=== PATIENT | male | born 1965 | race Caucasian/White ===

== ENCOUNTER 2019-09-17 09:48 | Emergency (ER) | payer MEDICAID ==
--- OUTSIDE RECORDS SUMMARY | 2019-09-17 09:51 | XMS REPORT ---
:1965 [facility] Address [address] [place] [address] Dr. Sargent. [address] [place] [id number] Care Team Providers Name Role Phone STEVE DOLAN Unavailable Unavailable Problems This patient has no known problems. Allergies, Adverse Reactions, Alerts This patient has no known allergies or adverse reactions. Medications This patient has no known medications. Encounters Start End Encounter Admission Attending Care Care Encounter Date/Time Date/Time Type Type Clinicians Facility Department ID 2019-06-26 2019-06-26 Inpatient [facility] [id number] 13:42:00 11:23:00 2019-01-26 2019-01-26 Inpatient [facility] [id number] 04:35:00 04:35:00 Results Test Description Test Time Test Comments Text Results Atomic Results Result Comments [place]ST [place] [address] Patient Name: LADARIUS MARTIN MR #: [id number] : (NOT 1965 Age/Sex: 51/M Req #: [id number] Adm Physician: PORTABLE) Ordered by: STEVE DOLAN MD Report #: [id number] Location: ER Room/Bed: Procedure: [id number] DX/CHEST SINGLE (NOT PORTABLE) Exam Date: 09/30/17 Exam Time: 2104 REPORT STATUS: Signed CHEST SINGLE (NOT PORTABLE), 09/30/2017 8:51 PM Technique : CHEST SINGLE (NOT PORTABLE) Comparison: None available. Clinical history: Shortness of breath, cough Findings: Limited by portable technique and soft tissue attenuation. Given this, grossly unremarkable appearance of the heart, mediastinum, lungs and pleural spaces.. Impression: 1. Lines/Tubes : None 2. No definite acute abnormality. Signed by: Dr Dane Broussard MD on 09/30/2017 9:36 PM Dictated By: DANE BROUSSARD MD 35 Transcribed By: TONY on 09/30 COPY TO: STEVE DOLAN MD
[2019-09-17] MEDS ORDERED: MORPHINE 4 MG/ML SYR ONE (10:42)
[2019-09-17] MEDS ORDERED: ONDANSETRON 4 MG/2 ML VIAL ONE (10:42)
[2019-09-17 11:12] LABS: Absolute Lymphocytes (CBC) 1.2 K/uL (0.7-4.9); Basophils % 0.8 % (0-1.3); Hematocrit 43.1 % (39.6-49.0); Lymphocytes % 16.1 % (15.3-44.8); MPV 8.9 fL (7.6-11.3); RBC Red Blood Cell Count 4.99 M/uL (4.33-5.43)
[2019-09-17 11:29] LABS: Albumin 3.8 g/dL (3.4-5.0); Bilirubin Direct 0.1 mg/dL (0-0.2); Bilirubin Total 0.5 mg/dL (0.2-1.0); Potassium 3.9 mmol/L (3.5-5.1); Protein, Total 6.9 g/dL (6.4-8.2)
--- NOTE | 2019-09-17 12:02 | RAD REPORT ---
EXAM DESCRIPTION: CTAbdomen Pelvis W Contrast - 09/17/2019 11:52 am CLINICAL HISTORY: Abdominal pain. ABD PAIN COMPARISON: <Comparisons> TECHNIQUE: Biphasic CT imaging of the abdomen and pelvis was performed with 100 ml non-ionic IV cont rast. All CT scans are performed using dose optimization technique as appropriate and may include automated exposure control or mA/KV adjustment according to patient size. FINDINGS: The lung bases are clear. The liver, spleen, pancreas, adrenal glands and right kidney are within normal limits. Punctate calcu yolande left kidney without hydronephrosis. No bowel obstruction, free air, free fluid or abscess. Sigmoid diverticulosis coli without diverticul itis. The appendix is normal. No evidence of significant lymphadenopathy. No suspicious bony findings. IMPRESSION: Sigmoid diverticulosis coli without diverticulitis. Punctate left renal calculus without hydronephrosis.
[2019-09-17] MEDS ORDERED: DICYCLOMINE HCL 10 MG CAP ONE (12:43)
--- NOTE | 2019-09-17 12:45 | EDPHYS ---
Physician Documentation [facility] Name: Lexa Bower Age: 53 yrs Sex: Male : 1965 Arrival Date: 09/17/2019 Time: 09:49 Bed 13 Private MD: ED Physician Pedro Rajan HPI: 09/17 10:35 This 53 yrs old Male presents to ER via EMS with complaints of kdr Nausea/Vomiting/Diarrhea, Abd Pain > 50 y/o. 10:35 The patient presents to the emergency department with nausea, that is mild, vomiting, kdr that is intermittent, diarrhea, that is intermittent, abdominal pain, of the left upper quadrant and left lower quadrant, described as achy, crampy, steady, vague,\E\. Onset: The symptoms/episode began/occurred this morning. Possible causes: unknown. The symptoms are aggravated by movement, pressure, The symptoms are alleviated by nothing. Associated signs and symptoms: Pertinent positives: abdominal pain, diarrhea, nausea, vomiting. Severity of symptoms: At their worst the symptoms were mild in the emergency department the symptoms are unchanged. The patient has experienced similar episodes in the past, a few times. The patient has not recently seen a physician. Historical: - Allergies: 09:56 NKDA; tw2 - Home Meds: 09:56 symbicort [Active]; Insulin: Regular Sub-Q [Active]; pain pump [Active]; Alprazolam tw2 Oral [Active]; Stadol NS Nasal [Active]; Albuterol Inhl [Active]; oxycodone 30 mg Oral tab 1 tab every 6 hours [Active]; blood pressure medicine unknown [Active]; - PMHx: 09:56 COPD; Depression; Diabetes - IDDM; GERD; High Cholesterol; Hypertension; Migraines; tw2 Seizures; - Immunization history:: Adult Immunizations. - Social history:: Smoking status: . - Ebola Screening: : Patient denies travel to an Ebola-affected area in the 21 days before illness onset. ROS: 10:35 Constitutional: Negative for fever, chills, and weight loss, Eyes: Negative for injury, kdr pain, redness, and discharge, ENT: Negative for injury, pain, and discharge, Neck: Negative for injury, pain, and swelling, Cardiovascular: Negative for chest pain, palpitations, and edema, Respiratory: Negative for shortness of breath, cough, wheezing, and pleuritic chest pain, Back: Negative for injury and pain, : Negative for injury, bleeding, discharge, and swelling, MS/Extremity: Negative for injury and deformity, Skin: Negative for injury, rash, and discoloration, Neuro: Negative for headache, weakness, numbness, tingling, and seizure activity. Psych: Negative for depression, anxiety, suicide ideation, homicidal ideation, and hallucinations, Allergy/Immunology: Negative for hives, rash, and allergies, Endocrine: Negative for neck swelling, polydipsia, polyuria, polyphagia, and marked weight changes, Hematologic/Lymphatic: Negative for swollen nodes, abnormal bleeding, and unusual bruising. 10:35 Abdomen/GI: Positive for abdominal pain, nausea and vomiting, diarrhea, Negative for constipation, abdominal distension, black/tarry stool, rectal pain. Exam: 10:35 Constitutional: This is a well developed, well nourished patient who is awake, alert, kdr and in mild distress. Head/Face: Normocephalic, atraumatic. Eyes: Pupils equal round and reactive to light, extra-ocular motions intact. Lids and lashes normal. Conjunctiva and sclera are non-icteric and not injected. Cornea within normal limits. Periorbital areas with no swelling, redness, or edema. Neck: Trachea midline, no thyromegaly or masses palpated, and no cervical lymphadenopathy. Supple, full range of motion without nuchal rigidity, or vertebral point tenderness. No Meningismus. Chest/axilla: Normal chest wall appearance and motion. Nontender with no deformity. No lesions are appreciated. Cardiovascular: Regular rate and rhythm with a normal S1 and S2. No gallops, murmurs, or rubs. Normal PMI, no JVD. No pulse deficits. Respiratory: Lungs have equal breath sounds bilaterally, clear to auscultation and percussion. No rales, rhonchi or wheezes noted. No increased work of breathing, no retractions or nasal flaring. Back: No spinal tenderness. No costovertebral tenderness. Full range of motion. Skin: Warm, dry with normal turgor. Normal color with no rashes, no lesions, and no evidence of cellulitis. MS/ Extremity: Pulses equal, no cyanosis. Neurovascular intact. Full, normal range of motion. Neuro: Awake and alert, GCS 15, oriented to person, place, time, and situation. Cranial nerves II-XII grossly intact. Motor strength 5/5 in all extremities. Sensory grossly intact. Cerebellar exam normal. Normal gait. Psych: Awake, alert, with orientation to person, place and time. Behavior, mood, and affect are within normal limits. 10:35 Abdomen/GI: Inspection: abdomen appears normal, Bowel sounds: diminished, in all quadrants, Palpation: soft, mild abdominal tenderness, in the left upper quadrant and left lower quadrant, mass, is not appreciated, rebound tenderness, is not appreciated, voluntary guarding, is not appreciated, involuntary guarding, is not appreciated. Vital Signs: 09:57 BP 172 / 126; Pulse 86; Resp 17; Temp 97.9(TE); Pulse Ox 96% on R/A; Weight 117.93 kg tw2 (R); Pain 10/10; 10:07 BP 142 / 97; Pulse 64; Resp 17; Pulse Ox 98% on R/A; tw2 10:50 BP 161 / 117; Pulse 95; Resp 17; Pulse Ox 98% on R/A; tw2 12:02 BP 174 / 115; Pulse 99; Resp 17; Pulse Ox 98% on R/A; tw2 13:15 BP 155 / 97; Pulse 90; Resp 17; Pulse Ox 99% on R/A; tw2 MDM: 12:44 Patient medically screened. kdr 12:51 Data reviewed: vital signs, nurses notes, lab test result(s), radiologic studies. kdr Counseling: I had a detailed discussion with the patient and/or guardian regarding: the historical points, exam findings, and any diagnostic results supporting the discharge/admit diagnosis, lab results, radiology results, the need for outpatient follow up. 09/17 10:26 Order name: Basic Metabolic Panel; Complete Time: 11:30 kdr 09/17 10:26 Order name: CBC with Diff; Complete Time: 11:28 kdr 09/17 10:26 Order name: Creatinine for Radiology; Complete Time: 11:28 kdr 09/17 10:26 Order name: Hepatic Function; Complete Time: 11:30 kdr 09/17 10:26 Order name: Lipase; Complete Time: 11:30 kdr 09/17 10:34 Order name: CT Abd/Pelvis - IV Contrast Only; Complete Time: 12:41 kdr 12/02 10:26 Order name: IV Saline Lock; Complete Time: 10:49 kdr 09/17 10:26 Order name: Labs collected and sent; Complete Time: 10:49 kdr 09/17 12:07 Order name: PO challenge; Complete Time: 12:16 kdr Administered Medications: 10:43 Drug: Zofran 4 mg Route: IVP; Site: right antecubital; tw2 12:17 Follow up: Response: No adverse reaction; Nausea is decreased tw2 10:45 Drug: morphine 4 mg Route: IVP; Site: right antecubital; tw2 12:16 Follow up: Response: No adverse reaction; Pain is unchanged, physician notified; RASS: tw2 Alert and Calm (0) 12:42 Drug: Bentyl 20 mg Route: PO; tw2 13:15 Follow up: Response: No adverse reaction tw2 Disposition: 09/17/19 12:44 Discharged to Home. Impression: Abdominal and pelvic pain, Nausea, Nausea and vomiting, Diarrhea, unspecified. - Condition is Stable. - Discharge Instructions: Abdominal Pain, Adult, [id number]. - Prescriptions for Zofran ODT 4 mg Oral tablet,disintegrating - place 2 tablet by TRANSLINGUAL route every 8 hours As needed; 16 tablet. Bentyl 20 mg Oral Tablet - take 1 tablet by ORAL route every 6 hours As needed; 20 tablet. Pepcid 20 mg Oral Tablet - take 1 tablet by ORAL route every 12 hours for 5 days; 10 tablet. Tramadol 50 mg Oral Tablet - take 1 tablet by ORAL route every 8 hours as needed; 12 tablet. - Medication Reconciliation Form, Thank You Letter, Prescription Opioid Use form. - Follow up: Private Physician; When: 2 - 3 days; Reason: If symptoms return, Further diagnostic work-up, Recheck today's complaints, Continuance of care, Re-evaluation by your physician. - Problem is an acute exacerbation. - Symptoms have improved. Signatures: Dispatcher [employer] EDMS Pedro Rajan MD MD kdr Lupe Anderson RN RN tw2 Corrections: (The following items were deleted from the chart) 12:44 12:44 09/17/2019 12:44 Discharged to Home. Impression: Abdominal and pelvic pain. kdr Condition is Stable. Forms are Medication Reconciliation Form, Thank You Letter, Antibiotic Education, Prescription Opioid Use. Follow up: Private Physician; When: 2 - 3 days; Reason: If symptoms return, Further diagnostic work-up, Recheck today's complaints, Continuance of care, Re-evaluation by your physician. Problem is an acute exacerbation. Symptoms have improved. kdr 13:18 12:44 09/17/2019 12:44 Discharged to Home. Impression: Abdominal and pelvic pain; tw2 Nausea; Nausea and vomiting; Diarrhea, unspecified. Condition is Stable. Forms are Medication Reconciliation Form, Thank You Letter, Antibiotic Education, Prescription Opioid Use. Follow up: Private Physician; When: 2 - 3 days; Reason: If symptoms return, Further diagnostic work-up, Recheck today's complaints, Continuance of care, Re-evaluation by your physician. Problem is an acute exacerbation. Symptoms have improved. kdr
--- NOTE | 2019-09-17 12:45 | ER ---
Nurse's Notes [facility] Name: Lexa Bower Age: 53 yrs Sex: Male : 1965 Arrival Date: 09/17/2019 Time: 09:49 Bed 13 Private MD: Diagnosis: Abdominal and pelvic pain;Nausea;Nausea and vomiting;Diarrhea, unspecified Presentation: 09/17 09:52 Presenting complaint: EMS states: pt c/o NVD since last night, was living in an tw2 assisted living facility and was going to be transferred to another one and they have his medicine but he hasnt had any since last night, vs stable, BGL 334, 4mg IV Zofran given. Transition of care: patient was not received from another setting of care. Onset of symptoms was September 17, 2019. Risk Assessment: Do you want to hurt yourself or someone else? Patient reports no desire to harm self or others. Initial Sepsis Screen: Does the patient meet any 2 criteria? No. Patient's initial sepsis screen is negative. Does the patient have a suspected source of infection? No. Patient's initial sepsis screen is negative. Care prior to arrival: Medication(s) given: zofran 4 mg, IV initiated. 20 GA, in the right antecubital area. 09:52 Method Of Arrival: EMS: [facility] tw2 09:52 Acuity: JENNY 3 tw2 Triage Assessment: 09:54 General: Appears uncomfortable, obese, unkempt, Behavior is cooperative. Pain: tw2 Complains of pain in abdomen. GI: Reports lower abdominal pain, upper abdominal pain, diarrhea, nausea, vomiting. Historical: - Allergies: 09:56 NKDA; tw2 - Home Meds: 09:56 symbicort [Active]; Insulin: Regular Sub-Q [Active]; pain pump [Active]; Alprazolam tw2 Oral [Active]; Stadol NS Nasal [Active]; Albuterol Inhl [Active]; oxycodone 30 mg Oral tab 1 tab every 6 hours [Active]; blood pressure medicine unknown [Active]; - PMHx: 09:56 COPD; Depression; Diabetes - IDDM; GERD; High Cholesterol; Hypertension; Migraines; tw2 Seizures; - Immunization history:: Adult Immunizations. - Social history:: Smoking status: . - Ebola Screening: : Patient denies travel to an Ebola-affected area in the 21 days before illness onset. Screenin:58 Abuse screen: Denies threats or abuse. Nutritional screening: No deficits noted. tw2 Tuberculosis screening: No symptoms or risk factors identified. Fall Risk None identified. Assessment: 10:08 General: Appears uncomfortable, obese, unkempt, Behavior is cooperative, appropriate tw2 for age, fussy, pt moaning continuously.. Pain: Complains of pain in abdomen. Neuro: Level of Consciousness is awake, alert, obeys commands, Oriented to person, place, time, situation. Cardiovascular: Heart tones S1 S2 Patient's skin is warm and dry. Respiratory: Airway is patent Respiratory effort is even, unlabored, Respiratory pattern is regular, symmetrical, Breath sounds are clear bilaterally. GI: Abdomen is round obese, Bowel sounds present X 4 quads. GI: Reports lower abdominal pain, upper abdominal pain, cramping, diarrhea, nausea, vomiting. : No signs and/or symptoms were reported regarding the genitourinary system. EENT: No signs and/or symptoms were reported regarding the EENT system. Derm: No signs and/or symptoms reported regarding the dermatologic system. Musculoskeletal: Circulation, motion, and sensation intact. 10:09 Reassessment: pt request bedside commode at this time, states "I am about to poop tw2 myself", bedside commode and wipes provided. 10:49 Reassessment: No changes from previously documented assessment. Patient and/or family tw2 updated on plan of care and expected duration. Pain level reassessed. Patient is alert, oriented x 3, equal unlabored respirations, skin warm/dry/pink. 12:02 Reassessment: Patient appears in no apparent distress at this time. Patient and/or tw2 family updated on plan of care and expected duration. Pain level reassessed. Patient is alert, oriented x 3, equal unlabored respirations, skin warm/dry/pink. 12:17 Reassessment: Patient and/or family updated on plan of care and expected duration. Pain tw2 level reassessed. Patient is alert, oriented x 3, equal unlabored respirations, skin warm/dry/pink. pt states "pain never went away" Patient states symptoms have not improved. 12:51 Reassessment: pt asked me to call mother at [phone] for ride, no answer, left msg. tw2 spoke with Brother Jesús at [phone] and he said mother is on the way up here at this time. 13:12 Reassessment: mother is speaking with Dr. Rajan at this time. tw2 Vital Signs: 09:57 BP 172 / 126; Pulse 86; Resp 17; Temp 97.9(TE); Pulse Ox 96% on R/A; Weight 117.93 kg tw2 (R); Pain 10/10; 10:07 BP 142 / 97; Pulse 64; Resp 17; Pulse Ox 98% on R/A; tw2 10:50 BP 161 / 117; Pulse 95; Resp 17; Pulse Ox 98% on R/A; tw2 12:02 BP 174 / 115; Pulse 99; Resp 17; Pulse Ox 98% on R/A; tw2 13:15 BP 155 / 97; Pulse 90; Resp 17; Pulse Ox 99% on R/A; tw2 ED Course: 09:49 Patient arrived in ED. iw 09:49 Bed in low position. Call light in reach. Side rails up X2. tire inspector on. Pulse tw2 ox on. NIBP on. Warm blanket given. 09:52 Lupe Anderson, KATHY is Primary Nurse. tw2 09:54 Triage completed. tw2 09:54 Arm band placed on. tw2 10:04 Pedro Rajan MD is Attending Physician. kdr 11:53 CT Abd/Pelvis - IV Contrast Only In Process Unspecified. EDMS 12:57 Awaiting transportation, Awaiting: prior to discharge at this time, mother is on her tw2 way here to our facility per brother Jesús. 12:57 No provider procedures requiring assistance completed. Maintain EMS IV. Dressing tw2 intact. Good blood return noted. Site clean \\T\\ dry. Gauge \\T\\ site: 20g RIGHT AC. 13:18 IV discontinued, intact, bleeding controlled, No redness/swelling at site. Pressure tw2 dressing applied. Administered Medications: 10:43 Drug: Zofran 4 mg Route: IVP; Site: right antecubital; tw2 12:17 Follow up: Response: No adverse reaction; Nausea is decreased tw2 10:45 Drug: morphine 4 mg Route: IVP; Site: right antecubital; tw2 12:16 Follow up: Response: No adverse reaction; Pain is unchanged, physician notified; RASS: tw2 Alert and Calm (0) 12:42 Drug: Bentyl 20 mg Route: PO; tw2 13:15 Follow up: Response: No adverse reaction tw2 Outcome: 12:44 Discharge ordered by . kdr 13:17 Discharged to home via wheelchair, with family. tw2 13:17 Condition: stable 13:17 Discharge instructions given to patient, family, Instructed on discharge instructions, follow up and referral plans. no drinking with medication, no driving heavy equipment, medication usage, Demonstrated understanding of instructions, follow-up care, medications, Prescriptions given X 4. 13:18 Patient left the ED. tw2 Signatures: Dispatcher [employer] EDMS Pedro Rajan MD MD kdr Williams, Irene, RN RN iw Lupe Anderson RN RN tw2 Corrections: (The following items were deleted from the chart) 10:14 10:08 General: Appears uncomfortable, obese, unkempt, Behavior is cooperative, tw2 appropriate for age, tw2
[2019-09-17 13:50] VITALS: TEMP 97.9
[2019-09-17 13:56] VITALS: BP 155/97; O2SAT 99
== END 2019-09-17 13:18 | disposition home or self-care (01) ==
LOC: ER 09:48
DX: R11.2 Nausea with vomiting, unspecified (principal); R19.7 Diarrhea, unspecified; I10 Essential (primary) hypertension; E11.9 Type 2 diabetes mellitus without complications; E78.00 Pure hypercholesterolemia, unspecified; F32.9 Major depressive disorder, single episode, unspecified; J44.9 Chronic obstructive pulmonary disease, unspecified; G40.909 Epilepsy, unspecified, not intractable, without status epilepticus; Z79.4 Long term (current) use of insulin
CPT/HCPCS: 85025; 80048; 36415; 80076; 83690; 74177; 96375; 96374; 99284; Q9967; J2405

== ENCOUNTER 2021-03-09 21:22 | Emergency (ER) | payer MEDICAID ==
--- OUTSIDE RECORDS SUMMARY | 2021-03-09 21:32 | XMS REPORT | Continuity of Care Document ---
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 40 mg Product Wasted: _0__ mg NS (Bolus) No 1,000 mL, Me moria IV 06-26 1,000 l 16:33: ml/hr, Infuse Over: 1 hr, Route: IV, ONCE, Priority: STAT, Dosing Weight 127.273 kg, Start date: 06/26/19 11:33:00 CDT, Stop date: 06/26/19 11:33:00 CDT Saline No Notes: Memoria Flush 0.9% 06-26 (Same as: l 16:26: BD [place] 00 Posiflush) Magnesium No 2 gm, Memoria Sulfate 06-26 Route: l 16:26: IVPB, [place] ONCE, Dosing Weight 117.926, kg, Priority: STAT, Start date: 06/26/19 11:26:00 CDT, Stop date: 06/26/19 11:26:00 CDT methylPREDN 2019-0 No 80 mg, Vance valerie ISolone 06-26 Route: l SODium 16:26: IVP, ONCE, Lindsay nn SUCCinate 00 Dosing Weight 117.926, kg, Priority: STAT, Start date: 06/26/19 11:26:00 CDT, Stop date: 06/26/19 11:26:00 CDT Albuterol No 9 mL, Memoria 0.833 MG/ML 06-26 Route: l / 16:26: NEB, Drug Nayan Ipratropium Form: [place] SOLN, 0.167 MG/ML Dosing Inhalant Weight Solution 117.926, kg, ONCE, STAT, Start date: 06/26/19 11:26:00 CDT, Stop date: 06/26/19 11:26:00 CDT levofloxaci Yes 750 mg = 1 Memoria n 750 mg 4-15 tab, PO, l oral tablet 20:43: Daily, X 7 [place] 00 day, # 7 tab, 0 Refill(s) insulin Yes 45 unit, Memori a isophane 4-15 SUB-Q, l (NPH) 100 20:43: Q12H, # 10 He rmann units/mL 00 mL, 0 human Refill(s) recombinant subcutaneou s suspension insulin, No Notes: Memoria isophane 4-14 Roll in l 16:51: palms of hands gently; Do not shake vigorously . (Same as: NovoLIN N, Humulin N) Do not hold insulin without contacting prescriber "single patient use only" WASTE: F/P - Black; E - Municipal Trash Bin Stable for 14 days at room temperatur e Expires in days from ____Date Docusate No Notes: Memoria Sodium 100 4-13 (Same as: l MG Oral 22:00: Colace) Nayan Capsule (Do Not [Colace] Crush) Diphenhydra No Notes: Vance valerie mine 4-13 (Same as: l 17:20: Benadryl) Milk of No Notes: Memoria Magnesia 4-13 (Same as: l 17:20: Milk of Magnesia, MOM) Simethicone No Notes: Vance valerie 4-13 (Same as: l 17:20: Mylicon) Ondansetron No Notes: Vance valerie 4-13 (Same as: l 17:20: Zofran) MEDICATION WASTE Product Size: 4 mg Product Wasted: ___ mg Tessalon No Notes: Memoria Perles 4-13 (Same As: l 17:20: Tessalon Perles) "Do Not Crush" metoprolol No Notes: Memor ia extended 4-13 (Same as: l release 14:36: Toprol XL) Do Not Crush insulin, No Notes: Memoria isophane 4-13 Roll in l 14:36: palms of [place] 00 hands gently; Do not shake vigorously . (Same as: Humulin N) Do not hold insulin without contacting prescriber WASTE: F/P - Black; E - Municipal Trash Bin Stable for 28 days at room temperatur e Expires in days from ____Date Azithromyci No Notes: Vance valerie n 4-13 Take 1 l 14:00: hour Nayan 00 before or 2 hours after meals. (Same As: Zithromax) duloxetine No Notes: Memor ia 4-13 (Same as: l 14:00: Cymbalta) (Do Not Crush) Diltiazem No Notes: Memori a 4-13 (Same l 14:00: as:Cardize Nayan m CD) Before meals. DO NOT CRUSH. Prednisone No Notes: Memor ia 4-13 Take with l 14:00: food. [place] 00 Mirtazapine No Notes: Vance valerie 4-13 (Same l 02:00: as:Remeron ) insulin, No Notes: Memoria isophane 4-13 Roll in l 02:00: palms of Nayan 00 hands gently; Do not shake vigorously . (Same as: Humulin N) Do not hold insulin without contacting prescriber WASTE: F/P - Black; E - Municipal Trash Bin Stable for 28 days at room temperatur e Expires in days from ____Date Clonazepam No Notes: Memor ia 4-13 (Same As: l 02:00: KlonoPIN) atorvastati No Notes: Vance valerie n -13 (Same As: l 02:00: Lipitor) Divalproex No 1,000 mg, Me moria Sodium 500 - 4 tab, l MG Enteric 02:00: Route: PO, H ermann Coated Drug form: Tablet ECTAB, BID, Dosing Weight 117.926, kg, Start date: 01/26/19 21:00:00 CDT, Duration: 30 day, Stop date: 02/25/19 9:00:00 CDT, Delayed Release tablet Baclofen No Notes: Memoria 12 (Same As: l 22:00: Lioresal) Divalproex No 500 mg, Vance valerie Sodium 500 01-26 Route: PO, l MG Enteric 21:00: Drug form: H ermann Coated ECTAB, Tablet Q8H, Dosing Weight 117.926, kg, Start date: 01/26/19 16:00:00 CDT, Duration: 30 day, Stop date: 02/25/19 8:00:00 CDT, Delayed Release tablet 24 HR No Notes: Memoria Metoprolol -12 (Same as: l Tartrate 50 19:30: Toprol XL) MG Extended May split Release tab, but Tablet do not [Toprol] crush. baclofen 5 Yes 5 mg = 1 Mem oria mg oral 4-12 tab, PO, l tablet 19:02: BID, 0 Refill(s) Haldol No Notes: Memoria 4-12 (Same as: l 18:43: Haldol) zolpidem No Notes: Memoria 4-12 (Same As: l 18:41: Ambien) Acetaminoph 2019-0 No Notes: Vance valerie en 325 MG / 4-12 Same as l Hydrocodone 18:40: Panacea Lindsay nn Bitartrate 00 325-7.5mg 7.5 MG Oral Do not Tablet exceed [Panacea 4gm/day of 7.5/325] acetaminop Divalproex No 500 mg, 2 Me moria Sodium 500 4-12 tab, l MG Enteric 17:00: Route: PO, H ermann Coated 00 Drug form: Tablet ECTAB, Lunch, Dosing Weight 117.926, kg, Start date: 01/26/19 12:00:00 CDT, Duration: 30 day, Stop date: 02/24/19 12:00:00 CDT, Delayed Release tablet Ceftriaxone No Notes: Vance valerie -12 (Same As: l 17:00: Rocephin). Nayan 00 Use with 100 mL NS and infuse over 30 min MEDICATION WASTE Product Size: 1000 mg Product Wasted: ___ mg Regular Yes See Memoria Insulin, -12 Instructio l Human 100 16:41: ns, SUB-Q, He rmann UNT/ML 00 0 Injectable Refill(s) Solution [Humulin R] Baclofen No .5, PO, Memori a 4-12 BID, 0 l 16:32: Refill(s) Nayan 00 atorvastati Yes 20 mg = 1 M emoria n 20 mg 4-12 tab, PO, l oral tablet 16:14: Bedtime, # Nayan 00 90 tab, 1 Refill(s) Mirtazapine Yes 15 mg = 1 M emoria 15 MG Oral 4-12 tab, PO, l Tablet 16:14: Bedtime, # Lindsay nn 00 30 tab, 0 Refill(s) DULoxetine Yes 60 mg = 2 Me moria 30 mg oral 4-12 cap, PO, l delayed 16:14: Daily, # Tony n release 00 90 cap, 0 capsule Refill(s) Lorazepam No Notes: Memori a 4-12 (Same as: l 16:14: Ativan) Nayan 00 zolpidem 10 Yes 10 mg = 1 M emoria mg 4-12 tab, SL, l sublingual 16:14: Bedtime, Her adkins tablet 00 PRN for sleep, 0 Refill(s) clonazePAM Yes 1 mg = 1 Mem oria 1 mg oral 4-12 tab, PO, l tablet 16:14: BID, # 60 Tony n 00 tab, 0 Refill(s) diltiazem Yes 180 mg = 1 Me moria 180 mg/24 4-12 cap, PO, l hours oral 16:14: Daily, # Her adkins capsule, 00 30 cap, 0 extended Refill(s) release Glipizide Yes 10 mg = 1 Mem oria 10 MG Oral 4-12 tab, PO, l Tablet 16:14: BID-Before Lindsay nn 00 Meals, # 180 tab, 1 Refill(s) metoprolol Yes 50, PO, Vance valerie 50 mg oral 4-12 Daily, # l tablet, 16:14: 30 tab, 0 Lindsay nn extended 00 Refill(s) release Metformin Yes 1,000 mg = Me moria hydrochlori 4-12 1 tab, PO, l de 1000 MG 16:14: BID-Meals, H ermann Oral Tablet 00 # 30 tab, 0 Refill(s) Magnesium No Notes: Memori a Sulfate 01-26 WASTE: F/P l 16:10: - Sink; E - Municipal Trash Bin Amlodipine No Notes: Memor ia -12 (Same as: l 16:06: Norvasc) Insulin No Notes: Memoria Lispro -12 (Same as: l 16:04: Humalog ) Roll in palms of hands gently; Do not shake `vigorousl y. "Single Patient Use Only " WASTE: F/P - Black; E - Municipal Trash Bin Stable for 28 days at room temperatur e. Expires in days from ____Date Dextrose No 25 gm, 50 Vance valerie 50% Syringe 4-12 mL, Route: l 16:04: IVP, Drug Form: INJ, Dosing Weight 117.926, kg, PRN, PRN Blood Glucose Results, Start date: 01/26/19 11:04:00 CDT, Duration: 30 day, Stop date: 02/25/19 11:03:00 CDT Glucagon 2019-0 No 1 mg, Memoria 4-12 Route: IM, l 16:04: Drug form: Nayan PDR/INJ, PRN, Dosing Weight 117.926, kg, PRN Blood Glucose Results, Start date: 01/26/19 11:04:00 CDT, Duration: 30 day, Stop date: 02/25/19 11:03:00 CDT Albuterol 2018-0 No Notes: Memori a 0.833 MG/ML - (Same as: l / 13:00: Duoneb) Ipratropium 00 Badger 0.167 MG/ML Inhalant Solution methylPREDN 2018-0 No Notes: Vance valerie ISolone -12 (Same l SODium 13:00: as:Solu-ME Lindsay nn SUCCinate 00 DROL, A-Methapre d) Insulin 2018- No Notes: Memoria Lispro -12 (Same as: l 10:51: Humalog ) Roll in palms of hands gently; Do not shake `vigorousl y. "Single Patient Use Only " WASTE: F/P - Black; E - Municipal Trash Bin Stable for 28 days at room temperatur e. Expires in days from ____Date Glucagon 2019-0 No 1 mg, Memoria 4-12 Route: IM, l 10:51: Drug form: [place] PDR/INJ, PRN, Dosing Weight 127.273, kg, PRN Blood Glucose Results, Priority: STAT, Start date: 01/26/19 5:51:00 CDT, Duration: 30 day, Stop date: 02/25/19 5:50:00 CDT Dextrose 2019-0 No 25 gm, 50 Vance valerie 50% Syringe 4-12 mL, Route: l 10:51: IVP, Drug Form: INJ, Dosing Weight 127.273, kg, PRN, PRN Blood Glucose Results, Start date: 01/26/19 5:51:00 CDT, Duration: 30 day, Stop date: 02/25/19 5:50:00 CDT Saline 2019-0 No Notes: Memoria Flush 0.9% -12 (Same as: l 10:51: BD Nayan 00 Posiflush) Azithromyci No Notes: Vance valerie n 4-12 Take 1 l 10:51: hour [place] 00 before or 2 hours after meals. (Same As: Zithromax) Sodium No 1,000 mL, Memori a Chloride -12 1000 l 0.9% 06:53: ml/hr, [place] (Bolus) IV 00 Infuse Over: 1 hr, Route: IV, 1,000, Drug form: INJ, ONCE, Priority: STAT, Dosing Weight 127.273 kg, Start date: 01/26/19 1:53:00 CDT, Stop date: 01/26/19 1:53:00 CDT Aspirin No Notes: Memoria 4-12 Take with l 05:26: food. Morphine 2016-10 No 4 mg, Memoria 1-12 Route: l 21:24: IVP, ONCE, Dosing Weight 136.364, kg, Priority: STAT, Start date: 08/28/17 15:24:00 BRASS PICKLER, Stop date: 08/28/17 15:24:00 BRASS PICKLER Ondansetron 2016-10 No 4 mg, Memor ia 10-28 Route: l 21:24: IVP, Drug form: INJ, ONCE, Dosing Weight 136.364, kg, Priority: STAT, Start date: 08/28/17 15:24:00 BRASS PICKLER, Stop date: 08/28/17 15:24:00 BRASS PICKLER Lasix No 20 mg, Memoria 3-13 Route: l 09:21: IVP, Drug form: INJ, ONCE, Dosing Weight 122.727, kg, Priority: STAT, Start date: 12/27/16 4:21:00 CDT, Stop date: 12/27/16 4:21:00 CDT Ativan No Notes: Memoria 3-13 (Same as: l 09:08: Ativan) Ketorolac No 30 mg, Memori a 3-13 Route: IM, l 06:57: ONCE, Dosing Weight 122.727, kg, Start date: 12/27/16 1:57:00 CDT, Stop date: 12/27/16 1:57:00 CDT Benadryl No 25 mg, 1 Memor ia 3-13 tab, l 06:56: Route: PO, [place] 00 Drug form: TAB, ONCE, Dosing Weight 122.727, kg, Priority: STAT, Start date: 12/27/16 1:56:00 CDT, Stop date: 12/27/16 1:56:00 CDT Reglan No Notes: Memoria - (Same as: l 06:56: Reglan) Prednisone No Notes: Memor ia 3-13 Take with l 06:56: food. Albuterol No 2.49 mg, Vance valerie 0.83 MG/ML 12-27 Route: l Inhalant 06:55: NEB, Drug Herm saqib Solution form: SOLN, ONCE, Dosing Weight 122.727, kg, Priority: STAT, Start date: 12/27/16 1:55:00 CDT, Stop date: 12/27/16 1:55:00 CDT Motrin No 600 mg, Memoria 2-06 Route: PO, l 04:22: Drug form: [place] TAB, ONCE, Dosing Weight 113.636, kg, Priority: STAT, Start date: 11/21/16 22:22:00 BRASS PICKLER, Stop date: 11/21/16 22:22:00 BRASS PICKLER Mineral Oil No 120 ml, Mem oria 1000 MG/ML 11-13 LA, Daily, l Enema 10:07: X 1 day, # Tony n [Fleet 00 135 ml, 0 Mineral Refill(s) Oil] GoLYTELY Yes 240 mL, Memori a oral powder 11-13 PO, l for 10:06: Q10Min, # Nayan reconstitut 00 1 ea, 0 ion Refill(s) Citrate of No 300 ml, Vance valerie Magnesia 11-13 Route: PO, l 09:44: Dosing [place] 00 Weight 113.636, kg, ONCE, Start date: 11/13/16 3:44:00 BRASS PICKLER, Stop date: 11/13/16 3:44:00 BRASS PICKLER dextroamphe 2017-0 Yes 30mg QD Take 30 mg Silva tamine-amph -23 by mouth Meth saqib etamine 10:47: daily. st (ADDERALL) 20 30 mg tablet albuterol 2017-0 Yes 1{puff} Q4H Inhale 1 [place] (PROAIR 1-23 puff every Method i HFA,PROVENT 10:47: 4 (four) [address] [place] 20 hours as HFA,VENTOLI needed for N HFA) 90 wheezing. mcg/actuati on inhaler amLODIPine 2016-0 Yes 10mg QD Take 10 mg [place] (NORVASC) 1-23 by mouth Method i 10 mg 10:47: daily. st tablet 20 pantoprazol 2016-0 Yes 40mg QD Take 40 mg Silva e - by mouth Methodi (PROTONIX) 10:47: daily. st 40 MG EC 20 tablet ondansetron 0 Yes 4mg Q.5D Take 4 mg [place] ODT 1-23 by mouth 2 [facility] (ZOFRAN-ODT 10:47: (two) st ) 4 MG 20 times a disintegrat day. ing tablet tiZANidine 2016-0 Yes 4mg Q6H Take 4 mg [place] (ZANAFLEX) - by mouth Metho di 4 MG tablet 10:47: every 6 st 20 (six) hours as needed for muscle spasms. oxyCODone 2017-0 Yes 15mg [id number] Take 15 mg Silva (ROXICODONE - [id number] by mouth 3 [facility] ) 15 MG 10:47: 3D (three) st immediate 20 times a release day. tablet fluticasone 2017-0 Yes 1{puff} Q.5D Inhale 1 Silva -salmeterol 1-23 puff 2 Method i (ADVAIR) 10:47: (two) st 100-50 20 times a mcg/dose day. DISKUS promethazin 2017-0 Yes 25mg QD Take 25 mg Silva e 1-23 by mouth [facility] (PHENERGAN) 10:47: daily. st 25 MG 20 tablet divalproex 2017-0 Yes 1000mg Q.5D Take 1,000 Silva (DEPAKOTE) 1-23 mg by [facility] 500 MG EC 10:47: mouth 2 st tablet 20 (two) times a day. ALPRAZolam 2017 Yes 1mg [id number] Take 1 mg Silva (XANAX) 1 11-08 [id number] by mouth 3 [facility] MG tablet 10:47: 3D (three) st 20 times a day. zolpidem Yes 10mg QD Take 10 mg Ryan ston (AMBIEN) 10 11-08 by mouth Meth saqib mg tablet 10:47: nightly. st 20 Dilaudid No 0.5 mg, Memori a 18 Route: l 20:01: IVP, ONCE, Nayan 00 Dosing Weight 110, kg, Priority: STAT, Start date: 11/03/16 14:01:00 BRASS PICKLER, Stop date: 11/03/16 14:01:00 BRASS PICKLER Sodium Yes 1 ea, LA, Memori a Phosphate, -18 ONCE, # l Dibasic 19:03: 118 mL, 0 Lindsay nn 59.3 MG/ML 00 Refill(s) / Sodium Phosphate, Monobasic 161 MG/ML Enema [Fleet Enema] Lactulose Yes 20 gm = 30 Me moria 667 MG/ML 1-18 mL, PO, l Oral 19:03: BID, PRN Nayan Solution 00 constipati on, X 8 day, # 240 mL, 0 Refill(s) Hydromorpho No 1 mg, Memor ia ne 18 Route: l 16:37: IVP, ONCE, Nayan 00 Dosing Weight 110, kg, Priority: STAT, Start date: 11/03/16 10:37:00 BRASS PICKLER, Stop date: 11/03/16 10:37:00 BRASS PICKLER Saline No Notes: Memoria Flush 0.9% 18 (Same as: l 16:37: BD Nayan Posiflush) Sodium No 1,000 mL, Memori a Chloride -18 Infuse l 0.154 16:37: Over: 1 Nayan MEQ/ML 00 hr, Route: Injectable IV, ONCE, Solution Priority: STAT, Dosing Weight 110 kg, Start date: 11/03/16 10:37:00 BRASS PICKLER, Duration: 1 doses or times, Stop date: 11/03/16 10:37:00 BRASS PICKLER CONSTULOSE 2017-0 Yes Silva 10 gram/15 1-17 [facility] mL solution 00:00: st 00 lisinopril 2017-0 Yes Bernice (PRINIVIL,Z 1-11 [facility] ESTRIL) 20 00:00: st mg tablet 00 hydrOXYzine 2015-10 Yes Hugo oneil (VISTARIL) 2-28 [facility] 50 MG 00:00: st capsule 00 DULoxetine 2015-10 Yes Bernice (CYMBALTA) 2-20 [facility] 30 MG 00:00: st capsule 00 LANTUS 2015-10 Yes Bernice SOLOSTAR 2-14 [facility] 100 unit/mL 00:00: st injection 00 (pen) ADDERALL XR 2015-10 Yes Hugo n 15 mg 24 hr 2-09 [facility] capsule 00:00: st 00 BD INSULIN 2015-10 Yes Bernice PEN NEEDLE 2-08 [facility] UF ORIG 29 00:00: st gauge x 00 1/2" needle CHANTIX 1 2015-10 Yes Bernice mg tablet 2-08 [facility] 00:00: st 00 HUMULIN 2015-10 Yes Bernice 70/30 2-08 [facility] KWIKPEN 100 00:00: st unit/mL 00 (70-30) insulin pen ketoconazol 2015-10 Yes Hugo oneil e (NIZORAL) 1-29 [facility] 2 % shampoo 00:00: st 00 ondansetron 2015-10 Yes Hugo oneil (ZOFRAN) 4 1-22 [facility] MG tablet 00:00: st 00 traZODone 2015-10 Yes Bernice (DESYREL) 1-18 [facility] 50 MG 00:00: st tablet 00 dicyclomine 2015-10 Yes Hugo oneil (BENTYL) 20 0-31 [facility] mg tablet 00:00: st 00 Protonix 2015-10 No Notes: For Mem oria 0-29 IV push l 21:30: reconstitu Nayan 00 te with 10 ml 0.9% sodium chloride and push over 2 minutes. (Same as: Protonix) amLODIPine 2015-10 Yes 10 mg = 1 Me moria 10 mg oral 0-29 tab, PO, l tablet 20:53: Daily, # [place] 00 30 tab, 0 Refill(s) dicyclomine 2015-10 Yes 20 mg = 1 M emoria 20 mg oral 0-29 tab, PO, l tablet 20:37: QID, # 12 Tony n 00 tab, 0 Refill(s) amLODIPine 2015-10 No 10 mg = 1 Me moria 10 mg oral 0-29 tab, PO, l tablet 20:30: Daily, 0 [place] 00 Refill(s) pantoprazol 2015-10 Yes 40 mg = 1 M emoria e 40 MG 0-29 tab, PO, l Enteric 20:30: Daily, # Tony n Coated 00 30 tab, 0 Tablet Refill(s) [Protonix] Ondansetron 2015-10 Yes 4 mg = 1 Me moria 4 MG 0-29 tab, PO, l Disintegrat 20:30: BID, PRN He rmann ing Tablet 00 Nausea and [Zofran] Vomiting, Dissolve tab under tongue, X 5 day, # 10 tab, 0 Refill(s) dicyclomine 2015-10 No 20 mg = 1 M emoria 20 mg oral 0-29 tab, PO, l tablet 20:30: QID, # 20 Tony n 00 tab, 0 Refill(s) Divalproex 2015-10 No Notes: Memor ia Sodium 500 0-29 (Same as: l MG Enteric 17:00: Depakote Her adkins Coated 00 Delayed Tablet Release) Do not confuse with the extended-r elease tablet. Delayed absorption enteric coated tablet. Do not crush Norvasc 2015-10 No Notes: Memoria 0-29 (Same as: l 14:00: Norvasc) Nayan 00 24 HR 2015-10 No Notes: Memoria Divalproex 0-29 (Same as: l Sodium 500 14:00: Depakote Her adkins MG Extended 00 ER) Once Release daily Tablet dosing; indicated for migraines. Divalproe x sodium extended-r elease tab. Do not chew or crush. "Do Not Crush" Aspirin 2015-10 No Notes: Do Memor ia 0-29 not crush l 14:00: or chew. Nayan 00 (Same As: Ecotrin) Nitroglycer 2015-10 No Notes: Vance valerie in 0.4 MG 0-29 (Same l Sublingual 13:50: as:Nitroqu H ermann Tablet 00 ick, Nitrostat) "Do Not Crush" Sublingual tablet Humulin 2015-10 No 45 unit, Memori a 70/30 0-29 Route: l 12:30: SUB-Q, Nayan 00 BID-Before Meals, Dosing Weight 113.636, kg, Start date: 08/14/16 7:30:00 CDT, Duration: 30 day, Stop date: 09/12/16 16:30:00 BRASS PICKLER NovoLOG Mix 2015-10 No Notes: Vance valerie 70/30 0-29 Roll in l FlexPen 12:30: palms of Tony n 00 hands gently; Do not shake vigorously . (Same as: NovoLOG Mix) "single patient use only" WASTE: F/P - Black; E - Municipal Trash Bin Stable for 14 days at room temperatur e Expires in days from ____Date Dextrose 2015-10 No 12.5 gm, Memor ia 50% Syringe 0-29 25 mL, l 02:36: Route: Nayan 00 IVP, Drug Form: INJ, Dosing Weight 109.091, kg, PRN, PRN Blood Glucose Results, Start date: 08/13/16 21:36:00 CDT, Duration: 30 day, Stop date: 09/12/16 20:35:00 BRASS PICKLER Glucagon 2015-10 No 1 mg, Memoria 0-29 Route: IM, l 02:36: Drug form: [place] 00 PDR/INJ, PRN, Dosing Weight 109.091, kg, PRN Blood Glucose Results, Start date: 08/13/16 21:36:00 CDT, Duration: 30 day, Stop date: 09/12/16 20:35:00 BRASS PICKLER Insulin, 2015-10 No Notes: Memoria Aspart, 0-29 Roll in l Human 02:36: palms of [place] 00 hands gently; Do not shake vigorously . (Same as: NovoLOG) "single patient use only" WASTE: F/P - Black; E - Municipal Trash Bin Stable for 28 days at room temperatur e. Expires in days from ____Date Dicyclomine 2015-10 No Notes: Vance valerie 0-29 (Same as: l 02:00: Bentyl) Nayan 00 Labetalol 2015-10 No Notes: Memori a 0-29 (Same as: l 00:30: Normodyne, [place] 00 Trandate) Push over 2 minutes Give bolus over 2-3 minutes. Sodium 2015-10 No 250 mL, Memoria Chloride 0-29 Route: l 0.9% IV 00:21: IVPB, [place] 00 Start date: 08/13/16 19:21:00 CDT, Duration: 30 day, Stop date: 09/12/16 18:20:00 BRASS PICKLER, PRN Line Flush BD Normal 2015-10 No Notes: Memori a Saline 0-29 (Same as: l Flush 00:21: BD [place] 00 Posiflush) 24 HR 2015-10 Yes 1,000 mg = Memori a Divalproex 0-28 2 tab, PO, l Sodium 500 23:44: BID, # 60 He rmann MG Extended 00 tab, 1 Release Refill(s) Tablet insulin 2015-10 Yes 45 units, Memor ia isophane-in 0-28 SUB-Q, l sulin 23:44: BID, 0 [place] regular 00 Refill(s) human recombinant 70 units-30 units/mL subcutaneou s injection Divalproex 2015-10 Yes 500 mg = 1 M emoria Sodium 500 0-28 tab, PO, l MG Enteric 23:44: Lunch, # Her adkins Coated 00 90 tab, 0 Tablet Refill(s) Oxycodone 2015-10 No Notes: Memori a Hydrochlori 0-28 (Same as: l de 5 MG 23:37: Roxicodone Herm saqib Oral Tablet 00 ) Reglan 2015-10 No Notes: Memoria 0-28 (Same as: l 23:31: Reglan) Nayan 00 Zofran 2015-10 No Notes: Memoria 0-28 (Same as: l 23:26: Zofran) Nayan 00 MEDICATION WASTE Product Size: 4 mg Product Wasted: ___ mg sodium 2015-10 No 1,000 mL, Memori a chloride 0-28 Rate: 100 l 0.9% 1000 23:26: ml/hr, Tony n ml INJ 00 Infuse 1,000 mL over: 10 hr, Route: IV, Dosing Weight 113.636 kg, Total Volume: 1,000, Start date: 08/13/16 18:26:00 CDT, Duration: 30 day, Stop date: 09/12/16 18:25:00 BRASS PICKLER Reglan 2015-10 No 10 mg, Memoria 0-28 Route: l 22:32: IVP, Drug Nayan 00 form: INJ, ONCE, Dosing Weight 113.636, kg, Priority: STAT, Start date: 08/13/16 17:32:00 CDT, Stop date: 08/13/16 17:32:00 CDT Zofran 2015-10 No Notes: Memoria 0-28 (Same as: l 22:10: Zofran Nayan 00 ODT) Reglan 2015-10 No Notes: Memoria 0-28 (Same as: l 22:06: Reglan) [place] Ketorolac 2015-10 No 4 days Memor ia 0-28 l 21:12: MEDICATION [place] 00 WASTE Product Size: 30 mg Product Wasted: ___ mg Reglan 2015-10 No Notes: Memoria 0-28 (Same as: l 21:11: Reglan) [place] Ondansetron 2015-10 No Notes: Vance valerie 0-28 (Same as: l 19:08: Zofran) [place] 00 MEDICATION WASTE Product Size: 4 mg Product Wasted: ___ mg Saline 2015-10 No Notes: Memoria Flush 0.9% 0-28 (Same as: l 19:08: BD Nayan Posiflush) Sodium 2015-10 No 1,000 mL, Memori a Chloride 0-28 2,000 l 0.154 19:08: ml/hr, Nayan MEQ/ML 00 Infuse Injectable Over: 30 Solution minutes, Route: IV, 1,000, Drug form: INJ, ONCE, Priority: STAT, Dosing Weight 113.636 kg, Start date: 08/13/16 14:08:00 CDT, Duration: 1 doses or times, Stop date: 08/13/16 14:08:00 CDT SURE 2015-10 Yes Silva COMFORT 0-20 [facility] INSULIN 00:00: st SYRINGE 1 00 mL 29 gauge x 1/2" syringe Diazepam 2 Yes 2 mg = 1 [facility] MG Oral 4-13 tab, PO, l Tablet 02:34: BID, PRN N[facility] [Valium] 00 Anxiety, X 5 day, # 10 tab, 0 Refill(s) Ativan 2016-0 No Notes: [facility] 4-13 (Same as: l 00:31: Ativan) [place] 00 Vital Signs Vital Name Observation Time Observation Value Comments Source Height 2020-07-03 19:29:00 170.18 cm [facility] [place] Weight 2020-07-03 19:29:00 [facility] [place] BMI Calculated 2020-07-03 19:29:00 [facility] [place] Height 2020-05-28 16:26:00 170.18 cm [facility] Weight 2020-05-28 16:26:00 [facility] [place] BMI Calculated 2020-05-28 16:26:00 [facility] [place] Temperature Oral (F) 2020-04-10 19:40:00 98.1 F [facility] [place] Heart Rate 2020-04-10 19:40:00 [facility] [place] Respitory Rate 2020-04-10 19:40:00 [facility] [place] Systolic (mm Hg) 2020-04-10 19:40:00 [facility] [place] Diastolic (mm Hg) 2020-04-10 19:40:00 [facility] Height 2020-04-10 15:21:00 175.26 cm [facility] BMI Calculated 2020-04-10 15:21:00 [facility] Weight 2020-04-10 15:21:00 [facility] [place] Systolic (mm Hg) 2020-04-10 15:21:00 [facility] [place] Diastolic (mm Hg) 2020-04-10 15:21:00 [facility] [place] Heart Rate 2020-04-10 15:21:00 [facility] Respitory Rate 2020-04-10 15:21:00 [facility] [place] Temperature Oral (F) 2020-04-10 15:21:00 97.8 F [facility] Height 2020-04-03 20:44:00 170.18 cm [facility] [place] Weight 2020-04-03 20:44:00 [facility] [place] BMI Calculated 2020-04-03 20:44:00 [facility] [place] Systolic (mm Hg) 2020-04-03 15:52:00 [facility] [place] Diastolic (mm Hg) 2020-04-03 15:52:00 [facility] Heart Rate 2020-04-03 15:52:00 [facility] [place] Height 2020-04-03 15:52:00 175.26 cm [facility] [place] Weight 2020-04-03 15:52:00 [facility] [place] BMI Calculated 2020-04-03 15:52:00 [facility] Respitory Rate 2019-06-28 18:00:00 [facility] [place] Respitory Rate 2019-06-28 17:00:00 [facility] Systolic (mm Hg) 2019-06-28 17:00:00 [facility] Diastolic (mm Hg) 2019-06-28 17:00:00 [facility] [place] Temperature Oral (F) 2019-06-28 17:00:00 98.4 F [facility] Respitory Rate 2019-06-28 16:00:00 [facility] [place] Systolic (mm Hg) 2019-06-28 16:00:00 [facility] [place] Diastolic (mm Hg) 2019-06-28 16:00:00 [facility] [place] Systolic (mm Hg) 2019-06-28 15:00:00 [facility] Diastolic (mm Hg) 2019-06-28 15:00:00 [facility] Height 2019-06-28 10:00:00 170.18 cm [facility] [place] Temperature Oral (F) 2019-06-28 09:00:00 98.4 F [facility] Temperature Oral (F) 2019-06-28 05:00:00 98 F [facility] Height 2019-06-27 14:32:00 170.18 cm [facility] Height 2019-06-27 13:02:00 170.18 cm [facility] Heart Rate 2019-06-26 16:24:00 [facility] [place] BMI Calculated 2019-06-26 16:24:00 [facility] [place] Weight 2019-06-26 16:24:00 [facility] Systolic (mm Hg) 2019-01-29 20:19:00 [facility] Diastolic (mm Hg) 2019-01-29 20:19:00 [facility] [place] Heart Rate 2019-01-29 20:19:00 [facility] Temperature Oral (F) 2019-01-29 20:19:00 98.4 F [facility] [place] Respitory Rate 2019-01-29 20:19:00 [facility] Respitory Rate 2019-01-29 16:40:00 [facility] Temperature Oral (F) 2019-01-29 16:40:00 98.2 F [facility] Heart Rate 2019-01-29 16:40:00 [facility] Systolic (mm Hg) 2019-01-29 16:40:00 [facility] [place] Diastolic (mm Hg) 2019-01-29 16:40:00 [facility] [place] Respitory Rate 2019-01-29 12:40:00 [facility] [place] Systolic (mm Hg) 2019-01-29 12:27:00 [facility] [place] Diastolic (mm Hg) 2019-01-29 12:27:00 [facility] Temperature Oral (F) 2019-01-29 12:27:00 97.9 F [facility] Heart Rate 2019-01-29 12:27:00 [facility] [place] BMI Calculated 2019-01-26 11:13:00 [facility] Weight 2019-01-26 11:13:00 [facility] Height 2019-01-26 11:13:00 170.18 cm [facility] Weight 2019-01-26 05:04:00 [facility] [place] BMI Calculated 2019-01-26 05:04:00 [facility] Height 2019-01-26 05:04:00 177.8 cm [facility] Respitory Rate 2017-08-29 01:30:00 [facility] Respitory Rate 2017-08-29 01:00:00 [facility] Respitory Rate 2017-08-29 00:30:00 [facility] Systolic (mm Hg) 2017-08-28 23:57:00 [facility] [place] Diastolic (mm Hg) 2017-08-28 23:57:00 [facility] Temperature Oral (F) 2017-08-28 23:57:00 97.8 F [facility] [place] Systolic (mm Hg) 2017-08-28 23:30:00 [facility] [place] Diastolic (mm Hg) 2017-08-28 23:30:00 [facility] [place] Systolic (mm Hg) 2017-08-28 22:00:00 [facility] Diastolic (mm Hg) 2017-08-28 22:00:00 [facility] BMI Calculated 2017-08-28 21:02:00 [facility] Weight 2017-08-28 21:02:00 [facility] [place] Height 2017-08-28 21:02:00 175.26 cm [facility] Heart Rate 2017-08-28 21:02:00 [facility] Temperature Oral (F) 2017-08-28 21:02:00 98.3 F [facility] Respitory Rate 2016-12-27 10:52:00 [facility] Systolic (mm Hg) 2016-12-27 10:52:00 [facility] [place] Diastolic (mm Hg) 2016-12-27 10:52:00 [facility] Systolic (mm Hg) 2016-12-27 10:08:00 [facility] Diastolic (mm Hg) 2016-12-27 10:08:00 [facility] [place] Respitory Rate 2016-12-27 10:08:00 [facility] Temperature Oral (F) 2016-12-27 10:08:00 98.8 F [facility] Respitory Rate 2016-12-27 09:03:00 [facility] [place] Systolic (mm Hg) 2016-12-27 09:03:00 [facility] Diastolic (mm Hg) 2016-12-27 09:03:00 [facility] [place] Temperature Oral (F) 2016-12-27 08:15:00 98.4 F [facility] [place] Heart Rate 2016-12-27 06:55:00 [facility] [place] Height 2016-12-27 05:48:00 170.18 cm [facility] [place] Temperature Oral (F) 2016-12-27 05:48:00 98.2 F [facility] [place] Heart Rate 2016-12-27 05:48:00 [facility] Weight 2016-12-27 05:48:00 [facility] BMI Calculated 2016-12-27 05:48:00 [facility] Systolic (mm Hg) 2016-12-26 23:27:00 [facility] [place] Diastolic (mm Hg) 2016-12-26 23:27:00 [facility] [place] Temperature Oral (F) 2016-12-26 23:27:00 98 F [facility] Heart Rate 2016-12-26 23:27:00 [facility] Respitory Rate 2016-12-26 23:27:00 [facility] Height 2016-12-26 22:48:00 165.1 cm [facility] [place] BMI Calculated 2016-12-26 22:48:00 [facility] [place] Weight 2016-12-26 22:48:00 [facility] [place] Heart Rate 2016-12-26 22:48:00 [facility] [place] Respitory Rate 2016-12-26 22:48:00 [facility] [place] Temperature Oral (F) 2016-12-26 22:48:00 98.2 F [facility] [place] Systolic (mm Hg) 2016-12-26 22:48:00 [facility] Diastolic (mm Hg) 2016-12-26 22:48:00 [facility] Systolic (mm Hg) 2016-11-22 05:10:00 [facility] Diastolic (mm Hg) 2016-11-22 05:10:00 [facility] [place] Respitory Rate 2016-11-22 05:10:00 [facility] [place] Heart Rate 2016-11-22 05:10:00 [facility] [place] Temperature Oral (F) 2016-11-22 05:10:00 97.9 F [facility] Heart Rate 2016-11-22 04:30:00 [facility] [place] Respitory Rate 2016-11-22 04:30:00 [facility] Systolic (mm Hg) 2016-11-22 04:30:00 [facility] Diastolic (mm Hg) 2016-11-22 04:30:00 [facility] Heart Rate 2016-11-22 03:30:00 [facility] Respitory Rate 2016-11-22 03:30:00 [facility] Systolic (mm Hg) 2016-11-22 03:30:00 [facility] [place] Diastolic (mm Hg) 2016-11-22 03:30:00 [facility] Temperature Oral (F) 2016-11-22 02:26:00 98 F [facility] [place] Weight 2016-11-22 02:00:00 [facility] Temperature Oral (F) 2016-11-22 02:00:00 98.2 F [facility] Systolic (mm Hg) 2016-11-13 10:48:00 [facility] Diastolic (mm Hg) 2016-11-13 10:48:00 [facility] [place] Respitory Rate 2016-11-13 10:48:00 [facility] [place] Heart Rate 2016-11-13 10:48:00 [facility] Temperature Oral (F) 2016-11-13 10:48:00 97.5 F [facility] [place] Height 2016-11-13 05:39:00 170.18 cm [facility] BMI Calculated 2016-11-13 05:39:00 [facility] [place] Weight 2016-11-13 05:39:00 [facility] Temperature Oral (F) 2016-11-13 05:39:00 98.2 F [facility] Respitory Rate 2016-11-13 05:39:00 [facility] [place] Heart Rate 2016-11-13 05:39:00 [facility] [place] Systolic (mm Hg) 2016-11-13 05:39:00 [facility] [place] Diastolic (mm Hg) 2016-11-13 05:39:00 [facility] Respitory Rate 2016-11-03 20:44:00 [facility] [place] Temperature Oral (F) 2016-11-03 20:44:00 97.8 F [facility] [place] Heart Rate 2016-11-03 20:44:00 [facility] Systolic (mm Hg) 2016-11-03 20:44:00 [facility] Diastolic (mm Hg) 2016-11-03 20:44:00 [facility] [place] Systolic (mm Hg) 2016-11-03 18:00:00 [facility] Diastolic (mm Hg) 2016-11-03 18:00:00 [facility] [place] Respitory Rate 2016-11-03 15:50:00 [facility] Heart Rate 2016-11-03 15:50:00 [facility] Systolic (mm Hg) 2016-11-03 15:50:00 [facility] Diastolic (mm Hg) 2016-11-03 15:50:00 [facility] [place] BMI Calculated 2016-11-03 15:40:00 [facility] Weight 2016-11-03 15:40:00 [facility] [place] Height 2016-11-03 15:40:00 170.18 cm [facility] [place] Respitory Rate 2016-11-03 15:40:00 [facility] Temperature Oral (F) 2016-11-03 15:40:00 97.7 F [facility] Heart Rate 2016-11-03 15:40:00 [facility] [place] Systolic (mm Hg) 2016-08-14 15:15:00 [facility] Diastolic (mm Hg) 2016-08-14 15:15:00 [facility] [place] Respitory Rate 2016-08-14 15:15:00 [facility] Heart Rate 2016-08-14 15:15:00 [facility] [place] Temperature Oral (F) 2016-08-14 15:15:00 98.9 F [facility] Respitory Rate 2016-08-14 12:28:00 [facility] Systolic (mm Hg) 2016-08-14 12:28:00 [facility] [place] Diastolic (mm Hg) 2016-08-14 12:28:00 [facility] Heart Rate 2016-08-14 12:28:00 [facility] [place] Temperature Oral (F) 2016-08-14 12:28:00 98.8 F [facility] [place] Systolic (mm Hg) 2016-08-14 08:22:00 [facility] Diastolic (mm Hg) 2016-08-14 08:22:00 [facility] [place] Heart Rate 2016-08-14 08:22:00 [facility] Temperature Oral (F) 2016-08-14 08:22:00 99 F [facility] [place] Respitory Rate 2016-08-14 08:22:00 [facility] [place] BMI Calculated 2016-08-13 23:38:00 [facility] Weight 2016-08-13 23:38:00 [facility] [place] Height 2016-08-13 23:38:00 172.72 cm [facility] Heart Rate 2016-01-28 03:00:00 [facility] [place] Systolic (mm Hg) 2016-01-28 03:00:00 [facility] [place] Diastolic (mm Hg) 2016-01-28 03:00:00 [facility] [place] Temperature Oral (F) 2016-01-28 03:00:00 97.5 F [facility] [place] Respitory Rate 2016-01-28 03:00:00 [facility] [place] Systolic (mm Hg) 2016-01-28 00:45:00 [facility] Diastolic (mm Hg) 2016-01-28 00:45:00 [facility] [place] Respitory Rate 2016-01-28 00:45:00 [facility] [place] Temperature Oral (F) 2016-01-28 00:45:00 98.1 F [facility] [place] Heart Rate 2016-01-28 00:45:00 [facility] BMI Calculated 2016-01-27 22:43:00 [facility] Weight 2016-01-27 22:43:00 [facility] Height 2016-01-27 22:43:00 170.18 cm [facility] [place] Heart Rate 2016-01-27 22:43:00 [facility] [place] Temperature Oral (F) 2016-01-27 22:43:00 98.7 F [facility] [place] Respitory Rate 2016-01-27 22:43:00 [facility] Systolic (mm Hg) 2016-01-27 22:43:00 [facility] Diastolic (mm Hg) 2016-01-27 22:43:00 [facility] Procedures Procedure Date / Time Performing Clinician Source Performed 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:00:00 [facility] pancreas<sup>1</sup> Exploratory 2006-10-17 06:00:00 [facility] laparotomy<sup>2</sup> Leg repair<sup>3</sup> 2006-10-17 06:00:00 [facility] Preprosthodontic oral 2006-10-17 06:00:00 [facility] surgery<sup>4</sup> Procedure on upper arm 2002-10-17 06:00:00 [facility] Colonoscopy [facility] Plan of Care Planned Activity Planned Date Details Comments Source Future Scheduled 2021-05-17 INFLUENZA VACCINE [place] [facility] 00:00:00 [code = INFLUENZA VACCINE] Future Scheduled 2016 COLONOSCOPY SCREENING [place] [facility] 00:00:00 [code = COLONOSCOPY SCREENING] Future Scheduled 2016 SHINGLES VACCINES [place] [facility] 00:00:00 (#1) [code = SHINGLES VACCINES (#1)] Future Scheduled 1978 COVID-19 VACCINE (1) [place] [facility] [facility] 00:00:00 [code = COVID-19 VACCINE (1)] Encounters Start End Encounter Admission Attending Care Care Encounter Source Date/Time Date/Time Type Type Clinicians Facility Department ID 2020-05-30 [id number] 11:25:06 2020-05-14 [id number] 09:07:04 2020-11-18 2020-11-18 Outpatient E BA, [facility] [id number] [facility] 21:44:00 23:00:00 [facility] 2020-11-10 2020-11-10 Outpatient E MARCIO, [facility] [id number] [facility] 10:40:00 13:15:00 JELANI Medic al Center 2020-10-30 2020-10-31 Outpatient E CHANO, [facility] [id number] [facility] 16:50:00 19:54:00 AMADOU [facility] 2020-09-10 2020-09-10 Outpatient E FAUSTINO PROCTOR [facility] [id number] [facility] 14:11:00 16:50:00 Medica l Center 2020-07-31 2020-07-31 Outpatient Imelda, [facility] [id number] 10:00:00 10:00:00 Nadim Christopher 07 2020-07-09 2020-07-09 Outpatient [facility] [id number] 09:30:00 13:25:00 15 2020-07-09 2020-07-09 Outpatient [facility] [id number] 09:30:00 13:25:00 15 2020-07-09 2020-07-09 Outpatient [facility] [id number] [facility] 09:30:00 09:30:00 2020-07-01 2020-07-01 Outpatient Mucher, [facility] [id number] 10:15:00 10:15:00 Brown Mcgrath 2020-06-02 2020-06-03 Outpatient [facility] [id number] 09:59:09 23:59:59 03 2020-06-03 2020-06-03 Outpatient [facility] [id number] 12:00:00 12:00:00 14 2020-06-03 2020-06-03 Outpatient [facility] [id number] 12:00:00 12:00:00 14 2020-05-27 2020-05-28 Outpatient [facility] [id number] 08:58:32 23:59:59 02 2020-05-06 2020-05-07 Outpatient [facility] [id number] 15:38:41 23:59:59 00 2020-04-28 2020-04-28 Outpatient Imelda, [facility] [id number] 14:00:00 23:59:59 Nadim Christopher 03 2020-04-28 2020-04-28 Outpatient Imelda, [facility] [id number] 13:00:00 13:00:00 Nadim Christopher 02 2020-04-10 2020-04-10 Outpatient Mariah [facility] [id number] 10:14:34 15:00:00 Jenn Reeveso 2020-04-10 2020-04-10 Emergency E [facility]FB [facility]FB [id number] [facility]FB 10:14:00 10:14:00 2020-04-07 2020-04-07 Outpatient [facility] [id number] 07:50:00 12:53:00 11 2020-04-07 2020-04-07 Outpatient [facility] [id number] 07:50:00 12:53:00 11 2020-04-07 2020-04-07 Outpatient [facility] [id number] 07:50:00 07:50:00 11 2020-04-07 2020-04-07 Outpatient [facility]FB [facility]FB [id number] MHFB 07:50:00 07:50:00 2020-04-03 2020-04-03 Outpatient Imelda, [facility] [id number] 11:00:00 23:59:59 Nadim Christopher 2020-03-14 2020-03-14 Outpatient E RADHA JOYNER [facility] [id number] [facility] 20:54:00 22:10:00 Medica l Center 2019-12-18 2019-12-18 Outpatient E YOUSIF, [facility] [id number] [facility] 20:20:00 22:00:00 RIGOBERTO [facility] [place] 2019-10-07 2019-10-07 Outpatient E CARREROJOSEPHINE [facility] [id number] [facility] 21:04:00 21:50:00 [facility] [place] 2019-10-06 2019-10-07 Outpatient E CAPOCYAN, [facility] [id number] [facility] 15:54:00 13:13:00 DEION [facility] [place] 2019-06-26 2019-06-28 Outpatient Nwoha, [facility]SE MHSE [id number] 11:23:17 13:35:00 Katherin Mayfield 2019-06-26 2019-06-26 Inpatient E [facility]SE MED [id number] 13:42:00 11:23:[address] 2019-02-13 2019-02-13 Outpatient Rachana, [facility] [place] [id number] 15:00:00 15:00:00 Stephanie Shelley 00 Salvacion 2019-01-26 2019-01-29 Out[place], [place] [id number] 00:02:00 17:38:00 Katherin 09 Tran 2019-01-26 2019-01-26 Inpatient E [facility]SE MED [id number] 04:35:00 04:35:[address] [facility] 2017-08-28 2017-08-28 [place] [id number] 15:00:00 21:45:00 Ha Andrea 2016-12-27 2016-12-27 [place] [id number] 00:45:00 06:10:00 Agustin Ling 07 2016-12-26 2016-12-26 [place] [id number] 17:48:00 18:33:00 Agustin Ling 06 2016-11-21 2016-11-21 Outpatient Keene, SE [facility] [id number] 19:58:00 23:52:00 Tra Man Lopez 2016-11-12 2016-11-13 [place] [id number] 23:35:00 04:50:00 Agustin Ling 04 2016-11-03 2016-11-03 [id number] 09:36:00 15:04:00 Derick 03 Urban 2016-08-13 2016-08-14 Outpatient Gaudencio [facility] [id number] 12:44:00 17:13:00 Berna Soria 2016-01-27 2016-01-27 Outpatient Gurjit, [facility] [id number] 17:41:00 22:42:00 aLng 01 Marley Results Test Description Test Time Test Comments Results Result Comments Source SARS-CoV (RAPID ANTIGEN) WH 2020-11-10 11:39:00 Test Item Value Reference Range Interpretation Comme nts SARS-CoV (ANTIGEN) (test code = NEGATIVE NEGATIVE COVAG) COVID AG (test code = COVAGC) This test has been marketed under the FDA Emergency Use Authorization (EUA) to meet challenges of the COVID-19 pandemic. The validation standards normally enforced by the FDA and the [employer] ([employer]) are more stringent than those required for this test. Therefore, the result should be interpreted with caution and close attention to other clinical and epidemiological data TROPONIN I OW2020-11-10 11:17:00 Test Item Value Reference Range Interpretation Comments TROPONIN I (test code = A84) <0.050 ng/mL 0.000-0.050 D-DIMER TRIAGE OW2020-11-10 11:16:00 Test Item Value Reference Range Interpretation Comments D-DIMER (test code = <100 ng/mL D-DU <=599 GDDI) D-DIMER COMMENT (test *Level to rule out code = DDCOM) DVT or PE: <235 ng/mL D-DU* BRAIN NATRIURETIC PEPTIDE OW2020-11-10 11:16:00 Test Item Value Reference Range Interpretation Comments BNP (test code = OBNP) 36 pg/mL <=100 GENERAL CHEMISTRY 13 *OW* [id number] 11:14:00 Test Item Value Reference Range Interpretation Comments GLUCOSE (test code = GGUL) 320 mg/dL 73-118 H BUN (test code = GBUN) 9 mg/dL 7-22 CREATININE (test code = GCRE) 0.4 mg/dL 0.6-1.2 L URIC ACID (test code = GUA) 2.8 mg/dL 3.6-8.0 L CALCIUM (test code = GCL+) 9.4 mg/dL 8.0-10.3 ALBUMIN (test code = GALB) 3.5 g/dL 3.5-5.5 PROTEIN (test code = GTP) 7.0 g/dL 6.4-8.1 ALT (test code = GALT) 18 U/L 10-47 AST (test code = NANO) 23 U/L 11-38 ALK PHOS (test code = GALP) 91 U/L 53-128 BILI TOTAL (test code = GTBIL) 0.6 mg/dL 0.2-1.6 GGT (test code = GGGT) 41 U/L 5-65 AMYLASE (test code = GAMY) 54 U/L 14-97 CBC (INCLUDES AUTOMATED DIFFERENTIAL) *2020-11-10 10:58:00 Test Item Value Reference Range Interpretation Comments WBC (test code = WBC) 9.8 10\\S\\3/uL 4.5-11.0 RBC (test code = RBC) 4.83 10\\S\\6/uL 4.20-5.60 HGB (test code = HBG) 13.2 g/dL 14.0-18.0 L HCT (test code = HCT) 41.9 % 35.0-46.0 MCV (test code = MCV) 86.7 fL 80.0-94.0 MCH (test code = MCH) 27.3 pg 27.0-31.0 MCHC (test code = MCHC) 31.5 g/dL 32.0-36.0 L RDW (test code = RDW) 14.0 % 11.5-14.5 PLT (test code = PLT) 300 10\\S\\3/uL 130-400 MPV (test code = OMPV) 7.3 fL 6.2-10.2 NEUTROP # (test code = NE#) 6.3 10\\S\\3/uL 2.0-8.0 LYMPH # (test code = LY#) 2.5 10\\S\\3/uL 1.2-4.0 MID # (test code = GMID#) 0.9 10\\S\\3/uL 0.0-1.1 GRAN % (test code = GRA%) 64.7 % 35.0-73.0 LYMPH % (test code = GLY%) 25.7 % 20.0-55.0 MID % (test code = GMID%) 9.6 % 0.0-10.0 GLUCOMETER GLUCOSE- LAB USE [id number] 10:12:00 Test Item Value Reference Range Interpretation Comments GLUCOMETER (test code = GMG) 240 mg/dL 70-100 H [employer] 8 Panel *OW* [id number] 10:51:00 Test Item Value Reference Range Interpretation Comments GLUCOSE (test code = GGUL) 305 mg/dL 73-118 H BUN (test code = GBUN) 16 mg/dL 7-22 CREATININE (test code = GCRE) 0.6 mg/dL 0.6-1.2 CK TOTAL (test code = GCK) 48 U/L 39-380 SODIUM (test code = GNA+) 131 mmol/L 128-145 POTASSIUM (test code = GK+) 3.4 mmol/L 3.6-5.1 L CHLORIDE (test code = GCL-) 95 mmol/L 98-108 L TCO2 (test code = GTC02) 22 mmol/L 18-33 [employer] 8 Panel *OW* [id number] 05:46:00 Test Item Value Reference Range Interpretation Comments GLUCOSE (test code = GGUL) 255 mg/dL 73-118 H BUN (test code = GBUN) 15 mg/dL 7-22 CREATININE (test code = GCRE) 0.6 mg/dL 0.6-1.2 CK TOTAL (test code = GCK) 37 U/L 39-380 L SODIUM (test code = GNA+) 129 mmol/L 128-145 POTASSIUM (test code = GK+) 2.8 mmol/L 3.6-5.1 LL CHLORIDE (test code = GCL-) 96 mmol/L 98-108 L TCO2 (test code = GTC02) 20 mmol/L 18-33 GLUCOMETER GLUCOSE- LAB USE [id number] 05:11:00 Test Item Value Reference Range Interpretation Comments GLUCOMETER (test code 239 mg/dL 70-100 H CLEANE D METERMeter ID: = GMG) [id number] tor: 9186 TATUM PE NA GLUCOMETER GLUCOSE- LAB USE [id number] 05:11:00 Test Item Value Reference Range Interpretation Comments GLUCOMETER (test code 137 mg/dL 70-100 H CLEANE D METERMeter ID: = GMG) [id number] tor: 9186 TATUM PE NA GLUCOMETER GLUCOSE- LAB USE [id number] 05:07:00 Test Item Value Reference Range Interpretation Comments GLUCOMETER (test code 178 mg/dL 70-100 H CLEANE D METERMeter ID: = GMG) [id number] tor: 9186 TATUM PE NA CBC (INCLUDES AUTOMATED DIFFERENTIAL) *2020-10-31 05:03:00 Test Item Value Reference Range Interpretation Comments WBC (test code = WBC) 8.7 10\\S\\3/uL 4.5-11.0 RBC (test code = RBC) 5.61 10\\S\\6/uL 4.20-5.60 H HGB (test code = HBG) 15.7 g/dL 14.0-18.0 HCT (test code = HCT) 47.4 % 35.0-46.0 H MCV (test code = MCV) 84.5 fL 80.0-94.0 MCH (test code = MCH) 28.0 pg 27.0-31.0 MCHC (test code = MCHC) 33.1 g/dL 32.0-36.0 RDW (test code = RDW) 13.3 % 11.5-14.5 PLT (test code = PLT) 213 10\\S\\3/uL 130-400 MPV (test code = OMPV) 7.8 fL 6.2-10.2 NEUTROP # (test code = NE#) 5.9 10\\S\\3/uL 2.0-8.0 LYMPH # (test code = LY#) 2.2 10\\S\\3/uL 1.2-4.0 MID # (test code = GMID#) 0.7 10\\S\\3/uL 0.0-1.1 GRAN % (test code = GRA%) 67.5 % 35.0-73.0 LYMPH % (test code = GLY%) 25.0 % 20.0-55.0 MID % (test code = GMID%) 7.5 % 0.0-10.0 GLUCOMETER GLUCOSE- LAB USE [id number] 01:38:00 Test Item Value Reference Range Interpretation Comments GLUCOMETER (test code 227 mg/dL 70-100 H CLEANE D METERMeter ID: = GMG) [id number] tor: 9186 TATUM PE NA [employer] 8 Panel *OW* [id number] 23:53:00 Test Item Value Reference Range Interpretation Comments GLUCOSE (test code = GGUL) 136 mg/dL 73-118 H BUN (test code = GBUN) 16 mg/dL 7-22 CREATININE (test code = GCRE) 0.4 mg/dL 0.6-1.2 L CK TOTAL (test code = GCK) 40 U/L 39-380 SODIUM (test code = GNA+) 130 mmol/L 128-145 POTASSIUM (test code = GK+) 2.5 mmol/L 3.6-5.1 LL CHLORIDE (test code = GCL-) 96 mmol/L 98-108 L TCO2 (test code = GTC02) 28 mmol/L 18-33 CBC (INCLUDES AUTOMATED DIFFERENTIAL) *2020-10-30 23:44:00 Test Item Value Reference Range Interpretation Comments WBC (test code = WBC) 10.0 10\\S\\3/uL 4.5-11.0 RBC (test code = RBC) 6.15 10\\S\\6/uL 4.20-5.60 H HGB (test code = HBG) 17.3 g/dL 14.0-18.0 HCT (test code = HCT) 51.7 % 35.0-46.0 H MCV (test code = MCV) 84.1 fL 80.0-94.0 MCH (test code = MCH) 28.1 pg 27.0-31.0 MCHC (test code = MCHC) 33.5 g/dL 32.0-36.0 RDW (test code = RDW) 12.6 % 11.5-14.5 PLT (test code = PLT) 232 10\\S\\3/uL 130-400 MPV (test code = OMPV) 8.0 fL 6.2-10.2 NEUTROP # (test code = NE#) 7.0 10\\S\\3/uL 2.0-8.0 LYMPH # (test code = LY#) 2.3 10\\S\\3/uL 1.2-4.0 MID # (test code = GMID#) 0.8 10\\S\\3/uL 0.0-1.1 GRAN % (test code = GRA%) 69.9 % 35.0-73.0 LYMPH % (test code = GLY%) 22.5 % 20.0-55.0 MID % (test code = GMID%) 7.6 % 0.0-10.0 GLUCOMETER GLUCOSE- LAB USE [id number] 22:48:00 Test Item Value Reference Range Interpretation Comments GLUCOMETER (test code 166 mg/dL 70-100 H CLEANE D METERMeter ID: = GMG) [id number] tor: 9186 TATUM PE NA GLUCOMETER GLUCOSE- LAB USE [id number] 21:24:00 Test Item Value Reference Range Interpretation Comments GLUCOMETER (test code 273 mg/dL 70-100 H CLEANE D METERMeter ID: = GMG) [id number] tor: 9186 TATUM PE NA GLUCOMETER GLUCOSE- LAB USE [id number] 20:33:00 Test Item Value Reference Range Interpretation Comments GLUCOMETER (test code 257 mg/dL 70-100 H CLEANE D METERMeter ID: = GMG) [id number] tor: 9186 TATUM PE NA GLUCOMETER GLUCOSE- LAB USE [id number] 19:08:00 Test Item Value Reference Range Interpretation Comments GLUCOMETER (test code = 337 mg/dL 70-100 H Mete r ID: GMG) [id number] tor: 9186 TATUM PE NA URINALYSIS W/O [id number] 18:30:00 Test Item Value Reference Range Interpretation Comments COLOR (test code = Yellow YELLOW COLU) CLARITY (test code = Clear CLEAR CLA) GLUCOSE UR (test 2+ NEGATIVE A code = UA GLUCOSE) BILI UR (test code = 1+ NEGATIVE A BILE) KETONES UR (test 4+ NEGATIVE A code = OLIVE) SP GRAVITY (test 1.020 1.005-1.030 code = SPGR) PH UR (test code = 6.5 4.5-8.0 PH) PROTEIN UR (test 1+ NEGATIVE A code = PU) NITRITE UR (test Negative NEGATIVE code = NITRITE) UROBIL UR (test code 0.2 E.U./dL = GUROQ) UROBIL UR (test code UROBILINOGEN = GUROQC) REFERENCE RANGE 0.2 - 1.0 EU/dL BLOOD UR (test code Negative NEGATIVE = UA BLOOD) LEUK ES UR (test Negative NEGATIVE code = LEUK) TROPONIN I [id number] 18:29:00 Test Item Value Reference Range Interpretation Comments TROPONIN I (test code = A84) <0.050 ng/mL 0.000-0.050 SARS-CoV (RAPID ANTIGEN) [id number] 17:45:00 Test Item Value Reference Range Interpretation Comments SARS-CoV (ANTIGEN) NEGATIVE NEGATIVE (test code = COVAG) COVID AG (test This test has been code = COVAGC) marketed under the FDA Emergency Use Authorization (EUA) to meet challenges of the COVID-19 pandemic. The validation standards normally enforced by the FDA and the [employer] ([employer]) are more stringent than those required for this test. Therefore, the result should be interpreted with caution and close attention to other clinical and epidemiological data INFLUENZA A AND B OW2020-10-30 17:45:00 Test Item Value Reference Range Interpretation Comments INFLUENZ A (test code = INFA) NEGATIVE NEGATIVE INFLUENZ B (test code = INFB) NEGATIVE NEGATIVE BRAIN NATRIURETIC PEPTIDE OW2020-10-30 17:43:00 Test Item Value Reference Range Interpretation Comments BNP (test code = OBNP) <5 pg/mL <=100 GENERAL CHEMISTRY 13 *OW* [id number] 17:40:00 Test Item Value Reference Range Interpretation Comments GLUCOSE (test code = GGUL) 393 mg/dL 73-118 H BUN (test code = GBUN) 21 mg/dL 7-22 CREATININE (test code = GCRE) 0.7 mg/dL 0.6-1.2 URIC ACID (test code = GUA) 12.9 mg/dL 3.6-8.0 H CALCIUM (test code = GCL+) 10.1 mg/dL 8.0-10.3 ALBUMIN (test code = GALB) 4.7 g/dL 3.5-5.5 PROTEIN (test code = GTP) 7.8 g/dL 6.4-8.1 ALT (test code = GALT) 13 U/L 10-47 AST (test code = NANO) 15 U/L 11-38 ALK PHOS (test code = GALP) 85 U/L 53-128 BILI TOTAL (test code = GTBIL) 1.2 mg/dL 0.2-1.6 GGT (test code = GGGT) 74 U/L 5-65 H AMYLASE (test code = GAMY) 37 U/L 14-97 D-DIMER TRIAGE OW2020-10-30 17:39:00 Test Item Value Reference Range Interpretation Comments D-DIMER (test code = <100 ng/mL D-DU <=599 GDDI) D-DIMER COMMENT (test *Level to rule out code = DDCOM) DVT or PE: <235 ng/mL D-DU* MetyLyte 8 Panel *OW* [id number] 17:31:00 Test Item Value Reference Range Interpretation Comments GLUCOSE (test code = GGUL) 390 mg/dL 73-118 H BUN (test code = GBUN) 20 mg/dL 7-22 CREATININE (test code = GCRE) 0.4 mg/dL 0.6-1.2 L CK TOTAL (test code = GCK) 44 U/L 39-380 SODIUM (test code = GNA+) 128 mmol/L 128-145 POTASSIUM (test code = GK+) 3.1 mmol/L 3.6-5.1 L CHLORIDE (test code = GCL-) 93 mmol/L 98-108 L TCO2 (test code = GTC02) 15 mmol/L 18-33 L PROTHROMBIN TIME i-STAT OW2020-10-30 17:16:00 Test Item Value Reference Range Interpretation Comments PT (test code = 11.6 s 10.0-13.0 PT1) INR (test code = 1.0 INR) INRH (test code = SUGGESTED INRH) THERAPEUTIC RANGE FOR INR: 2.5 - 3.5 For Patients with Prosthetic Valves or Patients with recurrent Thromboembolic Events 2.0 - 3.0 For Most Other Applications CBC (INCLUDES AUTOMATED DIFFERENTIAL) *2020-10-30 17:15:00 Test Item Value Reference Range Interpretation Comments WBC (test code = WBC) 11.4 10\\S\\3/uL 4.5-11.0 H RBC (test code = RBC) 7.03 10\\S\\6/uL 4.20-5.60 H HGB (test code = HBG) 19.8 g/dL 14.0-18.0 H HCT (test code = HCT) 59.3 % 35.0-46.0 H MCV (test code = MCV) 84.4 fL 80.0-94.0 MCH (test code = MCH) 28.2 pg 27.0-31.0 MCHC (test code = MCHC) 33.4 g/dL 32.0-36.0 RDW (test code = RDW) 12.8 % 11.5-14.5 PLT (test code = PLT) 259 10\\S\\3/uL 130-400 MPV (test code = OMPV) 8.3 fL 6.2-10.2 NEUTROP # (test code = NE#) 9.3 10\\S\\3/uL 2.0-8.0 H LYMPH # (test code = LY#) 1.5 10\\S\\3/uL 1.2-4.0 MID # (test code = GMID#) 0.6 10\\S\\3/uL 0.0-1.1 GRAN % (test code = GRA%) 81.8 % 35.0-73.0 H LYMPH % (test code = GLY%) 13.2 % 20.0-55.0 L MID % (test code = GMID%) 5.0 % 0.0-10.0 TROPONIN I OW2020-09-10 16:30:00 Test Item Value Reference Range Interpretation Comments TROPONIN I (test code = A84) <0.050 ng/mL 0.000-0.050 SARS-CoV (RAPID ANTIGEN) WH2020-09-10 15:06:00 Test Item Value Reference Range Interpretation Comments SARS-CoV (ANTIGEN) NEGATIVE NEGATIVE (test code = COVAG) COVID AG (test This test has been code = COVAGC) marketed under the FDA Emergency Use Authorization (EUA) to meet challenges of the COVID-19 pandemic. The validation standards normally enforced by the FDA and the [employer] ([employer]) are more stringent than those required for this test. Therefore, the result should be interpreted with caution and close attention to other clinical and epidemiological data D-DIMER TRIAGE OW2020-09-10 15:01:00 Test Item Value Reference Range Interpretation Comments D-DIMER (test code = <100 ng/mL D-DU <=599 GDDI) D-DIMER COMMENT (test *Level to rule out code = DDCOM) DVT or PE: <235 ng/mL D-DU* MetyLyte 8 Panel *OW* [id number] 14:56:00 Test Item Value Reference Range Interpretation Comments GLUCOSE (test code = GGUL) 264 mg/dL 73-118 H BUN (test code = GBUN) 10 mg/dL 7-22 CREATININE (test code = GCRE) 0.6 mg/dL 0.6-1.2 CK TOTAL (test code = GCK) 40 U/L 39-380 SODIUM (test code = GNA+) 134 mmol/L 128-145 POTASSIUM (test code = GK+) 4.3 mmol/L 3.6-5.1 CHLORIDE (test code = GCL-) 102 mmol/L 98-108 TCO2 (test code = GTC02) 27 mmol/L 18-33 TROPONIN I OW2020-09-10 14:55:00 Test Item Value Reference Range Interpretation Comments TROPONIN I (test code = A84) <0.050 ng/mL 0.000-0.050 BRAIN NATRIURETIC PEPTIDE OW2020-09-10 14:55:00 Test Item Value Reference Range Interpretation Comments BNP (test code = OBNP) 20 pg/mL <=100 GENERAL CHEMISTRY 13 *OW* [id number] 14:43:00 Test Item Value Reference Range Interpretation Comments GLUCOSE (test code = GGUL) 263 mg/dL 73-118 H BUN (test code = GBUN) 10 mg/dL 7-22 CREATININE (test code = GCRE) 0.8 mg/dL 0.6-1.2 URIC ACID (test code = GUA) 4.9 mg/dL 3.6-8.0 CALCIUM (test code = GCL+) 10.1 mg/dL 8.0-10.3 ALBUMIN (test code = GALB) 4.2 g/dL 3.5-5.5 PROTEIN (test code = GTP) 8.1 g/dL 6.4-8.1 ALT (test code = GALT) 32 U/L 10-47 AST (test code = NANO) 24 U/L 11-38 ALK PHOS (test code = GALP) 103 U/L 53-128 BILI TOTAL (test code = GTBIL) 0.8 mg/dL 0.2-1.6 GGT (test code = GGGT) 24 U/L 5-65 AMYLASE (test code = GAMY) 39 U/L 14-97 PROTHROMBIN TIME i-STAT OW2020-09-10 14:31:00 Test Item Value Reference Range Interpretation Comments PT (test code = 14.8 s 10.0-13.0 H PT1) INR (test code = 1.2 INR) INRH (test code = SUGGESTED INRH) THERAPEUTIC RANGE FOR INR: 2.5 - 3.5 For Patients with Prosthetic Valves or Patients with recurrent Thromboembolic Events 2.0 - 3.0 For Most Other Applications CBC (INCLUDES AUTOMATED DIFFERENTIAL) *2020-09-10 14:31:00 Test Item Value Reference Range Interpretation Comments WBC (test code = WBC) 6.1 10\\S\\3/uL 4.5-11.0 RBC (test code = RBC) 6.59 10\\S\\6/uL 4.20-5.60 H HGB (test code = HBG) 19.4 g/dL 14.0-18.0 H HCT (test code = HCT) 56.8 % 35.0-46.0 H MCV (test code = MCV) 86.2 fL 80.0-94.0 MCH (test code = MCH) 29.4 pg 27.0-31.0 MCHC (test code = MCHC) 34.2 g/dL 32.0-36.0 RDW (test code = RDW) 13.3 % 11.5-14.5 PLT (test code = PLT) 239 10\\S\\3/uL 130-400 MPV (test code = OMPV) 8.1 fL 6.2-10.2 NEUTROP # (test code = NE#) 3.5 10\\S\\3/uL 2.0-8.0 LYMPH # (test code = LY#) 2.0 10\\S\\3/uL 1.2-4.0 MID # (test code = GMID#) 0.6 10\\S\\3/uL 0.0-1.1 GRAN % (test code = GRA%) 57.0 % 35.0-73.0 LYMPH % (test code = GLY%) 33.4 % 20.0-55.0 MID % (test code = GMID%) 9.6 % 0.0-10.0 CHEM [id number] 15:32:45575Pbrwanzx [facility] UJSUG6283-23-94 15:32:0013 [facility] HBMJG4932-99-64 15:32:000.81[facility] PANEL 2020-07-09 15:32:73176Nsvmtsai [facility] IVYBT4925-95-06 15:32:004.0[facility] MWMTN9256-87-89 15:32:58535Nfswkqmi [facility] MIDSK9342-22-89 15:32:0027[facility] SSNSR4749-90-64 15:32:009.5[facility] CDYLQ5227-99-48 15:32:007.3[facility] PVRAA8259-61-35 15:32:003.6 [facility] YYEWY5566-70-46 15:32:0033[facility] PANEL 2020-07-09 15:32:0018[facility] ECKVT7605-39-89 15:32:80386Pusbcpax [facility] KDXHI3249-66-23 15:32:000.2[facility] PFKAP5595-00-25 15:32:009.0[facility] [id number] 15:32:00 Test Item Value Reference Range Interpretation Comments B/C Ratio (test code = B/C Ratio) 16 1 6-25 [facility]annCHEM AGRMD1649-26-68 15:32:003.7[facility] PANEL 2020-07-09 15:32:00 Test Item Value Reference Range Interpretation Comments A/G Ratio (test code = A/G Ratio) 1.0 1 0.7-1.6 [facility]annCHE[facility] [id number] 15:32:57218Augobomg HermannIMMUNOLOGY 2020-07-07 16:27:00Not Detected *NA*(07/07/20 11:27 AM)[facility]ann[facility]MUNOLOGY 2020-05-30 13:34:00Detected 1*ABN*(05/30/20 8:34 AM)[facility] PAN[facility] 2020-04-10 17:51:71408Fdutukzp [facility]CHE[facility] JBUKT0265-93-66 17:51:0019[facility] FTHXJ6968-67-99 17:51:001.04[facility] WWXXW6938-98-98 17:51:41572Oltysgmn [facility] SFMLG4917-11-50 17:51:004.0[facility] XDXNP4597-46-22 17:51:0096[facility] QUFMP3008-89-69 17:51:0030 [facility] WDVIU1114-70-89 17:51:009.5[facility]annCHE[facility] PANEL 2020-04-10 17:51:008.2[facility] WCQAW8124-20-73 17:51:004.0[facility] BTNPV0431-21-59 17:51:0051[facility] HDWZU1708-80-96 17:51:0028[facility] YDUTL2221-94-57 17:51:47014Wslotbyw [facility] JXHYZ3051-09-09 17:51:000.4[facility] KDHDS2063-07-70 17:51:0013.0 [facility] KLKDI3177-09-67 17:51:00 Test Item Value Reference Range Interpretation Comments B/C Ratio (test code = B/C Ratio) 18 1 6-25 [facility] [id number] 17:51:004.2[facility]annCHE[facility] PANEL 2020-04-10 17:51:00 Test Item Value Reference Range Interpretation Comments A/G Ratio (test code = A/G Ratio) 1.0 1 0.7-1.6 [facility] LWWQE8559-05-23 17:51:0082[facility]annCHE[facility] PANEL 2020-04-10 17:51:0073[facility] ZrqolqqPZLWWARJBO1149-12-66 17:51:005.9[facility] XxbwqklSERURSXAJB4104-67-35 17:51:006.23[facility] HrlegvfJZUZMISOQX9051-45-48 17:51:0017.1[facility] PqepzftWYUSLWCFLM7886-34-39 17:51:0051.8[facility] OGXZAMGHCP7586-60-02 17:51:0083.1[facility] XaqeexlDFTLNPOWUJ1447-15-62 17:51:00 Test Item Value Reference Range Interpretation Comments MCH (test code = MCH) 27.4 pg 27.0-31.0 [facility] TgtvygcJEYJHYOZHX8782-27-70 17:51:0033.0[facility]annHEMATOLOGY 2020-04-10 17:51:0014.2[facility] PhssfaqPHMJXUJPSZ2535-51-23 17:51:64093Yfbttcim HuqfvtoLECCXTSRST3662-24-30 17:51:008.5[facility] BqsjaorLHNOGAWVLQ5515-86-46 17:51:0048.9[facility] YzeonipTZGWGOPVPS4188-16-81 17:51:0038.7[facility] FJQSOICKGL5619-76-38 17:51:008.2[facility] ZiycdxpPVLGVQBFJD7823-08-58 17:51:002.7 [facility] RxialgpGQSBWXBKUN8560-53-22 17:51:001.5[facility]annHEMATOLOGY 2020-04-10 17:51:002.9[facility] EutdnteZTPVXWNXZZ5595-12-16 17:51:002.3[facility] ZekstfaTAKAQZKXWF6052-66-02 17:51:000.5[facility] FevnfnnSIZAYJWPFA9990-71-32 17:51:000.2[facility] EgasacyLGZJIGOMXK2422-67-25 17:51:000.1[facility] AND YPPGB3078-17-12 17:51:00Light Yellow *NA*(04/10/20 12:51 PM)[facility] URINE AND LHIBY3269-01-36 17:51:00Clear (04/10/20 12:51 PM)[facility] [id number] 17:51:00 Test Item Value Reference Range Interpretation Comments UA Spec Grav (test code = UA Spec 1.024 1 Grav) [facility] SHGPW6320-06-54 17:51:00 Test Item Value Reference Range Interpretation Comments UA pH (test code = UA pH) 6.0 1 5.0-8.0 [facility] [id number] 17:51:00Negative (6/25/20 12:51 PM) [facility] OUZSI7049-94-00 17:51:00Negative *NA*(04/10/20 12:51 PM)[facility] TTJPH2348-92-22 17:51:00Negative (04/10/20 12:51 PM) [facility] YTAXH2184-89-32 17:51:00Negative (04/10/20 12:51 PM) [facility] VTTVL5772-04-88 17:51:00Negative (04/10/20 12:51 PM) [facility] BUAET5905-70-63 17:51:00None Seen (04/10/20 12:51 PM) [facility] CXAMY2838-94-05 17:51:001[facility] ICETI2223-18-58 17:51:001[facility] IrvzxqiLSTWAFCGKHSX2056-14-86 13:53:79259 [facility] VbfqlwaLBRYBPLTAMZV9460-13-76 13:53:004.2[facility] HermannELECTROLYTES 2020-04-07 13:53:0094[facility] TmfotsyAHNBVOWVWOWG2178-33-05 13:53:0027[facility] BipnusgHIIHWHECULLY9488-01-99 13:53:0017[facility] SdpzlzcYVRIDZTAYOVT7486-19-22 13:53:000.6[facility] UhaahztLMQGANEWIUWT6557-71-63 13:53:53732Jgtixlta [place] YHBZGBUYQQEO6028-12-13 13:53:001.31[facility] UyuywesPSXLRKRMTFKF7673-97-37 13:53:0017.0[facility] TvpcvieYUTENMEEJQUI6664-42-15 13:53:0050.0[facility] FGMPPNJPYWNQ8705-83-63 13:53:0018.0[facility] LtotrajBZSNEDKJLXLI0324-70-65 13:53:42725Zzgbfvrk OhdvllvCMSMQJKFDQMB5133-91-42 13:53:00See Note *NA*(04/07/20 8:53 AM)[facility] GrlpevyMRKHFNGAXX0844-12-64 16:43:00Not Detected (04/04/20 11:43 AM)[facility]annURINAL[facility] W/O MICROSCOPICOW2020-03-14 21:03:00 Test Item Value Reference Range Interpretation Comments COLOR (test code = YELLOW YELLOW COLU) CLARITY (test code = CLEAR CLEAR CLA) GLUCOSE UR (test 2+ NEGATIVE A code = UA GLUCOSE) BILI UR (test code = NEGATIVE NEGATIVE BILE) KETONES UR (test TRACE NEGATIVE A code = OLIVE) SP GRAVITY (test 1.015 1.005-1.030 code = SPGR) PH UR (test code = 5.5 4.5-8.0 PH) PROTEIN UR (test NEGATIVE NEGATIVE code = PU) NITRITE UR (test NEGATIVE NEGATIVE code = NITRITE) UROBIL UR (test code 0.2 E.U./dL = GUROQ) UROBIL UR (test code UROBILINOGEN = GUROQC) REFERENCE RANGE 0.2 - 1.0 EU/dL BLOOD UR (test code NEGATIVE NEGATIVE = UA BLOOD) LEUK ES UR (test NEGATIVE NEGATIVE code = LEUK) BRAIN NATRIURETIC PROTEIN OW2019-10-07 21:39:00 Test Item Value Reference Range Interpretation Comments BNP (test code = OBNP) 20 pg/mL <=100 XR CHEST 1 VIEW PORTABLE *OW*2019-10-07 21:37:16LOCATION: H43 EXAM: XR CHEST 1 VIEW PORTABLE *OW*HISTORY: [id number]: Chest pain TECHNIQUE: Frontal view of the chest.COMPARISON: 10/06/2019FINDINGS:The lungs are well inflated. There is interstitial coarsening throughout bothlungs which is new compared to prior, likely representing interstitial edema.No evidence of pneumothorax or pleural effusion. The heart is normal in size. The mediastinal contours are unremarkable. Osseous structures are intact. IMPRESSION:Interstitial coarsening throughout both lungs which is new compared to prior,likely representing interstitial edemaTROPONIN I OW2019-10-07 21:35:00 Test Item Value Reference Range Interpretation Comments TROPONIN I (test code = A84) 0.010 ng/mL 0.000-0.045 CARDIAC [id number] 06:36:00 Test Item Value Reference Range Interpretation Comments TROPONIN I (test code = A84) <0.015 ng/mL 0.000-0.045 BASIC METABOLIC [id number] 06:32:00 Test Item Value Reference Range Interpretation Comments GLUCOSE (test code = 06D) 151 mg/dL 75-100 H SODIUM (test code = 01A) 140 mmol/L 136-145 POTASSIUM (test code = 01B) 3.8 mmol/L 3.6-5.1 CHLORIDE (test code = 04A) 104 mmol/L 98-107 CO2 (test code = 02A) 31 mmol/L 22-32 ANION GAP (test code = ANG) 8.8 mmol/L BUN (test code = 05D) 10 mg/dL 7-18 CREATININE (test code = 03E) 0.7 mg/dL 0.7-1.3 BUN/CREA (test code = BCR) 13 12-20 CALCIUM (test code = 09D) 8.3 mg/dL 8.3-9.5 CBC (INCLUDES AUTOMATED DIFFERENTIAL)2019-10-07 06:17:00 Test Item Value Reference Range Interpretation Comments WBC (test code = WBC) 7.1 10\\S\\3/uL 4.5-11.0 RBC (test code = RBC) 5.00 10\\S\\6/uL 4.20-5.60 HGB (test code = HBG) 14.3 g/dL 14.0-18.0 HCT (test code = HCT) 42.0 % 35.0-46.0 MCV (test code = MCV) 84.0 fL 80.0-94.0 MCH (test code = MCH) 28.6 pg 27.0-31.0 MCHC (test code = MCHC) 34.0 g/dL 32.0-36.0 RDW (test code = RDW) 13.1 % 11.5-14.5 PLT (test code = PLT) 224 10\\S\\3/uL 130-400 MPV (test code = MPV) 9.7 fL 9.4-12.4 NEUTROP # (test code = NE#) 2.6 10\\S\\3/uL 2.0-8.0 LYMPH # (test code = LY#) 3.6 10\\S\\3/uL 1.2-4.0 MONOCYTE # (test code = MO#) 0.6 10\\S\\3/uL 0.0-1.1 EOSINOPH # (test code = EO#) 0.2 10\\S\\3/uL 0.0-0.7 BASOPHIL # (test code = BA#) 0.1 10\\S\\3/uL 0.0-0.3 IG # (test code = IG#) 0.03 10\\S\\3/uL 0.00-0.06 NRBC # (test code = NRBC#) 0.00 10\\S\\3/uL 0.00-0.01 NEUTROPH % (test code = NE%) 37.2 % 35.0-73.0 LYMPH % (test code = LY%) 50.1 % 20.0-55.0 MONO % (test code = MO%) 8.5 % 2.5-10.0 EOSINOPH % (test code = EO%) 2.8 % 0.0-5.0 BASOPHIL % (test code = BA%) 1.0 % 0.0-2.0 IG % (test code = IG%) 0.4 % 0.0-0.8 NRBC% (test code = NRBC%) 0.0 % 0.0-0.2 MANDIFF (test code = MDIFF) NO NO RBC MORPH (test code = RBCMOR) NORMAL D-DIMER TRIAGE OW2019-10-06 15:44:00 Test Item Value Reference Range Interpretation Comments D-DIMER (test code = <100 ng/mL D-DU <=599 GDDI) D-DIMER COMMENT (test *Level to rule out code = DDCOM) DVT or PE: <235 ng/mL D-DU* MetyLyte 8 Panel *OW* [id number] 15:18:00 Test Item Value Reference Range Interpretation Comments GLUCOSE (test code = GGUL) 142 mg/dL 73-118 H BUN (test code = GBUN) 8 mg/dL 7-22 CREATININE (test code = GCRE) 0.8 mg/dL 0.6-1.2 CK TOTAL (test code = GCK) 194 U/L 39-380 SODIUM (test code = GNA+) 145 mmol/L 128-145 POTASSIUM (test code = GK+) 3.7 mmol/L 3.6-5.1 CHLORIDE (test code = GCL-) 108 mmol/L 98-108 TCO2 (test code = GTC02) 27 mmol/L 18-33 TROPONIN I OW2019-10-06 15:14:00 Test Item Value Reference Range Interpretation Comments TROPONIN I (test code = A84) <0.050 ng/mL 0.000-0.050 BRAIN NATRIURETIC PROTEIN OW2019-10-06 15:14:00 Test Item Value Reference Range Interpretation Comments BNP (test code = OBNP) 20 pg/mL <=100 XR CHEST 1 VIEW PORTABLE *OW*2019-10-06 15:13:56Chest one view AP 10/06/2019 3:13 PMCLINICAL HISTORY: Chest painCOMPARISON: None availableFINDINGS:The lungs are clear. Cardiomediastinal contours are within normal limits. Thecentral pulmonary vasculature is not engorged. IMPRESSION:Unremarkable frontal chest radiograph.CBC (INCLUDES AUTOMATED DIFFERENTIAL) *2019-10-06 15:05:00 Test Item Value Reference Range Interpretation Comments WBC (test code = WBC) 6.0 10\\S\\3/uL 4.5-11.0 RBC (test code = RBC) 5.07 10\\S\\6/uL 4.20-5.60 HGB (test code = HBG) 14.6 g/dL 14.0-18.0 HCT (test code = HCT) 45.5 % 35.0-46.0 MCV (test code = MCV) 89.8 fL 80.0-94.0 MCH (test code = MCH) 28.8 pg 27.0-31.0 MCHC (test code = MCHC) 32.1 g/dL 32.0-36.0 RDW (test code = RDW) 14.4 % 11.5-14.5 PLT (test code = PLT) 231 10\\S\\3/uL 130-400 MPV (test code = OMPV) 8.3 fL 6.2-10.2 NEUTROP # (test code = NE#) 3.2 10\\S\\3/uL 2.0-8.0 LYMPH # (test code = LY#) 2.3 10\\S\\3/uL 1.2-4.0 MID # (test code = GMID#) 0.5 10\\S\\3/uL 0.0-1.1 GRA % (test code = GRA%) 54.1 % 35.0-73.0 LYMPH % (test code = GLY%) 38.0 % 20.0-55.0 MID % (test code = GMID%) 7.9 % 0.0-10.0 CHEM [id number] 16:36:96737Pmsktzcl [facility]CHE[facility] JYUPZ0571-24-75 16:36:0023 [facility]annCHE[facility] MLGPB3020-93-76 16:36:000.82[facility]annCHEM PANEL 2019-06-28 16:36:84754Mnkicken [facility]CHE[facility] FUAKR7863-23-74 16:36:004.3[facility]annCHEM KSSJU6842-30-95 16:36:60965Hlbyqsgh [facility]annCHE[facility] HHTHA7566-71-25 16:36:0029[facility]annCHE[facility] DGPBX1107-96-43 16:36:009.1[facility]annCHEM MHIHV9188-48-24 16:36:07915Ehffuqms [facility] XJQUT5352-11-50 16:36:0010.3 [facility]annCHE[facility] EACWA1005-71-65 16:36:00<0.05[facility]annHEMATOLOGY 2019-06-28 16:36:0014.8[facility] DlkyhrgOBBYLQYKAS7076-32-28 16:36:005.07[facility] MqhlyekGHPFNSGZWW5109-64-56 16:36:0014.7[facility] FcsgkruWJCBFPHIJS1048-90-39 16:36:0044.2[facility] OqjltvxSDOSUAYKKM4515-77-61 16:36:0087.1[facility] ZQCKSEEOKU7095-40-07 16:36:00 Test Item Value Reference Range Interpretation Comments MCH (test code = MCH) 29.0 pg 27.0-31.0 [facility] YukswczZPRODYCHDA1402-24-51 16:36:0033.4[facility]annHEMATOLOGY 2019-06-28 16:36:0014.9[facility] QsveiihNLFKVZSJRA8760-71-83 16:36:57628Zuhqrqfa GowyoyjFGWFNAVFMH1312-04-52 16:36:008.8[facility] BbzzksbVCYUBMAGUB5224-61-54 10:38:0013.5[facility] ZxxhywyVAFHRZQUGB8350-70-36 10:38:005.00[facility] EYGBETSPZF7439-87-61 10:38:0014.6[facility] XqngszsXNJHEQQLDG0695-69-74 10:38:00 43.8[facility] RgjsykbLDYTJKQTWD4201-60-72 10:38:0087.5[facility]annHEMATOLOGY 2019-06-28 10:38:00 Test Item Value Reference Range Interpretation Comments MCH (test code = MCH) 29.2 pg 27.0-31.0 [facility] LimmfgzCCBNDCZBGD3817-09-82 10:38:0033.4[facility]annHEMATOLOGY 2019-06-28 10:38:0014.8[facility] JgdgspbXAEQAACCBS4112-17-58 10:38:62623Eltrmysk HyctqmlCSCUONAOZV7121-84-53 10:38:008.9[facility]annCHEM DSNMS9830-75-85 08:45:71002Vhejxvtd [facility]annCHEM KPBQX1965-21-11 08:45:0019[facility]annCHEM EUTDJ5701-90-94 08:45:000.77[facility]annCHE[facility] LXHUU4739-81-13 08:45:11237 [facility]annCHE[facility] PDADY8475-22-12 08:45:004.3[facility]annCHEM PANEL 2019-06-27 08:45:02952Ojsaylqd HermannCHEM SPKQX5245-56-74 08:45:0028[facility]annCHEM ILQKK1197-71-96 08:45:0011.3[facility]annCHEM NJALK4264-75-82 08:45:008.6[facility]annCHEM JHUTK2569-42-72 08:45:77401Bnfytaqt HermannCHEM KARUC2115-15-97 08:45:002.4[facility] VvtrpnpMBFWDBJQGH8942-20-15 08:45:0011.3 [facility] WyvxclhKJRDWDYIMY6396-80-67 08:45:005.05[facility]annHEMATOLOGY 2019-06-27 08:45:0014.9[facility] RnrhynlQDAPVLMAVY8000-16-74 08:45:0044.1[facility] VpgkczmPTNCBNGIWW2430-03-65 08:45:0087.4[facility] MxyxsxaUFQPMUNXXT9126-27-50 08:45:00 Test Item Value Reference Range Interpretation Comments MCH (test code = MCH) 29.4 pg 27.0-31.0 [facility] PpfmpjyGCLEQUAVGO1103-86-69 08:45:0033.7[facility]annHEMATOLOGY 2019-06-27 08:45:0014.9[facility] VnwfkffEIQEDFDIZC4865-51-33 08:45:83464Pcuuogqb WslbghsSZMIZFJFCA7760-27-36 08:45:009.2[facility]annCHEM JIRHZ7393-87-53 05:10:005.4[facility] HermannCARDIAC POSECLP9635-81-10 02:22:00<0.02[facility]annCHEM KNQSL1009-37-20 02:22:004.5[facility]annCARDIAC QTRKQNN3675-52-24 22:30:00<0.02[facility]annCHEM WHNUC7562-17-71 22:30:00<0.05[facility]annURINE AND DZGRF5114-15-93 17:07:00Yellow *NA*(06/26/19 12:07 PM)[facility] QHVFV4079-02-51 17:07:00Marked *ABN*(06/26/19 12:07 PM)[facility] ZPDUV8717-92-03 17:07:00 Test Item Value Reference Range Interpretation Comments UA Spec Grav (test code = UA Spec 1.024 1 Grav) [facility] UUQTF6286-24-25 17:07:00 Test Item Value Reference Range Interpretation Comments UA pH (test code = UA pH) 5.0 1 5.0-8.0 [facility] NZAQO3028-74-30 17:07:00Negative *NA*(06/26/19 12:07 PM)[facility] EGTAI4583-47-97 17:07:00Negative (06/26/19 12:07 PM) [facility] PFEVQ6074-45-15 17:07:00Negative (06/26/19 12:07 PM) [facility] HOTBR0639-74-96 17:07:00Negative (06/26/19 12:07 PM) [facility] JZYFC7100-42-91 17:07:004[facility] NUQGW1119-21-02 17:07:006[facility] IITHZ3868-93-99 17:07:004 [facility]annCARDIAC CHAOQZJ6619-61-63 16:36:00<0.02[facility] CARDIAC ITINYWL4363-95-21 16:36:34957Amwordzr HermannCHEM OLIMG5337-25-88 16:36:87685Jgslgucv HermannCHEM HNKKJ7615-47-96 16:36:007[facility]annCHEM ZPZUY5774-94-99 16:36:000.86[facility]annCHEM HEZKN5757-21-45 16:36:50824 [facility]CHE[facility] MOCXC3261-72-67 16:36:004.5[facility]annCHEM PANEL 2019-06-26 16:36:07800Emlpldsl HermannCHEM LTVZL5570-30-81 16:36:0028[facility]annCHEM XDIQZ5640-52-85 16:36:009.1[facility]annCHEM NPMVR6427-71-99 16:36:007.4[facility]annCHEM ZIHBX6595-94-18 16:36:003.5[facility]annCHEM VGUSJ3652-54-04 16:36:0067[facility]annCHEM HPDJU2611-84-16 16:36:0038 [facility]annCHE[facility] RKCJQ6618-31-38 16:36:0089[facility]annCHEM PANEL 2019-06-26 16:36:000.2[facility]annCHEM IRDBM9338-94-36 16:36:20133Tnwznukn HermannCHEM VOXGQ3936-31-90 16:36:0011.5[facility]annCHEM VOCAQ1006-37-26 16:36:00 Test Item Value Reference Range Interpretation Comments B/C Ratio (test code = B/C Ratio) 8 1 6-25 [facility]annCHE[facility] DGMWD7797-13-68 16:36:003.9[facility]annCHEM PANEL 2019-06-26 16:36:00 Test Item Value Reference Range Interpretation Comments A/G Ratio (test code = A/G Ratio) 0.9 1 0.7-1.6 [facility] KffarctISHJBCLZVR9743-55-20 16:36:00 Test Item Value Reference Range Interpretation Comments PT (test code = PT) 11.5 s 12.0-14.7 [facility] VagczdnHCWUHERTEY6148-90-04 16:36:00 Test Item Value Reference Range Interpretation Comments INR (test code = INR) 0.85 1 0.85-1.17 [facility] RqgfoyoEOLIEORXYI3738-57-36 16:36:00 Test Item Value Reference Range Interpretation Comments PTT (test code = PTT) 27.4 s 22.9-35.8 [facility] RhwytguKXSBPHOLEM8780-98-51 16:36:0064.8[facility] HermannHEMATOLOGY 2019-06-26 16:36:0026.1[facility] PlkcsamMZXHMIKLLD2120-60-80 16:36:007.2[facility] VoesazvQFYXTGWIIL1926-33-32 16:36:001.1[facility] RcoutliXGSQJZXQRW6720-70-37 16:36:000.8[facility] AnmwtssOREHXYNARK0487-43-36 16:36:006.6[facility] Nayan FVPQWJTBER0505-60-90 16:36:002.7[facility] YiszidvHSZKTLKNZJ5640-86-43 16:36:000.7 [facility] KlqjhamREKCGCXSZZ0608-48-06 16:36:000.1[facility]annHEMATOLOGY 2019-06-26 16:36:000.1[facility]annCHEM OPQML5106-29-96 11:13:0098[facility]annCHEM HIAPE6051-75-51 11:13:0014[facility]annCHEM DFXUI5885-99-85 11:13:0037[facility]annCHEM JVTJR5769-07-32 11:13:000.4[facility]annCHEM NAUAM2363-22-47 11:13:0088[facility]annCHEM UYDBF4699-96-23 11:13:003.3 [facility] TXAJX8406-82-90 11:13:15430Xbogretx HermannCHEM PANEL 2019-01-27 11:13:000.89[facility]annCHEM ZBTIA7699-80-81 11:13:0015[facility]annCHEM QWZOS3832-24-89 11:13:006.6[facility]annCHEM PEKZE5232-39-70 11:13:0026[facility]annCHEM GCZVL4601-86-46 11:13:009.1[facility] HermannCHEM VCKUL4504-09-33 11:13:89366Evinzbex HermannCHEM BCPPL2925-57-66 11:13:004.1 [facility]CHE[facility] YRZCQ7853-00-20 11:13:05382Ckdonxkj HermannCHEM PANEL 2019-01-27 11:13:00 Test Item Value Reference Range Interpretation Comments B/C Ratio (test code = B/C Ratio) 17 1 6-25 [facility]2019-04-13 11:13:0013.1[facility] 2019-01-27 11:13:00 Test Item Value Reference Range Interpretation Comments A/G Ratio (test code = A/G Ratio) 1.0 1 0.7-1.6 [facility]2019-04-13 11:13:003.3[facility] 2019-01-27 11:13:00 Test Item Value Reference Range Interpretation Comments PTT (test code = PTT) 26.8 s 22.9-35.8 [facility]GqfeimmZEBGTGGFHP3761-05-81 11:13:00 Test Item Value Reference Range Interpretation Comments PT (test code = PT) 12.7 s 12.0-14.7 [facility]JpmzvtoKNMJMDZDSN5067-73-86 11:13:00 Test Item Value Reference Range Interpretation Comments INR (test code = INR) 0.97 1 0.85-1.17 [facility] RegionYdsizubYAQLUINAOE5786-41-09 11:13:008.1[facility] CentralHE[facility]OLOG[facility] 2019-01-27 11:13:002.9[facility] TpdvkabHSRSVTMIIS0577-21-69 11:13:000.7[facility] GtdsrzwKUIBWGPBCV6058-69-91 11:13:000.1[facility] NrrbxniHNUHEKNHQO5766-61-86 11:13:006.1[facility] TygjgijVCVFYVYCTL9204-64-06 11:13:000.1[facility] DZKILUMRZW7557-02-68 11:13:000.4[facility] ClhztofVERJQXXLAJ4092-80-75 11:13:00 68.7[facility] KpfzxpfWLAOHXLXGO8960-81-90 11:13:0024.7[facility] HermannHEMATOLOGY 2019-01-27 11:13:0011.8[facility] XtjdwxnJGZVRZYQAB2486-31-55 11:13:005.21[facility] NjxgnphOMJHCZMKYH4451-39-33 11:13:0015.0[facility] PaflcmkZQWDUBWFCR0143-54-77 11:13:0045.0[facility] NuhhsyfISADZCQPXD3867-12-92 11:13:0086.5[facility] QFYGAJSBJL0973-25-77 11:13:00 Test Item Value Reference Range Interpretation Comments MCH (test code = MCH) 28.7 pg 27.0-31.0 [facility] DqfylofZOGANTIAZE6473-04-04 11:13:0033.2[facility] HermannHEMATOLOGY 2019-01-27 11:13:0014.1[facility] KnghgxaSBOHWTGTUI6473-50-52 11:13:94185Shldezvx ApzffuuWDSDSIPSVM2883-98-11 11:13:008.6[facility]annURINE AND EWPCX5801-59-58 20:56:00Negative *NA*(01/26/19 3:56 PM)[facility] AYHME4161-29-07 20:56:00Negative (01/26/19 3:56 PM)[facility] BTJYJ5390-49-52 20:56:00Negative (01/26/19 3:56 PM)[facility] GKIWX5814-41-14 20:56:00Negative (01/26/19 3:56 PM)[facility] HJNKP5076-44-54 20:56:00Negative (01/26/19 3:56 PM)[facility] BBLNI7713-04-97 20:56:00 Test Item Value Reference Range Interpretation Comments UA pH (test code = UA pH) 7.0 1 5.0-8.0 [facility] UNQJG3587-09-14 20:56:00 Test Item Value Reference Range Interpretation Comments UA Spec Grav (test code = UA Spec 1.026 1 Grav) [facility] AND VDRTP6961-35-26 20:56:00Clear (01/26/19 3:56 PM) [facility] HermannCARDIAC BKPOHXC6665-22-98 19:28:00<0.02[facility] STCDHWQIXE3440-18-87 14:30:0013[facility] HermannCHEM ZFPTP6495-64-05 14:22:002.8 [facility]annCARDIAC TVRKAXF9435-02-15 11:46:00<0.02[facility] CARDIAC GXCDENO9480-64-72 11:46:0031[facility] HermannCHEM QLBGI3726-08-21 11:46:002.3[facility] HermannCHEM ZNHYO8506-14-16 11:46:001.5[facility] HermannCHEM MYOCN6156-88-90 11:46:003.5[facility] HermannDRUG XEEYMM5751-46-17 10:08:00See Note (01/26/19 5:08 AM)[facility]annDRUG HPIBTX8657-56-82 10:08:00Negative *NA*(01/26/19 5:08 AM)[facility] HermannDRUG LOZSDA6283-57-84 10:08:00Positive *ABN*(01/26/19 5:08 AM)[facility]annDR[facility] EKTMVR7781-09-59 10:08:00Positive *ABN*(01/26/19 5:08 AM)[facility]annDR[facility] AIDDPA2031-72-12 10:08:00Negative *NA*(01/26/19 5:08 AM)[facility]annDR[facility] LPKONM7235-59-38 10:08:00Negative *NA*(01/26/19 5:08 AM)[facility]annDRUG ZIKCHK4979-41-53 10:08:00Negative *NA*(01/26/19 5:08 AM)[facility]annDR[facility] YRLPDP0061-50-84 10:08:00Negative *NA*(01/26/19 5:08 AM)[facility] HermannCHEM FYICF0175-02-13 08:53:002.5[facility] HermannCARDIAC RORLBON7204-33-55 06:13:0035[facility] HermannCARDIAC ENZYMES 2019-01-26 06:13:00<0.02[facility] HermannCHEM EUNMC8278-96-75 06:13:008.8 [facility] HermannCHEM LUDYE6538-93-71 06:13:75034Svbozrlh HermannCHEM PANEL 2019-01-26 06:13:003.8[facility] HermannCHEM EFJYI6794-20-84 06:13:0026[facility] HermannCHEM HTMNP9911-40-70 06:13:51446Yvspalkg HermannCHEM STRSM3879-93-69 06:13:09838Tleimvgq HermannCHEM CBWMK4536-42-44 06:13:000.84[facility] HermannCHEM VFXVT2326-44-54 06:13:007[facility] HermannCHEM YMNAE2351-89-91 06:13:40528 [facility] HermannCHEM OVTQR1384-13-09 06:13:0011.8[facility] HermannHEMATOLOGY 2019-01-26 06:13:0048.6[facility] FrpzssnIEJTXGKFGO7970-68-96 06:13:000.9[facility] TahoxipBPNDXDLQJQ8637-72-52 06:13:0040.0[facility] GebvszbKBOLGVXESL0240-37-99 06:13:002.1[facility] TmtmchuPPJIYZDVXG9092-05-21 06:13:008.4[facility] LLPGGYQJHV7552-49-74 06:13:000.2[facility] NotaeenWHHTSVUGAT5075-27-00 06:13:000.7 [facility] XkesbarYOZXPFBCJX4181-86-86 06:13:000.1[facility] HermannHEMATOLOGY 2019-01-26 06:13:003.5[facility] EsrgeqsFBVDZIVGSQ6210-77-29 06:13:004.2[facility] TyjgjqxMASHMQVMXX2959-05-15 06:13:008.4[facility] UrhjsjxINCTLWKPXH2233-29-73 06:13:0086.8[facility] CezydnkJAACLHRUOG3091-10-15 06:13:0047.3[facility] DZQVTLFPQA2852-43-52 06:13:00 Test Item Value Reference Range Interpretation Comments MCH (test code = MCH) 29.0 pg 27.0-31.0 [facility] MsitxkjYBWRWWJBEU3003-31-77 06:13:005.44[facility] HermannHEMATOLOGY 2019-01-26 06:13:0015.8[facility] LzeyxlkPEYFPXQFHX4493-07-40 06:13:0014.3[facility] DeerzpaBUWTNREHQL9007-28-45 06:13:0033.4[facility] TxdjaimHPIUIGPPQC3858-99-59 06:13:03921Xeselelf KlilmygLZXVRUUYUJ0739-15-64 06:13:008.7[facility] HermannVIRAL - ZFKZMZMR8706-80-27 06:13:00Negative (01/26/19 1:13 AM)[facility] HermannVIRAL - KKFKALEQ2945-89-45 06:13:00Negative (01/26/19 1:13 AM)[facility] HermannCARDIAC WYXDVCN6190-73-37 21:36:00<0.02[facility] HermannCARDIAC BTXQEYA6809-21-97 21:36:007[facility] HermannCHEM BUTYU5694-64-61 21:36:90549Oprvoklk HermannCHEM WKCSB4730-48-70 21:36:0013[facility] HermannCHEM DLFTS6244-46-97 21:36:0010.9 [facility] HermannCHEM AGTMS7703-35-05 21:36:001.0[facility] HermannCHEM PANEL 2017-08-28 21:36:003.7[facility] HermannCHEM PCIRR6869-55-83 21:36:65419Itczintn HermannCHEM FJPPQ9502-70-77 21:36:000.3[facility] HermannCHEM UCQDJ7005-00-19 21:36:42335Kfiyxqbv HermannCHEM AXVDL6409-44-49 21:36:0033[facility] HermannCHEM MXJAV4041-95-97 21:36:0014[facility] HermannCHEM QUCGX3707-37-39 21:36:003.6 [facility] HermannCHEM JHINZ0630-65-22 21:36:007.3[facility] HermannCHEM PANEL 2017-08-28 21:36:009.1[facility] HermannCHEM CBBGN1469-11-91 21:36:57296Coyercxr HermannCHEM WUGNA5752-49-56 21:36:0011[facility] HermannCHEM CUATG2667-78-15 21:36:000.82[facility] HermannCHEM EBJUU9930-22-36 21:36:0032[facility] HermannCHEM DPXAZ7835-10-78 21:36:0098[facility] HermannCHEM NQLBO6852-13-35 21:36:003.9 [facility] HermannCHEM PYJOK0107-12-71 21:36:87233Dsxfwncn HermannHEMATOLOGY 2017-08-28 21:36:0083.7[facility] ZbexcnqYCAXYSFIPR2686-76-36 21:36:0045.5[facility] PkhkwsoNDCFMRICKD6537-15-83 21:36:0014.4[facility] GhawingCIWDMXDZVL8004-42-81 21:36:0033.2[facility] EbvhyrvWLEMTKOIEY6851-79-68 21:36:00 Test Item Value Reference Range Interpretation Comments MCH (test code = MCH) 27.8 pg 27.0-31.0 [facility] UalqxoaAPUAHJFXCJ3870-38-24 21:36:00101Qiiezdtl HermannHEMATOLOGY 2017-08-28 21:36:008.2[facility] UrjedpdNORUWUDENO1209-91-66 21:36:006.8[facility] DcamqwdCSIHHTSWBV4864-74-94 21:36:005.44[facility] YubxtvbGTOZZRAIWC5245-75-21 21:36:0015.1[facility] UufsbrnPHMGFYGYKG2335-08-37 21:36:000.4[facility] XRZBYPETAP3796-10-03 21:36:000.8[facility] KimxlvbDGKUVXNKOL8862-58-31 21:36:003.2 [facility] KggvtptVEKKDGDTXR8751-59-13 21:36:000.1[facility] HermannHEMATOLOGY 2017-08-28 21:36:0036.0[facility] XgovruyMEIIIRHLZB1268-03-88 21:36:002.5[facility] NbwmeeuBCOYMXRDUG4158-33-64 21:36:001.2[facility] HmedwzhUPSHGMDVZM7620-83-63 21:36:005.3[facility] JraiovzPMMRLZVTOB3937-60-05 21:36:0011.1[facility] WFKWUDDPOY4049-05-05 21:36:0046.4[facility] HermannCARDIAC XWPDIIU9761-56-79 09:51:005[facility] PlbmhggLXNTFABZOKQA7366-83-27 09:51:0013.8[facility] NYMKFMTCUSAO7968-84-26 09:51:0091[facility] UouwhgbYKLDHEVVGWVC9880-52-58 09:51:00 3.8[facility] KbisqbnVEGQLNEWDPCD6503-27-13 09:51:97752Syajucte Nayan XPKJWFMVDISO0281-72-68 09:51:0028[facility] PxidbmxPMXGNWIATOFS6524-15-72 09:51:00 8.8[facility] YbrabskXUUDFZBZBLTP4776-76-12 09:51:0097[facility] HermannELECTROLYTES 2016-12-27 09:51:000.97[facility] EloangoWNIHBKGEMPAW3098-95-57 09:51:0011[facility] ChroppcHROLNUAJEJMW1423-35-94 09:51:60938Faivfifd LclgdcpZQCOUCZPDA9914-58-92 09:51:000.1[facility] XtvgowfYCZUFJNLEC9899-24-52 09:51:000.1[facility] YAPRLOTIGK0160-66-34 09:51:000.9[facility] XqjzommKAXKRPKTDB1751-48-66 09:51:004.7 [facility] PhxpznxXDBHGFJWUR7507-89-03 09:51:001.1[facility] HermannHEMATOLOGY 2016-12-27 09:51:001.0[facility] TygrmtpBNRCGLFRWF6952-09-55 09:51:000.8[facility] QidzvzvFINXHSEJXK5134-30-47 09:51:0071.5[facility] NdikmpxIKUNBUYPPG1774-64-17 09:51:0014.8[facility] SzbabhhOMMASMWKIA7571-26-77 09:51:0011.7[facility] FZMRYJCLML5141-61-14 09:51:008.0[facility] KxdagqaXHHRLYIMMY0105-16-85 09:51:48860 [facility] KxvdbmsCGWGMCOEUQ7730-72-79 09:51:00 Test Item Value Reference Range Interpretation Comments MCH (test code = MCH) 26.9 pg 27.0-31.0 [facility] UidlnkbXARSDUWZEM3203-27-63 09:51:0014.5[facility] HermannHEMATOLOGY 2016-12-27 09:51:0033.4[facility] WclqmgaUSFBFKRVML2268-87-15 09:51:0015.4[facility] UpntbavMPTDWKHEXZ1243-40-12 09:51:0046.1[facility] ZcwunycNUZWIYAVGO3606-30-95 09:51:0080.5[facility] LhqfitcJSXGKXNVNP5616-38-72 09:51:006.5[facility] GPMKJAUZKW3099-12-43 09:51:005.73[facility] HermannCARDIAC AVPUAKW3367-41-02 07:57:00<0.02[facility] HermannCHEM DXETK3748-40-28 02:57:0088[facility] CHEM PKPXC3670-52-80 02:57:004.1[facility] HermannCHEM AREFL8714-03-47 02:57:04333 [facility] HermannCHEM JJTIM6261-36-38 02:57:001.00[facility] HermannCHEM PANEL 2016-11-22 02:57:0027[facility] HermannCHEM DJHBF2938-08-39 02:57:0097[facility] HermannCHEM EGDPZ3795-28-88 02:57:0017.1[facility] HermannCHEM SFRJU1723-35-80 02:57:008.7[facility] HermannCHEM ESFQW7546-04-36 02:57:0011[facility] HermannCHEM TYBUV8033-43-27 02:57:65276Jyydgsua HermannCHEM VTEJA8031-20-73 08:43:62317 [facility] HermannCHEM GTOIV0428-63-42 08:43:003.8[facility] HermannCHEM PANEL 2016-11-13 08:43:0099[facility] HermannCHEM AUMTN4401-28-97 08:43:0030[facility] HermannCHEM JUNOP5249-09-09 08:43:0089[facility] HermannCHEM UBXCM7339-16-35 08:43:0020[facility] HermannCHEM GLFTG4970-71-13 08:43:000.3[facility] HermannCHEM OLYST7989-01-33 08:43:0037[facility] HermannCHEM PKFBO8329-30-90 08:43:003.5 [facility] HermannCHEM XJIYO2929-01-88 08:43:007.0[facility] HermannCHEM PANEL 2016-11-13 08:43:008.6[facility] HermannCHEM JKBGI6111-23-21 08:43:0011[facility] HermannCHEM KMCGS4626-11-87 08:43:96108Sbkpxrts HermannCHEM EQZMB6546-20-48 08:43:000.90[facility] HermannCHEM ZZIOV4946-51-50 08:43:85388Scjtxwpi HermannCHEM AIQXV5327-42-14 08:43:001.0[facility] HermannCHEM IBJMJ9013-37-04 08:43:0011.8 [facility] HermannCHEM YKDQP6227-64-30 08:43:003.5[facility] HermannCHEM PANEL 2016-11-13 08:43:0012[facility] CqfzxzbPIRMETUYVX4667-48-27 08:43:007.8[facility] KzgbpuxPHMKSWBBRQ1605-22-54 08:43:005.38[facility] DiwbpvhQZONHPZCXV2153-67-83 08:43:0014.8[facility] IgdounaWETGPJYZIM9040-21-18 08:43:0043.7[facility] RLVEGDDVJS7396-66-57 08:43:006.7[facility] LvywrtuQUMHJEAOJE9501-97-96 08:43:00 14.0[facility] HjycldgEGUTQTYVVV8651-74-07 08:43:0033.9[facility] HermannHEMATOLOGY 2016-11-13 08:43:57864Wnbxpcik OmnzjxnASYDDTQRUU2778-61-56 08:43:00 Test Item Value Reference Range Interpretation Comments MCH (test code = MCH) 27.5 pg 27.0-31.0 [facility] QaxqikjLEIUUHLOWE8359-71-51 08:43:0081.2[facility] HermannHEMATOLOGY 2016-11-13 08:43:004.5[facility] JyepkwxSGNTIADPJA9178-16-83 08:43:0029.5[facility] MlmfjxxECTDGRYGXD4944-14-16 08:43:0053.7[facility] NuqdpgeTLSDIXWCGX7830-51-04 08:43:0010.9[facility] JoalqdpBHEHEGKBSK0295-68-36 08:43:000.3[facility] ADTUKLXSXL6201-54-14 08:43:000.1[facility] FvmqlhaPAVQJGHGLE3880-02-77 08:43:002.0 [facility] UaxejirJOZZVSHHUR8608-18-54 08:43:003.6[facility] HermannHEMATOLOGY 2016-11-13 08:43:000.7[facility] ZnimykyNUCZHSCALJ8773-98-95 08:43:001.4[facility] HermannCHEM KZUJM7443-98-48 16:58:23670Qzfjzcwj HermannCHEM IOUML2798-40-84 16:58:000.2[facility] HermannCHEM YPHJC4590-95-34 16:58:0027[facility] HermannCHEM KGJAP3028-86-93 16:58:004.1[facility] HermannCHEM CQYTD7380-40-85 16:58:0011 [facility] HermannCHEM NLETV7112-09-84 16:58:0098[facility] HermannCHEM PANEL 2016-11-03 16:58:25432Tbluwawz HermannCHEM XBIER9470-87-76 16:58:000.90[facility] HermannCHEM BJJKC5801-17-92 16:58:0080[facility] HermannCHEM JOTRD8655-85-45 16:58:0029[facility] HermannCHEM ISUVZ7046-20-97 16:58:003.6[facility] HermannCHEM EQHQY2037-57-87 16:58:008.8[facility] HermannCHEM VDPKA6706-92-45 16:58:0040 [facility] HermannCHEM RERYO0284-57-05 16:58:007.2[facility] HermannCHEM PANEL 2016-11-03 16:58:29221Mvvrdlvd HermannCHEM AENRA2409-44-89 16:58:003.6[facility] HermannCHEM ZWBSN1327-29-98 16:58:0015.1[facility] HermannCHEM DPGRI6572-21-00 16:58:001.0[facility] HermannCHEM YTBTH5991-87-43 16:58:0012[facility] HermannCHEM BGUCM6666-71-43 16:58:53687Caairlig CoorryoTYQWSEHBHQ2341-21-18 16:58:0033.7 [facility] FqaagfeTTSAHFGRIQ8613-92-04 16:58:0014.6[facility] HermannHEMATOLOGY 2016-11-03 16:58:96080Wtkbakus LpuygptNDIXCKPJEX0955-06-60 16:58:0082.6[facility] AdkblabTMBZSAHNRU2236-96-98 16:58:008.3[facility] SdvuadyNZCOGHBIJC9680-68-13 16:58:00 Test Item Value Reference Range Interpretation Comments MCH (test code = MCH) 27.9 pg 27.0-31.0 [facility] LckmjeeMMEJRVEYZZ5137-10-97 16:58:0043.8[facility] HermannHEMATOLOGY 2016-11-03 16:58:0014.8[facility] YsvvbreWICQQKIEEX2368-44-24 16:58:005.31[facility] HisatqtAFBTRVSVJK2417-68-03 16:58:005.7[facility] GkufjfvRPSFXOGHSS8323-33-96 16:58:000.4[facility] IkvurklYSIGABJEKE0685-75-31 16:58:000.1[facility] MUMJVMXOKA7209-80-11 16:58:0035.9[facility] FwjvwlzVTXRHWQCCF7984-36-99 16:58:00 45.3[facility] XrpgzkpRMYZWMWFVQ2980-36-13 16:58:009.5[facility] HermannHEMATOLOGY 2016-11-03 16:58:007.9[facility] MqcbuycYSETJWTJIC7647-14-16 16:58:001.4[facility] QicjgcrLDJSEEUWIO6629-41-73 16:58:002.0[facility] XjoyqrdWTJUMCFFIK5779-45-33 16:58:000.5[facility] JyuldxhUZLODKMIQS9975-70-75 16:58:002.6[facility]annURINE AND VNFXV5953-45-00 16:58:00Negative *NA*(11/03/16 10:58 AM)[facility] AND VDHMC1206-08-10 16:58:00Negative (11/03/16 10:58 AM)[facility] AND PCPVF1448-47-50 16:58:00Negative (11/03/16 10:58 AM)[facility] SGIHE8521-89-26 16:58:00Negative (11/03/16 10:58 AM)[facility] AND VFVFP4703-75-01 16:58:005.0[facility]UR[facility] AND JDVGJ5379-78-31 16:58:00 Clear (11/03/16 10:58 AM)[facility] AND RGWMT6694-61-31 16:58:001.027 [facility]annCARDIAC XDVMKHB2818-73-26 15:29:001.3[facility] HermannCARDIAC YKZFMSU0115-21-88 15:29:001.1[facility] HermannCARDIAC TGQEADE2177-12-22 15:29:00 <0.02[facility]annCARDIAC RCDFLML1307-85-35 15:29:0086[facility] CARDIAC BFHUJFQ1632-46-68 11:09:000.8[facility] HermannCARDIAC QZTGPCE0162-80-68 11:09:000.8[facility]annCARDIAC DTTJYTP8954-73-03 11:09:00<0.02[facility]annCARDIAC DEYYGSI2742-65-19 11:09:0095[facility] HermannELECTROLYTES 2016-08-14 11:09:0012.9[facility] SbjhhkqOFUKQOWFHLEJ8971-86-52 11:09:65155 [facility] UuirdzwNUMVQLLQXATA1905-28-08 11:09:008.8[facility] HermannELECTROLYTES 2016-08-14 11:09:0026[facility] CjbbbhiJZHDGWQQXOHY9433-96-24 11:09:003.9[facility] DkzegynUIFFNTJZYHVT7016-44-38 11:09:23982Qopummss KdgbdxfVSNDATLZWMLT9700-66-55 11:09:09495Ixtqbfab ZuafslfINCAMAYRYEPA4659-27-01 11:09:000.90[facility] KRRFCGIXPNOA6049-58-08 11:09:0025[facility] ObkxuxdFVWBSLULZONL0360-63-82 11:09:00 228[facility] HermannSPECIAL YFFLVUOQT5386-80-26 11:09:009.2[facility] CARDIAC VQOFXAA0423-38-88 20:21:00<0.02[facility] HermannCHEM FAXLP9660-53-71 20:21:0088[facility] HermannCHEM DIHGQ2489-04-35 20:21:001.00[facility] HermannCHEM YPRZH3416-27-74 20:21:00028Oyilgepy HermannCHEM EDKEW1859-18-22 20:21:0099 [facility] HermannCHEM FROYR3389-06-31 20:21:003.8[facility] HermannCHEM PANEL 2016-08-13 20:21:0026[facility] HermannCHEM GWWWZ4857-78-59 20:21:008.1[facility] HermannCHEM LYJYN5611-50-37 20:21:003.7[facility] HermannCHEM SMZFZ3402-56-14 20:21:009.6[facility] HermannCHEM UQRUJ5840-92-04 20:21:31056Gaowhcwu HermannCHEM NBQJU7100-03-51 20:21:0015[facility] HermannCHEM ZENMW9496-10-81 20:21:0012 [facility] HermannCHEM ZHFUM9391-50-22 20:21:0044[facility] HermannCHEM PANEL 2016-08-13 20:21:0074[facility] HermannCHEM SIQSZ4406-17-12 20:21:000.3[facility] HermannCHEM YNRCT7012-87-48 20:21:000.8[facility] HermannCHEM KHGHQ6931-67-92 20:21:0015[facility] HermannCHEM TTHAC2857-40-00 20:21:004.4[facility] HermannCHEM BEUVF2755-62-61 20:21:0014.8[facility] HermannCHEM EEQOO4238-69-44 20:21:0062 [facility] JchcswaMEMFIYSIZE2775-22-03 20:21:0014.7[facility] HermannHEMATOLOGY 2016-08-13 20:21:0084.2[facility] FuixfoyDFZLHEROCW9218-44-41 20:21:005.31[facility] FhtzgtyDBWFFBRIJU7887-91-09 20:21:006.6[facility] FxgekkyGZLLUOTWDU4700-70-24 20:21:0044.7[facility] GemznefAHYCQFTPBH4754-43-45 20:21:0013.8[facility] QGUQIZPFBK9814-13-33 20:21:0033.0[facility] EbwspibINWBPMHJRP8005-10-23 20:21:00 Test Item Value Reference Range Interpretation Comments MCH (test code = MCH) 27.7 pg 27.0-31.0 [facility] ZyahubuBQUEZZTUPJ8042-59-33 20:21:49645Ngyqmvmu HermannHEMATOLOGY 2016-08-13 20:21:007.7[facility] DgarlthMZTQVYDKNN4013-58-46 20:21:00Moderate *ABN*(08/13/16 3:21 PM)[facility] OmcdehnHRIMKJHEBN0168-14-48 20:21:000.0[facility] SfpuskpWVQGYRPGOA1161-35-25 20:21:000.0[facility] DgddqjfFFZEFMSSGG1387-26-68 20:21:000.5[facility] RcjysygPRYDCFLIXP4399-09-26 20:21:001.0[facility] GIPRTLAWSB3082-33-41 20:21:005.0[facility] LxyvpwyQSTFHDBOBM3631-14-58 20:21:000.0 [facility] TcsqxkaKGURSOSMKU6398-99-98 20:21:007.8[facility]annHEMATOLOGY 2016-08-13 20:21:000.1[facility] OlonuedHZFMLPBZQF7989-96-82 20:21:00Normal (08/13/16 3:21 PM)[facility] IqttsstISSNEPEEDK9178-18-44 20:21:0076.7[facility] UrjqdzhNVXWTYBNGB7209-96-37 20:21:0015.4[facility] STOOL 2016-08-13 20:21:00Negative (08/13/16 3:21 PM)[facility] STOOL 2016-08-13 20:21:00Negative (08/13/16 3:21 PM)[facility] STOOL 2016-08-13 20:21:00Negative *NA*(08/13/16 3:21 PM)[facility] PCXLY2212-78-98 20:21:00Negative (08/13/16 3:21 PM)[facility] CPDYI5817-39-29 20:21:000.2[facility] JXWDJ3394-05-99 20:21:00 Trace *ABN*(08/13/16 3:21 PM)[facility] DOQZK5051-19-62 20:21:00 Clear (08/13/16 3:21 PM)[facility] HDEGM9114-73-65 20:21:00Yellow *NA*(08/13/16 3:21 PM)[facility] QZQOW6896-78-27 20:21:00 Test Item Value Reference Range Interpretation Comments UA pH (test code = UA pH) 7.0 1 5.0-8.0 [facility] NAPNY7505-79-89 20:21:00 Test Item Value Reference Range Interpretation Comments UA Spec Grav (test code = UA Spec 1.015 1 Grav) [facility] AjjgoujWNABGMIZERFA5882-01-38 23:31:14786Vzadfjqy HermannELECTROLYTES 2016-01-27 23:31:008.8[facility] GqzkrqcVLUGWQIKWYXQ4473-71-90 23:31:70949Lynbowhg KzzokviNXBSEWDCXBDM7255-40-17 23:31:003.8[facility] HfocyzvNUPQYLFZSSBS1065-01-27 23:31:0021[facility] RtgkezpPOIUTHXYEQHJ9410-19-24 23:31:003.9[facility] KUUAOUJLDNSB2118-86-72 23:31:007.5[facility] UwnqkklXUTIELCABVTL5191-05-58 23:31:0067[facility] YkvqnaeGUCKYSLAEBWM1474-36-94 23:31:70813Zwjyzvym [facility] XCCNVIIMRGEF0926-17-79 23:31:000.3[facility] GbugufvZMCZPQXDYWCW8431-23-95 23:31:40979Wykzprpf XewnifhKLWPSZRKWHGS5161-55-30 23:31:000.72[facility] XDVYDXKOGBUV2136-44-48 23:31:0015[facility] EomqwgmAAOUHWSMDCUN8657-51-32 23:31:00 29[facility] SrohktiCAIKEBNUIEXC8967-43-66 23:31:05363Mddbaerh HermannELECTROLYTES 2016-01-27 23:31:003.6[facility] JhqkqfrILTXJYKVECTQ6090-25-95 23:31:009.8[facility] ShuptezANIVGJNCMLCP3380-46-42 23:31:001.1[facility] UybombzKYDDWSXKSPCA6384-96-68 23:31:0021[facility] ClgtyulSDJDZCIVGQ6217-29-82 23:31:008.5[facility] FEUNYYBIGG6191-92-75 23:31:0013.9[facility] QawpnzxSJJERJKVZN9277-84-26 23:31:00 214[facility] XkblumfWDWOTHPIOW7652-47-56 23:31:0041.6[facility]annHEMATOLOGY 2016-01-27 23:31:0013.6[facility] CiohsnbOFKABZQSWV2758-35-59 23:31:00 Test Item Value Reference Range Interpretation Comments MCH (test code = MCH) 27.8 pg 27.0-31.0 [facility] MbifnclUOYJBLBAFV6131-16-62 23:31:0085.2[facility]annHEMATOLOGY 2016-01-27 23:31:0032.6[facility] KjuzyjnXAYUOBSHBK4689-18-77 23:31:006.9[facility] SdolubaMXGZGZDIRS7970-51-53 23:31:004.89[facility] LsvsmszUWCWHJDNBA6734-95-32 23:31:006.7[facility] DbvwatlUJWIZLJFBT8494-13-21 23:31:000.4[facility] VANWIXHRNG4280-23-78 23:31:004.8[facility] OgbtwnfUZFVUBHRIH7730-17-31 23:31:003.3 [facility] VsdhmtyUWVPBWCCJH7259-40-16 23:31:0048.2[facility]annHEMATOLOGY 2016-01-27 23:31:0039.9[facility] HvmpbzzSHUTVWMNWS1802-27-64 23:31:002.7[facility] EfrgldkQHUUVTMAMF1799-46-78 23:31:000.5[facility] YagjlvuITEITCAIHR7043-98-33 23:31:000.0[facility] ZkfldiePTWMSKEZFF1144-32-12 23:31:000.3[facility] AND KVLIB4360-40-50 23:31:00Negative (01/27/16 6:31 PM)[facility] IBSOR0770-46-23 23:31:000.2[facility] ZTXXU5126-58-92 23:31:00 Negative (01/27/16 6:31 PM)[facility] JBKJR3424-76-01 23:31:00 Negative (01/27/16 6:31 PM)[facility] ARJTV7489-94-86 23:31:00 Test Item Value Reference Range Interpretation Comments UA pH (test code = UA pH) 5.5 1 5.0-8.0 [facility] CGYZU3646-75-74 23:31:00Negative *NA*(01/27/16 6:31 PM) [facility] CVECN3654-25-23 23:31:00 Test Item Value Reference Range Interpretation Comments UA Spec Grav (test code = UA Spec 1.025 1 Grav) [facility] ZCPBC3563-55-39 23:31:00Yellow *NA*(01/27/16 6:31 PM) [facility] GTYHP6243-26-41 23:31:00Clear (01/27/16 6:31 PM) [facility] SINGLE (NOT PORTABLE) [facility] [address] [place] [address] Patient Name: LADARIUS MARTIN MR #: [id number] : 1965 Age/Sex: 51/M #: [id number] Adm Physician: Ordered by: STEVE DOLAN MD Report #: [id number] Location: ER Room/Bed: Procedure: [id number] DX/CHEST SINGLE (NOT PORTABLE) Exam Date: 09/30/17 Exam Time: 2104 REPORT STATUS: Signed CHEST SINGLE (NOT PORTABLE), 09/30/2017 8:51 PM Technique: CHEST SINGLE (NOT PORTABLE) Comparison: None available. Clinical history: Shortness of breath, cough Findings: Limited by portable technique and soft tissue att enuation. Given this, grossly unremarkable appearance of the heart, mediastinum, lungs and pleuralspaces.. Impression: 1. Lines/Tubes: None 2. No definite acute abnormality. Signed by:Dr Dane Royal MD on 09/30/2017 9:36 PM Dictated By: DANE ROYAL MD 35 Transcribed By: TONY on 09/30/172135 COPY TO: STEVE DOLAN MD
[2021-03-09] MEDS ORDERED: TETRACAINE HCL 0.5% 4ML OPTH ONE (22:49)
[2021-03-09] MEDS ORDERED: FLUORESCEIN SODIUM 1 MG/WRAP ONE (22:49)
--- NOTE | 2021-03-09 23:50 | ER ---
Nurse's Notes [facility] Name: Lexa Bower Age: 55 yrs Sex: Male : 1965 Arrival Date: 03/09/2021 Time: 21:27 Bed 23 Private MD: Diagnosis: Injury of conjunctiva and corneal abrasion without foreign body, right eye Presentation: 03/09 21:42 Chief complaint: Patient states: L eye irritated since this morning, tearing, itchy. ca1 Denies injury to the L eye. Coronavirus screen: Client denies travel out of the [place] in the last 14 days. At this time, the client does not indicate any symptoms associated with coronavirus-19. Ebola Screen: Patient negative for fever greater than or equal to 101.5 degrees Fahrenheit, and additional compatible Ebola Virus Disease symptoms Patient denies exposure to infectious person. Patient denies travel to an Ebola-affected area in the 21 days before illness onset. No symptoms or risks identified at this time. Initial Sepsis Screen: Does the patient meet any 2 criteria? No. Patient's initial sepsis screen is negative. Does the patient have a suspected source of infection? Yes:. Risk Assessment: Do you want to hurt yourself or someone else? Patient reports no desire to harm self or others. Onset of symptoms was March 09, 2021. 21:42 Method Of Arrival: Ambulatory ca1 21:42 Acuity: JENNY 4 ca1 Historical: - Allergies: 21:46 NKDA; ca1 - Home Meds: 21:46 Insulin: Regular Sub-Q [Active]; ca1 - PMHx: 21:46 COPD; Depression; Diabetes - IDDM; GERD; High Cholesterol; Hypertension; Migraines; ca1 Seizures; - PSHx: 21:46 Abdominal surgery; Exploratory lap; ca1 - Immunization history:: Client reports receiving the 1st dose of the Covid vaccine. - Social history:: Smoking status: Patient/guardian denies using tobacco, Stopped _ months ago 2. Screenin:46 Abuse screen: Denies threats or abuse. Denies injuries from another. Nutritional iw screening: No deficits noted. Tuberculosis screening: No symptoms or risk factors identified. Fall Risk No IV (0 pts). Assessment: 22:45 General: Appears in no apparent distress. Behavior is calm, cooperative, appropriate iw for age. Pain: Complains of pain in right eye. Neuro: Level of Consciousness is awake, alert, obeys commands, Oriented to person, place, time, situation, Moves all extremities. Full function. EENT: Eyes Sclera/Cornea are reddened in outer aspect of conjuctiva of right eye, iris of right eye and inner aspect of conjuctiva of right eye. Derm: Skin is intact, is healthy with good turgor. Musculoskeletal: Range of motion: intact in all extremities. 23:42 Reassessment: Patient appears in no apparent distress at this time. Patient and/or zb family updated on plan of care and expected duration. Pain level reassessed. Patient is alert, oriented x 3, equal unlabored respirations, skin warm/dry/pink. visual acuity completed. 23:43 Reassessment: ECP at bedside assessing patient eye. zb Vital Signs: 21:42 BP 132 / 98; Pulse 113; Resp 16 S; Temp 97.5(TE); Pulse Ox 98% on R/A; Weight 117.93 kg ca1 (R); Height 5 ft. 7 in. (170.18 cm) (R); Pain 8/10; 21:42 Body Mass Index 40.72 (117.93 kg, 170.18 cm) ca1 Visual Acuity: 23:42 Left Eye Visual acuity 20/07, Pupil size 3 mm, Normal, React To Light, Reactive To zb Accomodation; Right Eye Visual acuity 20/200, Pupil size 3 mm, Normal, React To Light, Reactive To Accomodation; Both Eyes Visual acuity 20/70; Without Lenses; ED Course: 21:27 Patient arrived in ED. es 21:44 Triage completed. ca1 21:46 Arm band placed on right wrist. ca1 22:20 Corry Saucedo, RN is Primary Nurse. iw 22:26 Russell Andrade PA is PHCP. cp 22:26 Desmond Jj MD is Attending Physician. cp 23:41 Patient has correct armband on for positive identification. Pulse ox on. NIBP on. zb 23:41 No provider procedures requiring assistance completed. Patient did not have IV access zb during this emergency room visit. 23:46 Michell Olguin MD is Referral Physician. cp Administered Medications: 23:28 Drug: Tetracaine Drops 0.5 % 1 drops Route: Ophthalmic; Site: right eye; iw 23:46 Not Given (Physician Discretion): Gentamicin Drops 0.3 % 1 drops Ophthalmic once cp 23:47 Not Given (Duplicate Order): Tobramycin Drops (0.3 %) 1 drops Ophthalmic once zb 23:59 Drug: Gentamicin Drops 0.3 % 1 drops Route: Ophthalmic; Site: right eye; zb 23:59 Follow up: Response: No adverse reaction; Medication administered at discharge. zb Outcome: 23:43 Discharged to home ambulatory, with family. zb 23:43 Condition: stable 23:43 Discharge instructions given to patient, Instructed on discharge instructions, follow up and referral plans. medication usage, Demonstrated understanding of instructions, follow-up care, medications, Prescriptions given X 1. 23:49 Discharge ordered by . charlee 03/10 00:00 Patient left the ED. zb Signatures: Tiffany Patiño Irene, RN RN iw Russell Andrade PA PA cp Acob, Cheryl, RN RN ca1 Brown, Zipporah, RN RN zb Corrections: (The following items were deleted from the chart) 00:00 03/09 23:59 Response: No adverse reaction zb zb
--- NOTE | 2021-03-09 23:50 | EDPHYS ---
Physician Documentation [facility] Name: Lexa Bower Age: 55 yrs Sex: Male : 1965 Arrival Date: 03/09/2021 Time: 21:27 Bed 23 Private MD: ED Physician Desmond Jj HPI: 03/09 22:45 This 55 yrs old Male presents to ER via Ambulatory with complaints of Eye cp Problem. 22:45 The patient is experiencing foreign body sensation, pain, redness, itching, to the cp right eye. Onset: The symptoms/episode began/occurred this morning. Duration: the symptoms are continuous. Associated signs and symptoms: Pertinent negatives: ear ache, fever, runny nose. Patient reader glasses. Historical: - Allergies: 21:46 NKDA; ca1 - Home Meds: 21:46 Insulin: Regular Sub-Q [Active]; ca1 - PMHx: 21:46 COPD; Depression; Diabetes - IDDM; GERD; High Cholesterol; Hypertension; Migraines; ca1 Seizures; - PSHx: 21:46 Abdominal surgery; Exploratory lap; ca1 - Immunization history:: Client reports receiving the 1st dose of the Covid vaccine. - Social history:: Smoking status: Patient/guardian denies using tobacco, Stopped _ months ago 2. ROS: 22:50 Constitutional: Negative for body aches, chills, fever. cp 22:50 Eyes: Positive for pain, redness, of the right eye, clear drainage. cp 22:50 ENT: Negative for drainage from ear(s), ear pain, sore throat, difficulty swallowing, difficulty handling secretions. 22:50 Respiratory: Negative for cough, shortness of breath, wheezing. 22:50 Skin: Negative for cellulitis, rash. 22:50 Neuro: Negative for headache. 22:50 All other systems are negative. Exam: 23:00 Constitutional: The patient appears in no acute distress, alert, awake, non-toxic, well cp developed, well nourished, uncomfortable. 23:00 Head/Face: Normocephalic, atraumatic. cp 23:00 Eyes: Periorbital structures: appear normal, Pupils: equal, round, and reactive to light and accomodation, Extraocular movements: intact throughout, Conjunctiva: injected, in the right eye, Corneas: abrasion, that is small, on the right, at 5 o'clock, foreign body, is not appreciated, a fluorescein strip employed to appreciate the findings, Sclera: no appreciated abnormality, Lids and lashes: appear normal, bilaterally, Visual smith: are intact, Examination of the other eye reveals no obvious gross abnormality. 23:00 ENT: External ear(s): are unremarkable, Ear canal(s): are normal, clear, TM's: dullness, bilaterally, Nose: is normal, Mouth: Lips: moist, Oral mucosa: moist, Posterior pharynx: Airway: no evidence of obstruction, patent. 23:00 Neck: Lymph nodes: no appreciated lymphadenopathy. 23:00 Skin: no rash present. cp Vital Signs: 21:42 BP 132 / 98; Pulse 113; Resp 16 S; Temp 97.5(TE); Pulse Ox 98% on R/A; Weight 117.93 kg ca1 (R); Height 5 ft. 7 in. (170.18 cm) (R); Pain 8/10; 21:42 Body Mass Index 40.72 (117.93 kg, 170.18 cm) ca1 Visual Acuity: 23:42 Left Eye Visual acuity 20/07, Pupil size 3 mm, Normal, React To Light, Reactive To zb Accomodation; Right Eye Visual acuity 20/200, Pupil size 3 mm, Normal, React To Light, Reactive To Accomodation; Both Eyes Visual acuity 20/70; Without Lenses; MDM: 22:29 Patient medically screened. cp 22:45 Differential diagnosis: Corneal abrasion of right eye. Foreign body in right eye. Acute cp iritis of Infectious conjunctivitis in right eye. 23:48 Data reviewed: vital signs, nurses notes. cp 23:48 Counseling: I had a detailed discussion with the patient and/or guardian regarding: the cp historical points, exam findings, and any diagnostic results supporting the discharge/admit diagnosis, the need for outpatient follow up, an opthalmologist, to return to the emergency department if symptoms worsen or persist or if there are any questions or concerns that arise at home. Response to treatment: the patient's symptoms have markedly improved after treatment, and as a result, I will discharge patient. 03/09 22:39 Order name: Visual Acuity; Complete Time: 23:41 cp 03/09 22:39 Order name: Eye Tray; Complete Time: 22:45 cp 03/09 22:39 Order name: Fluoresene Opth strip; Complete Time: 22:45 cp Administered Medications: 23:28 Drug: Tetracaine Drops 0.5 % 1 drops Route: Ophthalmic; Site: right eye; iw 23:46 Not Given (Physician Discretion): Gentamicin Drops 0.3 % 1 drops Ophthalmic once cp 23:47 Not Given (Duplicate Order): Tobramycin Drops (0.3 %) 1 drops Ophthalmic once zb 23:59 Drug: Gentamicin Drops 0.3 % 1 drops Route: Ophthalmic; Site: right eye; zb 23:59 Follow up: Response: No adverse reaction; Medication administered at discharge. zb Disposition: 03/10 00:05 Chart complete. cp 05:05 Co-signature as Attending Physician, Desmond Jj MD I agree with the assessment and tw4 plan of care. Disposition: 03/09/21 23:49 Discharged to Home. Impression: Injury of conjunctiva and corneal abrasion without foreign body, right eye. - Condition is Stable. - Discharge Instructions: Corneal Abrasion. - Prescriptions for tobramycin 0.3 % Ophthalmic drops - instill 1 drop by OPHTHALMIC route every 4 hours for 7 days; 1 bottle. - Medication Reconciliation Form, Thank You Letter, Antibiotic Education, Prescription Opioid Use form. - Follow up: Michell Olguin MD; When: 1 - 2 days; Reason: Recheck today's complaints. - Problem is new. - Symptoms have improved. Signatures: Corry Saucedo RN RN iw Russell Andrade PA PA cp Wadley, Terrence, MD MD tw4 Gloria Saldivar RN RN [facility] Kimberly Gibbs RN RN zb Corrections: (The following items were deleted from the chart) 00:00 03/09 23:49 03/09/2021 23:49 Discharged to Home. Impression: Injury of conjunctiva and zb corneal abrasion without foreign body, right eye. Condition is Stable. Forms are Medication Reconciliation Form, Thank You Letter, Antibiotic Education, Prescription Opioid Use. Follow up: Michell Olguin; When: 1 - 2 days; Reason: Recheck today's complaints. Problem is new. Symptoms have improved. cp 03/10 23:23 03/09 22:45 The patient is experiencing redness, itching, cp cp
[2021-03-10] MEDS ORDERED: GENTAMICIN 0.3% OPTH DROP 5ML ONE ×2 (00:06→00:18)
[2021-03-10 01:17] VITALS: BP 132/98; TEMP 97.5; O2SAT 98
== END 2021-03-10 | disposition home or self-care (01) ==
LOC: ER 21:22
DX: S05.01XA Injury of conjunctiva and corneal abrasion without foreign body, right eye, initial encounter (principal); I10 Essential (primary) hypertension; E11.9 Type 2 diabetes mellitus without complications; Z79.4 Long term (current) use of insulin; Z87.891 Personal history of nicotine dependence
CPT/HCPCS: 99283

== ENCOUNTER 2022-12-17 16:18 | Inpatient (IN) | payer OTHER ==
[2022-12-17 16:44] LABS: Absolute Lymphocytes (CBC) 1.5 K/uL (0.7-4.9); Hematocrit 48.6 % (39.6-49.0); MCV 81.1 fL (80-100); MPV 8.1 fL (7.6-11.3); RBC Red Blood Cell Count 5.99 M/uL (4.33-5.43)
--- OUTSIDE RECORDS SUMMARY | 2022-12-17 16:51 | XMS REPORT | Continuity of Care Document ---
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 nivers 90 3-02 Puffs ity of mcg/actuati 17:34: every 6 [place] on inhaler 31 (six) Medical hours as Branch needed for Wheezing or Shortness of Breath. potassium 2022-0 2022- No 10meq Take 1 Univ ers chloride 10 3-02 03-02 tablet by it y of mEq CR 17:25: 00:00 mouth in [place] tablet 16 :00 the Medical morning. Branch albuterol Yes 2{puff} 2 Puff, Un perfecto (VENTOLIN) 3-02 Inhalation ity of inhaler 2 04:48: , Q4HPRN, [place] as Puff 40 Starting Medical on Tue12/15/22 at 2248, Until Discontinu ed, Routine, Wheezing, Shortness of Breath metoprolol 2022- Yes [id number] 25mg Take 1 [facility] succinate 3-02 tablet by ity o f XL 25 mg 24 00:00: mouth in [place] hr tablet 00 the Medical morning Branch and 1 tablet in the evening. Magnesium 2022- Yes [id number] 400mg Take 400 [facility] Oxide 420 3-02 9103 mg by ity of mg Tab 00:00: mouth in [place] 00 the Medical morning. Branch metoprolol 2022- Yes [id number] 25mg Take 1 [facility] succinate 3-02 tablet by ity o f XL 25 mg 24 00:00: mouth in [place] hr tablet 00 the Medical morning Branch and 1 tablet in the evening. Magnesium 2022- Yes [id number] 400mg Take 400 [facility] Oxide 420 3-02 9103 mg by ity of mg Tab 00:00: mouth in [place] 00 the morning. Branch furosemide 2022- Yes [id number] 40mg Take 1 [facility] (LASIX) 40 3- 04-02 tablet by ity of mg tablet 00:00: 04:59 mouth in [place] 00 :00 the Medical morning Branch and 1 tablet at noon and 1 tablet in the evening. Do all this for 30 days. 2 tablets QAM, 1 tablet midday, 1 tablet QPM atorvastati 2022- Yes [id number] 40mg Take 2 Univers n 20 mg -11 20-02 tablets by ity o f tablet 00:00: 04:59 mouth at [place] 00 :00 bedtime Medical for 30 Branch days. furosemide 2022- Yes [id number] 40mg Take 1 [facility] (LASIX) 40 3-02 04-02 tablet by ity of mg tablet 00:00: 04:59 mouth in [place] 00 :00 the Medical morning Branch and 1 tablet at noon and 1 tablet in the evening. Do all this for 30 days. 2 tablets QAM, 1 tablet midday, 1 tablet QPM atorvastati 2022- Yes [id number] 40mg Take 2 Univers n 20 mg 3-02 04-02 tablets by ity o f tablet 00:00: 04:59 mouth at [place] 00 :00 bedtime Medical for 30 Branch days. metoprolol 2022- No [id number] 25mg Take 1 [facility] succinate 12-16 tablet by ity of XL 25 mg 24 00:00: 00:00 mouth in [place] hr tablet 00 :00 the Medical morning Branch and 1 tablet in the evening. metoprolol 2022- No [id number] 25mg Take 1 [facility] succinate 12-16 tablet by ity of XL 25 mg 24 00:00: 00:00 mouth in [place] hr tablet 00 :00 the Medical morning Branch and 1 tablet in the evening. metoprolol 2022- No [id number] 25mg Take 1 [facility] succinate 12-16 tablet by ity of XL 25 mg 24 00:00: 00:00 mouth in [place] hr tablet 00 :00 the Medical morning Branch and 1 tablet in the evening. metoprolol 2022- No [id number] 25mg Take 1 [facility] succinate 12-16 tablet by ity of XL 25 mg 24 00:00: 00:00 mouth in [place] hr tablet 00 :00 the Medical morning Branch and 1 tablet in the evening. Sliding Yes Subcutaneo Univ ers Scale 12-15 us, AC+HS, ity of Insulin-Reg 17:30: First dose [place] ular + Fsbg 00 on Tue Medica l Testing 12/15/22 at Branch 1130, Until Discontinu ed, Routine glucagon Yes 1mg 1 mg, Univers (GLUCAGEN 12-15 Intramuscu ity of DIAGNOSTIC 16:00: lar, PRN, [place] KIT) 25 Starting Medical injection 1 on Tue Branch mg 12/15/22 at 1000, Until Discontinu ed, MOE, Blood Glucose < or = 70 mg/dL and patient is NPO, unable to swallow or has mental changes. dextrose 50 2022- Yes 25mL 25 mL, Univ ers % in water 12-15 Slow IV ity of (D50W) 16:00: Push, PRN, [place] injection 25 Starting Medica l 25 mL on Tue Branch 12/15/22 at 1000, Until Discontinu ed, MOE, Blood Glucose < or = 70 mg/dL and patient is NPO, unable to swallow or has mental status changes. lisinopriL 2022-0 Yes 2.5mg 2.5 mg, Uni vers (PRINIVIL,Z 12-15 Oral, ity of ESTRIL) 15:00: DAILY, [place] tablet 2.5 00 First dose Med ical mg on Tue12/15/22 at 0900, Until Discontinu ed, Routine ARIPiprazol 2022-0 Yes 10mg 10 mg, Univ ers e (ABILIFY) 12-15 Oral, ity of tablet 10 15:00: DAILY, [place] mg 00 First dose Medical on Tue12/15/22 at 0900, Until Discontinu ed, Routine metOLazone 2022-0 202- No 5mg 5 mg, Unive rs (ZAROXOLYN) 12-15 Oral, ity of tablet 5 mg 15:00: 14:03 ONCE, 1 [place] 00 :00 dose, On Tue12/15/22 Branch at 0900, Routine furosemide 2022-0 Yes 40mg 40 mg, IV Un perfecto (LASIX) 12-15 Push, Q8H, ity of injection 05:15: First dose [place] 40 mg 00 (after Medical last Branch modificati on) on Tue12/14/22 at 2315, Until Discontinu ed, Routine spironolact 2022-0 Yes 25mg 25 mg, Univ ers one 12-15 Oral, ity of (ALDACTONE) 05:15: DAILY, [place] tablet 25 00 First dose Medi compa mg on Tue [place] 12/14/22 at 2315, Until Discontinu ed, Routine baclofen 2022-0 Yes 5mg 5 mg, Univers (LIORESAL) 12-15 Oral, BID, ity of tablet 5 mg 05:15: First dose [place] 00 on [facility] 12/14/22 at Branch 2315, Until Discontinu ed, Routine atorvastati 2022-0 Yes 20mg 20 mg, Univ ers n (LIPITOR) 12-15 Oral, QHS, it y of tablet 20 05:15: First dose [place] mg 00 on [facility] 12/14/22 at Branch 2315, Until Discontinu ed, Routine aspirin 2023-0 Yes 81mg 81 mg, Univers chewable 12-15 Oral, QAM ity of tablet 81 05:15: WITH [place] mg 00 BREAKFAST, Medical First dose Branch on 12/14/22 at 2315, Until Discontinu ed, Routine metoprolol 0 Yes 25mg 25 mg, Unive rs succinate 12-15 Oral, BID, ity of XL (TOPROL 05:15: First dose [place] XL) tablet 00 on [facility] 25 mg 12/14/22 at Branch 2315, Until Discontinu ed, Routine insulin Yes 30U 30 Units, [place] [facility] rs glargine 12-15 Subcutaneo ity o f (LANTUS 05:15: us, BID, [place] U-100) 00 First dose Medical injection on [facility] 30 Units 12/14/22 at 2315, Until Discontinu ed, Routine zolpidem Yes 5mg 5 mg, Univers (AMBIEN) 12-15 Oral, ity of tablet 5 mg 05:05: QHSPRN, [place] 17 Starting Medical on [facility] 12/14/22 at 2305, Until Discontinu ed, Routine, Insomnia traMADoL Yes 50mg 50 mg, Univers (ULTRAM) 12-15 Oral, ity of tablet 50 05:05: Q8HPRN, [place] mg 09 Starting Medical on [facility] 12/14/22 at 2305, Until Discontinu ed, Routine, Pain (scale 4-6) morpHINE (2 2022- No 4mg 4 mg, Slow Univers mg/mL) 12-14 IV Push, ity of injection 4 23:15: 22:27 ONCE, 1 [place] mg 00 :00 dose, On Medical [facility] 12/14/22 at 1715, STAT enoxaparin 0 Yes 40mg 40 mg, [place] [facility] rs (LOVENOX) 12-14 Subcutaneo ity of injection 23:00: us, DAILY, [place] 40 mg 00 First dose Medical on [facility] 12/14/22 at 1700, Until Discontinu ed, Routine acetaminoph Yes 650mg 650 mg, Un perfecto en 12-14 Oral, ity of (TYLENOL) 21:13: Q6HPRN, [place] tablet 650 16 Starting Medic al mg on [facility] Branch 12/14/22 at 1513, Until Discontinu ed, Routine, Pain (scale 1-3) morpHINE (4 2022-2022- No 4mg 4 mg, Slow Univers mg/mL) 12-14 IV Push, ity of injection 4 20:15: 19:18 ONCE, 1 [place] mg 00 :00 dose, On Medical [facility] Branch 12/14/22 at 1415, STAT morpHINE (2 2022- No 4mg 4 mg, Slow Univers mg/mL) 12-14 IV Push, ity of injection 4 18:30: 17:57 ONCE, 1 [place] mg 00 :00 dose, On Medical [facility] 12/14/22 at 1230, STAT ipratropium 2022- No 3mL 3 mL, Univ ers -albuteroL 12-14 Inhalation it y of (DUONEB) 17:30: 16:47 , ONCE [place] 0.5 mg-3 00 :00 NOW, 1 Medical mg(2.5 mg dose, On Branch base)/3 mL Tue nebulizer 12/14/22 at solution 3 1130, MOE mL furosemide 2022- No 60mg 60 mg, IV U nivers (LASIX) 12-14 Push, ity of injection 16:45: 16:43 ONCE, 1 [place] 60 mg 00 :00 dose, On Medical [facility] 12/14/22 at 1045, MOE iopamidol 2022- No [id number] 100mL 100 mL, Univers (ISOVUE 11-30 Intravenou ity o f 370-500 mL) 19:45: 18:58 s, ONCE, 1 [place] injection 00 :00 dose, On Medica l 100 mL [facility] Branch 11/30/22 at 1345, Routine albuterol 2022- No 2.5mg 2.5 mg, Uni vers (PROVENTIL) 11-30 Inhalation i ty of 2.5 mg /3 19:00: 18:18 , ONCE, 1 [place] mL (0.083 00 :00 dose, On Medica l %) Tue Branch nebulizer 11/30/22 at solution 1300, 2.5 mg Routine ipratropium 2022- No .5mg 0.5 mg, Un perfecto (ATROVENT) 11-30 Inhalation it y of 0.02 % 19:00: 18:18 , ONCE, 1 [place] nebulizer 00 :00 dose, On Medica l solution Tue Branch 0.5 mg 11/30/22 at 1300, Routine aspirin 2022- No 325mg 325 mg, Unive rs tablet 325 11-30 Oral, ity of mg 19:00: 18:13 ONCE, 1 [place] 00 :00 dose, On Medical Tue Branch 11/30/22 at 1300, STAT furosemide 2022- No 40mg 40 mg, IV U nivers (LASIX) 11-30 Push, ity of injection 18:00: 18:13 ONCE, 1 [place] 40 mg 00 :00 dose, On Medical Tue Branch 11/30/22 at 1200, MOE albuterol Yes 2{puff} Inhale 2 U nivers 90 2-14 Puffs ity of mcg/actuati 14:35: every 6 [place] on inhaler 58 (six) Medical hours as Branch needed for Wheezing or Shortness of Breath. furosemide Yes [id number] 2 tablets Univers (LASIX) 40 2-14 QAM, 1 ity of mg tablet 00:00: tablet [place] 00 midday, 1 Medical tablet QPM Branch albuterol Yes [id number] 2{puff} Inhale 2 Univers 90 2-14 Puffs ity of mcg/actuati 00:00: every 4 [place] on inhaler 00 (four) Medical hours as Branch needed for Wheezing or Shortness of Breath. furosemide 2022- No [id number] 2 tablets Univers (LASIX) 40 2-14 03-02 QAM, 1 ity of mg tablet 00:00: 00:00 tablet [place] 00 :00 midday, 1 Medical tablet QPM Branch albuterol 2022- No [id number] 2{puff} Inhale 2 Univers 90 2-14 02-28 Puffs ity of mcg/actuati 00:00: 00:00 every 4 [place] on inhaler 00 :00 (four) Medical hours as Branch needed for Wheezing or Shortness of Breath. magnesium 0 2022- Yes 400mg 400 mg, Uni vers oxide 11-23 Oral, BID, ity of (MAG-OX 02:00: 13:59 3 doses, [place] 400) tablet 00 :00 First dose Me dical 400 mg on Mon Branch 11/22/22 at 1999, Last dose on e 11/23/22 at 1999, Routine predniSONE 2022-0 2022- Yes [id number] 40mg Take 2 Univers 20 mg 11-23 9103 tablets by ity of tablet 00:00: 05:59 mouth in [place] 00 :00 the Medical morning Branch for 3 days. predniSONE 2022-0 2022- Yes [id number] 40mg Take 2 Univers 20 mg 11-23 9103 tablets by ity of tablet 00:00: 05:59 mouth in [place] 00 :00 the Medical morning Branch for 3 days. baclofen 10 Yes 10mg Take 10 mg Univers mg tablet 2-06 by mouth 3 ity of 17:10: (three) [place] [address] times Medical daily. Branch potassium Yes 10meq Take 10 Univ ers chloride 10 2-06 mEq by ity of mEq CR 17:10: mouth [place] tablet 33 daily. Medical Branch atorvastati Yes 10mg Take 10 mg Univers n 10 mg 2-06 by mouth ity of tablet 17:10: at [place] [address] bedtime. Medical Branch ARIPiprazol Yes 10mg Take 10 mg Univers e 10 mg 2-06 by mouth ity of tablet 17:10: daily. [place] [address] Medical Branch traMADoL 50 0 Yes 50mg Take 50 mg Univers mg tablet 2-06 by mouth ity of 17:10: every 6 [place] [address] (six) Medical hours as Branch needed for Pain (scale 4-6). zolpidem 0 Yes 12.5mg Take 12.5 Un perfecto 12.5 mg CR 2-06 mg by ity of tablet 17:10: mouth at [place] [address] bedtime as Medical needed for Branch Sleep. insulin 0 Yes 30U inject 30 Unive rs aspart 2-06 Units ity of U-100 100 17:10: under the [place] unit/mL ( skin 3 Medical mL) (three) Branch injection times daily before meals. albuterol Yes 2{puff} Inhale 2 U nivers 90 2-06 Puffs ity of mcg/actuati 17:10: every 6 [place] on inhaler 33 (six) Medical hours as Branch needed for Wheezing or Shortness of Breath. baclofen 10 Yes 10mg Take 10 mg Univers mg tablet 2-06 by mouth 3 ity of 17:10: (three) [place] [address] times Medical daily. Branch potassium 0 Yes 10meq Take 10 Univ ers chloride 10 2-06 mEq by ity of mEq CR 17:10: mouth [place] tablet 33 daily. Medical Branch atorvastati 0 Yes 10mg Take 10 mg Univers n 10 mg 2-06 by mouth ity of tablet 17:10: at [place] [address] bedtime. Medical Branch ARIPiprazol Yes 10mg Take 10 mg Univers e 10 mg 2-06 by mouth ity of tablet 17:10: daily. [place] [address] Medical Branch traMADoL 50 0 Yes 50mg Take 50 mg Univers mg tablet 2-06 by mouth ity of 17:10: every 6 [place] [address] (six) Medical hours as Branch needed for Pain (scale 4-6). zolpidem 0 Yes 12.5mg Take 12.5 Un perfecto 12.5 mg CR 2-06 mg by ity of tablet 17:10: mouth at [place] [address] bedtime as Medical needed for Branch Sleep. insulin 0 Yes 30U inject 30 Unive rs aspart 2-06 Units ity of U-100 100 17:10: under the [place] unit/mL ( skin 3 Medical mL) (three) Branch injection times daily before meals. albuterol 0 Yes 2{puff} Inhale 2 U nivers 90 2-06 Puffs ity of mcg/actuati 17:10: every 6 [place] on inhaler 33 (six) Medical hours as Branch needed for Wheezing or Shortness of Breath. baclofen 10 0 Yes 10mg Take 10 mg Univers mg tablet 2-06 by mouth 3 ity of 17:10: (three) [place] [address] times Medical daily. Branch potassium 0 Yes 10meq Take 10 Univ ers chloride 10 2-06 mEq by ity of mEq CR 17:10: mouth [place] tablet 33 daily. Medical Branch atorvastati Yes 10mg Take 10 mg Univers n 10 mg 2-06 by mouth ity of tablet 17:10: at [place] [address] bedtime. Medical Branch ARIPiprazol Yes 10mg Take 10 mg Univers e 10 mg 2-06 by mouth ity of tablet 17:10: daily. [place] [address] Medical Branch traMADoL 50 Yes 50mg Take 50 mg Univers mg tablet 2-06 by mouth ity of 17:10: every 6 [place] [address] (six) Medical hours as Branch needed for Pain (scale 4-6). zolpidem Yes 12.5mg Take 12.5 Un perfecto 12.5 mg CR 2-06 mg by ity of tablet 17:10: mouth at [place] [address] bedtime as Medical needed for Branch Sleep. insulin Yes 30U inject 30 Unive rs aspart 2-06 Units ity of U-100 100 17:10: under the [place] unit/mL (3 33 skin 3 Medical mL) (three) Branch injection times daily before meals. albuterol Yes 2{puff} Inhale 2 U nivers 90 2-06 Puffs ity of mcg/actuati 17:10: every 6 [place] on inhaler 33 (six) Medical hours as Branch needed for Wheezing or Shortness of Breath. baclofen 10 Yes 10mg Take 10 mg Univers mg tablet 2-06 by mouth 3 ity of 17:10: (three) [place] [address] times Medical daily. Branch potassium Yes 10meq Take 10 Univ ers chloride 10 2-06 mEq by ity of mEq CR 17:10: mouth [place] tablet 33 daily. Medical Branch atorvastati Yes 10mg Take 10 mg Univers n 10 mg 2-06 by mouth ity of tablet 17:10: at [place] [address] bedtime. Medical Branch ARIPiprazol Yes 10mg Take 10 mg Univers e 10 mg 2-06 by mouth ity of tablet 17:10: daily. [place] [address] Medical Branch traMADoL 50 Yes 50mg Take 50 mg Univers mg tablet 2-06 by mouth ity of 17:10: every 6 [place] [address] (six) Medical hours as Branch needed for Pain (scale 4-6). zolpidem 0 Yes 12.5mg Take 12.5 Un perfecto 12.5 mg CR 2-06 mg by ity of tablet 17:10: mouth at [place] [address] bedtime as Medical needed for Branch Sleep. insulin 2022-0 Yes 30U inject 30 Unive rs aspart 2-06 Units ity of U-100 100 17:10: under the [place] unit/mL (3 33 skin 3 Medical mL) (three) Branch injection times daily before meals. albuterol 0 Yes 2{puff} Inhale 2 U nivers 90 2-06 Puffs ity of mcg/actuati 17:10: every 6 [place] on inhaler 33 (six) Medical hours as Branch needed for Wheezing or Shortness of Breath. baclofen 10 0 Yes 10mg Take 10 mg Univers mg tablet 2-06 by mouth 3 ity of 17:10: (three) [place] [address] times Medical daily. Branch potassium 0 Yes 10meq Take 10 Univ ers chloride 10 2-06 mEq by ity of mEq CR 17:10: mouth [place] tablet 33 daily. Medical Branch atorvastati 0 Yes 10mg Take 10 mg Univers n 10 mg 2-06 by mouth ity of tablet 17:10: at [place] [address] bedtime. Medical Branch ARIPiprazol 0 Yes 10mg Take 10 mg Univers e 10 mg 2-06 by mouth ity of tablet 17:10: daily. [place] [address] Medical Branch traMADoL 50 2022-0 Yes 50mg Take 50 mg Univers mg tablet 2-06 by mouth ity of 17:10: every 6 [place] [address] (six) Medical hours as Branch needed for Pain (scale 4-6). zolpidem 2022-0 Yes 12.5mg Take 12.5 Un perfecto 12.5 mg CR 2-06 mg by ity of tablet 17:10: mouth at [place] [address] bedtime as Medical needed for Branch Sleep. insulin 2022-0 Yes 30U inject 30 Unive rs aspart 2-06 Units ity of U-100 100 17:10: under the [place] unit/mL (3 33 skin 3 Medical mL) (three) Branch injection times daily before meals. albuterol 2022-0 Yes 2{puff} Inhale 2 U nivers 90 2-06 Puffs ity of mcg/actuati 17:10: every 6 [place] on inhaler 33 (six) Medical hours as Branch needed for Wheezing or Shortness of Breath. baclofen 10 Yes 10mg Take 10 mg Univers mg tablet 2-06 by mouth 3 ity of 17:10: (three) [place] 33 times Medical daily. Branch potassium Yes 10meq Take 10 Univ ers chloride 10 2-06 mEq by ity of mEq CR 17:10: mouth [place] tablet 33 daily. Medical Branch atorvastati Yes 10mg Take 10 mg Univers n 10 mg 2-06 by mouth ity of tablet 17:10: at [place] [address] bedtime. Medical Branch ARIPiprazol Yes 10mg Take 10 mg Univers e 10 mg 2-06 by mouth ity of tablet 17:10: daily. [place] [address] Medical Branch traMADoL 50 Yes 50mg Take 50 mg Univers mg tablet 2-06 by mouth ity of 17:10: every 6 [place] [address] (six) Medical hours as Branch needed for Pain (scale 4-6). zolpidem Yes 12.5mg Take 12.5 Un perfecto 12.5 mg CR 2-06 mg by ity of tablet 17:10: mouth at [place] [address] bedtime as Medical needed for Branch Sleep. insulin 0 Yes 30U inject 30 Unive rs aspart 2-06 Units ity of U-100 100 17:10: under the [place] unit/mL (3 33 skin 3 Medical mL) (three) Branch injection times daily before meals. albuterol 0 Yes 2{puff} Inhale 2 U nivers 90 2-06 Puffs ity of mcg/actuati 17:10: every 6 [place] on inhaler 33 (six) Medical hours as Branch needed for Wheezing or Shortness of Breath. baclofen 10 Yes 10mg Take 10 mg Univers mg tablet 2-06 by mouth 3 ity of 17:10: (three) [place] 33 times Medical daily. Branch potassium 0 Yes 10meq Take 10 Univ ers chloride 10 2-06 mEq by ity of mEq CR 17:10: mouth [place] tablet 33 daily. Medical Branch atorvastati 2023-0 Yes 10mg Take 10 mg Univers n 10 mg 2-06 by mouth ity of tablet 17:10: at [place] [address] bedtime. Medical Branch ARIPiprazol Yes 10mg Take 10 mg Univers e 10 mg 2-06 by mouth ity of tablet 17:10: daily. [place] [address] Medical Branch traMADoL 50 Yes 50mg Take 50 mg Univers mg tablet 2-06 by mouth ity of 17:10: every 6 [place] [address] (six) Medical hours as Branch needed for Pain (scale 4-6). zolpidem Yes 12.5mg Take 12.5 Un perfecto 12.5 mg CR 2-06 mg by ity of tablet 17:10: mouth at [place] [address] bedtime as Medical needed for Branch Sleep. insulin Yes 30U inject 30 Unive rs aspart 2-06 Units ity of U-100 100 17:10: under the [place] unit/mL (3 33 skin 3 Medical mL) (three) Branch injection times daily before meals. ALPRAZolam 2022- No 2mg Take 2 mg U nivers (XANAX) 2 - 02-06 by mouth 3 ity of mg tablet 16:17: 00:00 (three) [place] 23 :00 times Medical daily as Branch needed for Sleep. INSULIN NPH 2022- No 45U inject 45 Univers HUM/REG 2- 02-06 Units ity of INSULIN HM 16:17: 00:00 under the [place] (INSULIN 23 :00 skin every Medic al 70/30 SC) morning. Branch INSULIN NPH 2022- No 35U inject 35 Univers HUM/REG - 02-06 Units ity of INSULIN HM 16:17: 00:00 under the [place] (INSULIN 23 :00 skin every Medic al 70/30 SC) evening. Branch nitroglycer 2022- No .4mg Place 0.4 Univers in 0.4 mg 11-22-06 mg under ity o f sublingual 16:17: 00:00 the tongue [place] tablet 23 :00 every 5 Medical (five) Branch minutes as needed for Chest pain. fluticasone 2022- No Use in Uni vers propionate 11-22-06 each ity of 50 16:17: 00:00 nostril [place] mcg/actuati 23 :00 daily. Medica l on nasal Branch spray DULoxetine 2022- No 60mg Take 60 mg Univers 60 mg CDRS 11-22 by mouth 2 it y of 16:17: 00:00 (two) [place] 23 :00 times Medical daily. Branch magnesium 2022- No 2g 2 g, IV Univ ers sulfate in 11-22 Piggyback, it y of water 2 15:30: 16:19 Administer [place] gram/50 mL 00 :00 over 60 Medica l (4 %) Minutes, Branch infusion 2 ONCE, 1 g dose, On 11/22/22 at 0930, Routine atorvastati Yes 10mg 10 mg, Univ ers n (LIPITOR) 11-22 Oral, QHS, it y of tablet 10 03:00: First dose [place] mg 00 on [facility] 11/21/22 at [place] 2100, Until Discontinu ed, Routine metoprolol 0 Yes 12.5mg 12.5 mg, U nivers succinate 11-22 Oral, BID, ity of XL (TOPROL 02:00: First dose [place] XL) tablet 00 on [facility] 12.5 mg 11/21/22 at Branch 2000, Until Discontinu ed, Routine guaiFENesin 2022-0 Yes [id number] 200mg Take 10 mL Univers 100 mg/5 mL 11-2203 by mouth ity of solution 00:00: every 4 [place] 00 (four) Medical hours as Branch needed for Cough. guaiFENesin 3-0 Yes [id number] 200mg Take 10 mL Univers 100 mg/5 mL 11-22 9103 by mouth ity of solution 00:00: every 4 [place] 00 (four) Medical hours as Branch needed for Cough. guaiFENesin 2023-0 Yes [id number] 200mg Take 10 mL Univers 100 mg/5 mL 11-22 9103 by mouth ity of solution 00:00: every 4 [place] 00 (four) Medical hours as Branch needed for Cough. guaiFENesin 2023-0 Yes [id number] 200mg Take 10 mL Univers 100 mg/5 mL 11-22 9103 by mouth ity of solution 00:00: every 4 [place] 00 (four) Medical hours as Branch needed for Cough. guaiFENesin 2022-0 Yes [id number] 200mg Take 10 mL Univers 100 mg/5 mL 2- 9103 by mouth ity of solution 00:00: every 4 [place] 00 (four) Medical hours as Branch needed for Cough. guaiFENesin 2022-0 Yes [id number] 200mg Take 10 mL Univers 100 mg/5 mL 2- 9103 by mouth ity of solution 00:00: every 4 [place] 00 (four) Medical hours as Branch needed for Cough. guaiFENesin 2022-0 Yes [id number] 200mg Take 10 mL Univers 100 mg/5 mL 2 9103 by mouth ity of solution 00:00: every 4 [place] 00 (four) Medical hours as Branch needed for Cough. guaiFENesin 2022-0 Yes [id number] 200mg Take 10 mL Univers 100 mg/5 mL 2 9103 by mouth ity of solution 00:00: every 4 [place] 00 (four) Medical hours as Branch needed for Cough. guaiFENesin 2022-0 Yes [id number] 200mg Take 10 mL Univers 100 mg/5 mL 11-22 9103 by mouth ity of solution 00:00: every 4 [place] 00 (four) Medical hours as Branch needed for Cough. insulin 2022- Yes [id number] 20U inject 20 [facility] detemir 11-22 9103 Units ity of U-100 100 00:00: 05:59 under the [place] unit/mL 00 :00 skin in Medical injection the Branch morning and 20 Units in the evening. Do all this for 30 days. magnesium 2022- Yes [id number] 400mg Take 400 Univers oxide 420 11-22 9103 mg by ity of mg Tab 00:00: 05:59 mouth [place] 00 :00 daily for Medical 30 days. Branch metoprolol 2022- Yes [id number] 12.5mg Take 0.5 [facility] succinate 11-22 9103 tablets by ity of XL 25 mg 24 00:00: 05:59 mouth in [place] hr tablet 00 :00 the Medical morning Branch and 0.5 tablets in the evening. Do all this for 30 days. furosemide 2022- Yes [id number] 40mg Take 1 [facility] 40 mg 11-22 9103 tablet by ity of tablet 00:00: 05:59 mouth in [place] 00 :00 the [facility] Branch for 30 days. insulin 2022- Yes [id number] 20U inject 20 Univers detemir 11-22 9103 Units ity of U-100 100 00:00: 05:59 under [place] unit/mL 00 :00 skin in Medical injection the [place] morning and 20 Units in the evening. Do all this for 30 days. magnesium 2022- Yes [id number] 400mg Take 400 [facility] oxide 420 11-22 9103 mg by ity of mg Tab 00:00: 05:59 mouth [place] 00 :00 daily for Medical 30 days. Branch metoprolol 2022- Yes [id number] 12.5mg Take 0.5 [facility] succinate 11-22 9103 tablets by ity of XL 25 mg 24 00:00: 05:59 mouth in [place] hr tablet 00 :00 the [facility] and 0.5 tablets in the evening. Do all this for 30 days. furosemide 2022- Yes [id number] 40mg Take 1 [facility] 40 mg 11-22 9103 tablet by ity of tablet 00:00: 05:59 mouth in [place] 00 :00 the [facility] for 30 days. insulin 2022- Yes [id number] 20U inject 20 [facility] detemir 11-22 9103 Units ity of U-100 100 00:00: 05:59 under the [place] unit/mL 00 :00 skin in Medical injection the [place] morning and 20 Units in the evening. Do all this for 30 days. magnesium 2022- Yes [id number] 400mg Take 400 [facility] oxide 420 11-22 9103 mg by ity of mg Tab 00:00: 05:59 mouth [place] 00 :00 daily for Medical 30 days. Branch metoprolol 2022- Yes [id number] 12.5mg Take 0.5 [facility] succinate 11-22 9103 tablets by ity of XL 25 mg 24 00:00: 05:59 mouth in [place] hr tablet 00 :00 the Medical morning Branch and 0.5 tablets in the evening. Do all this for 30 days. furosemide 2022- Yes [id number] 40mg Take 1 [facility] 40 mg 11-22 9103 tablet by ity of tablet 00:00: 05:59 mouth in [place] 00 :00 the [facility] for 30 days. insulin 2022- Yes [id number] 20U inject 20 [facility] detemir 11-22 9103 Units ity of U-100 100 00:00: 05:59 under [place] unit/mL 00 :00 skin in Medical injection the [place] morning and 20 Units in the evening. Do all this for 30 days. magnesium 2022- Yes [id number] 400mg Take 400 [facility] oxide 420 11-22 9103 mg by ity of mg Tab 00:00: 05:59 mouth [place] 00 :00 daily for Medical 30 days. Branch metoprolol 2022- Yes [id number] 12.5mg Take 0.5 [facility] succinate 11-22 9103 tablets by ity of XL 25 mg 24 00:00: 05:59 mouth in [place] hr tablet 00 :00 the [facility] and 0.5 tablets in the evening. Do all this for 30 days. furosemide 2022- Yes [id number] 40mg Take 1 [facility] 40 mg 11-22 9103 tablet by ity of tablet 00:00: 05:59 mouth in [place] 00 :00 the [facility] for 30 days. insulin 2022- Yes [id number] 20U inject 20 [facility] detemir 11-22 9103 Units ity of U-100 100 00:00: 05:59 under [place] unit/mL 00 :00 skin in Medical injection the [place] morning and 20 Units in the evening. Do all this for 30 days. magnesium 2022- Yes [id number] 400mg Take 400 [facility] oxide 420 11-22 9103 mg by ity of mg Tab 00:00: 05:59 mouth [place] 00 :00 daily for Medical 30 days. Branch metoprolol 2022- Yes [id number] 12.5mg Take 0.5 [facility] succinate 11-22 9103 tablets by ity of XL 25 mg 24 00:00: 05:59 mouth in [place] hr tablet 00 :00 the [facility] Branch and 0.5 tablets in the evening. Do all this for 30 days. furosemide 2022- Yes [id number] 40mg Take 1 [facility] 40 mg 11-22 9103 tablet by ity of tablet 00:00: 05:59 mouth in [place] 00 :00 the [facility] for 30 days. insulin 2022- Yes [id number] 20U inject 20 [facility] detemir 11-22 9103 Units ity of U-100 100 00:00: 05:59 under [place] unit/mL 00 :00 skin in Medical injection the [place] morning and 20 Units in the evening. Do all this for 30 days. magnesium 2022- Yes [id number] 400mg Take 400 [facility] oxide 420 11-22 9103 mg by ity of mg Tab 00:00: 05:59 mouth [place] 00 :00 daily for Medical 30 days. Branch metoprolol 2022- Yes [id number] 12.5mg Take 0.5 [facility] succinate 11-22 9103 tablets by ity of XL 25 mg 24 00:00: 05:59 mouth in [place] hr tablet 00 :00 the [facility] and 0.5 tablets in the evening. Do all this for 30 days. furosemide 2022- Yes [id number] 40mg Take 1 [facility] 40 mg 11-22 9103 tablet by ity of tablet 00:00: 05:59 mouth in [place] 00 :00 [facility] for 30 days. insulin 2022- Yes [id number] 20U inject 20 [facility] detemir 11-22 9103 Units ity of U-100 100 00:00: 05:59 under the [place] unit/mL 00 :00 skin in Medical injection the [place] morning and 20 Units in the evening. Do all this for 30 days. magnesium 2022- Yes [id number] 400mg Take 400 [facility] oxide 420 11-22 9103 mg by ity of mg Tab 00:00: 05:59 mouth [place] 00 :00 daily for Medical 30 days. Branch metoprolol 2022- Yes [id number] 12.5mg Take 0.5 [facility] succinate 11-22 9103 tablets by ity of XL 25 mg 24 00:00: 05:59 mouth in [place] hr tablet 00 :00 the [facility] and 0.5 tablets in the evening. Do all this for 30 days. furosemide 2022- Yes [id number] 40mg Take 1 [facility] 40 mg 11-22 9103 tablet by ity of tablet 00:00: 05:59 mouth in [place] 00 :00 the [facility] for 30 days. insulin 2022- Yes [id number] 20U inject 20 [facility] detemir 11-22 9103 Units ity of U-100 100 00:00: 05:59 under [place] unit/mL 00 :00 skin in Medical injection the [place] morning and 20 Units in the evening. Do all this for 30 days. insulin 2022- Yes [id number] 20U inject 20 [facility] detemir 11-22 9103 Units ity of U-100 100 00:00: 05:59 under the [place] unit/mL 00 :00 skin in Medical injection the [place] morning and 20 Units in the evening. Do all this for 30 days. magnesium 2022- No [id number] 400mg Take 400 [facility] oxide 420 11-22 9103 mg by ity of mg Tab 00:00: 00:00 mouth [place] 00 :00 daily for Medical 30 days. [place] metoprolol 2022- No [id number] 12.5mg Take 0.5 [facility] succinate 11-22 9103 tablets by ity of XL 25 mg 24 00:00: 00:00 mouth in [place] hr tablet 00 :00 the [facility] and 0.5 tablets in the evening. Do all this for 30 days. furosemide 2022- No [id number] 40mg Take 1 [facility] 40 mg 11-22 9103 tablet by ity of tablet 00:00: 00:00 mouth in [place] 00 :00 the [facility] for 30 days. ipratropium Yes .5mg 0.5 mg, Uni vers (ATROVENT) 2- Inhalation ity of 0.02 % 22:00: , QID, [place] nebulizer 00 First dose Medi compa solution on [facility] 0.5 mg 11/21/22 at 1600, Until Discontinu ed, Routine albuterol 0 Yes 2.5mg 2.5 mg, Univ ers (PROVENTIL) 2-05 Inhalation it y of 2.5 mg /3 22:00: , QID, [place] mL (0.083 00 First dose Medi compa %) on [facility] nebulizer 11/21/22 at solution 1600, 2.5 mg Until Discontinu ed, Routine Sliding 2022-0 Yes Subcutaneo Univ ers Scale 2-05 us, TID ity of Insulin - 18:00: MEALS+HS, [place] as Lispro 00 First dose Medical (HumaLOG) + on [facility] Fsbg 11/21/22 at Testing 1200, Until Discontinu ed, Routine glucagon Yes 1mg 1 mg, Univers (GLUCAGEN 2- Intramuscu ity of DIAGNOSTIC 17:51: lar, PRN, [place] KIT) 18 Starting Medical injection 1 on [facility] mg 11/21/22 at 1151, Until Discontinu ed, MOE, Blood Glucose < or = 70 mg/dL and patient is NPO, unable to swallow or has mental changes. dextrose 50 Yes 25mL 25 mL, Univ ers % in water 2-05 Slow IV ity of (D50W) 17:51: Push, PRN, [place] injection 18 Starting Medica l 25 mL on [facility] 11/21/22 at 1151, Until Discontinu ed, MOE, Blood Glucose < or = 70 mg/dL and patient is NPO, unable to swallow or has mental status changes. perflutren 0 202- No [id number] 3mL 3 mL, IV Univers protein-A 2-05 02-05 Push, ity of microsphr 17:30: 16:25 ONCE, 1 [place] (OPTISON) 00 :00 dose, On Medica l injection 3 [place] 11/21/22 Br anch mL at 1130, Routine predniSONE 2022-0 Yes 40mg 40 mg, Unive rs (DELTASONE) 2-05 Oral, ity of tablet 40 15:00: DAILY, [place] mg 00 First dose Medical on [facility] 11/21/22 at 0900, Until Discontinu ed, Routine ARIPiprazol Yes 10mg 10 mg, Univ ers e (ABILIFY) 2- Oral, ity of tablet 10 15:00: DAILY, [place] mg 00 First dose Medical on [facility] 11/21/22 at 0900, Until Discontinu ed, Routine KCL 2022- No 10meq 10 mEq, Univers (KLOR-CON 11-21 Oral, ity of M10) tablet 15:00: 14:46 DAILY, [place] as 10 mEq 00 :15 First dose Medical on [facility] 11/21/22 at 0900, Until Discontinu ed insulin Yes 20U 20 Units, Unive rs detemir 11-21 Subcutaneo ity of U-100 14:00: us, BID, [place] (LEVEMIR 00 First dose Medic al U-100 on [facility] INSULIN) 11/21/22 at injection 0800, 20 Units Until Discontinu ed, Routine
Restricte d - To be dispensed only to: Continuati on from home baclofen Yes 10mg 10 mg, Univers (LIORESAL) - Oral, TID, ity of tablet 10 14:00: First dose [place] mg 00 on [facility] 11/21/22 at Branch 0800, Until Discontinu ed, Routine ipratropium 2022- No 3mL 3 mL, Univ ers -albuteroL 11-21- Inhalation it y of (DUONEB) 14:00: 20:23 , QID, [place] 0.5 mg-3 00 :23 First dose Medic al mg(2.5 mg on [facility] base)/3 mL 11/21/22 at nebulizer 0800, solution 3 Until mL Discontinu ed, Routine insulin 2022- No 30U 30 Units, Univ ers lispro - 02- Subcutaneo ity of (human) 14:00: 17:51 us, TID [place] (HumaLOG 00 :03 MEALS, Medical U-100) First dose Branch injection on Sun 30 Units 11/21/22 at 0800, Until Discontinu ed zolpidem Yes 10mg 10 mg, Univers (AMBIEN) 2-05 Oral, ity of tablet 10 04:26: QHSPRN, [place] mg 14 Starting Medical on [facility] 11/20/22 at 2226, Until Discontinu ed, Insomnia traMADoL Yes 50mg 50 mg, Univers (ULTRAM) 205 Oral, ity of tablet 50 04:26: Q6HPRN, [place] mg 00 Starting Medical on [facility] 11/20/22 at 2226, Until Discontinu ed, Routine, Pain (scale 4-6) furosemide 0 Yes 40mg 40 mg, Unive rs (LASIX) 205 Slow IV ity of injection 02:00: Push, [place] 40 mg 00 Q12H, Medical First dose Branch on [facility] 11/20/22 at 2000, Until Discontinu ed, Routine guaiFENesin Yes 200mg 200 mg, Un perfecto 100 mg/5 mL 11-21 Oral, ity of solution 01:47: Q4HPRN, [place] 200 mg 45 Starting Medical on [facility] 11/20/22 at 1947, Until Discontinu ed, Routine, Cough enoxaparin Yes 40mg 40 mg, Unive rs (LOVENOX) 11-20 Subcutaneo ity of injection 23:00: us, DAILY, [place] 40 mg 00 First dose Medical on [facility] 11/20/22 at 1700, Until Discontinu ed, Routine proMETHazin 2022- No 25mg 25 mg, IV Univers e 11-20 Piggyback, ity of (PHENERGAN) 20:30: 20:18 ONCE, 1 [place] 25 mg in 00 :00 dose, On Medical NaCl 0.9% [facility] 11/20/22 Bran ch (NS) 50 mL at 1430, IV MOE piggyback ondansetron Yes 4mg 4 mg, Slow Univers (ZOFRAN 04 IV Push, ity of (PF)) 20:27: Q6HPRN, [place] injection 4 24 Starting Medi compa mg on [facility] 11/20/22 at 1427, Until Discontinu ed, Routine, Nausea and Vomiting (N/V) acetaminoph 0 2022- No 1{tbl} 1 tablet, Univers en-codeine 2-04 02-06 Oral, ity of (TYLENOL 20:27: 20:26 Q6HPRN, [place] #3) 300-30 20 :20 Starting Medic al mg tablet 1 on Sat Branch tablet 11/20/22 at 1427, Until 11/22/22 at 1426, Routine, Pain (scale 4-6) acetaminoph Yes 650mg 650 mg, Un perfecto en 11-20 Oral, ity of (TYLENOL) 20:27: Q6HPRN, [place] tablet 650 16 Starting Medic al mg on Sat Branch 11/20/22 at 1427, Until Discontinu ed, Routine, Pain (scale 1-3) ondansetron 2022- No 4mg 4 mg, Slow Univers (ZOFRAN 11-20 IV Push, ity of (PF)) 19:45: 19:40 ONCE, 1 [place] injection 4 00 :00 dose, On Medi compa mg 11/20/22 Branch at 1345, MOE furosemide 2022- No 40mg 40 mg, IV U nivers (LASIX) 11-20 Push, ity of injection 19:30: 19:35 ONCE, 1 [place] 40 mg 00 :00 dose, On Medical 11/20/22 Branch at 1330, MOE ondansetron 2022- No 4mg 4 mg, Slow Univers (ZOFRAN 11-20 IV Push, ity of (PF)) 19:15: 19:35 ONCE, 1 [place] injection 4 00 :00 dose, On Medi compa mg 11/20/22 Branch at 1315, MOE iopamidol 0 202- No [id number] 93mL 93 mL, Univers (ISOVUE 11-20 Intravenou ity o f 370-500 mL) 19:08: 19:15 s, ONCE, 1 [place] injection 00 :00 dose, On Medica l 93 mL 11/20/22 Branch at 1315, Routine aspirin 81 Yes 81mg QD Take [address] [facility] EC 1-05 by mouth [facility] tablet 23:19: daily. [address] ipratropium Yes 3mL Take [address] [facility] -albuteroL 1-05 by [facility] (DUO-NEB) 23:19: nebulizati Me dical 0.5 mg-3 02 on every 6 Cente r mg(2.5 mg (six) base)/3 mL hours as nebulizer needed for solution Wheezing. insulin Yes 45U QD Inject 45 [facility] glargine 1-05 Units [facility] (LANTUS, 23:19: subcutaneo Med ical SEMGLEE) 02 usly every Cente r 100 unit/mL morning injection Use as directed . magnesium Yes 400mg QD Take [address] [facility] [facility] oxide 1-05 mg by [facility] (MAG-OX) 23:19: mouth Medical 400 mg 02 daily. Center (241.3 mg magnesium) tablet polyethylen Yes 17g QD Take [address] e glycol 1-05 by mouth [facility] (GLYCOLAX) 23:19: daily. Medic al 17 gram 02 Center packet nicotine Yes 1{patch Q24H Place [address] [facility] (NICODERM 1-05 } patch onto [facility] CQ) 14 23:19: the skin Medical mg/24 hr 02 daily. Center patch GlucaGen Yes QD Inject [facility] HypoKit 1 1-02 subcutaneo [facility] mg SolR 00:00: usly Medical 00 daily. Center ondansetron Yes Take by [facility] (ZOFRAN-ODT 1-02 mouth. [facility] ) 4 MG 00:00: Medical disintegrat 00 Center ing tablet ARIPiprazol Yes 10mg QD Take [address] [facility] e (ABILIFY) 1-01 by mouth [facility] 10 MG 00:00: daily. Medical tablet 00 Center carvediloL Yes 3.125mg Q.5D Take 3.[address] [facility] (COREG) 1-01 mg by [facility] 3.125 MG 00:00: mouth 2 Medica l tablet 00 (two) Center times daily. glipiZIDE 2021-10 Yes 10mg Q.5D Take [address] (GLUCOTROL) 2-30 by mouth 2 [place] kes 10 MG 00:00: (two) Medical tablet 00 times Center daily. baclofen 2021-10 Yes 10mg Q.5D Take [address] [facility] (LIORESAL) 2-29 by mouth 2 [place] 10 MG 00:00: (two) Medical tablet 00 times Center daily. Lantus 2021-10 Yes 25U QD Inject [address] [facility] Solostar 2-29 Units [facility] U-100 00:00: subcutaneo Medica l Insulin 100 00 usly Center unit/mL (3 nightly . mL) In potassium 2021-10 Yes 20meq QD Take [address] [facility] chloride SA 2-29 mEq by [facility] (K-DUR,KLOR 00:00: mouth Medic al -CON-M) 20 00 daily. Center MEQ tablet ProAir 2021-10 Yes SMARTSIG:V [facility] RespiClick 2-25 ia Inhaler S[place] es 90 00:00: Medical mcg/actuati 00 Center on AePB atorvastati 2021-10 Yes 20mg QD Take [address] n (LIPITOR) 2-23 by mouth Luke [facility] 20 MG 00:00: daily. Medical tablet 00 Center famotidine 2021-10 Yes 20mg Q.5D Take [address] (PEPCID) 20 2-22 by mouth 2 [place] kes MG tablet 00:00: (two) Medical 00 times Center daily. traMADoL 2021-10 Yes 50mg Take [address] [facility] (ULTRAM) 50 2-22 by mouth 4 [place] kes mg tablet 00:00: (four) Medica l 00 times Center daily as needed. escitalopra 2021-10 Yes 20mg QD Take [address] [facility] m oxalate 2-15 by mouth [facility] (LEXAPRO) 00:00: daily. Medica l 20 MG 00 Center tablet furosemide 2021-10 Yes 40mg Q.5D Take [address] (LASIX) 40 2-15 by mouth 2 [place] MG tablet 00:00: (two) Medical 00 times Center daily. mirtazapine 2021-10 Yes Take by [facility] (REMERON) 2-15 mouth. [facility] 15 MG 00:00: Medical tablet 00 Center insulin 2021-[address] [facility] aspart 2-13 subcutaneo [facility] U-100 00:00: usly. Medical (NovoLOG) 00 Center 100 unit/mL (3 mL) In atorvastati 2021-10 Yes 10mg QD Take [address] n (LIPITOR) 2-08 by mouth Luke s 10 MG 00:00: daily. Medical tablet 00 Center clopidogreL 2021-10 Yes 75mg QD Take [address] [facility] (PLAVIX) 75 2-08 by mouth Luke [facility] mg tablet 00:00: daily. Medica l 00 Center gabapentin 2021-10 Yes 300mg [id number] Take [address] (NEURONTIN) 2-08 [id number] mg by L ukes 300 MG 00:00: 3D mouth 3 Medical capsule 00 (three) Center times daily. DULoxetine 2021-10 Yes 60mg Q.5D Take [address] (CYMBALTA) 2-07 by mouth 2 [place] 60 MG 00:00: (two) Medical capsule 00 times Center daily. metoprolol 2021-10 Yes 25mg QD Take [address] succinate 0-07 by mouth [facility] (TOPROL-XL) 00:00: daily. Medi compa 25 MG 24 hr 00 Center tablet aspirin 81 2020- No [id number] 81mg Take 1 Univers mg chewable 5-21 06-21 tablet by it y of tablet 00:00: 04:59 mouth [place] 00 :00 daily with Medical breakfast Branch for 30 days. ALPRAZolam Yes 2mg Take 2 mg Un perfecto (XANAX) 2 5-20 by mouth 3 ity of mg tablet 16:58: (three) [place] 47 times Medical daily as Branch needed for Sleep. INSULIN NPH Yes 45U inject 45 U nivers HUM/REG 5-20 Units ity of INSULIN HM 16:58: under the [place] (INSULIN 47 skin every Medic al 70/30 SC) morning. Branch INSULIN NPH Yes 35U inject 35 U nivers HUM/REG 5-20 Units ity of INSULIN HM 16:58: under the [place] (INSULIN 47 skin every Medic al 70/30 SC) evening. Branch nitroglycer Yes .4mg Place 0.4 U nivers in 0.4 mg 5-20 mg under ity of sublingual 16:58: the tongue [place] tablet 47 every 5 Medical (five) Branch minutes as needed for Chest pain. baclofen 10 Yes 10mg Take 10 mg Univers mg tablet 5-20 by mouth 3 ity of 16:58: (three) [place] [id number] times Medical daily. Branch potassium Yes 10meq Take 10 Univ ers chloride 10 5-20 mEq by ity of mEq CR 16:58: mouth [place] tablet 47 daily. Medical Branch atorvastati Yes 10mg Take 10 mg Univers n (LIPITOR) 5-20 by mouth ity of 10 mg 16:58: at [place] [id number] bedtime. Medical Branch fluticasone Yes Use in Univ ers propionate 5-20 each ity of (FLONASE 16:58: nostril [place] ALLERGY daily. Medical RELIEF) 50 Branch mcg/actuati on nasal spray DULoxetine Yes 60mg Take 60 mg U nivers 60 mg CDRS 5-20 by mouth 2 ity of 16:58: (two) [place] [address] times Medical daily. Branch ARIPiprazol Yes 10mg Take 10 mg Univers e 10 mg 5-20 by mouth ity of tablet 16:58: daily. [place] [address] Medical Branch traMADoL 50 Yes 50mg Take 50 mg Univers mg tablet 5-20 by mouth ity of 16:58: every 6 [place] [address] (six) Medical hours as Branch needed for Pain (scale 4-6). zolpidem Yes 12.5mg Take 12.5 Un perfecto 12.5 mg CR 5-20 mg by ity of tablet 16:58: mouth at [place] [address] bedtime as Medical needed for Branch Sleep. insulin Yes 30U inject 30 Unive rs aspart 5-20 Units ity of U-100 16:58: under the [place] (NOVOLOG 47 skin 3 Medical FLEXPEN (three) Branch U-100 times INSULIN) daily 100 unit/mL before (3 mL) meals. injection albuterol Yes 2{puff} Inhale 2 U nivers (PROAIR 5-20 Puffs ity of HFA) 90 16:58: every 6 [place] mcg/actuati (six) Medical on inhaler hours as Branc h needed for Wheezing or Shortness of Breath. sulfur 1- No [id number] 5mL 5 mL, Unive rs hexafluorid 5-20 05-20 Intravenou i ty of e microsphr 16:30: 16:45 s, ONCE, 1 [place] (LUMASON) 00 :00 dose, [place] Medic al injection 5 03/05/21 at Br anch mL 1145, Routine
[employer] member approving Restricted medication : FRIDA SMITH DULoxetine Yes 60mg 60 mg, Unive rs (CYMBALTA) 5-20 Oral, ity of capsule 60 14:00: DAILY, [place] mg 00 First dose Medical on [place] Branch 03/05/21 at 0900, Until Discontinu ed ARIPiprazol Yes 10mg 10 mg, Univ ers e (ABILIFY) 5-20 Oral, ity of tablet 10 14:00: DAILY, [place] mg 00 First dose Medical on [place] [facility] 03/05/21 at 0900, Until Discontinu ed, Routine insulin 2020- No 10U 10 Units, Univ ers lispro 5-20 05-20 Subcutaneo ity of (human) 10:45: 09:37 us, ONCE, [place] (HumaLOG 00 :00 1 dose, Medical U-100) [place] Branch injection 03/05/21 at 10 Units 0545, Routine insulin 2020- No 10U 10 Units, Univ ers glargine 5-20 05-20 Subcutaneo ity of (LANTUS 10:45: 09:37 us, ONCE, [place] U-100) 00 :00 1 dose, Medical injection [place] Branch 10 Units 03/05/21 at 0545, Routine metoprolol Yes 25mg 25 mg, Unive rs succinate 5-20 Oral, BID, ity of XL (TOPROL 07:15: First dose [place] XL) tablet 00 on [place] Medical 25 mg 03/05/21 at Branch 0215, Until Discontinu ed, MOE aspirin 0 Yes 81mg 81 mg, Univers chewable 5-20 Oral, QAM ity of tablet 81 07:00: WITH [place] mg 00 BREAKFAST, Medical First dose Branch on [place] 03/05/21 at 0200, Until Discontinu ed, Routine furosemide Yes 20mg 20 mg, IV Un perfecto (LASIX) 5-20 Push, ity of injection 07:00: DAILY, [place] 20 mg 00 First dose Medical on [place] Branch 03/05/21 at 0200, Until Discontinu ed, MOE SITagliptin 2020-0 Yes 100mg 100 mg, Un perfecto (JANUVIA) 5-20 Oral, ity of tablet 100 07:00: DAILY, [place] mg 00 First dose Medical on [place] [facility] 03/05/21 at 0200, Until Discontinu ed, Routine glipiZIDE 0 Yes 10mg 10 mg, Univer s (GLUCOTROL) 5-20 Oral, ity of tablet 10 07:00: BIDAC, [place] mg 00 First dose Medical on [place] [facility] 03/05/21 at 0200, Until Discontinu ed, Routine Sliding 2020-0 Yes Subcutaneo Univ ers Scale 5-20 us, Q4H, ity of Insulin - 07:00: First dose [place] Lispro 00 on [place] [facility] (HumaLOG) + 03/05/21 at [facility] Fsbg 0200, Testing Until Discontinu ed, Routine atorvastati Yes 10mg 10 mg, Univ ers n (LIPITOR) 5-20 Oral, QHS, it y of tablet 10 02:00: First dose [place] mg 00 on [facility] Medical 03/04/21 at Branch 2100, Until Discontinu ed, Routine insulin 2020- Yes 30U 30 Units, Unive rs glargine 5-20 Subcutaneo ity o f (LANTUS 02:00: us, QHS, [place] U-100) 00 First dose Medical injection on Tue Branch 30 Units 03/04/21 at 2100, Until Discontinu ed, Routine Sliding 0 2020- No Subcutaneo Uni vers Scale 5-20 05-20 us, Q4H, ity of Insulin - 01:00: 06:48 First dose [place] Lispro 00 :49 (after Medical (HumaLOG) + last Branch Fsbg modificati Testing on) on Tue03/04/21 at 2000, Until Discontinu ed, Routine albuterol 0 Yes 2{puff} 2 Puff, Un perfecto (VENTOLIN) 5-20 Inhalation ity of inhaler 2 00:12: , Q6HPRN, [place] as Puff 21 Starting Medical [facility] Branch 03/04/21 at 1912, Until Discontinu ed, Routine, Wheezing, Shortness of Breath
Is this order for a patient with suspected or confirmed COVID-19 infection? No
Does this order have Pulmonary/ Critical Care approval? No metoprolol 2020- No [id number] 25mg Take 1 [facility] succinate 520 06-20 tablet by ity of XL 25 mg 24 00:00: 04:59 mouth 2 [place] hr tablet 00 :00 (two) Medical times Branch daily for 30 days. zolpidem Yes 10mg 10 mg, Univers (AMBIEN) 03-04 Oral, ity of tablet 10 23:24: QHSPRN, [place] mg 29 Starting Medical Tue Branch 03/04/21 at 1824, Until Discontinu ed, Routine, Insomnia divalproex 2020- No 500mg Take 500 U nivers ER 03-04 mg by ity of (DEPAKOTE 22:04: 00:00 mouth 2 [place] ER) 500 mg 41 :00 (two) Medical 24 hr times Branch tablet daily. Indication s: 1500mg in a.m., 1000mg in p.m. enoxaparin Yes 30mg 30 mg, Unive rs (LOVENOX) 03-04 Subcutaneo ity of injection 22:00: us, DAILY, [place] 30 mg 00 First dose Medical on Tue Branch 03/04/21 at 1700, Until Discontinu ed, Routine insulin Yes [id number] 12U 12 Units, Univers regular 03-04 Subcutaneo ity of human 22:00: us, BID [place] (HUMULIN R) 00 MEALS, Medica l injection First dose Bran ch 12 Units on Tue03/04/21 at 1700, Until Discontinu ed, Routine levalbutero Yes .63mg 0.63 mg, U nivers l (XOPENEX) 03-04 Inhalation it y of nebulizer 17:00: , QID, [place] solution 00 First dose Medic al 0.63 mg on Tue Branch 03/04/21 at 1200, Until Discontinu ed, Routine
Approved by: [employer] PROVIDER Sliding 2020- No Subcutaneo Uni vers Scale 03-04 0519 us, Q4H, ity of Insulin - 17:00: 21:57 First dose [place] Lispro 00 :44 on Tue Medical (HumaLOG) + 03/04/21 at Br anch Fsbg 1200, Testing Until Discontinu ed, Routine methylpredn 2020- No 125mg 125 mg, U nivers isolone sod 03-04 Intravenou i ty of succ 17:00: 15:46 s, Q6H, [place] (SOLU-MEDRO 00 :32 First dose Me dical L) on Wed Branch injection 03/04/21 at 125 mg 1200, Until Discontinu ed, Routine glucagon Yes 1mg 1 mg, Univers (GLUCAGEN 03-04 Intramuscu ity of DIAGNOSTIC 15:51: [place], PRN, [place] KIT) 49 Starting Medical injection 1 Wed Branch mg 03/04/21 at 1051, Until Discontinu ed, MOE, Blood Glucose < or = 70 mg/dL and patient is unable to swallow or has mental changes. dextrose 50 Yes 25mL 25 mL, Univ ers % in water 03-04 Slow IV ity of (D50W) 15:51: Push, PRN, [place] injection 49 Starting Medica l 25 mL Wed Branch 03/04/21 at 1051, Until Discontinu ed, MOE, Blood Glucose < or = 70 mg/dL and patient is unable to swallow or has mental status changes. acetaminoph Yes 650mg 650 mg, Un perfecto en 03-04 Oral, ity of (TYLENOL) 15:51: Q6HPRN, [place] tablet 650 12 Starting Medic al mg Wed Branch 03/04/21 at 1051, Until Discontinu ed, Routine, Pain (scale 1-3) bumetanide 2020- No [id number] 1.25mg 1.25 mg, Univers (BUMEX) 03-04 Slow IV ity of injection 15:30: 14:25 Push, [place] 1.25 mg 00 :00 ONCE, 1 Medical dose, [place] 03/04/21 at 1030, STAT midazolam No Route: IV, Ne moria (ANES) 07-09 Drug form: l 17:51: SOLN Dwight 00 ONCE, Stop date: 07/09/20 12:51:00 CDT fentaNYL 2020-0 No Route: IV, Mem oria (ANES) 9- Drug form: l 17:51: INJ, ONCE, Nayan 00 Stop date: 07/09/20 12:51:00 CDT lidocaine 2020-0 No Route: IV, Me moria (ANES) 9- Drug form: l 17:51: INJ, ONCE, Dwight 00 Stop date: 07/09/20 12:51:00 CDT midazolam 2020-0 No Route: IV, Me moria (ANES) 9- Drug form: l 17:51: SOLN, Dwight ONCE, Stop date: 07/09/20 12:51:00 CDT fentaNYL 2020-0 No Route: IV, Mem oria (ANES) 9- Drug form: l 17:51: INJ, ONCE, Dwight 00 Stop date: 07/09/20 12:51:00 CDT lidocaine 2020-0 No Route: IV, Me moria (ANES) 9- Drug form: l 17:51: INJ, ONCE, Dwight 00 Stop date: 07/09/20 12:51:00 CDT midazolam 2020-0 No Route: IV, Me moria (ANES) 9- Drug form: l 17:51: SOLN, Dwight ONCE, Stop date: 07/09/20 12:51:00 CDT fentaNYL 2020-0 No Route: IV, Mem oria (ANES) 9- Drug form: l 17:51: INJ, ONCE, Nayan 00 Stop date: 07/09/20 12:51:00 CDT lidocaine 2020-0 No Route: IV, Me moria (ANES) 9- Drug form: l 17:51: INJ, ONCE, Dwight 00 Stop date: 07/09/20 12:51:00 CDT midazolam 2020-0 No Route: IV, Me moria (ANES) 9- Drug form: l 17:51: SOLN, Nayan ONCE, Stop date: 07/09/20 12:51:00 CDT fentaNYL 2020-0 No Route: IV, Mem oria (ANES) 9- Drug form: l 17:51: INJ, ONCE, Nayan 00 Stop date: 07/09/20 12:51:00 CDT lidocaine 2020-0 No Route: IV, Me moria (ANES) 07-09 Drug form: l 17:51: INJ, ONCE, Stop date: 07/09/20 12:51:00 CDT propofol 2020-0 No Route: IV, Mem oria (ANES) 10 07-09 Drug form: l mg 17:31: INJ, Start date: 07/09/20 12:31:00 CDT, Stop date: 07/09/20 13:31:00 CDT propofol 2020-0 No Route: IV, Mem oria (ANES) 10 07-09 Drug form: l mg 17:31: INJ, Start date: 07/09/20 12:31:00 CDT, Stop date: 07/09/20 13:31:00 CDT propofol 2020-0 No Route: IV, Mem oria (ANES) 10 07-09 Drug form: l mg 17:31: INJ, Start date: 07/09/20 12:31:00 CDT, Stop date: 07/09/20 13:31:00 CDT propofol 2020-0 No Route: IV, Mem oria (ANES) 10 07-09 Drug form: l mg 17:31: INJ, Start date: 07/09/20 12:31:00 CDT, Stop date: 07/09/20 13:31:00 CDT Lactated 2020-0 No Route: IV, Mem oria Ringers 9-23 Total l Injection 17:16: Volume: Lindsay nn IV (ANES) 00 1,000, 1000 mL Start date: 07/09/20 12:16:00 CDT, Stop date: 07/09/20 13:16:00 CDT Lactated 2020-0 No Route: IV, Mem oria Ringers 9-23 Total l Injection 17:16: Volume: Lindsay nn IV (ANES) 00 1,000, 1000 mL Start date: 07/09/20 12:16:00 CDT, Stop date: 07/09/20 13:16:00 CDT Lactated 2020-0 No Route: IV, Mem oria Ringers 9-23 Total l Injection 17:16: Volume: Lindsay nn IV (ANES) 00 1,000, 1000 mL Start date: 07/09/20 12:16:00 CDT, Stop date: 07/09/20 13:16:00 CDT Lactated No Route: IV, Mem oria Ringers 07-09 Total l Injection 17:16: Volume: Lindsay nn IV (ANES) 00 1,000, 1000 mL Start date: 07/09/20 12:16:00 CDT, Stop date: 07/09/20 13:16:00 CDT Calcium 2019- No 1,000 mL, Memor ia Chloride 07-09 Rate: 75 l 0.0014 16:56: ml/hr, Nayan MEQ/ML / 00 Infuse Potassium over: 13.3 Chloride hr, Route: 0.004 IV, Dosing MEQ/ML / Weight Sodium 116.364 Chloride kg, Total 0.103 Volume: MEQ/ML / 1,000, Sodium Start Lactate date: 0.028 07/09/20 MEQ/ML 11:56:00 Injectable CDT, Solution Duration: 30 day, Stop date: 08/08/20 11:55:00 CDT, 2.38, m2, 0 Albuterol No Notes: SEE Me moria 0.83 MG/ML 07-09 RT l Inhalant 16:56: DOCUMENTAT Her adkins Solution 00 ION (Same as: Proventil) Insulin No Notes: Memoria Lispro 07-09 (Same as: l 16:56: Humalog) Nayan 00 Roll in palms of hands gently; Do not shake vigorously . WASTE: F/P - Black; E - Municipal Trash Bin Stable for 28 days at room temperatur e. Expires in days from ____Date Calcium 2019-0 No 1,000 mL, Memor ia Chloride 07-09 Rate: 75 l 0.0014 16:56: ml/hr, Dwight MEQ/ML / 00 Infuse Potassium over: 13.3 Chloride hr, Route: 0.004 IV, Dosing MEQ/ML / Weight Sodium 116.364 Chloride kg, Total 0.103 Volume: MEQ/ML / 1,000, Sodium Start Lactate date: 0.028 07/09/20 MEQ/ML 11:56:00 Injectable CDT, Solution Duration: 30 day, Stop date: 08/08/20 11:55:00 CDT, 2.38, m2, 0 Albuterol 2019-0 No Notes: SEE Me moria 0.83 MG/ML 9-23 RT l Inhalant 16:56: DOCUMENTAT Her adkins Solution 00 ION (Same as: Proventil) Insulin No Notes: Memoria Lispro 9-23 (Same as: l 16:56: Humalog) Dwight 00 Roll in palms of hands gently; Do not shake vigorously . WASTE: F/P - Black; E - Municipal Trash Bin Stable for 28 days at room temperatur e. Expires in days from ____Date Calcium 2019-0 No 1,000 mL, Memor ia Chloride - Rate: 75 l 0.0014 16:56: ml/hr, Nayan MEQ/ML / 00 Infuse Potassium over: 13.3 Chloride hr, Route: 0.004 IV, Dosing MEQ/ML / Weight Sodium 116.364 Chloride kg, Total 0.103 Volume: MEQ/ML / 1,000, Sodium Start Lactate date: 0.028 07/09/20 MEQ/ML 11:56:00 Injectable CDT, Solution Duration: 30 day, Stop date: 08/08/20 11:55:00 CDT, 2.38, m2, 0 Albuterol No Notes: SEE Me moria 0.83 MG/ML -23 RT l Inhalant 16:56: DOCUMENTAT Her adkins Solution 00 ION (Same as: Proventil) Insulin No Notes: Memoria Lispro 9-23 (Same as: l 16:56: Humalog) Dwight 00 Roll in palms of hands gently; Do not shake vigorously . WASTE: F/P - Black; E - Municipal Trash Bin Stable for 28 days at room temperatur e. Expires in days from ____Date Calcium 2019-0 No 1,000 mL, Memor ia Chloride 9-23 Rate: 75 l 0.0014 16:56: ml/hr, Nayan MEQ/ML / 00 Infuse Potassium over: 13.3 Chloride hr, Route: 0.004 IV, Dosing MEQ/ML / Weight Sodium 116.364 Chloride kg, Total 0.103 Volume: MEQ/ML / 1,000, Sodium Start Lactate date: 0.028 07/09/20 MEQ/ML 11:56:00 Injectable CDT, Solution Duration: 30 day, Stop date: 08/08/20 11:55:00 CDT, 2.38, m2, 0 Albuterol No Notes: SEE Me moria 0.83 MG/ML - RT l Inhalant 16:56: DOCUMENTAT Her adkins Solution 00 ION (Same as: Proventil) Insulin No Notes: Memoria Lispro 23 (Same as: l 16:56: Humalog) Nayan 00 Roll in palms of hands gently; Do not shake vigorously . WASTE: F/P - Black; E - Municipal Trash Bin Stable for 28 days at room temperatur e. Expires in days from ____Date Lactulose Yes 133.3333 Vance valerie 667 MG/ML 8-11 gm = 200 l Oral 14:16: mL, PO, Dwight Solution 00 ONCE, drink at 4pm, two days before procedure, # 200 mL, 0 Refill(s), Pharmacy: [facility] [place], 170.18, cm, 05/13/20 16:19:00 CDT, Height, 116.364, kg, 05/13/20 16:19:00 CDT, Weight GoLYTELY 0 No 240 mL, Memori a oral powder 8-11 PO, l for 14:16: Q10Min, Dwight reconstitut 00 start at ion 6pm, day before procedure, drink over 2 hours., X 1 day, # 1 ea, 0 Refill(s), Pharmacy: [facility], 170.18, cm, 05/13/20 16:19:00 CDT, Height, 116.364, kg, 05/13/20 16:19:00 CDT, Weight Lactulose Yes 133.3333 Vance valerie 667 MG/ML 8-11 gm = 200 l Oral 14:16: mL, PO, Nayan Solution 00 ONCE, drink at 4pm, two days before procedure, # 200 mL, 0 Refill(s), Pharmacy: [facility], 170.18, cm, 05/13/20 16:19:00 CDT, Height, 116.364, kg, 05/13/20 16:19:00 CDT, Weight GoLYTELY 2020-0 No 240 mL, Memori a oral powder 8-11 PO, l for 14:16: Q10Min, Dwight reconstitut 00 start at ion 6pm, day before procedure, drink over 2 hours., X 1 day, # 1 ea, 0 Refill(s), Pharmacy: [facility], 170.18, cm, 05/13/20 16:19:00 CDT, Height, 116.364, kg, 05/13/20 16:19:00 CDT, Weight Lactulose 2020-0 Yes 133.3333 Vance valerie 667 MG/ML 8-11 gm = 200 l Oral 14:16: mL, PO, Nayan Solution 00 ONCE, drink at 4pm, two days before procedure, # 200 mL, 0 Refill(s), Pharmacy: [facility], 170.18, cm, 05/13/20 16:19:00 CDT, Height, 116.364, kg, 05/13/20 16:19:00 CDT, Weight GoLYTELY 2020-0 No 240 mL, Memori a oral powder 8-11 PO, l for 14:16: Q10Min, Nayan reconstitut 00 start at ion 6pm, day before procedure, drink over 2 hours., X 1 day, # 1 ea, 0 Refill(s), Pharmacy: [facility], 170.18, cm, 05/13/20 16:19:00 CDT, Height, 116.364, kg, 05/13/20 16:19:00 CDT, Weight Lactulose 2020-0 Yes 133.3333 Vance valerie 667 MG/ML 8-11 gm = 200 l Oral 14:16: mL, PO, Nayan Solution 00 ONCE, drink at 4pm, two days before procedure, # 200 mL, 0 Refill(s), Pharmacy: [facility], 170.18, cm, 05/13/20 16:19:00 CDT, Height, 116.364, kg, 05/13/20 16:19:00 CDT, Weight GoLYTELY 2020-0 No 240 mL, Memori a oral powder 8-11 PO, l for 14:16: Q10Min, Dwight reconstitut 00 start at ion 6pm, day before procedure, drink over 2 hours., X 1 day, # 1 ea, 0 Refill(s), Pharmacy: [facility], 170.18, cm, 05/13/20 16:19:00 CDT, Height, 116.364, kg, 05/13/20 16:19:00 CDT, Weight Lactulose 2020-0 Yes 133.3333 Vance valerie 667 MG/ML 7-24 gm = 200 l Oral 19:31: mL, PO, Nayan Solution 00 ONCE, drink at 4pm, two days before procedure, # 200 mL, 0 Refill(s), Pharmacy: [facility], 175.26, cm, 04/10/20 10:21:00 CDT, Height, 123.1, kg, 04/10/20 10:21:00 CDT, Weight GoLYTELY 2020-0 Yes 240 mL, Memori a oral powder 7-24 PO, l for 19:31: Q10Min, Dwight reconstitut 00 start at ion 6pm, day before procedure, drink over 2 hours., X 1 day, # 1 ea, 0 Refill(s), Pharmacy: [facility], 175.26, cm, 04/10/20 10:21:00 CDT, Height, 123.1, kg, 04/10/20 10:21:00 CDT, Weight Lactulose 2019-0 Yes 133.3333 Vance valerie 667 MG/ML 7-24 gm = 200 l Oral 19:31: mL, PO, Nayan Solution 00 ONCE, drink at 4pm, two days before procedure, # 200 mL, 0 Refill(s), Pharmacy: [facility], 175.26, cm, 04/10/20 10:21:00 CDT, Height, 123.1, kg, 04/10/20 10:21:00 CDT, Weight GoLYTELY 2020-0 Yes 240 mL, Memori a oral powder 7-24 PO, l for 19:31: Q10Min, Dwight reconstitut 00 start at ion 6pm, day before procedure, drink over 2 hours., X 1 day, # 1 ea, 0 Refill(s), Pharmacy: [facility], 175.26, cm, 04/10/20 10:21:00 CDT, Height, 123.1, kg, 04/10/20 10:21:00 CDT, Weight Lactulose 2020-0 Yes 133.3333 Vance valerie 667 MG/ML 7-24 gm = 200 l Oral 19:31: mL, PO, Dwight Solution 00 ONCE, drink at 4pm, two days before procedure, # 200 mL, 0 Refill(s), Pharmacy: [facility], 175.26, cm, 04/10/20 10:21:00 CDT, Height, 123.1, kg, 04/10/20 10:21:00 CDT, Weight GoLYTELY 2020-0 Yes 240 mL, Memori a oral powder 7-24 PO, l for 19:31: Q10Min, Dwight reconstitut 00 start at ion 6pm, day before procedure, drink over 2 hours., X 1 day, # 1 ea, 0 Refill(s), Pharmacy: [facility], 175.26, cm, 04/10/20 10:21:00 CDT, Height, 123.1, kg, 04/10/20 10:21:00 CDT, Weight Lactulose 2020-0 Yes 133.3333 Vance valerie 667 MG/ML 7-24 gm = 200 l Oral 19:31: mL, PO, Nayan Solution 00 ONCE, drink at 4pm, two days before procedure, # 200 mL, 0 Refill(s), Pharmacy: [facility], 175.26, cm, 04/10/20 10:21:00 CDT, Height, 123.1, kg, 04/10/20 10:21:00 CDT, Weight GoLYTELY 2020-0 Yes 240 mL, Memori a oral powder 7-24 PO, l for 19:31: Q10Min, Nayan reconstitut 00 start at ion 6pm, day before procedure, drink over 2 hours., X 1 day, # 1 ea, 0 Refill(s), Pharmacy: [facility], 175.26, cm, 04/10/20 10:21:00 CDT, Height, 123.1, kg, 04/10/20 10:21:00 CDT, Weight Ondansetron 2020-0 Yes 4 mg = 1 Me moria 4 MG Oral 6-25 tab, PO, l Tablet 19:19: Q6H, PRN Nayan [Zofran] 00 Nausea/Vom iting, # 30 tab, 0 Refill(s) Famotidine 2020-0 Yes 40 mg = 1 Me moria 40 MG Oral 6-25 tab, PO, l Tablet 19:19: Daily, # Dwight [Pepcid] 00 30 tab, 0 Refill(s) Ondansetron 2020-0 Yes 4 mg = 1 Me moria 4 MG Oral 6-25 tab, PO, l Tablet 19:19: Q6H, PRN Dwight [Zofran] 00 Nausea/Vom iting, # 30 tab, 0 Refill(s) Famotidine 2020-0 Yes 40 mg = 1 Me moria 40 MG Oral 6-25 tab, PO, l Tablet 19:19: Daily, # Dwight [Pepcid] 00 30 tab, 0 Refill(s) Ondansetron 2020-0 Yes 4 mg = 1 Me moria 4 MG Oral 6-25 tab, PO, l Tablet 19:19: Q6H, PRN Dwight [Zofran] 00 Nausea/Vom iting, # 30 tab, 0 Refill(s) Famotidine 2020-0 Yes 40 mg = 1 Me moria 40 MG Oral 6-25 tab, PO, l Tablet 19:19: Daily, # Nayan [Pepcid] 00 30 tab, 0 Refill(s) Ondansetron 2020-0 Yes 4 mg = 1 Me moria 4 MG Oral 6-25 tab, PO, l Tablet 19:19: Q6H, PRN Dwight [Zofran] 00 Nausea/Vom iting, # 30 tab, 0 Refill(s) Famotidine 2020-0 Yes 40 mg = 1 Me moria 40 MG Oral 6-25 tab, PO, l Tablet 19:19: Daily, # Dwight [Pepcid] 00 30 tab, 0 Refill(s) Hyoscyamine 2020-0 Yes 0.125 mg = Memoria Sulfate 6-25 1 tab, PO, l 0.125 MG 19:18: QID, PRN Lindsay nn Oral Tablet 00 Spasm, # [Levsin] 40 tab, 0 Refill(s) Hyoscyamine 2020-0 Yes 0.125 mg = Memoria Sulfate 6-25 1 tab, PO, l 0.125 MG 19:18: QID, PRN Lindsay nn Oral Tablet 00 Spasm, # [Levsin] 40 tab, 0 Refill(s) Hyoscyamine 2020-0 Yes 0.125 mg = Memoria Sulfate 6-25 1 tab, PO, l 0.125 MG 19:18: QID, PRN Lindsay nn Oral Tablet 00 Spasm, # [Levsin] 40 tab, 0 Refill(s) Hyoscyamine 2020-0 Yes 0.125 mg = Memoria Sulfate 6-25 1 tab, PO, l 0.125 MG 19:18: QID, PRN Lindsay nn Oral Tablet 00 Spasm, # [Levsin] 40 tab, 0 Refill(s) Lasix 2020-0 Yes Notes: Memoria 6-25 (Same as: l 19:11: Lasix) May Nayan 00 cause GI upset. Give with food or milk. Lasix 2020-0 Yes Notes: Memoria 6-25 (Same as: l 19:11: Lasix) May Dwight 00 cause GI upset. Give with food or milk. Lasix 2020-0 Yes Notes: Memoria 6-25 (Same as: l 19:11: Lasix) May Nayan 00 cause GI upset. Give with food or milk. Lasix 2020-0 Yes Notes: Memoria 6-25 (Same as: l 19:11: Lasix) May Nayan 00 cause GI upset. Give with food or milk. Omnipaque 2020-0 No 45 Memoria 300 6-25 mL/min, l injectable 17:49: STAT, [place] n solution 00 Start date: 04/10/20 12:49:00 CDT, Duration: 1 doses or times Omnipaque 2020-0 No 45 Memoria 300 6-25 mL/min, l injectable 17:49: STAT, Tony n solution 00 Start date: 04/10/20 12:49:00 CDT, Duration: 1 doses or times Omnipaque 2020-0 No 45 Memoria 300 6-25 mL/min, l injectable 17:49: STAT, Tony n solution 00 Start date: 04/10/20 12:49:00 CDT, Duration: 1 doses or times Omnipaque 2020-0 No 45 Memoria 300 6-25 mL/min, l injectable 17:49: STAT, Tony n solution 00 Start date: 04/10/20 12:49:00 CDT, Duration: 1 doses or times Saline 2019- No Notes: Memoria Flush 0.9% 6-25 (Same as: l 16:26: BD Dwight 00 Posiflush) Sodium 2020-0 No 1,000 mL, Memori a Chloride 6-25 1000 l 0.9% 16:26: ml/hr, Nayan (Bolus) IV 00 Infuse Over: 1 hr, Route: IV, 1,000, Drug form: INJ, ONCE, Priority: STAT, Dosing Weight 123.1 kg, Start date: 04/10/20 11:26:00 CDT, Stop date: 04/10/20 11:26:00 CDT, 0 Morphine 2019-0 No Notes: Memoria 6-25 (Same l 16:26: as:MORPhin Dwight 00 e Sulfate) Ondansetron 0 No Notes: Vance valerie 6-25 (Same as: l 16:26: Zofran) Dwight 00 MEDICATION WASTE Product Size: 4 mg Product Wasted: ___ mg pantoprazol No Notes: For Memoria e 6-25 IV push l 16:26: reconstitu Dwight 00 te with 10 ml 0.9% sodium chloride and push over 2 minutes. (Same as: Protonix) Saline 0 No Notes: Memoria Flush 0.9% 6-25 (Same as: l 16:26: BD Nayan 00 Posiflush) Sodium 2020-0 No 1,000 mL, Memori a Chloride 6-25 1000 l 0.9% 16:26: ml/hr, Dwight (Bolus) IV 00 Infuse Over: 1 hr, Route: IV, 1,000, Drug form: INJ, ONCE, Priority: STAT, Dosing Weight 123.1 kg, Start date: 04/10/20 11:26:00 CDT, Stop date: 04/10/20 11:26:00 CDT, 0 Morphine 2019-0 No Notes: Memoria 6-25 (Same l 16:26: as:MORPhin Dwight 00 e Sulfate) Ondansetron 2020-0 No Notes: Vance valerie 6-25 (Same as: l 16:26: Zofran) Nayan 00 MEDICATION WASTE Product Size: 4 mg Product Wasted: ___ mg pantoprazol 2020-0 No Notes: For Memoria e 6-25 IV push l 16:26: reconstitu Dwight 00 te with 10 ml 0.9% sodium chloride and push over 2 minutes. (Same as: Protonix) Saline 2020-0 No Notes: Memoria Flush 0.9% 6-25 (Same as: l 16:26: BD Dwight 00 Posiflush) Sodium 2020-0 No 1,000 mL, Memori a Chloride 6-25 1000 l 0.9% 16:26: ml/hr, Dwight (Bolus) IV 00 Infuse Over: 1 hr, Route: IV, 1,000, Drug form: INJ, ONCE, Priority: STAT, Dosing Weight 123.1 kg, Start date: 04/10/20 11:26:00 CDT, Stop date: 04/10/20 11:26:00 CDT, 0 Morphine 2020-0 No Notes: Memoria 6-25 (Same l 16:26: as:MORPhin Nayan 00 e Sulfate) Ondansetron 2020-0 No Notes: Vance valerie 6-25 (Same as: l 16:26: Zofran) Nayan 00 MEDICATION WASTE Product Size: 4 mg Product Wasted: ___ mg pantoprazol 2020-0 No Notes: For Memoria e 6-25 IV push l 16:26: reconstitu Dwight 00 te with 10 ml 0.9% sodium chloride and push over 2 minutes. (Same as: Protonix) Saline 2020-0 No Notes: Memoria Flush 0.9% 6-25 (Same as: l 16:26: BD Dwight 00 Posiflush) Sodium 2020-0 No 1,000 mL, Memori a Chloride 6-25 1000 l 0.9% 16:26: ml/hr, Nayan (Bolus) IV 00 Infuse Over: 1 hr, Route: IV, 1,000, Drug form: INJ, ONCE, Priority: STAT, Dosing Weight 123.1 kg, Start date: 04/10/20 11:26:00 CDT, Stop date: 04/10/20 11:26:00 CDT, 0 Morphine No Notes: Memoria 6-25 (Same l 16:26: as:MORPhin e Sulfate) Ondansetron No Notes: Vance valerie 6-25 (Same as: l 16:26: Zofran) MEDICATION WASTE Product Size: 4 mg Product Wasted: ___ mg pantoprazol No Notes: For Memoria e 6-25 IV push l 16:26: reconstitu te with 10 ml 0.9% sodium chloride and push over 2 minutes. (Same as: Protonix) lidocaine No Route: IV, Me moria (ANES) 04-07 Drug form: l 16:55: INJ, ONCE, Stop date: 04/07/20 11:55:00 CDT lidocaine No Route: IV, Me moria (ANES) 04-07 Drug form: l 16:55: INJ, ONCE, Stop date: 04/07/20 11:55:00 CDT lidocaine No Route: IV, Me moria (ANES) 04-07 Drug form: l 16:55: INJ, ONCE, Stop date: 04/07/20 11:55:00 CDT lidocaine No Route: IV, Me moria (ANES) 04-07 Drug form: l 16:55: INJ, ONCE, Stop date: 04/07/20 11:55:00 CDT propofol No Route: IV, Mem oria (ANES) 10 04-07 Drug form: l mg 16:37: INJ, Start date: 04/07/20 11:37:00 CDT, Stop date: 04/07/20 12:37:00 CDT Lactated No Route: IV, Mem oria Ringers 04-07 Total l Injection 16:37: Volume: Lindsay nn IV (ANES) 00 1,000, 1000 mL Start date: 04/07/20 11:37:00 CDT, Stop date: 04/07/20 12:37:00 CDT propofol 2020-0 No Route: IV, Mem oria (ANES) 10 04-07 Drug form: l mg 16:37: INJ, Start date: 04/07/20 11:37:00 CDT, Stop date: 04/07/20 12:37:00 CDT Lactated 2020-0 No Route: IV, Mem oria Ringers 6-22 Total l Injection 16:37: Volume: Lindsay nn IV (ANES) 00 1,000, 1000 mL Start date: 04/07/20 11:37:00 CDT, Stop date: 04/07/20 12:37:00 CDT propofol 2020-0 No Route: IV, Mem oria (ANES) 10 04-07 Drug form: l mg 16:37: INJ, Start date: 04/07/20 11:37:00 CDT, Stop date: 04/07/20 12:37:00 CDT Lactated 2020-0 No Route: IV, Mem oria Ringers 6-22 Total l Injection 16:37: Volume: Lindsay nn IV (ANES) 00 1,000, 1000 mL Start date: 04/07/20 11:37:00 CDT, Stop date: 04/07/20 12:37:00 CDT propofol 2020-0 No Route: IV, Mem oria (ANES) 10 04-07 Drug form: l mg 16:37: INJ, Start date: 04/07/20 11:37:00 CDT, Stop date: 04/07/20 12:37:00 CDT Lactated 2020-0 No Route: IV, Mem oria Ringers 6-22 Total l Injection 16:37: Volume: Lindsay nn IV (ANES) 00 1,000, 1000 mL Start date: 04/07/20 11:37:00 CDT, Stop date: 04/07/20 12:37:00 CDT Insulin 2020-0 No 4 unit, Memoria regular 04-07 Route: l 15:50: SUB-Q, Nayan ONCE, Dosing Weight 124.091, kg, Start date: 04/07/20 10:50:00 CDT, Stop date: 04/07/20 10:50:00 CDT Insulin 2020-0 No 4 unit, Memoria regular - Route: l 15:50: SUB-Q, Nayan 00 ONCE, Dosing Weight 124.091, kg, Start date: 04/07/20 10:50:00 CDT, Stop date: 04/07/20 10:50:00 CDT Insulin 2020-0 No 4 unit, Memoria regular 04-07 Route: l 15:50: SUB-Q, Nayan 00 ONCE, Dosing Weight 124.091, kg, Start date: 04/07/20 10:50:00 CDT, Stop date: 04/07/20 10:50:00 CDT Insulin 2020-0 No 4 unit, Memoria regular 04-07 Route: l 15:50: SUB-Q, Dwight 00 ONCE, Dosing Weight 124.091, kg, Start date: 04/07/20 10:50:00 CDT, Stop date: 04/07/20 10:50:00 CDT Insulin 2020-0 Yes Notes: Memoria regular - (Same as: l 14:52: Humulin R) Nayan 00 Roll in palms of hands gently; Do not shake vigorously . WASTE: F/P - Black; E - Municipal Trash Bin Stable for 31 days at room temperatur e Expires in days from ____Date Insulin 2020-0 Yes Notes: Memoria regular - (Same as: l 14:52: Humulin R) Nayan 00 Roll in palms of hands gently; Do not shake vigorously . WASTE: F/P - Black; E - Municipal Trash Bin Stable for 31 days at room temperatur e Expires in days from ____Date Insulin 2020-0 Yes Notes: Memoria regular 6- (Same as: l 14:52: Humulin R) Dwight 00 Roll in palms of hands gently; Do not shake vigorously . WASTE: F/P - Black; E - Municipal Trash Bin Stable for 31 days at room temperatur e Expires in days from ____Date Insulin 2020-0 Yes Notes: Memoria regular 6-22 (Same as: l 14:52: Humulin R) Dwight 00 Roll in palms of hands gently; Do not shake vigorously . WASTE: F/P - Black; E - Municipal Trash Bin Stable for 31 days at room temperatur e Expires in days from ____Date Lasix 2020-0 Yes BID, 0 Memoria 6-18 Refill(s) l 21:58: Dwight 00 Lasix 2020-0 Yes BID, 0 Memoria 6-18 Refill(s) l 21:58: Dwight 00 Lasix 2020-0 Yes BID, 0 Memoria 6-18 Refill(s) l 21:58: Nayan 00 Lasix 2020-0 Yes BID, 0 Memoria 6-18 Refill(s) l 21:58: Dwight 00 Insulin 2020-0 Yes SUB-Q, Memoria Glargine 6-18 Daily, 0 l 100 UNT/ML 20:54: Refill(s) He rmann Injectable 00 Solution [Lantus] Insulin 2020-0 Yes SUB-Q, Memoria Glargine 6-18 Daily, 0 l 100 UNT/ML 20:54: Refill(s) He rmann Injectable 00 Solution [Lantus] Insulin 2020-0 Yes SUB-Q, Memoria Glargine 6-18 Daily, 0 l 100 UNT/ML 20:54: Refill(s) He rmann Injectable 00 Solution [Lantus] Insulin 2020-0 Yes SUB-Q, Memoria Glargine 6-18 Daily, 0 l 100 UNT/ML 20:54: Refill(s) He rmann Injectable 00 Solution [Lantus] Lactulose 2020-0 Yes 133.3333 Vance valerie 667 MG/ML 6-18 gm = 200 l Oral 16:19: mL, PO, Dwight Solution 00 ONCE, drink at 4pm, day before procedure, # 200 mL, 0 Refill(s), Pharmacy: [facility] [place], 175.26, cm, 04/03/20 10:52:00 CDT, Height, 123.693, kg, 04/03/20 10:52:00 CDT, Weight Lactulose 2020-0 Yes 133.3333 Vance valerie 667 MG/ML 6-18 gm = 200 l Oral 16:19: mL, PO, Dwight Solution 00 ONCE, drink at 4pm, day before procedure, # 200 mL, 0 Refill(s), Pharmacy: [facility], 175.26, cm, 04/03/20 10:52:00 CDT, Height, 123.693, kg, 04/03/20 10:52:00 CDT, Weight Lactulose 2019-0 Yes 133.3333 Vance valerie 667 MG/ML 6-18 gm = 200 l Oral 16:19: mL, PO, Nayan Solution 00 ONCE, drink at 4pm, day before procedure, # 200 mL, 0 Refill(s), Pharmacy: [facility], 175.26, cm, 04/03/20 10:52:00 CDT, Height, 123.693, kg, 04/03/20 10:52:00 CDT, Weight Lactulose 2019-0 Yes 133.3333 Vance valerie 667 MG/ML 6-18 gm = 200 l Oral 16:19: mL, PO, Dwight Solution 00 ONCE, drink at 4pm, day before procedure, # 200 mL, 0 Refill(s), Pharmacy: [facility], 175.26, cm, 04/03/20 10:52:00 CDT, Height, 123.693, kg, 04/03/20 10:52:00 CDT, Weight Azithromyci No Notes: Vance valerie n 9-12 Take 1 l 21:00: hour Nayan 00 before or 2 hours after meals. (Same As: Zithromax) Azithromyci No Notes: Vance valerie n 9-12 Take 1 l 21:00: hour Dwight 00 before or 2 hours after meals. (Same As: Zithromax) Azithromyci No Notes: Vance valerie n 9-12 Take 1 l 21:00: hour Nayan 00 before or 2 hours after meals. (Same As: Zithromax) Azithromyci No Notes: Vance valerie n 9-12 Take 1 l 21:00: hour Dwight 00 before or 2 hours after meals. (Same As: Zithromax) Hydralazine No Notes: Vance valerie Hydrochlori 9-12 (Same as: l de 25 MG 18:00: Apresoline Her adkins Oral Tablet 00 ) May interfere w/enteral feedings Take With Food. Hydralazine No Notes: Vance valerie Hydrochlori 9-12 (Same as: l de 25 MG 18:00: Apresoline Her adkins Oral Tablet 00 ) May interfere w/enteral feedings Take With Food. Hydralazine No Notes: Vance valerie Hydrochlori 9-12 (Same as: l de 25 MG 18:00: Apresoline Her adkins Oral Tablet 00 ) May interfere w/enteral feedings Take With Food. Hydralazine No Notes: Vance valerie Hydrochlori 9-12 (Same as: l de 25 MG 18:00: Apresoline Her adkins Oral Tablet 00 ) May interfere w/enteral feedings Take With Food. Humalog No Notes: Memoria 9-12 (Same as: l 17:30: Humalog) Dwight 00 Roll in palms of hands gently; [...] Memoria 9-12 (Same as: l 17:30: Humalog) Dwight 00 Roll in palms of hands gently; Do not shake vigorously . WASTE: F/P - Black; E - Municipal Trash Bin Stable for 28 days at room temperatur e. Expires in days from ____Date Humalog No Notes: Memoria 9-12 (Same as: l 16:30: Humalog) Dwight 00 Roll in palms of hands gently; Do not shake vigorously . WASTE: F/P - Black; E - Municipal Trash Bin Stable for 28 days at room temperatur e. Expires in days from ____Date Humalog No Notes: Memoria 9-12 (Same as: l 16:30: Humalog) Nayan 00 Roll in palms of hands gently; Do not shake vigorously . WASTE: F/P - Black; E - Municipal Trash Bin Stable for 28 days at room temperatur e. Expires in days from ____Date Humalog No Notes: Memoria 9-12 (Same as: l 16:30: Humalog) Nayan 00 Roll in palms of hands gently; Do not shake vigorously . WASTE: F/P - Black; E - Municipal Trash Bin Stable for 28 days at room temperatur e. Expires in days from ____Date Humalog No Notes: Memoria 9-12 (Same as: l 16:30: Humalog) Nayan 00 Roll in palms of hands gently; Do not shake vigorously . WASTE: F/P - Black; E - Municipal Trash Bin Stable for 28 days at room temperatur e. Expires in days from ____Date cefdinir 0 Yes 300 mg = 1 Mem oria 300 MG Oral 12 cap, PO, l Capsule 15:19: BID, X 7 Tony n 00 day, # 14 cap, 0 Refill(s), Pharmacy: [facility] Yes 20 mg = 2 Me moria 10 mg oral 9-12 tab, PO, l tablet 15:19: Daily, X 7 Lindsay nn 00 day, # 14 tab, 0 Refill(s), Pharmacy: [facility] cefdinir Yes 300 mg = 1 Mem oria 300 MG Oral 9-12 cap, PO, l Capsule 15:19: BID, X 7 Tony n 00 day, # 14 cap, 0 Refill(s), Pharmacy: [facility] predniSONE Yes 20 mg = 2 Me moria 10 mg oral 9-12 tab, PO, l tablet 15:19: Daily, X 7 Lindsay nn 00 day, # 14 tab, 0 Refill(s), Pharmacy: [facility] cefdinir Yes 300 mg = 1 Mem oria 300 MG Oral 9-12 cap, PO, l Capsule 15:19: BID, X 7 Tony n 00 day, # 14 cap, 0 Refill(s), Pharmacy: [facility] predniSONE Yes 20 mg = 2 Me moria 10 mg oral 9-12 tab, PO, l tablet 15:19: Daily, X 7 Lindsay nn 00 day, # 14 tab, 0 Refill(s), Pharmacy: [facility] cefdinir Yes 300 mg = 1 Mem oria 300 MG Oral 9-12 cap, PO, l Capsule 15:19: BID, X 7 Tony n 00 day, # 14 cap, 0 Refill(s), Pharmacy: [facility] predniSONE Yes 20 mg = 2 Me moria 10 mg oral 9-12 tab, PO, l tablet 15:19: Daily, X 7 Lindsay nn 00 day, # 14 tab, 0 Refill(s), Pharmacy: [facility] cefdinir No Notes: Memoria 300 MG Oral 9-12 (Same As: l Capsule 15:00: Omnicef) Tony n cefdinir No Notes: Memoria 300 MG Oral 9-12 (Same As: l Capsule 15:00: Omnicef) Tony n cefdinir No Notes: Memoria 300 MG Oral 9-12 (Same As: l Capsule 15:00: Omnicef) Tony n cefdinir No Notes: Memoria 300 MG Oral 06-28 (Same As: l Capsule 15:00: Omnicef) Tony n 00 insulin, No Notes: Memoria isophane 9-12 (Same as: l 14:27: Humulin N) Nayan 00 Roll in palms of hands gently; Do not shake vigorously . WASTE: F/P - Black; E - Municipal Trash Bin Stable for 31 days at room temperatur e Expires in days from ____Date insulin, No Notes: Memoria isophane -12 (Same as: l 14:27: Humulin N) Nayan 00 Roll in palms of hands gently; Do not shake vigorously . WASTE: F/P - Black; E - Municipal Trash Bin Stable for 31 days at room temperatur e Expires in days from ____Date insulin, No Notes: Memoria isophane - (Same as: l 14:27: Humulin N) Dwight 00 Roll in palms of hands gently; Do not shake vigorously . WASTE: F/P - Black; E - Municipal Trash Bin Stable for 31 days at room temperatur e Expires in days from ____Date insulin, No Notes: Memoria isophane -12 (Same as: l 14:27: Humulin N) Nayan 00 Roll in palms of hands gently; Do not shake vigorously . WASTE: F/P - Black; E - Municipal Trash Bin Stable for 31 days at room temperatur e Expires in days from ____Date ARIPiprazol No Notes: Vance valerie e 06-28 (Same as: l 14:00: Abilify) Nayan 00 Divalproex No Notes: Memor ia Sodium 500 06-28 (Same as: l MG Enteric 14:00: Depakote Her adkins Coated 00 Delayed Tablet Release) Do not confuse with the extended-r elease tablet. Delayed absorption , enteric coated tablet. Do not crush Vitamin D2 No Notes: Memor ia 9-12 (Same as: l 14:00: Vitamin D) "Do Not Crush" Prednisone No Notes: Memor ia 9-12 Take with l 14:00: food. ARIPiprazol No Notes: Vance valerie e 9-12 (Same as: l 14:00: Abilify) Divalproex No Notes: Memor ia Sodium 500 9-12 (Same as: l MG Enteric 14:00: Depakote Her adkins Coated 00 Delayed Tablet Release) Do not confuse with the extended-r elease tablet. Delayed absorption , enteric coated tablet. Do not crush Vitamin D2 No Notes: Memor ia 9-12 (Same as: l 14:00: Vitamin D) "Do Not Crush" Prednisone No Notes: Memor ia 9-12 Take with l 14:00: food. ARIPiprazol No Notes: Vance valerie e 9-12 (Same as: l 14:00: Abilify) Divalproex No Notes: Memor ia Sodium 500 9-12 (Same as: l MG Enteric 14:00: Depakote Her adkins Coated 00 Delayed Tablet Release) Do not confuse with the extended-r elease tablet. Delayed absorption , enteric coated tablet. Do not crush Vitamin D2 No Notes: Memor ia 9-12 (Same as: l 14:00: Vitamin D) "Do Not Crush" Prednisone No Notes: Memor ia 9-12 Take with l 14:00: food. ARIPiprazol No Notes: Vance valerie e 9-12 (Same as: l 14:00: Abilify) Divalproex No Notes: Memor ia Sodium 500 9-12 (Same as: l MG Enteric 14:00: Depakote Her adkins Coated 00 Delayed Tablet Release) Do not confuse with the extended-r elease tablet. Delayed absorption , enteric coated tablet. Do not crush Vitamin D2 No Notes: Memor ia 9-12 (Same as: l 14:00: Vitamin D) "Do Not Crush" Prednisone No Notes: Memor ia 9-12 Take with l 14:00: food. atorvastati No Notes: Vance valerie n 9-12 (Same As: l 02:00: Lipitor) Mirtazapine No Notes: Vance valerie 9-12 (Same l 02:00: as:Remeron Dwight 00 ) atorvastati No Notes: Vance valerie n 9-12 (Same As: l 02:00: Lipitor) Mirtazapine No Notes: Vance valerie 9-12 (Same l 02:00: as:Remeron Dwight 00 ) atorvastati No Notes: Vance valerie n 9-12 (Same As: l 02:00: Lipitor) Mirtazapine No Notes: Vance valerie 9-12 (Same l 02:00: as:Remeron Dwight 00 ) atorvastati No Notes: Vance valerie n 9-12 (Same As: l 02:00: Lipitor) Mirtazapine No Notes: Vance valerie 9-12 (Same l 02:00: as:Remeron Dwight 00 ) Clonazepam No Notes: Memor ia 9-11 (Same As: l 22:00: KlonoPIN) Clonazepam No Notes: Memor ia 9-11 (Same As: l 22:00: KlonoPIN) Clonazepam No Notes: Memor ia 9-11 (Same As: l 22:00: KlonoPIN) Clonazepam No Notes: Memor ia 9-11 (Same As: l 22:00: KlonoPIN) Acetaminoph No Notes: Vance valerie en 325 MG / 06-27 (Same as: l Hydrocodone 19:14: [place] Lindsay nn Bitartrate 00 325/5) Do 5 MG Oral not exceed Tablet 4gm/day of [[place] acetaminop 5/325] hen. Acetaminoph No Notes: Vance valerie en 325 MG / 06-27 (Same as: l Hydrocodone 19:14: [place] Lindsay nn Bitartrate 00 325/5) Do 5 MG Oral not exceed Tablet 4gm/day of [[place] acetaminop 5/325] hen. Acetaminoph No Notes: Vance valerie en 325 MG / 06-27 (Same as: l Hydrocodone 19:14: [place] Lindsay nn Bitartrate 00 325/5) Do 5 MG Oral not exceed Tablet 4gm/day of [[place] acetaminop 5/325] hen. Acetaminoph No Notes: Vance valerie en 325 MG / 06-27 (Same as: l Hydrocodone 19:14: [place] Lindsay nn Bitartrate 00 325/5) Do 5 MG Oral not exceed Tablet 4gm/day of [[place] acetaminop 5/325] hen. metoprolol No Notes: Memor ia tartrate 9-11 (Same as: l 15:00: Lopressor) duloxetine No Notes: Memor ia 9-11 (Same as: l 15:00: Cymbalta) (Do Not Crush) metoprolol No Notes: Memor ia tartrate 9-11 (Same as: l 15:00: Lopressor) duloxetine No Notes: Memor ia 9-11 (Same as: l 15:00: Cymbalta) (Do Not Crush) metoprolol No Notes: Memor ia tartrate 9-11 (Same as: l 15:00: Lopressor) Dwight 00 duloxetine No Notes: Memor ia 9-11 (Same as: l 15:00: Cymbalta) (Do Not Crush) metoprolol No Notes: Memor ia tartrate 9-11 (Same as: l 15:00: Lopressor) duloxetine No Notes: Memor ia 9-11 (Same as: l 15:00: Cymbalta) (Do Not Crush) Baclofen No 5 mg, 1 Memori a 9-11 tab, l 14:30: Route: PO, Dwight 00 Drug form: TAB, BID, Dosing Weight 127.273, kg, Start date: 06/27/19 9:30:00 CDT, Duration: 30 day, Stop date: 07/27/19 9:00:00 CDT, 0 Baclofen 2019-0 No 5 mg, 1 Memori a 9-11 tab, l 14:30: Route: PO, Dwight 00 Drug form: TAB, BID, Dosing Weight 127.273, kg, Start date: 06/27/19 9:30:00 CDT, Duration: 30 day, Stop date: 07/27/19 9:00:00 CDT, 0 Baclofen 2019-0 No 5 mg, 1 Memori a 9-11 tab, l 14:30: Route: PO, Drug form: TAB, BID, Dosing Weight 127.273, kg, Start date: 06/27/19 9:30:00 CDT, Duration: 30 day, Stop date: 07/27/19 9:00:00 CDT, 0 Baclofen 2019-0 No 5 mg, 1 Memori a 9-11 tab, l 14:30: Route: PO, Drug form: TAB, BID, Dosing Weight 127.273, kg, Start date: 06/27/19 9:30:00 CDT, Duration: 30 day, Stop date: 07/27/19 9:00:00 CDT, 0 insulin, 2018-0 No Notes: Memoria isophane 9-11 (Same as: l 14:26: Humulin N) Roll in palms of hands gently; Do not shake vigorously . WASTE: F/P - Black; E - Municipal Trash Bin Stable for 31 days at room temperatur e Expires in days from ____Date insulin, 2019-0 No Notes: Memoria isophane 9-11 (Same as: l 14:26: Humulin N) Dwight 00 Roll in palms of hands gently; Do not shake vigorously . WASTE: F/P - Black; E - Municipal Trash Bin Stable for 31 days at room temperatur e Expires in days from ____Date insulin, 2019-0 No Notes: Memoria isophane 9-11 (Same as: l 14:26: Humulin N) Dwight 00 Roll in palms of hands gently; Do not shake vigorously . WASTE: F/P - Black; E - Municipal Trash Bin Stable for 31 days at room temperatur e Expires in days from ____Date insulin, 2018-0 No Notes: Memoria isophane 9-11 (Same as: l 14:26: Humulin N) Dwight 00 Roll in palms of hands gently; Do not shake vigorously . WASTE: F/P - Black; E - Municipal Trash Bin Stable for 31 days at room temperatur e Expires in days from ____Date Dextrose 2018-0 No 12.5 gm, Memor ia 50% Syringe 9- 25 mL, l 14:22: Route: Dwight 00 IVP, Drug Form: INJ, Dosing Weight 127.273, kg, PRN, PRN Blood Glucose Results, Start date: 06/27/19 9:22:00 CDT, Duration: 30 day, Stop date: 07/27/19 9:21:00 CDT, 0 Glucagon 2019 No 1 mg, Memoria 06-27 Route: IM, l 14:22: Drug form: Dwight 00 PDR/INJ, PRN, Dosing Weight 127.273, kg, PRN Blood Glucose Results, Start date: 06/27/19 9:22:00 CDT, Duration: 30 day, Stop date: 07/27/19 9:21:00 CDT, 0 Insulin 2018-0 No Notes: Memoria Lispro -11 (Same as: l 14:22: Humalog) Dwight 00 Roll in palms of hands gently; Do not shake vigorously . WASTE: F/P - Black; E - Municipal Trash Bin Stable for 28 days at room temperatur e. Expires in days from ____Date Dextrose 2018-0 No 12.5 gm, Memor ia 50% Syringe 9-11 25 mL, l 14:22: Route: Nayan 00 IVP, Drug Form: INJ, Dosing Weight 127.273, kg, PRN, PRN Blood Glucose Results, Start date: 06/27/19 9:22:00 CDT, Duration: 30 day, Stop date: 07/27/19 9:21:00 CDT, 0 Glucagon 2019-0 No 1 mg, Memoria 06-27 Route: IM, l 14:22: Drug form: Nayan 00 PDR/INJ, PRN, Dosing Weight 127.273, kg, PRN Blood Glucose Results, Start date: 06/27/19 9:22:00 CDT, Duration: 30 day, Stop date: 07/27/19 9:21:00 CDT, 0 Insulin 2019-0 No Notes: Memoria Lispro -11 (Same as: l 14:22: Humalog) Roll in palms of hands gently; Do not shake vigorously . WASTE: F/P - Black; E - Municipal Trash Bin Stable for 28 days at room temperatur e. Expires in days from ____Date Dextrose 2019-0 No 12.5 gm, Memor ia 50% Syringe 06-27 25 mL, l 14:22: Route: IVP, Drug Form: INJ, Dosing Weight 127.273, kg, PRN, PRN Blood Glucose Results, Start date: 06/27/19 9:22:00 CDT, Duration: 30 day, Stop date: 07/27/19 9:21:00 CDT, 0 Glucagon 2019-0 No 1 mg, Memoria 06-27 Route: IM, l 14:22: Drug form: PDR/INJ, PRN, Dosing Weight 127.273, kg, PRN Blood Glucose Results, Start date: 06/27/19 9:22:00 CDT, Duration: 30 day, Stop date: 07/27/19 9:21:00 CDT, 0 Insulin 2019-0 No Notes: Memoria Lispro -11 (Same as: l 14:22: Humalog) Roll in palms of hands gently; Do not shake vigorously . WASTE: F/P - Black; E - Municipal Trash Bin Stable for 28 days at room temperatur e. Expires in days from ____Date Dextrose 2018- No 12.5 gm, Memor ia 50% Syringe - 25 mL, l 14:22: Route: Dwight 00 IVP, Drug Form: INJ, Dosing Weight 127.273, kg, PRN, PRN Blood Glucose Results, Start date: 06/27/19 9:22:00 CDT, Duration: 30 day, Stop date: 07/27/19 9:21:00 CDT, 0 Glucagon No 1 mg, Memoria 9-11 Route: IM, l 14:22: Drug form: PDR/INJ, PRN, Dosing Weight 127.273, kg, PRN Blood Glucose Results, Start date: 06/27/19 9:22:00 CDT, Duration: 30 day, Stop date: 07/27/19 9:21:00 CDT, 0 Insulin No Notes: Memoria Lispro -11 (Same as: l 14:22: Humalog) Roll in palms of hands gently; Do not shake vigorously . WASTE: F/P - Black; E - Municipal Trash Bin Stable for 28 days at room temperatur e. Expires in days from ____Date sennosides, No Notes: Vance valerie HALF-WAY 9-11 (Same as: l 02:00: Senokot) Dwight 00 Saline No Notes: Memoria Flush 0.9% 9-11 (Same as: l 02:00: BD Nayan 00 Posiflush) sennosides, No Notes: Vance valerie HALF-WAY 9-11 (Same as: l 02:00: Senokot) Dwight 00 Saline No Notes: Memoria Flush 0.9% 9-11 (Same as: l 02:00: BD Dwight 00 Posiflush) sennosides, No Notes: Vance valerie HALF-WAY 9-11 (Same as: l 02:00: Senokot) Nayan 00 Saline No Notes: Memoria Flush 0.9% 9-11 (Same as: l 02:00: BD Dwight 00 Posiflush) sennosides, No Notes: Vance valerie HALF-WAY 9-11 (Same as: l 02:00: Senokot) Dwight 00 Saline No Notes: Memoria Flush 0.9% 9-11 (Same as: l 02:00: BD Dwight 00 Posiflush) Hydralazine No Notes: Vance valerie Hydrochlori 9-10 (Same as: l de 25 MG 23:00: Apresoline Her adkins Oral Tablet 00 ) May interfere w/enteral feedings Take With Food. Hydralazine No Notes: Vance valerie Hydrochlori 9-10 (Same as: l de 25 MG 23:00: Apresoline Her adkins Oral Tablet 00 ) May interfere w/enteral feedings Take With Food. Hydralazine No Notes: Vance valerie Hydrochlori 9-10 (Same as: l de 25 MG 23:00: Apresoline Her adkins Oral Tablet 00 ) May interfere w/enteral feedings Take With Food. Hydralazine No Notes: Vance valerie Hydrochlori 9-10 (Same as: l de 25 MG 23:00: Apresoline Her adkins Oral Tablet 00 ) May interfere w/enteral feedings Take With Food. Docusate No Notes: Memoria 9-10 (Same as: l 22:00: Colace) Nayan (Do Not Crush) Docusate No Notes: Memoria 9-10 (Same as: l 22:00: Colace) Dwight 00 (Do Not Crush) Docusate No Notes: Memoria 9-10 (Same as: l 22:00: Colace) Dwight 00 (Do Not Crush) Docusate No Notes: Memoria 9-10 (Same as: l 22:00: Colace) Dwight (Do Not Crush) Ceftriaxone No Notes: Vance valerie 9-10 (Same As: l 21:00: Rocephin). Dwight Use with 100 mL NS and infuse over 30 min MEDICATION WASTE Product Size: 1000 mg Product Wasted: ___ mg Azithromyci No Notes: Vance valerie n 9-10 (Same As: l 21:00: Zithromax Dwight IV) methylPREDN 2018- No Notes: Vance valerie ISolone 9-10 (Same l SODium 21:00: as:Solu-ME Lindsay nn SUCCinate 00 DROL, A-Methapre d) Ceftriaxone No Notes: Vance valerie 9-10 (Same As: l 21:00: Rocephin). Dwight 00 Use with 100 mL NS and infuse over 30 min MEDICATION WASTE Product Size: 1000 mg Product Wasted: ___ mg Azithromyci 2018- No Notes: Vance valerie n 9-10 (Same As: l 21:00: Zithromax Nayan 00 IV) methylPREDN No Notes: Vance valerie ISolone 9-10 (Same l SODium 21:00: as:Solu-ME Lindsay nn SUCCinate 00 DROL, A-Methapre d) Ceftriaxone No Notes: Vance valerie 9-10 (Same As: l 21:00: Rocephin). Use with 100 mL NS and infuse over 30 min MEDICATION WASTE Product Size: 1000 mg Product Wasted: ___ mg Azithromyci 2018- No Notes: Vance valerie n 9-10 (Same As: l 21:00: Zithromax Dwight 00 IV) methylPREDN No Notes: Vance valerie ISolone 9-10 (Same l SODium 21:00: as:Solu-ME Lindsay nn SUCCinate 00 DROL, A-Methapre d) Ceftriaxone No Notes: Vance valerie 9-10 (Same As: l 21:00: Rocephin). Use with 100 mL NS and infuse over 30 min MEDICATION WASTE Product Size: 1000 mg Product Wasted: ___ mg Azithromyci 2018- No Notes: Vance valerie n 9-10 (Same As: l 21:00: Zithromax Nayan 00 IV) methylPREDN No Notes: Vance valerie ISolone 9-10 (Same l SODium 21:00: as:Solu-ME Lindsay nn SUCCinate 00 DROL, A-Methapre d) Nystatin No Notes: Memoria 100 UNT/MG 9-10 (Same l Topical 20:39: as:Mycosta Herm saqib Powder 00 tin, Nilstat) For external use only. Saline No Notes: Memoria Flush 0.9% 9-10 (Same as: l 20:39: BD Dwight 00 Posiflush) Nystatin No Notes: Memoria 100 UNT/MG 9-10 (Same l Topical 20:39: as:Mycosta Herm saqib Powder 00 tin, Nilstat) For external use only. Saline No Notes: Memoria Flush 0.9% 9-10 (Same as: l 20:39: BD Dwight 00 Posiflush) Nystatin No Notes: Memoria 100 UNT/MG 9-10 (Same l Topical 20:39: as:Mycosta Herm saqib Powder 00 tin, Nilstat) For external use only. Saline No Notes: Memoria Flush 0.9% 9-10 (Same as: l 20:39: BD Dwight 00 Posiflush) Nystatin No Notes: Memoria 100 UNT/MG 9-10 (Same l Topical 20:39: as:Mycosta Herm saqib Powder 00 tin, Nilstat) For external use only. Saline No Notes: Memoria Flush 0.9% 9-10 (Same as: l 20:39: BD Nayan 00 Posiflush) Albuterol No Notes: Memori a 0.833 MG/ML 9-10 (Same as: l / 20:18: Duoneb) Nayan Ipratropium 00 Seney 0.167 MG/ML Inhalant Solution [DuoNeb] Albuterol No Notes: Memori a 0.833 MG/ML 9-10 (Same as: l / 20:18: Duoneb) Dwight Ipratropium 00 Seney 0.167 MG/ML Inhalant Solution [DuoNeb] Albuterol No Notes: Memori a 0.833 MG/ML 9-10 (Same as: l / 20:18: Duoneb) Nayan Ipratropium 00 Seney 0.167 MG/ML Inhalant Solution [DuoNeb] Albuterol No Notes: Memori a 0.833 MG/ML 9-10 (Same as: l / 20:18: Duoneb) Nayan Ipratropium 00 Seney 0.167 MG/ML Inhalant Solution [DuoNeb] Dextrose 2019-0 No 12.5 gm, Memor ia 50% Syringe 9-10 25 mL, l 20:16: Route: IVP, Drug Form: INJ, Dosing Weight 127.273, kg, PRN, PRN Blood Glucose Results, Start date: 06/26/19 15:16:00 CDT, Duration: 30 day, Stop date: 07/26/19 15:15:00 CDT, 0 Glucagon 2019-0 No 1 mg, Memoria 9 Route: IM, l 20:16: Drug form: PDR/INJ, PRN, Dosing Weight 127.273, kg, PRN Blood Glucose Results, Start date: 06/26/19 15:16:00 CDT, Duration: 30 day, Stop date: 07/26/19 15:15:00 CDT, 0 Ondansetron 2019-0 No Notes: Vance valerie -10 (Same as: l 20:16: Zofran) Nayan MEDICATION WASTE Product Size: 4 mg Product Wasted: ___ mg Dextrose 2018-0 No 12.5 gm, Memor ia 50% Syringe 9-10 25 mL, l 20:16: Route: IVP, Drug Form: INJ, Dosing Weight 127.273, kg, PRN, PRN Blood Glucose Results, Start date: 06/26/19 15:16:00 CDT, Duration: 30 day, Stop date: 07/26/19 15:15:00 CDT, 0 Glucagon 2019-0 No 1 mg, Memoria 9- Route: IM, l 20:16: Drug form: PDR/INJ, PRN, Dosing Weight 127.273, kg, PRN Blood Glucose Results, Start date: 06/26/19 15:16:00 CDT, Duration: 30 day, Stop date: 07/26/19 15:15:00 CDT, 0 Ondansetron 2019-0 No Notes: Vance valerie 9-10 (Same as: l 20:16: Zofran) Nayan MEDICATION WASTE Product Size: 4 mg Product Wasted: ___ mg Dextrose 2019-0 No 12.5 gm, Memor ia 50% Syringe 9-10 25 mL, l 20:16: Route: IVP, Drug Form: INJ, Dosing Weight 127.273, kg, PRN, PRN Blood Glucose Results, Start date: 06/26/19 15:16:00 CDT, Duration: 30 day, Stop date: 07/26/19 15:15:00 CDT, 0 Glucagon 2019-0 No 1 mg, Memoria 9-10 Route: IM, l 20:16: Drug form: PDR/INJ, PRN, Dosing Weight 127.273, kg, PRN Blood Glucose Results, Start date: 06/26/19 15:16:00 CDT, Duration: 30 day, Stop date: 07/26/19 15:15:00 CDT, 0 Ondansetron 2019-0 No Notes: Vance valerie 9-10 (Same as: l 20:16: Zofran) Nayan MEDICATION WASTE Product Size: 4 mg Product Wasted: ___ mg Dextrose 2018-0 No 12.5 gm, Memor ia 50% Syringe 9-10 25 mL, l 20:16: Route: IVP, Drug Form: INJ, Dosing Weight 127.273, kg, PRN, PRN Blood Glucose Results, Start date: 06/26/19 15:16:00 CDT, Duration: 30 day, Stop date: 07/26/19 15:15:00 CDT, 0 Glucagon 2019-0 No 1 mg, Memoria 9-10 Route: IM, l 20:16: Drug form: PDR/INJ, PRN, Dosing Weight 127.273, kg, PRN Blood Glucose Results, Start date: 06/26/19 15:16:00 CDT, Duration: 30 day, Stop date: 07/26/19 15:15:00 CDT, 0 Ondansetron 2019-0 No Notes: Vance valerie 9-10 (Same as: l 20:16: Zofran) Nayan MEDICATION WASTE Product Size: 4 mg Product Wasted: ___ mg insulin 2019-0 Yes 50 unit, Memori a isophane 9-10 SUB-Q, l (NPH) 100 19:52: BID, 0 Tony n units/mL 00 Refill(s) human recombinant subcutaneou s suspension insulin 2019-0 Yes 50 unit, Memori a isophane 9-10 SUB-Q, l (NPH) 100 19:52: BID, 0 Tony n units/mL 00 Refill(s) human recombinant subcutaneou s suspension insulin 2019-0 Yes 50 unit, Memori a isophane 9-10 SUB-Q, l (NPH) 100 19:52: BID, 0 Tony n units/mL 00 Refill(s) human recombinant subcutaneou s suspension insulin 2019-0 Yes 50 unit, Memori a isophane 9-10 SUB-Q, l (NPH) 100 19:52: BID, 0 Tony n units/mL 00 Refill(s) human recombinant subcutaneou s suspension zolpidem 10 2018-0 Yes 10 mg = 1 M emoria mg oral 9-10 tab, PO, l tablet 19:50: Bedtime, 0 Lindsay nn 00 Refill(s) zolpidem 10 0 Yes 10 mg = 1 M emoria mg oral 9-10 tab, PO, l tablet 19:50: Bedtime, 0 Lindsay nn 00 Refill(s) zolpidem 10 2018-0 Yes 10 mg = 1 M emoria mg oral 9-10 tab, PO, l tablet 19:50: Bedtime, 0 Lindsay nn 00 Refill(s) zolpidem 10 2018-0 Yes 10 mg = 1 M emoria mg oral 9-10 tab, PO, l tablet 19:50: Bedtime, 0 Lindsay nn 00 Refill(s) baclofen 0 Yes 5 mg = 0.5 Memoria mg oral 9-10 tab, PO, l tablet 19:48: BID, 0 Nayan 00 Refill(s) baclofen 0 Yes 5 mg = 0.5 Memoria mg oral 9-10 tab, PO, l tablet 19:48: BID, 0 Dwight 00 Refill(s) baclofen 0 Yes 5 mg = 0.5 Memoria mg oral 9-10 tab, PO, l tablet 19:48: BID, 0 Nayan 00 Refill(s) baclofen 0 Yes 5 mg = 0.5 Memoria mg oral 9-10 tab, PO, l tablet 19:48: BID, 0 Dwight 00 Refill(s) metoprolol 0 Yes 50 mg = 1 Me moria tartrate 50 9-10 tab, PO, l mg oral 19:47: Daily, 0 Tony n tablet 00 Refill(s) Vitamin D2 0 Yes 50,000 Memor ia 50,000 intl 9-10 IntlUnit = l units oral 19:47: 1 cap, PO, H ermann capsule 00 Q-M and Th, 0 Refill(s) metoprolol 0 Yes 50 mg = 1 Me moria tartrate 50 9-10 tab, PO, l mg oral 19:47: Daily, 0 Tony n tablet 00 Refill(s) Vitamin D2 0 Yes 50,000 Memor ia 50,000 intl 9-10 IntlUnit = l units oral 19:47: 1 cap, PO, H ermann capsule 00 Q-M and Th, 0 Refill(s) metoprolol 0 Yes 50 mg = 1 Me moria tartrate 50 9-10 tab, PO, l mg oral 19:47: Daily, 0 Tony n tablet 00 Refill(s) Vitamin D2 0 Yes 50,000 Memor ia 50,000 intl 9-10 IntlUnit = l units oral 19:47: 1 cap, PO, H ermann capsule 00 Q-M and Th, 0 Refill(s) metoprolol 0 Yes 50 mg = 1 Me moria tartrate 50 9-10 tab, PO, l mg oral 19:47: Daily, 0 Tony n tablet 00 Refill(s) Vitamin D2 0 Yes 50,000 Memor ia 50,000 intl 9-10 IntlUnit = l units oral 19:47: 1 cap, PO, H ermann capsule 00 Q-M and Th, 0 Refill(s) ARIPiprazol 0 Yes 5 mg = 1 Me moria e 5 mg oral 9-10 tab, PO, l tablet 19:46: Daily, 0 Nayan 00 Refill(s) ARIPiprazol 0 Yes 5 mg = 1 Me moria e 5 mg oral 9-10 tab, PO, l tablet 19:46: Daily, 0 Nayan 00 Refill(s) ARIPiprazol Yes 5 mg = 1 Me moria e 5 mg oral 9-10 tab, PO, l tablet 19:46: Daily, 0 Refill(s) ARIPiprazol 2018- Yes 5 mg = 1 Me moria e 5 mg oral 9-10 tab, PO, l tablet 19:46: Daily, 0 Refill(s) DULoxetine Yes 120 mg = 2 M emoria 60 mg oral 9-10 cap, PO, l delayed 19:45: Daily, 0 Tony n release 00 Refill(s) capsule DULoxetine Yes 120 mg = 2 M emoria 60 mg oral 9-10 cap, PO, l delayed 19:45: Daily, 0 Tony n release 00 Refill(s) capsule DULoxetine Yes 120 mg = 2 M emoria 60 mg oral 9-10 cap, PO, l delayed 19:45: Daily, 0 Tony n release 00 Refill(s) capsule DULoxetine Yes 120 mg = 2 M emoria 60 mg oral 9-10 cap, PO, l delayed 19:45: Daily, 0 Tony n release 00 Refill(s) capsule Nitroglycer No Notes: Vance valerie in 06-26 (Same l 19:29: as:Tridil) Final conc = 0.4 mg/ml. Premix bottle. Nitroglycer No Notes: Vance valerie in 06-26 (Same l 19:29: as:Tridil) Final conc = 0.4 mg/ml. Premix bottle. Nitroglycer No Notes: Vance valerie in 06-26 (Same l 19:29: as:Tridil) Final conc = 0.4 mg/ml. Premix bottle. Nitroglycer No Notes: Vance valerie in 06-26 (Same l 19:29: as:Tridil) Final conc = 0.4 mg/ml. Premix bottle. Ativan No 1 mg, Memoria 06-26 Route: l 19:10: IVP, Drug form: INJ, ONCE, Dosing Weight 127.273, kg, Priority: STAT, Start date: 06/26/19 14:10:00 CDT, Stop date: 06/26/19 14:10:00 CDT Ativan 2019-0 No 1 mg, Memoria 9-10 Route: l 19:10: IVP, Drug Dwight 00 form: INJ, ONCE, Dosing Weight 127.273, kg, Priority: STAT, Start date: 06/26/19 14:10:00 CDT, Stop date: 06/26/19 14:10:00 CDT Ativan 2019-0 No 1 mg, Memoria 9-10 Route: l 19:10: IVP, Drug Dwight 00 form: INJ, ONCE, Dosing Weight 127.273, kg, Priority: STAT, Start date: 06/26/19 14:10:00 CDT, Stop date: 06/26/19 14:10:00 CDT Ativan 2019-0 No 1 mg, Memoria 9-10 Route: l 19:10: IVP, Drug Nayan 00 form: INJ, ONCE, Dosing Weight 127.273, kg, Priority: STAT, Start date: 06/26/19 14:10:00 CDT, Stop date: 06/26/19 14:10:00 CDT Nicotine 2019-0 No Notes: Memoria 9-10 (Same as: l 18:25: Habitrol) "Remove old patch before applicatio n of new patch" WASTE: F/P - P Waste Black; E - P Waste Black Nicotine 2019-0 No Notes: Memoria 9-10 (Same as: l 18:25: Habitrol) "Remove old patch before applicatio n of new patch" WASTE: F/P - P Waste Black; E - P Waste Black Nicotine 2019-0 No Notes: Memoria 9-10 (Same as: l 18:25: Habitrol) "Remove old patch before applicatio n of new patch" WASTE: F/P - P Waste Black; E - P Waste Black Nicotine 2019-0 No Notes: Memoria 9-10 (Same as: l 18:25: Habitrol) "Remove old patch before applicatio n of new patch" WASTE: F/P - P Waste Black; E - P Waste Black Lasix 2018-0 No Notes: Memoria 9-10 (Same as: l 17:59: Lasix) Nayan 00 MEDICATION WASTE Product Size: 40 mg Product Wasted: _0__ mg Lasix No Notes: Memoria 9-10 (Same as: l 17:59: Lasix) Nayan 00 MEDICATION WASTE Product Size: 40 mg Product Wasted: _0__ mg Lasix No Notes: Memoria 9-10 (Same as: l 17:59: Lasix) Dwight 00 MEDICATION WASTE Product Size: 40 mg Product Wasted: _0__ mg Lasix No Notes: Memoria 9-10 (Same as: l 17:59: Lasix) Nayan 00 MEDICATION WASTE Product Size: 40 mg Product Wasted: _0__ mg NS (Bolus) 0 No 1,000 mL, Me moria IV 9-10 1,000 l 16:33: ml/hr, Dwight 00 Infuse Over: 1 hr, Route: IV, ONCE, Priority: STAT, Dosing Weight 127.273 kg, Start date: 06/26/19 11:33:00 CDT, Stop date: 06/26/19 11:33:00 CDT NS (Bolus) 2018-0 No 1,000 mL, Me moria IV 9-10 1,000 l 16:33: ml/hr, Dwight 00 Infuse Over: 1 hr, Route: IV, ONCE, Priority: STAT, Dosing Weight 127.273 kg, Start date: 06/26/19 11:33:00 CDT, Stop date: 06/26/19 11:33:00 CDT NS (Bolus) 2018-0 No 1,000 mL, Me moria IV 9-10 1,000 l 16:33: ml/hr, Dwight 00 Infuse Over: 1 hr, Route: IV, ONCE, Priority: STAT, Dosing Weight 127.273 kg, Start date: 06/26/19 11:33:00 CDT, Stop date: 06/26/19 11:33:00 CDT NS (Bolus) 2019-0 No 1,000 mL, Me moria IV 9-10 1,000 l 16:33: ml/hr, Nayan 00 Infuse Over: 1 hr, Route: IV, ONCE, Priority: STAT, Dosing Weight 127.273 kg, Start date: 06/26/19 11:33:00 CDT, Stop date: 06/26/19 11:33:00 CDT Saline 2019-0 No Notes: Memoria Flush 0.9% 9-10 (Same as: l 16:26: BD Nayan Posiflush) Magnesium 2019-0 No 2 gm, Memoria Sulfate 06-26 Route: l 16:26: IVPB, Dwight 00 ONCE, Dosing Weight 117.926, kg, Priority: STAT, Start date: 06/26/19 11:26:00 CDT, Stop date: 06/26/19 11:26:00 CDT methylPREDN 2019-0 No 80 mg, Vance valerie ISolone 06-26 Route: l SODium 16:26: IVP, ONCE, Lindsay nn SUCCinate 00 Dosing Weight 117.926, kg, Priority: STAT, Start date: 06/26/19 11:26:00 CDT, Stop date: 06/26/19 11:26:00 CDT Albuterol 2019-0 No 9 mL, Memoria 0.833 MG/ML 06-26 Route: l / 16:26: NEB, Drug Ipratropium 00 Form: Seney SOLN, 0.167 MG/ML Dosing Inhalant Weight Solution 117.926, kg, ONCE, STAT, Start date: 06/26/19 11:26:00 CDT, Stop date: 06/26/19 11:26:00 CDT Saline 2018-0 No Notes: Memoria Flush 0.9% 9-10 (Same as: l 16:26: BD Nayan Posiflush) Magnesium 2019-0 No 2 gm, Memoria Sulfate 06-26 Route: l 16:26: IVPB, Nayan 00 ONCE, Dosing Weight 117.926, kg, Priority: STAT, Start date: 06/26/19 11:26:00 CDT, Stop date: 06/26/19 11:26:00 CDT methylPREDN 2019-0 No 80 mg, Vance valerie ISolone 06-26 Route: l SODium 16:26: IVP, ONCE, Lindsay nn SUCCinate 00 Dosing Weight 117.926, kg, Priority: STAT, Start date: 06/26/19 11:26:00 CDT, Stop date: 06/26/19 11:26:00 CDT Albuterol 2019-0 No 9 mL, Memoria 0.833 MG/ML 06-26 Route: l / 16:26: NEB, Drug Dwight Ipratropium 00 Form: Seney SOLN, 0.167 MG/ML Dosing Inhalant Weight Solution 117.926, kg, ONCE, STAT, Start date: 06/26/19 11:26:00 CDT, Stop date: 06/26/19 11:26:00 CDT Saline 2019-0 No Notes: Memoria Flush 0.9% 9-10 (Same as: l 16:26: BD Nayan 00 Posiflush) Magnesium 2019-0 No 2 gm, Memoria Sulfate 06-26 Route: l 16:26: IVPB, Nayan 00 ONCE, Dosing Weight 117.926, kg, Priority: STAT, Start date: 06/26/19 11:26:00 CDT, Stop date: 06/26/19 11:26:00 CDT methylPREDN 2018-0 No 80 mg, Vance valerie ISolone 06-26 Route: l SODium 16:26: IVP, ONCE, Lindsay nn SUCCinate 00 Dosing Weight 117.926, kg, Priority: STAT, Start date: 06/26/19 11:26:00 CDT, Stop date: 06/26/19 11:26:00 CDT Albuterol 2019-0 No 9 mL, Memoria 0.833 MG/ML 06-26 Route: l / 16:26: NEB, Drug Nayan Ipratropium 00 Form: Seney SOLN, 0.167 MG/ML Dosing Inhalant Weight Solution 117.926, kg, ONCE, STAT, Start date: 06/26/19 11:26:00 CDT, Stop date: 06/26/19 11:26:00 CDT Saline 2019-0 No Notes: Memoria Flush 0.9% 9-10 (Same as: l 16:26: BD Dwight 00 Posiflush) Magnesium 2019-0 No 2 gm, Memoria Sulfate 06-26 Route: l 16:26: IVPB, Nayan 00 ONCE, Dosing Weight 117.926, kg, Priority: STAT, Start date: 06/26/19 11:26:00 CDT, Stop date: 06/26/19 11:26:00 CDT methylPREDN 2018-0 No 80 mg, Vance valerie ISolone 06-26 Route: l SODium 16:26: IVP, ONCE, Lindsay nn SUCCinate 00 Dosing Weight 117.926, kg, Priority: STAT, Start date: 06/26/19 11:26:00 CDT, Stop date: 06/26/19 11:26:00 CDT Albuterol 2018-0 No 9 mL, Memoria 0.833 MG/ML 06-26 Route: l / 16:26: NEB, Drug Dwight Ipratropium Form: Seney SOLN, 0.167 MG/ML Dosing Inhalant Weight Solution 117.926, kg, ONCE, STAT, Start date: 06/26/19 11:26:00 CDT, Stop date: 06/26/19 11:26:00 CDT levofloxaci 2018-0 Yes 750 mg = 1 Memoria n 750 mg 4-15 tab, PO, l oral tablet 20:43: Daily, X 7 Dwight 00 day, # 7 tab, 0 Refill(s) insulin 2019-0 Yes 45 unit, Memori a isophane 4-15 SUB-Q, l (NPH) 100 20:43: Q12H, # 10 He rmann units/mL 00 mL, 0 human Refill(s) recombinant subcutaneou s suspension levofloxaci 2018- Yes 750 mg = 1 Memoria n 750 mg 4-15 tab, PO, l oral tablet 20:43: Daily, X 7 Dwight 00 day, # 7 tab, 0 Refill(s) insulin 2019-0 Yes 45 unit, Memori a isophane 4-15 SUB-Q, l (NPH) 100 20:43: Q12H, # 10 He rmann units/mL 00 mL, 0 human Refill(s) recombinant subcutaneou s suspension levofloxaci 2018-0 Yes 750 mg = 1 Memoria n 750 mg 4-15 tab, PO, l oral tablet 20:43: Daily, X 7 Nayan 00 day, # 7 tab, 0 Refill(s) insulin 2019-0 Yes 45 unit, Memori a isophane 4-15 SUB-Q, l (NPH) 100 20:43: Q12H, # 10 He rmann units/mL 00 mL, 0 human Refill(s) recombinant subcutaneou s suspension levofloxaci Yes 750 mg = 1 Memoria n 750 mg 4-15 tab, PO, l oral tablet 20:43: Daily, X 7 Nayan 00 day, # 7 tab, 0 Refill(s) insulin Yes 45 unit, Castilloori a isophane 4-15 SUB-Q, l (NPH) 100 20:43: Q12H, # 10 He rmann units/mL 00 mL, 0 human Refill(s) recombinant subcutaneou s suspension insulin, No Notes: Memoria isophane 4-14 Roll in l 16:51: palms of Nayan 00 hands gently; Do not shake vigorously . (Same as: NovoLIN N, Humulin N) Do not hold insulin without contacting prescriber "single patient use only" WASTE: F/P - Black; E - Municipal Trash Bin Stable for 14 days at room temperatur e Expires in days from ____Date insulin, No Notes: Memoria isophane 4-14 Roll in l 16:51: palms of Nayan 00 hands gently; Do not shake vigorously . (Same as: NovoLIN N, Humulin N) Do not hold insulin without contacting prescriber "single patient use only" WASTE: F/P - Black; E - Municipal Trash Bin Stable for 14 days at room temperatur e Expires in days from ____Date insulin, No Notes: Memoria isophane 4-14 Roll in l 16:51: palms of Dwight 00 hands gently; Do not shake vigorously . (Same as: NovoLIN N, Humulin N) Do not hold insulin without contacting prescriber "single patient use only" WASTE: F/P - Black; E - Municipal Trash Bin Stable for 14 days at room temperatur e Expires in days from ____Date insulin, No Notes: Memoria isophane 4-14 Roll in l 16:51: palms of Dwight 00 hands gently; Do not shake vigorously . (Same as: NovoLIN N, Humulin N) Do not hold insulin without contacting prescriber "single patient use only" WASTE: F/P - Black; E - Municipal Trash Bin Stable for 14 days at room temperatur e Expires in days from ____Date Docusate No Notes: Memoria Sodium 100 4-13 (Same as: l MG Oral 22:00: Colace) Nayan Capsule 00 (Do Not [Colace] Crush) Docusate No Notes: Memoria Sodium 100 4-13 (Same as: l MG Oral 22:00: Colace) Nayan Capsule 00 (Do Not [Colace] Crush) Docusate No Notes: Memoria Sodium 100 4-13 (Same as: l MG Oral 22:00: Colace) Dwight Capsule 00 (Do Not [Colace] Crush) Docusate No Notes: Memoria Sodium 100 4-13 (Same as: l MG Oral 22:00: Colace) Nayan Capsule 00 (Do Not [Colace] Crush) Diphenhydra No Notes: Vance valerie mine 4-13 (Same as: l 17:20: Benadryl) Nayan Milk of No Notes: Memoria Magnesia 4-13 (Same as: l 17:20: Milk of Nayan 00 Magnandres, MOM) Simethicone No Notes: Vance valerie 4-13 (Same as: l 17:20: Mylicon) Nayan 00 Ondansetron No Notes: Vance valerie 4-13 (Same as: l 17:20: Zofran) Nayan 00 MEDICATION WASTE Product Size: 4 mg Product Wasted: ___ mg Tessalon No Notes: Memoria Perles 4-13 (Same As: l 17:20: Tessalon Nayan 00 Perles) "Do Not Crush" Diphenhydra No Notes: Vance valerie mine 4-13 (Same as: l 17:20: Benadryl) Nayan 00 Milk of No Notes: Memoria Magnesia 4-13 (Same as: l 17:20: Milk of Nayan 00 Magnesia, MOM) Simethicone No Notes: Vance valerie 4-13 (Same as: l 17:20: Mylicon) Dwight 00 Ondansetron No Notes: Vance valerie 4-13 (Same as: l 17:20: Zofran) Nayan 00 MEDICATION WASTE Product Size: 4 mg Product Wasted: ___ mg Tessalon No Notes: Memoria Perles 4-13 (Same As: l 17:20: Tessalon Nayan 00 Perles) "Do Not Crush" Diphenhydra No Notes: Vance valerie mine 4-13 (Same as: l 17:20: Benadryl) Nayan 00 Milk of No Notes: Memoria Magnesia 4-13 (Same as: l 17:20: Milk of Dwight 00 Magnesia, MOM) Simethicone No Notes: Vance valerie 4-13 (Same as: l 17:20: Mylicon) Nayan 00 Ondansetron No Notes: Vance valerie 4-13 (Same as: l 17:20: Zofran) Dwight 00 MEDICATION WASTE Product Size: 4 mg Product Wasted: ___ mg Tessalon No Notes: Memoria Perles 4-13 (Same As: l 17:20: Tessalon Dwight 00 Perles) "Do Not Crush" Diphenhydra No Notes: Vance valerie mine 4-13 (Same as: l 17:20: Benadryl) Dwight 00 Milk of No Notes: Memoria Magnesia 4-13 (Same as: l 17:20: Milk of Dwight 00 Magnesia, MOM) Simethicone No Notes: Vance valerie 4-13 (Same as: l 17:20: Mylicon) Nayan 00 Ondansetron No Notes: Vance valerie 4-13 (Same as: l 17:20: Zofran) Nayan 00 MEDICATION WASTE Product Size: 4 mg Product Wasted: ___ mg Tessalon No Notes: Memoria Perles 4-13 (Same As: l 17:20: Tessalon Dwight 00 Perles) "Do Not Crush" metoprolol No Notes: Memor ia extended 4-13 (Same as: l release 14:36: Toprol XL) Herm saqib 00 Do Not Crush insulin, No Notes: Memoria isophane 4-13 Roll in l 14:36: palms of Dwight 00 hands gently; Do not shake vigorously . (Same as: Humulin N) Do not hold insulin without contacting prescriber WASTE: F/P - Black; E - Municipal Trash Bin Stable for 28 days at room temperatur e Expires in days from ____Date metoprolol No Notes: Memor ia extended 4-13 (Same as: l release 14:36: Toprol XL) Herm saqib 00 Do Not Crush insulin, No Notes: Memoria isophane 4-13 Roll in l 14:36: palms of Nayan 00 hands gently; Do not shake vigorously . (Same as: Humulin N) Do not hold insulin without contacting prescriber WASTE: F/P - Black; E - Municipal Trash Bin Stable for 28 days at room temperatur e Expires in days from ____Date metoprolol No Notes: Memor ia extended 4-13 (Same as: l release 14:36: Toprol XL) Herm saqib 00 Do Not Crush insulin, No Notes: Memoria isophane 4-13 Roll in l 14:36: palms of Dwight 00 hands gently; Do not shake vigorously . (Same as: Humulin N) Do not hold insulin without contacting prescriber WASTE: F/P - Black; E - Municipal Trash Bin Stable for 28 days at room temperatur e Expires in days from ____Date metoprolol No Notes: Memor ia extended 4-13 (Same as: l release 14:36: Toprol XL) Herm saqib 00 Do Not Crush insulin, No Notes: Memoria isophane 4-13 Roll in l 14:36: palms of Nayan 00 hands gently; Do [...] ia 4-13 (Same as: l 14:00: Cymbalta) Nayan 00 (Do Not Crush) Diltiazem No Notes: Memori a 4-13 (Same l 14:00: as:Cardize Nayan 00 m CD) Before meals. DO NOT CRUSH. Prednisone No Notes: Memor ia 4-13 Take with l 14:00: food. Nayan 00 Azithromyci No Notes: Vance valerie n 4-13 Take 1 l 14:00: hour Dwight 00 before or 2 hours after meals. (Same As: Zithromax) duloxetine No Notes: Memor ia 4-13 (Same as: l 14:00: Cymbalta) Dwight 00 (Do Not Crush) Diltiazem No Notes: Memori a 4-13 (Same l 14:00: as:Cardize Nayan 00 m CD) Before meals. DO NOT CRUSH. Prednisone No Notes: Memor ia 4-13 Take with l 14:00: food. Dwight 00 Azithromyci No Notes: Vance valerie n 4-13 Take 1 l 14:00: hour Dwight 00 before or 2 hours after meals. (Same As: Zithromax) duloxetine No Notes: Memor ia 4-13 (Same as: l 14:00: Cymbalta) Dwight 00 (Do Not Crush) Diltiazem No Notes: Memori a 4-13 (Same l 14:00: as:Cardize Dwight 00 m CD) Before meals. DO NOT CRUSH. Prednisone No Notes: Memor ia 4-13 Take with l 14:00: food. Azithromyci No Notes: Vance valerie n 4-13 Take 1 l 14:00: hour Nayan 00 before or 2 hours after meals. (Same As: Zithromax) duloxetine No Notes: Memor ia 4-13 (Same as: l 14:00: Cymbalta) (Do Not Crush) Diltiazem No Notes: Memori a 4-13 (Same l 14:00: as:Cardize Nayan 00 m CD) Before meals. DO NOT CRUSH. Prednisone No Notes: Memor ia 4-13 Take with l 14:00: food. Mirtazapine No Notes: Vance valerie 4-13 (Same l 02:00: as:Remeron ) insulin, No Notes: Memoria isophane 4-13 Roll in l 02:00: palms of hands gently; Do not shake vigorously . (Same as: Humulin N) Do not hold insulin without contacting prescriber WASTE: F/P - Black; E - Municipal Trash Bin Stable for 28 days at room temperatur e Expires in days from ____Date Clonazepam No Notes: Memor ia 4-13 (Same As: l 02:00: KlonoPIN) atorvastati No Notes: Vance valerie n 4-13 (Same As: l 02:00: Lipitor) Divalproex No 1,000 mg, Me moria Sodium 500 4-13 4 tab, l MG Enteric 02:00: Route: PO, H erm Drug form: Tablet ECTAB, BID, Dosing Weight 117.926, kg, Start date: 01/26/19 21:00:00 CDT, Duration: 30 day, Stop date: 02/25/19 9:00:00 CDT, Delayed Release tablet Mirtazapine No Notes: Vance valerie 4-13 (Same [...] KlonoPIN) atorvastati No Notes: Vance valerie n 4-13 (Same As: l 02:00: Lipitor) Divalproex No 1,000 mg, Me moria Sodium 500 4-13 4 tab, l MG Enteric 02:00: Route: PO, H erm Drug form: Tablet ECTAB, BID, Dosing Weight 117.926, kg, Start date: 01/26/19 21:00:00 CDT, Duration: 30 day, Stop date: 02/25/19 9:00:00 CDT, Delayed Release tablet Mirtazapine No Notes: Vance valerie 4-13 (Same l 02:00: as:Sandyeroclarice ) insulin, No Notes: Memoria isophane 4-13 Roll in l 02:00: palms of Dwight 00 hands gently; Do not shake vigorously . (Same as: Humulin N) Do not hold insulin without contacting prescriber WASTE: F/P - Black; E - Municipal Trash Bin Stable for 28 days at room temperatur e Expires in days from ____Date Clonazepam No Notes: Memor ia 4-13 (Same As: l 02:00: KlonoPIN) atorvastati No Notes: Vance valerie n 4-13 (Same As: l 02:00: Lipitor) Divalproex No 1,000 mg, Me moria Sodium 500 4-13 4 tab, l MG Enteric 02:00: Route: PO, H ermann Coated 00 Drug form: Tablet ECTAB, BID, Dosing Weight 117.926, kg, Start date: 01/26/19 21:00:00 CDT, Duration: 30 day, Stop date: 02/25/19 9:00:00 CDT, Delayed Release tablet Mirtazapine No Notes: Vance valerie 4-13 (Same l 02:00: as:Remeron ) insulin, No Notes: Memoria isophane 4-13 Roll in l 02:00: palms of hands gently; Do not shake vigorously . (Same as: Humulin N) Do not hold insulin without contacting prescriber WASTE: F/P - Black; E - Municipal Trash Bin Stable for 28 days at room temperatur e Expires in days from ____Date Clonazepam No Notes: Memor ia 4-13 (Same As: l 02:00: KlonoPIN) atorvastati No Notes: Vance valerie n 4-13 (Same As: l 02:00: Lipitor) Divalproex No 1,000 mg, Me moria Sodium 500 4-13 4 tab, l MG Enteric 02:00: Route: PO, H ermann Coated Drug form: Tablet ECTAB, BID, Dosing Weight 117.926, kg, Start date: 01/26/19 21:00:00 CDT, Duration: 30 day, Stop date: 02/25/19 9:00:00 CDT, Delayed Release tablet Baclofen No Notes: Memoria 4-12 (Same As: l 22:00: Lioresal) Baclofen No Notes: Memoria 4-12 (Same As: l 22:00: Lioresal) Baclofen No Notes: Memoria 4-12 (Same As: l 22:00: Lioresal) Baclofen No Notes: Memoria 4-12 (Same As: l 22:00: Lioresal) Divalproex No 500 mg, Vance valerie Sodium 500 4-12 Route: PO, l MG Enteric 21:00: Drug form: H ermann Coated ECTAB, Tablet Q8H, Dosing Weight 117.926, kg, Start date: 01/26/19 16:00:00 CDT, Duration: 30 day, Stop date: 02/25/19 8:00:00 CDT, Delayed Release tablet Divalproex 2019-0 No 500 mg, Vance valerie Sodium 500 4-12 Route: PO, l MG Enteric 21:00: Drug form: H ermann Coated 00 ECTAB, Tablet Q8H, Dosing Weight 117.926, kg, Start date: 01/26/19 16:00:00 CDT, Duration: 30 day, Stop date: 02/25/19 8:00:00 CDT, Delayed Release tablet Divalproex 2019-0 No 500 mg, Vance valerie Sodium 500 4-12 Route: PO, l MG Enteric 21:00: Drug form: H ermann Coated ECTAB, Tablet Q8H, Dosing Weight 117.926, kg, Start date: 01/26/19 16:00:00 CDT, Duration: 30 day, Stop date: 02/25/19 8:00:00 CDT, Delayed Release tablet Divalproex 2019-0 No 500 mg, Vance valerie Sodium 500 4-12 Route: PO, l MG Enteric 21:00: Drug form: H ermann Coated 00 ECTAB, Tablet Q8H, Dosing Weight 117.926, kg, Start date: 01/26/19 16:00:00 CDT, Duration: 30 day, Stop date: 02/25/19 8:00:00 CDT, Delayed Release tablet 24 HR No Notes: Memoria Metoprolol 4-12 (Same as: l Tartrate 50 19:30: Toprol XL) Nayan MG Extended 00 May split Release tab, but Tablet do not [Toprol] crush. 24 HR No Notes: Memoria Metoprolol 4-12 (Same as: l Tartrate 50 19:30: Toprol XL) Dwight MG Extended 00 May split Release tab, but Tablet do not [Toprol] crush. 24 HR No Notes: Memoria Metoprolol 4-12 (Same as: l Tartrate 50 19:30: Toprol XL) Nayan MG Extended 00 May split Release tab, but Tablet do not [Toprol] crush. 24 HR No Notes: Memoria Metoprolol 4-12 (Same as: l Tartrate 50 19:30: Toprol XL) Nayan MG Extended February split Release tab, but Tablet do not [Toprol] crush. baclofen 5 Yes 5 mg = 1 Mem oria mg oral 4-12 tab, PO, l tablet 19:02: BID, 0 Nayan 00 Refill(s) baclofen 5 Yes 5 mg = 1 Mem oria mg oral 4-12 tab, PO, l tablet 19:02: BID, 0 Dwight 00 Refill(s) baclofen 5 Yes 5 mg = 1 Mem oria mg oral 4-12 tab, PO, l tablet 19:02: BID, 0 Dwight 00 Refill(s) baclofen 5 Yes 5 mg = 1 Mem oria mg oral 4-12 tab, PO, l tablet 19:02: BID, 0 Nayan 00 Refill(s) Haldol No Notes: Memoria 4-12 (Same as: l 18:43: Haldol) Haldol No Notes: Memoria 4-12 (Same as: l 18:43: Haldol) Haldol No Notes: Memoria 4-12 (Same as: l 18:43: Haldol) Nayan Haldol No Notes: Memoria 4-12 (Same as: l 18:43: Haldol) zolpidem No Notes: Memoria 4-12 (Same As: l 18:41: Ambien) zolpidem No Notes: Memoria 4-12 (Same As: l 18:41: Ambien) zolpidem No Notes: Memoria 4-12 (Same As: l 18:41: Ambien) zolpidem No Notes: Memoria 4-12 (Same As: l 18:41: Ambien) Acetaminoph No Notes: Vance valerie en 325 MG / 4-12 Same as l Hydrocodone 18:40: [place] Lindsay nn Bitartrate 00 325-7.5mg 7.5 MG Oral Do not Tablet exceed [[place] 4gm/day of 7.5/325] acetaminop hen. Acetaminoph No Notes: Vance valerie en 325 MG / 4-12 Same as l Hydrocodone 18:40: [place] Lindsay nn Bitartrate 00 325-7.5mg 7.5 MG Oral Do not Tablet exceed [[place] 4gm/day of 7.5/325] acetaminop hen. Acetaminoph No Notes: Vance valerie en 325 MG / 4-12 Same as l Hydrocodone 18:40: [place] Lindsay nn Bitartrate 00 325-7.5mg 7.5 MG Oral Do not Tablet exceed [[place] 4gm/day of 7.5/325] acetaminop hen. Acetaminoph No Notes: Vance valerie en 325 MG / 4-12 Same as l Hydrocodone 18:40: [place] Lindsay nn Bitartrate 00 325-7.5mg 7.5 MG Oral Do not Tablet exceed [[place] 4gm/day of 7.5/325] acetaminop hen. Divalproex No 500 mg, 2 Me moria Sodium 500 4-12 tab, l MG Enteric 17:00: Route: PO, H ermann Coated 00 Drug form: Tablet ECTAB, Lunch, Dosing Weight 117.926, kg, Start date: 01/26/19 12:00:00 CDT, Duration: 30 day, Stop date: 02/24/19 12:00:00 CDT, Delayed Release tablet Ceftriaxone No Notes: Vance valerie 4-12 (Same As: l 17:00: Rocephin). Nayan 00 Use with 100 mL NS and infuse over 30 min MEDICATION WASTE Product Size: 1000 mg Product Wasted: ___ mg Divalproex No 500 mg, 2 Me moria Sodium 500 4-12 tab, l MG Enteric 17:00: Route: PO, H ermann Coated 00 Drug form: Tablet ECTAB, Lunch, Dosing Weight 117.926, kg, Start date: 01/26/19 12:00:00 CDT, Duration: 30 day, Stop date: 02/24/19 12:00:00 CDT, Delayed Release tablet Ceftriaxone 2018-0 No Notes: Vance valerie 4-12 (Same As: l 17:00: Rocephin). Use with 100 mL NS and infuse over 30 min MEDICATION WASTE Product Size: 1000 mg Product Wasted: ___ mg Divalproex No 500 mg, 2 Me moria Sodium 500 4-12 tab, l MG Enteric 17:00: Route: PO, H ermann Coated 00 Drug form: Tablet ECTAB, Lunch, Dosing Weight 117.926, kg, Start date: 01/26/19 12:00:00 CDT, Duration: 30 day, Stop date: 02/24/19 12:00:00 CDT, Delayed Release tablet Ceftriaxone 2018-0 No Notes: Vance valerie 4-12 (Same As: l 17:00: Rocephin). Use with 100 mL NS and infuse over 30 min MEDICATION WASTE Product Size: 1000 mg Product Wasted: ___ mg Divalproex No 500 mg, 2 Me moria Sodium 500 4-12 tab, l MG Enteric 17:00: Route: PO, H ermann Coated 00 Drug form: Tablet ECTAB, Lunch, Dosing Weight 117.926, kg, Start date: 01/26/19 12:00:00 CDT, Duration: 30 day, Stop date: 02/24/19 12:00:00 CDT, Delayed Release tablet Ceftriaxone 2018-0 No Notes: Vance valerie 4-12 (Same As: l 17:00: Rocephin). Use with 100 mL NS and infuse over 30 min MEDICATION WASTE Product Size: 1000 mg Product Wasted: ___ mg Regular 2018- Yes See Memoria Insulin, 4-12 Instructio l Human 100 16:41: ns, SUB-Q, He rmann UNT/ML 00 0 Injectable Refill(s) Solution [Humulin R] Regular Yes See Memoria Insulin, 4-12 Instructio l Human 100 16:41: ns, SUB-Q, He rmann UNT/ML 00 0 Injectable Refill(s) Solution [Humulin R] Regular Yes See Memoria Insulin, 4-12 Instructio l Human 100 16:41: ns, SUB-Q, He rmann UNT/ML 00 0 Injectable Refill(s) Solution [[facility] R] [facility] Instructio l Human 100 16:41: ns, SUB-Q, He rmann UNT/ML 00 0 Injectable Refill(s) Solution [Humulin R] Baclofen No .5, PO, Memori a 4-12 BID, 0 l 16:32: Refill(s) Baclofen No .5, PO, Memori a 4-12 BID, 0 l 16:32: Refill(s) Baclofen No .5, PO, Memori a 4-12 BID, 0 l 16:32: Refill(s) Baclofen No .5, PO, Memori a 4-12 BID, 0 l 16:32: Refill(s) atorvastati Yes 20 mg = 1 M emoria n 20 mg 4-12 tab, PO, l oral tablet 16:14: Bedtime, # Dwight 00 90 tab, 1 Refill(s) Mirtazapine Yes [...] a 4-12 (Same as: l 16:14: Ativan) zolpidem 10 Yes 10 mg = 1 [...] Tablet 00 # 30 tab, 0 Refill(s) atorvastati Yes 20 mg = 1 M [...] (Same as: l 16:14: Ativan) Nayan 00 atorvastati Yes 20 mg = 1 M emoria n 20 mg 4-12 tab, PO, l oral tablet 16:14: Bedtime, # Dwight 00 90 tab, 1 Refill(s) Mirtazapine Yes [...] as: l 16:14: Ativan) Nayan 00 zolpidem Yes 10 mg = 1 M emoria mg 4-12 tab, SL, l sublingual 16:14: Bedtime, Her adkins tablet 00 PRN for sleep, 0 Refill(s) zolpidem 10 Yes 10 mg = 1 [...] Tablet 00 # 30 tab, 0 Refill(s) clonazePAM Yes 1 mg = [...] Tablet 00 # 30 tab, 0 Refill(s) atorvastati Yes 20 mg = 1 M [...] a 4-12 (Same as: l 16:14: Ativan) Dwight 00 zolpidem 10 Yes 10 mg = [...] Refill(s) Magnesium No Notes: Memori a Sulfate 4-12 WASTE: F/P l 16:10: - Sink; E N[facility] - [facility] Magnesium No Notes: Memori a Sulfate 4-12 WASTE: F/P l 16:10: - Sink; E Dwight - [facility] Magnesium No Notes: Memori a Sulfate 4-12 WASTE: F/P l 16:10: - Sink; E [facility] Magnesium No Notes: Memori a Sulfate 4-12 WASTE: F/P l 16:10: - Sink; E [facility] Amlodipine No Notes: Memor ia 4-12 (Same as: l 16:06: Norvasc) Amlodipine No Notes: Memor ia 4-12 (Same as: l 16:06: Norvasc) Amlodipine No Notes: Memor ia 4-12 (Same as: l 16:06: Norvasc) Amlodipine No Notes: Memor ia 4-12 (Same as: l 16:06: Norvasc) Insulin No Notes: Memoria Lispro 4-12 (Same as: l 16:04: Humalog ) Roll [...] 4-12 Route: IM, l 16:04: Drug form: Dwight 00 PDR/INJ, PRN, Dosing Weight 117.926, kg, PRN Blood Glucose Results, Start date: 01/26/19 11:04:00 CDT, Duration: 30 day, Stop date: 02/25/19 11:03:00 CDT Insulin 2019-0 No Notes: Memoria Lispro 4-12 (Same as: l 16:04: Humalog ) Dwight 00 Roll in palms of hands gently; Do not shake `vigorousl y. "Single Patient Use Only " WASTE: F/P - Black; E - Municipal Trash Bin Stable for 28 days at room temperatur e. Expires in days from ____Date Dextrose 2019-0 No 25 gm, 50 Vance avlerie 50% Syringe 4-12 mL, Route: l 16:04: IVP, Drug Form: INJ, Dosing Weight 117.926, kg, PRN, PRN Blood Glucose Results, Start date: 01/26/19 11:04:00 CDT, Duration: 30 day, Stop date: 02/25/19 11:03:00 CDT Glucagon 2019-0 No 1 mg, Memoria 4-12 Route: IM, l 16:04: Drug form: Dwight 00 PDR/INJ, PRN, Dosing Weight 117.926, kg, PRN Blood Glucose Results, Start date: 01/26/19 11:04:00 CDT, Duration: 30 day, Stop date: 02/25/19 11:03:00 CDT Insulin 2019-0 No Notes: Memoria Lispro 4-12 (Same as: l 16:04: Humalog ) Roll in palms of hands gently; Do not shake `vigorousl y. "Single Patient Use Only " WASTE: F/P - Black; E - Municipal Trash Bin Stable for 28 days at room temperatur e. Expires in days from ____Date Dextrose 2019-0 No 25 gm, 50 Vance valerie 50% Syringe 4-12 mL, Route: l 16:04: IVP, Drug Form: INJ, Dosing Weight 117.926, kg, PRN, PRN Blood Glucose Results, Start date: 01/26/19 11:04:00 CDT, Duration: 30 day, Stop date: 02/25/19 11:03:00 CDT Glucagon 2019-0 No 1 mg, Memoria 12 Route: IM, l 16:04: Drug form: Dwight 00 PDR/INJ, PRN, Dosing Weight 117.926, kg, PRN Blood Glucose Results, Start date: 01/26/19 11:04:00 CDT, Duration: 30 day, Stop date: 02/25/19 11:03:00 CDT Insulin 2019-0 No Notes: Memoria Lispro 01-26 (Same as: l 16:04: Humalog ) Roll in palms of hands gently; Do not shake `vigorousl y. "Single Patient Use Only " WASTE: F/P - Black; E - Municipal Trash Bin Stable for 28 days at room temperatur e. Expires in days from ____Date Dextrose 2019-0 No 25 gm, 50 Vance valerie 50% Syringe 4-12 mL, Route: l 16:04: IVP, Drug Form: INJ, Dosing Weight 117.926, kg, PRN, PRN Blood Glucose Results, Start date: 01/26/19 11:04:00 CDT, Duration: 30 day, Stop date: 02/25/19 11:03:00 CDT Glucagon 2019-0 No 1 mg, Memoria 4-12 Route: IM, l 16:04: Drug form: Dwight PDR/INJ, PRN, Dosing Weight 117.926, kg, PRN Blood Glucose Results, Start date: 01/26/19 11:04:00 CDT, Duration: 30 day, Stop date: 02/25/19 11:03:00 CDT Albuterol 2019-0 No Notes: Memori a 0.833 MG/ML 4-12 (Same as: l / 13:00: Duoneb) Nayan Ipratropium 00 Seney 0.167 MG/ML Inhalant Solution methylPREDN No Notes: Vance valerie ISolone 4-12 (Same l SODium 13:00: as:Solu-ME Lindsay nn SUCCinate 00 DROL, A-Methapre d) Albuterol No Notes: Memori a 0.833 MG/ML 4-12 (Same as: l / 13:00: Duoneb) Nayan Ipratropium 00 Seney 0.167 MG/ML Inhalant Solution methylPREDN No Notes: Vance valerie ISolone 4-12 (Same l SODium 13:00: as:Solu-ME Lindsay nn SUCCinate 00 DROL, A-Methapre d) Albuterol No Notes: Memori a 0.833 MG/ML 4-12 (Same as: l / 13:00: Duoneb) Dwight Ipratropium 00 Seney 0.167 MG/ML Inhalant Solution methylPREDN No Notes: Vance valerie ISolone 4-12 (Same l SODium 13:00: as:Solu-ME Lindsay nn SUCCinate 00 DROL, A-Methapre d) Albuterol No Notes: Memori a 0.833 MG/ML 4-12 (Same as: l / 13:00: Duoneb) Dwight Ipratropium 00 Seney 0.167 MG/ML Inhalant Solution methylPREDN No Notes: Vance valerie ISolone 4-12 (Same l SODium 13:00: as:Solu-ME Lindsay nn SUCCinate 00 DROL, A-Methapre d) Insulin No Notes: Memoria Lispro 4-12 (Same as: l 10:51: Humalog ) Dwight 00 Roll in palms of hands gently; Do not shake `vigorousl y. "Single Patient Use Only " WASTE: F/P - Black; E - Municipal Trash Bin Stable for 28 days at room temperatur e. Expires in days from ____Date Glucagon No 1 mg, Memoria 4-12 Route: IM, l 10:51: Drug form: Dwight 00 PDR/INJ, PRN, Dosing Weight 127.273, kg, PRN [...] day, Stop date: 02/25/19 5:50:00 CDT Saline 2018-0 No Notes: Memoria Flush 0.9% 4-12 (Same as: l 10:51: BD Posiflush) Azithromyci No Notes: Vance valerie n 4-12 Take 1 l 10:51: hour before or 2 hours after meals. (Same As: Zithromax) Insulin No Notes: Memoria Lispro 4-12 (Same as: l 10:51: Humalog ) Roll in palms of hands gently; Do not shake `vigorousl y. "Single Patient Use Only " WASTE: F/P - Black; E - Municipal Trash Bin Stable for 28 days at room temperatur e. Expires in days from ____Date Glucagon 2019-0 No 1 mg, Memoria 4-12 Route: IM, l 10:51: Drug form: PDR/INJ, PRN, Dosing Weight 127.273, [...] day, Stop date: 02/25/19 5:50:00 CDT Saline No Notes: Memoria Flush 0.9% 4-12 (Same as: l 10:51: BD Nayan 00 Posiflush) Azithromyci No Notes: Vance valerie n 4-12 Take 1 l 10:51: hour Nayan 00 before or 2 hours after meals. (Same As: Zithromax) Insulin No Notes: Memoria Lispro 4-12 (Same as: l 10:51: Humalog ) Nayan 00 Roll in palms of hands gently; Do not shake `vigorousl y. "Single Patient Use Only " WASTE: F/P - Black; E - Municipal Trash Bin Stable for 28 days at room temperatur e. Expires in days from ____Date Glucagon No 1 mg, Memoria 4-12 Route: IM, l 10:51: Drug form: Dwight 00 PDR/INJ, PRN, Dosing Weight 127.273, kg, PRN Blood Glucose Results, Priority: STAT, Start date: 01/26/19 5:51:00 CDT, Duration: 30 day, Stop date: 02/25/19 5:50:00 CDT Dextrose No 25 gm, 50 Vance valerie 50% Syringe 4-12 mL, Route: l 10:51: IVP, Drug Nayan 00 Form: INJ, Dosing Weight 127.273, kg, PRN, PRN Blood Glucose Results, Start date: 01/26/19 5:51:00 CDT, Duration: 30 day, Stop date: 02/25/19 5:50:00 CDT Saline No Notes: Memoria Flush 0.9% 4-12 (Same as: l 10:51: BD Nayan 00 Posiflush) Azithromyci No Notes: Vance valerie n 4-12 Take 1 l 10:51: hour Dwight 00 before or 2 hours after meals. (Same As: Zithromax) Insulin No Notes: [facility]oria Lispro 4-12 (Same as: l 10:51: Humalog ) Nayan 00 Roll in palms of hands gently; Do not shake `vigorousl y. "Single Patient Use Only " WASTE: F/P - Black; E - Municipal Trash Bin Stable for 28 days at room temperatur e. Expires in days from ____Date Glucagon 2019-0 No 1 mg, Memoria 4-12 Route: IM, l 10:51: Drug form: Dwight 00 PDR/INJ, PRN, Dosing Weight 127.273, kg, PRN [...] day, Stop date: 02/25/19 5:50:00 CDT Saline 2018-0 No Notes: Memoria Flush 0.9% 4-12 (Same as: l 10:51: BD Dwight 00 Posiflush) Azithromyci 2019-0 No Notes: Vance valerie n 4-12 Take 1 l 10:51: hour Nayan 00 before or 2 hours after meals. (Same As: Zithromax) Sodium 2019-0 No 1,000 mL, Memori a Chloride 4-12 1000 l 0.9% 06:53: ml/hr, Dwight (Bolus) IV 00 Infuse Over: 1 hr, Route: IV, 1,000, Drug form: INJ, ONCE, Priority: STAT, Dosing Weight 127.273 kg, Start date: 01/26/19 1:53:00 CDT, Stop date: 01/26/19 1:53:00 CDT Sodium 2019-0 No 1,000 mL, Memori a Chloride 4-12 1000 l 0.9% 06:53: ml/hr, Dwight (Bolus) IV 00 Infuse Over: 1 hr, Route: IV, 1,000, Drug form: INJ, ONCE, Priority: STAT, Dosing Weight 127.273 kg, Start date: 01/26/19 1:53:00 CDT, Stop date: 01/26/19 1:53:00 CDT Sodium 2019-0 No 1,000 mL, Memori a Chloride 4-12 1000 l 0.9% 06:53: ml/hr, Dwight (Bolus) IV 00 Infuse Over: 1 hr, Route: IV, 1,000, Drug form: INJ, ONCE, Priority: STAT, Dosing Weight 127.273 kg, Start date: 01/26/19 1:53:00 CDT, Stop date: 01/26/19 1:53:00 CDT Sodium 2019-0 No 1,000 mL, Memori a Chloride 4-12 1000 l 0.9% 06:53: ml/hr, Nayan (Bolus) IV 00 Infuse Over: 1 hr, Route: IV, 1,000, Drug form: INJ, ONCE, Priority: STAT, Dosing Weight 127.273 kg, Start date: 01/26/19 1:53:00 CDT, Stop date: 01/26/19 1:53:00 CDT Aspirin 2018- No Notes: Memoria 4-12 Take with l 05:26: food. Aspirin No Notes: Memoria 4-12 Take with l 05:26: food. Nayan Aspirin No Notes: Memoria 4-12 Take with l 05:26: food. Dwight 00 Aspirin No Notes: Memoria 4-12 Take with l 05:26: food. Morphine 2016-10 No 4 mg, Memoria 1-12 Route: l 21:24: IVP, ONCE, Dosing Weight 136.364, kg, Priority: STAT, Start date: 08/28/17 15:24:00 DIRECTOR OF TAX SERVICES, Stop date: 08/28/17 15:24:00 DIRECTOR OF TAX SERVICES Ondansetron 2016-10 No 4 mg, Memor ia 1- Route: l 21:24: IVP, Drug form: INJ, ONCE, Dosing Weight 136.364, kg, Priority: STAT, Start date: 08/28/17 15:24:00 DIRECTOR OF TAX SERVICES, Stop date: 08/28/17 15:24:00 DIRECTOR OF TAX SERVICES Morphine 2016-10 No 4 mg, Memoria -12 Route: l 21:24: IVP, ONCE, Dwight 00 Dosing Weight 136.364, kg, Priority: STAT, Start date: 08/28/17 15:24:00 DIRECTOR OF TAX SERVICES, Stop date: 08/28/17 15:24:00 DIRECTOR OF TAX SERVICES Ondansetron 2017-1 No 4 mg, Memor ia 1-12 Route: l 21:24: IVP, Drug Dwight 00 form: INJ, ONCE, Dosing Weight 136.364, kg, Priority: STAT, Start date: 08/28/17 15:24:00 DIRECTOR OF TAX SERVICES, Stop date: 08/28/17 15:24:00 DIRECTOR OF TAX SERVICES Morphine 2017-1 No 4 mg, Memoria 1-12 Route: l 21:24: IVP, ONCE, Dwight 00 Dosing Weight 136.364, kg, Priority: STAT, Start date: 08/28/17 15:24:00 DIRECTOR OF TAX SERVICES, Stop date: 08/28/17 15:24:00 DIRECTOR OF TAX SERVICES Ondansetron 2017-1 No 4 mg, Memor ia 1-12 Route: l 21:24: IVP, Drug Nayan 00 form: INJ, ONCE, Dosing Weight 136.364, kg, Priority: STAT, Start date: 08/28/17 15:24:00 DIRECTOR OF TAX SERVICES, Stop date: 08/28/17 15:24:00 DIRECTOR OF TAX SERVICES Morphine 2017-1 No 4 mg, Memoria 1-12 Route: l 21:24: IVP, ONCE, Nayan 00 Dosing Weight 136.364, kg, Priority: STAT, Start date: 08/28/17 15:24:00 DIRECTOR OF TAX SERVICES, Stop date: 08/28/17 15:24:00 DIRECTOR OF TAX SERVICES Ondansetron 2017-1 No 4 mg, Memor ia 1-12 Route: l 21:24: IVP, Drug Dwight 00 form: INJ, ONCE, Dosing Weight 136.364, kg, Priority: STAT, Start date: 08/28/17 15:24:00 DIRECTOR OF TAX SERVICES, Stop date: 08/28/17 15:24:00 DIRECTOR OF TAX SERVICES Lasix 2017-0 No 20 mg, Memoria 3-13 Route: l 09:21: IVP, Drug Dwight 00 form: INJ, ONCE, Dosing Weight 122.727, kg, Priority: STAT, Start date: 12/27/16 4:21:00 CDT, Stop date: 12/27/16 4:21:00 CDT Lasix 2017-0 No 20 mg, Memoria 3-13 Route: l 09:21: IVP, Drug Dwight 00 form: INJ, ONCE, Dosing Weight 122.727, kg, Priority: STAT, Start date: 12/27/16 4:21:00 CDT, Stop date: 12/27/16 4:21:00 CDT Lasix 2017-0 No 20 mg, Memoria 3-13 Route: l 09:21: IVP, Drug form: INJ, ONCE, Dosing Weight 122.727, kg, Priority: STAT, Start date: 12/27/16 4:21:00 CDT, Stop date: 12/27/16 4:21:00 CDT Lasix 2017-0 No 20 mg, Memoria 3-13 Route: l 09:21: IVP, Drug form: INJ, ONCE, Dosing Weight 122.727, kg, Priority: STAT, Start date: 12/27/16 4:21:00 CDT, Stop date: 12/27/16 4:21:00 CDT Ativan 0 No Notes: Memoria 3-13 (Same as: l 09:08: Ativan) Nayan 00 Ativan No Notes: Memoria 3-13 (Same as: l 09:08: Ativan) Dwight 00 Ativan 0 No Notes: Memoria 3-13 (Same as: l 09:08: Ativan) Nayan 00 Ativan 0 No Notes: Memoria 3-13 (Same as: l 09:08: Ativan) Ketorolac 2016-0 No 30 mg, Memori a 3-13 Route: IM, l 06:57: ONCE, Dosing Weight 122.727, kg, Start date: 12/27/16 1:57:00 CDT, Stop date: 12/27/16 1:57:00 CDT Ketorolac 2016-0 No 30 mg, Memori a 3-13 Route: IM, l 06:57: ONCE, Dosing Weight 122.727, kg, Start date: 12/27/16 1:57:00 CDT, Stop date: 12/27/16 1:57:00 CDT Ketorolac 2016-0 No 30 mg, Memori a 3-13 Route: IM, l 06:57: ONCE, Dosing Weight 122.727, kg, Start date: 12/27/16 1:57:00 CDT, Stop date: 12/27/16 1:57:00 CDT Ketorolac 2017-0 No 30 mg, Memori a 3-13 Route: IM, l 06:57: ONCE, Dosing Weight 122.727, kg, Start date: 12/27/16 1:57:00 CDT, Stop date: 12/27/16 1:57:00 CDT Benadryl 2017-0 No 25 mg, 1 Memor ia 3-13 tab, l 06:56: Route: PO, Drug form: TAB, ONCE, Dosing Weight 122.727, kg, Priority: STAT, Start date: 12/27/16 1:56:00 CDT, Stop date: 12/27/16 1:56:00 CDT Reglan 2017-0 No Notes: Memoria 3-13 (Same as: l 06:56: Reglan) Prednisone 2017-0 No Notes: Memor ia 3-13 Take with l 06:56: food. Benadryl 2017-0 No 25 mg, 1 Memor ia 3-13 tab, l 06:56: Route: PO, Drug form: TAB, ONCE, Dosing Weight 122.727, kg, Priority: STAT, Start date: 12/27/16 1:56:00 CDT, Stop date: 12/27/16 1:56:00 CDT Reglan 2017-0 No Notes: Memoria 3-13 (Same as: l 06:56: Reglan) Prednisone 2017-0 No Notes: Memor ia 3-13 Take with l 06:56: food. Benadryl 2017-0 No 25 mg, 1 Memor ia 3-13 tab, l 06:56: Route: PO, Drug form: TAB, ONCE, Dosing Weight 122.727, kg, Priority: STAT, Start date: 12/27/16 1:56:00 CDT, Stop date: 12/27/16 1:56:00 CDT Reglan 2017-0 No Notes: Memoria 3-13 (Same as: l 06:56: Reglan) Prednisone 2017-0 No Notes: Memor ia 3-13 Take with l 06:56: food. Benadryl 2017-0 No 25 mg, 1 Memor ia 3-13 tab, l 06:56: Route: PO, Drug form: TAB, ONCE, Dosing Weight 122.727, kg, Priority: STAT, Start date: 12/27/16 1:56:00 CDT, Stop date: 12/27/16 1:56:00 CDT Reglan 2017-0 No Notes: Memoria 3-13 (Same as: l 06:56: Reglan) Prednisone 2017-0 No Notes: Memor ia 3-13 Take with l 06:56: food. Albuterol 2016-0 No 2.49 mg, Vance valerie 0.83 MG/ML 12-27 Route: l Inhalant 06:55: NEB, Drug Herm saqib Solution 00 form: SOLN, ONCE, Dosing Weight 122.727, kg, Priority: STAT, Start date: 12/27/16 1:55:00 CDT, Stop date: 12/27/16 1:55:00 CDT Albuterol 2017-0 No 2.49 mg, Vance valerie 0.83 MG/ML 12-27 Route: l Inhalant 06:55: NEB, Drug Herm saqib Solution 00 form: SOLN, ONCE, Dosing Weight 122.727, kg, Priority: STAT, Start date: 12/27/16 1:55:00 CDT, Stop date: 12/27/16 1:55:00 CDT Albuterol 2017-0 No 2.49 mg, Vance valerie 0.83 MG/ML 12-27 Route: l Inhalant 06:55: NEB, Drug Herm saqib Solution 00 form: SOLN, ONCE, Dosing Weight 122.727, kg, Priority: STAT, Start date: 12/27/16 1:55:00 CDT, Stop date: 12/27/16 1:55:00 CDT Albuterol 2017-0 No 2.49 mg, Vance valerie 0.83 MG/ML 12-27 Route: l Inhalant 06:55: NEB, Drug Herm saqib Solution 00 form: SOLN, ONCE, Dosing Weight 122.727, kg, Priority: STAT, Start date: 12/27/16 1:55:00 CDT, Stop date: 12/27/16 1:55:00 CDT Motrin 2017-0 No 600 mg, Memoria 2-06 Route: PO, l 04:22: Drug form: Nayan 00 TAB, ONCE, Dosing Weight 113.636, kg, Priority: STAT, Start date: 11/21/16 22:22:00 DIRECTOR OF TAX SERVICES, Stop date: 11/21/16 22:22:00 DIRECTOR OF TAX SERVICES Motrin 2017-0 No 600 mg, Memoria 2-06 Route: PO, l 04:22: Drug form: Dwight 00 TAB, ONCE, Dosing Weight 113.636, kg, Priority: STAT, Start date: 11/21/16 22:22:00 DIRECTOR OF TAX SERVICES, Stop date: 11/21/16 22:22:00 DIRECTOR OF TAX SERVICES Motrin 2017-0 No 600 mg, Memoria 2-06 Route: PO, l 04:22: Drug form: Nayan 00 TAB, ONCE, Dosing Weight 113.636, kg, Priority: STAT, Start date: 11/21/16 22:22:00 DIRECTOR OF TAX SERVICES, Stop date: 11/21/16 22:22:00 DIRECTOR OF TAX SERVICES Motrin 2017-0 No 600 mg, Memoria 2-06 Route: PO, l 04:22: Drug form: Dwight 00 TAB, ONCE, Dosing Weight 113.636, kg, Priority: STAT, Start date: 11/21/16 22:22:00 DIRECTOR OF TAX SERVICES, Stop date: 11/21/16 22:22:00 DIRECTOR OF TAX SERVICES Mineral Oil 2016-0 No 120 ml, Mem oria 1000 MG/ML -28 [place], Daily, l Enema 10:07: X 1 day, # Tony n [Fleet 00 135 ml, 0 Mineral Refill(s) Oil] Mineral Oil 0 No 120 ml, Mem oria 1000 MG/ML -28 [place], Daily, l Enema 10:07: X 1 day, # Tony n [Fleet 00 135 ml, 0 Mineral Refill(s) Oil] Mineral Oil 0 No 120 ml, Mem oria 1000 MG/ML -28 [place], Daily, l Enema 10:07: X 1 day, # Tony n [Fleet 00 135 ml, 0 Mineral Refill(s) Oil] Mineral Oil 0 No 120 ml, Mem oria 1000 MG/ML 1-28 [place], Daily, l Enema 10:07: X 1 day, # Tony n [Fleet 00 135 ml, 0 Mineral Refill(s) Oil] GoLYTELY Yes 240 mL, Memori a oral powder 11-13 PO, l for 10:06: Q10Min, # Dwight reconstitut 00 1 ea, 0 ion Refill(s) GoLYTELY Yes 240 mL, Memori a oral powder 11-13 PO, l for 10:06: Q10Min, # Nayan reconstitut 00 1 ea, 0 ion Refill(s) GoLYTELY 2016-0 Yes 240 mL, Memori a oral powder 11-13 PO, l for 10:06: Q10Min, # Nayan reconstitut 00 1 ea, 0 ion Refill(s) GoLYTELY Yes 240 mL, Memori a oral powder 11-13 PO, l for 10:06: Q10Min, # Dwight reconstitut 00 1 ea, 0 ion Refill(s) Citrate of No 300 ml, Vance valerie Magnesia 11-13 Route: PO, l 09:44: Dosing Dwight Weight 113.636, kg, ONCE, Start date: 11/13/16 3:44:00 DIRECTOR OF TAX SERVICES, Stop date: 11/13/16 3:44:00 DIRECTOR OF TAX SERVICES Citrate of 0 No 300 ml, Vance valerie Magnesia 11-13 Route: PO, l 09:44: Dosing Dwight Weight 113.636, kg, ONCE, Start date: 11/13/16 3:44:00 DIRECTOR OF TAX SERVICES, Stop date: 11/13/16 3:44:00 DIRECTOR OF TAX SERVICES Citrate of 0 No 300 ml, Vance valerie Magnesia 11-13 Route: PO, l 09:44: Dosing Nayan Weight 113.636, kg, ONCE, Start date: 11/13/16 3:44:00 DIRECTOR OF TAX SERVICES, Stop date: 11/13/16 3:44:00 DIRECTOR OF TAX SERVICES Citrate of 0 No 300 ml, Vance valerie Magnesia 11-13 Route: PO, l 09:44: Dosing Dwight 00 Weight 113.636, kg, ONCE, Start date: 11/13/16 3:44:00 DIRECTOR OF TAX SERVICES, Stop date: 11/13/16 3:44:00 DIRECTOR OF TAX SERVICES ALPRAZolam 2017-0 Yes 1mg [id number] Take 1 mg [facility] (XANAX) 1 11-[id number] MG tablet 10:47: 3D (three) Hospi ta 20 times a l day. zolpidem 2017-0 Yes 10mg QD Take 10 mg [facility] (AMBIEN) [address] mg tablet 10:47: nightly. [facility]osp [facility] 20 l dextroamphe 2017-0 Yes 30mg QD Take 30 mg [facility] tamine-amph [address] etamine 10:47: daily. Hospita (ADDERALL) 20 l 30 mg tablet albuterol 2017-0 Yes 1{puff} Q4H Inhale 1 [facility] (PROAIR [address] HFA,PROVENT 10:47: 4 (four) Ho [facility]ita [place] 20 hours as l HFA,VENTOLI needed for N HFA) 90 wheezing. mcg/actuati on inhaler amLODIPine Yes 10mg QD Take 10 mg [facility] (NORVASC) 11-[address] 10 mg 10:47: daily. Hospita tablet 20 l pantoprazol 0 Yes 40mg QD Take 40 mg [facility] e 11-[address] (PROTONIX) 10:47: daily. Hospi ta 40 MG EC 20 l tablet ondansetron 0 Yes 4mg Q.5D Take 4 mg [facility] ODT [address] (ZOFRAN-ODT 10:47: (two) Hospi ta ) 4 MG 20 times a l disintegrat day. ing tablet tiZANidine 20170 Yes 4mg Q6H Take 4 mg Me [facility] (ZANAFLEX) [address] 4 MG tablet 10:47: every 6 Hos doug 20 (six) l hours as needed for muscle spasms. oxyCODone 2017-0 Yes 15mg [id number] Take 15 mg [facility] (ROXICODONE 11-08 [id number] [address] mouth [address] ) 15 MG 10:47: 3D (three) Hospita immediate 20 times a l release day. tablet fluticasone 2017-0 Yes 1{puff} Q.5D Inhale 1 [facility] -salmeterol -[address] (ADVAIR) 10:47: (two) Hospita 100-50 20 times a l mcg/dose day. DISKUS promethazin 2017- Yes 25mg QD Take 25 mg [facility] 1-[address] (PHENERGAN) 10:47: daily. [facility]osp [facility] 25 MG 20 l tablet divalproex 2017-0 Yes 1000mg Q.5D Take 1,000 [facility] (DEPAKOTE) 1-[address] 500 MG EC 10:47: mouth 2 Hospi ta tablet 20 (two) l times a day. Dilaudid 2016-0 No 0.5 mg, Memori a 18 Route: l 20:01: IVP, ONCE, Dosing Weight 110, kg, Priority: STAT, Start date: 11/03/16 14:01:00 DIRECTOR OF TAX SERVICES, Stop date: 11/03/16 14:01:00 DIRECTOR OF TAX SERVICES Dilaudid 2016-0 No 0.5 mg, Memori a 18 Route: l 20:01: IVP, ONCE, Dosing Weight 110, kg, Priority: STAT, Start date: 11/03/16 14:01:00 DIRECTOR OF TAX SERVICES, Stop date: 11/03/16 14:01:00 DIRECTOR OF TAX SERVICES Dilaudid 2016-0 No 0.5 mg, Memori a 18 Route: l 20:01: IVP, ONCE, Dosing Weight 110, kg, Priority: STAT, Start date: 11/03/16 14:01:00 DIRECTOR OF TAX SERVICES, Stop date: 11/03/16 14:01:00 DIRECTOR OF TAX SERVICES Dilaudid 2016-0 No 0.5 mg, Memori a 18 Route: l 20:01: IVP, ONCE, Dosing Weight 110, kg, Priority: STAT, Start date: 11/03/16 14:01:00 DIRECTOR OF TAX SERVICES, Stop date: 11/03/16 14:01:00 DIRECTOR OF TAX SERVICES Sodium 2017-0 Yes 1 ea, [place], Memori a Phosphate, 18 ONCE, # l Dibasic 19:03: 118 mL, 0 Lindsay nn 59.3 MG/ML 00 Refill(s) / Sodium Phosphate, Monobasic 161 MG/ML Enema [Fleet Enema] Lactulose Yes 20 gm = 30 Me moria 667 MG/ML 1-18 mL, PO, l Oral 19:03: BID, PRN Nayan Solution 00 constipati on, X 8 day, # 240 mL, 0 Refill(s) Sodium Yes 1 ea, [place], Memori a Phosphate, 1-18 ONCE, # l Dibasic 19:03: 118 mL, 0 Lindsay nn 59.3 MG/ML 00 Refill(s) / Sodium Phosphate, Monobasic 161 MG/ML Enema [Fleet Enema] Lactulose Yes 20 gm = 30 Me moria 667 MG/ML 1-18 mL, PO, l Oral 19:03: BID, PRN Dwight Solution 00 constipati on, X 8 day, # 240 mL, 0 Refill(s) Sodium Yes 1 ea, [place], Memori a Phosphate, 1-18 ONCE, # l Dibasic 19:03: 118 mL, 0 Lindsay nn 59.3 MG/ML 00 Refill(s) / Sodium Phosphate, Monobasic 161 MG/ML Enema [Fleet Enema] Lactulose Yes 20 gm = 30 Me moria 667 MG/ML 1-18 mL, PO, l Oral 19:03: BID, PRN Nayan Solution 00 constipati on, X 8 day, # 240 mL, 0 Refill(s) Sodium Yes 1 ea, [place], Memori a Phosphate, 1-18 ONCE, # l Dibasic 19:03: 118 mL, [...] kg, Priority: STAT, Start date: 11/03/16 10:37:00 DIRECTOR OF TAX SERVICES, Stop date: 11/03/16 10:37:00 DIRECTOR OF TAX SERVICES Saline No Notes: Memoria Flush 0.9% 1-18 (Same as: l 16:37: BD Nayan 00 Posiflush) Sodium 2017-0 No 1,000 mL, Memori a Chloride 1-18 Infuse l 0.154 16:37: Over: 1 Nayan MEQ/ML 00 hr, Route: Injectable IV, ONCE, Solution Priority: STAT, Dosing Weight 110 kg, Start date: 11/03/16 10:37:00 DIRECTOR OF TAX SERVICES, Duration: 1 doses or times, Stop date: 11/03/16 10:37:00 DIRECTOR OF TAX SERVICES Hydromorpho 2017-0 No 1 mg, Memor ia ne 118 Route: l 16:37: IVP, ONCE, Nayan 00 Dosing Weight 110, kg, Priority: STAT, Start date: 11/03/16 10:37:00 DIRECTOR OF TAX SERVICES, Stop date: 11/03/16 10:37:00 DIRECTOR OF TAX SERVICES Saline 2017-0 No Notes: Memoria Flush 0.9% 1-18 (Same as: l 16:37: BD Dwight 00 Posiflush) Sodium 2017-0 No 1,000 mL, Memori a Chloride 1-18 Infuse l 0.154 16:37: Over: 1 Nayan MEQ/ML 00 hr, Route: Injectable IV, ONCE, Solution Priority: STAT, Dosing Weight 110 kg, Start date: 11/03/16 10:37:00 DIRECTOR OF TAX SERVICES, Duration: 1 doses or times, Stop date: 11/03/16 10:37:00 DIRECTOR OF TAX SERVICES Hydromorpho 2017-0 No 1 mg, Memor ia ne 18 Route: l 16:37: IVP, ONCE, Dosing Weight 110, kg, Priority: STAT, Start date: 11/03/16 10:37:00 DIRECTOR OF TAX SERVICES, Stop date: 11/03/16 10:37:00 DIRECTOR OF TAX SERVICES Saline 2017-0 No Notes: Memoria Flush 0.9% 1-18 (Same as: l 16:37: BD Nayan 00 Posiflush) Sodium 2017-0 No 1,000 mL, Memori a Chloride 1-18 Infuse l 0.154 16:37: Over: 1 Dwight MEQ/ML 00 hr, Route: Injectable IV, ONCE, Solution Priority: STAT, Dosing Weight 110 kg, Start date: 11/03/16 10:37:00 DIRECTOR OF TAX SERVICES, Duration: 1 doses or times, Stop date: 11/03/16 10:37:00 DIRECTOR OF TAX SERVICES Hydromorpho No 1 mg, Memor ia ne 18 Route: l 16:37: IVP, ONCE, Dwight 00 Dosing Weight 110, kg, Priority: STAT, Start date: 11/03/16 10:37:00 DIRECTOR OF TAX SERVICES, Stop date: 11/03/16 10:37:00 DIRECTOR OF TAX SERVICES Saline No Notes: [facility] Flush 0.9% 18 (Same as: l 16:37: BD Nayan 00 Posiflush) Sodium No 1,000 mL, Memori a Chloride 18 Infuse l 0.154 16:37: Over: 1 Dwight MEQ/ML 00 hr, Route: Injectable IV, ONCE, Solution Priority: STAT, Dosing Weight 110 kg, Start date: 11/03/16 10:37:00 DIRECTOR OF TAX SERVICES, Duration: 1 doses or times, Stop date: 11/03/16 10:37:00 DIRECTOR OF TAX SERVICES CONSTULOSE Yes [facility] 10 gram/15 1-17 st mL solution 00:00: [facility] 00 l lisinopril Yes [facility] (PRINIVIL,Z [address] [facility] ESTRIL) 20 00:00: [facility] mg tablet 00 l hydrOXYzine 2015-10 Yes [facility] (VISTARIL) 2-28 st 50 MG 00:00: [facility] capsule 00 l DULoxetine 2015-10 Yes [facility] (CYMBALTA) 2-20 st 30 MG 00:00: [facility]osp[facility] capsule 00 l LANTUS 2015-10 Yes [facility] SOLOSTAR 2-14 st 100 unit/mL 00:00: Hospit a injection 00 l (pen) ADDERALL XR 2015-10 Yes [facility] 15 mg 24 hr 2-09 st capsule 00:00: [facility]osp[facility] 00 l BD INSULIN 2015-10 Yes [facility] PEN NEEDLE 2- st UF ORIG 29 00:00: [facility]ospita gauge x 00 l 1/2" needle CHANTIX 1 2015-10 Yes [facility] mg tablet 11-24 st 00:00: [facility]osp[facility] 00 l HUMULIN 2015-10 Yes [facility] 70/30 2-08 st KWIKPEN 100 00:00: Hospit a unit/mL 00 l (70-30) insulin pen ketoconazol 2015-10 Yes [facility] e (NIZORAL) 11-14 st 2 % shampoo 00:00: Hospit a 00 l ondansetron 2015-10 Yes [facility] (ZOFRAN) 4 1-22 st MG tablet 00:00: [facility]ospita 00 l traZODone 2015-10 Yes [facility] (DESYREL) 1-18 st 50 MG 00:00: [facility]osp[facility] tablet 00 l dicyclomine 2015-10 Yes [facility] (BENTYL) 20 0-31 st mg tablet 00:00: Hospita 00 l Protonix 2015-10 No Notes: For Mem oria 0-29 IV push l 21:30: reconstitu Dwight 00 te with 10 ml 0.9% sodium chloride and push over 2 minutes. (Same as: Protonix) Protonix 2015-10 No Notes: For Mem [facility] 0-29 IV push l 21:30: reconstitu Dwight 00 te with 10 ml 0.9% sodium chloride and push over 2 minutes. (Same as: Protonix) Protonix 2015-10 No Notes: For [facility] 0-29 IV push l 21:30: reconstitu Nayan 00 te with 10 ml 0.9% sodium chloride and push over 2 minutes. (Same as: Protonix) Protonix 2015-10 No Notes: For [facility] 0-29 IV push l 21:30: reconstitu Nayan 00 te with 10 ml 0.9% sodium chloride and push over 2 minutes. (Same as: Protonix) amLODIPine 2015-10 Yes 10 mg = 1 Me moria 10 mg oral 0-29 tab, PO, l tablet 20:53: Daily, # Dwight 00 30 tab, 0 Refill(s) amLODIPine 2015-10 Yes 10 mg = 1 Me moria 10 mg oral 0-29 tab, PO, l tablet 20:53: Daily, # Dwight 00 30 tab, 0 Refill(s) amLODIPine 2015-10 Yes 10 mg = 1 Me moria 10 mg oral 0-29 tab, PO, l tablet 20:53: Daily, # Nayan 00 30 tab, 0 Refill(s) amLODIPine 2015-10 Yes 10 mg = 1 Me moria 10 mg oral 0-29 tab, PO, l tablet 20:53: Daily, # Dwight 00 30 tab, 0 Refill(s) dicyclomine 2015-10 Yes 20 mg = 1 M emoria 20 mg oral 0-29 tab, PO, l tablet 20:37: QID, # 12 Tony n 00 tab, 0 Refill(s) dicyclomine 2015-10 Yes 20 mg = 1 M emoria 20 mg oral 0-29 tab, PO, l tablet 20:37: QID, # 12 Tony n 00 tab, 0 Refill(s) dicyclomine 2015-10 Yes 20 mg = 1 M emoria 20 mg oral 0-29 tab, PO, l tablet 20:37: QID, # 12 Tony n 00 tab, 0 Refill(s) dicyclomine 2015-10 Yes 20 mg = 1 M emoria 20 mg oral 0-29 tab, PO, l tablet 20:37: QID, # 12 Tony n 00 tab, 0 Refill(s) pantoprazol 2015-10 Yes 40 mg = [...] 20 Tony n 00 tab, 0 Refill(s) amLODIPine 2015-10 No 10 mg = 1 Me moria 10 mg oral 0-29 tab, PO, l tablet 20:30: Daily, 0 Nayan 00 Refill(s) pantoprazol 2015-10 Yes 40 mg [...] 20 Tony n 00 tab, 0 Refill(s) amLODIPine 2015-10 No 10 mg = 1 Me moria 10 mg oral 0-29 tab, PO, l tablet 20:30: Daily, 0 Nayan 00 Refill(s) pantoprazol 2015-10 Yes 40 mg [...] 20 Tony n 00 tab, 0 Refill(s) amLODIPine 2015-10 No 10 mg = 1 Me moria 10 mg oral 0-29 tab, PO, l tablet 20:30: Daily, 0 Nayan 00 Refill(s) pantoprazol 2015-10 Yes 40 mg [...] 20 Tony n 00 tab, 0 Refill(s) amLODIPine 2015-10 No 10 mg = 1 Me moria 10 mg oral 0-29 tab, PO, l tablet 20:30: Daily, 0 Dwight 00 Refill(s) Divalproex 2015-10 No Notes: Memor ia Sodium 500 0-29 (Same as: l MG Enteric 17:00: Depakote Her adkins Coated 00 Delayed Tablet Release) Do not confuse with the extended-r elease tablet. Delayed absorption enteric coated tablet. Do not crush Divalproex 2015-10 No Notes: Memor ia Sodium 500 0-29 (Same as: l MG Enteric 17:00: Depakote Her adkins Coated 00 Delayed Tablet Release) Do not confuse with the extended-r elease tablet. Delayed absorption enteric coated tablet. Do not crush Divalproex 2015-10 No Notes: Memor ia Sodium 500 0-29 (Same as: l MG Enteric 17:00: Depakote Her adkins Coated 00 Delayed Tablet Release) Do not confuse with the extended-r elease tablet. Delayed absorption enteric coated tablet. Do not crush Divalproex 2015-10 No Notes: Memor ia Sodium 500 0-29 (Same as: l MG Enteric 17:00: Depakote Her adkins Coated 00 Delayed Tablet Release) Do not confuse with the extended-r elease tablet. Delayed absorption enteric coated tablet. Do not crush Norvasc 2015-10 No Notes: Memoria 0-29 (Same as: l 14:00: Norvasc) 24 HR 2015-10 No Notes: Memoria Divalproex 0-29 (Same as: l Sodium 500 14:00: Depakote Her adkins MG Extended 00 ER) Once Release daily Tablet dosing; indicated for migraines. Divalproex sodium extended-r elease tab. Do not chew or crush. "Do Not Crush" Aspirin 2015-10 No Notes: Do Memor ia 0-29 not crush l 14:00: or chew. (Same As: Ecotrin) Norvasc 2015-10 No Notes: Memoria 0-29 (Same as: l 14:00: Norvasc) 24 HR 2015-10 No Notes: Memoria Divalproex 0-29 (Same as: l Sodium 500 14:00: Depakote Her adkins MG Extended 00 ER) Once Release daily Tablet dosing; indicated for migraines. Divalproex sodium extended-r elease tab. Do not chew or crush. "Do Not Crush" Aspirin 2015-10 No Notes: Do Memor ia 0-29 not crush l 14:00: or chew. (Same As: Ecotrin) Norvasc 2015-10 No Notes: Memoria 0-29 (Same as: l 14:00: Norvasc) 24 HR 2015-10 No Notes: Memoria Divalproex 0-29 (Same as: l Sodium 500 14:00: Depakote Her adkins MG Extended 00 ER) Once Release daily Tablet dosing; indicated for migraines. Divalproex sodium extended-r elease tab. Do not chew or crush. "Do Not Crush" Aspirin 2015-10 No Notes: Do Memor ia 0-29 not crush l 14:00: or chew. (Same As: Ecotrin) [facility] Notes: Memoria 0-29 (Same as: l 14:00: Norvasc) 24 HR 2015-10 No Notes: Memoria Divalproex 0-29 (Same as: l Sodium 500 14:00: Depakote Her adkins MG Extended 00 ER) Once Release daily Tablet dosing; indicated for migraines. Divalproex sodium extended-r elease tab. Do not chew or crush. "Do Not Crush" Aspirin 2015-10 No Notes: Do Memor ia 0-29 not crush l 14:00: or chew. (Same As: Ecotrin) Nitroglycer 2015-10 No Notes: Vance valerie in 0.4 MG 0-29 (Same l Sublingual 13:50: as:Nitroqu H ermann Tablet 00 ick, Nitrostat) "Do Not Crush" Sublingual tablet Nitroglycer 2015-10 No Notes: Vance valerie in 0.4 MG 0-29 (Same l Sublingual 13:50: as:Nitroqu H ermann Tablet 00 ick, Nitrostat) "Do Not Crush" Sublingual tablet Nitroglycer 2015-10 No Notes: Vance valerie in 0.4 MG 0-29 (Same l Sublingual 13:50: as:Nitroqu H ermann Tablet 00 ick, Nitrostat) "Do Not Crush" Sublingual tablet Nitroglycer 2015-10 No Notes: Vance valerie in 0.4 MG 0-29 (Same l Sublingual 13:50: as:Nitroqu H ermann Tablet 00 ick, Nitrostat) "Do Not Crush" Sublingual tablet Humulin 2015-10 No 45 unit, Memori a 70/30 0-29 Route: l 12:30: SUB-Q, Dwight 00 BID-Before Meals, Dosing Weight 113.636, kg, Start date: 08/14/16 7:30:00 CDT, Duration: 30 day, Stop date: 09/12/16 16:30:00 DIRECTOR OF [employer]AX SERVICES NovoLOG Mix 2015-10 No Notes: Vance valerie 70/30 0-29 Roll in l FlexPen 12:30: palms of Tony n 00 hands gently; Do not shake vigorously . (Same as: NovoLOG Mix) "single patient use only" WASTE: F/P - Black; E - Municipal Trash Bin Stable for 14 days at room temperatur e Expires in days from ____Date Humulin 2015-10 No 45 unit, Memori a 70/30 0 Route: l 12:30: SUB-Q, Nayan 00 BID-Before Meals, Dosing Weight 113.636, kg, Start date: 08/14/16 7:30:00 CDT, Duration: 30 day, Stop date: 09/12/16 16:30:00 DIRECT[employer] OF TAX SERVICES NovoLOG Mix 2015-10 No Notes: Vance valerie 70/30 0-29 Roll in l FlexPen 12:30: palms of Tony n 00 hands gently; Do not shake vigorously . (Same as: NovoLOG Mix) "single patient use only" WASTE: F/P - Black; E - Municipal Trash Bin Stable for 14 days at room temperatur e Expires in days from ____Date Humulin 2015-10 No 45 unit, Memori a 70/30 0-29 Route: l 12:30: SUB-Q, Dwight 00 BID-Before Meals, Dosing Weight 113.636, kg, Start date: 08/14/16 7:30:00 CDT, Duration: 30 day, Stop date: 09/12/16 16:30:00 DIRECT[employer] OF [employer]AX SERVICES NovoLOG Mix 2015-10 No Notes: Vance valerie 70/30 0-29 Roll in l FlexPen 12:30: palms of Tony n 00 hands gently; Do not shake vigorously . (Same as: NovoLOG Mix) "single patient use only" WASTE: F/P - Black; E - Municipal Trash Bin Stable for 14 days at room temperatur e Expires in days from ____Date Humulin 2015-10 No 45 unit, Memori a 70/30 0-29 Route: l 12:30: SUB-Q, Nayan 00 BID-Before Meals, Dosing Weight 113.636, kg, Start date: 08/14/16 7:30:00 CDT, Duration: 30 day, Stop date: 09/12/16 16:30:00 DIRECTOR OF TAX SERVICES NovoLOG Mix 2015-10 No Notes: Vance valerie [...] Syringe 0-29 25 mL, l 02:36: Route: Dwight 00 IVP, Drug Form: INJ, Dosing Weight 109.091, kg, PRN, PRN Blood Glucose Results, Start date: 08/13/16 21:36:00 CDT, Duration: 30 day, Stop date: 09/12/16 20:35:00 DIRECT[employer] OF TAX SERVICES Glucagon 2015-10 No 1 mg, Memoria 0-29 Route: IM, l 02:36: Drug form: Nayan 00 PDR/INJ, PRN, Dosing Weight 109.091, kg, PRN Blood Glucose Results, Start date: 08/13/16 21:36:00 CDT, Duration: 30 day, Stop date: 09/12/16 20:35:00 DIRECT[employer] OF [employer]AX SERVICES Insulin, 2015-10 No Notes: Memoria Aspart, 0-29 Roll in l Human 02:36: palms of Dwight 00 hands gently; Do not shake vigorously . (Same as: NovoLOG) "single patient use only" WASTE: F/P - Black; E - Municipal Trash Bin Stable for 28 days at room temperatur e. Expires in days from ____Date Dextrose 2015-10 No 12.5 gm, Memor ia 50% Syringe 0-29 25 mL, l 02:36: Route: Nayan 00 IVP, Drug Form: INJ, Dosing Weight 109.091, kg, PRN, PRN Blood Glucose Results, Start date: 08/13/16 21:36:00 CDT, Duration: 30 day, Stop date: 09/12/16 20:35:00 [employer] OF [employer]AX SERVICES Glucagon 2015-10 No 1 mg, Memoria 0-29 Route: IM, l 02:36: Drug form: Dwight 00 PDR/INJ, PRN, Dosing Weight 109.091, kg, PRN Blood Glucose Results, Start date: 08/13/16 21:36:00 CDT, Duration: 30 day, Stop date: 09/12/16 20:35:00 DIRECT[employer] OF TAX SERVICES Insulin, 2015-10 No Notes: Memoria Aspart, 0-29 Roll in l Human 02:36: palms of Nayan 00 hands gently; Do not shake vigorously . (Same as: NovoLOG) "single patient use only" WASTE: F/P - Black; E - Municipal Trash Bin Stable for 28 days at room temperatur e. Expires in days from ____Date Dextrose 2015-10 No 12.5 gm, Memor ia 50% Syringe 0-29 25 mL, l 02:36: Route: Nayan 00 IVP, Drug Form: INJ, Dosing Weight 109.091, kg, PRN, PRN Blood Glucose Results, Start date: 08/13/16 21:36:00 CDT, Duration: 30 day, Stop date: 09/12/16 20:35:00 DIRECT[employer] OF [employer]AX SERVICES Glucagon 2015-10 No 1 mg, Memoria 0-29 Route: IM, l 02:36: Drug form: Nayan 00 PDR/INJ, PRN, Dosing Weight 109.091, kg, PRN Blood Glucose Results, Start date: 08/13/16 21:36:00 CDT, Duration: 30 day, Stop date: 09/12/16 20:35:00 DIRECT[employer] OF [employer]AX SERVICES Insulin, 2015-10 No Notes: Memoria Aspart, 0-29 Roll in l Human 02:36: palms of Dwight 00 hands gently; Do not shake vigorously . (Same as: NovoLOG) "single patient use only" WASTE: F/P - Black; E - Municipal Trash Bin Stable for 28 days at room temperatur e. Expires in days from ____Date Dextrose 2015-10 No 12.5 gm, Memor ia 50% Syringe 0-29 25 mL, l 02:36: Route: Dwight 00 IVP, Drug Form: INJ, Dosing Weight 109.091, kg, PRN, PRN Blood Glucose Results, Start date: 08/13/16 21:36:00 CDT, Duration: 30 day, Stop date: 09/12/16 20:35:00 [employer]AX SERVICES Glucagon 2015-10 No 1 mg, Memoria 0-29 Route: IM, l 02:36: Drug form: Nayan 00 PDR/INJ, PRN, Dosing Weight 109.091, kg, PRN Blood Glucose Results, Start date: 08/13/16 21:36:00 CDT, Duration: 30 day, Stop date: 09/12/16 20:35:00 [employer]AX SERVICES Insulin, 2015-10 No Notes: Memoria Aspart, 0-29 Roll in l Human 02:36: palms of Nayan 00 hands gently; Do not shake vigorously . (Same as: NovoLOG) "single patient use only" WASTE: F/P - Black; E - Municipal Trash Bin Stable for 28 days at room temperatur e. Expires in days from ____Date Dicyclomine 2015-10 No Notes: Vance valerie 0-29 (Same as: l 02:00: Bentyl) Dicyclomine 2015-10 No Notes: Vance valerie 0-29 (Same as: l 02:00: Bentyl) Dicyclomine 2015-10 No Notes: Vance valerie 0-29 (Same as: l 02:00: Bentyl) Nayan 00 Dicyclomine 2015-10 No Notes: Vance valerie 0-29 (Same as: l 02:00: Bentyl) Nayan 00 Labetalol 2015-10 No Notes: Memori a 0-29 (Same as: l 00:30: Normodyne, Nayan 00 Trandate) Push over 2 minutes Give bolus over 2-3 minutes. Labetalol 2015-10 No Notes: Memori a 0-29 (Same as: l 00:30: Normodyne, Nayan 00 Trandate) Push over 2 minutes Give bolus over 2-3 minutes. Labetalol 2015-10 No Notes: Memori a 0-29 (Same as: l 00:30: Normodyne, Dwight 00 Trandate) Push over 2 minutes Give bolus over 2-3 minutes. Labetalol 2015-10 No Notes: Memori a 0-29 (Same as: l 00:30: Normodyne, Nayan 00 Trandate) Push over 2 minutes Give bolus over 2-3 minutes. Sodium 2015-10 No 250 mL, Memoria Chloride 0-29 Route: l 0.9% IV 00:21: IVPB, Nayan Start date: 08/13/16 19:21:00 CDT, Duration: 30 day, Stop date: 09/12/16 18:20:00 DIRECT[employer] OF [employer]AX SERVICES, PRN Line Flush BD Normal 2015-10 No Notes: Memori a Saline 0-29 (Same as: l Flush 00:21: BD Nayan Posiflush) Sodium 2015-10 No 250 mL, Memoria Chloride 0-29 Route: l 0.9% IV 00:21: IVPB, Dwight Start date: 08/13/16 19:21:00 CDT, Duration: 30 day, Stop date: 09/12/16 18:20:00 [employer]AX SERVICES, PRN Line Flush BD Normal 2015-10 No Notes: Memori a Saline 0-29 (Same as: l Flush 00:21: BD Nayan 00 Posiflush) Sodium 2015-10 No 250 mL, Memoria Chloride 0-29 Route: l 0.9% IV 00:21: IVPB, Nayan 00 Start date: 08/13/16 19:21:00 CDT, Duration: 30 day, Stop date: 09/12/16 18:20:00 DIRECT[employer] OF [employer]AX SERVICES, PRN Line Flush BD Normal 2015-10 No Notes: Memori a Saline 0-29 (Same as: l Flush 00:21: BD Nayan 00 Posiflush) Sodium 2015-10 No 250 mL, Memoria Chloride 0-29 Route: l 0.9% IV 00:21: IVPB, Nayan 00 Start date: 08/13/16 19:21:00 CDT, Duration: 30 day, Stop date: 09/12/16 18:20:00 [employer]AX SERVICES, PRN Line Flush BD Normal 2015-10 No Notes: Memori a Saline 0-29 (Same as: l Flush 00:21: BD Dwight Posiflush) 24 HR 2015-10 Yes 1,000 mg = Memori a Divalproex 0-28 2 tab, PO, l Sodium 500 23:44: BID, # 60 He rmann MG Extended 00 tab, 1 Release Refill(s) Tablet insulin 2015-10 Yes 45 units, Memor ia isophane-in 0-28 SUB-Q, l sulin 23:44: BID, 0 Nayan regular 00 Refill(s) human recombinant 70 units-30 units/mL subcutaneou s injection Divalproex 2015-10 Yes 500 mg = 1 M emoria Sodium 500 0-28 tab, PO, l MG Enteric 23:44: Lunch, # Her adkins Coated 00 90 tab, 0 Tablet Refill(s) 24 HR 2015-10 Yes 1,000 mg = Memori a Divalproex 0-28 2 tab, PO, l Sodium 500 23:44: BID, # 60 He rmann MG Extended 00 tab, 1 Release Refill(s) Tablet insulin 2015-10 Yes 45 units, Memor ia isophane-in 0-28 SUB-Q, l sulin 23:44: BID, 0 Dwight regular 00 Refill(s) human recombinant 70 units-30 units/mL subcutaneou s injection Divalproex 2015-10 Yes 500 mg = 1 M emoria Sodium 500 0-28 tab, PO, l MG Enteric 23:44: Lunch, # Her adkins Coated 00 90 tab, 0 Tablet Refill(s) 24 HR 2015-10 Yes 1,000 mg = Memori a Divalproex 0-28 2 tab, PO, l Sodium 500 23:44: BID, # 60 He rmann MG Extended 00 tab, 1 Release Refill(s) Tablet insulin 2015-10 Yes 45 units, Memor ia isophane-in 0-28 SUB-Q, l sulin 23:44: BID, 0 Nayan regular 00 Refill(s) human recombinant 70 units-30 units/mL subcutaneou s injection Divalproex 2015-10 Yes 500 mg = 1 M emoria Sodium 500 0-28 tab, PO, l MG Enteric 23:44: Lunch, # Her adkins Coated 00 90 tab, 0 Tablet Refill(s) 24 HR 2015-10 Yes 1,000 mg = Memori a Divalproex 0-28 2 tab, PO, l Sodium 500 23:44: BID, # 60 He rmann MG Extended 00 tab, 1 Release Refill(s) Tablet insulin 2015-10 Yes 45 units, Memor ia isophane-in 0-28 SUB-Q, l sulin 23:44: BID, 0 Nayan regular 00 Refill(s) human recombinant 70 units-30 units/mL subcutaneou s injection Divalproex 2015-10 Yes 500 mg = 1 M emoria Sodium 500 0-28 tab, PO, l MG Enteric 23:44: Lunch, # Her adkins Coated 00 90 tab, 0 Tablet Refill(s) Oxycodone 2015-10 No Notes: Memori a Hydrochlori 0-28 (Same as: l de 5 MG 23:37: Roxicodone Herm saqib Oral Tablet 00 ) Oxycodone 2015-10 No Notes: Memori a Hydrochlori 0-28 (Same as: l de 5 MG 23:37: Roxicodone Herm saqib Oral Tablet 00 ) Oxycodone 2015-10 No Notes: Memori a Hydrochlori 0-28 (Same as: l de 5 MG 23:37: Roxicodone Herm saqib Oral Tablet 00 ) Oxycodone 2015-10 No Notes: Memori a Hydrochlori 0-28 (Same as: l de 5 MG 23:37: Roxicodone Herm saqib Oral Tablet 00 ) Reglan 2015-10 No Notes: Memoria 0-28 (Same as: l 23:31: Reglan) Nayan Reglan 2015-10 No Notes: Memoria 0-28 (Same as: l 23:31: Reglan) Dwight Reglan 2015-10 No Notes: Memoria 0-28 (Same as: l 23:31: Reglan) Dwight 00 Reglan 2015-10 No Notes: Memoria 0-28 (Same as: l 23:31: Reglan) Dwight 00 Zofran 2015-10 No Notes: Memoria 0-28 [...] Duration: 30 day, Stop date: 09/12/16 18:25:00 [employer] OF TAX SERVICES Zofran 2015-10 No Notes: Memoria 0-28 (Same [...] Duration: 30 day, Stop date: 09/12/16 18:25:00 DIRECTOR OF TAX SERVICES Zofran 2015-10 No Notes: Memoria 0-28 (Same [...] Duration: 30 day, Stop date: 09/12/16 18:25:00 DIRECT[employer] OF TAX SERVICES Zofran 2015-10 No Notes: Memoria 0-28 (Same as: l 23:26: Zofran) Dwight 00 MEDICATION WASTE Product Size: 4 mg Product Wasted: ___ mg sodium 2015-10 No 1,000 mL, Memori a chloride 0-28 Rate: 100 l 0.9% 1000 23:26: ml/hr, Tony n ml INJ 00 Infuse 1,000 mL over: 10 hr, Route: IV, Dosing Weight 113.636 kg, Total Volume: 1,000, Start date: 08/13/16 18:26:00 CDT, Duration: 30 day, Stop date: 09/12/16 18:25:00 DIRECT[employer] OF [employer]AX SERVICES Reglan 2015-10 No 10 mg, Memoria 0-28 Route: l 22:32: IVP, Drug Nayan 00 form: INJ, ONCE, Dosing Weight 113.636, kg, Priority: STAT, Start date: 08/13/16 17:32:00 CDT, Stop date: 08/13/16 17:32:00 CDT Reglan 2015-10 No 10 mg, Memoria 0-28 Route: l 22:32: IVP, Drug Dwight 00 form: INJ, ONCE, Dosing Weight 113.636, kg, Priority: STAT, Start date: 08/13/16 17:32:00 CDT, Stop date: 08/13/16 17:32:00 CDT Reglan 2015-10 No 10 mg, Memoria 0-28 Route: l 22:32: IVP, Drug Dwight 00 form: INJ, ONCE, Dosing Weight 113.636, kg, Priority: STAT, Start date: 08/13/16 17:32:00 CDT, Stop date: 08/13/16 17:32:00 CDT Reglan 2015-10 No 10 mg, Memoria 0-28 Route: l 22:32: IVP, Drug Dwight 00 form: INJ, ONCE, Dosing Weight 113.636, kg, Priority: STAT, Start date: 08/13/16 17:32:00 CDT, Stop date: 08/13/16 17:32:00 CDT Zofran 2015-10 No Notes: Memoria 0-28 (Same as: l 22:10: Zofran Dwight 00 ODT) Zofran 2015-10 No Notes: Memoria 0-28 (Same as: l 22:10: Zofran Dwight 00 ODT) Zofran 2015-10 No Notes: Memoria 0-28 (Same as: l 22:10: Zofran Nayan 00 ODT) Zofran 2015-10 No Notes: Memoria 0-28 (Same as: l 22:10: Zofran Nayan 00 ODT) Reglan 2015-10 No Notes: Memoria 0-28 (Same as: l 22:06: Reglan) Nayan Reglan 2015-10 No Notes: Memoria 0-28 (Same as: l 22:06: Reglan) Nayan Reglan 2015-10 No Notes: Memoria 0-28 (Same as: l 22:06: Reglan) Dwight Reglan 2015-10 No Notes: Memoria 0-28 (Same as: l 22:06: Reglan) Dwight 00 Ketorolac 2015-10 No 4 days Memor ia 0-28 l 21:12: MEDICATION Nayan 00 WASTE Product Size: 30 mg Product Wasted: ___ mg Ketorolac 2015-10 No 4 days Memor ia 0-28 l 21:12: MEDICATION Dwight 00 WASTE Product Size: 30 mg Product Wasted: ___ mg Ketorolac 2015-10 No 4 days Memor ia 0-28 l 21:12: MEDICATION Nayan 00 WASTE Product Size: 30 mg Product Wasted: ___ mg Ketorolac 2015-10 No 4 days Memor ia 0-28 l 21:12: MEDICATION Nayan 00 WASTE Product Size: 30 mg Product Wasted: ___ mg Reglan 2015-10 No Notes: Memoria 0-28 (Same as: l 21:11: Reglan) Nayan Reglan 2015-10 No Notes: Memoria 0-28 (Same as: l 21:11: Reglan) Nayan Reglan 2015-10 No Notes: Memoria 0-28 (Same as: l 21:11: Reglan) Nayan Reglan 2015-10 No Notes: Memoria 0-28 (Same as: l 21:11: Reglan) Dwight 00 Ondansetron 2015-10 No Notes: Vance valerie 0-28 (Same as: l 19:08: Hebertan) Dwight 00 MEDICATION WASTE Product Size: 4 mg Product Wasted: ___ mg Saline 2015-10 No Notes: Memoria Flush 0.9% 0-28 (Same as: l 19:08: BD Dwight 00 Posiflush) Sodium 2015-10 No 1,000 mL, Memori a Chloride 0-28 2,000 l 0.154 19:08: ml/hr, Dwight MEQ/ML 00 Infuse Injectable Over: 30 Solution minutes, Route: IV, 1,000, Drug form: INJ, ONCE, Priority: STAT, Dosing Weight 113.636 kg, Start date: 08/13/16 14:08:00 CDT, Duration: 1 doses or times, Stop date: 08/13/16 14:08:00 CDT Ondansetron 2015-10 No Notes: Vance valerie 0-28 (Same as: l 19:08: Hebertan) Dwight 00 MEDICATION WASTE Product Size: 4 mg Product Wasted: ___ mg Saline 2015-10 No Notes: Memoria Flush 0.9% 0-28 (Same as: l 19:08: BD Dwight 00 Posiflush) Sodium 2015-10 No 1,000 mL, Memori a Chloride 0-28 2,000 l 0.154 19:08: ml/hr, Nayan MEQ/ML 00 Infuse Injectable Over: 30 Solution minutes, Route: IV, 1,000, Drug form: INJ, ONCE, Priority: STAT, Dosing Weight 113.636 kg, Start date: 08/13/16 14:08:00 CDT, Duration: 1 doses or times, Stop date: 08/13/16 14:08:00 CDT Ondansetron 2015-10 No Notes: Vance valerie 0-28 (Same as: l 19:08: Zoan) Nayan 00 MEDICATION WASTE Product Size: 4 mg Product Wasted: ___ mg Saline 2015-10 No Notes: Memoria Flush 0.9% 0-28 (Same as: l 19:08: BD Dwight 00 Posiflush) Sodium 2015-10 No 1,000 mL, Memori a Chloride 0-28 2,000 l 0.154 19:08: ml/hr, Dwight MEQ/ML 00 Infuse Injectable Over: 30 Solution minutes, Route: IV, 1,000, Drug form: INJ, ONCE, Priority: STAT, Dosing Weight 113.636 kg, Start date: 08/13/16 14:08:00 CDT, Duration: 1 doses or times, Stop date: 08/13/16 14:08:00 CDT Ondansetron 2015-10 No Notes: Vance valerei 0-28 (Same as: l 19:08: Zofran) Dwight 00 MEDICATION WASTE Product Size: 4 mg Product Wasted: ___ mg Saline 2015-10 No Notes: Memoria Flush 0.9% 0-28 (Same as: l 19:08: BD Nayan 00 Posiflush) Sodium 2015-10 No 1,000 mL, Memori a Chloride 0-28 2,000 l 0.154 19:08: ml/hr, Nayan MEQ/ML 00 Infuse Injectable Over: 30 Solution minutes, Route: IV, 1,000, Drug form: INJ, ONCE, Priority: STAT, Dosing Weight 113.636 kg, Start date: 08/13/16 14:08:00 CDT, Duration: 1 doses or times, Stop date: 08/13/16 14:08:00 CDT SURE 2015-10 Yes [facility] COMFORT 0-20 st INSULIN 00:00: [facility] 1 00 l mL 29 gauge x 1/2" syringe Diazepam 2 Yes 2 mg = 1 Mem oria MG Oral 4-13 tab, PO, l Tablet 02:34: BID, PRN Dwight [Valium] 00 Anxiety, X 5 day, # 10 tab, 0 Refill(s) Diazepam 2 Yes 2 mg = 1 Mem oria MG Oral 4-13 tab, PO, l Tablet 02:34: BID, PRN Dwight [Valium] 00 Anxiety, X 5 day, # 10 tab, 0 Refill(s) Diazepam 2 Yes 2 mg = 1 Mem oria MG Oral 4-13 tab, PO, l Tablet 02:34: BID, PRN Nayan [Valium] 00 Anxiety, X 5 day, # 10 tab, 0 Refill(s) Diazepam 2 Yes 2 mg = 1 Mem oria MG Oral 4-13 tab, PO, l Tablet 02:34: BID, PRN Nayan [Valium] 00 Anxiety, X 5 day, # 10 tab, 0 Refill(s) Ativan No Notes: Memoria 4-13 (Same as: l 00:31: Ativan) Nayan 00 Ativan No Notes: Memoria 4-13 (Same as: l 00:31: Ativan) Nayan 00 Ativan No Notes: Memoria 4-13 (Same as: l 00:31: Ativan) Ativan No Notes: Memoria 4-13 (Same as: l 00:31: Ativan) naproxen Yes 500mg Take 1 Tab Un perfecto (NAPROSYN) 06-22 by mouth 2 ity of 500 mg 00:00: (two) [place] tablet 00 times Medical daily with Branch meals. naproxen No 500mg Take 1 Tab U nivers (NAPROSYN) 06-22 by mouth 2 it y of 500 mg 00:00: 00:00 (two) [place] tablet 00 :00 times Medical daily with Branch meals. aripiprazol aripiprazol No aripiprazo [place] e 10 mg e 10 mg le 10 mg Medic al tablet TAKE tablet TAKE tablet Group ONE (1) ONE (1) TAKE ONE TABLET(S) TABLET(S) (1) BY MOUTH BY MOUTH TABLET(S) ONCE A DAY. ONCE A DAY. BY MOUTH ONCE A DAY. atorvastati atorvastati No atorvastat Dave n 10 mg n 10 mg in 10 mg Medic al tablet TAKE tablet TAKE tablet Group ONE (1) ONE (1) TAKE ONE TABLET(S) TABLET(S) (1) BY MOUTH BY MOUTH TABLET(S) ONCE A DAY. ONCE A DAY. BY MOUTH ONCE A DAY. atorvastati atorvastati No atorvastat [place] n 20 mg n 20 mg in 20 mg Medic al tablet tablet tablet Group baclofen 10 baclofen 10 No baclofen Dave mg tablet mg tablet 10 mg Medi compa tablet Group benzonatate benzonatate No benzonatat [place] 100 mg 100 mg e 100 mg Medical capsule capsule capsule Group carvedilol carvedilol No carvedilol Dave 3.125 mg 3.125 mg 3.125 mg Med ical tablet tablet tablet Group cephalexin cephalexin No cephalexin [place] 500 mg 500 mg 500 mg Medical capsule capsule capsule Group clopidogrel clopidogrel No clopidogre Dave 75 mg 75 mg l 75 mg Medical tablet TAKE tablet TAKE tablet Group ONE (1) ONE (1) TAKE ONE TABLET(S) TABLET(S) (1) BY MOUTH BY MOUTH TABLET(S) ONCE A DAY ONCE A DAY BY MOUTH FOR CAD. FOR CAD. ONCE A DAY FOR CAD. duloxetine duloxetine No duloxetine Dave 60 mg 60 mg 60 mg Medical capsule,del capsule,del capsule,de Group ayed ayed layed release release release TAKE ONE TAKE ONE TAKE ONE (1) (1) (1) CAPSULE(S) CAPSULE(S) CAPSULE(S) BY MOUTH BY MOUTH BY MOUTH TWICE A TWICE A TWICE A DAY. DAY. DAY. enoxaparin enoxaparin No enoxaparin [place] 40 mg/0.4 40 mg/0.4 40 mg/0.4 Medical mL mL mL Group subcutaneou subcutaneou subcutaneo s syringe s syringe us syringe Entresto 24 Entresto 24 No Entresto [place] mg-26 mg mg-26 mg 24 mg-26 Med ical tablet TAKE tablet TAKE mg tablet Group ONE (1) ONE (1) TAKE ONE TABLET(S) TABLET(S) (1) BY MOUTH BY MOUTH TABLET(S) TWICE A DAY TWICE A DAY BY MOUTH FOR CHF. FOR CHF. TWICE A DAY FOR CHF. escitalopra escitalopra No escitalopr [place] m 20 mg m 20 mg am 20 mg Medic al tablet tablet tablet Group famotidine famotidine No famotidine [place] 20 mg 20 mg 20 mg Medical tablet tablet tablet Group furosemide furosemide No furosemide Dave 20 mg 20 mg 20 mg Medical tablet tablet tablet Group furosemide furosemide No furosemide [place] 40 mg 40 mg 40 mg Medical tablet tablet tablet Group gabapentin gabapentin No gabapentin [place] 100 mg 100 mg 100 mg Medical capsule capsule capsule Group gabapentin gabapentin No gabapentin [place] 300 mg 300 mg 300 mg Medical capsule capsule capsule Group TAKE ONE TAKE ONE TAKE ONE (1) (1) (1) CAPSULE(S) CAPSULE(S) CAPSULE(S) BY MOUTH BY MOUTH BY MOUTH THREE TIMES THREE TIMES THREE A DAY. A DAY. TIMES A DAY. glipizide glipizide No glipizide [facility] 10 mg 10 mg 10 mg Medical tablet tablet tablet Group GlucaGen GlucaGen No GlucaGen [place] [place] HypoKit 1 HypoKit 1 HypoKit 1 Medical mg mg mg Group Injection Injection Injection Humalog Humalog No Humalog Stewar d KwikPen KwikPen KwikPen Medica l (U-100) (U-100) (U-100) Group Insulin 100 Insulin 100 Insulin unit/mL unit/mL 100 subcutaneou subcutaneou unit/mL s INJECT s INJECT subcutaneo FIVE (5) FIVE (5) us INJECT UNITS UNITS FIVE (5) SUBCUTANEOU SUBCUTANEOU UNITS LY WITH LY WITH SUBCUTANEO MEALS PLUS MEALS PLUS JOHAN WITH PER SSI PER SSI MEALS PLUS 150-200 3U, 150-200 3U, PER SSI 201-250 6U, 201-250 6U, 150-200 251-300 9U, 251-300 9U, 3U, 301-350 301-350 201-250 12U, 12U, 6U, 351-400 15U 351-400 15U 251-300 AND >400 AND >400 9U, 18U. 18U. 301-350 12U, 351-400 15U AND >400 18U. inControl inControl No inControl Dave Super Thin Super Thin Super Thin Medical Lancets 30 Lancets 30 Lancets 30 Group gauge gauge gauge insulin insulin No insulin Stewar d aspart aspart aspart Medical (U-100) 100 (U-100) 100 (U-100) Group unit/mL (3 unit/mL (3 100 mL) mL) unit/mL (3 subcutaneou subcutaneou mL) s pen s pen subcutaneo us pen Lantus Lantus No Lantus [place] Solostar Solostar Solostar Med ical U-100 U-100 U-100 Group Insulin 100 Insulin 100 Insulin unit/mL (3 unit/mL (3 100 mL) mL) unit/mL (3 subcutaneou subcutaneou mL) s pen s pen subcutaneo us pen Lantus Lantus No Lantus [place] U-100 U-100 U-100 Medical Insulin 100 Insulin 100 Insulin Group unit/mL unit/mL 100 subcutaneou subcutaneou unit/mL s solution s solution subcutaneo us solution Levemir Levemir No Levemir Stewar d FlexTouch FlexTouch FlexTouch Medical U-100 U-100 U-100 Group Insulin 100 Insulin 100 Insulin unit/mL (3 unit/mL (3 100 mL) mL) unit/mL (3 subcutaneou subcutaneou mL) s pen s pen subcutaneo us pen levofloxaci levofloxaci No levofloxac Dave n 500 mg n 500 mg in 500 mg Me dical tablet tablet tablet Group metoprolol metoprolol No metoprolol Dave succinate succinate succinate Medical ER 25 mg ER 25 mg ER 25 mg Aicha up tablet,exte tablet,exte tablet,ext nded nded ended release 24 release 24 release 24 hr hr hr mirtazapine mirtazapine No mirtazapin [place] 15 mg 15 mg e 15 mg Medical tablet tablet tablet Group nitroglycer nitroglycer No nitroglyce [place] in 0.4 mg in 0.4 mg rin 0.4 mg Medical sublingual sublingual sublingual Group tablet tablet tablet ondansetron ondansetron No ondansetro Dave 4 mg 4 mg n 4 mg Medical disintegrat disintegrat disintegra Group ing tablet ing tablet ting tablet potassium potassium No potassium [place] chloride ER chloride ER chloride Medical 20 mEq 20 mEq ER 20 mEq Group tablet,exte tablet,exte tablet,ext nded nded ended release(par release(par release(pa t/cryst) t/cryst) rt/cryst) ProAir HFA ProAir HFA No ProAir HFA Dave 90 90 90 Medical mcg/actuati mcg/actuati mcg/actuat Group on aerosol on aerosol ion inhaler inhaler aerosol inhaler ProAir ProAir No ProAir [place] RespiClick RespiClick RespiClick Medical 90 90 90 Group mcg/actuati mcg/actuati mcg/actuat on breath on breath ion breath activated activated activated TechLITE TechLITE No TechLITE Arie tomlin Pen Needle Pen Needle Pen Needle Medical 32 gauge x 32 gauge x 32 gauge x Group " " " tramadol 50 tramadol 50 No tramadol [place] mg tablet mg tablet 50 mg Medi compa tablet Group True Metrix True Metrix No True S teward Glucose Glucose Metrix Medical Test Strip Test Strip Glucose Group Test Strip zolpidem ER zolpidem ER No zolpidem Dave 12.5 mg 12.5 mg ER 12.5 mg Med ical tablet,exte tablet,exte tablet,ext Group nded nded ended release,mul release,mul release,mu tiphase tiphase ltiphase Advair Advair No Advair [place] Diskus 500 Diskus 500 Diskus 500 Medical mcg-50 mcg-50 mcg-50 Group mcg/dose mcg/dose mcg/dose powder for powder for powder for inhalation inhalation inhalation albuterol albuterol No albuterol Dave sulfate 2.5 sulfate 2.5 sulfate Medical mg/3 mL mg/3 mL 2.5 mg/3 Group (0.083 %) (0.083 %) mL (0.083 solution solution %) for for solution nebulizatio nebulizatio for n n nebulizati on Immunizations Ordered Immunization Filled Immunization Date Status Commen ts Source Name Name pneumococcal 2019-01-29 Completed [facility] 23-valent vaccine 22:37:00 [facility] pneumococcal 2019-01-29 Completed [facility] 23-valent vaccine 22:37:00 [facility] pneumococcal 2019-01-29 Completed [facility] 23-valent vaccine 22:37:00 [facility] pneumococcal 2019-01-29 Completed [facility] 23-valent vaccine 22:37:00 [facility] Vital Signs Vital Name Observation Time Observation Value Comments Source Systolic blood 2022-12-16 17:44:00 107 mm[Hg] [facility] Diastolic blood 2022-12-16 17:44:00 68 mm[Hg] [facility] Heart rate 2022-12-16 17:44:00 85 /min [facility] Body temperature 2022-12-16 17:44:00 35.83 Ashley [facility] Respiratory rate 2022-12-16 17:44:00 14 /min [facility] Oxygen saturation in 2022-12-16 17:44:00 93 /min [facility] blood by [facility] Pulse oximetry Branch Body weight 2022-12-15 09:07:00 108.863 kg [facility] BMI 2022-12-15 09:07:00 37.59 kg/m2 [facility] Body height 2022-12-15 02:01:00 170.2 cm [facility] Systolic blood 2022-11-30 20:00:00 142 mm[Hg] [facility] Diastolic blood 2022-11-30 20:00:00 96 mm[Hg] [facility] Heart rate 2022-11-30 20:00:00 86 /min [facility] Respiratory rate 2022-11-30 20:00:00 22 /min [facility] Oxygen saturation in 2022-11-30 20:00:00 95 /min [facility] Arterial blood by [facility] Pulse oximetry Branch Body temperature 2022-11-30 16:56:34 36.56 Ashley [facility] Body height 2022-11-30 16:15:00 170.2 cm [facility] Body weight 2022-11-30 16:15:00 115.667 kg [facility] BMI 2022-11-30 16:15:00 39.94 kg/m2 [facility] Systolic blood 2022-11-30 15:22:00 129 mm[Hg] [facility] Diastolic blood 2022-11-30 15:22:00 91 mm[Hg] [facility] Heart rate 2022-11-30 15:19:00 102 /min [facility] Respiratory rate 2022-11-30 15:19:00 30 /min [facility] Body height 2022-11-30 15:19:00 170.2 cm [facility] Body weight 2022-11-30 15:19:00 115.939 kg [facility] BMI 2022-11-30 15:19:00 40.03 kg/m2 [facility] Oxygen saturation in 2022-11-30 15:19:00 98 /min [facility] Arterial blood by [facility] Pulse oximetry Branch Heart rate 2022-11-22 21:26:00 96 /min [facility] Respiratory rate 2022-11-22 21:26:00 18 /min [facility] Oxygen saturation in 2022-11-22 21:26:00 99 /min [facility] Arterial blood by [facility] Pulse oximetry [place] Systolic blood 2022-11-22 18:18:00 121 mm[Hg] Univer sity of pressure [facility] Diastolic blood 2022-11-22 18:18:00 85 mm[Hg] [facility] Body temperature 2022-11-22 18:18:00 35.72 Ashley [facility] Body weight 2022-11-22 09:58:00 109.952 kg [facility] BMI 2022-11-22 09:58:00 37.97 kg/m2 [facility] Body height 2022-11-20 22:13:00 170.2 cm [facility] HEIGHT 2022-10-20 21:07:00 170.2 cm WEIGHT 2022-10-20 21:07:00 108.682 kg HEIGHT 2022-10-20 11:32:00 170.2 cm WEIGHT 2022-10-20 11:32:00 108.863 kg HEIGHT 2022-10-20 21:07:00 170.2 cm WEIGHT 2022-10-20 21:07:00 108.682 kg HEIGHT 2022-10-20 11:32:00 170.2 cm WEIGHT 2022-10-20 11:32:00 108.863 kg HEIGHT 2022-10-20 21:07:00 170.2 cm WEIGHT 2022-10-20 21:07:00 108.682 kg HEIGHT 2022-10-20 11:32:00 170.2 cm WEIGHT 2022-10-20 11:32:00 108.863 kg Height 2022-09-10 23:23:00 170.18 CM Weight 2022-09-10 23:23:00 108.86 KG Height 2022-08-30 13:30:00 170.18 CM Weight 2022-08-30 13:30:00 113.39 KG Height 2021-07-29 08:35:00 170.18 CM Weight 2021-07-29 08:35:00 99.79 KG Heart rate 2021-03-05 12:45:00 106 /min [facility] Respiratory rate 2021-03-05 12:45:00 18 /min [facility] Oxygen saturation in 2021-03-05 12:45:00 99 /min [facility] Arterial blood by [facility] Pulse oximetry Branch Systolic blood 2021-03-05 12:34:00 133 mm[Hg] Univer sity of pressure [facility] Diastolic blood 2021-03-05 12:34:00 86 mm[facility]Hg[facility] 2021-03-05 12:34:00 35.67 [facility] Body height 2021-03-04 17:00:00 172.7 cm [facility] Body weight 2021-03-04 17:00:00 117.935 kg [facility] BMI 2021-03-04 17:00:00 39.53 kg/m2 [facility] Height 2020-11-18 22:00:00 170.18 CM Weight 2020-11-18 22:00:00 6.2 KG Height 2020-11-10 10:45:00 170.18 CM Weight 2020-11-10 10:45:00 99.79 KG Height 2020-10-30 17:06:00 177.8 CM Weight 2020-10-30 17:06:00 113.39 KG Height 2020-09-10 15:08:00 170.18 CM Weight 2020-09-10 15:08:00 108.86 KG Weight 2020-03-14 21:02:00 125.64 KG Height 2019-12-18 20:25:00 170.18 CM Weight 2019-12-18 20:25:00 113.39 KG Heart rate 2022-10-21 17:10:00 105 /min [facility] Respiratory rate 2022-10-21 17:10:00 18 /min [facility] Oxygen saturation in 2022-10-21 17:10:00 95 /min [facility] Arterial blood by Medical Ce nter Pulse oximetry Systolic blood 2022-10-21 16:53:00 115 mm[Hg] [facility] Diastolic blood 2022-10-21 16:53:00 67 mm[Hg] [facility] Body temperature 2022-10-21 16:53:00 36.67 Ashley [facility] Body height 2022-10-20 21:07:00 170.2 cm [facility] Body weight 2022-10-20 21:07:00 108.682 kg [facility] BMI 2022-10-20 21:07:00 37.53 kg/m2 [facility] Height 2020-07-03 19:29:00 170.18 cm [facility] Weight 2020-07-03 19:29:00 [facility] BMI Calculated 2020-07-03 19:29:00 [facility] Height 2020-05-28 16:26:00 170.18 cm [facility] Weight 2020-05-28 16:26:00 [facility] BMI Calculated 2020-05-28 16:26:00 [facility] Temperature Oral (F) 2020-04-10 19:40:00 98.1 F [facility] Heart Rate 2020-04-10 19:40:00 [facility] Respitory Rate 2020-04-10 19:40:00 [facility] Systolic (mm Hg) 2020-04-10 19:40:00 Vance [facility] Diastolic (mm Hg) 2020-04-10 19:40:00 [facility] Height 2020-04-10 15:21:00 175.26 cm [facility] BMI Calculated 2020-04-10 15:21:00 [facility] Weight 2020-04-10 15:21:00 [facility] Systolic (mm Hg) 2020-04-10 15:21:00 Vance [facility] Diastolic (mm Hg) 2020-04-10 15:21:00 [facility] Heart Rate 2020-04-10 15:21:00 [facility] Respitory Rate 2020-04-10 15:21:00 [facility] Temperature Oral (F) 2020-04-10 15:21:00 97.8 F [facility] Height 2020-04-03 20:44:00 170.18 cm [facility] Weight 2020-04-03 20:44:00 [facility] BMI Calculated 2020-04-03 20:44:00 [facility] Systolic (mm Hg) 2020-04-03 15:52:00 [facility]ance [facility] Diastolic (mm Hg) 2020-04-03 15:52:00 [facility] Heart Rate 2020-04-03 15:52:00 [facility] Height 2020-04-03 15:52:00 175.26 cm [facility] Weight 2020-04-03 15:52:00 [facility] BMI Calculated 2020-04-03 15:52:00 [facility] Respitory Rate 2019-06-28 18:00:00 [facility] Respitory Rate 2019-06-28 17:00:00 [facility] Systolic (mm Hg) 2019-06-28 17:00:00 Vance rial [facility] Diastolic (mm Hg) 2019-06-28 17:00:00 [facility] Temperature Oral (F) 2019-06-28 17:00:00 98.4 F [facility] Respitory Rate 2019-06-28 16:00:00 [facility] Systolic (mm Hg) 2019-06-28 16:00:00 [facility]ance [facility] Diastolic (mm Hg) 2019-06-28 16:00:00 [facility] Systolic (mm Hg) 2019-06-28 15:00:00 [facility] Diastolic (mm Hg) 2019-06-28 15:00:00 [facility] Height 2019-06-28 10:00:00 170.18 cm [facility] Temperature Oral (F) 2019-06-28 09:00:00 98.4 F [facility] Temperature Oral (F) 2019-06-28 05:00:00 98 F [facility] Height 2019-06-27 14:32:00 170.18 cm [facility] Height 2019-06-27 13:02:00 170.18 cm [facility] Heart Rate 2019-06-26 16:24:00 [facility] BMI Calculated 2019-06-26 16:24:00 [facility] Weight 2019-06-26 16:24:00 [facility] Systolic (mm Hg) 2019-01-29 20:19:00 [facility]ance [facility] Diastolic (mm Hg) 2019-01-29 20:19:00 [facility] Heart Rate 2019-01-29 20:19:00 [facility] Temperature Oral (F) 2019-01-29 20:19:00 98.4 F [facility] Respitory Rate 2019-01-29 20:19:00 [facility] Respitory Rate 2019-01-29 16:40:00 [facility] Temperature Oral (F) 2019-01-29 16:40:00 98.2 F [facility] Heart Rate 2019-01-29 16:40:00 [facility] Systolic (mm Hg) 2019-01-29 16:40:00 Vance rial [facility] Diastolic (mm Hg) 2019-01-29 16:40:00 Mem [facility] Respitory Rate 2019-01-29 12:40:00 [facility] Systolic (mm Hg) 2019-01-29 12:27:00 [facility]ance [facility] Diastolic (mm Hg) 2019-01-29 12:27:00 [facility] Temperature Oral (F) 2019-01-29 12:27:00 97.9 F [facility] Heart Rate 2019-01-29 12:27:00 [facility] BMI Calculated 2019-01-26 11:13:00 [facility] Weight 2019-01-26 11:13:00 [facility] Height 2019-01-26 11:13:00 170.18 cm [facility] Weight 2019-01-26 05:04:00 [facility] BMI Calculated 2019-01-26 05:04:00 [facility] Height 2019-01-26 05:04:00 177.8 cm [facility] Respitory Rate 2017-08-29 01:30:00 [facility] Respitory Rate 2017-08-29 01:00:00 [facility] Respitory Rate 2017-08-29 00:30:00 [facility] Systolic (mm Hg) 2017-08-28 23:57:00 [facility]ance [facility] Diastolic (mm Hg) 2017-08-28 23:57:00 [facility] Temperature Oral (F) 2017-08-28 23:57:00 97.8 F [facility] Systolic (mm Hg) 2017-08-28 23:30:00 Vance [facility] Diastolic (mm Hg) 2017-08-28 23:30:00 [facility] Systolic (mm Hg) 2017-08-28 22:00:00 Vance [facility] Diastolic (mm Hg) 2017-08-28 22:00:00 [facility] BMI Calculated 2017-08-28 21:02:00 [facility] Weight 2017-08-28 21:02:00 [facility] Height 2017-08-28 21:02:00 175.26 cm [facility] Heart Rate 2017-08-28 21:02:00 [facility] Temperature Oral (F) 2017-08-28 21:02:00 98.3 F [facility] Respitory Rate 2016-12-27 10:52:00 [facility] Systolic (mm Hg) 2016-12-27 10:52:00 [facility]ance [facility] Diastolic (mm Hg) 2016-12-27 10:52:00 [facility] Systolic (mm Hg) 2016-12-27 10:08:00 Avnce rial [facility] Diastolic (mm Hg) 2016-12-27 10:08:00 [facility] Respitory Rate 2016-12-27 10:08:00 [facility] Temperature Oral (F) 2016-12-27 10:08:00 98.8 F [facility] Respitory Rate 2016-12-27 09:03:00 [facility] Systolic (mm Hg) 2016-12-27 09:03:00 [facility]ance [facility] Diastolic (mm Hg) 2016-12-27 09:03:00 [facility] Temperature Oral (F) 2016-12-27 08:15:00 98.4 F [facility] Heart Rate 2016-12-27 06:55:00 [facility] Weight 2016-12-27 05:48:00 [facility] BMI Calculated 2016-12-27 05:48:00 [facility] Height 2016-12-27 05:48:00 170.18 cm [facility] Temperature Oral (F) 2016-12-27 05:48:00 98.2 F [facility] Heart Rate 2016-12-27 05:48:00 [facility] Systolic (mm Hg) 2016-12-26 23:27:00 [facility]ance [facility] Diastolic (mm Hg) 2016-12-26 23:27:00 [facility] Temperature Oral (F) 2016-12-26 23:27:00 98 F [facility] Heart Rate 2016-12-26 23:27:00 [facility] Respitory Rate 2016-12-26 23:27:00 [facility] Weight 2016-12-26 22:48:00 [facility] Heart Rate 2016-12-26 22:48:00 [facility] Respitory Rate 2016-12-26 22:48:00 [facility] Temperature Oral (F) 2016-12-26 22:48:00 98.2 F [facility] Systolic (mm Hg) 2016-12-26 22:48:00 [facility]ance [facility] Diastolic (mm Hg) 2016-12-26 22:48:00 [facility] Height 2016-12-26 22:48:00 165.1 cm [facility] BMI Calculated 2016-12-26 22:48:00 [facility] Systolic (mm Hg) 2016-11-22 05:10:00 Vance [facility] Diastolic (mm Hg) 2016-11-22 05:10:00 [facility] Respitory Rate 2016-11-22 05:10:00 [facility] Heart Rate 2016-11-22 05:10:00 [facility] Temperature Oral (F) 2016-11-22 05:10:00 97.9 F [facility] Heart Rate 2016-11-22 04:30:00 [facility] Respitory Rate 2016-11-22 04:30:00 [facility] Systolic (mm Hg) 2016-11-22 04:30:00 [facility]ance [facility] Diastolic (mm Hg) 2016-11-22 04:30:00 [facility] Heart Rate 2016-11-22 03:30:00 [facility] Respitory Rate 2016-11-22 03:30:00 [facility] Systolic (mm Hg) 2016-11-22 03:30:00 [facility] Diastolic (mm Hg) 2016-11-22 03:30:00 [facility] Temperature Oral (F) 2016-11-22 02:26:00 98 F [facility] Weight 2016-11-22 02:00:00 [facility] Temperature Oral (F) 2016-11-22 02:00:00 98.2 F [facility] Systolic (mm Hg) 2016-11-13 10:48:00 [facility]ance [facility] Diastolic (mm Hg) 2016-11-13 10:48:00 [facility] Respitory Rate 2016-11-13 10:48:00 [facility] Heart Rate 2016-11-13 10:48:00 [facility] Temperature Oral (F) 2016-11-13 10:48:00 97.5 F [facility] Height 2016-11-13 05:39:00 170.18 cm [facility] BMI Calculated 2016-11-13 05:39:00 [facility] Weight 2016-11-13 05:39:00 [facility] Temperature Oral (F) 2016-11-13 05:39:00 98.2 F [facility] Respitory Rate 2016-11-13 05:39:00 [facility] Heart Rate 2016-11-13 05:39:00 [facility] Systolic (mm Hg) 2016-11-13 05:39:00 [facility]ance [facility] Diastolic (mm Hg) 2016-11-13 05:39:00 [facility] Respitory Rate 2016-11-03 20:44:00 [facility] Temperature Oral (F) 2016-11-03 20:44:00 97.8 F [facility] Heart Rate 2016-11-03 20:44:00 [facility] Systolic (mm Hg) 2016-11-03 20:44:00 [facility] Diastolic (mm Hg) 2016-11-03 20:44:00 [facility] Systolic (mm Hg) 2016-11-03 18:00:00 [facility] Diastolic (mm Hg) 2016-11-03 18:00:00 [facility] Respitory Rate 2016-11-03 15:50:00 [facility] Heart Rate 2016-11-03 15:50:00 [facility] Systolic (mm Hg) 2016-11-03 15:50:00 [facility] Diastolic (mm Hg) 2016-11-03 15:50:00 [facility] BMI Calculated 2016-11-03 15:40:00 [facility] Weight 2016-11-03 15:40:00 [facility] Height 2016-11-03 15:40:00 170.18 cm [facility] Respitory Rate 2016-11-03 15:40:00 [facility] Temperature Oral (F) 2016-11-03 15:40:00 97.7 F [facility] Heart Rate 2016-11-03 15:40:00 [facility] Systolic (mm Hg) 2016-08-14 15:15:00 [facility] Diastolic (mm Hg) 2016-08-14 15:15:00 [facility] Respitory Rate 2016-08-14 15:15:00 [facility] Heart Rate 2016-08-14 15:15:00 [facility] Temperature Oral (F) 2016-08-14 15:15:00 98.9 F [facility] Respitory Rate 2016-08-14 12:28:00 [facility] Systolic (mm Hg) 2016-08-14 12:28:00 [facility] Diastolic (mm Hg) 2016-08-14 12:28:00 [facility] Heart Rate 2016-08-14 12:28:00 [facility] Temperature Oral (F) 2016-08-14 12:28:00 98.8 F [facility] Systolic (mm Hg) 2016-08-14 08:22:00 [facility] Diastolic (mm Hg) 2016-08-14 08:22:00 [facility] Heart Rate 2016-08-14 08:22:00 [facility] Temperature Oral (F) 2016-08-14 08:22:00 99 F [facility] Respitory Rate 2016-08-14 08:22:00 [facility] BMI Calculated 2016-08-13 23:38:00 Castill[place]i [facility] Weight 2016-08-13 23:38:00 [facility] Height 2016-08-13 23:38:00 172.72 cm [facility] Heart Rate 2016-01-28 03:00:00 [facility] Systolic (mm Hg) 2016-01-28 03:00:00 [facility]ance [facility] Diastolic (mm Hg) 2016-01-28 03:00:00 [facility] Temperature Oral (F) 2016-01-28 03:00:00 97.5 F [facility] Respitory Rate 2016-01-28 03:00:00 [facility] Systolic (mm Hg) 2016-01-28 00:45:00 [facility] Diastolic (mm Hg) 2016-01-28 00:45:00 [facility] Respitory Rate 2016-01-28 00:45:00 [facility] Temperature Oral (F) 2016-01-28 00:45:00 98.1 F [facility] Heart Rate 2016-01-28 00:45:00 [facility] BMI Calculated 2016-01-27 22:43:00 [facility] Weight 2016-01-27 22:43:00 [facility] Height 2016-01-27 22:43:00 170.18 cm [facility] Heart Rate 2016-01-27 22:43:00 [facility] Temperature Oral (F) 2016-01-27 22:43:00 98.7 F [facility] Respitory Rate 2016-01-27 22:43:00 [facility] Systolic (mm Hg) 2016-01-27 22:43:00 [facility] Diastolic (mm Hg) 2016-01-27 22:43:00 [facility] Procedures Procedure Date / Time Performing Clinician Source Performed POCT GLUCOSE (AUTOMATED) 2022-12-16 22:31:00 Ruben Bello [facility] POCT GLUCOSE (AUTOMATED) 2022-12-16 18:20:00 Ruben Bello [facility] POCT GLUCOSE (AUTOMATED) 2022-12-16 13:57:00 Ruben Bello [facility] BASIC METABOLIC PANEL (NA, 2022-12-16 11:48:00 Alverto Short K. HDemetrio [facility] K, CL, CO2, GLUCOSE, BUN, Medica l Branch CREATININE, CA) LIPID PANEL ([id number])(TOTAL 2022-12-16 11:48:00 James Bermudez [facility] CHOLESTEROL, [facility] TRIGLYCERIDES, HDL) N-TERMINAL PRO-BNP 2022-12-16 11:48:00 Alverto Short.HDemetrio [facility] POCT GLUCOSE (AUTOMATED) 2022-12-16 09:46:00 Ruben Bello [facility] POCT GLUCOSE (AUTOMATED) 2022-12-16 02:07:00 Ruben Bello [facility] POCT GLUCOSE (AUTOMATED) 2022-12-15 22:39:00 Ruben Bello [facility] POCT GLUCOSE (AUTOMATED) 2022-12-15 17:11:00 Ruben Bello [facility] POCT GLUCOSE (AUTOMATED) 2022-12-15 13:23:00 Ruben Bello [facility] CREATINE KINASE 2022-12-15 11:56:00 Vinay [facility] URIC ACID 2022-12-15 11:56:00 Vinay conor [facility] MAGNESIUM 2022-12-15 11:56:00 Vinay [facility] TROPONIN I 2022-12-15 11:56:00 Vinay [facility] COMP. METABOLIC PANEL 2022-12-15 11:56:00 Mariano Mclean [facility] ([id number]) [facility] SEDIMENTATION RATE 2022-12-15 11:56:00 Mariano Mclean [facility] CBC WITH DIFF 2022-12-15 11:56:00 Vinay [facility] N-TERMINAL PRO-BNP 2022-12-15 11:56:00 Vinay conor [facility] PHOSPHORUS 2022-12-15 05:32:00 Vinay conor [facility] MAGNESIUM 2022-12-15 05:32:00 Vinay [facility] TROPONIN I 2022-12-15 05:32:00 Vinay conor [facility] LIPID PANEL ([id number])(TOTAL 2022-12-15 05:32:00 Mariano Mclean [facility] TRIGLYCERIDES, HDL) PROTHROMBIN TIME / INR 2022-12-15 05:32:00 Mariano Mclean [facility] PROCALCITONIN 2022-12-15 05:32:00 Vinay conor [facility] AC PANEL 21 + LACTIC ACID 2022-12-15 05:32:00 [facility]OMATED) 2022-12-15 05:30:00 Ace, Ruben [facility] URINE DRUG (IMMUNOASSAY) - 2022-12-15 05:26:00 Mariano Mclean [facility] COMPREHENSIVE DRUG SCREEN Medica l Branch UREA NITROGEN, URINE 2022-12-15 05:26:00 Mariano Mclean [facility] RANDOM [facility] SODIUM, URINE RANDOM 2022-12-15 05:26:00 Mariano Mclean [facility] PROTEIN CREAT RATIO URINE 2022-12-15 05:26:00 Mariano Mclean [facility] POCT GLUCOSE (AUTOMATED) 2022-12-15 04:13:00 Ruben Bello [facility] URINALYSIS 2022-12-14 17:53:00 Shawn Bob [facility] HB ECG ROUTINE & RHYTHM 2022-12-14 17:47:58 Shawn Bob [facility] STRIP [facility] XR CHEST 1 VW 2022-12-14 16:52:15 Shawn Bob [facility] CK (CREATINE KINASE) + MB 2022-12-14 16:33:00 Shawn Bob [facility] TROPONIN I 2022-12-14 16:33:00 Shawn Bob [facility] COMP. METABOLIC PANEL 2022-12-14 16:33:00 Shawn Bob [facility] ([id number]) [facility] CBC WITH DIFF 2022-12-14 16:33:00 Shawn Bob [facility] GLYCOSYLATED HEMOGLOBIN 2022-12-14 16:33:00 Mariano Mclean [facility] (A1C) [facility] N-TERMINAL PRO-BNP 2022-12-14 16:33:00 Shawn Bob [facility] CONSENT/REFUSAL FOR 2022-12-14 16:13:05 Doctor Unassigned, [facility] DIAGNOSIS AND TREATMENT [facility] EKG-12 LEAD 2022-11-30 20:47:41 Vinod Franco [facility] [place] CT CHEST PULMONARY 2022-11-30 18:59:38 Vinod Franco [facility] ANGIOGRAM Medical Branch XR CHEST 2 VW 2022-11-30 17:15:03 Vinod Franco [facility] TROPONIN I 2022-11-30 16:48:00 Vinod Franco [facility] COMP. METABOLIC PANEL 2022-11-30 16:48:00 Vinod Franco [facility] ([id number]) Medical Branch CBC WITH DIFF 2022-11-30 16:48:00 Joan [facility] N-TERMINAL PRO-BNP 2022-11-30 16:48:00 Joan Salisbury [facility] ASSIGNMENT OF BENEFITS 2022-11-30 15:08:47 Doctor Unassigned, [facility] POCT GLUCOSE (AUTOMATED) 2022-11-22 18:19:00 Ruben Bello [facility] POCT GLUCOSE (AUTOMATED) 2022-11-22 14:19:00 Ruben Bello [facility] POTASSIUM SERUM 2022-11-22 07:42:00 [facility] MAGNESIUM 2022-11-22 07:42:00 [facility] BASIC METABOLIC PANEL (NA, 2022-11-22 07:42:00 Bernarda Fox [facility] K, CL, CO2, GLUCOSE, BUN, Medica l Branch CREATININE, CA) CBC WITH DIFF 2022-11-22 06:29:00 Bernarda Fox [facility] POCT GLUCOSE (AUTOMATED) 2022-11-22 06:00:00 Ruben Bello [facility] POCT GLUCOSE (AUTOMATED) 2022-11-22 02:32:00 Ruben Bello [facility] TROPONIN I 2022-11-21 23:02:00 Alverto Short [facility] N-TERMINAL PRO-BNP 2022-11-21 23:02:00 [facility] GLYCOSYLATED HEMOGLOBIN 2022-11-21 23:01:00 Bernarda Fox [facility] (A1C) [facility] POCT GLUCOSE (AUTOMATED) 2022-11-21 22:24:00 Ruben Bello [facility] POCT GLUCOSE (AUTOMATED) 2022-11-21 17:27:00 Ruben Bello [facility] TRANSTHORACIC ECHO (TTE) 2022-11-21 16:37:00 Ruben Bello [facility] COMPLETE W/ CONTRAST Medical [facility] POCT GLUCOSE (AUTOMATED) 2022-11-21 13:25:00 Ruben Bello [facility] GLYCOSYLATED HEMOGLOBIN 2022-11-21 10:52:00 Ha Kincaid [facility] (A1C) [facility] POCT GLUCOSE (AUTOMATED) 2022-11-21 02:22:00 Ruben Bello [facility] RAPID INFLUENZA A/B 2022-11-20 20:24:00 Kendall Weaver [facility] COVID-19 (ID NOW RAPID 2022-11-20 20:24:00 Kendall Weaver [facility] TESTING) Medical Branch LAB ONLY COVID 2022-11-20 20:24:00 Singer Kendall [facility] INTERPRETATION [facility] POCT GLUCOSE (AUTOMATED) 2022-11-20 20:23:00 Kendall Weaver [facility] CT CHEST PULMONARY 2022-11-20 19:11:59 Singer Kendall [facility] ANGIOGRAM Medical Branch HB ECG ROUTINE & RHYTHM 2022-11-20 18:48:57 Singer [facility] STRIP Medical Branch TROPONIN I 2022-11-20 18:48:00 Singer [facility] COMP. METABOLIC PANEL 2022-11-20 18:48:00 Kendall Weaver [facility] ([id number]) [facility] CBC WITH DIFF 2022-11-20 18:48:00 Singer [facility] N-TERMINAL PRO-BNP 2022-11-20 18:48:00 Singer Kendall [facility] NOTICE OF PRIVACY 2022-11-20 18:21:06 Doctor Unassigned, [facility] PRACTICES [facility] [place] CONSENT/REFUSAL FOR 2022-11-20 18:20:15 Doctor Unassoneyda, [facility] DIAGNOSIS AND TREATMENT [facility] POCT-GLUCOSE METER 2022-10-21 20:09:00 Allan [facility] POCT-GLUCOSE METER 2022-10-21 17:10:00 Allan [facility] POCT-GLUCOSE METER 2022-10-21 12:00:00 Allan [facility] POCT-GLUCOSE METER 2022-10-21 08:31:00 Allan [facility] COMPREHENSIVE METABOLIC 2022-10-21 03:48:00 Tressa Lemus [facility] I [facility] PANEL Center CBC W/PLT COUNT & AUTO 2022-10-21 03:48:[address] [facility] DIFFERENTIAL Center MAGNESIUM 2022-10-21 03:48:00 Allan [facility] CBC W/PLT COUNT & AUTO 2022-10-21 03:48:00 Allan, [facility] POCT-GLUCOSE METER 2022-10-20 20:55:00 Allan [facility] CTA AAA AND RUNOFF 2022-10-20 18:32:00 Verónica Saleh [facility] SARS-COV2/RT-PCR ([facility] & 2022-10-20 12:20:00 [facility] REF LABS) [facility] METABOLIC 2022-10-20 12:20:00 [facility] PANEL Shakira Center CBC W/PLT COUNT & AUTO 2022-10-20 12:20:00 [facility] DIFFERENTIAL [facility] PROTHROMBIN TIME/INR 2022-10-20 12:20:00 [facility] CBC W/PLT COUNT & AUTO 2022-10-20 12:20:00 [facility] DIFFERENTIAL [facility] REPOS LT UPPER FEMUR 2022-08-31 00:00:00 [facility] IF PERQ Center POCT GLUCOSE (AUTOMATED) 2021-03-05 12:36:00 [facility] PHOSPHORUS 2021-03-05 09:18:00 Vinay [facility] CREATINE KINASE 2021-03-05 09:18:00 Vinay [facility] MAGNESIUM 2021-03-05 09:18:00 Vinay [facility] TROPONIN I 2021-03-05 09:18:00 Alverto Short [facility] THYROID STIMULATING 2021-03-05 09:18:00 Vinay conor [facility] HORMONE [facility] COMP. METABOLIC PANEL 2021-03-05 09:18:00 Vinay [facility] ([id number]) [facility] LIPID PANEL ([id number])(TOTAL 2021-03-05 09:18:00 Alverto Short.H Demetrio [facility] TRIGLYCERIDES, HDL) CBC WITH DIFF 2021-03-05 09:18:00 Vinay [facility] N-TERMINAL PRO-BNP 2021-03-05 09:18:00 Vinay [facility] TROPONIN I 2021-03-05 07:21:00 Vinay [facility] POCT GLUCOSE (AUTOMATED) 2021-03-05 04:40:00 Gloria Corona [facility] POCT GLUCOSE (AUTOMATED) 2021-03-05 01:41:00 Gloria Corona [facility] POCT GLUCOSE (AUTOMATED) 2021-03-04 22:24:00 Gloria Corona [facility] POCT GLUCOSE (AUTOMATED) 2021-03-04 21:26:00 Gloria Corona [facility] POCT GLUCOSE (AUTOMATED) 2021-03-04 17:04:00 Gloria Corona [facility] POCT GLUCOSE (AUTOMATED) 2021-03-04 16:15:00 Kendall Weaver [facility] XR CHEST 1 VW 2021-03-04 15:07:08 Weaver, [facility] URINALYSIS 2021-03-04 14:36:00 Singer [facility] TROPONIN I 2021-03-04 14:22:00 Singer [facility] COMP. METABOLIC PANEL 2021-03-04 14:22:00 Kendall Weaver [facility] ([id number]) Medical Branch CBC WITH DIFF 2021-03-04 14:22:00 Singer [facility] GLYCOSYLATED HEMOGLOBIN 2021-03-04 14:22:00 Gloria Corona [facility] (A1C) Medical Branch N-TERMINAL PRO-BNP 2021-03-04 14:22:00 Kendall Weaver [facility] Branch COVID-19 (ID NOW RAPID 2021-03-04 13:59:00 Singer [facility] TESTING) Medical Branch HB ECG ROUTINE & RHYTHM 2021-03-04 13:55:12 Singer [facility] STRIP Medical Branch NOTICE OF PRIVACY 2021-03-04 13:44:26 Doctor Unassigned, [facility] PRACTICES [facility] CONSENT/REFUSAL FOR 2021-03-04 13:43:48 [facility], [facility] DIAGNOSIS AND TREATMENT [facility] [place] 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:00: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 adkins pancreas<sup>1</sup> Exploratory 2006-10-17 06:00: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 adkins laparotomy<sup>2</sup> Preprosthodontic oral 2006-10-17 06:00:00 Andria Barrios surgery<sup>4</sup> Leg repair<sup>3</sup> 2006-10-17 06:00:00 Matthias Spicer Procedure on upper arm 2002-10-17 06:00:00 Matthias [facility] Planned Activity Planned Date Details Comments Source Future Scheduled 2024-03-[address] [facility]:00 (procedure) [code = Medical Center 44967295] Future Scheduled 2023-10-[address] [facility] Test 00:00:00 Counseling and Medical Cente r Screening (12+) [code = Tobacco Cessation Counseling and Screening (12+)] Future Scheduled 2022-10-[address] [facility] Test 00:00:00 (12+) [code = Medical Center DEPRESSION SCREENING (12+)] Future Scheduled 2022-09-29 COVID-19 VACCINE (#1) [facility] Test 10:11:49 [code = COVID-19 VACCINE (#1)] Future Scheduled 2022-09-29 COLONOSCOPY SCREENING [facility] Test 10:11:49 [code = COLONOSCOPY SCREENING] Future Scheduled 2022-09-29 SHINGLES VACCINES (1 Met [facility] Test 10:11:49 of 2) [code = SHINGLES VACCINES (1 of 2)] Future Scheduled 2022-09-29 INFLUENZA VACCINE [facility] Test 10:11:49 [code = INFLUENZA VACCINE] Future Scheduled 2022-07-17 IMM [facility]enza [facility]al [facility] 00:00:00 (>/= 19 yrs) [code = IMM Influenza Seasonal (>/= 19 yrs)] Future Scheduled 2022-06-17 INFLUENZA VACCINE (#1[facility]00 [code = INFLUENZA Medical Ce nter VACCINE (#1)] Future Scheduled 2016 [facility]00 malignant neoplasm of colon (procedure) [code = 198067602] Future Scheduled 2016 SHINGLES VACCINES ([address] [facility] Test 00:00:00 of 2) [code = SHINGLES Medic al Center VACCINES (1 of 2)] Future Scheduled 1985 DTAP/TDAP/TD VACCINES [facility] 00:00:00 (1 - Tdap) [code = Medical C enter DTAP/TDAP/TD VACCINES (1 - Tdap)] Future Scheduled 1984 HEPATITIS C SCREENING [facility] 00:00:00 [code = HEPATITIS C Medical Center SCREENING] Future Scheduled [address] [facility] Test 00:00:00 0-64 YRS (1 - PCV) Medical C enter [code = PNEUMOCOCCAL VACCINE 0-64 YRS (1 - PCV)] Future Scheduled 1967-06-11 COVID-19 Vaccine (#1) [facility] 00:00:00 [code = COVID-19 Vaccine (#1)] Future Scheduled 1967-06-11 COVID-19 VACCINE (#1) [facility] 00:00:00 [code = COVID-[address] VACCINE (#1)] Future Scheduled [address] 00:00:00 (combo) [code = CT Medical C enter Colonography (combo)] Future Scheduled [address] [facility] 00:[facility]:00 malignant neoplasm of Medica l Center colon (procedure) [code = 501821909] Future Scheduled [address] [facility] 00:00:00 malignant neoplasm of Medica l Center colon (procedure) [code = 710035897] Future Scheduled [address] [facility] 00:00:00 malignant neoplasm of Medica l Center colon (procedure) [code = 593778268] Future Scheduled [address] [facility] 00:00:00 malignant neoplasm of Medica l Center colon (procedure) [code = 975101195] Future Scheduled 1966 Sigmoidoscopy [code [facility] Sigmoidoscopy] Medical Cente r Encounters Start End Encounter Admission Attending Care Care Encounter Source Date/Time Date/Time Type Type Clinicians Facility Department ID 2022-10-15 [facility] [id number] [facility] 06:23:29 [id number] [place] 2020-05-30 [id number] 11:[facility]06 [facility] 2020-05-14 Outpatient DION SEGURA FB [id number] FB 09:07:04 [facility] 2022-12-17 2022-12-17 Transition ANASTACIO Sarkar [id number] Univers 00:00:00 00:00:00 of Cathie BUCKNER [id number] [place]ariq [id number] [place] [id number] [address] 2022-12-14 2022-12-16 Inpatient Waqas BELLO [facility] [id number] Univers 10:18:00 17:28:00 RUBEN miller [facility] 2022-12-142022-12-16 [facility] Shawn Bob [facility] [id number] Univers 10:18:00 17:28:00 Encounter Ruben Bello [id number] ity [facility] [id number] [facility] [id number] [place] [id number] Branch 2022-12-10 2022-12-10 Outpatient MARCONI_MAR [facility] [id number] [place] 00:00:00 00:00:00 K 39857 [facility] 2022-12-10 2022-12-10 Outpatient MARCONI[facility]MAR [facility] 122 [id number] [place] 00:00:00 00:00:00 K 26554 [facility] 2022-12-08 2022-12-08 Outpatient MARCONI[facility]MAR [facility] 122 [id number] [place] 00:00:00 00:00:00 K 64368 [facility] 2022-11-30 2022-11-30 Emergency X [facility] [id number] Univers 10:14:00 14:51:00 VINOD paul [facility] 2022-11-30 2022-11-30 Emergency [facility] [id number] Univers 10:14:00 14:51:00 Vinod CRONIN [id number] ity of [facility] [id number] [facility] [id number] [address] 2022-11-30 2022-11-30 Outpatient Yahir CRUZ [facility] [id number] Univers 09:00:00 09:36:22 FELISA itpelon [facility] 2022-11-30 2022-11-30 Urgent Felisa Cruz [facility] 1.2.840.114 [id number] Univers 09:00:00 09:36:22 Care Unknown, Attending HEALTH [id number] ity joaquin CRONIN [id number] Kalyan as MONICA?BLEA [id number] [address] MEDICAL OFFICE BUILDING 2022-11-30 2022-11-30 Orders Doctor PAUL [id number] Univers 00:00:00 00:00:00 Only Unassigned, ERICK [id number] ity of [place] [facility] [id number] Kalyan as [id number] [facility] 009 Branch 2022-11-23 2022-11-23 Transition ANASTACIO Ho 1.2.840.114 [id number] Univers 00:00:00 00:00:00 of Care Seda BUCKNER [id number] ity of [id number] [id number] [facility] 403 Branch 2022-11-20 2022-11-22 Inpatient X ACE [facility] NEELIMA [id number] Univers 12:36:00 17:00:00 RUBEN itpelon of [facility] 2022-11-20 2022-11-22 [facility] WeaverKendall [facility] 1.2.840.1 [id number] Univers 12:36:00 17:00:00 Encounter Ruben Bello [id number] ity of [facility] [id number] [facility] [id number] [facility] 081 Branch 2022-11-11 2022-11-11 Outpatient LORETTA_MARCOS JERNIGAN 122 [id number] [place] 00:00:00 00:00:00 K 36368 da [facility]ly [facility] 2022-11-03 2022-11-03 Outpatient SANDRA [facility] 590 [id number] [place] 00:00:00 00:00:00 _GARRET [id number] Medic al Group 2022-11-03 2022-11-03 Garret [facility] [place] [facility] [id number] [place] 00:00:00 00:00:00 Marcin Martinez MD: SLIM/CARLOS/JOSE J Holcomb up [address] [facility]_Orthop [place], [address], [place] [address] , Ph. 2022-10-20 2022-10-21 Emergency Stefanie Lo [facility] [id number] 11:24:[facility] 22:05:[address] [facility] 2022-10-20 2022-10-21 Outpatient ER TRESSA LEMUS [facility] Emergency 2 [id number] [facility] 11:24:00 22:05:00 2022-10-20 2022-10-20 Travel [facility] [id number] [facility] 00[facility]00 [facility] 2022-09-10 2022-09-11 [facility] [id number] [place] 22:44:00 01:24:00 BILAL [facility] [place] 2022-08-30 2022-09-07 [facility] [id number] [place] 22:58:00 17:37:00 JERILYN [facility]ica [facility] [place] 2022-09-02 2022-09-02 Outpatient GARCIA_PENA [facility] [id number] Dave 00:00:00 00:00:00 _ENRIQUE 28086 Medic al Group 2022-04-16 2022-04-16 Outpatient Elective Ruby, [facility] [id number] [facility] 07:43:00 07:44:00 Morgan 65 2022-04-16 2022-04-16 Outpatient [facility] [id number] [facility] 07:43:00 07:43:00 65 2022-03-23 2022-03-23 Outpatient IHDE_G MMG MMG [id number] [place] 03:29:00 03:29:00 0607 da Medical Group 2021-07-29 2021-07-29 Out[facility] [id number] [place] 08:35:00 10:59:00 WASIM [facility] [place] 2021-03-04 2021-03-05 Outpatient X ANNIE INTOMASA NEELIMA [id number] Univers 08:53:00 11:57:00 GLORIA miller [facility] 2021-03-04 2021-03-05 Emergency Gus Weaverip [facility] 1.2.840. [id number] Univers 08:53:00 11:57:00 Gloria Corona [place] [id number] [facility] [id number] [facility] [id number] [facility] 081 Branch 2020-11-18 2020-11-18 Outpatient E FAUSTINO PROCTOR [facility] ECC [id number] [place] 21:44:00 23:00:00 Medica l Center 2020-11-10 2020-11-10 Outpatient E MARCIO, [facility] [id number] [place] 10:40:00 13:15:00 JELANI Medic al Center 2020-10-30 2020-10-31 Outpatient E CHANO [facility] WHCECC [id number] [place] 16:50:00 19:54:00 AMADOU [facility] [place] 2020-09-10 2020-09-10 Outpatient E FAUSTINO PROCTOR [facility] ECC [id number] [place] 14:11:00 16:50:00 Medica l [place] 2020-07-31 2020-07-31 Ambulatory nullFlavo [facility] [id number] Memoria 15:00:00 15:00:00 Pre-Reg r Gastroenter 07 l ology [facility] 2020-07-31 2020-07-31 Ambulatory nullFlavo [facility] [id number] Memoria 15:00:00 15:00:00 Pre-Reg r Gastroenter 07 l ology [facility] 2020-07-31 2020-07-31 Outpatient MHIE [facility] [id number] [place] 10:00:00 10:00:00 07 l Dwight 2020-07-31 2020-07-31 Outpatient Imelda, [facility] [id number] 10:00:00 10:00:00 Nadim Christopher 07 2020-07-09 2020-07-09 Bedded nullFlavo [facility] [id number] [place] 14:30:00 18:25:00 Outpatient r Dwight 15 l [place] 2020-07-09 2020-07-09 Bedded [facility]Flavo [facility] [id number] [place]oria 14:30:00 18:25:00 Outpatient r Dwight 15 l [place] 2020-07-09 2020-07-09 Outpatient MHSL [facility] [id number] 09:30:00 13:25:00 2020-07-09 2020-07-09 Outpatient MHSL [facility] [id number] 09:30:00 13:25:00 15 2020-07-09 2020-07-09 Outpatient IMELDA, MHFB FB [id number] MHFB 09:30:00 13:25:00 NAD 2020-07-01 2020-07-01 Ambulatory nullFlavo [facility] [id number] Memoria 15:15:00 15:15:00 Pre-Reg r Urology 05 l [place] [facility] 2020-07-01 2020-07-01 Ambulatory nullFlavo [facility] [id number] Memoria 15:15:00 15:15:00 Pre-Reg r Urology 05 l [place] [facility] 2020-07-01 2020-07-01 [facility] [id number] Memoria 10:15:00 10:15:00 05 l Dwight 2020-07-01 2020-07-01 Outpatient Mino, [facility] [id number] 10:15:00 10:15:00 Brown 05 Vinod 2020-06-02 2020-06-04 Phone nullFlavo [facility] [id number] Memoria 14:59:09 04:59:59 Message r Gastroenter 03 l ology [facility] 2020-06-02 2020-06-04 Phone nullFlavo [facility] [id number] Memoria 14:59:09 04:59:59 Message r Gastroenter 03 l ology [facility] 2020-06-02 2020-06-03 Outpatient [facility] [id number] 09:59:09 23:59:59 03 2020-06-03 2020-06-03 PreReg nullFlavo [facility] [id number] Memoria 17:00:00 17:00:00 r Dwight 14 l [place] 2020-06-03 2020-06-03 PreReg nullFlavo [facility] [id number] Memoria 17:00:00 17:00:00 r Dwight 14 l [place] 2020-06-03 2020-06-03 Outpatient MHSL MHSL [id number] 12:00:00 12:00:00 14 2020-06-03 2020-06-03 Outpatient MHSL MHSL [id number] 12:00:00 12:00:00 14 2020-05-27 2020-05-29 Phone nullFlavo [facility] [id number] Memoria 13:58:32 04:59:59 Message r Gastroenter 02 l ology [facility] 2020-05-27 2020-05-29 Phone nullFlavo [facility] [id number] Memoria 13:58:32 04:59:59 Message r Gastroenter 02 l ology [facility] 2020-05-27 2020-05-28 Outpatient [facility] [id number] 08:58:32 23:59:59 02 2020-05-15 2020-05-15 Outpatient IE IE [id number] Memoria 13:00:00 13:00:00 06 l Dwight 2020-05-15 2020-05-15 Outpatient MHIE IE [id number] Memoria 13:00:00 13:00:00 06 l Nayan 2020-05-13 2020-05-13 Outpatient IE IE [id number] Memoria 09:00:00 09:00:00 04 l Nayan 2020-05-13 2020-05-13 Outpatient IE IE [id number] Memoria 09:00:00 09:00:00 04 l Dwight 2020-05-06 2020-05-08 Phone nullFlavo [facility] [id number] Memoria 20:38:41 04:59:59 Message r Gastroenter 00 l ology [facility] 2020-05-06 2020-05-08 Phone nullFlavo [facility] [id number] Memoria 20:38:41 04:59:59 Message r Gastroenter 00 l ology [facility] 2020-05-06 2020-05-07 Outpatient [facility] [id number] 15:38:41 23:59:59 2020-04-28 2020-04-29 Outpatient nullFlavo [facility] [id number] Memoria 19:00:00 04:59:59 r Gastroenter 03 l ology [facility] 2020-04-28 2020-04-29 Outpatient nullFlavo [facility] [id number] Memoria 19:00:00 04:59:59 r Gastroenter 03 l ology [facility] 2020-04-28 2020-04-28 Outpatient Imelda [facility] [id number] 14:00:00 23:59:59 Nadim Christopher 03 2020-04-28 2020-04-28 Ambulatory nullFlavo [facility] [id number] Memoria 18:00:00 18:00:00 Pre-Reg r Gastroenter 02 l ology [place] [facility] 2020-04-28 2020-04-28 Ambulatory nullFlavo [facility] [id number] Memoria 18:00:00 18:00:00 Pre-Reg r Gastroenter 02 l ology [facility] 2020-04-28 2020-04-28 Outpatient IE [facility] [id number] Memoria 14:00:00 14:00:00 03 l Nayan 2020-04-28 2020-04-28 Outpatient MHIE IE [id number] Memoria 13:00:00 13:00:00 02 l Nayan 2020-04-28 2020-04-28 Outpatient Imelda, [facility] [id number] 13:00:00 13:00:00 Nadim Christopher 02 2020-04-10 2020-04-10 Emergency nullFlavo [facility] [id number] Memoria 15:14:34 20:00:00 r Dwight 12 l [place] 2020-04-10 2020-04-10 [facility] [id number] Mem[facility] 15:14:34 20:00:00 r Nayan 12 l [place] 2020-04-10 2020-04-10 Outpatient [facility] [place] S [id number] 10:14:34 15:00:00 Antonio 12 Kory 2020-04-10 2020-04-10 Emergency E [facility], FB FB [id number] FB 10:14:00 15:00:00 ANTONIO 2020-04-07 2020-04-07 Bedded null[facility]avo [facility] [id number] [facility] 12:50:00 17:53:00 Outpatient r Nayan 11 l [place] 2020-04-07 2020-04-07 Bedded [facility]Flavo [facility] [id number] [facility] 12:50:00 17:53:00 Outpatient r Dwight 11 l [place] 2020-04-07 2020-04-07 Outpatient SL [facility] [id number] 07:50:00 12:53:00 11 2020-04-07 2020-04-07 Outpatient MHSL MHSL [id number] 07:50:00 12:53:00 11 2020-04-07 2020-04-07 Outpatient IMELDA, MHFB MHFB [id number] MHFB 07:50:00 12:53:00 NADIM 2020-04-07 2020-04-07 Outpatient MHSL MHSL [id number] 07:50:00 07:50:00 11 2020-04-03 2020-04-04 [place] [id number] Mem[facility] 16:00:00 04:59:59 r Gastroenter 01 l ology [facility] 2020-04-03 2020-04-04 Outpatient nullFlavo MHMG [id number] Memoria 16:00:00 04:59:59 r Gastroenter 01 l ology [facility] 2020-04-03 2020-04-03 Outpatient Imelda, MHMG MG [id number] 11:00:00 23:59:59 Nadim Christopher 01 2020-04-03 2020-04-03 Outpatient MHIE MHIE [id number] Memoria 11:00:00 11:00:00 01 l Nayan 2020-03-14 2020-03-14 Outpatient E RADHA JOYNER [facility] [id number] [facility] 20:54:00 22:10:00 [facility] [place] 2019-12-18 2019-12-18 Outpatient E YOUSIF, [facility] [id number] [facility] 20:20:00 22:00:00 RIGOBERTO [facility] [place] 2019-10-07 2019-10-07 Outpatient E CARREROJOSEPHINE Alarcon [facility] [id number] [facility] 21:04:00 21:50:00 [facility] [place] 2019-10-06 2019-10-07 Outpatient E CAPOCYAN, [facility] TELE [id number] [facility] 15:54:00 13:13:00 DEION [facility] [place] 2019-06-26 2019-06-28 Inpatient nullFlavo [facility] [id number] Mem[facility] 16:23:17 18:35:00 yahir pantoja [facility] 2019-06-26 2019-06-28 Inpatient nullFlavo [facility] [id number] [facility] 16:23:17 18:35:00 r Nayan 10 [facility] 2019-06-26 2019-06-28 Outpatient Nwoha, MHSE MHSE [id number] 11:23:17 13:35:00 Katherin 10 [place] 2019-06-26 2019-06-26 Inpatient E MHSE MED [id number] 13:42:00 11:23:00 [facility] 2019-02-13 2019-02-13 Ambulatory nullFlavo MHMG [id number] Memoria 20:00:00 20:00:00 Pre-Reg r Primary 00 l [facility] 2019-02-13 2019-02-13 Ambulatory nullFlavo MHMG [id number] [facility] 20:00:00 20:00:00 Pre-Reg r Primary 00 l [facility] 2019-02-13 2019-02-13 Outpatient MHIE MHIE [id number] [facility] 15:00:00 15:00:00 00 [facility] 2019-02-13 2019-02-13 Outpatient Reich, MHMG MG [id number] 15:00:00 15:00:00 Stephanie Asha 00 [facility] 2019-01-26 2019-01-29 Inpatient nullFlavo [facility] [id number] [facility] 05:02:00 22:38:00 r Nayan 09 [facility] 2019-01-26 2019-01-29 Inpatient nullFlavo [facility] [id number] [facility] 05:02:00 22:38:00 r Nayan 09 [facility] 2019-01-26 2019-01-29 Outpatient Nwoha, MHSE SE [id number] 00:02:00 17:38:00 Katherin Joao Tran 2019-01-26 2019-01-26 Inpatient E MHSE MED [id number] 04:35:00 04:35:[address] [facility] [address] [facility] 2017-08-28 2017-08-29 Emergency nullFlavo [facility] [id number] [facility] 21:00:00 03:45:00 r Nayan [address] [place] [address] 2017-08-28 2017-08-29 Emergency [facility]Flavo [facility] [id number] [facility] 21:00:00 03:45:00 r Dwight [address] [place] [address] 2017-08-28 2017-08-28 Outpatient Chukwuma, MHSE MHSE [id number] 15:00:00 21:45:00 Ha Mendez 08 2016-12-27 2016-12-27 Emergency [facility]Flavo [facility] [id number] Mem[facility] 05:45:00 11:10:00 r Nayan 07 [facility] 2016-12-27 2016-12-27 Emergency nullFlavo [facility] [id number] Mem[facility] 05:45:00 11:10:00 r Nayan 07 [facility] 2016-12-27 2016-12-27 Outpatient Bartsoff, SE MHSE [id number] 00:45:00 06:10:00 Agustin Ling 2016-12-26 2016-12-26 Emergency [facility]Flavo [facility] [id number] [facility] 22:48:00 23:33:00 r Nayan 06 [facility] 2016-12-26 2016-12-26 Emergency nullFlavo [facility] [id number] Memoria 22:48:00 23:33:00 r Nayan 06 [facility] 2016-12-26 2016-12-26 Outpatient Varghesesofrancisco, SE MHSE [id number] 17:48:00 18:33:00 Agustin Ling 2016-11-22 2016-11-22 Emergency [facility]Flavo [facility] [id number] Memoria 01:58:00 05:52:00 r Nayan 05 [facility] 2016-11-22 2016-11-22 Emergency nullFlavo [facility] [id number] Mem[facility] 01:58:00 05:52:00 r Nayan 05 [facility] 2016-11-21 2016-11-21 Outpatient Keene, MHSE MHSE [id number] 19:58:00 23:52:00 Tra Conway John 2016-11-13 2016-11-13 Emergency [facility]Flavo [facility] [id number] Mem[facility] 05:35:00 10:50:00 r Nayan 04 [facility] 2016-11-13 2016-11-13 Emergency nullFlavo [facility] [id number] Mem[facility] 05:35:00 10:50:00 r Nayan 04 [facility] 2016-11-12 2016-11-13 Outpatient Bartsoff, SE MHSE [id number] 23:35:00 04:50:00 Agustin Ling 04 2016-11-03 2016-11-03 Emergency nullFlavo [facility] [id number] Memoria 15:36:00 21:04:00 r Dwight 03 [facility] 2016-11-03 2016-11-03 Emergency nullFlavo [facility] [id number] Memoria 15:36:00 21:04:00 r Nayan 03 l [facility] 2016-11-03 2016-11-03 Outpatient LUIS Victoria [facility] [id number] 09:36:00 15:04:00 Derick Saundra Duggan 2016-08-13 2016-08-14 Observatio nullFlavo [facility] [id number] Memoria 17:44:00 22:13:00 n r Nayan 02 [facility] 2016-08-13 2016-08-14 Observatio nullFlavo [facility] [id number] Memoria 17:44:00 22:13:00 n r Nayan 02 [facility] 2016-08-13 2016-08-14 Outpatient Gaudencio [facility] [id number] 12:44:00 17:13:00 Berna Soria 2016-01-27 2016-01-28 EC nullFlavo [facility] [id number] Memoria 22:41:00 03:42:00 Emergency r Nayan 01 l [facility] 2016-01-27 2016-01-28 EC nullFlavo [facility] [id number] Memoria 22:41:00 03:42:00 Emergency r Dwight 01 l [facility] 2016-01-27 2016-01-27 Outpatient Marcin [facility] [id number] 17:41:00 22:42:00 Habacuc 01 Marley Results Test Description Test Time Test Comments Results Result Comments Source POCT GLUCOSE (AUTOMATED) 2022-12-16 23:14:42 Test Item Value Reference Range Interpretation Comme nts POCT GLU (test code = 9459636233) 367 mg/dL 70-110 H Lab Interpretation (test code = 40620-5) [facility]normal [facility] GLUCOSE (AUTOMATED)2022-12-16 18:33:39 Test Item Value Reference Range Interpretation Comments POCT GLU (test code = 7777544317) 233 mg/dL 70-110 H Lab Interpretation (test code = Abnormal 43298-4) [facility] 18:24:57 Test Item Value Reference Range Interpretation Comments POCT GLU (test code = 7428525637) 239 mg/dL 70-110 H Lab Interpretation (test code = Abnormal 00165-6) [facility] [id number] 14:43:29 Test Item Value Reference Range Interpretation Comments NT-proBNP (test code = 363 pg/mL <=125 H 9590777714) ANTONIO (test code = ANTONIO) Biotin has been reported to cause a negative bias, interpret results relative to patient's use of biotin. Lab Interpretation (test Abnormal code = 62475-9) [facility] (NA, K, CL, CO2, GLUCOSE, BUN, CREATININE, CA)2022-12-16 14:34:29 Test Item Value Reference Range Interpretation Comments NA (test code = 131 mmol/L 135-145 L 0845560077) K (test code = 4.0 mmol/L 3.5-5.0 1154324154) CL (test code = 94 mmol/L 98-108 L 6944300256) CO2 TOTAL (test code = 27 mmol/L 23-31 7823314073) AGAP (test code = 10 2-16 6590980109) BUN (test code = 27 mg/dL 7-23 H 8295939942) GLUCOSE (test code = 214 mg/dL 70-110 H 0724332019) CREATININE (test code = 0.67 mg/dL 0.60-1.25 3123020909) CALCIUM (test code = 9.4 mg/dL 8.6-10.6 5313121964) eGFR (test code = 122.7 mL/min/1.73m2 8902220626) ANTONIO (test code = ANTONIO) Association of Glomerular Filtration Rate (GFR) and Staging of Kidney Disease* + --+ --+ ------+| GFR (mL/min/1.73 m2) ?| With Kidney Damage ?| ?Without Kidney Damage+ --------+ --------+ +| ?>90 ?| ?Stage one ?| ? Normal ?+ ---+ ---+ -------+| ?60-89 ?| ?Stage two ?| ? Decreased GFR ? + --+ --+ ------+| ?30-59 ?| ?Stage three ?| ? Stage three ? + --+ --+ ------+| ?15-29 ?| ?Stage four ? | ? Stage four ?+ ---+ ---+ -------+| ?<15 (or dialysis) ? ?| ?Stage five ? | ? Stage five ?+ ---+ ---+ -------+ *Each stage assumes the associated GFR level has been in effect for at least three months. ?Stages 1 to 5, with or without kidney disease, indicate chronic kidney disease. Notes: Determination of stages one and two (with eGFR >59mL/min/1.73 m2) requires estimation of kidney damage for at least three months as defined by structural or functional abnormalities of the kidney, manifested by either:Pathological abnormalities or Markers of kidney damage (including abnormalities in the composition of the blood or urine or abnormalities in imaging tests). Lab Interpretation Abnormal (test code = 72498-0) [facility] (Total Cholesterol, Triglycerides, HDL) - [id number] 12:46:12 Test Item Value Reference Range Interpretation Comments CHOL (test code = 9918126305) 178 mg/dL 120-200 HDL (test code = 9723147229) 42 mg/dL >=40 HDLC RATIO (test code = 5193776328) 4.2 <=5.0 TRIG (test code = 3696995690) 134 mg/dL 30-170 LDL CHOL (test code = 35751-1) 109 mg/dL <=160 VLDL (test code = 9217796783) 27 mg/dL 5-60 Lab Interpretation (test code = Normal 79546-5) [facility] GLUCOSE (AUTOMATED)2022-12-16 09:50:32 Test Item Value Reference Range Interpretation Comments POCT GLU (test code = 3886257985) 186 mg/dL 70-110 H Lab Interpretation (test code = Abnormal 09722-7) [facility] GLUCOSE (AUTOMATED)2022-12-16 02:16:09 Test Item Value Reference Range Interpretation Comments POCT GLU (test code = 8452841288) 348 mg/dL 70-110 H Lab Interpretation (test code = Abnormal 99452-8) [facility] GLUCOSE (AUTOMATED)2022-12-15 22:53:42 Test Item Value Reference Range Interpretation Comments POCT GLU (test code = 8579281812) 318 mg/dL 70-110 H Lab Interpretation (test code = Abnormal 40039-7) [facility] [id number] 19:51:41 Test Item Value Reference Range Interpretation Comments CK (test code = 4112221542) 67 U/L 33-194 Lab Interpretation (test code = Normal 57681-6) [facility] Center[facility] (56129)(TOTAL CHOLESTEROL, TRIGLYCERIDES, HDL)2022-12-15 19:40:39 Test Item Value Reference Range Interpretation Comments CHOL (test code = 7066262644) 209 mg/dL 120-200 H HDL (test code = 1608875683) 39 mg/dL >=40 L HDLC RATIO (test code = 8490774906) 5.4 <=5.0 H TRIG (test code = 4865429760) 295 mg/dL 30-170 H LDL CHOL (test code = 37041-6) 111 mg/dL <=160 VLDL (test code = 1950142861) 59 mg/dL 5-60 Lab Interpretation (test code = Abnormal 52774-9) [facility] CenterPROCALCITONIN2023-03-01 18:19:32 Test Item Value Reference Range Interpretation Comments Procalcitonin (test 0.03 ng/mL <=0.07 code = 9759342600) ANTONIO (test code = ANTONIO) INTERPRETATION OF PROCALCITONIN RESULTS IN ADULTS >= 18 YEARS OF AGE Initiation and discontinuation of antibiotics on patients with suspected or confirmed Lower Respiratory Tract Infection in Adults >= 18 years of age. + +-------- --------+ + -----+|Procalcitonin |Interpretation ?|Antibiotic ? ? |Considerations ? |ng/mL ? | ?|recommendation | ? + +-------- --------+ + -----+| <0.1 ? | Bacterial ? ? ?| Strongly ? ? ?| ? | ?| infection very | discouraged ? | Overruling: ? | ?| unlikely ? ? ? | ? | ? Clinically unstable ? ? ? + +-------- --------+ + ? High risk for adverse ? ? | <0.25 ?| Bacterial ? ? ?| Discouraged ? | ? outcome ? | ?| infection ? ? ?| ? | ? SEE IMPORTANT NOTE ?| ?| unlikely ? ? ? | ? | ? + +-------- --------+ + -----+| >=0.25 ? ? ? | Bacterial ? ? ?| Encouraged ? ?| ? | ?| infection ? ? ?| ? | ? | ?| likely ? | ? | Consider treatment failure ?+ +------- ---------+ -+ if levels does not decrease | >0.5 ? | Bacterial ? ? ?| Strongly ? ? ?| appropriately ? | ?| infection very | encouraged ? ?| ? | ?| likely ? | ? | ? + +-------- --------+ + -----+ Discontinuation of antibiotics in high-acuity patients with suspected or confirmed sepsis in Adults >= 18 years of age. + +-------- --------+ + -----+|Procalcitonin |Interpretation ?|Antibiotic ? ? |Considerations ? |ng/mL ? | ?|recommendation | ? + +-------- --------+ + -----+| <0.25 ?| Bacterial ? ? ?| Strongly ? ? ?| ? | ?| infection very | discouraged ? | Overruling: ? | ?| unlikely ? ? ? | ? | ? Clinically unstable ? ? ? + +-------- --------+ + ? High risk for adverse ? ? | <0.5 or drop | Bacterial ? ? ?| Discouraged ? | ? outcome ? | >80% from ? ?| infection ? ? ?| ? | ? SEE IMPORTANT NOTE ?| highest PCT ?| unlikely ? ? ? | ? | ? | level ?| ?| ? | ? + +-------- --------+ + -----+| >=0.5 ?| Bacterial ? ? ?| Encouraged ? ?| ? | ?| infection ? ? ?| ? | ? | ?| likely ? | ? | Consider treatment failure ?+ +------- ---------+ -+ if levels does not decrease | >1.0 ? | Bacterial ? ? ?| Strongly ? ? ?| appropriately ? | ?| infection very | encouraged ? ?| ? | ?| likely ? | ? | ? + +-------- --------+ + -----+ Percentage of drop of Procalcitonin calculation for Discontinuation of antibiotics in high-acuity patients with suspected or confirmed sepsis in Adults >= 18 years of age. ? Procalcitonin highest{}-Procalcitonin current{}Delta Procalcitonin = x100% ? Procalcitonin current {} IMPORTANT NOTE: Procalcitonin may be elevated without bacterial infection by physiologic stress related to trauma, chavarria, chronic dialysis, metastatic cancer, surgery in the past seven days, malaria, some fungal infections, and some forms of vasculitis. The interpretation algorithm may not apply to patients with immunosuppression (equivalent of >10 mg of prednisone daily), HIV with CD4 cell count < 350 cells/mm3, active malignancy on systemic chemotherapy, solid organ transplant or hematopoietic stem cell transplantation, or hospital acquired pneumonia. Additionally, some clinical trials of procalcitonin have excluded patients with shock requiring vasopressor use, acute respiratory failure requiring mechanical ventilation, or those with known lung abscess/empyema. For further information please refer to:[email or web address] Lab Interpretation Normal (test code = 44666-0) [facility]2022-12-15 17:33:35 Test Item Value Reference Range Interpretation Comments POCT GLU (test code = 3573458320) 284 mg/dL 70-110 H Lab Interpretation (test code = Abnormal 95417-3) [facility] CenterSEDIMENTATION [id number] 15:18:55 Test Item Value Reference Range Interpretation Comments ESR (test code = 62 See_Comment H [Automated message] 46768-7) The system Revegy generated this result transmitted ref erence range: 0 - 10 m m/HR. The reference r david was not used to interpret this result as normal/abnor mal. Lab Interpretation (test Abnormal code = 93999-8) [facility] CenterTROPONIN [id number] 14:09:28 Test Item Value Reference Range Interpretation Comments TROPONIN I (test code = 0.005 ng/mL <=0.034 0621459651) ANTONIO (test code = ANTONIO) Reference (Normal) Range (defined by the 99th percentile reference limit): <= 0.034 ng/mL Note: Cardiac troponin begins to rise 3-4 hours after the onset of ischemia. Repeat in 4-6 hours if the sample was drawn within 3-4 hours of the onset of the symptom and found normal. Diagnosis of myocardial injury is made with acute changes in cTn concentrations with at least one serial sample above the 99th percentile upper reference limit (URL), taken together with the patient's clinical presentation. Biotin has been reported to cause a negative bias, interpret results relative to patient's use of biotin. Lab Interpretation Normal (test code = 10263-8) [facility] CenterN-[facility]AL [id number] 14:06:11 Test Item Value Reference Range Interpretation Comments NT-proBNP (test code = 224 pg/mL <=125 H 2572214418) ANTONIO (test code = ANTONIO) Biotin has been reported to cause a negative bias, interpret results relative to patient's use of biotin. Lab Interpretation (test Abnormal code = 76140-5) [facility]2022-12-15 14:04:20 Test Item Value Reference Range Interpretation Comments POCT GLU (test code = 5044159049) 372 mg/dL 70-110 H Lab Interpretation (test code = Abnormal 44390-4) [facility] CenterCOMP. METABOLIC PANEL (28316)2022-12-15 14:00:26 Test Item Value Reference Range Interpretation Comments NA (test code = 132 mmol/L 135-145 L 6795753352) K (test code = 3.7 mmol/L 3.5-5.0 1027813535) CL (test code = 93 mmol/L 98-108 L 9566768548) CO2 TOTAL (test code = 29 mmol/L 23-31 0273790685) AGAP (test code = 10 2-16 7804264344) BUN (test code = 28 mg/dL 7-23 H 2938950024) GLUCOSE (test code = 328 mg/dL 70-110 H 9951255428) CREATININE (test code = 0.82 mg/dL 0.60-1.25 8511515651) TOTAL BILI (test code = 0.6 mg/dL 0.1-1.3 4023842806) CALCIUM (test code = 8.7 mg/dL 8.6-10.6 9114650676) T PROTEIN (test code = 6.9 g/dL 6.3-8.2 8725445805) ALBUMIN (test code = 3.9 g/dL 3.5-5.0 0187298974) ALK PHOS (test code = 137 U/L 34-122 H 0401408889) ALTv (test code = 18 U/L 5-50 1742-6) AST(SGOT) (test code = 21 U/L 13-40 5317108756) eGFR (test code = 97.2 mL/min/1.73m2 2785126627) ANTONIO (test code = ANTONIO) Association of Glomerular Filtration Rate (GFR) and Staging of Kidney Disease* + --+ --+ ------+| GFR (mL/min/1.73 m2) ?| With Kidney Damage ?| ?Without Kidney Damage+ --------+ --------+ +| ?>90 ?| ?Stage one ?| ? Normal ?+ ---+ ---+ -------+| ?60-89 ?| ?Stage two ?| ? Decreased GFR ? + --+ --+ ------+| ?30-59 ?| ?Stage three ?| ? Stage three ? + --+ --+ ------+| ?15-29 ?| ?Stage four ? | ? Stage four ?+ ---+ ---+ -------+| ?<15 (or dialysis) ? ?| ?Stage five ? | ? Stage five ?+ ---+ ---+ -------+ *Each stage assumes the associated GFR level has been in effect for at least three months. ?Stages 1 to 5, with or without kidney disease, indicate chronic kidney disease. Notes: Determination of stages one and two (with eGFR >59mL/min/1.73 m2) requires estimation of kidney damage for at least three months as defined by structural or functional abnormalities of the kidney, manifested by either:Pathological abnormalities or Markers of kidney damage (including abnormalities in the composition of the blood or urine or abnormalities in imaging tests). Lab Interpretation Abnormal (test code = 91037-4) [facility]2023-[facility]-01 14:00:26 Test Item Value Reference Range Interpretation Comments MAGNESIUM (test code = 5713322264) 1.7 mg/dL 1.7-2.4 Lab Interpretation (test code = Normal 41843-4) [facility] CenterURIC [id number] 14:00:11 Test Item Value Reference Range Interpretation Comments URIC ACID (test code = 8996015474) 8.6 mg/dL 3.6-8.0 H Lab Interpretation (test code = Abnormal 15296-1) [facility] WITH [id number] 13:39:07 Test Item Value Reference Range Interpretation Comments WBC (test code = 5.46 See_Comment [Automated message] 6790-2) The system Revegy generated this result transmitted ref erence range: 4.20 - 1 0.70 10*3/?L. The re ference range was not u sed to interpret this result as normal/abnor mal. RBC (test code = 5.42 See_Comment [Automated message] 709-8) The system Revegy generated this result transmitted ref erence range: 4.26 - 5 .52 10*6/?L. The re ference range was not u sed to interpret this result as normal/abnor mal. HGB (test code = 15.1 g/dL 12.2-16.4 718-7) HCT (test code = 44.7 % 38.4-49.3 4544-3) MCV (test code = 82.5 fL 81.7-95.6 787-2) MCH (test code = 27.9 pg 26.1-32.7 785-6) MCHC (test code = 33.8 g/dL 31.2-35.0 786-4) RDW-SD (test code 39.5 fL 38.5-51.6 = 06678-5) RDW-CV (test code 13.2 % 12.1-15.4 = 788-0) PLT (test code = 217 See_Comment [Automated message] 777-3) The system whic h generated this result transmitted ref erence range: 150 - 32 8 10*3/?L. The re ference range was not u sed to interpret this result as normal/abnor mal. MPV (test code = 10.4 fL 9.8-13.0 09070-8) NRBC/100 WBC (test 0.0 See_Comment [Automat ed message] code = 5917572014) The syste m which generated this result transmitted ref erence range: 0.0 - 10 .0 /100 WBCs. The refer ence range was not u sed to interpret this result as normal/abnor mal. NRBC x10^3 (test See_Comment [Automated message] code = 9742049792) The syste m which generated this result transmitted ref erence range: 10*3/?L. The reference range was not used to interpr et this result as normal/abnormal . GRAN MAT (NEUT) % 40.4 % (test code = 770-8) IMM GRAN % (test 0.40 % code = 5606605265) LYMPH % (test code 38.8 % = 736-9) MONO % (test code 12.3 % = 5905-5) EOS % (test code = 7.0 % 713-8) BASO % (test code 1.1 % = 706-2) GRAN MAT 2.21 10*3/uL 1.99-6.95 x10^3(ANC) (test code = 8778510750) IMM GRAN x10^3 0.00-0.06 (test code = 8797925260) LYMPH x10^3 (test 2.12 10*3/uL 1.09-3.23 code = 731-0) MONO x10^3 (test 0.67 10*3/uL 0.36-1.02 code = 742-7) EOS x10^3 (test 0.38 10*3/uL 0.06-0.53 code = 711-2) BASO x10^3 (test 0.06 10*3/uL 0.01-0.09 code = 704-7) [facility] 11:58:59 Test Item Value Reference Range Interpretation Comments MAGNESIUM (test code = 5491389513) 1.6 mg/dL 1.7-2.4 L Lab Interpretation (test code = Abnormal 33819-6) [facility] CenterPHOSPHORUS2023-03-01 11:58:59 Test Item Value Reference Range Interpretation Comments PHOSPHORUS (test code = 0742012640) 4.9 mg/dL 2.5-5.0 Lab Interpretation (test code = Normal 97610-0) [facility] CenterGLYCOSYLATED HEMOGLOBIN (A1C)2022-12-15 10:54:01 Test Item Value Reference Range Interpretation Comments HGB A1C (test code = 8.7 % 4.0-5.7 H 4548-4) ANTONIO (test code = ANTONIO) Reference RangesNormal: <5.7%Prediabetes: 5.7 - 6.4%Diabetes: > 6.5% Lab Interpretation (test Abnormal code = 61181-6) [facility] CenterTROPONIN [id number] 06:55:05 Test Item Value Reference Range Interpretation Comments TROPONIN I (test code = 0.008 ng/mL <=0.034 7903057354) ANTONIO (test code = ANTONIO) Reference (Normal) Range (defined by the 99th percentile reference limit): <= 0.034 ng/mL Note: Cardiac troponin begins to rise 3-4 hours after the onset of ischemia. Repeat in 4-6 hours if the sample was drawn within 3-4 hours of the onset of the symptom and found normal. Diagnosis of myocardial injury is made with acute changes in cTn concentrations with at least one serial sample above the 99th percentile upper reference limit (URL), taken together with the patient's clinical presentation. Biotin has been reported to cause a negative bias, interpret results relative to patient's use of biotin. Lab Interpretation Normal (test code = 89537-5) [facility] CenterProthrombin Time / [id number] 06:22:21 Test Item Value Reference Range Interpretation Comments PROTIME PATIENT (test 12.1 See_Comment [Auto mated message] code = 5964-2) The system Ajaline generated this result transmitted ref erence range: 12.0 - 1 4.7 Seconds. The re ference range was not u sed to interpret this result as normal/abnor mal. INR (test code = 6301-6) 0.9 Nor mal INR <1.1; Warfarin Therap eutic range 2.0 to 3. 0 or 2.5 to 3.5, dep ending upon the indica tions. Lab Interpretation (test Normal code = 51811-6) [facility] GLUCOSE (AUTOMATED)2022-12-15 05:32:24 Test Item Value Reference Range Interpretation Comments POCT GLU (test code = 9401121624) 350 mg/dL 70-110 H Lab Interpretation (test code = Abnormal 22937-5) [facility] GLUCOSE (AUTOMATED)2022-12-15 04:17:06 Test Item Value Reference Range Interpretation Comments POCT GLU (test code = 9141248645) 354 mg/dL 70-110 H Lab Interpretation (test code = Abnormal 32082-7) [facility] CenterTR[facility] [id number] 17:11:57 Test Item Value Reference Range Interpretation Comments TROPONIN I (test code = 0.006 ng/mL <=0.034 [id number]) ANTONIO (test code = ANTONIO) Reference (Normal) Range (defined by the 99th percentile reference limit): <= 0.034 ng/mL Note: Cardiac troponin begins to rise 3-4 hours after the onset of ischemia. Repeat in 4-6 hours if the sample was drawn within 3-4 hours of the onset of the symptom and found normal. Diagnosis of myocardial injury is made with acute changes in cTn concentrations with at least one serial sample above the 99th percentile upper reference limit (URL), taken together with the patient's clinical presentation. Biotin has been reported to cause a negative bias, interpret results relative to patient's use of biotin. Lab Interpretation Normal (test code = 52506-5) [id number] 17:08:35 Test Item Value Reference Range Interpretation Comments NT-proBNP (test code = 455 pg/mL <=125 H [id number]) ANTONIO (test code = ANTONIO) Biotin has been reported to cause a negative bias, interpret results relative to patient's use of biotin. Lab Interpretation (test Abnormal code = 53937-6) [facility] + [id number] 17:08:14 Test Item Value Reference Range Interpretation Comments CK (test code = 67 U/L 33-194 9638735333) CK-MB (test code = 1.30 ng/mL <=3.50 6028004636) CKMB INDEX (test code = 1.9 % 0.0-2.5 3200417938) ANTONIO (test code = ANTONIO) Biotin has been reported to cause a negative bias, interpret results relative to patient's use of biotin. Lab Interpretation (test Normal code = 81631-4) [facility][id number][facility]14 16:59:56 Test Item Value Reference Range Interpretation Comments NA (test code = 136 mmol/L 135-145 9908050917) K (test code = 4.0 mmol/L 3.5-5.0 1516201311) CL (test code = 98 mmol/L 98-108 0378971108) CO2 TOTAL (test code = 29 mmol/L 23-31 3539731149) AGAP (test code = 9 2-16 6835112404) BUN (test code = 22 mg/dL 7-23 0823325519) GLUCOSE (test code = 204 mg/dL 70-110 H 8964700809) CREATININE (test code = 0.67 mg/dL 0.60-1.25 2408748425) TOTAL BILI (test code = 0.8 mg/dL 0.1-1.6 5253925329) CALCIUM (test code = 8.9 mg/dL 8.6-10.6 8329384843) T PROTEIN (test code = 7.4 g/dL 6.3-8.2 3492386597) ALBUMIN (test code = 4.5 g/dL 3.5-5.0 0340248774) ALK PHOS (test code = 99 U/L 34-122 7637878808) ALTv (test code = 21 U/L 5-50 1742-6) AST(SGOT) (test code = 24 U/L 13-40 2450010432) eGFR (test code = 122.7 mL/min/1.73m2 5554417105) ANTONIO (test code = ANTONIO) Association of Glomerular Filtration Rate (GFR) and Staging of Kidney Disease* + --+ --+ ------+| GFR (mL/min/1.73 m2) ?| With Kidney Damage ?| ?Without Kidney Damage+ --------+ --------+ +| ?>90 ?| ?Stage one ?| ? Normal ?+ ---+ ---+ -------+| ?60-89 ?| ?Stage two ?| ? Decreased GFR ? + --+ --+ ------+| ?30-59 ?| ?Stage three ?| ? Stage three ? + --+ --+ ------+| ?15-29 ?| ?Stage four ? | ? Stage four ?+ ---+ ---+ -------+| ?<15 (or dialysis) ? ?| ?Stage five ? | ? Stage five ?+ ---+ ---+ -------+ *Each stage assumes the associated GFR level has been in effect for at least three months. ?Stages 1 to 5, with or without kidney disease, indicate chronic kidney disease. Notes: Determination of stages one and two (with eGFR >59mL/min/1.73 m2) requires estimation of kidney damage for at least three months as defined by structural or functional abnormalities of the kidney, manifested by either:Pathological abnormalities or Markers of kidney damage (including abnormalities in the composition of the blood or urine or abnormalities in imaging tests). Lab Interpretation Abnormal (test code = 71583-0) [facility] WITH [id number] 16:49:54 Test Item Value Reference Range Interpretation Comments WBC (test code = 7.67 See_Comment [Automated 7377-2) message] The sy stem which generated this result transmitted reference range : 4.20 - 10.70 10*3/?L. The reference range was not used to interpret this result as normal/abnormal . RBC (test code = 5.74 See_Comment H [Automated 692-3) message] The sy stem which generated this result transmitted reference range : 4.26 - 5.52 10*6/?L. The reference range was not used to interpret this result as normal/abnormal . HGB (test code = 15.7 g/dL 12.2-16.4 718-7) HCT (test code = 47.5 % 38.4-49.3 4544-3) MCV (test code = 82.8 fL 81.7-95.6 787-2) MCH (test code = 27.4 pg 26.1-32.7 785-6) MCHC (test code = 33.1 g/dL 31.2-35.0 786-4) RDW-SD (test code = 39.8 fL 38.5-51.6 58465-1) RDW-CV (test code = 13.4 % 12.1-15.4 788-0) PLT (test code = 269 See_Comment [Automated 777-3) message] The sy stem which generated this result transmitted reference range : 150 - 328 10*3/ ?L. The reference r david was not used to interpret this result as normal/abnormal . MPV (test code = 9.8 fL 9.8-13.0 45550-6) NRBC/100 WBC (test 0.0 See_Comment [Automat ed code = 1395868481) message] The system which generated this result transmitted reference range : 0.0 - 10.0 /100 WBCs. The refer ence range was not u sed to interpret th is result as normal/abnormal . NRBC x10^3 (test code See_Comment [Auto mated = 7362854517) message] The s ystem which generated this result transmitted reference range : 10*3/?L. The reference range was not used to interpret this result as normal/abnormal . GRAN MAT (NEUT) % 59.0 % (test code = 770-8) IMM GRAN % (test code 0.40 % = 0695691236) LYMPH % (test code = 26.1 % 736-9) MONO % (test code = 10.2 % 5905-5) EOS % (test code = 3.3 % 713-8) BASO % (test code = 1.0 % 706-2) GRAN MAT x10^3(ANC) 4.53 10*3/uL 1.99-6.95 (test code = 9617038480) IMM GRAN x10^3 (test 0.03 10*3/uL 0.00-0.06 code = 2161297381) LYMPH x10^3 (test code 2.00 10*3/uL 1.09-3.23 = 731-0) MONO x10^3 (test code 0.78 10*3/uL 0.36-1.02 = 742-7) EOS x10^3 (test code = 0.25 10*3/uL 0.06-0.53 711-2) BASO x10^3 (test code 0.08 10*3/uL 0.01-0.09 = 704-7) Lab Interpretation Abnormal (test code = 80338-8) [facility] [id number] 17:34:14 Test Item Value Reference Range Interpretation Comments TROPONIN I (test code = 0.006 ng/mL <=0.034 4365472946) ANTONIO (test code = ANTONIO) Reference (Normal) Range (defined by the 99th percentile reference limit): <= 0.034 ng/mL Note: Cardiac troponin begins to rise 3-4 hours after the onset of ischemia. Repeat in 4-6 hours if the sample was drawn within 3-4 hours of the onset of the symptom and found normal. Diagnosis of myocardial injury is made with acute changes in cTn concentrations with at least one serial sample above the 99th percentile upper reference limit (URL), taken together with the patient's clinical presentation. Biotin has been reported to cause a negative bias, interpret results relative to patient's use of biotin. Lab Interpretation Normal (test code = 93292-8) [facility] [id number] 17:31:14 Test Item Value Reference Range Interpretation Comments NT-proBNP (test code = 2140 pg/mL <=125 H 1243909216) ANTONIO (test code = ANTONIO) Biotin has been reported to cause a negative bias, interpret results relative to patient's use of biotin. Lab Interpretation (test Abnormal code = 61493-2) [facility] ([id number])2022-11-30 17:22:31 Test Item Value Reference Range Interpretation Comments NA (test code = 137 mmol/L 135-145 5628084001) K (test code = 4.4 mmol/L 3.5-5.0 9857763798) CL (test code = 105 mmol/L 98-108 2008900061) CO2 TOTAL (test code 25 mmol/L 23-31 = 7012200390) AGAP (test code = 7 2-16 1449251188) BUN (test code = 19 mg/dL 7-23 0035242518) GLUCOSE (test code = 100 mg/dL 70-110 7475940704) CREATININE (test code 0.61 mg/dL 0.60-1.25 = 6857258716) TOTAL BILI (test code 0.6 mg/dL 0.1-1.1 = 4349435986) CALCIUM (test code = 8.8 mg/dL 8.6-10.6 5331231654) T PROTEIN (test code 6.3 g/dL 6.3-8.2 = 3076663242) ALBUMIN (test code = 3.7 g/dL 3.5-5.0 2314187192) ALK PHOS (test code = 97 U/L 34-122 2787173817) ALTv (test code = 45 U/L 5-50 1742-6) AST(SGOT) (test code 37 U/L 13-40 = 7658530844) eGFR (test code = 137.2 mL/min/1.73m2 3790009041) ANTONIO (test code = ANTONIO) Association of Glomerular Filtration Rate (GFR) and Staging of Kidney Disease* + + +- +| GFR (mL/min/1.73 m2) ?| With Kidney Damage ?| ?Without Kidney Damage+ ------+ ----+ ------+| ?>90 ?| ?Stage one ?| ? Normal ?+ -+ + -+| ?60-89 ?| ?Stage two ?| ? Decreased GFR ? + + +- +| ?30-59 ?| ?Stage three ?| ? Stage three ? + + +- +| ?15-29 ?| ?Stage four ? | ? Stage four ?+ -+ + -+| ?<15 (or dialysis) ? ?| ?Stage five ? | ? Stage five ?+ -+ + -+ *Each stage assumes the associated GFR level has been in effect for at least three months. ?Stages 1 to 5, with or without kidney disease, indicate chronic kidney disease. Notes: Determination of stages one and two (with eGFR >59mL/min/1.73 m2) requires estimation of kidney damage for at least three months as defined by structural or functional abnormalities of the kidney, manifested by either:Pathological abnormalities or Markers of kidney damage (including abnormalities in the composition of the blood or urine or abnormalities in imaging tests). [facility] WITH [id number] 17:09:31 Test Item Value Reference Range Interpretation Comments WBC (test code = 9.79 See_Comment [Automated 7093-2) message] The sy stem which generated this result transmitted reference range : 4.20 - 10.70 10*3/?L. The reference range was not used to interpret this result as normal/abnormal . RBC (test code = 4.91 See_Comment [Automated 911-8) message] The sy stem which generated this result transmitted reference range : 4.26 - 5.52 10*6/?L. The reference range was not used to interpret this result as normal/abnormal . HGB (test code = 13.6 g/dL 12.2-16.4 718-7) HCT (test code = 41.6 % 38.4-49.3 4544-3) MCV (test code = 84.7 fL 81.7-95.6 787-2) MCH (test code = 27.7 pg 26.1-32.7 785-6) MCHC (test code = 32.7 g/dL 31.2-35.0 786-4) RDW-SD (test code = 41.0 fL 38.5-51.6 76356-3) RDW-CV (test code = 13.3 % 12.1-15.4 788-0) PLT (test code = 285 See_Comment [Automated 737-3) message] The sy stem which generated this result transmitted reference range : 150 - 328 10*3/ ?L. The reference r david was not used to interpret this result as normal/abnormal . MPV (test code = 10.1 fL 9.8-13.0 01044-7) NRBC/100 WBC (test 0.0 See_Comment [Automat ed code = 2797593648) message] The system which generated this result transmitted reference range : 0.0 - 10.0 /100 WBCs. The refer ence range was not u sed to interpret th is result as normal/abnormal . NRBC x10^3 (test code See_Comment [Auto mated = 2220734003) message] The s ystem which generated this result transmitted reference range : 10*3/?L. The reference range was not used to interpret this result as normal/abnormal . GRAN MAT (NEUT) % 63.5 % (test code = 770-8) IMM GRAN % (test code 1.70 % = 6417186918) LYMPH % (test code = 24.5 % 736-9) MONO % (test code = 7.8 % 5905-5) EOS % (test code = 1.8 % 713-8) BASO % (test code = 0.7 % 706-2) GRAN MAT x10^3(ANC) 6.21 10*3/uL 1.99-6.95 (test code = 2182644201) IMM GRAN x10^3 (test 0.17 10*3/uL 0.00-0.06 H code = 8699204958) LYMPH x10^3 (test code 2.40 10*3/uL 1.09-3.23 = 731-0) MONO x10^3 (test code 0.76 10*3/uL 0.36-1.02 = 742-7) EOS x10^3 (test code = 0.18 10*3/uL 0.06-0.53 711-2) BASO x10^3 (test code 0.07 10*3/uL 0.01-0.09 = 704-7) Lab Interpretation Abnormal (test code = 29969-4) [facility] GLUCOSE (AUTOMATED)2022-11-22 18:24:17 Test Item Value Reference Range Interpretation Comments POCT GLU (test code = 4975394934) 291 mg/dL 70-110 H Lab Interpretation (test code = Abnormal 23024-1) [facility] GLUCOSE (AUTOMATED)2022-11-22 14:25:51 Test Item Value Reference Range Interpretation Comments POCT GLU (test code = 1493164422) 211 mg/dL 70-110 H Lab Interpretation (test code = Abnormal 50277-9) [facility] GLUCOSE (AUTOMATED)2022-11-22 06:02:31 Test Item Value Reference Range Interpretation Comments POCT GLU (test code = 7811107047) 173 mg/dL 70-110 H Lab Interpretation (test code = Abnormal 84059-7) [facility] GLUCOSE (AUTOMATED)2022-11-22 02:37:37 Test Item Value Reference Range Interpretation Comments POCT GLU (test code = 0116598640) 260 mg/dL 70-110 H Lab Interpretation (test code = Abnormal 63025-5) [facility]22-[facility]-22 00:11:35 Test Item Value Reference Range Interpretation Comments HGB A1C (test code = 8.6 % 4.0-5.7 H 4548-4) ANTONIO (test code = ANTONIO) Reference RangesNormal: <5.7%Prediabetes: 5.7 - 6.4%Diabetes: > 6.5% Lab Interpretation (test Abnormal code = 76619-9) [facility] [id number] 23:45:57 Test Item Value Reference Range Interpretation Comments TROPONIN I (test code = 0.007 ng/mL <=0.034 7969921519) ANTONIO (test code = ANTONIO) Reference (Normal) Range (defined by the 99th percentile reference limit): <= 0.034 ng/mL Note: Cardiac troponin begins to rise 3-4 hours after the onset of ischemia. Repeat in 4-6 hours if the sample was drawn within 3-4 hours of the onset of the symptom and found normal. Diagnosis of myocardial injury is made with acute changes in cTn concentrations with at least one serial sample above the 99th percentile upper reference limit (URL), taken together with the patient's clinical presentation. Biotin has been reported to cause a negative bias, interpret results relative to patient's use of biotin. Lab Interpretation Normal (test code = 41126-8) [facility] [id number] 23:42:36 Test Item Value Reference Range Interpretation Comments NT-proBNP (test code = 1450 pg/mL <=125 H 3246455829) ANTONIO (test code = ANTONIO) Biotin has been reported to cause a negative bias, interpret results relative to patient's use of biotin. Lab Interpretation (test Abnormal code = 25136-7) [facility] GLUCOSE (AUTOMATED)2022-11-21 22:32:47 Test Item Value Reference Range Interpretation Comments POCT GLU (test code = 1022402611) 284 mg/dL 70-110 H Lab Interpretation (test code = Abnormal 61033-9) [facility] GLUCOSE (AUTOMATED)2022-11-21 17:32:41 Test Item Value Reference Range Interpretation Comments POCT GLU (test code = 6882939917) 172 mg/dL 70-110 H Lab Interpretation (test code = Abnormal 69079-6) [facility] GLUCOSE (AUTOMATED)2022-11-21 13:46:56 Test Item Value Reference Range Interpretation Comments POCT GLU (test code = 6008857926) 120 mg/dL 70-110 H Lab Interpretation (test code = Abnormal 11939-8) [facility] GLUCOSE (AUTOMATED)2022-11-21 02:24:58 Test Item Value Reference Range Interpretation Comments POCT GLU (test code = 7866661558) 136 mg/dL 70-110 H Lab Interpretation (test code = Abnormal 73510-4) [facility] GLUCOSE (AUTOMATED)2022-11-20 20:25:52 Test Item Value Reference Range Interpretation Comments POCT GLU (test code = 1991146576) 170 mg/dL 70-110 H Lab Interpretation (test code = Abnormal 94797-7) [facility]-Glucose [id number] 20:20:41 Test Item Value Reference Range Interpretation Comments POC-Glucose Meter (test 219 mg/dL 70-110 H : TE STED AT [facility] code = 1538) [address] [address]: Mentally Retarded Teacher/Techni tessa ID = [id number] for Dannielle Saucedo Lab Interpretation (test Abnormal code = 05280-7) [facility]-GLUCOSE [id number] 20:20:41 Test Item Value Reference Range Interpretation Comments POC-GLUCOSE METER 219 mg/dL 70-110 H : TESTED A T [facility] [address] (BEAKER) (test code [facility] [address], = 1538) [place] [address]: Mentally Retarded Teacher/Techni tessa ID = [id number] for Gina Mathews POCT-GLUCOSE [id number] 17:21:51 Test Item Value Reference Range Interpretation Comments POC-GLUCOSE METER 134 mg/dL 70-110 H : TESTED A T [facility] [address] (BEAKER) (test code [address] [facility], = 1538) [place] [address]: Mentally Retarded Teacher/Techni tessa ID = [id number] for Scarlett Bob POCT-GLUCOSE [id number] 12:12:19 Test Item Value Reference Range Interpretation Comments POC-GLUCOSE METER 136 mg/dL 70-110 H : TESTED A T [facility] [address] (BEAKER) (test code [facility] [address] [facility], = 1538) [place] [address]: Mentally Retarded Teacher/Techni tessa ID = [id number] for Scarlett Bob POCT-GLUCOSE [id number] 08:42:26 Test Item Value Reference Range Interpretation Comments POC-GLUCOSE METER 195 mg/dL 70-110 H : Notified RN/MD: TESTED (BEAKER) [facility] [address] = 1538) [place] [id number]: Mentally Retarded Teacher/Techni tessa ID = [id number] for Scarlett Bob COMPREHENSIVE METABOLIC [id number] 05:30:55 Test Item Value Reference Range Interpretation Comments TOTAL PROTEIN 5.3 gm/dL 6.0-8.5 L (BEAKER) (test code = 770) ALBUMIN (BEAKER) 3.2 g/dL 3.5-5.0 L (test code = 1145) ALKALINE 107 U/L 30-115 PHOSPHATASE (BEAKER) (test code = 346) BILIRUBIN TOTAL 0.3 mg/dL 0.1-1.2 (BEAKER) (test code = 377) SODIUM (BEAKER) 141 meq/L 135-148 (test code = 381) POTASSIUM (BEAKER) 3.3 meq/L 3.6-5.5 L (test code = 379) CHLORIDE (BEAKER) 106 meq/L 98-106 (test code = 382) CO2 (BEAKER) (test 26 meq/L 20-29 code = 355) BLOOD UREA 13 mg/dL 10-26 NITROGEN (BEAKER) (test code = 354) CREATININE 0.82 mg/dL 0.50-1.20 (BEAKER) (test code = 358) GLUCOSE RANDOM 272 mg/dL 70-110 H (BEAKER) (test code = 652) CALCIUM (BEAKER) 7.8 mg/dL 8.5-10.5 L (test code = 697) AST (SGOT) 11 U/L 5-40 (BEAKER) (test code = 353) ALT (SGPT) 17 U/L 5-50 (BEAKER) (test code = 347) EGFR (BEAKER) 104 Interpretatio n of eGFR (test code = 1092) mL/min/1.[address] age Description sq m Result G1 Randa l or high >=90 G2 Mildly decreased 60-89 G3a Mildl y to moderately 45-5 9 G3b Moderately to s everely 30-44 G4 Severl y decreased 15-29 G5 Kidney failure <15Reported eGF R is based on the CKD-EPI 2020 equation that d oes not use a race coefficientEsti mated GFR is not as accur ate as Creatinine Anay te in predicting glom erular filtration rate . Estimated GFR is not appl icable for dialysis patien ts Mentally Retarded Teacher ID - [id number] ID - [id number] ID - [id number] ID - [id number] ID - [id number] ID - [id number] ID - [id number] ID - [id number] ID - [id number] ID - [id number] ID - [id number] ID - [id number] ID - [id number] ID - [id number] ID - [id number] ID - [id number] 05:30:32 Test Item Value Reference Range Interpretation Comments MAGNESIUM (BEAKER) (test code = 1.5 mg/dL 1.5-3.0 627) Mentally Retarded Teacher ID - [id number] ID - [id number] ID - [id number] ID - [id number] W/PLT COUNT & AUTO [id number] 05:04:01 Test Item Value Reference Range Interpretation Comments WHITE BLOOD CELL COUNT (BEAKER) 6.6 K/ L 4.0-10.0 (test code = 775) RED BLOOD CELL COUNT (BEAKER) 3.92 M/ L 4.20-5.80 L (test code = 761) HEMOGLOBIN (BEAKER) (test code = 11.0 GM/DL 13.0-16.8 L 410) HEMATOCRIT (BEAKER) (test code = 34.8 % 36.0-50.0 L 411) MEAN CORPUSCULAR VOLUME (BEAKER) 89 fL 82-99 (test code = 753) MEAN CORPUSCULAR HEMOGLOBIN 28.1 pg 27.0-33.0 (BEAKER) (test code = 751) MEAN CORPUSCULAR HEMOGLOBIN CONC 31.6 GM/DL 32.0-36.0 L (BEAKER) (test code = 752) RED CELL DISTRIBUTION WIDTH 13.8 % 12.0-15.0 (BEAKER) (test code = 412) PLATELET COUNT (BEAKER) (test 216 K/CU MM 150-430 code = 756) MEAN PLATELET VOLUME (BEAKER) 10.4 fL 6.0-11.5 (test code = 754) NUCLEATED RED BLOOD CELLS 0 /100 WBC 0-0 (BEAKER) (test code = 413) NEUTROPHILS RELATIVE PERCENT 50 % (BEAKER) (test code = 429) LYMPHOCYTES RELATIVE PERCENT 34 % (BEAKER) (test code = 430) MONOCYTES RELATIVE PERCENT 9 % (BEAKER) (test code = 431) EOSINOPHILS RELATIVE PERCENT 4 % (BEAKER) (test code = 432) BASOPHILS RELATIVE PERCENT 1 % (BEAKER) (test code = 437) NEUTROPHILS ABSOLUTE COUNT 3.32 K/ L 1.80-8.00 (BEAKER) (test code = 670) LYMPHOCYTES ABSOLUTE COUNT 2.26 K/ L 1.48-4.50 (BEAKER) (test code = 414) MONOCYTES ABSOLUTE COUNT (BEAKER) 0.58 K/ L 0.00-1.30 (test code = 415) EOSINOPHILS ABSOLUTE COUNT 0.29 K/ L 0.00-0.50 (BEAKER) (test code = 416) BASOPHILS ABSOLUTE COUNT (BEAKER) 0.09 K/ L 0.00-0.20 (test code = 417) IMMATURE GRANULOCYTES-RELATIVE 0.80 % 0.00-0.00 H PERCENT (BEAKER) (test code = 2801) POCT-GLUCOSE [id number] 21:06:30 Test Item Value Reference Range Interpretation Comments POC-GLUCOSE METER 228 mg/dL 70-110 H : TESTED A T [facility] [address] (SANDY) (test code [address], = 1538) [facility] [address]: Mentally Retarded Teacher/Techni tessa ID = [id number] for Oyeb patrick, Noelle CT, CTA AAA, W/ REGGIE.EXT.[id number] 19:56:00 [facility] CENTERName: LADARIUS MARTIN : 1965 Sex: MFINAL REPORTPATIENT ID: [id number] EXAM/TECHNIQUE: CT angiography of the abdomen and pelvis with bilateral lower extremity runoff. 3-D reconstructions of the abdominal aorta were performed. Dose modulation, iterative reconstruction, and/or weight based adjustment of the mA/kV was utilized to reduce the radiation dose to as low as reasonably achievable. INDICATION: Embolism. COMPARISON: None. FINDINGS: Lower thorax: Bilateral pleural effusions and basilar septal thickening. Liver: Unremarkable. Biliary: The gallbladder and intrahepatic and extrahepatic biliary systems are unremarkable. Spleen: Unremarkable. Pancreas: Unremarkable. Adrenals: Unremarkable. Kidneys: Symmetric bilateral nephrograms. No hydronephrosis. No focal renal mass. Bowel: Colonic diverticulosis is present without CT findings of diverticulitis. Appendix is normal in appearance. The small bowel and stomach are normal in appearance without findings of obstruction. Lymph nodes: No lymphadenopathy by size criteria. Mesentery: No ascites. No pneumoperitoneum. Pelvis: Prostatomegaly may represent benign prostatic hyperplasia. Seminal vesicles are unremarkable. The bladder is unremarkable in appearance. Osseous: No acute osseous process. No suspicious osseous lesions. Status post left femoral fixation. Circumferential edema of the left lower extremity. Vasculature: ABDOMENAorta - The aorta is normal in caliber. No significant stenosis or dissection.Celiac Trunk - Celiac artery, splenic artery, common hepatic artery, proper hepatic artery, left hepatic arteries, and left gastric artery are patent without significant stenosis, dissection, or aneurysm.Superior Mesenteric Artery - Replaced right hepatic artery, patent, originating from the superior mesenteric artery. The superior mesenteric artery is patent without significant stenosis, dissection, or aneurysm.Renal Arteries -there are two bilateral renal arteries, patent without high-grade stenosis. Inferior Mesenteric Artery - Inferior mesenteric artery is patent without aneurysm, significant stenosis, or dissectionIliac - The bilateral common iliac arteries are patent without significantstenosis, dissection, or aneurysm. The bilateral external iliac arteries are patent without significant stenosis, dissection, or aneurysm. The bilateral internal iliac arteries are patent without significant stenosis, dissection or aneurysm. RIGHT LEGCFA - Patent without significant stenosis, dissection, or aneurysm.SFA - Patent without significant stenosis, dissection, or aneurysm.Deep Femoral Artery - Patent without significant stenosis, dissection, or aneurysm.Popliteal Artery -the popliteal artery is not well visualized distally and the anterior tibial, posterior tibial, and peroneal arteries are not well opacified. LEFT LEGCFA - Patent without significant stenosis, dissection, or aneurysm.SFA- Patent without significant stenosis, dissection, or aneurysm.Deep Femoral Artery - Patent without significant stenosis, dissection, or aneurysm.Popliteal Artery - the popliteal artery is not well visualized distally and the anterior tibial, posterior tibial, and peroneal arteries are not well opacified. Impression: 1.The bilateral lower popliteal arteries and the anterior tibial, posterior tibial, and peroneal arteries bilaterally are not well opacified, likely secondary to technique, resulting inpoor evaluation of these arteries.2.Circumferential left lower extremity subcutaneous edema.3.Bilateral pleural effusions, likely secondary to pulmonary edema. Signed: [address] [place] hospital VerifiedDate/Time: 10/20/2022 19:56:51 SARS-CoV2/RT-PCR (Asymptomatic ONLY) 2022-10-20 12:56:54 Test Item Value Reference Interpretation Comments Range SARS-COV2/RT-PCR Negative Negative The SARS-Co V-2 (test code = target nucleic 13747-5) acids are not detected in thi s specimen. Negat judy results do not preclude SARS-C oV-2 infection and should not be u sed as the sole bas is for patient management decisions. Nega tive results must be combined with clinical observations, patient history , and epidemiolog ical information. A false negative result may occu r if a specimen is improperly collected, transported or handled. This S ARS CoV-2 test is a rapid, real-juju e RT-PCR test intended for e qualitative detection of nucleic acid fr om SARS-CoV-2 in a nasopharyngeal swab specimen collec anjelica from individual s suspected of COVID-19 by the ir healthcare provider. ANTONIO (test code = This test has been ANTONIO) authorized by FDA under an EUA for use by authorized laboratories. This test is only authorized for the duration of the declaration that circumstances exist justifying the authorization of emergency use of in vitro diagnostic tests for detection and/or diagnosis of COVID-19 under Section 564(b)(1) of the Federal Food, Drug and Cosmetic Act, 21 U.S.C. 360bbb-3(b)(1), unless the authorization is terminated or revoked sooner. Fact Sheet for Healthcare Providers: https://www.[employer]/Documents/Xp ert%20Xpress%20SAR S%20CoV-2/Fact%20S heets/302-3802%20S ARS-COV-2%20HEALTH CARE%20PROVIDERS%2 0FACT%20SHEET.pdf Fact Sheet for Healthcare Patients: https://www.[employer]/Documents/Xp ert%20Xpress%20SAR S%20CoV-2/Fact%20S heets/302-3801%20S ARS-COV-2%20PATIEN T%20FACT%20SHEET.p df Lab Interpretation Normal (test code = 71454-7) [facility]2022-10-20 12:56:54 Test Item Value Reference Range Interpretation Comments SARS-COV2/RT-PCR Negative Negative The SARS-Co V-2 target (test code = nucleic acids a re not 0747101) detected in thi s specimen. Negative result s do not preclude SARS-C oV-2 infection and s hould not be used as the earl e basis for patient managem ent decisions. Nega tive results must be combine d with clinical observ ations, patient history , and epidemiological information. A false negativ e result may occur if a spec imen is improperly clara ected, transported or handled. This SARS CoV-2 test is a rapid, real-time RT-PC R test intended for th e qualitative detection of nu cleic acid from SARS-CoV-2 in a nasopharyngeal swab specimen collected from individuals suspected of CO VID-19 by their healthcar e provider. This test has been authorized by FDA under an EUA for use by authorized laboratories. This test is only authorized for the duration of the declaration that circumstances exist justifying the authorization of emergency use of in vitro diagnostic tests for detection and/or diagnosis of COVID-19 under Section 564(b)(1) of the Federal Food, Drug and Cosmetic Act, 21 U.S.C. 360bbb-3(b)(1), unless the authorization is terminated or revoked sooner. Fact Sheet for Healthcare Providers: https://www.[employer] m/Documents/Xpert%20Xpress%20SARS%20CoV-2/Fact%20Sheets/302-3802%38AFGH-CKH-5%20 HEALTHCARE%20PROVIDERS%20FACT%20SHEET.pdf Fact Sheet for Healthcare Patients: https://www.[employer]/Documents/Xpert%20Xp ress%20SARS%20CoV-2/Fact%20Sheets/3023801%18UNAD-MVV-2%20PATIENT%20FACT%20SHEET .pdfCOMPREHENSIVE METABOLIC [id number] 12:46:05 Test Item Value Reference Range Interpretation Comments TOTAL PROTEIN 6.5 gm/dL 6.0-8.5 (BEAKER) (test code = 770) ALBUMIN (BEAKER) 3.8 g/dL 3.5-5.0 (test code = 1145) ALKALINE 144 U/L 30-115 H PHOSPHATASE (BEAKER) (test code = 346) BILIRUBIN TOTAL 0.4 mg/dL 0.1-1.2 (BEAKER) (test code = 377) SODIUM (BEAKER) 139 meq/L 135-148 (test code = 381) POTASSIUM (BEAKER) 4.0 meq/L 3.6-5.5 (test code = 379) CHLORIDE (BEAKER) 102 meq/L 98-106 (test code = 382) CO2 (BEAKER) (test 26 meq/L 20-29 code = 355) BLOOD UREA 13 mg/dL 10-26 NITROGEN (BEAKER) (test code = 354) CREATININE 0.83 mg/dL 0.50-1.20 (BEAKER) (test code = 358) GLUCOSE RANDOM 214 mg/dL 70-110 H (BEAKER) (test code = 652) CALCIUM (BEAKER) 9.0 mg/dL 8.5-10.5 (test code = 697) AST (SGOT) 13 U/L 5-40 (BEAKER) (test code = 353) ALT (SGPT) 22 U/L 5-50 (BEAKER) (test code = 347) EGFR (BEAKER) 104 Interpretatio n of eGFR (test code = 1092) mL/min/1.[address] age Description sq m Result G1 Randa l or high >=90 G2 Mildly decreased 60-89 G3a Mildl y to moderately 45-5 9 G3b Moderately to s everely 30-44 G4 Severl y decreased 15-29 G5 Kidney failure <15Reported eGF R is based on the CKD-EPI 2021 equation that d oes not use a race coefficientEsti mated GFR is not as accur ate as Creatinine Anay te in predicting glom erular filtration rate . Estimated GFR is not appl icable for dialysis patien ts Mentally Retarded Teacher ID - [id number] ID - [id number] ID - [id number] ID - [id number] ID - [id number] ID - [id number] ID - [id number] ID - [id number] ID - [id number] ID - [id number] ID - [id number] ID - [id number] ID - [id number] ID - [id number] ID - [id number] ID - [id number] ID - [id number] ID - [id number] ID - [id number] PROTHROMBIN TIME/[id number] 12:41:19 Test Item Value Reference Range Interpretation Comments PROTIME (BEAKER) 10.7 seconds 9.3-12.0 Final Infor mation (test code = 759) (Auto Outp ut) INR (BEAKER) (test 0.97 See_Comment Final Inf ormation code = 370) (Auto Output) [Automated mess age] The system [employer] generated this result transmitted ref erence range: <=5.90. The reference range was not used to int erpret this result as normal/abnormal . RECOMMENDED COUMADIN/WARFARIN INR THERAPY RANGESSTANDARD DOSE: 2.0 - 3.0 Includes: PROPHYLAXIS for venous thrombosis, systemic embolization; TREATMENT for venous thrombosis and/or pulmonary embolus.HIGH RISK: Target INR is 2.5-3.5 for patients with mechanical heart valves.CBC W/PLT COUNT & AUTO [id number] 12:26:42 Test Item Value Reference Range Interpretation Comments WHITE BLOOD CELL COUNT (BEAKER) 6.1 K/ L 4.0-10.0 (test code = 775) RED BLOOD CELL COUNT (BEAKER) 4.47 M/ L 4.20-5.80 (test code = 761) HEMOGLOBIN (BEAKER) (test code = 12.7 GM/DL 13.0-16.8 L 410) HEMATOCRIT (BEAKER) (test code = 38.5 % 36.0-50.0 411) MEAN CORPUSCULAR VOLUME (BEAKER) 86 fL 82-99 (test code = 753) MEAN CORPUSCULAR HEMOGLOBIN 28.4 pg 27.0-33.0 (BEAKER) (test code = 751) MEAN CORPUSCULAR HEMOGLOBIN CONC 33.0 GM/DL 32.0-36.0 (BEAKER) (test code = 752) RED CELL DISTRIBUTION WIDTH 13.6 % 12.0-15.0 (BEAKER) (test code = 412) PLATELET COUNT (BEAKER) (test 231 K/CU MM 150-430 code = 756) MEAN PLATELET VOLUME (BEAKER) 10.0 fL 6.0-11.5 (test code = 754) NUCLEATED RED BLOOD CELLS 0 /100 WBC 0-0 (BEAKER) (test code = 413) NEUTROPHILS RELATIVE PERCENT 46 % (BEAKER) (test code = 429) LYMPHOCYTES RELATIVE PERCENT 36 % (BEAKER) (test code = 430) MONOCYTES RELATIVE PERCENT 11 % (BEAKER) (test code = 431) EOSINOPHILS RELATIVE PERCENT 5 % (BEAKER) (test code = 432) BASOPHILS RELATIVE PERCENT 2 % (BEAKER) (test code = 437) NEUTROPHILS ABSOLUTE COUNT 2.81 K/ L 1.80-8.00 (BEAKER) (test code = 670) LYMPHOCYTES ABSOLUTE COUNT 2.21 K/ L 1.48-4.50 (BEAKER) (test code = 414) MONOCYTES ABSOLUTE COUNT (BEAKER) 0.64 K/ L 0.00-1.30 (test code = 415) EOSINOPHILS ABSOLUTE COUNT 0.28 K/ L 0.00-0.50 (BEAKER) (test code = 416) BASOPHILS ABSOLUTE COUNT (BEAKER) 0.09 K/ L 0.00-0.20 (test code = 417) IMMATURE GRANULOCYTES-RELATIVE 0.80 % 0.00-0.00 H PERCENT (BEAKER) (test code = 2801) GLUCOMETER GLUCOSE- LAB USE [id number] 08:02:00 Test Item Value Reference Range Interpretation Comments GLUCOMETER (test code = 262 mg/dL 70-100 H Mete r ID: GMG) [id number] tor: [id number] FRIDA SIDHU GLUCOMETER GLUCOSE- LAB USE [id number] 11:43:00 Test Item Value Reference Range Interpretation Comments GLUCOMETER (test code = 279 mg/dL 70-100 H Mete r ID: GMG) [id number] tor: [id number] DEPTI GIG A GLUCOMETER GLUCOSE- LAB USE [id number] 08:17:00 Test Item Value Reference Range Interpretation Comments GLUCOMETER (test code = 326 mg/dL 70-100 H Mete r ID: GMG) [id number] tor: [id number] FRIDA SIDHU GLUCOMETER GLUCOSE- LAB USE [id number] 08:17:00 Test Item Value Reference Range Interpretation Comments GLUCOMETER (test code = 404 mg/dL 70-100 H Mete r ID: GMG) [id number] tor: [id number] [facility] GLUCOMETER GLUCOSE- LAB USE [id number] 08:16:00 Test Item Value Reference Range Interpretation Comments GLUCOMETER (test code = 292 mg/dL 70-100 H Mete r ID: GMG) [id number] tor: [id number] FRIDA SIDHU GLUCOMETER GLUCOSE- LAB USE [id number] 08:16:00 Test Item Value Reference Range Interpretation Comments GLUCOMETER (test code = 315 mg/dL 70-100 H Mete r ID: GMG) [id number] tor: 48756 FRIDA SIDHU GLUCOMETER GLUCOSE- LAB USE [id number] 08:16:00 Test Item Value Reference Range Interpretation Comments GLUCOMETER (test code = 174 mg/dL 70-100 H Mete r ID: GMG) [id number] tor: 76524 FRIDA SIDHU GLUCOMETER GLUCOSE- LAB USE [id number] 08:15:00 Test Item Value Reference Range Interpretation Comments GLUCOMETER (test code 259 mg/dL 70-100 H CLEANE D METERMeter ID: = GMG) [id number] tor: 24823 JIM HAGEROOT GLUCOMETER GLUCOSE- LAB USE [id number] 08:15:00 Test Item Value Reference Range Interpretation Comments GLUCOMETER (test code 300 mg/dL 70-100 H CLEANE D METERMeter ID: = GMG) [id number] tor: [id number] REGLA ZABALATANILLA GLUCOMETER GLUCOSE- LAB USE [id number] 08:15:00 Test Item Value Reference Range Interpretation Comments GLUCOMETER (test code = 222 mg/dL 70-100 H Mete r ID: GMG) [id number] tor: [id number] FARRUKH NABIL MON GLUCOMETER GLUCOSE- LAB USE [id number] 08:14:00 Test Item Value Reference Range Interpretation Comments GLUCOMETER (test code = 219 mg/dL 70-100 H Mete r ID: GMG) [id number] tor: [id number] FARRUKH NABIL MON GLUCOMETER GLUCOSE- LAB USE [id number] 17:00:00 Test Item Value Reference Range Interpretation Comments GLUCOMETER (test code = 224 mg/dL 70-100 H Mete r ID: GMG) [id number] tor: [id number] ARNOLD YATES GLUCOMETER GLUCOSE- LAB USE [id number] 17:00:00 Test Item Value Reference Range Interpretation Comments GLUCOMETER (test code = 350 mg/dL 70-100 H Mete r ID: GMG) [id number] tor: [id number] ARNOLD Wu [facility] METABOLIC OLMSTEAD *WW*2022-09-05 10:09:00 Test Item Value Reference Range Interpretation Comments GLUCOSE (test code 300 mg/dL 75-100 H = 06D) SODIUM (test code 134 mmol/L 136-145 L = 01A) POTASSIUM (test 3.5 mmol/L 3.6-5.1 L code = 01B) CHLORIDE (test 92 mmol/L 98-107 L code = 04A) CO2 (test code = 32 mmol/L 20-31 H 02A) ANION GAP (test 13.6 mmol/L code = ANG) BUN (test code = 22 mg/dL 9-23 05D) CREATININE (test 0.9 mg/dL 0.7-1.3 code = 03E) GFR (test code = 95 See_Comment [Automated GFR) mL/min/1.73m\\S\\2 message] Th e system which generated this result transmit anjelica reference range : >=90. The reference range was not used to interpret this result as normal/abnormal . GFR 111 See_Comment [Automated MONTSERRATIAN (test mL/min/1.73m\\S\\2 message] The code = GFRAA) system which generated this result transmit anjelica reference range : >=90. The reference range was not used to interpret this result as normal/abnormal . EGFR (test code = eGFR BY EGFR) CKD-EPI CALCULATION IS NOT RECOMMENDED FOR PATIENTS UNDER 18 YEARS OF AGE. BUN/CREA (test 24 12-20 H code = BCR) CALCIUM (test code 8.8 mg/dL 8.3-10.6 = 09D) BILI TOTAL (test 0.8 mg/dL 0.2-1.0 code = 11A) PROTEIN (test code 6.0 g/dL 5.7-8.2 = 07D) ALBUMIN (test code 3.7 g/dL 3.2-4.8 = 08D) GLOBULIN (test 2.3 g/dL 1.5-3.8 code = GLB) ALB/GLOB (test 1.6 1.0-2.6 code = AGRR) ALK PHOS (test 84 IU/L 46-116 code = 35A) AST (test code = 13 IU/L See_Comment [Automated 30A) message] The system which generated this result transmit anjelica reference range : <=33. The reference range was not used to interpret this result as normal/abnormal . ALT (test code = <7 IU/L 10-49 L 31A) CBC (INCLUDES AUTOMATED DIFFERENTIAL)*[id number] 09:55:00 Test Item Value Reference Range Interpretation Comments WBC (test code = WBC) 8.7 10\\S\\3/uL 4.5-11.0 RBC (test code = RBC) 4.69 10\\S\\6/uL 4.20-5.60 HGB (test code = HBG) 13.0 g/dL 14.0-18.0 L HCT (test code = HCT) 38.6 % 35.0-46.0 MCV (test code = MCV) 82.3 fL 80.0-94.0 MCH (test code = MCH) 27.7 pg 27.0-31.0 MCHC (test code = MCHC) 33.7 g/dL 32.0-36.0 RDW (test code = RDW) 12.4 % 11.5-14.5 PLT (test code = PLT) 225 10\\S\\3/uL 130-400 MPV (test code = MPV) 9.6 fL 9.4-12.4 NEUTROP # (test code = NE#) 4.9 10\\S\\3/uL 2.0-8.0 LYMPH # (test code = LY#) 2.3 10\\S\\3/uL 1.2-4.0 MONOCYTE # (test code = MO#) 1.0 10\\S\\3/uL 0.0-1.1 EOSINOPH # (test code = EO#) 0.4 10\\S\\3/uL 0.0-0.7 BASOPHIL # (test code = BA#) 0.1 10\\S\\3/uL 0.0-0.3 IG # (test code = IG#) 0.05 10\\S\\3/uL 0.00-0.06 NRBC # (test code = NRBC#) 0.00 10\\S\\3/uL 0.00-0.01 NEUTROPH % (test code = NE%) 56.2 % 35.0-73.0 LYMPH % (test code = LY%) 26.4 % 20.0-55.0 MONO % (test code = MO%) 11.4 % 2.5-10.0 H EOSINOPH % (test code = EO%) 4.4 % 0.0-5.0 BASOPHIL % (test code = BA%) 1.0 % 0.0-2.0 IG % (test code = IG%) 0.6 % 0.0-0.8 NRBC% (test code = NRBC%) 0.0 % 0.0-0.2 MANDIFF (test code = WMDIFF) NO NO RBC MORPH (test code = NORMAL WRBCMOR) GLUCOMETER GLUCOSE- LAB USE [id number] 16:51:00 Test Item Value Reference Range Interpretation Comments GLUCOMETER (test code = 328 mg/dL 70-100 H Mete r ID: GMG) [id number] tor: [id number] FARRUKH QURESHII MON GLUCOMETER GLUCOSE- LAB USE [id number] 16:51:00 Test Item Value Reference Range Interpretation Comments GLUCOMETER (test code = 515 mg/dL 70-100 HH Mete r ID: GMG) [id number] tor: [id number] FARRUKH QURESHII MON GLUCOMETER GLUCOSE- LAB USE [id number] 16:51:00 Test Item Value Reference Range Interpretation Comments GLUCOMETER (test code = 289 mg/dL 70-100 H Mete r ID: GMG) [id number] tor: [id number] FRIDA SIDHU GLUCOMETER GLUCOSE- LAB USE [id number] 16:50:00 Test Item Value Reference Range Interpretation Comments GLUCOMETER (test code = 310 mg/dL 70-100 H Mete r ID: GMG) [id number] tor: [id number] FRIDA SIDHU GLUCOMETER GLUCOSE- LAB USE [id number] 16:50:00 Test Item Value Reference Range Interpretation Comments GLUCOMETER (test code 208 mg/dL 70-100 H CLEANE D METERMeter ID: = GMG) [id number] tor: [id number] JIM HAGEROOT GLUCOMETER GLUCOSE- LAB USE [id number] 16:50:00 Test Item Value Reference Range Interpretation Comments GLUCOMETER (test code 341 mg/dL 70-100 H CLEANE D METERMeter ID: = GMG) [id number] tor: 13954 JIM ESCOBAR GLUCOMETER GLUCOSE- LAB USE [id number] 16:50:00 Test Item Value Reference Range Interpretation Comments GLUCOMETER (test code = 233 mg/dL 70-100 H Mete r ID: GMG) [id number] tor: 02415 FRIDA SIDHU GLUCOMETER GLUCOSE- LAB USE [id number] 16:49:00 Test Item Value Reference Range Interpretation Comments GLUCOMETER (test code = 232 mg/dL 70-100 H Mete r ID: GMG) [id number] tor: [id number] FRIDA SIDHU GLUCOMETER GLUCOSE- LAB USE [id number] 16:49:00 Test Item Value Reference Range Interpretation Comments GLUCOMETER (test code = 228 mg/dL 70-100 H Mete r ID: GMG) [id number] tor: 79675 FRIDA SIDHU GLUCOMETER GLUCOSE- LAB USE [id number] 16:49:00 Test Item Value Reference Range Interpretation Comments GLUCOMETER (test code = 324 mg/dL 70-100 H Mete r ID: GMG) [id number] tor: [id number] LAVERN ESPARZA GLUCOMETER GLUCOSE- LAB USE [id number] 16:49:00 Test Item Value Reference Range Interpretation Comments GLUCOMETER (test code = 210 mg/dL 70-100 H Mete r ID: GMG) [id number] tor: 52114 FRIDA SIDHU GLUCOMETER GLUCOSE- LAB USE [id number] 16:48:00 Test Item Value Reference Range Interpretation Comments GLUCOMETER (test code = 258 mg/dL 70-100 H Mete r ID: GMG) [id number] tor: 35951 FRIDA SIDHU GLUCOMETER GLUCOSE- LAB USE [id number] 16:48:00 Test Item Value Reference Range Interpretation Comments GLUCOMETER (test code = 244 mg/dL 70-100 H Mete r ID: GMG) [id number] tor: 18403 FRIDA SIDHU GLUCOMETER GLUCOSE- LAB USE [id number] 15:51:00 Test Item Value Reference Range Interpretation Comments GLUCOMETER (test code = 322 mg/dL 70-100 H Mete r ID: GMG) [id number] tor: [id number] ARNOLD PENALEY GLUCOMETER GLUCOSE- LAB USE [id number] 12:02:00 Test Item Value Reference Range Interpretation Comments GLUCOMETER (test code = 358 mg/dL 70-100 H Mete r ID: GMG) [id number] tor: 46012 ARNOLD A SHLEY GLUCOMETER GLUCOSE- LAB USE [id number] 08:16:00 Test Item Value Reference Range Interpretation Comments GLUCOMETER (test code = 274 mg/dL 70-100 H Mete r ID: GMG) [id number] tor: [id number] ARNOLD PENAJESSE COMPREHENSIVE METABOLIC OLMSTEAD *WW*2022-09-03 05:55:00 Test Item Value Reference Range Interpretation Comments GLUCOSE (test code 221 mg/dL 75-100 H = 06D) SODIUM (test code 134 mmol/L 136-145 L = 01A) POTASSIUM (test 4.5 mmol/L 3.6-5.1 code = 01B) CHLORIDE (test 94 mmol/L 98-107 L code = 04A) CO2 (test code = 29 mmol/L 20-31 02A) ANION GAP (test 15.1 mmol/L code = ANG) BUN (test code = 14 mg/dL 9-23 05D) CREATININE (test 0.9 mg/dL 0.7-1.3 code = 03E) GFR (test code = 95 See_Comment [Automated GFR) mL/min/1.73m\\S\\2 message] e system which generated this result transmit anjelica reference range : >=90. The reference range was not used to interpret this result as normal/abnormal . GFR 111 See_Comment [Automated MONTSERRATIAN (test mL/min/1.73m\\S\\2 message] The code = GFRAA) system which generated this result transmit anjelica reference range : >=90. The reference range was not used to interpret this result as normal/abnormal . EGFR (test code = eGFR BY EGFR) CKD-EPI CALCULATION IS NOT RECOMMENDED FOR PATIENTS UNDER 18 YEARS OF AGE. BUN/CREA (test 10-05 code = BCR) CALCIUM (test code 8.9 mg/dL 8.3-10.6 = 09D) BILI TOTAL (test 0.9 mg/dL 0.2-1.0 code = 11A) PROTEIN (test code 6.5 g/dL 5.7-8.2 = 07D) ALBUMIN (test code 4.0 g/dL 3.2-4.8 = 08D) GLOBULIN (test 2.5 g/dL 1.5-3.8 code = GLB) ALB/GLOB (test 1.6 1.0-2.6 code = AGRR) ALK PHOS (test 90 IU/L 46-116 code = 35A) AST (test code = 11 IU/L See_Comment [Automated 30A) message] The system which generated this result transmit anjelica reference range : <=33. The reference range was not used to interpret this result as normal/abnormal . ALT (test code = <7 IU/L 10-49 L 31A) CBC (INCLUDES AUTOMATED DIFFERENTIAL)*[id number] 05:38:00 Test Item Value Reference Range Interpretation Comments WBC (test code = WBC) 6.8 10\\S\\3/uL 4.5-11.0 RBC (test code = RBC) 5.00 10\\S\\6/uL 4.20-5.60 HGB (test code = HBG) 13.9 g/dL 14.0-18.0 L HCT (test code = HCT) 41.5 % 35.0-46.0 MCV (test code = MCV) 83.0 fL 80.0-94.0 MCH (test code = MCH) 27.8 pg 27.0-31.0 MCHC (test code = MCHC) 33.5 g/dL 32.0-36.0 RDW (test code = RDW) 12.8 % 11.5-14.5 PLT (test code = PLT) 201 10\\S\\3/uL 130-400 MPV (test code = MPV) 10.2 fL 9.4-12.4 NEUTROP # (test code = NE#) 3.8 10\\S\\3/uL 2.0-8.0 LYMPH # (test code = LY#) 1.8 10\\S\\3/uL 1.2-4.0 MONOCYTE # (test code = MO#) 0.9 10\\S\\3/uL 0.0-1.1 EOSINOPH # (test code = EO#) 0.2 10\\S\\3/uL 0.0-0.7 BASOPHIL # (test code = BA#) 0.1 10\\S\\3/uL 0.0-0.3 IG # (test code = IG#) 0.04 10\\S\\3/uL 0.00-0.06 NRBC # (test code = NRBC#) 0.00 10\\S\\3/uL 0.00-0.01 NEUTROPH % (test code = NE%) 56.3 % 35.0-73.0 LYMPH % (test code = LY%) 26.7 % 20.0-55.0 MONO % (test code = MO%) 13.2 % 2.5-10.0 H EOSINOPH % (test code = EO%) 2.2 % 0.0-5.0 BASOPHIL % (test code = BA%) 1.0 % 0.0-2.0 IG % (test code = IG%) 0.6 % 0.0-0.8 NRBC% (test code = NRBC%) 0.0 % 0.0-0.2 MANDIFF (test code = WMDIFF) NO NO RBC MORPH (test code = NORMAL WRBCMOR) COMPREHENSIVE METABOLIC OLMSTEAD *WW*2022-09-02 05:52:00 Test Item Value Reference Range Interpretation Comments GLUCOSE (test code 218 mg/dL 75-100 H = 06D) SODIUM (test code 134 mmol/L 136-145 L = 01A) POTASSIUM (test 3.5 mmol/L 3.6-5.1 L code = 01B) CHLORIDE (test 96 mmol/L 98-107 L code = 04A) CO2 (test code = 27 mmol/L 20-31 02A) ANION GAP (test 14.6 mmol/L code = ANG) BUN (test code = 15 mg/dL 9-23 05D) CREATININE (test 0.8 mg/dL 0.7-1.3 code = 03E) GFR (test code = 100 See_Comment [Automated GFR) mL/min/1.73m\\S\\2 message] Th e system which generated this result transmit anjelica reference range : >=90. The reference range was not used to interpret this result as normal/abnormal . GFR 116 See_Comment [Automated MONTSERRATIAN (test mL/min/1.73m\\S\\2 message] The code = GFRAA) system which generated this result transmit anjelica reference range : >=90. The reference range was not used to interpret this result as normal/abnormal . EGFR (test code = eGFR BY EGFR) CKD-EPI CALCULATION IS NOT RECOMMENDED FOR PATIENTS UNDER 18 YEARS OF AGE. BUN/CREA (test 19 12-20 code = BCR) CALCIUM (test code 8.6 mg/dL 8.3-10.6 = 09D) BILI TOTAL (test 0.9 mg/dL 0.2-1.0 code = 11A) PROTEIN (test code 6.1 g/dL 5.7-8.2 = 07D) ALBUMIN (test code 3.8 g/dL 3.2-4.8 = 08D) GLOBULIN (test 2.3 g/dL 1.5-3.8 code = GLB) ALB/GLOB (test 1.7 1.0-2.6 code = AGRR) ALK PHOS (test 89 IU/L 46-116 code = 35A) AST (test code = 11 IU/L See_Comment [Automated 30A) message] The system which generated this result transmit anjelica reference range : <=33. The reference range was not used to interpret this result as normal/abnormal . ALT (test code = 10 IU/L 10-49 31A) CBC (INCLUDES AUTOMATED DIFFERENTIAL)*[id number] 05:15:00 Test Item Value Reference Range Interpretation Comments WBC (test code = WBC) 6.7 10\\S\\3/uL 4.5-11.0 RBC (test code = RBC) 4.75 10\\S\\6/uL 4.20-5.60 HGB (test code = HBG) 13.3 g/dL 14.0-18.0 L HCT (test code = HCT) 39.1 % 35.0-46.0 MCV (test code = MCV) 82.3 fL 80.0-94.0 MCH (test code = MCH) 28.0 pg 27.0-31.0 MCHC (test code = MCHC) 34.0 g/dL 32.0-36.0 RDW (test code = RDW) 13.0 % 11.5-14.5 PLT (test code = PLT) 171 10\\S\\3/uL 130-400 MPV (test code = MPV) 10.3 fL 9.4-12.4 NEUTROP # (test code = NE#) 4.0 10\\S\\3/uL 2.0-8.0 LYMPH # (test code = LY#) 1.6 10\\S\\3/uL 1.2-4.0 MONOCYTE # (test code = MO#) 0.9 10\\S\\3/uL 0.0-1.1 EOSINOPH # (test code = EO#) 0.1 10\\S\\3/uL 0.0-0.7 BASOPHIL # (test code = BA#) 0.1 10\\S\\3/uL 0.0-0.3 IG # (test code = IG#) 0.04 10\\S\\3/uL 0.00-0.06 NRBC # (test code = NRBC#) 0.00 10\\S\\3/uL 0.00-0.01 NEUTROPH % (test code = NE%) 60.1 % 35.0-73.0 LYMPH % (test code = LY%) 23.5 % 20.0-55.0 MONO % (test code = MO%) 13.3 % 2.5-10.0 H EOSINOPH % (test code = EO%) 1.5 % 0.0-5.0 BASOPHIL % (test code = BA%) 1.0 % 0.0-2.0 IG % (test code = IG%) 0.6 % 0.0-0.8 NRBC% (test code = NRBC%) 0.0 % 0.0-0.2 MANDIFF (test code = WMDIFF) NO NO RBC MORPH (test code = NORMAL WRBCMOR) XR HIP LEFT UNILATERAL 2 VIEWS*WW*2022-09-01 15:07:12 [facility] : 1965 Sex: MEXAMINATION: XR HIP 2 OR MORE VIEWSINDICATION: Surgical follow-up, left hip fractureCOMPARISON: 08/30/2022LOCATION: [id number]: Improved alignment of intertrochanteric femur fracture following internal surgical fixation.Postoperative soft tissue swelling and gas. No unexpected radiopaque foreign body.Electronically signed by: Ray Hernandez MD 09/01/2022 3:07 PM [facility] [id number] METABOLIC PANEL *WW*2022-09-01 06:01:00 Test Item Value Reference Range Interpretation Comments GLUCOSE (test code 230 mg/dL 75-100 H = 06D) SODIUM (test code 133 mmol/L 136-145 L = 01A) POTASSIUM (test 4.1 mmol/L 3.6-5.1 code = 01B) CHLORIDE (test 98 mmol/L 98-107 code = 04A) CO2 (test code = 27 mmol/L 20-31 02A) ANION GAP (test 12.3 mmol/L code = ANG) BUN (test code = 17 mg/dL 9-23 05D) CREATININE (test 0.9 mg/dL 0.7-1.3 code = 03E) GFR (test code = 95 See_Comment [Automated GFR) mL/min/1.73m\\S\\2 message] e system which generated this result transmit anjelica reference range : >=90. The reference range was not used to interpret this result as normal/abnormal . GFR 111 See_Comment [Automated [place] (test mL/min/1.73m\\S\\2 message] The code = GFRAA) system which generated this result transmit anjelica reference range : >=90. The reference range was not used to interpret this result as normal/abnormal . EGFR (test code = eGFR BY EGFR) CKD-EPI CALCULATION IS NOT RECOMMENDED FOR PATIENTS UNDER 18 YEARS OF AGE. BUN/CREA (test 10-05 code = BCR) CALCIUM (test code 9.2 mg/dL 8.3-10.6 = 09D) CBC (INCLUDES AUTOMATED DIFFERENTIAL)*[id number] 05:09:00 Test Item Value Reference Range Interpretation Comments WBC (test code = WBC) 10.2 10\\S\\3/uL 4.5-11.0 RBC (test code = RBC) 5.16 10\\S\\6/uL 4.20-5.60 HGB (test code = HBG) 14.4 g/dL 14.0-18.0 HCT (test code = HCT) 42.9 % 35.0-46.0 MCV (test code = MCV) 83.1 fL 80.0-94.0 MCH (test code = MCH) 27.9 pg 27.0-31.0 MCHC (test code = MCHC) 33.6 g/dL 32.0-36.0 RDW (test code = RDW) 12.9 % 11.5-14.5 PLT (test code = PLT) 198 10\\S\\3/uL 130-400 MPV (test code = MPV) 10.6 fL 9.4-12.4 NEUTROP # (test code = NE#) 7.2 10\\S\\3/uL 2.0-8.0 LYMPH # (test code = LY#) 1.9 10\\S\\3/uL 1.2-4.0 MONOCYTE # (test code = MO#) 1.0 10\\S\\3/uL 0.0-1.1 EOSINOPH # (test code = EO#) 0.0 10\\S\\3/uL 0.0-0.7 BASOPHIL # (test code = BA#) 0.1 10\\S\\3/uL 0.0-0.3 IG # (test code = IG#) 0.06 10\\S\\3/uL 0.00-0.06 NRBC # (test code = NRBC#) 0.00 10\\S\\3/uL 0.00-0.01 NEUTROPH % (test code = NE%) 70.5 % 35.0-73.0 LYMPH % (test code = LY%) 18.1 % 20.0-55.0 L MONO % (test code = MO%) 9.7 % 2.5-10.0 EOSINOPH % (test code = EO%) 0.2 % 0.0-5.0 BASOPHIL % (test code = BA%) 0.9 % 0.0-2.0 IG % (test code = IG%) 0.6 % 0.0-0.8 NRBC% (test code = NRBC%) 0.0 % 0.0-0.2 MANDIFF (test code = WMDIFF) NO NO RBC MORPH (test code = NORMAL WRBCMOR) GLUCOMETER GLUCOSE- LAB USE [id number] 01:52:00 Test Item Value Reference Range Interpretation Comments GLUCOMETER (test code = 257 mg/dL 70-100 H Mete r ID: GMG) [id number] tor: [id number] [facility] GLUCOMETER GLUCOSE- LAB USE [id number] 01:52:00 Test Item Value Reference Range Interpretation Comments GLUCOMETER (test 209 mg/dL 70-100 H Result Not code = GMG) ConfirmedMeter ID: [id number] tor: [id number] [facility] PRO TIME AND PTT *WW*2022-08-31 18:54:00 Test Item Value Reference Range Interpretation Comments PT (test code = 12.5 s 9.8-13.6 TT) INR (test code = 1.1 INR) INRH (test code = SUGGESTED THERAPEUTIC INRH) RANGE FOR INR: 2.5 - 3.5 For Patients with Prosthetic Valves or Patients with recurrent Thromboembolic Events 2.0 - 3.0 For Most Other Applications PTT (test code = 27.3 s 20.2-38.0 PTT) PTTH (test code = To monitor the PTTH) effectiveness of heparin, we offer the Anti-Xa (Heparin Assay). It can be used for either unfractionated or LMW Heparin. Order Code is ANTI-XA BASIC METABOLIC PANEL *WW*2022-08-31 18:51:00 Test Item Value Reference Range Interpretation Comments GLUCOSE (test code 260 mg/dL 75-100 H = 06D) SODIUM (test code 137 mmol/L 136-145 = 01A) POTASSIUM (test 3.8 mmol/L 3.6-5.1 code = 01B) CHLORIDE (test 99 mmol/L 98-107 code = 04A) CO2 (test code = 30 mmol/L 20-31 02A) ANION GAP (test 11.8 mmol/L code = ANG) BUN (test code = 24 mg/dL 9-23 H 05D) CREATININE (test 0.9 mg/dL 0.7-1.3 code = 03E) GFR (test code = 95 See_Comment [Automated GFR) mL/min/1.73m\\S\\2 message] Th e system which generated this result transmit anjelica reference range : >=90. The reference range was not used to interpret this result as normal/abnormal . GFR 111 See_Comment [Automated MONTSERRATIAN (test mL/min/1.73m\\S\\2 message] The code = GFRAA) system which generated this result transmit anjelica reference range : >=90. The reference range was not used to interpret this result as normal/abnormal . EGFR (test code = eGFR BY EGFR) CKD-EPI CALCULATION IS NOT RECOMMENDED FOR PATIENTS UNDER 18 YEARS OF AGE. BUN/CREA (test 27 12-20 H code = BCR) CALCIUM (test code 9.2 mg/dL 8.3-10.6 = 09D) GLUCOMETER GLUCOSE- LAB USE [id number] 16:20:00 Test Item Value Reference Range Interpretation Comments GLUCOMETER (test code = 293 mg/dL 70-100 H Mete r ID: GMG) [id number] tor: [id number] [place] [facility] GLUCOMETER GLUCOSE- LAB USE [id number] 16:20:00 Test Item Value Reference Range Interpretation Comments GLUCOMETER (test 312 mg/dL 70-100 H Result Not code = GMG) ConfirmedMeter ID: [id number] tor: [id number] [facility] GLUCOMETER GLUCOSE- LAB USE [id number] 16:19:00 Test Item Value Reference Range Interpretation Comments GLUCOMETER (test 404 mg/dL 70-100 H Result Not code = GMG) ConfirmedMeter ID: [id number] tor: [id number] [facility] BASIC METABOLIC PANEL *WW*2022-08-31 14:00:00 Test Item Value Reference Range Interpretation Comments GLUCOSE (test code 332 mg/dL 75-100 H = 06D) SODIUM (test code 137 mmol/L 136-145 = 01A) POTASSIUM (test 4.0 mmol/L 3.6-5.1 code = 01B) CHLORIDE (test 98 mmol/L 98-107 code = 04A) CO2 (test code = 29 mmol/L 20-31 02A) ANION GAP (test 14.0 mmol/L code = ANG) BUN (test code = 24 mg/dL 9-23 H 05D) CREATININE (test 1.0 mg/dL 0.7-1.3 code = 03E) GFR (test code = 84 See_Comment L [Automated GFR) mL/min/1.73m\\S\\2 message] Th e system which generated this result transmit anjelica reference range : >=90. The reference range was not used to interpret this result as normal/abnormal . GFR 97 See_Comment [Automated MONTSERRATIAN (test mL/min/1.73m\\S\\2 message] The code = GFRAA) system which generated this result transmit anjelica reference range : >=90. The reference range was not used to interpret this result as normal/abnormal . EGFR (test code = eGFR BY EGFR) CKD-EPI CALCULATION IS NOT RECOMMENDED FOR PATIENTS UNDER 18 YEARS OF AGE. BUN/CREA (test 24 12-20 H code = BCR) CALCIUM (test code 9.3 mg/dL 8.3-10.6 = 09D) GLUCOMETER GLUCOSE- LAB USE [id number] 12:20:00 Test Item Value Reference Range Interpretation Comments GLUCOMETER (test code = 390 mg/dL 70-100 H Mete r ID: GMG) [id number] tor: [id number] [facility] GLUCOMETER GLUCOSE- LAB USE [id number] 12:19:00 Test Item Value Reference Range Interpretation Comments GLUCOMETER (test code 443 mg/dL 70-100 H Meter ID: = GMG) [id number] tor: [id number] [facility] GLUCOMETER GLUCOSE- LAB USE [id number] 12:19:00 Test Item Value Reference Range Interpretation Comments GLUCOMETER (test code = 397 mg/dL 70-100 H Mete r ID: GMG) [id number] tor: [id number] [facility] GLUCOMETER GLUCOSE- LAB USE [id number] 07:03:00 Test Item Value Reference Range Interpretation Comments GLUCOMETER (test code = GMG) >600 mg/dL 70-100 HH COMPREHENSIVE METABOLIC OLMSTEAD *WW*2022-08-31 05:57:00 Test Item Value Reference Range Interpretation Comments GLUCOSE (test code 387 mg/dL 75-100 H = 06D) SODIUM (test code 133 mmol/L 136-145 L = 01A) POTASSIUM (test 4.1 mmol/L 3.6-5.1 code = 01B) CHLORIDE (test 94 mmol/L 98-107 L code = 04A) CO2 (test code = 29 mmol/L 20-31 02A) ANION GAP (test 14.1 mmol/L code = ANG) BUN (test code = 25 mg/dL 9-23 H 05D) CREATININE (test 1.3 mg/dL 0.7-1.3 code = 03E) GFR (test code = 61 See_Comment L [Automated GFR) mL/min/1.73m\\S\\2 message] Th e system which generated this result transmit anjelica reference range : >=90. The reference range was not used to interpret this result as normal/abnormal . GFR 71 See_Comment L [Automated MONTSERRATIAN (test mL/min/1.73m\\S\\2 message] The code = GFRAA) system which generated this result transmit anjelica reference range : >=90. The reference range was not used to interpret this result as normal/abnormal . EGFR (test code = eGFR BY EGFR) CKD-EPI CALCULATION IS NOT RECOMMENDED FOR PATIENTS UNDER 18 YEARS OF AGE. BUN/CREA (test 19 12-20 code = BCR) CALCIUM (test code 9.1 mg/dL 8.3-10.6 = 09D) BILI TOTAL (test 0.6 mg/dL 0.2-1.0 code = 11A) PROTEIN (test code 6.7 g/dL 5.7-8.2 = 07D) ALBUMIN (test code 4.2 g/dL 3.2-4.8 = 08D) GLOBULIN (test 2.5 g/dL 1.5-3.8 code = GLB) ALB/GLOB (test 1.7 1.0-2.6 code = AGRR) ALK PHOS (test 123 IU/L 46-116 H code = 35A) AST (test code = 17 IU/L See_Comment [Automated 30A) message] The system which generated this result transmit anjelica reference range : <=33. The reference range was not used to interpret this result as normal/abnormal . ALT (test code = 15 IU/L 10-49 31A) CBC (INCLUDES AUTOMATED DIFFERENTIAL)*[id number] 05:37:00 Test Item Value Reference Range Interpretation Comments WBC (test code = WBC) 12.3 10\\S\\3/uL 4.5-11.0 H RBC (test code = RBC) 5.85 10\\S\\6/uL 4.20-5.60 H HGB (test code = HBG) 16.3 g/dL 14.0-18.0 HCT (test code = HCT) 46.6 % 35.0-46.0 H MCV (test code = MCV) 79.7 fL 80.0-94.0 L MCH (test code = MCH) 27.9 pg 27.0-31.0 MCHC (test code = MCHC) 35.0 g/dL 32.0-36.0 RDW (test code = RDW) 12.8 % 11.5-14.5 PLT (test code = PLT) 234 10\\S\\3/uL 130-400 MPV (test code = MPV) 10.3 fL 9.4-12.4 NEUTROP # (test code = NE#) 9.2 10\\S\\3/uL 2.0-8.0 H LYMPH # (test code = LY#) 1.5 10\\S\\3/uL 1.2-4.0 MONOCYTE # (test code = MO#) 1.3 10\\S\\3/uL 0.0-1.1 H EOSINOPH # (test code = EO#) 0.1 10\\S\\3/uL 0.0-0.7 BASOPHIL # (test code = BA#) 0.1 10\\S\\3/uL 0.0-0.3 IG # (test code = IG#) 0.08 10\\S\\3/uL 0.00-0.06 H NRBC # (test code = NRBC#) 0.00 10\\S\\3/uL 0.00-0.01 NEUTROPH % (test code = NE%) 75.0 % 35.0-73.0 H LYMPH % (test code = LY%) 12.1 % 20.0-55.0 L MONO % (test code = MO%) 10.9 % 2.5-10.0 H EOSINOPH % (test code = EO%) 0.6 % 0.0-5.0 BASOPHIL % (test code = BA%) 0.7 % 0.0-2.0 IG % (test code = IG%) 0.7 % 0.0-0.8 NRBC% (test code = NRBC%) 0.0 % 0.0-0.2 MANDIFF (test code = WMDIFF) NO NO RBC MORPH (test code = NORMAL WRBCMOR) GLUCOMETER GLUCOSE- LAB USE [id number] 23:16:00 Test Item Value Reference Range Interpretation Comments GLUCOMETER (test code = 428 mg/dL 70-100 H Mete r ID: GMG) [id number] tor: [id number] [facility] GLUCOMETER GLUCOSE- LAB USE [id number] 23:16:00 Test Item Value Reference Range Interpretation Comments GLUCOMETER (test 591 mg/dL 70-100 HH DAILY MAINT ENANCEMeter code = GMG) ID: [id number] perator: [id number] [address] SARS-CoV (RAPID ANTIGEN) [id number] 17:24:00 Test Item Value Reference Range Interpretation Comments SARS-CoV (ANTIGEN) NEGATIVE NEGATIVE (test code = COVAG) COVID AG (test This test has been code = COVAGC) marketed under the FDA Emergency Use Authorization (EUA) to meet challenges of the COVID-19 pandemic. The validation standards normally enforced by the FDA and the [employer] (CAP) are more stringent than those required for this test. Therefore, the result should be interpreted with caution and close attention to other clinical and epidemiological data MetyLyte 8 Panel *OW* [id number] 17:23:00 Test Item Value Reference Range Interpretation Comments GLUCOSE (test code = GGUL) 647 mg/dL 73-118 HH BUN (test code = GBUN) 33 mg/dL 7-22 H CREATININE (test code = GCRE) 1.9 mg/dL 0.6-1.2 H CK TOTAL (test code = GCK) 152 U/L 39-380 SODIUM (test code = GNA+) 127 mmol/L 128-145 L POTASSIUM (test code = GK+) 3.6 mmol/L 3.6-5.1 CHLORIDE (test code = GCL-) 82 mmol/L 98-108 L TCO2 (test code = GTC02) 25 mmol/L 18-33 CBC (INCLUDES AUTOMATED DIFFERENTIAL) *2022-08-30 17:15:00 Test Item Value Reference Range Interpretation Comments WBC (test code = WBC) 15.6 10\\S\\3/uL 4.5-11.0 H RBC (test code = RBC) 6.09 10\\S\\6/uL 4.20-5.60 H HGB (test code = HBG) 17.5 g/dL 14.0-18.0 HCT (test code = HCT) 51.6 % 35.0-46.0 H MCV (test code = MCV) 84.8 fL 80.0-94.0 MCH (test code = MCH) 28.7 pg 27.0-31.0 MCHC (test code = MCHC) 33.9 g/dL 32.0-36.0 RDW (test code = RDW) 14.4 % 11.5-14.5 PLT (test code = PLT) 233 10\\S\\3/uL 130-400 MPV (test code = OMPV) 8.7 fL 6.2-10.2 NEUTROP # (test code = NE#) 13.4 10\\S\\3/uL 2.0-8.0 H LYMPH # (test code = LY#) 1.4 10\\S\\3/uL 1.2-4.0 MID # (test code = GMID#) 0.8 10\\S\\3/uL 0.0-1.1 GRAN % (test code = GRA%) 85.8 % 35.0-73.0 H LYMPH % (test code = GLY%) 8.8 % 20.0-55.0 L MID % (test code = GMID%) 5.4 % 0.0-10.0 PROTHROMBIN TIME i-STAT OW2022-08-30 17:09:00 Test Item Value Reference Range Interpretation Comments PT (test code = 28.1 s 10.0-13.0 H PT1) INR (test code = 2.4 INR) INRH (test code = SUGGESTED THERAPEUTIC INRH) RANGE FOR INR: 2.5 - 3.5 For Patients with Prosthetic Valves or Patients with recurrent Thromboembolic Events 2.0 - 3.0 For Most Other Applications XR FEMUR LEFT AP & LATERAL *OW*2022-08-30 16:09:04 [facility] : 1965 Sex: MEXAMINATION:XR FEMUR LEFT AP & LATERAL *OW*CLINICAL INDICATION:Male, 56 years old with Pain of left hip jointCOMPARISON: NoneFINDINGS:Two view(s) of the femur obtained.Oblique intertrochanteric left femoral neck fracture. There is lateral angulation of the fracture apex. Fracture fragments otherwise do not appear disp laced. The visualized femur is otherwise intact. The femoral condyles are only partially visualized.No focal soft tissue abnormality.Hip joint space is maintained.Bone marrow mineralization is homogeneous.IMPRESSION: Intratrochanteric left femoral neck fracture.Electronically signed by: Jing Back MD 08/30/2022 4:09 PM [facility] HIP LEFT UNILATERAL 2 VWS *OW*2022-08-30 16:08:53 [facility] : 1965 Sex: MX-ray left hip.INDICATION: Pain, fallFINDINGS: No priors. Comminuted intertrochanteric fracture of the left hip. Femoralhead contour is well preserved. Moderate joint space narrowing. Mild coxa valga deformity. No significant soft tissue abnormality seen. IMPRESSION:1. Comminuted left hip intertrochanteric fracture. Electronically signed by: Domingo Graham MD 08/30/2022 4:08 PM [facility] [id number] Metabolic [id number] 08:20:00 Test Item Value Reference Range Interpretation Comments SODIUM (test code = NA) 142.0 mmol/L 136.0-145.0 N Potassium,K (test code = K) 3.6 mmol/L 3.0-5.1 N Chloride (test code = CL) 104 mmol/L 98-107 N Carbon Dioxide (test code = 31 mmol/L 20-31 N CO2) Anion Gap (test code = GAP) 7 mmol/L 5-15 N Blood Urea Nitrogen (test code 13 mg/dL 9-23 N = BUN) Creatinine (test code = CREATT) 0.78 mg/dL 0.55-1.02 N Creatinine Clr Calc Pharmacy 121.54 mL/min (test code = CRCLPHA) Estimated GFR ( Noemi > 60 mL/min/1.73m2 (test code = EGFRAA) Estimated GFR (Non Afr Noemi > 60 mL/min/1.73m2 (test code = EGFRNAA) BUN/Creatinine Ratio (test code 17 ratio 10-20 N = BCRATIO) Glucose (test code = GLU) 61 mg/dL 74-106 L Osmolality,Calculated (test 291.6 code = OSMOC) Calcium (test code = CA) 9.2 mg/dL 8.3-10.6 N Lipid [id number] 08:20:00 Test Item Value Reference Range Interpretation Comments Triglycerides (test code 88 mg/dL 9-200 N = TRIG) Cholesterol (test code = 136 mg/dL 0-200 N CHOL) LDL 70 mg/dL 0-130 N LDL (mg/dL)Opti mal Cholesterol,Calculated <100N ear Optimal (test code = LDLC) 100-129Bo rderline High 130-159Hig h 160-189Very Hig h >=190 VLDL CHOLESTEROL (test 18 mg/dL code = VLDL) HDL Cholesterol (test 48 mg/dL 40-60 N code = HDL) LDL/HDL Ratio (test code 3 = LDLHDL) Chol/HDL Ratio (test code 2.8 ratio 0.0-5.0 N = CHLHDL) CT HEAD W/O CONTRAST *OW*2021-07-29 10:34:27 [facility] : 1965 Sex: MEXAMINATION:CT HEAD W/O CONTRAST *OW*CLINICAL INDICATION:Male, 55 years old with HEADACHE/WEAKNESSTECHNIQUE: Axial CT images from the skull base to the vertex without intravenous contrast. Coronal and sagittal reformattedimages were created from the data set.One or more of the following dose reduction techniques were used: Automated exposure control, adjustment of the mA and/or kV according to patient size, and/or iterative reconstruction. COMPARISON: NoneFINDINGS: No focal scalp swelling identified. Cranium and skullbase appear intact. The paranasal sinuses appear clear. Middle ear cavities and mastoids appear clear. Brain density appears normal. No intracranial hemorrhage or recent cortical ischemia. No abnormal intra or extra-axial soft tissue or fluid mass.IMPRESSION: Unremarkable. No acute skull or brain finding.Electronically signed by: Jaleel Marcelino MD 07/29/2021 10:34 AM CDT CERVICAL SPINE W/O CONTRAST *OW*2021-07-29 10:30:58 [facility] : 1965 Sex: MEXAMINATION:CT CERVICAL SPINE W/O CONTRAST *OW*CLINICAL INDICATION:Male, 55 years old with HEADACHE/WEAKNESS; NECK PAINTECHNIQUE: Axial CT images through the cervical spine were obtained without intravenous contrast. Sagittal and coronal reformatted images were created from the data set.One or more of the following dose reduction techniques were used: Automated exposure control, adjustment of the mA and/or kV according to patient size, and/or iterative reconstruction. COMPARISON: No prior.FINDINGS: There is straightening of the usual cervical lordosis with the vertebral body heights maintained.Occiput to C2: Middle ear cavities and mastoids appear clear. There is advanced osteoarthritic change at the C1-C2 joints bilaterally, more extensive on the right, including deformity. There is calcification in the joint capsule and in the apical and cruciate ligaments at the dens. The prevertebral space and odontoid show no acute changes.C2-3: 2 mm central disc protrusion.C3-4: 2 to 3 mm broad-based ridging and disc bulge flattens the anterior thecal margin. Moderate spondylotic foraminal narrowing right and minimal on theleft.C4-5: Mild interspace narrowing.C5-6: Moderate interspace narrowing with 3 to 4 mm concentric annular bulge and ridging flattening the anterior thecal margin, producing minimal central canal stenosis of 9-10 mm, and moderate left spondylotic foraminal narrowing.C6-7: Moderate interspace narrowingwith 3 to 4 mm concentric annular bulge and ridging flattening the anterior thecal margin producing minimal central canal stenosis 9-10 mm and moderate bilateral spondylotic foraminal narrowing more prominent left side.C7-T1: Mild interspace narrowing. Central canal and foramina patent.IMPRESSION:1. Straightening of the usual cervical lordosis could be from muscle spasm or ligament sprain.2. Advanceddegenerative changes at the atlantodental and atlantoaxial joints, with deformity on the right. Someof the deformity could be on a developmental or posttraumatic basis to be correlated with clinical history.3. Multilevel spondylosis with spinal canal, interspace and foraminal narrowing.4. No apparentacute finding.Electronically signed by: Jaleel Marcelino MD 07/29/2021 10:30 AM CDT CHEST 1 VIEW PORTABLE *OW*2021-07-29 09:58:32 [facility] : 1965 Sex: MEXAMINATION:XR CHES T 1 VIEW PORTABLE CLINICAL INDICATION:Male, 55 years year old with HEADACHE/WEAKNESSCOMPARISON: 11/18/2020FINDINGS:Single view(s) of the chest submitted.Support Devices: None.Heart/Mediastinum: Cardiac silhouette is normal in size. Mediastinal contours are normal.Lungs/Pleura: The lungs are clear and well inflated. There is no pneumothorax or pleural effusion.Bones: Visualized skeleton is normal.IMPRESSION:No acute radiographic abnormality.Electronically signed by: Thong Cedeno MD 07/29/2021 9:58 AMCDT [id number] NATRIURETIC PEPTIDE OW2021-07-29 09:34:00 Test Item Value Reference Range Interpretation Comments BNP (test code = 143 pg/mL See_Comment H [Automated message] The [employer]) system which ge nerated this result tra nsmitted reference range : <=100. The reference r david was not used to int erpret this result as normal/abnormal . TROPONIN I OW2021-07-29 09:32:00 Test Item Value Reference Range Interpretation Comments TROPONIN I (test code = A84) <0.05 pg/mL 0.00-0.05 MetyLyte 8 Panel *OW* [id number] 09:12:00 Test Item Value Reference Range Interpretation Comments GLUCOSE (test code = GGUL) 477 mg/dL 73-118 HH BUN (test code = GBUN) 12 mg/dL 7-22 CREATININE (test code = GCRE) 0.5 mg/dL 0.6-1.2 L CK TOTAL (test code = GCK) 187 U/L 39-380 SODIUM (test code = GNA+) 132 mmol/L 128-145 POTASSIUM (test code = GK+) 4.3 mmol/L 3.6-5.1 CHLORIDE (test code = GCL-) 103 mmol/L 98-108 TCO2 (test code = GTC02) 24 mmol/L 18-33 GENERAL CHEMISTRY 13 *OW* [id number] 09:12:00 Test Item Value Reference Range Interpretation Comments GLUCOSE (test code = GGUL) 477 mg/dL 73-118 HH BUN (test code = GBUN) 12 mg/dL 7-22 CREATININE (test code = GCRE) 0.5 mg/dL 0.6-1.2 L URIC ACID (test code = GUA) 3.0 mg/dL 3.6-8.0 L CALCIUM (test code = GCL+) 9.8 mg/dL 8.0-10.3 ALBUMIN (test code = GALB) 3.3 g/dL 3.5-5.5 L PROTEIN (test code = GTP) 6.3 g/dL 6.4-8.1 L ALT (test code = GALT) 26 U/L 10-47 AST (test code = NANO) 26 U/L 11-38 ALK PHOS (test code = GALP) 84 U/L 53-128 BILI TOTAL (test code = GTBIL) 0.6 mg/dL 0.2-1.6 GGT (test code = GGGT) 30 U/L 5-65 AMYLASE (test code = GAMY) 31 U/L 14-97 URINALYSIS W/O MICROSCOPICOW2021-07-29 09:05:00 Test Item Value Reference Range Interpretation Comments COLOR (test code = Yellow YELLOW COLU) CLARITY (test code = Clear CLEAR CLA) GLUCOSE UR (test 2+ NEGATIVE A code = UA GLUCOSE) BILI UR (test code = Negative NEGATIVE BILE) KETONES UR (test Negative NEGATIVE code = OLIVE) SP GRAVITY (test 1.015 1.005-1.030 code = SPGR) PH UR (test code = 6.5 4.5-8.0 PH) PROTEIN UR (test Negative NEGATIVE code = PU) NITRITE UR (test Negative NEGATIVE code = NITRITE) UROBIL UR (test code 0.2 E.U./dL = GUROQ) UROBIL UR (test code UROBILINOGEN = GUROQC) REFERENCE RANGE 0.2 - 1.0 EU/dL BLOOD UR (test code Negative NEGATIVE = UA BLOOD) LEUK ES UR (test Negative NEGATIVE code = LEUK) CBC (INCLUDES AUTOMATED DIFFERENTIAL) *2021-07-29 09:05:00 Test Item Value Reference Range Interpretation Comments WBC (test code = WBC) 5.9 10\\S\\3/uL 4.5-11.0 RBC (test code = RBC) 5.69 10\\S\\6/uL 4.20-5.60 H HGB (test code = HBG) 15.7 g/dL 14.0-18.0 HCT (test code = HCT) 48.7 % 35.0-46.0 H MCV (test code = MCV) 85.6 fL 80.0-94.0 MCH (test code = MCH) 27.6 pg 27.0-31.0 MCHC (test code = MCHC) 32.2 g/dL 32.0-36.0 RDW (test code = RDW) 13.2 % 11.5-14.5 PLT (test code = PLT) 228 10\\S\\3/uL 130-400 MPV (test code = OMPV) 8.7 fL 6.2-10.2 NEUTROP # (test code = NE#) 3.6 10\\S\\3/uL 2.0-8.0 LYMPH # (test code = LY#) 1.8 10\\S\\3/uL 1.2-4.0 MID # (test code = GMID#) 0.5 10\\S\\3/uL 0.0-1.1 GRAN % (test code = GRA%) 61.7 % 35.0-73.0 LYMPH % (test code = GLY%) 29.7 % 20.0-55.0 MID % (test code = GMID%) 8.6 % 0.0-10.0 TROPONIN [id number] 14:14:12 Test Item Value Reference Range Interpretation Comments TROPONIN I (test <0.012 See_Comment [Automated code = [id number]) message] The system which generated this result transmitted reference range : <=0.034 ng/mL. The reference range was not used to interpr et this result as normal/abnormal . ANTONIO (test code = Equal or Less than ANTONIO) 0.034 ng/ml---Normal ?Note: Cardiac troponin begins to rise 3-4 hours after the onset of ischemia. Repeat in 4-6 hours if the sample was drawn within 3-4 hours of the onset of the symptom and found normal. Between 0.035 and 0.120 ng/mL--- Borderline. Questionable myocardial injury or necrosis ? ?Note: Serial measurement may be necessary to confirm or exclude the diagnosis of myocardial injury or necrosis; Clinical correlation (symptoms, EKGs, imaging studies, and others) required; Repeat in 4-6 hours if clinically indicated. ? Equal or Higher than 0.121 ng/mL---Abnormal. Myocardial Injury or Necrosis Likely ? Biotin has been reported to cause a negative bias, interpret results relative to patient's use of biotin. ? Lab Interpretation Normal (test code = 03014-5) [facility] 12:43:09 Test Item Value Reference Range Interpretation Comments POCT GLU (test code = 7602691313) 346 mg/dL 70-110 H Lab Interpretation (test code = Abnormal 74695-3) [facility] [id number] 12:13:40 Test Item Value Reference Range Interpretation Comments TSH (test code = See_Comment [Automated message] [id number]) The system [employer] generated this result transmitted ref erence range: 0.45 - 4 .70 mIU/L. The refe rence range was not u sed to interpret this result as normal/abnor mal. Lab Interpretation (test Normal code = 58572-1) [facility] 11:42:00 Test Item Value Reference Range Interpretation Comments PHOSPHORUS (test code = 7018985329) 4.8 mg/dL 2.5-5.0 Lab Interpretation (test code = Normal 87564-6) [facility] [id number] 11:41:19 Test Item Value Reference Range Interpretation Comments CK (test code = 7331571416) 71 U/L 33-194 Lab Interpretation (test code = Normal 17236-8) [facility] [facility] METABOLIC PANEL (56983)2021-03-05 11:25:11 Test Item Value Reference Range Interpretation Comments NA (test code = 130 mmol/L 135-145 L 6135628097) K (test code = 3.9 mmol/L 3.5-5.0 4848704628) CL (test code = 93 mmol/L 98-108 L 7304558550) CO2 TOTAL (test code = 24 mmol/L 23-31 5426362006) AGAP (test code = 2-16 8762952862) BUN (test code = 21 mg/dL 7-23 3327010403) GLUCOSE (test code = 599 mg/dL 70-110 HH 9226793009) CREATININE (test code = 0.65 mg/dL 0.60-1.25 9274307675) TOTAL BILI (test code = 0.4 mg/dL 0.1-1.3 9184702483) CALCIUM (test code = 9.7 mg/dL 8.6-10.6 9837628468) T PROTEIN (test code = 6.5 g/dL 6.3-8.2 8979417745) ALBUMIN (test code = 4.2 g/dL 3.5-5.0 4107506731) ALK PHOS (test code = 149 U/L 34-122 H 0979875173) ALTv (test code = 23 U/L 5-50 1742-6) AST(SGOT) (test code = 35 U/L 13-40 8912592455) eGFR (test code = mL/min/1.73m2 2264158982) ANTONIO (test code = ANTONIO) Association of Glomerular Filtration Rate (GFR) and Staging of Kidney Disease* + --+ --+ ------+| GFR (mL/min/1.73 m2) ?| With Kidney Damage ?| ?Without Kidney Damage+ --------+ --------+ +| ?>90 ?| ?Stage one ?| ? Normal ?+ ---+ ---+ -------+| ?60-89 ?| ?Stage two ?| ? Decreased GFR ? + --+ --+ ------+| ?30-59 ?| ?Stage three ?| ? Stage three ? + --+ --+ ------+| ?15-29 ?| ?Stage four ? | ? Stage four ?+ ---+ ---+ -------+| ?<15 (or dialysis) ? ?| ?Stage five ? | ? Stage five ?+ ---+ ---+ -------+ *Each stage assumes the associated GFR level has been in effect for at least three months. ?Stages 1 to 5, with or without kidney disease, indicate chronic kidney disease. Notes: Determination of stages one and two (with eGFR >59mL/min/1.73 m2) requires estimation of kidney damage for at least three months as defined by structural or functional abnormalities of the kidney, manifested by either:Pathological abnormalities or Markers of kidney damage (including abnormalities in the composition of the blood or urine or abnormalities in imaging tests). Lab Interpretation Abnormal (test code = 25585-1) [id number] 11:20:57 Test Item Value Reference Range Interpretation Comments NT-proBNP (test code 331 pg/mL See_Comment H [Autom ated = 0324933983) message] The system which generated this result transmitted reference range : <=125. The reference range was not used to interpret this result as normal/abnormal . ANTONIO (test code = ANTONIO) Biotin has been reported to cause a negative bias, interpret results relative to patient's use of biotin. Lab Interpretation Abnormal (test code = 11791-8) [facility]8)(TOTAL CHOLESTEROL, TRIGLYCERIDES, HDL)2021-03-05 11:14:56 Test Item Value Reference Range Interpretation Comments CHOL (test code = 165 mg/dL 120-200 0842527115) HDL (test code = 43 mg/dL >40 9767550003) HDLC RATIO (test code = See_Comment [Au tomated message] 7549012783) The system Revegy generated this result transmit anjelica reference range : <=5.0. The refe rence range was not u sed to interpret th is result as normal/abnormal . TRIG (test code = 333 mg/dL 30-170 H 2184157990) LDL CHOL (test code = 55 mg/dL See_Comment [Auto mated message] 32645-5) The system Reve[employer] generated this result transmit anjelica reference range : <=160. The refe rence range was not u sed to interpret th is result as normal/abnormal . VLDL (test code = 67 mg/dL 5-60 H 8741204612) Lab Interpretation (test Abnormal code = 34665-8) [facility] 11:14:56 Test Item Value Reference Range Interpretation Comments MAGNESIUM (test code = 3727530547) 1.6 mg/dL 1.7-2.4 L Lab Interpretation (test code = Abnormal 25025-0) [facility] [id number] 10:39:11 Test Item Value Reference Range Interpretation Comments TROPONIN I (test <0.012 See_Comment [Automated code = 9365641267) message] The system which generated this result transmitted reference range : <=0.034 ng/mL. The reference range was not used to interpr et this result as normal/abnormal . ANTONIO (test code = Equal or Less than ANTONIO) 0.034 ng/ml---Normal ?Note: Cardiac troponin begins to rise 3-4 hours after the onset of ischemia. Repeat in 4-6 hours if the sample was drawn within 3-4 hours of the onset of the symptom and found normal. Between 0.035 and 0.120 ng/mL--- Borderline. Questionable myocardial injury or necrosis ? ?Note: Serial measurement may be necessary to confirm or exclude the diagnosis of myocardial injury or necrosis; Clinical correlation (symptoms, EKGs, imaging studies, and others) required; Repeat in 4-6 hours if clinically indicated. ? Equal or Higher than 0.121 ng/mL---Abnormal. Myocardial Injury or Necrosis Likely ? Biotin has been reported to cause a negative bias, interpret results relative to patient's use of biotin. ? Lab Interpretation Normal (test code = 57602-1) [facility] WITH [id number] 10:38:16 Test Item Value Reference Range Interpretation Comments WBC (test code = See_Comment [Automated 0890-2) message] The sy stem which generated this result transmitted reference range : 4.20 - 10.70 10*3/?L. The reference range was not used to interpret this result as normal/abnormal . RBC (test code = See_Comment [Automated 789-8) message] The sy stem which generated this result transmitted reference range : 4.26 - 5.52 10*6/?L. The reference range was not used to interpret this result as normal/abnormal . HGB (test code = 14.8 g/dL 12.2-16.4 718-7) HCT (test code = 44.7 % 38.4-49.3 4544-3) MCV (test code = 82.9 fL 81.7-95.6 787-2) MCH (test code = 27.5 pg 26.1-32.7 785-6) MCHC (test code = 33.1 g/dL 31.2-35.0 786-4) RDW-SD (test code = 37.6 fL 38.5-51.6 L 33144-2) RDW-CV (test code = 12.5 % 12.1-15.4 788-0) PLT (test code = See_Comment [Automated 777-3) message] The sy stem which generated this result transmitted reference range : 150 - 328 10*3/ ?L. The reference r david was not used to interpret this result as normal/abnormal . MPV (test code = 10.8 fL 9.8-13.0 60015-8) NRBC/100 WBC (test See_Comment [Automat ed code = 6184706968) message] The system which generated this result transmitted reference range : 0.0 - 10.0 /100 WBCs. The refer ence range was not u sed to interpret th is result as normal/abnormal . NRBC x10^3 (test code <0.01 See_Comment [Auto mated = 0448225979) message] The s ystem which generated this result transmitted reference range : 10*3/?L. The reference range was not used to interpret this result as normal/abnormal . GRAN MAT (NEUT) % 63.3 % (test code = 770-8) IMM GRAN % (test code 0.30 % = 2131426828) LYMPH % (test code = 27.7 % 736-9) MONO % (test code = 8.4 % 5905-5) EOS % (test code = 0.0 % 713-8) BASO % (test code = 0.3 % 706-2) GRAN MAT x10^3(ANC) 4.54 10*3/uL 1.99-6.95 (test code = 9893104743) IMM GRAN x10^3 (test <0.03 0.00-0.06 code = 9460052048) LYMPH x10^3 (test code 1.98 10*3/uL 1.09-3.23 = 731-0) MONO x10^3 (test code 0.60 10*3/uL 0.36-1.02 = 742-7) EOS x10^3 (test code = <0.03 0.06-0.53 L 711-2) BASO x10^3 (test code <0.03 0.01-0.09 = 704-7) Lab Interpretation Abnormal (test code = 93867-8) [facility] GLUCOSE (AUTOMATED)2021-03-05 04:47:31 Test Item Value Reference Range Interpretation Comments POCT GLU (test code = 4635997617) 485 mg/dL 70-110 HH Lab Interpretation (test code = Abnormal 86437-1) [facility] GLUCOSE (AUTOMATED)2021-03-05 01:43:03 Test Item Value Reference Range Interpretation Comments POCT GLU (test code = 3956522770) 448 mg/dL 70-110 H Lab Interpretation (test code = Abnormal 86869-0) [facility] GLUCOSE (AUTOMATED)2021-03-04 22:27:16 Test Item Value Reference Range Interpretation Comments POCT GLU (test code = 7322427403) 362 mg/dL 70-110 H Lab Interpretation (test code = Abnormal 34493-6) [facility] GLUCOSE (AUTOMATED)2021-03-04 21:57:47 Test Item Value Reference Range Interpretation Comments POCT GLU (test code = 5550975270) 363 mg/dL 70-110 H Lab Interpretation (test code = Abnormal 16238-3) [facility]GLOB[facility] (A1C)2021-03-04 18:16:06 Test Item Value Reference Range Interpretation Comments HGB A1C (test code = 12.2 % 4.0-5.7 H 4548-4) ANTONIO (test code = ANTONIO) Reference RangesNormal: <5.7%Prediabetes: 5.7 - 6.4%Diabetes: > 6.5% Lab Interpretation (test Abnormal code = 84059-1) [facility] GLUCOSE (AUTOMATED)2021-03-04 17:23:33 Test Item Value Reference Range Interpretation Comments POCT GLU (test code = 9565159450) 443 mg/dL 70-110 H Lab Interpretation (test code = Abnormal 81694-7) [facility] GLUCOSE (AUTOMATED)2021-03-04 17:06:51 Test Item Value Reference Range Interpretation Comments POCT GLU (test code = 8023252547) 478 mg/dL 70-110 HH Lab Interpretation (test code = Abnormal 35829-0) [facility] WITH [id number] 15:32:17 Test Item Value Reference Range Interpretation Comments WBC (test code = See_Comment [Automated 6690-2) message] The sy stem which generated this result transmitted reference range : 4.20 - 10.70 10*3/?L. The reference range was not used to interpret this result as normal/abnormal . RBC (test code = See_Comment H [Automated 319-8) message] The sy stem which generated this result transmitted reference range : 4.26 - 5.52 10*6/?L. The reference range was not used to interpret this result as normal/abnormal . HGB (test code = 15.3 g/dL 12.2-16.4 718-7) HCT (test code = 45.6 % 38.4-49.3 4544-3) MCV (test code = 81.9 fL 81.7-95.6 787-2) MCH (test code = 27.5 pg 26.1-32.7 785-6) MCHC (test code = 33.6 g/dL 31.2-35.0 786-4) RDW-SD (test code = 36.6 fL 38.5-51.6 L 82635-1) RDW-CV (test code = 12.1 % 12.1-15.4 788-0) PLT (test code = See_Comment [Automated 777-3) message] The sy stem which generated this result transmitted reference range : 150 - 328 10*3/ ?L. The reference r david was not used to interpret this result as normal/abnormal . MPV (test code = 10.2 fL 9.8-13.0 07807-2) NRBC/100 WBC (test See_Comment [Automat ed code = 5491395993) message] The system which generated this result transmitted reference range : 0.0 - 10.0 /100 WBCs. The refer ence range was not u sed to interpret th is result as normal/abnormal . NRBC x10^3 (test code <0.01 See_Comment [Auto mated = 4416396863) message] The s ystem which generated this result transmitted reference range : 10*3/?L. The reference range was not used to interpret this result as normal/abnormal . GRAN MAT (NEUT) % 37.1 % (test code = 770-8) IMM GRAN % (test code 0.40 % = 6772278373) LYMPH % (test code = 50.8 % 736-9) MONO % (test code = 7.7 % 5905-5) EOS % (test code = 2.8 % 713-8) BASO % (test code = 1.2 % 706-2) GRAN MAT x10^3(ANC) 1.83 10*3/uL 1.99-6.95 L (test code = 9767321701) IMM GRAN x10^3 (test <0.03 0.00-0.06 code = 9534134603) LYMPH x10^3 (test code 2.51 10*3/uL 1.09-3.23 = 731-0) MONO x10^3 (test code 0.38 10*3/uL 0.36-1.02 = 742-7) EOS x10^3 (test code = 0.14 10*3/uL 0.06-0.53 711-2) BASO x10^3 (test code 0.06 10*3/uL 0.01-0.09 = 704-7) Lab Interpretation Abnormal (test code = 01541-9) [facility] 1 [id number] 15:20:55HISTORY: Shortness of breath. TECHNIQUE: Portable AP erect view of the chest is obtained. Comparisonmadewith 01/30/2016 study. FINDINGS: No acute pneumonia. No pneumothorax or pleural effusion orpulmonary congestion detected. Cardiac size is within normal limits. CONCLUSIONS: No signs of acute cardiopulmonary disease.[facility], Radiant Results Inft User - 03/04/2021 10:22 AM CDTHISTORY: Shortness of breath.TECHNIQUE: Portable AP erect view of the chest is obtained. Comparison madewith 01/30/2016 study.FINDINGS: No acute pneumonia. No pneumothorax or pleural effusion orpulmonary congestion detected. Cardiac size is within normal limits. CONCLUSIONS: No signs of acute cardiopulmonary disease. [facility]IS[facility] 15:03:29 Test Item Value Reference Range Interpretation Comments APPEARANCE (test code = Clear Clear 1195772078) COLOR (test code = Straw Yellow A 3630903307) PH (test code = 4.8-8.0 4293219415) SP GRAVITY (test code = 1.003-1.030 3495954737) GLU U QUAL (test code = 500 mg/dL Normal A 5424367573) BLOOD (test code = Negative Negative 8065054722) KETONES (test code = 5 mg/dL Negative A 0421273647) PROTEIN (test code = Negative Negative 2887-8) UROBILIN (test code = Normal Normal 7724839099) BILIRUBIN (test code = Negative Negative 2254216698) NITRITE (test code = Negative Negative 3587802868) LEUK JERALD (test code = Negative Negative 2270830831) RBC/HPF (test code = <1 See_Comment [Autom ated message] 4319872322) The system Reve[employer] generated this result transmit anjelica reference range : 0 - 3 HPF. The refe rence range was not u sed to interpret th is result as normal/abnormal . WBC/HPF (test code = <1 See_Comment [Autom ated message] 6010023280) The system Reve[employer] generated this result transmit anjelica reference range : 0 - 5 HPF. The refe rence range was not u sed to interpret th is result as normal/abnormal . BACTERIA (test code = Few Negative A 6891736558) Lab Interpretation (test Abnormal code = 83439-4) [facility] ([facility] NOW RAPID TESTING)2021-03-04 14:58:08 Test Item Value Reference Range Interpretation Comments SARS-CoV-2 Rapid ID NOW Not Detected Not Detected (test code = 91766-8) ANTONIO (test code = ANTONIO) ID NOW COVID-19 Assay is an isothermal nucleic acid amplification test intended for the qualitative detection of nucleic acid from SARS-CoV-2 viral RNA in nasopharyngeal ([employer]) specimens. It is used under Emergency Use Authorization (EUA) by FDA. The limit of detection (LOD) of the assay is 125 Genome Equivalents/mL. A positive result is indicative of the presence of SARS-CoV-2 RNA. ?Clinical correlation with patient history and other diagnostic information is necessary to determine patient infection status. A negative (Not Detected) result does not preclude SARS-CoV-2 infection. In patients with clinical symptoms and other tests that are consistent with SARS-CoV-2 infection, negative results should be treated as presumptive negative and a new specimen should be tested with alternative PCR molecular test. Invalid: Please collect a new specimen for repeat patient testing if clinically indicated. Lab Interpretation Normal (test code = 96581-3) [facility]TR[facility] [id number] 14:56:27 Test Item Value Reference Range Interpretation Comments TROPONIN I (test <0.012 See_Comment [Automated code = 1163308180) message] The system which generated this result transmitted reference range : <=0.034 ng/mL. The reference range was not used to interpr et this result as normal/abnormal . ANTONIO (test code = Equal or Less than ANTONIO) 0.034 ng/ml---Normal ?Note: Cardiac troponin begins to rise 3-4 hours after the onset of ischemia. Repeat in 4-6 hours if the sample was drawn within 3-4 hours of the onset of the symptom and found normal. Between 0.035 and 0.120 ng/mL--- Borderline. Questionable myocardial injury or necrosis ? ?Note: Serial measurement may be necessary to confirm or exclude the diagnosis of myocardial injury or necrosis; Clinical correlation (symptoms, EKGs, imaging studies, and others) required; Repeat in 4-6 hours if clinically indicated. ? Equal or Higher than 0.121 ng/mL---Abnormal. Myocardial Injury or Necrosis Likely ? Biotin has been reported to cause a negative bias, interpret results relative to patient's use of biotin. ? Lab Interpretation Normal (test code = 58238-6) [facility]. METABOLIC PANEL (96812)2021-03-04 14:55:06 Test Item Value Reference Range Interpretation Comments NA (test code = 133 mmol/L 135-145 L 2424771682) K (test code = 3.9 mmol/L 3.5-5.0 3679966807) CL (test code = 97 mmol/L 98-108 L 0057018037) CO2 TOTAL (test code = 27 mmol/L 23-31 0698177695) AGAP (test code = 2-16 3493783361) BUN (test code = 14 mg/dL 7-23 9449398969) GLUCOSE (test code = 473 mg/dL 70-110 HH 2078065917) CREATININE (test code = 0.55 mg/dL 0.60-1.25 L 4483873040) TOTAL BILI (test code = 0.6 mg/dL 0.1-1.0 9113206981) CALCIUM (test code = 9.2 mg/dL 8.6-10.6 2216687629) T PROTEIN (test code = 6.2 g/dL 6.3-8.2 L 6694799508) ALBUMIN (test code = 3.9 g/dL 3.5-5.0 1693638014) ALK PHOS (test code = 128 U/L 34-122 H 9365651309) ALTv (test code = 21 U/L 5-50 1742-6) AST(SGOT) (test code = 24 U/L 13-40 6380438681) eGFR (test code = mL/min/1.73m2 1159462899) ANTONIO (test code = ANTONIO) Association of Glomerular Filtration Rate (GFR) and Staging of Kidney Disease* + --+ --+ ------+| GFR (mL/min/1.73 m2) ?| With Kidney Damage ?| ?Without Kidney Damage+ --------+ --------+ +| ?>90 ?| ?Stage one ?| ? Normal ?+ ---+ ---+ -------+| ?60-89 ?| ?Stage two ?| ? Decreased GFR ? + --+ --+ ------+| ?30-59 ?| ?Stage three ?| ? Stage three ? + --+ --+ ------+| ?15-29 ?| ?Stage four ? | ? Stage four ?+ ---+ ---+ -------+| ?<15 (or dialysis) ? ?| ?Stage five ? | ? Stage five ?+ ---+ ---+ -------+ *Each stage assumes the associated GFR level has been in effect for at least three months. ?Stages 1 to 5, with or without kidney disease, indicate chronic kidney disease. Notes: Determination of stages one and two (with eGFR >59mL/min/1.73 m2) requires estimation of kidney damage for at least three months as defined by structural or functional abnormalities of the kidney, manifested by either:Pathological abnormalities or Markers of kidney damage (including abnormalities in the composition of the blood or urine or abnormalities in imaging tests). Lab Interpretation Abnormal (test code = 80343-0) [facility] [id number] 14:53:09 Test Item Value Reference Range Interpretation Comments NT-proBNP (test code 102 pg/mL See_Comment [Autom ated = 1326609634) message] The system which generated this result transmitted reference range : <=125. The reference range was not used to interpret this result as normal/abnormal . ANTONIO (test code = ANTONIO) Biotin has been reported to cause a negative bias, interpret results relative to patient's use of biotin. Lab Interpretation Normal (test code = 82816-7) [facility] CenterSA[facility] ([facility]TIGEN) [id number] 11:39:00 Test Item Value Reference Range Interpretation Comments SARS-CoV (ANTIGEN) NEGATIVE NEGATIVE (test code = COVAG) COVID AG (test This test has been code = COVAGC) marketed under the FDA Emergency Use Authorization (EUA) to meet challenges of the COVID-19 pandemic. The validation standards normally enforced by the FDA and the [employer] (CAP) are more stringent than those [...] 36 pg/mL <=100 GENERAL CHEMISTRY 13 *OW* [id number] 11:14:00 Test Item Value Reference Range Interpretation [...] 9.6 % 0.0-10.0 GLUCOMETER GLUCOSE- LAB USE [id number] 10:12:00 Test Item Value Reference Range Interpretation Comments GLUCOMETER (test code = GMG) 240 mg/dL 70-100 H MetyLyte 8 Panel *OW* [id number] 10:51:00 Test Item Value Reference Range Interpretation [...] 22 mmol/L 18-33 M[employer]te 8 Panel *OW* [id number] 05:46:00 Test Item Value Reference Range Interpretation [...] 20 mmol/L 18-33 GLUCOMETER GLUCOSE- LAB USE [id number] 05:11:00 Test Item Value Reference Range Interpretation Comments GLUCOMETER (test code 239 mg/dL 70-100 H CLEANE D METERMeter ID: = GMG) [id number] tor: 9186 TATUM PE NA GLUCOMETER GLUCOSE- LAB USE [id number] 05:11:00 Test Item Value Reference Range Interpretation Comments GLUCOMETER (test code 137 mg/dL 70-100 H CLEANE D METERMeter ID: = GMG) [id number] tor: 9186 TATUM PE NA GLUCOMETER GLUCOSE- LAB USE [id number] 05:07:00 Test Item Value Reference Range Interpretation Comments GLUCOMETER (test code 178 mg/dL 70-100 H CLEANE D METERMeter ID: = GMG) [id number] tor: 9186 TATUM PE NA CBC (INCLUDES [...] 7.5 % 0.0-10.0 GLUCOMETER GLUCOSE- LAB USE [id number] 01:38:00 Test Item Value Reference Range Interpretation Comments GLUCOMETER (test code 227 mg/dL 70-100 H CLEANE D METERMeter ID: = GMG) [id number] tor: 9186 TATUM PE NA [employer] 8 Panel *OW* [id number] 23:53:00 Test Item Value Reference Range Interpretation [...] 7.6 % 0.0-10.0 GLUCOMETER GLUCOSE- LAB USE [id number] 22:48:00 Test Item Value Reference Range Interpretation Comments GLUCOMETER (test code 166 mg/dL 70-100 H CLEANE D METERMeter ID: = GMG) [id number] tor: 9186 TATUM PE NA GLUCOMETER GLUCOSE- LAB USE [id number] 21:24:00 Test Item Value Reference Range Interpretation Comments GLUCOMETER (test code 273 mg/dL 70-100 H CLEANE D METERMeter ID: = GMG) [id number] tor: 9186 TATUM PE NA GLUCOMETER GLUCOSE- LAB USE [id number] 20:33:00 Test Item Value Reference Range Interpretation Comments GLUCOMETER (test code 257 mg/dL 70-100 H CLEANE D METERMeter ID: = GMG) [id number] tor: 9186 TATUM PE NA GLUCOMETER GLUCOSE- LAB USE [id number] 19:08:00 Test Item Value Reference Range Interpretation Comments GLUCOMETER (test code = 337 mg/dL 70-100 H Mete r ID: GMG) [id number] tor: 9186 TATUM PE NA URINALYSIS W/O [...] the FDA and the [employer] (CAP) are more stringent than those [...] <5 pg/mL <=100 GENERAL CHEMISTRY 13 *OW* [id number] 17:40:00 Test Item Value Reference Range Interpretation [...] <235 ng/mL D-DU* [employer]te 8 Panel *OW* [id number] 17:31:00 Test Item Value Reference Range Interpretation [...] 1.0 INR) INRH (test code = SUGGESTED THERAPEUTIC INRH) RANGE FOR INR: 2.5 - 3.5 For [...] the FDA and the [employer] (CAP) are more stringent than those [...] <235 ng/mL D-DU* [employer] 8 Panel *OW* [id number] 14:56:00 Test Item Value Reference Range Interpretation [...] 20 pg/mL <=100 GENERAL CHEMISTRY 13 *OW* [id number] 14:43:00 Test Item Value Reference Range Interpretation [...] 1.2 INR) INRH (test code = SUGGESTED THERAPEUTIC INRH) RANGE FOR INR: 2.5 - 3.5 For [...] code = GMID%) 9.6 % 0.0-10.0 CHEM [id number] 15:32:00 Test Item Value Reference Range Interpretation Comments Glucose Lvl (test code = Glucose Lvl) 293 70-99 [facility]2020-09-23 15:32:00 Test Item Value Reference Range Interpretation Comments BUN (test code = BUN) 13 7-22 [facility]2020-09-23 15:32:00 Test Item Value Reference Range Interpretation Comments Creatinine Lvl (test code = Creatinine 0.81 0.50-1.40 Lvl) [place] [id number] 15:32:00 Test Item Value Reference Range Interpretation Comments Sodium Lvl (test code = Sodium Lvl) 138 135-145 [facility]2020-09-23 15:32:00 Test Item Value Reference Range Interpretation Comments Potassium Lvl (test code = Potassium 4.0 3.5-5.1 Lvl) [facility]2020-09-23 15:32:00 Test Item Value Reference Range Interpretation Comments Chloride Lvl (test code = Chloride Lvl) 106 95-109 [facility]2020-09-23 15:32:00 Test Item Value Reference Range Interpretation Comments CO2 (test code = CO2) 27 24-32 [facility]2020-09-23 15:32:00 Test Item Value Reference Range Interpretation Comments Calcium Lvl (test code = Calcium Lvl) 9.5 8.5-10.5 [facility]2020-09-23 15:32:00 Test Item Value Reference Range Interpretation Comments Total Protein (test code = Total 7.3 6.4-8.4 Protein) [facility]2020-09-23 15:32:00 Test Item Value Reference Range Interpretation Comments Albumin Lvl (test code = Albumin Lvl) 3.6 3.5-5.0 [facility]2020-09-23 15:32:00 Test Item Value Reference Range Interpretation Comments ALT (test code = ALT) 33 See_Comment [Auto mated message] The system which ge nerated this result transmit anjelica reference range : <=65. The reference range was not used to interpr et this result as randa l/abnormal. [facility]2020-09-23 15:32:00 Test Item Value Reference Range Interpretation Comments AST (test code = AST) 18 See_Comment [Auto mated message] The system which ge nerated this result transmit anjelica reference range : <=37. The reference range was not used to interpr et this result as randa l/abnormal. [facility] [id number] 15:32:00 Test Item Value Reference Range Interpretation Comments Alk Phos (test code = Alk Phos) 118 39-136 [facility] [id number] 15:32:00 Test Item Value Reference Range Interpretation Comments Bili Total (test code = Bili Total) 0.2 0.2-1.3 [facility] [id number] 15:32:00 Test Item Value Reference Range Interpretation Comments AGAP (test code = AGAP) 9.0 10.0-20.0 [facility] [id number] 15:32:00 Test Item Value Reference Range Interpretation Comments B/C Ratio (test code = B/C Ratio) 16 1 6-[address] [facility] [id number] 15:32:00 Test Item Value Reference Range Interpretation Comments Globulin (test code = Globulin) 3.7 2.7-4.2 [facility] [id number] 15:32:00 Test Item Value Reference Range Interpretation Comments A/G Ratio (test code = A/G Ratio) 1.0 1 0.7-1.[address] [facility] [id number] 15:32:00 Test Item Value Reference Range Interpretation Comments eGFR (test code = eGFR) 101 [facility] [id number] 15:32:00 Test Item Value Reference Range Interpretation Comments Glucose Lvl (test code = Glucose Lvl) 293 70-99 [facility] [id number] 15:32:00 Test Item Value Reference Range Interpretation Comments BUN (test code = BUN) 13 7-22 [facility] [id number] 15:32:00 Test Item Value Reference Range Interpretation Comments Creatinine Lvl (test code = Creatinine 0.81 0.50-1.40 Lvl) [facility]2020-09-23 15:32:00 Test Item Value Reference Range Interpretation Comments Sodium Lvl (test code = Sodium Lvl) 138 135-145 [facility]ann[id number] 15:32:00 Test Item Value Reference Range Interpretation Comments Potassium Lvl (test code = Potassium 4.0 3.5-5.1 Lvl) [facility] HospitalDangDang.comAPR[place] [id number] 15:32:00 Test Item Value Reference Range Interpretation Comments Chloride Lvl (test code = Chloride Lvl) 106 95-109 [facility] [id number] 15:32:00 Test Item Value Reference Range Interpretation Comments CO2 (test code = CO2) 27 24-32 [facility] [id number] 15:32:00 Test Item Value Reference Range Interpretation Comments Calcium Lvl (test code = Calcium Lvl) 9.5 8.5-10.5 [facility] [employer] [id number] 15:32:00 Test Item Value Reference Range Interpretation Comments Total Protein (test code = Total 7.3 6.4-8.4 Protein) [facility] [id number] 15:32:00 Test Item Value Reference Range Interpretation Comments Albumin Lvl (test code = Albumin Lvl) 3.6 3.5-5.0 [facility] [id number] 15:32:00 Test Item Value Reference Range Interpretation Comments ALT (test code = ALT) 33 See_Comment [Auto mated message] The system which ge nerated this result transmit anjelica reference range : <=65. The reference range was not used to interpr et this result as randa l/abnormal. [facility] [id number] 15:32:00 Test Item Value Reference Range Interpretation Comments AST (test code = AST) 18 See_Comment [Auto mated message] The system which ge nerated this result transmit anjelica reference range : <=37. The reference range was not used to interpr et this result as randa l/abnormal. [facility] [employer] [id number] 15:32:00 Test Item Value Reference Range Interpretation Comments Alk Phos (test code = Alk Phos) 118 39-136 [facility] [id number] 15:32:00 Test Item Value Reference Range Interpretation Comments Bili Total (test code = Bili Total) 0.2 0.2-1.3 [facility] [id number] 15:32:00 Test Item Value Reference Range Interpretation Comments AGAP (test code = AGAP) 9.0 10.0-20.0 [facility]2020-09-23 15:32:00 Test Item Value Reference Range Interpretation Comments B/C Ratio (test code = B/C Ratio) 16 1 6-25 [place] 566080-09-23 15:32:00 Test Item Value Reference Range Interpretation Comments Globulin (test code = Globulin) 3.7 2.7-4.2 [facility]2020-09-23 15:32:00 Test Item Value Reference Range Interpretation Comments A/G Ratio (test code = A/G Ratio) 1.0 1 0.7-1.6 [place] 566080-09-23 15:32:00 Test Item Value Reference Range Interpretation Comments eGFR (test code = eGFR) 101 [facility]2020-09-23 15:32:00 Test Item Value Reference Range Interpretation Comments Glucose Lvl (test code = Glucose Lvl) 293 70-99 [facility]2020-09-23 15:32:00 Test Item Value Reference Range Interpretation Comments BUN (test code = BUN) 13 7-22 [facility]2020-09-23 15:32:00 Test Item Value Reference Range Interpretation Comments Creatinine Lvl (test code = Creatinine 0.81 0.50-1.40 Lvl) [facility]2020-09-23 15:32:00 Test Item Value Reference Range Interpretation Comments Sodium Lvl (test code = Sodium Lvl) 138 135-145 [facility]2020-09-23 15:32:00 Test Item Value Reference Range Interpretation Comments Potassium Lvl (test code = Potassium 4.0 3.5-5.1 Lvl) [facility]2020-09-23 15:32:00 Test Item Value Reference Range Interpretation Comments Chloride Lvl (test code = Chloride Lvl) 106 95-109 [facility]2020-09-23 15:32:00 Test Item Value Reference Range Interpretation Comments CO2 (test code = CO2) 27 24-32 [place] 566080-09-23 15:32:00 Test Item Value Reference Range Interpretation Comments Calcium Lvl (test code = Calcium Lvl) 9.5 8.5-10.5 [place] 566080-09-23 15:32:00 Test Item Value Reference Range Interpretation Comments Total Protein (test code = Total 7.3 6.4-8.4 Protein) [facility] [employer] [id number] 15:32:00 Test Item Value Reference Range Interpretation Comments Albumin Lvl (test code = Albumin Lvl) 3.6 3.5-5.0 [facility] [id number] 15:32:00 Test Item Value Reference Range Interpretation Comments ALT (test code = ALT) 33 See_Comment [Auto mated message] The system which ge nerated this result transmit anjelica reference range : <=65. The reference range was not used to interpr et this result as randa l/abnormal. [facility] [employer] [id number] 15:32:00 Test Item Value Reference Range Interpretation Comments AST (test code = AST) 18 See_Comment [Auto mated message] The system which ge nerated this result transmit anjelica reference range : <=37. The reference range was not used to interpr et this result as randa l/abnormal. [facility] [employer] [id number] 15:32:00 Test Item Value Reference Range Interpretation Comments Alk Phos (test code = Alk Phos) 118 39-136 [facility] [employer] [id number] 15:32:00 Test Item Value Reference Range Interpretation Comments Bili Total (test code = Bili Total) 0.2 0.2-1.3 [facility] [id number] 15:32:00 Test Item Value Reference Range Interpretation Comments AGAP (test code = AGAP) 9.0 10.0-20.0 [facility] [employer] [id number] 15:32:00 Test Item Value Reference Range Interpretation Comments B/C Ratio (test code = B/C Ratio) 16 1 6-25 [facility] [employer] [id number] 15:32:00 Test Item Value Reference Range Interpretation Comments Globulin (test code = Globulin) 3.7 2.7-4.2 [facility] [employer] [id number] 15:32:00 Test Item Value Reference Range Interpretation Comments A/G Ratio (test code = A/G Ratio) 1.0 1 0.7-1.6 [facility] [employer] [id number] 15:32:00 Test Item Value Reference Range Interpretation Comments eGFR (test code = eGFR) 101 [place] 566080-09-23 15:32:00 Test Item Value Reference Range Interpretation Comments Glucose Lvl (test code = Glucose Lvl) 293 70-99 [place] 566080-09-23 15:32:00 Test Item Value Reference Range Interpretation Comments BUN (test code = BUN) 13 7-22 [place] 566080-09-23 15:32:00 Test Item Value Reference Range Interpretation Comments Creatinine Lvl (test code = Creatinine 0.81 0.50-1.40 Lvl) [place] 566080-09-23 15:32:00 Test Item Value Reference Range Interpretation Comments Sodium Lvl (test code = Sodium Lvl) 138 135-145 [place] 566080-09-23 15:32:00 Test Item Value Reference Range Interpretation Comments Potassium Lvl (test code = Potassium 4.0 3.5-5.1 Lvl) [place] 566080-09-23 15:32:00 Test Item Value Reference Range Interpretation Comments Chloride Lvl (test code = Chloride Lvl) 106 95-109 [place] 566080-09-23 15:32:00 Test Item Value Reference Range Interpretation Comments CO2 (test code = CO2) 27 24-32 [place] 566080-09-23 15:32:00 Test Item Value Reference Range Interpretation Comments Calcium Lvl (test code = Calcium Lvl) 9.5 8.5-10.5 [place] 566080-09-23 15:32:00 Test Item Value Reference Range Interpretation Comments Total Protein (test code = Total 7.3 6.4-8.4 Protein) [facility]2020-09-23 15:32:00 Test Item Value Reference Range Interpretation Comments Albumin Lvl (test code = Albumin Lvl) 3.6 3.5-5.0 [place] 566080-09-23 15:32:00 Test Item Value Reference Range Interpretation Comments ALT (test code = ALT) 33 See_Comment [Auto mated message] The system which ge nerated this result transmit anjelica reference range : <=65. The reference range was not used to interpr et this result as randa l/abnormal. [place] 566080-09-23 15:32:00 Test Item Value Reference Range Interpretation Comments AST (test code = AST) 18 See_Comment [Auto mated message] The system which ge nerated this result transmit anjelica reference range : <=37. The reference range was not used to interpr et this result as randa l/abnormal. [facility] [id number] 15:32:00 Test Item Value Reference Range Interpretation Comments Alk Phos (test code = Alk Phos) 118 39-[address] [facility] [id number] 15:32:00 Test Item Value Reference Range Interpretation Comments Bili Total (test code = Bili Total) 0.2 0.2-1.3 [facility]2020-09-23 15:32:00 Test Item Value Reference Range Interpretation Comments AGAP (test code = AGAP) 9.0 10.0-20.0 [facility]2020-09-23 15:32:00 Test Item Value Reference Range Interpretation Comments B/C Ratio (test code = B/C Ratio) 16 1 6-25 [facility]2020-09-23 15:32:00 Test Item Value Reference Range Interpretation Comments Globulin (test code = Globulin) 3.7 2.7-4.[address] [facility] [id number] 15:32:00 Test Item Value Reference Range Interpretation Comments A/G Ratio (test code = A/G Ratio) 1.0 1 0.7-1.6 [place] 566080-09-23 15:32:00 Test Item Value Reference Range Interpretation Comments eGFR (test code = eGFR) 101 [id number] 16:27:00 Test Item Value Reference Range Interpretation Comments Coronavirus (COVID-19) Not Detected CYRUS (test code = *NA*(07/07/20 11:27 Coronavirus (COVID-19) AM) CYRUS) [facility] [id number] 16:27:00 Test Item Value Reference Range Interpretation Comments Coronavirus (COVID-19) Not Detected CYRUS (test code = *NA*(07/07/20 11:27 Coronavirus (COVID-19) AM) CYRUS) [facility] [id number] 16:27:00 Test Item Value Reference Range Interpretation Comments Coronavirus (COVID-19) Not Detected CYRUS (test code = *NA*(07/07/20 11:27 Coronavirus (COVID-19) AM) CYRUS) [facility] [id number] 16:27:00 Test Item Value Reference Range Interpretation Comments Coronavirus (COVID-19) Not Detected CYRUS (test code = *NA*(07/07/20 11:27 Coronavirus (COVID-19) AM) CYRUS) [facility] [id number] 13:34:00 Test Item Value Reference Range Interpretation Comments Coronavirus (COVID-19) Detected CYRUS (test code = 1*ABN*(05/30/20 8:34 Coronavirus (COVID-19) AM) CYRUS) [id number] 13:34:00 Test Item Value Reference Range Interpretation Comments Coronavirus (COVID-19) Detected CYRUS (test code = 1*ABN*(05/30/20 8:34 Coronavirus (COVID-19) AM) CYRUS) [facility] [id number] 13:34:00 Test Item Value Reference Range Interpretation Comments Coronavirus (COVID-19) Detected CYRUS (test code = 1*ABN*(05/30/20 8:34 Coronavirus (COVID-19) AM) CYRUS) [facility] [id number] 13:34:00 Test Item Value Reference Range Interpretation Comments Coronavirus (COVID-19) Detected CYRUS (test code = 1*ABN*(05/30/20 8:34 Coronavirus (COVID-19) AM) CYRUS) [id number] 17:51:00 Test Item Value Reference Range Interpretation Comments Hgb (test code = Hgb) 17.1 14.0-18.0 [facility] HospitalXtqdgcdIFRUKYYWCL4465-40-24 17:51:00 Test Item Value Reference Range Interpretation Comments Hct (test code = Hct) 51.8 42.0-54.0 [facility] HospitalDkaifovONOLVUHPJV9689-30-24 17:51:00 Test Item Value Reference Range Interpretation Comments MCV (test code = MCV) 83.1 80.0-94.0 [facility] HospitalDdhduweVKIYAHAOWV0710-65-08 17:51:00 Test Item Value Reference Range Interpretation Comments MCH (test code = MCH) 27.4 pg 27.0-31.0 [place] 226420-06-25 17:51:00 Test Item Value Reference Range Interpretation Comments MCHC (test code = MCHC) 33.0 32.0-36.0 [place] 226420-06-25 17:51:00 Test Item Value Reference Range Interpretation Comments RDW (test code = RDW) 14.2 11.5-14.5 [place] 226420-06-25 17:51:00 Test Item Value Reference Range Interpretation Comments Platelet (test code = Platelet) 267 133-450 [place] 226420-06-25 17:51:00 Test Item Value Reference Range Interpretation Comments MPV (test code = MPV) 8.5 7.4-10.4 [place] 226420-06-25 17:51:00 Test Item Value Reference Range Interpretation Comments Segs (test code = Segs) 48.9 45.0-75.0 [place] 226420-06-25 17:51:00 Test Item Value Reference Range Interpretation Comments Lymphocytes (test code = Lymphocytes) 38.7 20.0-40.0 [place] 226420-06-25 17:51:00 Test Item Value Reference Range Interpretation Comments Monocytes (test code = Monocytes) 8.2 2.0-12.0 [place] 226420-06-25 17:51:00 Test Item Value Reference Range Interpretation Comments Eosinophils (test code = 2.7 See_Comment [A utomated message] The Eosinophils) system which ge nerated this result tra nsmitted reference range : <=4.0. The reference r david was not used to int erpret this result as normal/abnormal . [facility] H[id number] 17:51:00 Test Item Value Reference Range Interpretation Comments Basophils (test code = 1.5 See_Comment [Aut omated message] The Basophils) system which ge nerated this result tra nsmitted reference range : <=1.0. The reference r david was not used to int erpret this result as normal/abnormal . [place] 226420-06-25 17:51:00 Test Item Value Reference Range Interpretation Comments Neutrophils # (test code = Neutrophils 2.9 1.5-8.1 #) [place] 226420-06-25 17:51:00 Test Item Value Reference Range Interpretation Comments Lymphocytes # (test code = Lymphocytes 2.3 1.0-5.5 #) [facility] HospitalDymyyclBIMKFQKEIT8838-62-41 17:51:00 Test Item Value Reference Range Interpretation Comments Monocytes # (test code 0.5 See_Comment [Aut omated message] The = Monocytes #) system which generated this result tra nsmitted reference range : <=0.8. The reference r david was not used to int erpret this result as normal/abnormal . [facility] HospitalZqjyjdkZQEDDFALQM2031-03-51 17:51:00 Test Item Value Reference Range Interpretation Comments Eosinophils # (test code 0.2 See_Comment [A utomated message] The = Eosinophils #) system whic h generated this result tra nsmitted reference range : <=0.5. The reference r david was not used to int erpret this result as normal/abnormal . [facility] HospitalZvrhcolEYHXIRZEOU5561-42-11 17:51:00 Test Item Value Reference Range Interpretation Comments Basophils # (test code 0.1 See_Comment [Aut omated message] The = Basophils #) system which generated this result tra nsmitted reference range : <=0.2. The reference r david was not used to int erpret this result as normal/abnormal . [facility] AND [id number] 17:51:00 Test Item Value Reference Range Interpretation Comments UA Color (test code = Light Yellow UA Color) *NA*(04/10/20 12:51 PM) [facility] AND [id number] 17:51:00 Test Item Value Reference Range Interpretation Comments UA Turbidity (test code = Clear (04/10/20 12:51 UA Turbidity) PM) [facility] AND [id number] 17:51:00 Test Item Value Reference Range Interpretation Comments UA Spec Grav (test code = UA Spec 1.024 1 Grav) [facility] AND [id number] 17:51:00 Test Item Value Reference Range Interpretation Comments UA pH (test code = UA pH) 6.0 1 5.0-8.0 [facility] AND [id number] 17:51:00 Test Item Value Reference Range Interpretation Comments UA Protein (test code Negative (04/10/20 12:51 = UA Protein) PM) [facility] AND [id number] 17:51:00 Test Item Value Reference Range Interpretation Comments UA Glucose (test code = UA Glucose) 500 mg/dL [facility] AND [id number] 17:51:00 Test Item Value Reference Range Interpretation Comments UA Ketones (test code = UA Ketones) 20 mg/dL [facility] AND [id number] 17:51:00 Test Item Value Reference Range Interpretation Comments UA Bili (test code = Negative *NA*(04/10/20 UA Bili) 12:51 PM) [facility] AND [id number] 17:51:00 Test Item Value Reference Range Interpretation Comments UA Blood (test code = Negative (04/10/20 12:51 UA Blood) PM) [facility] AND [id number] 17:51:00 Test Item Value Reference Range Interpretation Comments UA Urobilinogen (test code = UA <=1.0 mg/dL 0.1-1.0 Urobilinogen) [facility] AND [id number] 17:51:00 Test Item Value Reference Range Interpretation Comments UA Nitrite (test code Negative (04/10/20 12:51 = UA Nitrite) PM) [facility] AND [id number] 17:51:00 Test Item Value Reference Range Interpretation Comments UA Leuk Est (test Negative (04/10/20 12:51 code = UA Leuk Est) PM) [facility] AND [id number] 17:51:00 Test Item Value Reference Range Interpretation Comments UA Sq Epi (test code = None Seen (04/10/20 UA Sq Epi) 12:51 PM) [facility] AND [id number] 17:51:00 Test Item Value Reference Range Interpretation Comments UA WBC (test code = 1 See_Comment [Automa anjelica message] The UA WBC) system which ge nerated this result transmit anjelica reference range : <=5. The reference range was not used to interpr et this result as randa l/abnormal. [facility] AND [id number] 17:51:00 Test Item Value Reference Range Interpretation Comments UA RBC (test code = 1 See_Comment [Automa anjelica message] The UA RBC) system which ge nerated this result transmit anjelica reference range : <=2. The reference range was not used to interpr et this result as randa l/abnormal. [facility]2020-06-25 17:51:00 Test Item Value Reference Range Interpretation Comments Glucose Lvl (test code = Glucose Lvl) 375 70-99 [place] 566080-06-25 17:51:00 Test Item Value Reference Range Interpretation Comments BUN (test code = BUN) 19 7-22 [place] 566080-06-25 17:51:00 Test Item Value Reference Range Interpretation Comments Creatinine Lvl (test code = Creatinine 1.04 0.50-1.40 Lvl) [facility]2020-06-25 17:51:00 Test Item Value Reference Range Interpretation Comments Sodium Lvl (test code = Sodium Lvl) 135 135-145 [place] 566080-06-25 17:51:00 Test Item Value Reference Range Interpretation Comments Potassium Lvl (test code = Potassium 4.0 3.5-5.1 Lvl) [place] 566080-06-25 17:51:00 Test Item Value Reference Range Interpretation Comments Chloride Lvl (test code = Chloride Lvl) 96 95-109 [place] 566080-06-25 17:51:00 Test Item Value Reference Range Interpretation Comments CO2 (test code = CO2) 30 24-32 [place] 566080-06-25 17:51:00 Test Item Value Reference Range Interpretation Comments Calcium Lvl (test code = Calcium Lvl) 9.5 8.5-10.5 [place] 566080-06-25 17:51:00 Test Item Value Reference Range Interpretation Comments Total Protein (test code = Total 8.2 6.4-8.4 Protein) [place] 566080-06-25 17:51:00 Test Item Value Reference Range Interpretation Comments Albumin Lvl (test code = Albumin Lvl) 4.0 3.5-5.0 [place] 566080-06-25 17:51:00 Test Item Value Reference Range Interpretation Comments ALT (test code = ALT) 51 See_Comment [Auto mated message] The system which ge nerated this result transmit anjelica reference range : <=65. The reference range was not used to interpr et this result as randa l/abnormal. [facility] [id number] 17:51:00 Test Item Value Reference Range Interpretation Comments AST (test code = AST) 28 See_Comment [Auto mated message] The system which ge nerated this result transmit anjelica reference range : <=37. The reference range was not used to interpr et this result as randa l/abnormal. [facility] [id number] 17:51:00 Test Item Value Reference Range Interpretation Comments Alk Phos (test code = Alk Phos) 134 39-[address] [facility] [id number] 17:51:00 Test Item Value Reference Range Interpretation Comments Bili Total (test code = Bili Total) 0.4 0.2-1.[address] [facility] [id number] 17:51:00 Test Item Value Reference Range Interpretation Comments AGAP (test code = AGAP) 13.0 10.0-20.[address] [facility] [id number] 17:51:00 Test Item Value Reference Range Interpretation Comments B/C Ratio (test code = B/C Ratio) 18 1 6-[address] [facility] [id number] 17:51:00 Test Item Value Reference Range Interpretation Comments Globulin (test code = Globulin) 4.2 2.7-4.[address] [facility] [id number] 17:51:00 Test Item Value Reference Range Interpretation Comments A/G Ratio (test code = A/G Ratio) 1.0 1 0.7-1.[address] [facility] [id number] 17:51:00 Test Item Value Reference Range Interpretation Comments eGFR (test code = eGFR) [address] [facility] [id number] 17:51:00 Test Item Value Reference Range Interpretation Comments Lipase Lvl (test code = Lipase Lvl) 73 73-393 [facility] HospitalPkxxurkRAXLIEYRVB2015-11-50 17:51:00 Test Item Value Reference Range Interpretation Comments WBC (test code = WBC) 5.9 3.7-10.4 [facility] HospitalVaczvvsIRZZKXLTSY7590-15-71 17:51:00 Test Item Value Reference Range Interpretation Comments RBC (test code = RBC) 6.23 4.70-6.[address] [facility] C[id number] 17:51:00 Test Item Value Reference Range Interpretation Comments Hgb (test code = Hgb) 17.1 14.0-18.0 [facility] Hos[id number] 17:51:00 Test Item Value Reference Range Interpretation Comments Hct (test code = Hct) 51.8 42.0-54.0 [id number] 17:51:00 Test Item Value Reference Range Interpretation Comments MCV (test code = MCV) 83.1 80.0-94.0 [facility] HospitalTnrbxlxGNRIUFUSDB0742-21-79 17:51:00 Test Item Value Reference Range Interpretation Comments MCH (test code = MCH) 27.4 pg 27.0-31.0 [facility] HospitalJssbwxmZRNFKIRYGJ5805-21-86 17:51:00 Test Item Value Reference Range Interpretation Comments MCHC (test code = MCHC) 33.0 32.0-36.0 [facility] Hospit[id number] 17:51:00 Test Item Value Reference Range Interpretation Comments RDW (test code = RDW) 14.2 11.5-14.5 [facility] HospitalJransryUJFSJKBJSZ5093-25-92 17:51:00 Test Item Value Reference Range Interpretation Comments Platelet (test code = Platelet) 267 133-450 [facility] HospitalPyommenLXBVYJIOPS4238-95-12 17:51:00 Test Item Value Reference Range Interpretation Comments MPV (test code = MPV) 8.5 7.4-10.4 [facility] HospitalZmkdwxiRGJMTKFAYW5463-10-89 17:51:00 Test Item Value Reference Range Interpretation Comments Segs (test code = Segs) 48.9 45.0-75.0 [facility] HospitalFpsrpanSREHIBVDES3053-95-28 17:51:00 Test Item Value Reference Range Interpretation Comments Lymphocytes (test code = Lymphocytes) 38.7 20.0-40.0 [place] 226420-06-25 17:51:00 Test Item Value Reference Range Interpretation Comments Monocytes (test code = Monocytes) 8.2 2.0-12.0 [place] [id number] 17:51:00 Test Item Value Reference Range Interpretation Comments Eosinophils (test code = 2.7 See_Comment [A utomated message] The Eosinophils) system which ge nerated this result tra nsmitted reference range : <=4.0. The reference r david was not used to int erpret this result as normal/abnormal . [facility] HospitalZycevttQQXZZGMEZG3290-18-29 17:51:00 Test Item Value Reference Range Interpretation Comments Basophils (test code = 1.5 See_Comment [Aut omated message] The Basophils) system which ge nerated this result tra nsmitted reference range : <=1.0. The reference r david was not used to int erpret this result as normal/abnormal . [facility] HospitalKxxbkotTRCGNXITXF8146-00-54 17:51:00 Test Item Value Reference Range Interpretation Comments Neutrophils # (test code = Neutrophils 2.9 1.5-8.1 #) [facility] HospitalDiethohBACVPVMRTC1318-09-58 17:51:00 Test Item Value Reference Range Interpretation Comments Lymphocytes # (test code = Lymphocytes 2.3 1.0-5.5 #) [facility] HospitalJnemfvoPYLMQNCJIZ1858-74-29 17:51:00 Test Item Value Reference Range Interpretation Comments Monocytes # (test code 0.5 See_Comment [Aut omated message] The = Monocytes #) system which generated this result tra nsmitted reference range : <=0.8. The reference r david was not used to int erpret this result as normal/abnormal . [facility] Hospit[id number] 17:51:00 Test Item Value Reference Range Interpretation Comments Eosinophils # (test code 0.2 See_Comment [A utomated message] The = Eosinophils #) system whic h generated this result tra nsmitted reference range : <=0.5. The reference r david was not used to int erpret this result as normal/abnormal . [facility] Hospit[id number] 17:51:00 Test Item Value Reference Range Interpretation Comments Basophils # (test code 0.1 See_Comment [Aut omated message] The = Basophils #) system which generated this result tra nsmitted reference range : <=0.2. The reference r david was not used to int erpret this result as normal/abnormal . [facility] AND [id number] 17:51:00 Test Item Value Reference Range Interpretation Comments UA Color (test code = Light Yellow UA Color) *NA*(04/10/20 12:51 PM) [facility] AND [id number] 17:51:00 Test Item Value Reference Range Interpretation Comments UA Turbidity (test code = Clear (04/10/20 12:51 [facility] T[facility]idity) PM) [facility] [id number] 17:51:00 Test Item Value Reference Range Interpretation Comments UA Spec Grav (test code = UA Spec 1.024 1 Grav) [facility] [id number] 17:51:00 Test Item Value Reference Range Interpretation Comments UA pH (test code = UA pH) 6.0 1 5.0-8.0 [facility] [id number] 17:51:00 Test Item Value Reference Range Interpretation Comments UA Protein (test code Negative (04/10/20 12:51 = UA Protein) PM) [facility] [id number] 17:51:00 Test Item Value Reference Range Interpretation Comments UA Glucose (test code = UA Glucose) 500 mg/dL [facility] [id number] 17:51:00 Test Item Value Reference Range Interpretation Comments UA Ketones (test code = UA Ketones) 20 mg/dL [facility] [id number] 17:51:00 Test Item Value Reference Range Interpretation Comments UA Bili (test code = Negative *NA*(04/10/20 UA Bili) 12:51 PM) [facility] [id number] 17:51:00 Test Item Value Reference Range Interpretation Comments UA Blood (test code = Negative (04/10/20 12:51 [facility]A Blood) PM) [facility] [id number] 17:51:00 Test Item Value Reference Range Interpretation Comments UA Urobilinogen (test code = UA <=1.0 mg/dL 0.1-1.0 Urobilinogen) [facility] [id number] 17:51:00 Test Item Value Reference Range Interpretation Comments UA Nitrite (test code Negative (04/10/20 12:51 = UA Nitrite) PM) [facility] [id number] 17:51:00 Test Item Value Reference Range Interpretation Comments UA Leuk Est (test Negative (04/10/20 12:51 code = UA Leuk Est) PM) [facility] [id number] 17:51:00 Test Item Value Reference Range Interpretation Comments UA Sq Epi (test code = None Seen (04/10/20 UA Sq Epi) 12:51 PM) [facility] [id number] 17:51:00 Test Item Value Reference Range Interpretation Comments UA WBC (test code = 1 See_Comment [Automa anjelica message] The UA WBC) system which ge nerated this result transmit anjelica reference range : <=5. The reference range was not used to interpr et this result as randa l/abnormal. [facility] AND [id number] 17:51:00 Test Item Value Reference Range Interpretation Comments UA RBC (test code = 1 See_Comment [Automa anjelica message] The UA RBC) system which ge nerated this result transmit anjelica reference range : <=2. The reference range was not used to interpr et this result as randa l/abnormal. [facility] [employer] [id number] 17:51:00 Test Item Value Reference Range Interpretation Comments Glucose Lvl (test code = Glucose Lvl) 375 70-99 [facility] [employer] [id number] 17:51:00 Test Item Value Reference Range Interpretation Comments BUN (test code = BUN) 19 7-22 [facility] [employer] [id number] 17:51:00 Test Item Value Reference Range Interpretation Comments Creatinine Lvl (test code = Creatinine 1.04 0.50-1.40 Lvl) [facility] [employer] [id number] 17:51:00 Test Item Value Reference Range Interpretation Comments Sodium Lvl (test code = Sodium Lvl) 135 135-145 [facility] [employer] [id number] 17:51:00 Test Item Value Reference Range Interpretation Comments Potassium Lvl (test code = Potassium 4.0 3.5-5.1 Lvl) [facility] [employer] [id number] 17:51:00 Test Item Value Reference Range Interpretation Comments Chloride Lvl (test code = Chloride Lvl) 96 95-109 [facility] [employer] [id number] 17:51:00 Test Item Value Reference Range Interpretation Comments CO2 (test code = CO2) 30 24-32 [facility] [employer] [id number] 17:51:00 Test Item Value Reference Range Interpretation Comments Calcium Lvl (test code = Calcium Lvl) 9.5 8.5-10.5 [facility] [employer] [id number] 17:51:00 Test Item Value Reference Range Interpretation Comments Total Protein (test code = Total 8.2 6.4-8.4 Protein) [facility] [id number] 17:51:00 Test Item Value Reference Range Interpretation Comments Albumin Lvl (test code = Albumin Lvl) 4.0 3.5-5.0 [facility] [id number] 17:51:00 Test Item Value Reference Range Interpretation Comments ALT (test code = ALT) 51 See_Comment [Auto mated message] The system which ge nerated this result transmit anjelica reference range : <=65. The reference range was not used to interpr et this result as randa l/abnormal. [facility] [id number] 17:51:00 Test Item Value Reference Range Interpretation Comments AST (test code = AST) 28 See_Comment [Auto mated message] The system which ge nerated this result transmit anjelica reference range : <=37. The reference range was not used to interpr et this result as randa l/abnormal. [facility] [id number] 17:51:00 Test Item Value Reference Range Interpretation Comments Alk Phos (test code = Alk Phos) 134 39-136 [facility] [id number] 17:51:00 Test Item Value Reference Range Interpretation Comments Bili Total (test code = Bili Total) 0.4 0.2-1.3 [facility] [id number] 17:51:00 Test Item Value Reference Range Interpretation Comments AGAP (test code = AGAP) 13.0 10.0-20.0 [facility] [id number] 17:51:00 Test Item Value Reference Range Interpretation Comments B/C Ratio (test code = B/C Ratio) 18 1 6-25 [facility] [id number] 17:51:00 Test Item Value Reference Range Interpretation Comments Globulin (test code = Globulin) 4.2 2.7-4.2 [facility] [employer] [id number] 17:51:00 Test Item Value Reference Range Interpretation Comments A/G Ratio (test code = A/G Ratio) 1.0 1 0.7-1.6 [facility] [id number] 17:51:00 Test Item Value Reference Range Interpretation Comments eGFR (test code = eGFR) 82 [facility] [id number] 17:51:00 Test Item Value Reference Range Interpretation Comments Lipase Lvl (test code = Lipase Lvl) 73 73-393 [facility] HospitalRtmclqnELUYCVICVS8072-93-48 17:51:00 Test Item Value Reference Range Interpretation Comments WBC (test code = WBC) 5.9 3.7-10.4 [facility] HospitalAyttdetYPRLWUBZDO9310-33-13 17:51:00 Test Item Value Reference Range Interpretation Comments RBC (test code = RBC) 6.23 4.70-6.10 [facility] HospitalIybqofaBZQDIHXKOQ2391-05-54 17:51:00 Test Item Value Reference Range Interpretation Comments Hgb (test code = Hgb) 17.1 14.0-18.0 [facility] HospitalJahkedzDXYQXOLJCE8339-75-60 17:51:00 Test Item Value Reference Range Interpretation Comments Hct (test code = Hct) 51.8 42.0-54.0 [facility] HospitalFukwozxGDQCOBNNYZ9528-60-22 17:51:00 Test Item Value Reference Range Interpretation Comments MCV (test code = MCV) 83.1 80.0-94.0 [facility] HospitalKjkrxtgUMTFJCHYCE8076-45-71 17:51:00 Test Item Value Reference Range Interpretation Comments MCH (test code = MCH) 27.4 pg 27.0-31.0 [facility] Hos[id number] 17:51:00 Test Item Value Reference Range Interpretation Comments MCHC (test code = MCHC) 33.0 32.0-36.0 [facility] Ho[id number] 17:51:00 Test Item Value Reference Range Interpretation Comments RDW (test code = RDW) 14.2 11.5-14.5 [facility] HospitalStmqzqaPVOFSWFJOZ8541-42-73 17:51:00 Test Item Value Reference Range Interpretation Comments Platelet (test code = Platelet) 267 133-450 [facility] H[id number] 17:51:00 Test Item Value Reference Range Interpretation Comments MPV (test code = MPV) 8.5 7.4-10.4 [facility] Hospit[id number] 17:51:00 Test Item Value Reference Range Interpretation Comments Segs (test code = Segs) 48.9 45.0-75.0 [facility] HospitalBwpxdoqNTNRPKOAXC2045-87-74 17:51:00 Test Item Value Reference Range Interpretation Comments Lymphocytes (test code = Lymphocytes) 38.7 20.0-40.0 [place] 226420-06-25 17:51:00 Test Item Value Reference Range Interpretation Comments Monocytes (test code = Monocytes) 8.2 2.0-12.0 [place] 226420-06-25 17:51:00 Test Item Value Reference Range Interpretation Comments Eosinophils (test code = 2.7 See_Comment [A utomated message] The Eosinophils) system which ge nerated this result tra nsmitted reference range : <=4.0. The reference r david was not used to int erpret this result as normal/abnormal . [facility] Hosp[id number] 17:51:00 Test Item Value Reference Range Interpretation Comments Basophils (test code = 1.5 See_Comment [Aut omated message] The Basophils) system which ge nerated this result tra nsmitted reference range : <=1.0. The reference r david was not used to int erpret this result as normal/abnormal . [facility] H[id number] 17:51:00 Test Item Value Reference Range Interpretation Comments Neutrophils # (test code = Neutrophils 2.9 1.5-8.1 #) [place] 226420-06-25 17:51:00 Test Item Value Reference Range Interpretation Comments Lymphocytes # (test code = Lymphocytes 2.3 1.0-5.5 #) [facility] H[id number] 17:51:00 Test Item Value Reference Range Interpretation Comments Monocytes # (test code 0.5 See_Comment [Aut omated message] The = Monocytes #) system which generated this result tra nsmitted reference range : <=0.8. The reference r david was not used to int erpret this result as normal/abnormal . [place] 226420-06-25 17:51:00 Test Item Value Reference Range Interpretation Comments Eosinophils # (test code 0.2 See_Comment [A utomated message] The = Eosinophils #) system whic h generated this result tra nsmitted reference range : <=0.5. The reference r david was not used to int erpret this result as normal/abnormal . [facility] Hospit[id number] 17:51:00 Test Item Value Reference Range Interpretation Comments Basophils # (test code 0.1 See_Comment [Aut omated message] The = Basophils #) system which generated this result tra nsmitted reference range : <=0.2. The reference r david was not used to int erpret this result as normal/abnormal . [facility] [id number] 17:51:00 Test Item Value Reference Range Interpretation Comments UA Color (test code = Light Yellow UA Color) *NA*(04/10/20 12:51 PM) [facility] [id number] 17:51:00 Test Item Value Reference Range Interpretation Comments UA Turbidity (test code = Clear (04/10/20 12:51 UA Turbidity) PM) [facility] AND [id number] 17:51:00 Test Item Value Reference Range Interpretation Comments UA Spec Grav (test code = UA Spec 1.024 1 Grav) [facility] AND [id number] 17:51:00 Test Item Value Reference Range Interpretation Comments UA pH (test code = UA pH) 6.0 1 5.0-8.0 [facility] AND [id number] 17:51:00 Test Item Value Reference Range Interpretation Comments UA Protein (test code Negative (04/10/20 12:51 = UA Protein) PM) [facility] AND [id number] 17:51:00 Test Item Value Reference Range Interpretation Comments UA Glucose (test code = UA Glucose) 500 mg/dL [facility] AND [id number] 17:51:00 Test Item Value Reference Range Interpretation Comments UA Ketones (test code = UA Ketones) 20 mg/dL [facility] AND [id number] 17:51:00 Test Item Value Reference Range Interpretation Comments UA Bili (test code = Negative *NA*(04/10/20 UA Bili) 12:51 PM) [facility] AND [id number] 17:51:00 Test Item Value Reference Range Interpretation Comments UA Blood (test code = Negative (04/10/20 12:51 UA Blood) PM) [facility] [id number] 17:51:00 Test Item Value Reference Range Interpretation Comments UA Urobilinogen (test code = UA <=1.0 mg/dL 0.1-1.0 Urobilinogen) [facility] AND [id number] 17:51:00 Test Item Value Reference Range Interpretation Comments UA Nitrite (test code Negative (04/10/20 12:51 = UA Nitrite) PM) [facility] AND [id number] 17:51:00 Test Item Value Reference Range Interpretation Comments UA Leuk Est (test Negative (04/10/20 12:51 code = UA Leuk Est) PM) [facility] AND [id number] 17:51:00 Test Item Value Reference Range Interpretation Comments UA Sq Epi (test code = None Seen (04/10/20 UA Sq Epi) 12:51 PM) [facility] AND [id number] 17:51:00 Test Item Value Reference Range Interpretation Comments UA WBC (test code = 1 See_Comment [Automa anjelica message] The UA WBC) system which ge nerated this result transmit anjelica reference range : <=5. The reference range was not used to interpr et this result as randa l/abnormal. [facility] AND [id number] 17:51:00 Test Item Value Reference Range Interpretation Comments UA RBC (test code = 1 See_Comment [Automa anjelica message] The UA RBC) system which ge nerated this result transmit anjelica reference range : <=2. The reference range was not used to interpr et this result as randa l/abnormal. [facility] [employer] [id number] 17:51:00 Test Item Value Reference Range Interpretation Comments Glucose Lvl (test code = Glucose Lvl) 375 70-99 [facility] [id number] 17:51:00 Test Item Value Reference Range Interpretation Comments BUN (test code = BUN) 19 7-22 [facility] [employer] [id number] 17:51:00 Test Item Value Reference Range Interpretation Comments Creatinine Lvl (test code = Creatinine 1.04 0.50-1.40 Lvl) [facility] [employer] [id number] 17:51:00 Test Item Value Reference Range Interpretation Comments Sodium Lvl (test code = Sodium Lvl) 135 135-145 [facility] [employer] [id number] 17:51:00 Test Item Value Reference Range Interpretation Comments Potassium Lvl (test code = Potassium 4.0 3.5-5.1 Lvl) [facility] [employer] [id number] 17:51:00 Test Item Value Reference Range Interpretation Comments Chloride Lvl (test code = Chloride Lvl) 96 95-109 [facility] [id number] 17:51:00 Test Item Value Reference Range Interpretation Comments CO2 (test code = CO2) 30 24-32 [facility] [id number] 17:51:00 Test Item Value Reference Range Interpretation Comments Calcium Lvl (test code = Calcium Lvl) 9.5 8.5-10.5 [facility] [id number] 17:51:00 Test Item Value Reference Range Interpretation Comments Total Protein (test code = Total 8.2 6.4-8.4 Protein) [facility] [id number] 17:51:00 Test Item Value Reference Range Interpretation Comments Albumin Lvl (test code = Albumin Lvl) 4.0 3.5-5.0 [facility] [id number] 17:51:00 Test Item Value Reference Range Interpretation Comments ALT (test code = ALT) 51 See_Comment [Auto mated message] The system which ge nerated this result transmit anjelica reference range : <=65. The reference range was not used to interpr et this result as randa l/abnormal. [facility] [employer] [id number] 17:51:00 Test Item Value Reference Range Interpretation Comments AST (test code = AST) 28 See_Comment [Auto mated message] The system which ge nerated this result transmit anjelica reference range : <=37. The reference range was not used to interpr et this result as randa l/abnormal. [facility] [employer] [id number] 17:51:00 Test Item Value Reference Range Interpretation Comments Alk Phos (test code = Alk Phos) 134 39-136 [facility] [id number] 17:51:00 Test Item Value Reference Range Interpretation Comments Bili Total (test code = Bili Total) 0.4 0.2-1.3 [facility] [id number] 17:51:00 Test Item Value Reference Range Interpretation Comments AGAP (test code = AGAP) 13.0 10.0-20.0 [facility] [id number] 17:51:00 Test Item Value Reference Range Interpretation Comments B/C Ratio (test code = B/C Ratio) 18 1 6-25 [facility] [id number] 17:51:00 Test Item Value Reference Range Interpretation Comments Globulin (test code = Globulin) 4.2 2.7-4.2 [facility] [id number] 17:51:00 Test Item Value Reference Range Interpretation Comments A/G Ratio (test code = A/G Ratio) 1.0 1 0.7-1.6 [facility] [id number] 17:51:00 Test Item Value Reference Range Interpretation Comments eGFR (test code = eGFR) 82 [facility] [id number] 17:51:00 Test Item Value Reference Range Interpretation Comments Lipase Lvl (test code = Lipase Lvl) 73 73-393 [facility] HospitalXlpdvswCMHLLUSHST5922-71-40 17:51:00 Test Item Value Reference Range Interpretation Comments WBC (test code = WBC) 5.9 3.7-10.4 [facility] HospitalVtnntglWADVSIZBOW6814-90-95 17:51:00 Test Item Value Reference Range Interpretation Comments RBC (test code = RBC) 6.23 4.70-6.10 [facility] HospitalDnrfaxqVHMJBZTAYX0134-57-35 17:51:00 Test Item Value Reference Range Interpretation Comments Hgb (test code = Hgb) 17.1 14.0-18.0 [facility] Ho[id number] 17:51:00 Test Item Value Reference Range Interpretation Comments Hct (test code = Hct) 51.8 42.0-54.0 [facility] H[id number] 17:51:00 Test Item Value Reference Range Interpretation Comments MCV (test code = MCV) 83.1 80.0-94.0 [place] 226420-06-25 17:51:00 Test Item Value Reference Range Interpretation Comments MCH (test code = MCH) 27.4 pg 27.0-31.0 [facility] Hos[id number] 17:51:00 Test Item Value Reference Range Interpretation Comments MCHC (test code = MCHC) 33.0 32.0-36.0 [place] 226420-06-25 17:51:00 Test Item Value Reference Range Interpretation Comments RDW (test code = RDW) 14.2 11.5-14.5 [facility] H[id number] 17:51:00 Test Item Value Reference Range Interpretation Comments Platelet (test code = Platelet) 267 133-450 [facility] Hos[id number] 17:51:00 Test Item Value Reference Range Interpretation Comments MPV (test code = MPV) 8.5 7.4-10.4 [facility] H[id number] 17:51:00 Test Item Value Reference Range Interpretation Comments Segs (test code = Segs) 48.9 45.0-75.0 [facility] HospitalJtadrwhGSIMIVHBAI0979-11-74 17:51:00 Test Item Value Reference Range Interpretation Comments Lymphocytes (test code = Lymphocytes) 38.7 20.0-40.0 [place] 226420-06-25 17:51:00 Test Item Value Reference Range Interpretation Comments Monocytes (test code = Monocytes) 8.2 2.0-12.0 [facility] Hospit[id number] 17:51:00 Test Item Value Reference Range Interpretation Comments Eosinophils (test code = 2.7 See_Comment [A utomated message] The Eosinophils) system which ge nerated this result tra nsmitted reference range : <=4.0. The reference r david was not used to int erpret this result as normal/abnormal . [facility] [id number] 17:51:00 Test Item Value Reference Range Interpretation Comments Basophils (test code = 1.5 See_Comment [Aut omated message] The Basophils) system which ge nerated this result tra nsmitted reference range : <=1.0. The reference r david was not used to int erpret this result as normal/abnormal . [facility]UhwftfxXQBIOLSNTS8664-97-37 17:51:00 Test Item Value Reference Range Interpretation Comments Neutrophils # (test code = Neutrophils 2.9 1.5-8.1 #) [facility] HospitalJmcpscyAUGWAYTALA1753-90-02 17:51:00 Test Item Value Reference Range Interpretation Comments Lymphocytes # (test code = Lymphocytes 2.3 1.0-5.5 #) [facility] HospitalQuyxfrzONQYMWRIJX2154-94-68 17:51:00 Test Item Value Reference Range Interpretation Comments Monocytes # (test code 0.5 See_Comment [Aut omated message] The = Monocytes #) system which generated this result tra nsmitted reference range : <=0.8. The reference r david was not used to int erpret this result as normal/abnormal . [id number] 17:51:00 Test Item Value Reference Range Interpretation Comments Eosinophils # (test code 0.2 See_Comment [A utomated message] The = Eosinophils #) system whic h generated this result tra nsmitted reference range : <=0.5. The reference r david was not used to int erpret this result as normal/abnormal . [facility]VoiswmtVXZZSBSMUP5099-34-29 17:51:00 Test Item Value Reference Range Interpretation Comments Basophils # (test code 0.1 See_Comment [Aut omated message] The = Basophils #) system which generated this result tra nsmitted reference range : <=0.2. The reference r david was not used to int erpret this result as normal/abnormal . [facility] AND [id number] 17:51:00 Test Item Value Reference Range Interpretation Comments UA Color (test code = Light Yellow UA Color) *NA*(04/10/20 12:51 PM) [facility] AND [id number] 17:51:00 Test Item Value Reference Range Interpretation Comments UA Turbidity (test code = Clear (04/10/20 12:51 UA Turbidity) PM) [facility] AND [id number] 17:51:00 Test Item Value Reference Range Interpretation Comments UA Spec Grav (test code = UA Spec 1.024 1 Grav) [facility] AND [id number] 17:51:00 Test Item Value Reference Range Interpretation Comments UA pH (test code = UA pH) 6.0 1 5.0-8.0 [facility] AND [id number] 17:51:00 Test Item Value Reference Range Interpretation Comments UA Protein (test code Negative (04/10/20 12:51 = UA Protein) PM) [facility] AND [id number] 17:51:00 Test Item Value Reference Range Interpretation Comments UA Glucose (test code = UA Glucose) 500 mg/dL [facility] AND [id number] 17:51:00 Test Item Value Reference Range Interpretation Comments UA Ketones (test code = UA Ketones) 20 mg/dL [facility] AND [id number] 17:51:00 Test Item Value Reference Range Interpretation Comments UA Bili (test code = Negative *NA*(04/10/20 UA Bili) 12:51 PM) [facility] [id number] 17:51:00 Test Item Value Reference Range Interpretation Comments UA Blood (test code = Negative (04/10/20 12:51 [facility]A Blood) PM) [facility] [id number] 17:51:00 Test Item Value Reference Range Interpretation Comments UA Urobilinogen (test code = UA <=1.0 mg/dL 0.1-1.0 Urobilinogen) [facility] [id number] 17:51:00 Test Item Value Reference Range Interpretation Comments UA Nitrite (test code Negative (04/10/20 12:51 = UA Nitrite) PM) [facility] [id number] 17:51:00 Test Item Value Reference Range Interpretation Comments UA Leuk Est (test Negative (04/10/20 12:51 code = UA Leuk Est) PM) [facility] [id number] 17:51:00 Test Item Value Reference Range Interpretation Comments UA Sq Epi (test code = None Seen (04/10/20 UA Sq Epi) 12:51 PM) [facility] [id number] 17:51:00 Test Item Value Reference Range Interpretation Comments UA WBC (test code = 1 See_Comment [Automa anjelica message] The UA WBC) system which ge nerated this result transmit anjelica reference range : <=5. The reference range was not used to interpr et this result as randa l/abnormal. [facility] [id number] 17:51:00 Test Item Value Reference Range Interpretation Comments UA RBC (test code = 1 See_Comment [Automa anjelica message] The UA RBC) system which ge nerated this result transmit anjelica reference range : <=2. The reference range was not used to interpr et this result as randa l/abnormal. [facility] sportif225annCenter for [facility] Science [id number] 17:51:00 Test Item Value Reference Range Interpretation Comments Glucose Lvl (test code = Glucose Lvl) 375 70-99 [facility] [id number] 17:51:00 Test Item Value Reference Range Interpretation Comments BUN (test code = BUN) 19 7-22 [facility] [id number] 17:51:00 Test Item Value Reference Range Interpretation Comments Creatinine Lvl (test code = Creatinine 1.04 0.50-1.40 Lvl) [facility] [id number] 17:51:00 Test Item Value Reference Range Interpretation Comments Sodium Lvl (test code = Sodium Lvl) 135 135-[address] [facility] [id number] 17:51:00 Test Item Value Reference Range Interpretation Comments Potassium Lvl (test code = Potassium 4.0 3.5-5.1 Lvl) [facility] [id number] 17:51:00 Test Item Value Reference Range Interpretation Comments Chloride Lvl (test code = Chloride Lvl) 96 95-109 [facility] [id number] 17:51:00 Test Item Value Reference Range Interpretation Comments CO2 (test code = CO2) 30 24-32 [facility] [id number] 17:51:00 Test Item Value Reference Range Interpretation Comments Calcium Lvl (test code = Calcium Lvl) 9.5 8.5-10.5 [facility] [id number] 17:51:00 Test Item Value Reference Range Interpretation Comments Total Protein (test code = Total 8.2 6.4-8.4 Protein) [facility] [id number] 17:51:00 Test Item Value Reference Range Interpretation Comments Albumin Lvl (test code = Albumin Lvl) 4.0 3.5-5.[address] [facility] [id number] 17:51:00 Test Item Value Reference Range Interpretation Comments ALT (test code = ALT) 51 See_Comment [Auto mated message] The system which ge nerated this result transmit anjelica reference range : <=65. The reference range was not used to interpr et this result as randa l/abnormal. [facility] [id number] 17:51:00 Test Item Value Reference Range Interpretation Comments AST (test code = AST) 28 See_Comment [Auto mated message] The system which ge nerated this result transmit anjeliac reference range : <=37. The reference range was not used to interpr et this result as randa l/abnormal. [facility] [id number] 17:51:00 Test Item Value Reference Range Interpretation Comments Alk Phos (test code = Alk Phos) 134 39-136 [facility]2020-06-25 17:51:00 Test Item Value Reference Range Interpretation Comments Bili Total (test code = Bili Total) 0.4 0.2-1.3 [facility]2020-06-25 17:51:00 Test Item Value Reference Range Interpretation Comments AGAP (test code = AGAP) 13.0 10.0-20.0 [facility]2020-06-25 17:51:00 Test Item Value Reference Range Interpretation Comments B/C Ratio (test code = B/C Ratio) 18 1 6-25 [facility]2020-06-25 17:51:00 Test Item Value Reference Range Interpretation Comments Globulin (test code = Globulin) 4.2 2.7-4.2 [facility]2020-06-25 17:51:00 Test Item Value Reference Range Interpretation Comments A/G Ratio (test code = A/G Ratio) 1.0 1 0.7-1.6 [place] [id number] 17:51:00 Test Item Value Reference Range Interpretation Comments eGFR (test code = eGFR) 82 [facility]2020-06-25 17:51:00 Test Item Value Reference Range Interpretation Comments Lipase Lvl (test code = Lipase Lvl) 73 73-393 [facility] HospitalNxbgqseJTUBMQTPCW6861-27-49 17:51:00 Test Item Value Reference Range Interpretation Comments WBC (test code = WBC) 5.9 3.7-10.4 [facility] HospitalIyzlnpfNZXHUFTZYX6723-36-60 17:51:00 Test Item Value Reference Range Interpretation Comments RBC (test code = RBC) 6.23 4.70-6.10 [facility]HcsklyyKHATAYWYKZCB3713-74-24 13:53:00 Test Item Value Reference Range Interpretation Comments POC Sodium (test code = POC Sodium) 134 135-145 [facility]HxoimclVHJDYBACAHGE7986-41-28 13:53:00 Test Item Value Reference Range Interpretation Comments POC Potassium (test code = POC 4.2 3.5-5.1 Potassium) [facility] HospitalDntdtmhKDVDOTRSMZLB9267-92-42 13:53:00 Test Item Value Reference Range Interpretation Comments POC Chloride (test code = POC Chloride) 94 95-109 [place] [id number] 13:53:00 Test Item Value Reference Range Interpretation Comments POC Carbon Dioxide (test code = POC 27 24-32 Carbon Dioxide) [facility] HospitalOszktvqHPLGAEVKBAGJ4676-75-14 13:53:00 Test Item Value Reference Range Interpretation Comments POC BUN (test code = POC BUN) 17 7-22 [facility] HospitalRmxwaryNQOXRTVQQEBX0527-82-77 13:53:00 Test Item Value Reference Range Interpretation Comments POC Creatinine (test code = POC 0.6 0.5-1.4 Creatinine) [facility] HospitalDouwekrYDVKCLBSSWOQ0016-44-69 13:53:00 Test Item Value Reference Range Interpretation Comments POC Glucose (test code = POC Glucose) 442 70-99 [facility] HospitalKmycfokETXKKBKYQOFQ7803-61-10 13:53:00 Test Item Value Reference Range Interpretation Comments POC Ion Ca (test code = POC Ion Ca) 1.31 1.05-1.25 [facility] HospitalPkkbblwETCEGMEUYBFU5767-93-40 13:53:00 Test Item Value Reference Range Interpretation Comments POC Hemoglobin (test code = POC 17.0 14.0-18.0 Hemoglobin) [facility] HospitalOnrchjkQPKSCOFXUHQJ5005-68-97 13:53:00 Test Item Value Reference Range Interpretation Comments POC Hematocrit (test code = POC 50.0 42.0-54.0 Hematocrit) [facility] HospitalGlqebtxFWUWADUZLCWR8004-12-94 13:53:00 Test Item Value Reference Range Interpretation Comments POC AGAP (test code = POC AGAP) 18.0 10.0-20.0 [facility] HospitalSyvkxsgYFOKJKFVHZKA8600-08-63 13:53:00 Test Item Value Reference Range Interpretation Comments eGFR (test code = eGFR) 115 [facility] HospitalDggudvxVBPFEMSYVFTO1818-78-87 13:53:00 Test Item Value Reference Range Interpretation Comments POC Disclaimer (test code See Note = POC Disclaimer) *NA*(04/07/20 8:53 AM) [facility] HospitalKfehjceUHVOQTNVCXRA3895-22-90 13:53:00 Test Item Value Reference Range Interpretation Comments POC Sodium (test code = POC Sodium) 134 135-145 [facility] HospitalXpueyqoIILVPESGSLMS1549-94-32 13:53:00 Test Item Value Reference Range Interpretation Comments POC Potassium (test code = POC 4.2 3.5-5.1 Potassium) [facility] HospitalDiqyaamBWWPBVYLZIYR6827-21-83 13:53:00 Test Item Value Reference Range Interpretation Comments POC Chloride (test code = POC Chloride) 94 95-109 [facility] HospitalAsgmxynTUNWDYVEYOMB6991-90-67 13:53:00 Test Item Value Reference Range Interpretation Comments POC Carbon Dioxide (test code = POC 27 24-32 Carbon Dioxide) [facility] HospitalZruxxouDKKFOSJUAKPM0308-58-09 13:53:00 Test Item Value Reference Range Interpretation Comments POC BUN (test code = POC BUN) 17 7-22 [facility] HospitalIicmtyqCCVYATCVLTHV5221-29-31 13:53:00 Test Item Value Reference Range Interpretation Comments POC Creatinine (test code = POC 0.6 0.5-1.4 Creatinine) [facility] HospitalPjptviqXLSLMRLXLTFC0607-06-46 13:53:00 Test Item Value Reference Range Interpretation Comments POC Glucose (test code = POC Glucose) 442 70-99 [facility] HospitalCgjbfstGREPEQIDFARJ0400-36-73 13:53:00 Test Item Value Reference Range Interpretation Comments POC Ion Ca (test code = POC Ion Ca) 1.31 1.05-1.25 [facility] HospitalIqrjyvlXZADJQKKIMNX4921-57-64 13:53:00 Test Item Value Reference Range Interpretation Comments POC Hemoglobin (test code = POC 17.0 14.0-18.0 Hemoglobin) [facility] HospitalEpakybuWLOOVGWNVMWR5941-08-48 13:53:00 Test Item Value Reference Range Interpretation Comments POC Hematocrit (test code = POC 50.0 42.0-54.0 Hematocrit) [facility] HospitalSryxkizXLSMLBTCPDJR9543-11-98 13:53:00 Test Item Value Reference Range Interpretation Comments POC AGAP (test code = POC AGAP) 18.0 10.0-20.0 [facility] HospitalEwmzmugXEEPENUSOTUP5531-44-66 13:53:00 Test Item Value Reference Range Interpretation Comments eGFR (test code = eGFR) 115 [facility] HospitalQwnpgqzMOPPABGCNHPX2503-66-68 13:53:00 Test Item Value Reference Range Interpretation Comments POC Disclaimer (test code See Note = POC Disclaimer) *NA*(04/07/20 8:53 AM) [facility] HospitalXjweujvODRGPSTMARDC9684-61-76 13:53:00 Test Item Value Reference Range Interpretation Comments POC Sodium (test code = POC Sodium) 134 135-145 [facility] HospitalPkferffBDEFLAPRVTKX2273-65-98 13:53:00 Test Item Value Reference Range Interpretation Comments POC Potassium (test code = POC 4.2 3.5-5.1 Potassium) [facility] HospitalFiiencdWMHJWNUQGYZS7511-10-56 13:53:00 Test Item Value Reference Range Interpretation Comments POC Chloride (test code = POC Chloride) 94 95-109 [facility] HospitalTkbjekvDCTRGFEXZUOZ9311-99-09 13:53:00 Test Item Value Reference Range Interpretation Comments POC Carbon Dioxide (test code = POC 27 24-32 Carbon Dioxide) [facility] HospitalCqfxevmJAVHPMJZUKTC5015-05-19 13:53:00 Test Item Value Reference Range Interpretation Comments POC BUN (test code = POC BUN) 17 7-22 [facility] HospitalWgpuwtrDLDZQIPTPBXX7669-43-53 13:53:00 Test Item Value Reference Range Interpretation Comments POC Creatinine (test code = POC 0.6 0.5-1.4 Creatinine) [facility] HospitalZeebdvgCSBBNOZVNPPK0684-30-88 13:53:00 Test Item Value Reference Range Interpretation Comments POC Glucose (test code = POC Glucose) 442 70-99 [facility] HospitalWocykmfDMRVOJCUDSEZ1755-40-83 13:53:00 Test Item Value Reference Range Interpretation Comments POC Ion Ca (test code = POC Ion Ca) 1.31 1.05-1.25 [facility] HospitalEozurggBDQIHKKDGJKP0020-60-14 13:53:00 Test Item Value Reference Range Interpretation Comments POC Hemoglobin (test code = POC 17.0 14.0-18.0 Hemoglobin) [facility] HospitalDaluocaXTEZNYVYYRCO1090-72-19 13:53:00 Test Item Value Reference Range Interpretation Comments POC Hematocrit (test code = POC 50.0 42.0-54.0 Hematocrit) [facility] HospitalXyaojvySMKCSACDLJVC1755-44-16 13:53:00 Test Item Value Reference Range Interpretation Comments POC AGAP (test code = POC AGAP) 18.0 10.0-20.0 [facility] HospitalIedxfxcKYWSRFWYWKNS3205-49-94 13:53:00 Test Item Value Reference Range Interpretation Comments eGFR (test code = eGFR) 115 [facility] HospitalJxzruteBHNFUKDWMTNK7115-57-22 13:53:00 Test Item Value Reference Range Interpretation Comments POC Disclaimer (test code See Note = POC Disclaimer) *NA*(04/07/20 8:53 AM) [facility] HospitalSnhiuwxWLCHGIGJVPAK0816-43-96 13:53:00 Test Item Value Reference Range Interpretation Comments POC Sodium (test code = POC Sodium) 134 135-145 [facility] HospitalSaswjvoVPLNGUMMOUWR4186-17-13 13:53:00 Test Item Value Reference Range Interpretation Comments POC Potassium (test code = POC 4.2 3.5-5.1 Potassium) [facility] HospitalCfanisoAOUAJLFLNABH5668-68-75 13:53:00 Test Item Value Reference Range Interpretation Comments POC Chloride (test code = POC Chloride) 94 95-109 [facility] HospitalJbwbxssKNIUGLKGDGFN9648-41-40 13:53:00 Test Item Value Reference Range Interpretation Comments POC Carbon Dioxide (test code = POC 27 24-32 Carbon Dioxide) [facility] HospitalAthpfobUWPRHPGFYEZN7831-78-56 13:53:00 Test Item Value Reference Range Interpretation Comments POC BUN (test code = POC BUN) 17 7-22 [facility] HospitalUrdyqurFTLCIBZOSPZH9756-65-69 13:53:00 Test Item Value Reference Range Interpretation Comments POC Creatinine (test code = POC 0.6 0.5-1.4 Creatinine) [facility] HospitalTvtoptiYUXVTYQERKHV4027-92-57 13:53:00 Test Item Value Reference Range Interpretation Comments POC Glucose (test code = POC Glucose) 442 70-99 [facility] HospitalVtixjqqOFLGLTEVIJCW0000-51-76 13:53:00 Test Item Value Reference Range Interpretation Comments POC Ion Ca (test code = POC Ion Ca) 1.31 1.05-1.25 [facility] HospitalVriofadNKEWCQAGVZLN0343-57-69 13:53:00 Test Item Value Reference Range Interpretation Comments POC Hemoglobin (test code = POC 17.0 14.0-18.0 Hemoglobin) [facility] HospitalPecbxesVFXVPKTQVUND4803-21-78 13:53:00 Test Item Value Reference Range Interpretation Comments POC Hematocrit (test code = POC 50.0 42.0-54.0 Hematocrit) [facility] HospitalXacsuszUYIQAENTAAYC5849-51-28 13:53:00 Test Item Value Reference Range Interpretation Comments POC AGAP (test code = POC AGAP) 18.0 10.0-20.0 [facility] HospitalYlullccODJRBWAQUOCB3118-65-53 13:53:00 Test Item Value Reference Range Interpretation Comments eGFR (test code = eGFR) 115 [facility] HospitalNwfmtxwKWDKVXPWDFXJ2397-22-26 13:53:00 Test Item Value Reference Range Interpretation Comments POC Disclaimer (test code See Note = POC Disclaimer) *NA*(04/07/20 8:53 AM) [facility]sfpkkpFVMVHYZRXA8762-70-01 16:43:00 Test Item Value Reference Range Interpretation Comments Coronavirus (COVID-19) Not Detected (04/04/20 CYRUS (test code = 11:43 AM) Coronavirus (COVID-19) CYRUS) [facility]wayZqhthvxICOJXFOMOZ0061-79-06 16:43:00 Test Item Value Reference Range Interpretation Comments Coronavirus (COVID-19) Not Detected (04/04/20 CYRUS (test code = 11:43 AM) Coronavirus (COVID-19) CYRUS) [facility]wayZpndmwqHPLYHPHJDI0884-17-55 16:43:00 Test Item Value Reference Range Interpretation Comments Coronavirus (COVID-19) Not Detected (04/04/20 CYRUS (test code = 11:43 AM) Coronavirus (COVID-19) CYRUS) [facility]wayGbkepalOIAKZJPPLK9817-49-89 16:43:00 Test Item Value Reference Range Interpretation Comments Coronavirus (COVID-19) Not Detected (04/04/20 CYRUS (test code = 11:43 AM) Coronavirus (COVID-19) CYRUS) [facility] MICROSCOPICOW2020-03-14 21:03:00 Test Item Value Reference [...] EXAM: XR CHEST 1 VIEW PORTABLE *OW*HISTORY: [id number]: Chest pain TECHNIQUE: Frontal view of the chest.COMPARISON: 10/06/2019FINDINGS:The lungs are well inflated. There is interstitial coarsening throughout bothlungs which is new compared to prior, likely representing interstitial edema.No evidence of pneumothorax or pleural effusion. The heart is normal in size. The mediastinal contoursare unremarkable. Osseous structures are intact. IMPRESSION:Interstitial coarsening throughout both lungs which is new compared to prior,likely representing interstitial edema TROPONIN I OW2019-10-07 21:35:00 Test Item Value Reference Range Interpretation Comments TROPONIN I (test code = A84) 0.010 ng/mL 0.000-0.045 CARDIAC TURQBXV2531-09-78 06:36:00 Test Item Value Reference Range Interpretation Comments TROPONIN I (test code = A84) <0.015 ng/mL 0.000-0.045 BASIC METABOLIC [id number] 06:32:00 Test Item Value Reference Range Interpretation [...] <235 ng/mL D-DU* [employer] 8 Panel *OW* cysktzg1085-79-03 15:18:00 Test Item Value Reference Range Interpretation [...] code = GMID%) 7.9 % 0.0-10.0 CHEM VQDXP9279-15-80 16:36:00 Test Item Value Reference Range Interpretation Comments Glucose Lvl (test code = Glucose Lvl) 272 70-99 [facility]2019-09-12 16:36:00 Test Item Value Reference Range Interpretation Comments BUN (test code = BUN) 23 7-22 [facility]2019-09-12 16:36:00 Test Item Value Reference Range Interpretation Comments Creatinine Lvl (test code = Creatinine 0.82 0.50-1.40 Lvl) [facility]2019-09-12 16:36:00 Test Item Value Reference Range Interpretation Comments Sodium Lvl (test code = Sodium Lvl) 137 135-145 [facility]2019-09-12 16:36:00 Test Item Value Reference Range Interpretation Comments Potassium Lvl (test code = Potassium 4.3 3.5-5.1 Lvl) [facility]2019-09-12 16:36:00 Test Item Value Reference Range Interpretation Comments Chloride Lvl (test code = Chloride Lvl) 102 95-109 [facility]2019-09-12 16:36:00 Test Item Value Reference Range Interpretation Comments CO2 (test code = CO2) 29 24-32 [facility]2019-09-12 16:36:00 Test Item Value Reference Range Interpretation Comments Calcium Lvl (test code = Calcium Lvl) 9.1 8.5-10.5 [facility]2019-09-12 16:36:00 Test Item Value Reference Range Interpretation Comments eGFR (test code = eGFR) 102 [facility]2019-09-12 16:36:00 Test Item Value Reference Range Interpretation Comments AGAP (test code = AGAP) 10.3 10.0-20.0 [facility]2019-09-12 16:36:00 Test Item Value Reference Range Interpretation Comments Procalcitonin Lvl (test no gt See_Comment [Au tomated message] code = Procalcitonin Lvl) e system which generated this result transmitted ref erence range: <=0.10. The reference range was not used to interpr et this result as normal/abnormal . [facility] HospitalKoifqkdESTYCASIDU6418-48-30 16:36:00 Test Item Value Reference Range Interpretation Comments WBC (test code = WBC) 14.8 3.7-10.4 [facility] HospitalMgqwteyIWMXHHAMGJ4615-21-35 16:36:00 Test Item Value Reference Range Interpretation Comments RBC (test code = RBC) 5.07 4.70-6.10 [facility] HospitalGyvzoxwMMMWUFQPRQ7180-46-75 16:36:00 Test Item Value Reference Range Interpretation Comments Hgb (test code = Hgb) 14.7 14.0-18.0 [facility] HospitalMwbjckwPSWTICZWKX3035-62-36 16:36:00 Test Item Value Reference Range Interpretation Comments Hct (test code = Hct) 44.2 42.0-54.0 [facility] HospitalLwgkaliALFTKQBCJA8867-41-98 16:36:00 Test Item Value Reference Range Interpretation Comments MCV (test code = MCV) 87.1 80.0-94.0 [facility] HospitalUcbsgpwQAQXJHZMLO2998-99-68 16:36:00 Test Item Value Reference Range Interpretation Comments MCH (test code = MCH) 29.0 pg 27.0-31.0 [facility] HospitalOzxmukyPTPIKTQXXX9131-68-09 16:36:00 Test Item Value Reference Range Interpretation Comments MCHC (test code = MCHC) 33.4 32.0-36.0 [facility] HospitalXcifbptRRCHADFHDZ4745-82-82 16:36:00 Test Item Value Reference Range Interpretation Comments RDW (test code = RDW) 14.9 11.5-14.5 [facility] HospitalKytdxoxHDOZYMKUVF5545-41-47 16:36:00 Test Item Value Reference Range Interpretation Comments Platelet (test code = Platelet) 315 133-450 [facility] HospitalFfdxwdzQWDFNTEWAH8564-80-58 16:36:00 Test Item Value Reference Range Interpretation Comments MPV (test code = MPV) 8.8 7.4-10.4 [facility]2019-09-12 16:36:00 Test Item Value Reference Range Interpretation Comments Glucose Lvl (test code = Glucose Lvl) 272 70-99 [facility]2019-09-12 16:36:00 Test Item Value Reference Range Interpretation Comments BUN (test code = BUN) 23 7-22 [facility]2019-09-12 16:36:00 Test Item Value Reference Range Interpretation Comments Creatinine Lvl (test code = Creatinine 0.82 0.50-1.40 Lvl) [facility]2019-09-12 16:36:00 Test Item Value Reference Range Interpretation Comments Sodium Lvl (test code = Sodium Lvl) 137 135-145 [facility]2019-09-12 16:36:00 Test Item Value Reference Range Interpretation Comments Potassium Lvl (test code = Potassium 4.3 3.5-5.1 Lvl) [facility]2019-09-12 16:36:00 Test Item Value Reference Range Interpretation Comments Chloride Lvl (test code = Chloride Lvl) 102 95-109 [facility]2019-09-12 16:36:00 Test Item Value Reference Range Interpretation Comments CO2 (test code = CO2) 29 24-32 [facility]2019-09-12 16:36:00 Test Item Value Reference Range Interpretation Comments Calcium Lvl (test code = Calcium Lvl) 9.1 8.5-10.5 [facility]2019-09-12 16:36:00 Test Item Value Reference Range Interpretation Comments eGFR (test code = eGFR) 102 [facility]2019-09-12 16:36:00 Test Item Value Reference Range Interpretation Comments AGAP (test code = AGAP) 10.3 10.0-20.0 [facility]2019-09-12 16:36:00 Test Item Value Reference Range Interpretation Comments Procalcitonin Lvl (test no gt See_Comment [Au tomated message] code = Procalcitonin Lvl) Th e system which generated this result transmitted ref erence range: <=0.10. The reference range was not used to interpr et this result as normal/abnormal . [facility]SvqjkkjBPMLYRNHPG3334-38-58 16:36:00 Test Item Value Reference Range Interpretation Comments WBC (test code = WBC) 14.8 3.7-10.4 [facility] HospitalRxuuqhsVRYLJFXLWO8425-26-90 16:36:00 Test Item Value Reference Range Interpretation Comments RBC (test code = RBC) 5.07 4.70-6.10 [facility] HospitalStofyjnDFZNCDFQCV2898-01-47 16:36:00 Test Item Value Reference Range Interpretation Comments Hgb (test code = Hgb) 14.7 14.0-18.0 [facility] HospitalPogxhxcEPUKSGQWBK0065-60-97 16:36:00 Test Item Value Reference Range Interpretation Comments Hct (test code = Hct) 44.2 42.0-54.0 [facility] HospitalAzoyvbmJCCMQBTMUQ5407-74-89 16:36:00 Test Item Value Reference Range Interpretation Comments MCV (test code = MCV) 87.1 80.0-94.0 [facility] HospitalGunuxqsXCIDTQQQFG8507-14-46 16:36:00 Test Item Value Reference Range Interpretation Comments MCH (test code = MCH) 29.0 pg 27.0-31.0 [facility] HospitalGxorwysXZPIHCDCBH9404-06-22 16:36:00 Test Item Value Reference Range Interpretation Comments MCHC (test code = MCHC) 33.4 32.0-36.0 [facility] HospitalMpfehfdVMLSHRGMCD1527-79-11 16:36:00 Test Item Value Reference Range Interpretation Comments RDW (test code = RDW) 14.9 11.5-14.5 [facility] HospitalNfqzwdpFQXICWYWON2432-29-54 16:36:00 Test Item Value Reference Range Interpretation Comments Platelet (test code = Platelet) 315 133-450 [facility] HospitalHhravcuMNZRUXOBUB7170-77-91 16:36:00 Test Item Value Reference Range Interpretation Comments MPV (test code = MPV) 8.8 7.4-10.4 [facility]2019-09-12 16:36:00 Test Item Value Reference Range Interpretation Comments Glucose Lvl (test code = Glucose Lvl) 272 70-99 [facility]2019-09-12 16:36:00 Test Item Value Reference Range Interpretation Comments BUN (test code = BUN) 23 7-22 [facility]2019-09-12 16:36:00 Test Item Value Reference Range Interpretation Comments Creatinine Lvl (test code = Creatinine 0.82 0.50-1.40 Lvl) [facility]2019-09-12 16:36:00 Test Item Value Reference Range Interpretation Comments Sodium Lvl (test code = Sodium Lvl) 137 135-145 [facility]2019-09-12 16:36:00 Test Item Value Reference Range Interpretation Comments Potassium Lvl (test code = Potassium 4.3 3.5-5.1 Lvl) [facility]2019-09-12 16:36:00 Test Item Value Reference Range Interpretation Comments Chloride Lvl (test code = Chloride Lvl) 102 95-109 [facility]2019-09-12 16:36:00 Test Item Value Reference Range Interpretation Comments CO2 (test code = CO2) 29 24-32 [facility]2019-09-12 16:36:00 Test Item Value Reference Range Interpretation Comments Calcium Lvl (test code = Calcium Lvl) 9.1 8.5-10.5 [facility]2019-09-12 16:36:00 Test Item Value Reference Range Interpretation Comments eGFR (test code = eGFR) 102 [facility]2019-09-12 16:36:00 Test Item Value Reference Range Interpretation Comments AGAP (test code = AGAP) 10.3 10.0-20.0 [facility]2019-09-12 16:36:00 Test Item Value Reference Range Interpretation Comments Procalcitonin Lvl (test no gt See_Comment [Au tomated message] code = Procalcitonin Lvl) e system which generated this result transmitted ref erence range: <=0.10. The reference range was not used to interpr et this result as normal/abnormal . [facility] HospitalVtehqboZFRWDMPIMG5985-68-43 16:36:00 Test Item Value Reference Range Interpretation Comments WBC (test code = WBC) 14.8 3.7-10.4 [facility] HospitalVyqoloqXUBBLFFLCC1613-06-43 16:36:00 Test Item Value Reference Range Interpretation Comments RBC (test code = RBC) 5.07 4.70-6.10 [facility] HospitalImjwuorBVYRNSFQJZ3754-44-75 16:36:00 Test Item Value Reference Range Interpretation Comments Hgb (test code = Hgb) 14.7 14.0-18.0 [facility] HospitalMtzwwuqXFYBUYSFYX5561-10-36 16:36:00 Test Item Value Reference Range Interpretation Comments Hct (test code = Hct) 44.2 42.0-54.0 [facility] HospitalZqwwueoZEMVBROCAG7319-96-39 16:36:00 Test Item Value Reference Range Interpretation Comments MCV (test code = MCV) 87.1 80.0-94.0 [facility] HospitalCmtyhcaLUZPDNDYDC2888-65-80 16:36:00 Test Item Value Reference Range Interpretation Comments MCH (test code = MCH) 29.0 pg 27.0-31.0 [facility] HospitalZehzrzwDSUHULJUUN0240-98-40 16:36:00 Test Item Value Reference Range Interpretation Comments MCHC (test code = MCHC) 33.4 32.0-36.0 [facility] HospitalSpqczfeAGKDFTWECT9274-42-79 16:36:00 Test Item Value Reference Range Interpretation Comments RDW (test code = RDW) 14.9 11.5-14.5 [facility] HospitalJonkystUKOPLAYKSC5488-24-03 16:36:00 Test Item Value Reference Range Interpretation Comments Platelet (test code = Platelet) 315 133-450 [facility] HospitalSdsqtffGWEQQEGEAP3096-19-71 16:36:00 Test Item Value Reference Range Interpretation Comments MPV (test code = MPV) 8.8 7.4-10.4 [facility]2019-09-12 16:36:00 Test Item Value Reference Range Interpretation Comments Glucose Lvl (test code = Glucose Lvl) 272 70-99 [facility]2019-09-12 16:36:00 Test Item Value Reference Range Interpretation Comments BUN (test code = BUN) 23 7-22 [facility]2019-09-12 16:36:00 Test Item Value Reference Range Interpretation Comments Creatinine Lvl (test code = Creatinine 0.82 0.50-1.40 Lvl) [facility]2019-09-12 16:36:00 Test Item Value Reference Range Interpretation Comments Sodium Lvl (test code = Sodium Lvl) 137 135-145 [facility]2019-09-12 16:36:00 Test Item Value Reference Range Interpretation Comments Potassium Lvl (test code = Potassium 4.3 3.5-5.1 Lvl) [facility]2019-09-12 16:36:00 Test Item Value Reference Range Interpretation Comments Chloride Lvl (test code = Chloride Lvl) 102 95-109 [facility]2019-09-12 16:36:00 Test Item Value Reference Range Interpretation Comments CO2 (test code = CO2) 29 24-32 [facility]2019-09-12 16:36:00 Test Item Value Reference Range Interpretation Comments Calcium Lvl (test code = Calcium Lvl) 9.1 8.5-10.5 [facility]2019-09-12 16:36:00 Test Item Value Reference Range Interpretation Comments eGFR (test code = eGFR) 102 [facility]2019-09-12 16:36:00 Test Item Value Reference Range Interpretation Comments AGAP (test code = AGAP) 10.3 10.0-20.0 [facility]2019-09-12 16:36:00 Test Item Value Reference Range Interpretation Comments Procalcitonin Lvl (test no gt See_Comment [Au tomated message] code = Procalcitonin Lvl) e system which generated this result transmitted ref erence range: <=0.10. The reference range was not used to interpr et this result as normal/abnormal . [facility] HospitalIigedyfZDAKYXDHOK7111-58-71 16:36:00 Test Item Value Reference Range Interpretation Comments WBC (test code = WBC) 14.8 3.7-10.4 [facility] HospitalRkvpsedWROCEZUCUX5946-46-08 16:36:00 Test Item Value Reference Range Interpretation Comments RBC (test code = RBC) 5.07 4.70-6.10 [facility] HospitalRhcttlyLFBLATJHPJ8574-82-85 16:36:00 Test Item Value Reference Range Interpretation Comments Hgb (test code = Hgb) 14.7 14.0-18.0 [facility] HospitalJdqvbtuRSYFEPSJVR5858-33-99 16:36:00 Test Item Value Reference Range Interpretation Comments Hct (test code = Hct) 44.2 42.0-54.0 [facility] HospitalByjhczlJDDFUROJJS8769-32-02 16:36:00 Test Item Value Reference Range Interpretation Comments MCV (test code = MCV) 87.1 80.0-94.0 [facility] HospitalXuvdnwnNSRGFBNCKH4364-38-74 16:36:00 Test Item Value Reference Range Interpretation Comments MCH (test code = MCH) 29.0 pg 27.0-31.0 [facility] HospitalUldbqdcHTBSHCLEVY0586-96-71 16:36:00 Test Item Value Reference Range Interpretation Comments MCHC (test code = MCHC) 33.4 32.0-36.0 [facility] HospitalZnxaoijYUCJJZDYOH6524-45-22 16:36:00 Test Item Value Reference Range Interpretation Comments RDW (test code = RDW) 14.9 11.5-14.5 [facility] HospitalCdoavrnANZLKLYRXX2482-49-64 16:36:00 Test Item Value Reference Range Interpretation Comments Platelet (test code = Platelet) 315 133-450 [facility] HospitalDhcirlqRZTLHLCCVD6669-32-09 16:36:00 Test Item Value Reference Range Interpretation Comments MPV (test code = MPV) 8.8 7.4-10.4 [facility] HospitalVicyashIGHHKXPFXE6596-00-48 10:38:00 Test Item Value Reference Range Interpretation Comments WBC (test code = WBC) 13.5 3.7-10.4 [facility] HospitalFzwnzejTVVMVIJSWT2277-80-75 10:38:00 Test Item Value Reference Range Interpretation Comments RBC (test code = RBC) 5.00 4.70-6.10 [facility] HospitalYvnktrbCSTGUNXLEG2570-13-29 10:38:00 Test Item Value Reference Range Interpretation Comments Hgb (test code = Hgb) 14.6 14.0-18.0 [facility] HospitalOnqoretJVFQHDYQMY5602-61-02 10:38:00 Test Item Value Reference Range Interpretation Comments Hct (test code = Hct) 43.8 42.0-54.0 [facility] HospitalYxdeknqJJXYVOSMMI3551-11-97 10:38:00 Test Item Value Reference Range Interpretation Comments MCV (test code = MCV) 87.5 80.0-94.0 [facility] HospitalCavslwzTPCIHCZQCJ9955-71-80 10:38:00 Test Item Value Reference Range Interpretation Comments MCH (test code = MCH) 29.2 pg 27.0-31.0 [facility] HospitalPyugnajLQHRYXNTME5787-93-66 10:38:00 Test Item Value Reference Range Interpretation Comments MCHC (test code = MCHC) 33.4 32.0-36.0 [facility] HospitalJwkfuvbTKECQFLQFK2365-02-27 10:38:00 Test Item Value Reference Range Interpretation Comments RDW (test code = RDW) 14.8 11.5-14.5 [facility] HospitalEfgzmgsORSHFAHJTB5654-57-76 10:38:00 Test Item Value Reference Range Interpretation Comments Platelet (test code = Platelet) 326 133-450 [facility] HospitalDpcjrsoXVZZGDIWTD9734-55-67 10:38:00 Test Item Value Reference Range Interpretation Comments MPV (test code = MPV) 8.9 7.4-10.4 [facility] HospitalWlaeyneBHDAPJZQSK2350-45-75 10:38:00 Test Item Value Reference Range Interpretation Comments WBC (test code = WBC) 13.5 3.7-10.4 [facility] HospitalUdehpftGZIETCHZHC8702-39-73 10:38:00 Test Item Value Reference Range Interpretation Comments RBC (test code = RBC) 5.00 4.70-6.10 [facility] HospitalZitualzFFJOLKFFGT7909-66-06 10:38:00 Test Item Value Reference Range Interpretation Comments Hgb (test code = Hgb) 14.6 14.0-18.0 [facility] HospitalGndwcaeDSCFOYMEIY8843-78-55 10:38:00 Test Item Value Reference Range Interpretation Comments Hct (test code = Hct) 43.8 42.0-54.0 [facility] HospitalHtxktbiWXHKSSXYEQ2858-85-78 10:38:00 Test Item Value Reference Range Interpretation Comments MCV (test code = MCV) 87.5 80.0-94.0 [facility] HospitalYpgstpvIOMQPLDUAW2757-13-85 10:38:00 Test Item Value Reference Range Interpretation Comments MCH (test code = MCH) 29.2 pg 27.0-31.0 [facility] HospitalBjxqlrqZRMBJTBOID8406-00-61 10:38:00 Test Item Value Reference Range Interpretation Comments MCHC (test code = MCHC) 33.4 32.0-36.0 [facility] HospitalNmfbnzkFGYZTQIPMP4152-94-61 10:38:00 Test Item Value Reference Range Interpretation Comments RDW (test code = RDW) 14.8 11.5-14.5 [facility] HospitalHgxqquwUXRNOJUWGO9215-96-75 10:38:00 Test Item Value Reference Range Interpretation Comments Platelet (test code = Platelet) 313 177-751 [facility] HospitalHdytcomUGLXZLURPH1226-44-34 10:38:00 Test Item Value Reference Range Interpretation Comments MPV (test code = MPV) 8.9 7.4-10.4 [facility] HospitalKujlljgXEYBVFPBCV5453-50-25 10:38:00 Test Item Value Reference Range Interpretation Comments WBC (test code = WBC) 13.5 3.7-10.4 [facility] HospitalKegxqweNLDUKFGEFL1856-18-36 10:38:00 Test Item Value Reference Range Interpretation Comments RBC (test code = RBC) 5.00 4.70-6.10 [facility] HospitalIwjyqyjTSIGCDETGZ1064-89-08 10:38:00 Test Item Value Reference Range Interpretation Comments Hgb (test code = Hgb) 14.6 14.0-18.0 [facility] HospitalJzzqwccSEVATMALEX8419-40-99 10:38:00 Test Item Value Reference Range Interpretation Comments Hct (test code = Hct) 43.8 42.0-54.0 [facility] HospitalEsaeyehJTOAPQFUJG2028-73-24 10:38:00 Test Item Value Reference Range Interpretation Comments MCV (test code = MCV) 87.5 80.0-94.0 [facility] HospitalEpkzdefNAINCVKDUJ6864-24-90 10:38:00 Test Item Value Reference Range Interpretation Comments MCH (test code = MCH) 29.2 pg 27.0-31.0 [facility] HospitalMxdkppbYNPYHQWBCQ6977-50-26 10:38:00 Test Item Value Reference Range Interpretation Comments MCHC (test code = MCHC) 33.4 32.0-36.0 [facility] HospitalXjjcnibIYSDSEROBV2321-08-40 10:38:00 Test Item Value Reference Range Interpretation Comments RDW (test code = RDW) 14.8 11.5-14.5 [facility] HospitalRkolefsSFOTXQCFSQ2835-87-82 10:38:00 Test Item Value Reference Range Interpretation Comments Platelet (test code = Platelet) 619 652-219 [facility] HospitalUmncyqnQAPDBDSJNJ9403-25-89 10:38:00 Test Item Value Reference Range Interpretation Comments MPV (test code = MPV) 8.9 7.4-10.4 [facility] HospitalQobhjzvBAWZQMYCAN8223-37-63 10:38:00 Test Item Value Reference Range Interpretation Comments WBC (test code = WBC) 13.5 3.7-10.4 [facility] HospitalOqpurutLTDZAPFYZN3093-21-90 10:38:00 Test Item Value Reference Range Interpretation Comments RBC (test code = RBC) 5.00 4.70-6.10 [facility] HospitalOthcqnkKAZSJBRVFH8098-32-54 10:38:00 Test Item Value Reference Range Interpretation Comments Hgb (test code = Hgb) 14.6 14.0-18.0 [facility] HospitalNuipphpNRDOOBSBPO7772-88-19 10:38:00 Test Item Value Reference Range Interpretation Comments Hct (test code = Hct) 43.8 42.0-54.0 [facility] HospitalGiffxmiWKGZVMVGFA1813-63-44 10:38:00 Test Item Value Reference Range Interpretation Comments MCV (test code = MCV) 87.5 80.0-94.0 [facility] HospitalUnacxzvEEQDMNCGYJ5264-85-68 10:38:00 Test Item Value Reference Range Interpretation Comments MCH (test code = MCH) 29.2 pg 27.0-31.0 [facility] HospitalCogszciREYALTJIQT0101-57-98 10:38:00 Test Item Value Reference Range Interpretation Comments MCHC (test code = MCHC) 33.4 32.0-36.0 [facility] HospitalLbgnnejBBPWFTVLPC4925-21-84 10:38:00 Test Item Value Reference Range Interpretation Comments RDW (test code = RDW) 14.8 11.5-14.5 [facility] HospitalYyuvvrsDOYOMQDBLS2324-25-15 10:38:00 Test Item Value Reference Range Interpretation Comments Platelet (test code = Platelet) 326 133-450 [facility] HospitalDjwsrmnFITCGFDSCM9732-51-49 10:38:00 Test Item Value Reference Range Interpretation Comments MPV (test code = MPV) 8.9 7.4-10.4 [facility]2019-09-11 08:45:00 Test Item Value Reference Range Interpretation Comments Glucose Lvl (test code = Glucose Lvl) 275 70-99 [facility]2019-09-11 08:45:00 Test Item Value Reference Range Interpretation Comments BUN (test code = BUN) 19 7-22 [facility]2019-09-11 08:45:00 Test Item Value Reference Range Interpretation Comments Creatinine Lvl (test code = Creatinine 0.77 0.50-1.40 Lvl) [facility]2019-09-11 08:45:00 Test Item Value Reference Range Interpretation Comments Sodium Lvl (test code = Sodium Lvl) 137 135-145 [facility]2019-09-11 08:45:00 Test Item Value Reference Range Interpretation Comments Potassium Lvl (test code = Potassium 4.3 3.5-5.1 Lvl) [facility]2019-09-11 08:45:00 Test Item Value Reference Range Interpretation Comments Chloride Lvl (test code = Chloride Lvl) 102 95-109 [place] 515929-09-11 08:45:00 Test Item Value Reference Range Interpretation Comments CO2 (test code = CO2) 28 24-32 [facility]2019-09-11 08:45:00 Test Item Value Reference Range Interpretation Comments AGAP (test code = AGAP) 11.3 10.0-20.0 [facility]2019-09-11 08:45:00 Test Item Value Reference Range Interpretation Comments Calcium Lvl (test code = Calcium Lvl) 8.6 8.5-10.5 [facility]2019-09-11 08:45:00 Test Item Value Reference Range Interpretation Comments eGFR (test code = eGFR) 104 [facility]2019-09-11 08:45:00 Test Item Value Reference Range Interpretation Comments Lactic Acid Lvl (test code = Lactic 2.4 0.5-2.2 Acid Lvl) [facility] HospitalJssnqrxGONXLXIPEK0600-59-42 08:45:00 Test Item Value Reference Range Interpretation Comments WBC (test code = WBC) 11.3 3.7-10.4 [facility] HospitalOfpshpuWBLCSMFSDV7923-95-01 08:45:00 Test Item Value Reference Range Interpretation Comments RBC (test code = RBC) 5.05 4.70-6.10 [facility] HospitalZwrgnwtHRUORXDVKY6954-49-43 08:45:00 Test Item Value Reference Range Interpretation Comments Hgb (test code = Hgb) 14.9 14.0-18.0 [place] 905279-09-11 08:45:00 Test Item Value Reference Range Interpretation Comments Hct (test code = Hct) 44.1 42.0-54.0 [facility] HospitalDjzurpfLXGIQHTEGF3448-85-07 08:45:00 Test Item Value Reference Range Interpretation Comments MCV (test code = MCV) 87.4 80.0-94.0 [facility] HospitalZqwlkmdCIJAVMCAIP4454-97-80 08:45:00 Test Item Value Reference Range Interpretation Comments MCH (test code = MCH) 29.4 pg 27.0-31.0 [facility] HospitalFfjawtaTJIESDRJTK2226-05-94 08:45:00 Test Item Value Reference Range Interpretation Comments MCHC (test code = MCHC) 33.7 32.0-36.0 [facility] HospitalRjixhaiHPFDAJMEFV4399-06-26 08:45:00 Test Item Value Reference Range Interpretation Comments RDW (test code = RDW) 14.9 11.5-14.5 [facility] HospitalGdfhxvcQVAQAWMKOV3928-76-19 08:45:00 Test Item Value Reference Range Interpretation Comments Platelet (test code = Platelet) 281 133-450 [facility] HospitalMkadgdeJLLTXLZFMC8217-16-09 08:45:00 Test Item Value Reference Range Interpretation Comments MPV (test code = MPV) 9.2 7.4-10.4 [facility]2019-09-11 08:45:00 Test Item Value Reference Range Interpretation Comments Glucose Lvl (test code = Glucose Lvl) 275 70-99 [facility]2019-09-11 08:45:00 Test Item Value Reference Range Interpretation Comments BUN (test code = BUN) 19 7-22 [facility]2019-09-11 08:45:00 Test Item Value Reference Range Interpretation Comments Creatinine Lvl (test code = Creatinine 0.77 0.50-1.40 Lvl) [facility]2019-09-11 08:45:00 Test Item Value Reference Range Interpretation Comments Sodium Lvl (test code = Sodium Lvl) 137 135-145 [facility]2019-09-11 08:45:00 Test Item Value Reference Range Interpretation Comments Potassium Lvl (test code = Potassium 4.3 3.5-5.1 Lvl) [facility]2019-09-11 08:45:00 Test Item Value Reference Range Interpretation Comments Chloride Lvl (test code = Chloride Lvl) 102 95-109 [facility]2019-09-11 08:45:00 Test Item Value Reference Range Interpretation Comments CO2 (test code = CO2) 28 24-32 [facility]2019-09-11 08:45:00 Test Item Value Reference Range Interpretation Comments AGAP (test code = AGAP) 11.3 10.0-20.0 [facility]2019-09-11 08:45:00 Test Item Value Reference Range Interpretation Comments Calcium Lvl (test code = Calcium Lvl) 8.6 8.5-10.5 [facility]2019-09-11 08:45:00 Test Item Value Reference Range Interpretation Comments eGFR (test code = eGFR) 104 [facility]2019-09-11 08:45:00 Test Item Value Reference Range Interpretation Comments Lactic Acid Lvl (test code = Lactic 2.4 0.5-2.2 Acid Lvl) [facility] HospitalQypjfnxBSJAVMDGHY4525-89-82 08:45:00 Test Item Value Reference Range Interpretation Comments WBC (test code = WBC) 11.3 3.7-10.4 [facility] HospitalEzdwljiTETKGWGPAU3254-25-99 08:45:00 Test Item Value Reference Range Interpretation Comments RBC (test code = RBC) 5.05 4.70-6.10 [facility] HospitalJudtmlmBALQQAXDUY1068-71-13 08:45:00 Test Item Value Reference Range Interpretation Comments Hgb (test code = Hgb) 14.9 14.0-18.0 [facility] HospitalFoxzjcrXRJNZUIQRC0546-42-54 08:45:00 Test Item Value Reference Range Interpretation Comments Hct (test code = Hct) 44.1 42.0-54.0 [facility] HospitalPwphjppZZAKWTXBEB3289-54-55 08:45:00 Test Item Value Reference Range Interpretation Comments MCV (test code = MCV) 87.4 80.0-94.0 [facility] HospitalEkzehcaJNZRGEYUPH0923-94-09 08:45:00 Test Item Value Reference Range Interpretation Comments MCH (test code = MCH) 29.4 pg 27.0-31.0 [facility] HospitalFtfzczjZGFBODIEBL0672-47-34 08:45:00 Test Item Value Reference Range Interpretation Comments MCHC (test code = MCHC) 33.7 32.0-36.0 [facility] HospitalPkppruuCQZYMQDBCB5616-97-51 08:45:00 Test Item Value Reference Range Interpretation Comments RDW (test code = RDW) 14.9 11.5-14.5 [facility] HospitalDqiqeovBHTWQYODBD7292-38-66 08:45:00 Test Item Value Reference Range Interpretation Comments Platelet (test code = Platelet) 281 133-450 [facility] HospitalZmagfvdWCHDLMMIOP0616-71-89 08:45:00 Test Item Value Reference Range Interpretation Comments MPV (test code = MPV) 9.2 7.4-10.4 [facility]2019-09-11 08:45:00 Test Item Value Reference Range Interpretation Comments Glucose Lvl (test code = Glucose Lvl) 275 70-99 [facility]2019-09-11 08:45:00 Test Item Value Reference Range Interpretation Comments BUN (test code = BUN) 19 7-22 [facility]2019-09-11 08:45:00 Test Item Value Reference Range Interpretation Comments Creatinine Lvl (test code = Creatinine 0.77 0.50-1.40 Lvl) [facility]2019-09-11 08:45:00 Test Item Value Reference Range Interpretation Comments Sodium Lvl (test code = Sodium Lvl) 137 135-145 [facility]2019-09-11 08:45:00 Test Item Value Reference Range Interpretation Comments Potassium Lvl (test code = Potassium 4.3 3.5-5.1 Lvl) [facility]2019-09-11 08:45:00 Test Item Value Reference Range Interpretation Comments Chloride Lvl (test code = Chloride Lvl) 102 95-109 [facility]2019-09-11 08:45:00 Test Item Value Reference Range Interpretation Comments CO2 (test code = CO2) 28 24-32 [facility]2019-09-11 08:45:00 Test Item Value Reference Range Interpretation Comments AGAP (test code = AGAP) 11.3 10.0-20.0 [facility]2019-09-11 08:45:00 Test Item Value Reference Range Interpretation Comments Calcium Lvl (test code = Calcium Lvl) 8.6 8.5-10.5 [facility]2019-09-11 08:45:00 Test Item Value Reference Range Interpretation Comments eGFR (test code = eGFR) 104 [facility]2019-09-11 08:45:00 Test Item Value Reference Range Interpretation Comments Lactic Acid Lvl (test code = Lactic 2.4 0.5-2.2 Acid Lvl) [facility] HospitalPcgcmdlLWXOXFVGQO8155-36-32 08:45:00 Test Item Value Reference Range Interpretation Comments WBC (test code = WBC) 11.3 3.7-10.4 [facility] HospitalMzjedokUCWNWIXPTI5798-62-16 08:45:00 Test Item Value Reference Range Interpretation Comments RBC (test code = RBC) 5.05 4.70-6.10 [facility] HospitalPhpgbflEOCWKGTVEG2431-63-00 08:45:00 Test Item Value Reference Range Interpretation Comments Hgb (test code = Hgb) 14.9 14.0-18.0 [facility] HospitalZyxvymoENVZALHEYZ1347-98-37 08:45:00 Test Item Value Reference Range Interpretation Comments Hct (test code = Hct) 44.1 42.0-54.0 [facility] HospitalOzwjwrkCISZOVXWNW1929-97-13 08:45:00 Test Item Value Reference Range Interpretation Comments MCV (test code = MCV) 87.4 80.0-94.0 [id number] 08:45:00 Test Item Value Reference Range Interpretation Comments MCH (test code = MCH) 29.4 pg 27.0-31.0 [facility] Ho[id number] 08:45:00 Test Item Value Reference Range Interpretation Comments MCHC (test code = MCHC) 33.7 32.0-36.0 [facility] Hos[id number] 08:45:00 Test Item Value Reference Range Interpretation Comments RDW (test code = RDW) 14.9 11.5-14.5 [facility] H[id number] 08:45:00 Test Item Value Reference Range Interpretation Comments Platelet (test code = Platelet) 281 133-450 [facility] HospitalMimnvsyGWYZDFKYTS7375-92-20 08:45:00 Test Item Value Reference Range Interpretation Comments MPV (test code = MPV) 9.2 7.4-10.4 [facility]2019-09-11 08:45:00 Test Item Value Reference Range Interpretation Comments Glucose Lvl (test code = Glucose Lvl) 275 70-99 [facility]2019-09-11 08:45:00 Test Item Value Reference Range Interpretation Comments BUN (test code = BUN) 19 7-22 [facility]2019-09-11 08:45:00 Test Item Value Reference Range Interpretation Comments Creatinine Lvl (test code = Creatinine 0.77 0.50-1.40 Lvl) [facility]2019-09-11 08:45:00 Test Item Value Reference Range Interpretation Comments Sodium Lvl (test code = Sodium Lvl) 137 135-145 [facility]2019-09-11 08:45:00 Test Item Value Reference Range Interpretation Comments Potassium Lvl (test code = Potassium 4.3 3.5-5.1 Lvl) [facility]2019-09-11 08:45:00 Test Item Value Reference Range Interpretation Comments Chloride Lvl (test code = Chloride Lvl) 102 95-109 [facility]2019-09-11 08:45:00 Test Item Value Reference Range Interpretation Comments CO2 (test code = CO2) 28 24-32 [facility]2019-09-11 08:45:00 Test Item Value Reference Range Interpretation Comments AGAP (test code = AGAP) 11.3 10.0-20.0 [facility]2019-09-11 08:45:00 Test Item Value Reference Range Interpretation Comments Calcium Lvl (test code = Calcium Lvl) 8.6 8.5-10.5 [facility]2019-09-11 08:45:00 Test Item Value Reference Range Interpretation Comments eGFR (test code = eGFR) 104 [facility]2019-09-11 08:45:00 Test Item Value Reference Range Interpretation Comments Lactic Acid Lvl (test code = Lactic 2.4 0.5-2.2 Acid Lvl) [facility] Hos[id number] 08:45:00 Test Item Value Reference Range Interpretation Comments WBC (test code = WBC) 11.3 3.7-10.4 [facility] [id number] 08:45:00 Test Item Value Reference Range Interpretation Comments RBC (test code = RBC) 5.05 4.70-6.10 [facility] HospitalBzdgdzpFUSESXMSXD8061-45-65 08:45:00 Test Item Value Reference Range Interpretation Comments Hgb (test code = Hgb) 14.9 14.0-18.0 [facility] HospitalOzclopcQDJUVUMTIP6109-39-61 08:45:00 Test Item Value Reference Range Interpretation Comments Hct (test code = Hct) 44.1 42.0-54.0 [facility] H[id number] 08:45:00 Test Item Value Reference Range Interpretation Comments MCV (test code = MCV) 87.4 80.0-94.0 [facility]WxrlrhjJHYOAETFZT9215-93-76 08:45:00 Test Item Value Reference Range Interpretation Comments MCH (test code = MCH) 29.4 pg 27.0-31.0 [facility]SzvvuwfEWDCAKYZZJ5703-21-64 08:45:00 Test Item Value Reference Range Interpretation Comments MCHC (test code = MCHC) 33.7 32.0-36.0 [facility] [id number] 08:45:00 Test Item Value Reference Range Interpretation Comments RDW (test code = RDW) 14.9 11.5-14.5 [facility] Hos[id number] 08:45:00 Test Item Value Reference Range Interpretation Comments Platelet (test code = Platelet) 281 133-450 [facility] CenterWipkkmoVEQXICXGKZ4962-36-11 08:45:00 Test Item Value Reference Range Interpretation Comments MPV (test code = MPV) 9.2 7.4-10.4 [facility] [id number] 05:10:00 Test Item Value Reference Range Interpretation Comments Lactic Acid Lvl (test code = Lactic 5.4 0.5-2.2 Acid Lvl) [facility] [id number] 05:10:00 Test Item Value Reference Range Interpretation Comments Lactic Acid Lvl (test code = Lactic 5.4 0.5-2.2 Acid Lvl) [facility] [id number] 05:10:00 Test Item Value Reference Range Interpretation Comments Lactic Acid Lvl (test code = Lactic 5.4 0.5-2.2 Acid Lvl) [facility] [id number] 05:10:00 Test Item Value Reference Range Interpretation Comments Lactic Acid Lvl (test code = Lactic 5.4 0.5-2.2 Acid Lvl) [facility] Center[facility] [id number] 02:22:00 Test Item Value Reference Range Interpretation Comments Troponin-I (test code no gt See_Comment [Auto mated message] The = Troponin-I) system which g enerated this result transmit anjelica reference range : <=0.40. The reference r david was not used to interpr et this result as randa l/abnormal. [facility]2019-09-11 02:22:00 Test Item Value Reference Range Interpretation Comments Lactic Acid Lvl (test code = Lactic 4.5 0.5-2.2 Acid Lvl) [facility] [id number] 02:22:00 Test Item Value Reference Range Interpretation Comments Troponin-I (test code no gt See_Comment [Auto mated message] The = Troponin-I) system which g enerated this result transmit anjelica reference range : <=0.40. The reference r david was not used to interpr et this result as randa l/abnormal. [facility]2019-09-11 02:22:00 Test Item Value Reference Range Interpretation Comments Lactic Acid Lvl (test code = Lactic 4.5 0.5-2.2 Acid Lvl) [facility] [id number] 02:22:00 Test Item Value Reference Range Interpretation Comments Troponin-I (test code no gt See_Comment [Auto mated message] The = Troponin-I) system which g enerated this result transmit anjelica reference range : <=0.40. The reference r david was not used to interpr et this result as randa l/abnormal. [facility]2019-09-11 02:22:00 Test Item Value Reference Range Interpretation Comments Lactic Acid Lvl (test code = Lactic 4.5 0.5-2.2 Acid Lvl) [facility] [id number] 02:22:00 Test Item Value Reference Range Interpretation Comments Troponin-I (test code no gt See_Comment [Auto mated message] The = Troponin-I) system which g enerated this result transmit anjelica reference range : <=0.40. The reference r david was not used to interpr et this result as randa l/abnormal. [facility]2019-09-11 02:22:00 Test Item Value Reference Range Interpretation Comments Lactic Acid Lvl (test code = Lactic 4.5 0.5-2.2 Acid Lvl) [facility] [id number] 22:30:00 Test Item Value Reference Range Interpretation Comments Troponin-I (test code no gt See_Comment [Auto mated message] The = Troponin-I) system which g enerated this result transmit anjelica reference range : <=0.40. The reference r david was not used to interpr et this result as randa l/abnormal. [facility] [employer] [id number] 22:30:00 Test Item Value Reference Range Interpretation Comments Procalcitonin Lvl (test no gt See_Comment [Au tomated message] code = Procalcitonin Lvl) Th e system which generated this result transmitted ref erence range: <=0.10. The reference range was not used to interpr et this result as normal/abnormal . [facility] CenterQuantum [id number] 22:30:00 Test Item Value Reference Range Interpretation Comments Troponin-I (test code no gt See_Comment [Auto mated message] The = Troponin-I) system which g enerated this result transmit anjelica reference range : <=0.40. The reference r david was not used to interpr et this result as randa l/abnormal. [facility] HospitalPerformance [facility]ks Racing [id number] 22:30:00 Test Item Value Reference Range Interpretation Comments Procalcitonin Lvl (test no gt See_Comment [Au tomated message] code = Procalcitonin Lvl) Th e system which generated this result transmitted ref erence range: <=0.10. The reference range was not used to interpr et this result as normal/abnormal . [facility] CenterCar reviews [id number] 22:30:00 Test Item Value Reference Range Interpretation Comments Troponin-I (test code no gt See_Comment [Auto mated message] The = Troponin-I) system which g enerated this result transmit anjelica reference range : <=0.40. The reference r david was not used to interpr et this result as randa l/abnormal. [facility]Performance [facility] [id number] 22:30:00 Test Item Value Reference Range Interpretation Comments Procalcitonin Lvl (test no gt See_Comment [Au tomated message] code = Procalcitonin Lvl) Th e system which generated this result transmitted ref erence range: <=0.10. The reference range was not used to interpr et this result as normal/abnormal . [facility] HospitalAccess [facility]2019-09-10 22:30:00 Test Item Value Reference Range Interpretation Comments Troponin-I (test code no gt See_Comment [Auto mated message] The = Troponin-I) system which g enerated this result transmit anjelica reference range : <=0.40. The reference r david was not used to interpr et this result as randa l/abnormal. [facility] CenterCHEM [id number] 22:30:00 Test Item Value Reference Range Interpretation Comments Procalcitonin Lvl (test no gt See_Comment [Au tomated message] code = Procalcitonin Lvl) Th e system which generated this result transmitted ref erence range: <=0.10. The reference range was not used to interpr et this result as normal/abnormal . [facility] AND [id number] 17:07:00 Test Item Value Reference Range Interpretation Comments UA Color (test code = Yellow *NA*(06/26/19 UA Color) 12:07 PM) [facility] AND [id number] 17:07:00 Test Item Value Reference Range Interpretation Comments UA Turbidity (test code Marked *ABN*(06/26/19 = UA Turbidity) 12:07 PM) [facility] AND [id number] 17:07:00 Test Item Value Reference Range Interpretation Comments UA Spec Grav (test code = UA Spec 1.024 1 Grav) [facility] AND [id number] 17:07:00 Test Item Value Reference Range Interpretation Comments UA pH (test code = UA pH) 5.0 1 5.0-8.0 [facility] AND [id number] 17:07:00 Test Item Value Reference Range Interpretation Comments UA Protein (test code = UA >=300 mg/dL Protein) [facility] AND [id number] 17:07:00 Test Item Value Reference Range Interpretation Comments UA Glucose (test code = UA Glucose) 50 mg/dL [facility] AND [id number] 17:07:00 Test Item Value Reference Range Interpretation Comments UA Ketones (test code = UA Negative mg/dL Ketones) [facility] AND [id number] 17:07:00 Test Item Value Reference Range Interpretation Comments UA Bili (test code = Negative *NA*(06/26/19 UA Bili) 12:07 PM) [facility] AND [id number] 17:07:00 Test Item Value Reference Range Interpretation Comments UA Blood (test code = Negative (06/26/19 12:07 UA Blood) PM) [facility] AND [id number] 17:07:00 Test Item Value Reference Range Interpretation Comments UA Nitrite (test code Negative (06/26/19 12:07 = UA Nitrite) PM) [facility] AND [id number] 17:07:00 Test Item Value Reference Range Interpretation Comments UA Leuk Est (test Negative (06/26/19 12:07 code = UA Leuk Est) PM) [facility] AND [id number] 17:07:00 Test Item Value Reference Range Interpretation Comments UA Sq Epi (test code = UA Sq Occasional /LPF Epi) [facility] AND [id number] 17:07:00 Test Item Value Reference Range Interpretation Comments UA WBC (test code = 4 See_Comment [Automa anjelica message] The UA WBC) system which ge nerated this result transmit anjelica reference range : <=5. The reference range was not used to interpr et this result as randa l/abnormal. [facility] AND [id number] 17:07:00 Test Item Value Reference Range Interpretation Comments UA RBC (test code = 6 See_Comment [Automa anjelica message] The UA RBC) system which ge nerated this result transmit anjelica reference range : <=2. The reference range was not used to interpr et this result as randa l/abnormal. [facility] AND [id number] 17:07:00 Test Item Value Reference Range Interpretation Comments UA Mucus (test code = UA Mucus) Few /LPF [facility] AND [id number] 17:07:00 Test Item Value Reference Range Interpretation Comments UA Hyal Cast (test 4 See_Comment [Automat ed message] The code = UA Hyal Cast) system which generated this result transmit anjelica reference range : <=2. The reference range was not used to interpr et this result as randa l/abnormal. [facility] AND [id number] 17:07:00 Test Item Value Reference Range Interpretation Comments UA Urobilinogen (test code = UA <=1.0 mg/dL 0.1-1.0 Urobilinogen) [facility] AND [id number] 17:07:00 Test Item Value Reference Range Interpretation Comments UA Color (test code = Yellow *NA*(06/26/19 UA Color) 12:07 PM) [facility] AND [id number] 17:07:00 Test Item Value Reference Range Interpretation Comments UA Turbidity (test code Marked *ABN*(06/26/19 = UA Turbidity) 12:07 PM) [facility] AND [id number] 17:07:00 Test Item Value Reference Range Interpretation Comments UA Spec Grav (test code = UA Spec 1.024 1 Grav) [facility] AND [id number] 17:07:00 Test Item Value Reference Range Interpretation Comments UA pH (test code = UA pH) 5.0 1 5.0-8.0 [facility] AND [id number] 17:07:00 Test Item Value Reference Range Interpretation Comments UA Protein (test code = UA >=300 mg/dL Protein) [facility] AND [id number] 17:07:00 Test Item Value Reference Range Interpretation Comments UA Glucose (test code = UA Glucose) 50 mg/dL [facility] AND [id number] 17:07:00 Test Item Value Reference Range Interpretation Comments UA Ketones (test code = UA Negative mg/dL Ketones) [facility] AND [id number] 17:07:00 Test Item Value Reference Range Interpretation Comments UA Bili (test code = Negative *NA*(06/26/19 UA Bili) 12:07 PM) [facility] AND [id number] 17:07:00 Test Item Value Reference Range Interpretation Comments UA Blood (test code = Negative (06/26/19 12:07 UA Blood) PM) [facility] AND [id number] 17:07:00 Test Item Value Reference Range Interpretation Comments UA Nitrite (test code Negative (06/26/19 12:07 = UA Nitrite) PM) [facility] AND [id number] 17:07:00 Test Item Value Reference Range Interpretation Comments UA Leuk Est (test Negative (06/26/19 12:07 code = UA Leuk Est) PM) [facility] AND [id number] 17:07:00 Test Item Value Reference Range Interpretation Comments UA Sq Epi (test code = UA Sq Occasional /LPF Epi) [facility] AND [id number] 17:07:00 Test Item Value Reference Range Interpretation Comments UA WBC (test code = 4 See_Comment [Automa anjelica message] The UA WBC) system which ge nerated this result transmit anjelica reference range : <=5. The reference range was not used to interpr et this result as randa l/abnormal. [facility] AND [id number] 17:07:00 Test Item Value Reference Range Interpretation Comments UA RBC (test code = 6 See_Comment [Automa anjelica message] The UA RBC) system which ge nerated this result transmit anjelica reference range : <=2. The reference range was not used to interpr et this result as randa l/abnormal. [facility] AND [id number] 17:07:00 Test Item Value Reference Range Interpretation Comments UA Mucus (test code = UA Mucus) Few /LPF [facility] AND [id number] 17:07:00 Test Item Value Reference Range Interpretation Comments UA Hyal Cast (test 4 See_Comment [Automat ed message] The code = UA Hyal Cast) system which generated this result transmit anjelica reference range : <=2. The reference range was not used to interpr et this result as randa l/abnormal. [facility] AND [id number] 17:07:00 Test Item Value Reference Range Interpretation Comments UA Urobilinogen (test code = UA <=1.0 mg/dL 0.1-1.0 Urobilinogen) [facility] AND [id number] 17:07:00 Test Item Value Reference Range Interpretation Comments UA Color (test code = Yellow *NA*(06/26/19 UA Color) 12:07 PM) [facility] AND [id number] 17:07:00 Test Item Value Reference Range Interpretation Comments UA Turbidity (test code Marked *ABN*(06/26/19 = UA Turbidity) 12:07 PM) [facility] AND [id number] 17:07:00 Test Item Value Reference Range Interpretation Comments UA Spec Grav (test code = UA Spec 1.024 1 Grav) [facility] AND [id number] 17:07:00 Test Item Value Reference Range Interpretation Comments UA pH (test code = UA pH) 5.0 1 5.0-8.0 [facility] AND [id number] 17:07:00 Test Item Value Reference Range Interpretation Comments UA Protein (test code = UA >=300 mg/dL Protein) [facility] AND [id number] 17:07:00 Test Item Value Reference Range Interpretation Comments UA Glucose (test code = UA Glucose) 50 mg/dL [facility] AND [id number] 17:07:00 Test Item Value Reference Range Interpretation Comments UA Ketones (test code = UA Negative mg/dL Ketones) [facility] AND [id number] 17:07:00 Test Item Value Reference Range Interpretation Comments UA Bili (test code = Negative *NA*(06/26/19 UA Bili) 12:07 PM) [facility] AND [id number] 17:07:00 Test Item Value Reference Range Interpretation Comments UA Blood (test code = Negative (06/26/19 12:07 UA Blood) PM) [facility] AND [id number] 17:07:00 Test Item Value Reference Range Interpretation Comments UA Nitrite (test code Negative (06/26/19 12:07 = UA Nitrite) PM) [facility] AND [id number] 17:07:00 Test Item Value Reference Range Interpretation Comments UA Leuk Est (test Negative (06/26/19 12:07 code = UA Leuk Est) PM) [facility] AND [id number] 17:07:00 Test Item Value Reference Range Interpretation Comments UA Sq Epi (test code = UA Sq Occasional /LPF Epi) [facility] AND [id number] 17:07:00 Test Item Value Reference Range Interpretation Comments UA WBC (test code = 4 See_Comment [Automa anjelica message] The UA WBC) system which ge nerated this result transmit anjelica reference range : <=5. The reference range was not used to interpr et this result as randa l/abnormal. [facility] AND [id number] 17:07:00 Test Item Value Reference Range Interpretation Comments UA RBC (test code = 6 See_Comment [Automa anjelica message] The UA RBC) system which ge nerated this result transmit anjelica reference range : <=2. The reference range was not used to interpr et this result as randa l/abnormal. [facility] AND [id number] 17:07:00 Test Item Value Reference Range Interpretation Comments UA Mucus (test code = UA Mucus) Few /LPF [facility] AND [id number] 17:07:00 Test Item Value Reference Range Interpretation Comments UA Hyal Cast (test 4 See_Comment [Automat ed message] The code = UA Hyal Cast) system which generated this result transmit anjelica reference range : <=2. The reference range was not used to interpr et this result as randa l/abnormal. [facility] AND [id number] 17:07:00 Test Item Value Reference Range Interpretation Comments UA Urobilinogen (test code = UA <=1.0 mg/dL 0.1-1.0 Urobilinogen) [facility] AND [id number] 17:07:00 Test Item Value Reference Range Interpretation Comments UA Color (test code = Yellow *NA*(06/26/19 UA Color) 12:07 PM) [facility] AND [id number] 17:07:00 Test Item Value Reference Range Interpretation Comments UA Turbidity (test code Marked *ABN*(06/26/19 = UA Turbidity) 12:07 PM) [facility] AND [id number] 17:07:00 Test Item Value Reference Range Interpretation Comments UA Spec Grav (test code = UA Spec 1.024 1 Grav) [facility] AND [id number] 17:07:00 Test Item Value Reference Range Interpretation Comments UA pH (test code = UA pH) 5.0 1 5.0-8.0 [facility] AND [id number] 17:07:00 Test Item Value Reference Range Interpretation Comments UA Protein (test code = UA >=300 mg/dL Protein) [facility] AND [id number] 17:07:00 Test Item Value Reference Range Interpretation Comments UA Glucose (test code = UA Glucose) 50 mg/dL [facility] AND [id number] 17:07:00 Test Item Value Reference Range Interpretation Comments UA Ketones (test code = UA Negative mg/dL Ketones) [facility] AND [id number] 17:07:00 Test Item Value Reference Range Interpretation Comments UA Bili (test code = Negative *NA*(06/26/19 UA Bili) 12:07 PM) [facility] AND [id number] 17:07:00 Test Item Value Reference Range Interpretation Comments UA Blood (test code = Negative (06/26/19 12:07 UA Blood) PM) [facility] AND [id number] 17:07:00 Test Item Value Reference Range Interpretation Comments UA Nitrite (test code Negative (06/26/19 12:07 = UA Nitrite) PM) [facility] AND [id number] 17:07:00 Test Item Value Reference Range Interpretation Comments UA Leuk Est (test Negative (06/26/19 12:07 code = UA Leuk Est) PM) [facility] AND [id number] 17:07:00 Test Item Value Reference Range Interpretation Comments UA Sq Epi (test code = UA Sq Occasional /LPF Epi) [facility] AND [id number] 17:07:00 Test Item Value Reference Range Interpretation Comments UA WBC (test code = 4 See_Comment [Automa anjelica message] The UA WBC) system which ge nerated this result transmit anjelica reference range : <=5. The reference range was not used to interpr et this result as randa l/abnormal. [facility] AND [id number] 17:07:00 Test Item Value Reference Range Interpretation Comments UA RBC (test code = 6 See_Comment [Automa anjelica message] The UA RBC) system which ge nerated this result transmit anjelica reference range : <=2. The reference range was not used to interpr et this result as randa l/abnormal. [facility] AND [id number] 17:07:00 Test Item Value Reference Range Interpretation Comments UA Mucus (test code = UA Mucus) Few /LPF [facility] AND [id number] 17:07:00 Test Item Value Reference Range Interpretation Comments UA Hyal Cast (test 4 See_Comment [Automat ed message] The code = UA Hyal Cast) system which generated this result transmit anjelica reference range : <=2. The reference range was not used to interpr et this result as randa l/abnormal. [facility] AND [id number] 17:07:00 Test Item Value Reference Range Interpretation Comments UA Urobilinogen (test code = UA <=1.0 mg/dL 0.1-1.0 Urobilinogen) [facility] CenterCARTu Otro SuperAC [id number] 16:36:00 Test Item Value Reference Range Interpretation Comments Troponin-I (test code no gt See_Comment [Auto mated message] The = Troponin-I) system which g enerated this result transmit anjelica reference range : <=0.40. The reference r david was not used to interpr et this result as randa l/abnormal. [facility] CenterCar reviews [id number] 16:36:00 Test Item Value Reference Range Interpretation Comments BNP (test code = BNP) 178 [facility] [id number] 16:36:00 Test Item Value Reference Range Interpretation Comments Glucose Lvl (test code = Glucose Lvl) 126 70-99 [facility] [id number] 16:36:00 Test Item Value Reference Range Interpretation Comments BUN (test code = BUN) 7 7-[address] [facility] [address] Center[facility] [id number] 16:36:00 Test Item Value Reference Range Interpretation Comments Creatinine Lvl (test code = Creatinine 0.86 0.50-1.40 Lvl) [facility] [id number] 16:36:00 Test Item Value Reference Range Interpretation Comments Sodium Lvl (test code = Sodium Lvl) 140 135-145 [facility] [id number] 16:36:00 Test Item Value Reference Range Interpretation Comments Potassium Lvl (test code = Potassium 4.5 3.5-5.1 Lvl) [facility] [id number] 16:36:00 Test Item Value Reference Range Interpretation Comments Chloride Lvl (test code = Chloride Lvl) 105 95-109 [facility] [id number] 16:36:00 Test Item Value Reference Range Interpretation Comments CO2 (test code = CO2) 28 24-[address] [facility] [id number] 16:36:00 Test Item Value Reference Range Interpretation Comments Calcium Lvl (test code = Calcium Lvl) 9.1 8.5-10.[address] [facility] [address] [id number] 16:36:00 Test Item Value Reference Range Interpretation Comments Total Protein (test code = Total 7.4 6.4-8.4 Protein) [facility]2019-09-10 16:36:00 Test Item Value Reference Range Interpretation Comments Albumin Lvl (test code = Albumin Lvl) 3.5 3.5-5.0 [facility]2019-09-10 16:36:00 Test Item Value Reference Range Interpretation Comments ALT (test code = ALT) 67 See_Comment [Auto mated message] The system which ge nerated this result transmit anjelica reference range : <=65. The reference range was not used to interpr et this result as randa l/abnormal. [facility]2019-09-10 16:36:00 Test Item Value Reference Range Interpretation Comments AST (test code = AST) 38 See_Comment [Auto mated message] The system which ge nerated this result transmit anjelica reference range : <=37. The reference range was not used to interpr et this result as randa l/abnormal. [facility]2019-09-10 16:36:00 Test Item Value Reference Range Interpretation Comments Alk Phos (test code = Alk Phos) 89 39-136 [facility]2019-09-10 16:36:00 Test Item Value Reference Range Interpretation Comments Bili Total (test code = Bili Total) 0.2 0.2-1.3 [facility]2019-09-10 16:36:00 Test Item Value Reference Range Interpretation Comments eGFR (test code = eGFR) 100 [facility]2019-09-10 16:36:00 Test Item Value Reference Range Interpretation Comments AGAP (test code = AGAP) 11.5 10.0-20.0 [facility]2019-09-10 16:36:00 Test Item Value Reference Range Interpretation Comments B/C Ratio (test code = B/C Ratio) 8 1 6-25 [facility]2019-09-10 16:36:00 Test Item Value Reference Range Interpretation Comments Globulin (test code = Globulin) 3.9 2.7-4.2 [facility]2019-09-10 16:36:00 Test Item Value Reference Range Interpretation Comments A/G Ratio (test code = A/G Ratio) 0.9 1 0.7-1.6 [id number] 16:36:00 Test Item Value Reference Range Interpretation Comments PT (test code = PT) 11.5 s 12.0-14.7 [facility] H[id number] 16:36:00 Test Item Value Reference Range Interpretation Comments INR (test code = INR) 0.85 1 0.85-1.17 [facility] [id number] 16:36:00 Test Item Value Reference Range Interpretation Comments PTT (test code = PTT) 27.4 s 22.9-35.8 [facility] H[id number] 16:36:00 Test Item Value Reference Range Interpretation Comments Segs (test code = Segs) 64.8 45.0-75.0 [facility] H[id number] 16:36:00 Test Item Value Reference Range Interpretation Comments Lymphocytes (test code = Lymphocytes) 26.1 20.0-40.0 [facility] H[id number] 16:36:00 Test Item Value Reference Range Interpretation Comments Monocytes (test code = Monocytes) 7.2 2.0-12.0 [facility] Hos[id number] 16:36:00 Test Item Value Reference Range Interpretation Comments Eosinophils (test code = 1.1 See_Comment [A utomated message] The Eosinophils) system which ge nerated this result tra nsmitted reference range : <=4.0. The reference r david was not used to int erpret this result as normal/abnormal . [facility] H[id number] 16:36:00 Test Item Value Reference Range Interpretation Comments Basophils (test code = 0.8 See_Comment [Aut omated message] The Basophils) system which ge nerated this result tra nsmitted reference range : <=1.0. The reference r david was not used to int erpret this result as normal/abnormal . [facility] H[id number] 16:36:00 Test Item Value Reference Range Interpretation Comments Neutrophils # (test code = Neutrophils 6.6 1.5-8.1 #) [facility] H[id number] 16:36:00 Test Item Value Reference Range Interpretation Comments Lymphocytes # (test code = Lymphocytes 2.7 1.0-5.5 #) [facility] H[id number] 16:36:00 Test Item Value Reference Range Interpretation Comments Monocytes # (test code 0.7 See_Comment [Aut omated message] The = Monocytes #) system which generated this result tra nsmitted reference range : <=0.8. The reference r david was not used to int erpret this result as normal/abnormal . [facility] [id number] 16:36:00 Test Item Value Reference Range Interpretation Comments Eosinophils # (test code 0.1 See_Comment [A utomated message] The = Eosinophils #) system whic h generated this result tra nsmitted reference range : <=0.5. The reference r david was not used to int erpret this result as normal/abnormal . [facility] HospitalZgxruzfNKKYJNREXQ1906-09-43 16:36:00 Test Item Value Reference Range Interpretation Comments Basophils # (test code 0.1 See_Comment [Aut omated message] The = Basophils #) system which generated this result tra nsmitted reference range : <=0.2. The reference r david was not used to int erpret this result as normal/abnormal . [facility] CenterEnjoi [id number] 16:36:00 Test Item Value Reference Range Interpretation Comments Troponin-I (test code no gt See_Comment [Auto mated message] The = Troponin-I) system which g enerated this result transmit anjelica reference range : <=0.40. The reference r advid was not used to interpr et this result as randa l/abnormal. [facility] CenterCar reviews [id number] 16:36:00 Test Item Value Reference Range Interpretation Comments BNP (test code = BNP) 178 [facility] [id number] 16:36:00 Test Item Value Reference Range Interpretation Comments Glucose Lvl (test code = Glucose Lvl) 126 70-99 [facility] [id number] 16:36:00 Test Item Value Reference Range Interpretation Comments BUN (test code = BUN) 7 7-22 [facility] [id number] 16:36:00 Test Item Value Reference Range Interpretation Comments Creatinine Lvl (test code = Creatinine 0.86 0.50-1.40 Lvl) [facility] [id number] 16:36:00 Test Item Value Reference Range Interpretation Comments Sodium Lvl (test code = Sodium Lvl) 140 135-145 [facility]2019-09-10 16:36:00 Test Item Value Reference Range Interpretation Comments Potassium Lvl (test code = Potassium 4.5 3.5-5.1 Lvl) [facility]2019-09-10 16:36:00 Test Item Value Reference Range Interpretation Comments Chloride Lvl (test code = Chloride Lvl) 105 95-109 [facility]2019-09-10 16:36:00 Test Item Value Reference Range Interpretation Comments CO2 (test code = CO2) 28 24-32 [facility]2019-09-10 16:36:00 Test Item Value Reference Range Interpretation Comments Calcium Lvl (test code = Calcium Lvl) 9.1 8.5-10.5 [facility]2019-09-10 16:36:00 Test Item Value Reference Range Interpretation Comments Total Protein (test code = Total 7.4 6.4-8.4 Protein) [facility]2019-09-10 16:36:00 Test Item Value Reference Range Interpretation Comments Albumin Lvl (test code = Albumin Lvl) 3.5 3.5-5.0 [facility]2019-09-10 16:36:00 Test Item Value Reference Range Interpretation Comments ALT (test code = ALT) 67 See_Comment [Auto mated message] The system which ge nerated this result transmit anjelica reference range : <=65. The reference range was not used to interpr et this result as randa l/abnormal. [facility]2019-09-10 16:36:00 Test Item Value Reference Range Interpretation Comments AST (test code = AST) 38 See_Comment [Auto mated message] The system which ge nerated this result transmit anjelica reference range : <=37. The reference range was not used to interpr et this result as randa l/abnormal. [facility]2019-09-10 16:36:00 Test Item Value Reference Range Interpretation Comments Alk Phos (test code = Alk Phos) 89 39-136 [facility]2019-09-10 16:36:00 Test Item Value Reference Range Interpretation Comments Bili Total (test code = Bili Total) 0.2 0.2-1.3 [facility]2019-09-10 16:36:00 Test Item Value Reference Range Interpretation Comments eGFR (test code = eGFR) 100 [facility]2019-09-10 16:36:00 Test Item Value Reference Range Interpretation Comments AGAP (test code = AGAP) 11.5 10.0-20.0 [facility]2019-09-10 16:36:00 Test Item Value Reference Range Interpretation Comments B/C Ratio (test code = B/C Ratio) 8 1 6-25 [facility]2019-09-10 16:36:00 Test Item Value Reference Range Interpretation Comments Globulin (test code = Globulin) 3.9 2.7-4.2 [facility]2019-09-10 16:36:00 Test Item Value Reference Range Interpretation Comments A/G Ratio (test code = A/G Ratio) 0.9 1 0.7-1.6 [facility] H[id number] 16:36:00 Test Item Value Reference Range Interpretation Comments PT (test code = PT) 11.5 s 12.0-14.7 [facility] H[id number] 16:36:00 Test Item Value Reference Range Interpretation Comments INR (test code = INR) 0.85 1 0.85-1.17 [facility] H[id number] 16:36:00 Test Item Value Reference Range Interpretation Comments PTT (test code = PTT) 27.4 s 22.9-35.8 [facility] Hos[id number] 16:36:00 Test Item Value Reference Range Interpretation Comments Segs (test code = Segs) 64.8 45.0-75.0 [facility] HospitalAyxnmttQJFCSEKEZC1966 16:36:00 Test Item Value Reference Range Interpretation Comments Lymphocytes (test code = Lymphocytes) 26.1 20.0-40.0 [facility] HospitalPhgxzwrVTMZQRRVBE7209-42-00 16:36:00 Test Item Value Reference Range Interpretation Comments Monocytes (test code = Monocytes) 7.2 2.0-12.0 [facility] Hos[id number] 16:36:00 Test Item Value Reference Range Interpretation Comments Eosinophils (test code = 1.1 See_Comment [A utomated message] The Eosinophils) system which ge nerated this result tra nsmitted reference range : <=4.0. The reference r david was not used to int erpret this result as normal/abnormal . [facility] H[id number] 16:36:00 Test Item Value Reference Range Interpretation Comments Basophils (test code = 0.8 See_Comment [Aut omated message] The Basophils) system which ge nerated this result tra nsmitted reference range : <=1.0. The reference r david was not used to int erpret this result as normal/abnormal . [facility] Hospit[id number] 16:36:00 Test Item Value Reference Range Interpretation Comments Neutrophils # (test code = Neutrophils 6.6 1.5-8.1 #) [facility] HospitalZ[id number] 16:36:00 Test Item Value Reference Range Interpretation Comments Lymphocytes # (test code = Lymphocytes 2.7 1.0-5.5 #) [facility] Hos[id number] 16:36:00 Test Item Value Reference Range Interpretation Comments Monocytes # (test code 0.7 See_Comment [Aut omated message] The = Monocytes #) system which generated this result tra nsmitted reference range : <=0.8. The reference r david was not used to int erpret this result as normal/abnormal . [facility] Hos[id number] 16:36:00 Test Item Value Reference Range Interpretation Comments Eosinophils # (test code 0.1 See_Comment [A utomated message] The = Eosinophils #) system whic h generated this result tra nsmitted reference range : <=0.5. The reference r david was not used to int erpret this result as normal/abnormal . [facility] Hospit[id number] 16:36:00 Test Item Value Reference Range Interpretation Comments Basophils # (test code 0.1 See_Comment [Aut omated message] The = Basophils #) system which generated this result tra nsmitted reference range : <=0.2. The reference r david was not used to int erpret this result as normal/abnormal . [facility] CenterCARDIAC [id number] 16:36:00 Test Item Value Reference Range Interpretation Comments Troponin-I (test code no gt See_Comment [Auto mated message] The = Troponin-I) system which g enerated this result transmit anjelica reference range : <=0.40. The reference r david was not used to interpr et this result as randa l/abnormal. [facility] CenterCARDIAC [id number] 16:36:00 Test Item Value Reference Range Interpretation Comments BNP (test code = BNP) 178 [facility]2019-09-10 16:36:00 Test Item Value Reference Range Interpretation Comments Glucose Lvl (test code = Glucose Lvl) 126 70-99 [facility]2019-09-10 16:36:00 Test Item Value Reference Range Interpretation Comments BUN (test code = BUN) 7 7-22 [facility]2019-09-10 16:36:00 Test Item Value Reference Range Interpretation Comments Creatinine Lvl (test code = Creatinine 0.86 0.50-1.40 Lvl) [facility]2019-09-10 16:36:00 Test Item Value Reference Range Interpretation Comments Sodium Lvl (test code = Sodium Lvl) 140 135-145 [facility]2019-09-10 16:36:00 Test Item Value Reference Range Interpretation Comments Potassium Lvl (test code = Potassium 4.5 3.5-5.1 Lvl) [facility]2019-09-10 16:36:00 Test Item Value Reference Range Interpretation Comments Chloride Lvl (test code = Chloride Lvl) 105 95-109 [facility]2019-09-10 16:36:00 Test Item Value Reference Range Interpretation Comments CO2 (test code = CO2) 28 24-32 [facility]2019-09-10 16:36:00 Test Item Value Reference Range Interpretation Comments Calcium Lvl (test code = Calcium Lvl) 9.1 8.5-10.5 [facility]2019-09-10 16:36:00 Test Item Value Reference Range Interpretation Comments Total Protein (test code = Total 7.4 6.4-8.4 Protein) [facility]2019-09-10 16:36:00 Test Item Value Reference Range Interpretation Comments Albumin Lvl (test code = Albumin Lvl) 3.5 3.5-5.0 [facility]2019-09-10 16:36:00 Test Item Value Reference Range Interpretation Comments ALT (test code = ALT) 67 See_Comment [Auto mated message] The system which ge nerated this result transmit anjelica reference range : <=65. The reference range was not used to interpr et this result as randa l/abnormal. [facility]2019-09-10 16:36:00 Test Item Value Reference Range Interpretation Comments AST (test code = AST) 38 See_Comment [Auto mated message] The system which ge nerated this result transmit anjelica reference range : <=37. The reference range was not used to interpr et this result as randa l/abnormal. [facility]2019-09-10 16:36:00 Test Item Value Reference Range Interpretation Comments Alk Phos (test code = Alk Phos) 89 39-136 [facility]2019-09-10 16:36:00 Test Item Value Reference Range Interpretation Comments Bili Total (test code = Bili Total) 0.2 0.2-1.3 [facility]2019-09-10 16:36:00 Test Item Value Reference Range Interpretation Comments eGFR (test code = eGFR) 100 [facility]2019-09-10 16:36:00 Test Item Value Reference Range Interpretation Comments AGAP (test code = AGAP) 11.5 10.0-20.0 [facility]2019-09-10 16:36:00 Test Item Value Reference Range Interpretation Comments B/C Ratio (test code = B/C Ratio) 8 1 6-25 [facility]2019-09-10 16:36:00 Test Item Value Reference Range Interpretation Comments Globulin (test code = Globulin) 3.9 2.7-4.2 [facility]2019-09-10 16:36:00 Test Item Value Reference Range Interpretation Comments A/G Ratio (test code = A/G Ratio) 0.9 1 0.7-1.6 [facility] Hos[id number] 16:36:00 Test Item Value Reference Range Interpretation Comments PT (test code = PT) 11.5 s 12.0-14.7 [facility] Hos[id number] 16:36:00 Test Item Value Reference Range Interpretation Comments INR (test code = INR) 0.85 1 0.85-1.17 [place] 905279-09-10 16:36:00 Test Item Value Reference Range Interpretation Comments PTT (test code = PTT) 27.4 s 22.9-35.8 [facility] Hos[id number] 16:36:00 Test Item Value Reference Range Interpretation Comments Segs (test code = Segs) 64.8 45.0-75.0 [facility] HospitalSwgxhlnUYDEXNZSXE0460-96-82 16:36:00 Test Item Value Reference Range Interpretation Comments Lymphocytes (test code = Lymphocytes) 26.1 20.0-40.0 [facility] HospitalZbkhwiiBZYQLRHWYM9127-50-49 16:36:00 Test Item Value Reference Range Interpretation Comments Monocytes (test code = Monocytes) 7.2 2.0-12.0 [facility] HospitalLynrykdUYNCCCNMLO0590-23-39 16:36:00 Test Item Value Reference Range Interpretation Comments Eosinophils (test code = 1.1 See_Comment [A utomated message] The Eosinophils) system which ge nerated this result tra nsmitted reference range : <=4.0. The reference r david was not used to int erpret this result as normal/abnormal . [facility] HospitalJxhcbgbIMXHRDEXXR0793-62-43 16:36:00 Test Item Value Reference Range Interpretation Comments Basophils (test code = 0.8 See_Comment [Aut omated message] The Basophils) system which ge nerated this result tra nsmitted reference range : <=1.0. The reference r david was not used to int erpret this result as normal/abnormal . [facility] HospitalJxxqarhGGBBMVFRAH0669-79-57 16:36:00 Test Item Value Reference Range Interpretation Comments Neutrophils # (test code = Neutrophils 6.6 1.5-8.1 #) [facility] HospitalZjjeoyjTFDUQMTRWP9604-45-89 16:36:00 Test Item Value Reference Range Interpretation Comments Lymphocytes # (test code = Lymphocytes 2.7 1.0-5.5 #) [facility] HospitalPuwvnxyULRYZYAKSK4871-20-90 16:36:00 Test Item Value Reference Range Interpretation Comments Monocytes # (test code 0.7 See_Comment [Aut omated message] The = Monocytes #) system which generated this result tra nsmitted reference range : <=0.8. The reference r david was not used to int erpret this result as normal/abnormal . [facility] HospitalNyctpskCIMCSJIBUO3699-77-06 16:36:00 Test Item Value Reference Range Interpretation Comments Eosinophils # (test code 0.1 See_Comment [A utomated message] The = Eosinophils #) system wh h generated this result tra nsmitted reference range : <=0.5. The reference r david was not used to int erpret this result as normal/abnormal . [facility] CenterOxeglfmHIVULFSWLT9941-23-31 16:36:00 Test Item Value Reference Range Interpretation Comments Basophils # (test code 0.1 See_Comment [Aut omated message] The = Basophils #) system which generated this result tra nsmitted reference range : <=0.2. The reference r david was not used to int erpret this result as normal/abnormal . [facility] [id number] 16:36:00 Test Item Value Reference Range Interpretation Comments Troponin-I (test code no gt See_Comment [Auto mated message] The = Troponin-I) system which g enerated this result transmit anjelica reference range : <=0.40. The reference r david was not used to interpr et this result as randa l/abnormal. [facility] [id number] 16:36:00 Test Item Value Reference Range Interpretation Comments BNP (test code = BNP) 178 [facility]2019-09-10 16:36:00 Test Item Value Reference Range Interpretation Comments Glucose Lvl (test code = Glucose Lvl) 126 70-99 [facility]2019-09-10 16:36:00 Test Item Value Reference Range Interpretation Comments BUN (test code = BUN) 7 7-22 [facility]2019-09-10 16:36:00 Test Item Value Reference Range Interpretation Comments Creatinine Lvl (test code = Creatinine 0.86 0.50-1.40 Lvl) [facility]2019-09-10 16:36:00 Test Item Value Reference Range Interpretation Comments Sodium Lvl (test code = Sodium Lvl) 140 135-145 [facility]2019-09-10 16:36:00 Test Item Value Reference Range Interpretation Comments Potassium Lvl (test code = Potassium 4.5 3.5-5.1 Lvl) [facility]2019-09-10 16:36:00 Test Item Value Reference Range Interpretation Comments Chloride Lvl (test code = Chloride Lvl) 105 95-109 [facility]2019-09-10 16:36:00 Test Item Value Reference Range Interpretation Comments CO2 (test code = CO2) 28 24-32 [facility]2019-09-10 16:36:00 Test Item Value Reference Range Interpretation Comments Calcium Lvl (test code = Calcium Lvl) 9.1 8.5-10.5 [facility]2019-09-10 16:36:00 Test Item Value Reference Range Interpretation Comments Total Protein (test code = Total 7.4 6.4-8.4 Protein) [facility]2019-09-10 16:36:00 Test Item Value Reference Range Interpretation Comments Albumin Lvl (test code = Albumin Lvl) 3.5 3.5-5.0 [facility]2019-09-10 16:36:00 Test Item Value Reference Range Interpretation Comments ALT (test code = ALT) 67 See_Comment [Auto mated message] The system which ge nerated this result transmit anjelica reference range : <=65. The reference range was not used to interpr et this result as randa l/abnormal. [facility]2019-09-10 16:36:00 Test Item Value Reference Range Interpretation Comments AST (test code = AST) 38 See_Comment [Auto mated message] The system which ge nerated this result transmit anjelica reference range : <=37. The reference range was not used to interpr et this result as randa l/abnormal. [facility]2019-09-10 16:36:00 Test Item Value Reference Range Interpretation Comments Alk Phos (test code = Alk Phos) 89 39-136 [facility]2019-09-10 16:36:00 Test Item Value Reference Range Interpretation Comments Bili Total (test code = Bili Total) 0.2 0.2-1.3 [facility]2019-09-10 16:36:00 Test Item Value Reference Range Interpretation Comments eGFR (test code = eGFR) 100 [facility]2019-09-10 16:36:00 Test Item Value Reference Range Interpretation Comments AGAP (test code = AGAP) 11.5 10.0-20.0 [facility]2019-09-10 16:36:00 Test Item Value Reference Range Interpretation Comments B/C Ratio (test code = B/C Ratio) 8 1 6-25 [place] [id number] 16:36:00 Test Item Value Reference Range Interpretation Comments Globulin (test code = Globulin) 3.9 2.7-4.2 [facility]2019-09-10 16:36:00 Test Item Value Reference Range Interpretation Comments A/G Ratio (test code = A/G Ratio) 0.9 1 0.7-1.6 [facility]KxiayxdJLVKWKHHVL2401-92-62 16:36:00 Test Item Value Reference Range Interpretation Comments PT (test code = PT) 11.5 s 12.0-14.7 [facility] HospitalHnpswnjAUYXAHHOAM8410-01-69 16:36:00 Test Item Value Reference Range Interpretation Comments INR (test code = INR) 0.85 1 0.85-1.17 [facility] HospitalQgdmaztWKPRSVWHKH0860-41-27 16:36:00 Test Item Value Reference Range Interpretation Comments PTT (test code = PTT) 27.4 s 22.9-35.8 [facility] HospitalKskefqtFIPMYDPAPX7431-42-12 16:36:00 Test Item Value Reference Range Interpretation Comments Segs (test code = Segs) 64.8 45.0-75.0 [facility] HospitalFvcuhgyIIOIUKIUOH4098-13-41 16:36:00 Test Item Value Reference Range Interpretation Comments Lymphocytes (test code = Lymphocytes) 26.1 20.0-40.0 [facility] HospitalOgnvohkLIERUNOKKN8230-31-22 16:36:00 Test Item Value Reference Range Interpretation Comments Monocytes (test code = Monocytes) 7.2 2.0-12.0 [facility] HospitalZcnyfdkRQJCRBOVDL4309-19-61 16:36:00 Test Item Value Reference Range Interpretation Comments Eosinophils (test code = 1.1 See_Comment [A utomated message] The Eosinophils) system which ge nerated this result tra nsmitted reference range : <=4.0. The reference r david was not used to int erpret this result as normal/abnormal . [facility] HospitalOspioijVVQCWZAKEL6255-73-18 16:36:00 Test Item Value Reference Range Interpretation Comments Basophils (test code = 0.8 See_Comment [Aut omated message] The Basophils) system which ge nerated this result tra nsmitted reference range : <=1.0. The reference r david was not used to int erpret this result as normal/abnormal . [facility] HospitalEgerhpoLXKXECKFTH9429-70-82 16:36:00 Test Item Value Reference Range Interpretation Comments Neutrophils # (test code = Neutrophils 6.6 1.5-8.1 #) [facility] HospitalVqwucpjYFMEVBAQRO3197-69-61 16:36:00 Test Item Value Reference Range Interpretation Comments Lymphocytes # (test code = Lymphocytes 2.7 1.0-5.5 #) [facility] HospitalPireqwoUMHVJHMWYL1427-95-24 16:36:00 Test Item Value Reference Range Interpretation Comments Monocytes # (test code 0.7 See_Comment [Aut omated message] The = Monocytes #) system which generated this result tra nsmitted reference range : <=0.8. The reference r david was not used to int erpret this result as normal/abnormal . [facility] HospitalTekujnpDNUPNKYLPS2077-18-44 16:36:00 Test Item Value Reference Range Interpretation Comments Eosinophils # (test code 0.1 See_Comment [A utomated message] The = Eosinophils #) system whic h generated this result tra nsmitted reference range : <=0.5. The reference r david was not used to int erpret this result as normal/abnormal . [facility] HospitalNhztllxMVUTKHPQEQ5313-84-69 16:36:00 Test Item Value Reference Range Interpretation Comments Basophils # (test code 0.1 See_Comment [Aut omated message] The = Basophils #) system which generated this result tra nsmitted reference range : <=0.2. The reference r david was not used to int erpret this result as normal/abnormal . [facility]2019-04-13 11:13:00 Test Item Value Reference Range Interpretation Comments eGFR (test code = eGFR) 98 [facility]2019-04-13 11:13:00 Test Item Value Reference Range Interpretation Comments AST (test code = AST) 14 See_Comment [Auto mated message] The system which ge nerated this result transmit anjelica reference range : <=37. The reference range was not used to interpr et this result as randa l/abnormal. [facility]2019-04-13 11:13:00 Test Item Value Reference Range Interpretation Comments ALT (test code = ALT) 37 See_Comment [Auto mated message] The system which ge nerated this result transmit anjelica reference range : <=65. The reference range was not used to interpr et this result as randa l/abnormal. [facility]2019-04-13 11:13:00 Test Item Value Reference Range Interpretation Comments Bili Total (test code = Bili Total) 0.4 0.2-1.3 [facility]2019-04-13 11:13:00 Test Item Value Reference Range Interpretation Comments Alk Phos (test code = Alk Phos) 88 39-136 [facility]2019-04-13 11:13:00 Test Item Value Reference Range Interpretation Comments Albumin Lvl (test code = Albumin Lvl) 3.3 3.5-5.0 [facility]2019-04-13 11:13:00 Test Item Value Reference Range Interpretation Comments Glucose Lvl (test code = Glucose Lvl) 348 70-99 [facility]2019-04-13 11:13:00 Test Item Value Reference Range Interpretation Comments Creatinine Lvl (test code = Creatinine 0.89 0.50-1.40 Lvl) [facility]2019-04-13 11:13:00 Test Item Value Reference Range Interpretation Comments BUN (test code = BUN) 15 7-22 [facility]2019-04-13 11:13:00 Test Item Value Reference Range Interpretation Comments Total Protein (test code = Total 6.6 6.4-8.4 Protein) [facility]2019-04-13 11:13:00 Test Item Value Reference Range Interpretation Comments CO2 (test code = CO2) 26 24-32 [facility]2019-04-13 11:13:00 Test Item Value Reference Range Interpretation Comments Calcium Lvl (test code = Calcium Lvl) 9.1 8.5-10.5 [facility]2019-04-13 11:13:00 Test Item Value Reference Range Interpretation Comments Chloride Lvl (test code = Chloride Lvl) 102 95-109 [facility]2019-04-13 11:13:00 Test Item Value Reference Range Interpretation Comments Potassium Lvl (test code = Potassium 4.1 3.5-5.1 Lvl) [facility]2019-04-13 11:13:00 Test Item Value Reference Range Interpretation Comments Sodium Lvl (test code = Sodium Lvl) 137 135-145 [facility]2019-04-13 11:13:00 Test Item Value Reference Range Interpretation Comments B/C Ratio (test code = B/C Ratio) 17 1 6-25 [place] 515929-04-13 11:13:00 Test Item Value Reference Range Interpretation Comments AGAP (test code = AGAP) 13.1 10.0-20.0 [facility]2019-04-13 11:13:00 Test Item Value Reference Range Interpretation Comments A/G Ratio (test code = A/G Ratio) 1.0 1 0.7-1.6 [facility]2019-04-13 11:13:00 Test Item Value Reference Range Interpretation Comments Globulin (test code = Globulin) 3.3 2.7-4.2 [place] [address]-04-13 11:13:00 Test Item Value Reference Range Interpretation Comments PTT (test code = PTT) 26.8 s 22.9-35.8 [place] 905279-04-13 11:13:00 Test Item Value Reference Range Interpretation Comments PT (test code = PT) 12.7 s 12.0-14.7 [place] 905279-04-13 11:13:00 Test Item Value Reference Range Interpretation Comments INR (test code = INR) 0.97 1 0.85-1.17 [place] 905279-04-13 11:13:00 Test Item Value Reference Range Interpretation Comments Neutrophils # (test code = Neutrophils 8.1 1.5-8.1 #) [facility] HospitalQpqctxrUKEIMDBWDM9301-43-67 11:13:00 Test Item Value Reference Range Interpretation Comments Lymphocytes # (test code = Lymphocytes 2.9 1.0-5.5 #) [facility] HospitalMisivpxKZZMRALHPP6068-35-64 11:13:00 Test Item Value Reference Range Interpretation Comments Monocytes # (test code 0.7 See_Comment [Aut omated message] The = Monocytes #) system which generated this result tra nsmitted reference range : <=0.8. The reference r david was not used to int erpret this result as normal/abnormal . [facility] HospitalDajeljdACLGUZWLRA7831-99-45 11:13:00 Test Item Value Reference Range Interpretation Comments Basophils # (test code 0.1 See_Comment [Aut omated message] The = Basophils #) system which generated this result tra nsmitted reference range : <=0.2. The reference r david was not used to int erpret this result as normal/abnormal . [facility] HospitalAqiingpGMYMYJJWLL0639-76-69 11:13:00 Test Item Value Reference Range Interpretation Comments Monocytes (test code = Monocytes) 6.1 2.0-12.0 [facility] HospitalQnylffbIAXOAQCPDL0978-68-16 11:13:00 Test Item Value Reference Range Interpretation Comments Eosinophils (test code = 0.1 See_Comment [A utomated message] The Eosinophils) system which ge nerated this result tra nsmitted reference range : <=4.0. The reference r david was not used to int erpret this result as normal/abnormal . [facility] HospitalXdqspmdSZJGQDXVOP2300-18-36 11:13:00 Test Item Value Reference Range Interpretation Comments Basophils (test code = 0.4 See_Comment [Aut omated message] The Basophils) system which ge nerated this result tra nsmitted reference range : <=1.0. The reference r david was not used to int erpret this result as normal/abnormal . [facility] HospitalGbtofsqNUJNRJUIQZ4874-40-89 11:13:00 Test Item Value Reference Range Interpretation Comments Segs (test code = Segs) 68.7 45.0-75.0 [facility] HospitalSskznsdXBPLVJBLZS6763-31-55 11:13:00 Test Item Value Reference Range Interpretation Comments Lymphocytes (test code = Lymphocytes) 24.7 20.0-40.0 [facility] HospitalYlxsyikPQBUCGTXOX9739-06-10 11:13:00 Test Item Value Reference Range Interpretation Comments WBC (test code = WBC) 11.8 3.7-10.4 [facility] HospitalCxjzxkyMEDDPKGGON7790-85-89 11:13:00 Test Item Value Reference Range Interpretation Comments RBC (test code = RBC) 5.21 4.70-6.10 [facility] HospitalTqnkwdqOJUTYNVURU9337-37-44 11:13:00 Test Item Value Reference Range Interpretation Comments Hgb (test code = Hgb) 15.0 14.0-18.0 [facility] HospitalSdcxypxJCPLPVJABJ5886-71-67 11:13:00 Test Item Value Reference Range Interpretation Comments Hct (test code = Hct) 45.0 42.0-54.0 [facility] HospitalXvqklqnIWPLHCBBYQ2060-02-43 11:13:00 Test Item Value Reference Range Interpretation Comments MCV (test code = MCV) 86.5 80.0-94.0 [facility] HospitalQdhgfwhMTDLRNKLLP8268-57-91 11:13:00 Test Item Value Reference Range Interpretation Comments MCH (test code = MCH) 28.7 pg 27.0-31.0 [facility] HospitalFmijyjpSVLSFKDWJR2865-61-88 11:13:00 Test Item Value Reference Range Interpretation Comments MCHC (test code = MCHC) 33.2 32.0-36.0 [facility] HospitalMxcmmbjFIWZNAFLAV5636-64-53 11:13:00 Test Item Value Reference Range Interpretation Comments RDW (test code = RDW) 14.1 11.5-14.5 [facility] HospitalDaihakdOHIQZIYWTX9385-09-54 11:13:00 Test Item Value Reference Range Interpretation Comments Platelet (test code = Platelet) 213 133-450 [facility] HospitalEjsjmuqKGWPBNDTNZ2157-79-51 11:13:00 Test Item Value Reference Range Interpretation Comments MPV (test code = MPV) 8.6 7.4-10.4 [facility]2019-04-13 11:13:00 Test Item Value Reference Range Interpretation Comments eGFR (test code = eGFR) 98 [facility]2019-04-13 11:13:00 Test Item Value Reference Range Interpretation Comments AST (test code = AST) 14 See_Comment [Auto mated message] The system which ge nerated this result transmit anjelica reference range : <=37. The reference range was not used to interpr et this result as randa l/abnormal. [facility]2019-04-13 11:13:00 Test Item Value Reference Range Interpretation Comments ALT (test code = ALT) 37 See_Comment [Auto mated message] The system which ge nerated this result transmit anjelica reference range : <=65. The reference range was not used to interpr et this result as randa l/abnormal. [facility]2019-04-13 11:13:00 Test Item Value Reference Range Interpretation Comments Bili Total (test code = Bili Total) 0.4 0.2-1.3 [facility]2019-04-13 11:13:00 Test Item Value Reference Range Interpretation Comments Alk Phos (test code = Alk Phos) 88 39-136 [facility]2019-04-13 11:13:00 Test Item Value Reference Range Interpretation Comments Albumin Lvl (test code = Albumin Lvl) 3.3 3.5-5.0 [facility]2019-04-13 11:13:00 Test Item Value Reference Range Interpretation Comments Glucose Lvl (test code = Glucose Lvl) 348 70-99 [facility]2019-04-13 11:13:00 Test Item Value Reference Range Interpretation Comments Creatinine Lvl (test code = Creatinine 0.89 0.50-1.40 Lvl) [facility]2019-04-13 11:13:00 Test Item Value Reference Range Interpretation Comments BUN (test code = BUN) 15 7-22 [facility]2019-04-13 11:13:00 Test Item Value Reference Range Interpretation Comments Total Protein (test code = Total 6.6 6.4-8.4 Protein) [facility]2019-04-13 11:13:00 Test Item Value Reference Range Interpretation Comments CO2 (test code = CO2) 26 24-32 [facility]2019-04-13 11:13:00 Test Item Value Reference Range Interpretation Comments Calcium Lvl (test code = Calcium Lvl) 9.1 8.5-10.5 [facility]2019-04-13 11:13:00 Test Item Value Reference Range Interpretation Comments Chloride Lvl (test code = Chloride Lvl) 102 95-109 [facility]2019-04-13 11:13:00 Test Item Value Reference Range Interpretation Comments Potassium Lvl (test code = Potassium 4.1 3.5-5.1 Lvl) [facility]2019-04-13 11:13:00 Test Item Value Reference Range Interpretation Comments Sodium Lvl (test code = Sodium Lvl) 137 135-145 [facility]2019-04-13 11:13:00 Test Item Value Reference Range Interpretation Comments B/C Ratio (test code = B/C Ratio) 17 1 6-25 [facility]2019-04-13 11:13:00 Test Item Value Reference Range Interpretation Comments AGAP (test code = AGAP) 13.1 10.0-20.0 [facility]2019-04-13 11:13:00 Test Item Value Reference Range Interpretation Comments A/G Ratio (test code = A/G Ratio) 1.0 1 0.7-1.6 [facility]2019-04-13 11:13:00 Test Item Value Reference Range Interpretation Comments Globulin (test code = Globulin) 3.3 2.7-4.2 [facility] HospitalIkhiassPECTLRQDAJ3818-04-83 11:13:00 Test Item Value Reference Range Interpretation Comments PTT (test code = PTT) 26.8 s 22.9-35.8 [facility] HospitalBxkotykJEWHHKANRJ7848-55-13 11:13:00 Test Item Value Reference Range Interpretation Comments PT (test code = PT) 12.7 s 12.0-14.7 [facility] HospitalPqyptjvRGSEZGCYJV1600-87-50 11:13:00 Test Item Value Reference Range Interpretation Comments INR (test code = INR) 0.97 1 0.85-1.17 [facility] HospitalKqyuyfkZJKTYLUBTP8372-54-66 11:13:00 Test Item Value Reference Range Interpretation Comments Neutrophils # (test code = Neutrophils 8.1 1.5-8.1 #) [facility] HospitalZqcpyhcYLOTAKIGFF9784-67-52 11:13:00 Test Item Value Reference Range Interpretation Comments Lymphocytes # (test code = Lymphocytes 2.9 1.0-5.5 #) [facility] HospitalAevvfsoKOOUQACRND7260-87-80 11:13:00 Test Item Value Reference Range Interpretation Comments Monocytes # (test code 0.7 See_Comment [Aut omated message] The = Monocytes #) system which generated this result tra nsmitted reference range : <=0.8. The reference r david was not used to int erpret this result as normal/abnormal . [facility] HospitalPjthcckVEXRSHBCTD7940-62-93 11:13:00 Test Item Value Reference Range Interpretation Comments Basophils # (test code 0.1 See_Comment [Aut omated message] The = Basophils #) system which generated this result tra nsmitted reference range : <=0.2. The reference r david was not used to int erpret this result as normal/abnormal . [facility] HospitalFfhxshwWPNNUKMGDW7764-71-77 11:13:00 Test Item Value Reference Range Interpretation Comments Monocytes (test code = Monocytes) 6.1 2.0-12.0 [facility] HospitalSoanztoFDQGRNETFH8570-49-54 11:13:00 Test Item Value Reference Range Interpretation Comments Eosinophils (test code = 0.1 See_Comment [A utomated message] The Eosinophils) system which ge nerated this result tra nsmitted reference range : <=4.0. The reference r david was not used to int erpret this result as normal/abnormal . [facility] HospitalRjyhlhrHTTZRCFMLB6023-64-10 11:13:00 Test Item Value Reference Range Interpretation Comments Basophils (test code = 0.4 See_Comment [Aut omated message] The Basophils) system which ge nerated this result tra nsmitted reference range : <=1.0. The reference r david was not used to int erpret this result as normal/abnormal . [facility] HospitalLxzvvjpRJZQOYRAWY2672-69-78 11:13:00 Test Item Value Reference Range Interpretation Comments Segs (test code = Segs) 68.7 45.0-75.0 [facility] HospitalWrelszbOUTBBGBSPH1303-43-22 11:13:00 Test Item Value Reference Range Interpretation Comments Lymphocytes (test code = Lymphocytes) 24.7 20.0-40.0 [facility] HospitalHakoqwtOUBCPEKQOA2041-38-17 11:13:00 Test Item Value Reference Range Interpretation Comments WBC (test code = WBC) 11.8 3.7-10.4 [facility] HospitalPiljvhuLTFUXTUHRT7493-91-64 11:13:00 Test Item Value Reference Range Interpretation Comments RBC (test code = RBC) 5.21 4.70-6.10 [facility] HospitalRhuqsbgHVRJWFYKZU5688-01-90 11:13:00 Test Item Value Reference Range Interpretation Comments Hgb (test code = Hgb) 15.0 14.0-18.0 [facility] HospitalQvqnsvhZKZTBIPFCR1896-32-47 11:13:00 Test Item Value Reference Range Interpretation Comments Hct (test code = Hct) 45.0 42.0-54.0 [facility] HospitalIhozsohXTZSTVRHFH5749-72-39 11:13:00 Test Item Value Reference Range Interpretation Comments MCV (test code = MCV) 86.5 80.0-94.0 [facility] HospitalOssirldTRISOQVQDN3019-69-46 11:13:00 Test Item Value Reference Range Interpretation Comments MCH (test code = MCH) 28.7 pg 27.0-31.0 [facility] HospitalUjbkwksATJWPBLXON0861-76-15 11:13:00 Test Item Value Reference Range Interpretation Comments MCHC (test code = MCHC) 33.2 32.0-36.0 [facility] HospitalNectdqtZMCIRJCCTO5729-32-31 11:13:00 Test Item Value Reference Range Interpretation Comments RDW (test code = RDW) 14.1 11.5-14.5 [facility] HospitalVtrjutxMXXMHXHNWM9670-37-01 11:13:00 Test Item Value Reference Range Interpretation Comments Platelet (test code = Platelet) 213 133-450 [facility] HospitalEqaeohiBNCSSFNLSX3593-35-81 11:13:00 Test Item Value Reference Range Interpretation Comments MPV (test code = MPV) 8.6 7.4-10.4 [facility]2019-04-13 11:13:00 Test Item Value Reference Range Interpretation Comments eGFR (test code = eGFR) 98 [facility]2019-04-13 11:13:00 Test Item Value Reference Range Interpretation Comments AST (test code = AST) 14 See_Comment [Auto mated message] The system which ge nerated this result transmit anjelica reference range : <=37. The reference range was not used to interpr et this result as randa l/abnormal. [facility]2019-04-13 11:13:00 Test Item Value Reference Range Interpretation Comments ALT (test code = ALT) 37 See_Comment [Auto mated message] The system which ge nerated this result transmit anjelica reference range : <=65. The reference range was not used to interpr et this result as randa l/abnormal. [facility]2019-04-13 11:13:00 Test Item Value Reference Range Interpretation Comments Bili Total (test code = Bili Total) 0.4 0.2-1.3 [facility]2019-04-13 11:13:00 Test Item Value Reference Range Interpretation Comments Alk Phos (test code = Alk Phos) 88 39-136 [facility]2019-04-13 11:13:00 Test Item Value Reference Range Interpretation Comments Albumin Lvl (test code = Albumin Lvl) 3.3 3.5-5.0 [facility]2019-04-13 11:13:00 Test Item Value Reference Range Interpretation Comments Glucose Lvl (test code = Glucose Lvl) 348 70-99 [facility]2019-04-13 11:13:00 Test Item Value Reference Range Interpretation Comments Creatinine Lvl (test code = Creatinine 0.89 0.50-1.40 Lvl) [facility]2019-04-13 11:13:00 Test Item Value Reference Range Interpretation Comments BUN (test code = BUN) 15 7-22 [place] 515929-04-13 11:13:00 Test Item Value Reference Range Interpretation Comments Total Protein (test code = Total 6.6 6.4-8.4 Protein) [facility]2019-04-13 11:13:00 Test Item Value Reference Range Interpretation Comments CO2 (test code = CO2) 26 24-32 [facility]2019-04-13 11:13:00 Test Item Value Reference Range Interpretation Comments Calcium Lvl (test code = Calcium Lvl) 9.1 8.5-10.5 [facility]2019-04-13 11:13:00 Test Item Value Reference Range Interpretation Comments Chloride Lvl (test code = Chloride Lvl) 102 95-109 [facility]2019-04-13 11:13:00 Test Item Value Reference Range Interpretation Comments Potassium Lvl (test code = Potassium 4.1 3.5-5.1 Lvl) [facility]2019-04-13 11:13:00 Test Item Value Reference Range Interpretation Comments Sodium Lvl (test code = Sodium Lvl) 137 135-145 [facility]2019-04-13 11:13:00 Test Item Value Reference Range Interpretation Comments B/C Ratio (test code = B/C Ratio) 17 1 6-25 [facility]2019-04-13 11:13:00 Test Item Value Reference Range Interpretation Comments AGAP (test code = AGAP) 13.1 10.0-20.0 [facility]2019-04-13 11:13:00 Test Item Value Reference Range Interpretation Comments A/G Ratio (test code = A/G Ratio) 1.0 1 0.7-1.6 [facility]2019-04-13 11:13:00 Test Item Value Reference Range Interpretation Comments Globulin (test code = Globulin) 3.3 2.7-4.2 [facility] HospitalGhejcjjXHFDTOWTFS0387-43-04 11:13:00 Test Item Value Reference Range Interpretation Comments PTT (test code = PTT) 26.8 s 22.9-35.8 [place] 905279-04-13 11:13:00 Test Item Value Reference Range Interpretation Comments PT (test code = PT) 12.7 s 12.0-14.7 [facility] HospitalDflukutBPYLGLPCAU4410-76-00 11:13:00 Test Item Value Reference Range Interpretation Comments INR (test code = INR) 0.97 1 0.85-1.17 [facility] HospitalPnziebvARDMZZSTBZ5041-02-37 11:13:00 Test Item Value Reference Range Interpretation Comments Neutrophils # (test code = Neutrophils 8.1 1.5-8.1 #) [facility] HospitalJbenfobSNTITWPNQR1416-82-91 11:13:00 Test Item Value Reference Range Interpretation Comments Lymphocytes # (test code = Lymphocytes 2.9 1.0-5.5 #) [facility] HospitalFblrmtuYHJUOZWYYU0360-20-99 11:13:00 Test Item Value Reference Range Interpretation Comments Monocytes # (test code 0.7 See_Comment [Aut omated message] The = Monocytes #) system which generated this result tra nsmitted reference range : <=0.8. The reference r david was not used to int erpret this result as normal/abnormal . [facility] HospitalDlwvshwWYFCPJSYWU5530-48-86 11:13:00 Test Item Value Reference Range Interpretation Comments Basophils # (test code 0.1 See_Comment [Aut omated message] The = Basophils #) system which generated this result tra nsmitted reference range : <=0.2. The reference r david was not used to int erpret this result as normal/abnormal . [facility] HospitalEyxclchVTVEQJRGCV4095-52-82 11:13:00 Test Item Value Reference Range Interpretation Comments Monocytes (test code = Monocytes) 6.1 2.0-12.0 [facility] HospitalUxkytrvDLILHUIHND6741-40-41 11:13:00 Test Item Value Reference Range Interpretation Comments Eosinophils (test code = 0.1 See_Comment [A utomated message] The Eosinophils) system which ge nerated this result tra nsmitted reference range : <=4.0. The reference r david was not used to int erpret this result as normal/abnormal . [facility] HospitalQeudznbYTPJVGATUY6086-50-60 11:13:00 Test Item Value Reference Range Interpretation Comments Basophils (test code = 0.4 See_Comment [Aut omated message] The Basophils) system which ge nerated this result tra nsmitted reference range : <=1.0. The reference r david was not used to int erpret this result as normal/abnormal . [id number] 11:13:00 Test Item Value Reference Range Interpretation Comments Segs (test code = Segs) 68.7 45.0-75.0 [facility] Hospit[id number] 11:13:00 Test Item Value Reference Range Interpretation Comments Lymphocytes (test code = Lymphocytes) 24.7 20.0-40.0 [facility] Hospit[id number] 11:13:00 Test Item Value Reference Range Interpretation Comments WBC (test code = WBC) 11.8 3.7-10.4 [facility] HospitalMegqvzzMKAAEDOSEF2042-28-38 11:13:00 Test Item Value Reference Range Interpretation Comments RBC (test code = RBC) 5.21 4.70-6.10 [facility] HospitalYwizqomVDVXFIXXTN1706-66-83 11:13:00 Test Item Value Reference Range Interpretation Comments Hgb (test code = Hgb) 15.0 14.0-18.0 [facility] HospitalHagljreHVBWNPVYCR2565-61-52 11:13:00 Test Item Value Reference Range Interpretation Comments Hct (test code = Hct) 45.0 42.0-54.0 [facility] HospitalXgmkpoiZZANNZHJZW6870-76-11 11:13:00 Test Item Value Reference Range Interpretation Comments MCV (test code = MCV) 86.5 80.0-94.0 [facility] HospitalAnagurbWVEMZYXEEX4572-29-82 11:13:00 Test Item Value Reference Range Interpretation Comments MCH (test code = MCH) 28.7 pg 27.0-31.0 [facility] HospitalNtcdthwHTSYUTEFRY7250-63-56 11:13:00 Test Item Value Reference Range Interpretation Comments MCHC (test code = MCHC) 33.2 32.0-36.0 [facility] HospitalMtribwgXLXKGGVFJQ8339-23-96 11:13:00 Test Item Value Reference Range Interpretation Comments RDW (test code = RDW) 14.1 11.5-14.5 [facility] HospitalXhdboyvFIDVDGYVIX4889-20-67 11:13:00 Test Item Value Reference Range Interpretation Comments Platelet (test code = Platelet) 213 133-450 [facility] Hos[id number] 11:13:00 Test Item Value Reference Range Interpretation Comments MPV (test code = MPV) 8.6 7.4-10.[address] [facility] [id number] 11:13:00 Test Item Value Reference Range Interpretation Comments eGFR (test code = eGFR) 98 [facility] [id number] 11:13:00 Test Item Value Reference Range Interpretation Comments AST (test code = AST) 14 See_Comment [Auto mated message] The system which ge nerated this result transmit anjelica reference range : <=37. The reference range was not used to interpr et this result as randa l/abnormal. [place] [id number] 11:13:00 Test Item Value Reference Range Interpretation Comments ALT (test code = ALT) 37 See_Comment [Auto mated message] The system which ge nerated this result transmit anjelica reference range : <=65. The reference range was not used to interpr et this result as randa l/abnormal. [facility]2019-04-13 11:13:00 Test Item Value Reference Range Interpretation Comments Bili Total (test code = Bili Total) 0.4 0.2-1.3 [place] [id number] 11:13:00 Test Item Value Reference Range Interpretation Comments Alk Phos (test code = Alk Phos) 88 39-136 [facility]2019-04-13 11:13:00 Test Item Value Reference Range Interpretation Comments Albumin Lvl (test code = Albumin Lvl) 3.3 3.5-5.0 [facility]2019-04-13 11:13:00 Test Item Value Reference Range Interpretation Comments Glucose Lvl (test code = Glucose Lvl) 348 70-99 [facility]2019-04-13 11:13:00 Test Item Value Reference Range Interpretation Comments Creatinine Lvl (test code = Creatinine 0.89 0.50-1.40 Lvl) [facility]2019-04-13 11:13:00 Test Item Value Reference Range Interpretation Comments BUN (test code = BUN) 15 7-22 [facility]2019-04-13 11:13:00 Test Item Value Reference Range Interpretation Comments Total Protein (test code = Total 6.6 6.4-8.4 Protein) [facility]2019-04-13 11:13:00 Test Item Value Reference Range Interpretation Comments CO2 (test code = CO2) 26 24-32 [place] [id number] 11:13:00 Test Item Value Reference Range Interpretation Comments Calcium Lvl (test code = Calcium Lvl) 9.1 8.5-10.5 [facility]2019-04-13 11:13:00 Test Item Value Reference Range Interpretation Comments Chloride Lvl (test code = Chloride Lvl) 102 95-109 [facility]2019-04-13 11:13:00 Test Item Value Reference Range Interpretation Comments Potassium Lvl (test code = Potassium 4.1 3.5-5.1 Lvl) [facility]2019-04-13 11:13:00 Test Item Value Reference Range Interpretation Comments Sodium Lvl (test code = Sodium Lvl) 137 135-145 [facility]2019-04-13 11:13:00 Test Item Value Reference Range Interpretation Comments B/C Ratio (test code = B/C Ratio) 17 1 6-25 [facility]2019-04-13 11:13:00 Test Item Value Reference Range Interpretation Comments AGAP (test code = AGAP) 13.1 10.0-20.0 [facility]2019-04-13 11:13:00 Test Item Value Reference Range Interpretation Comments A/G Ratio (test code = A/G Ratio) 1.0 1 0.7-1.6 [facility]2019-04-13 11:13:00 Test Item Value Reference Range Interpretation Comments Globulin (test code = Globulin) 3.3 2.7-4.2 [facility] HospitalAirmjrlUBEEADWXUX5208-69-78 11:13:00 Test Item Value Reference Range Interpretation Comments PTT (test code = PTT) 26.8 s 22.9-35.8 [facility] HospitalBqswheqXNKEENIWYW6838-85-02 11:13:00 Test Item Value Reference Range Interpretation Comments PT (test code = PT) 12.7 s 12.0-14.7 [facility] HospitalHnzfwdcWDOFASAEUC5031-25-51 11:13:00 Test Item Value Reference Range Interpretation Comments INR (test code = INR) 0.97 1 0.85-1.17 [facility] HospitalHxusqhuUQUWDMSSYD7406-18-08 11:13:00 Test Item Value Reference Range Interpretation Comments Neutrophils # (test code = Neutrophils 8.1 1.5-8.1 #) [facility] HospitalNozaavkMJXDDMPWEX9616-87-17 11:13:00 Test Item Value Reference Range Interpretation Comments Lymphocytes # (test code = Lymphocytes 2.9 1.0-5.5 #) [facility] HospitalRkxxtpdGEBJZDPUFQ3443-04-91 11:13:00 Test Item Value Reference Range Interpretation Comments Monocytes # (test code 0.7 See_Comment [Aut omated message] The = Monocytes #) system which generated this result tra nsmitted reference range : <=0.8. The reference r david was not used to int erpret this result as normal/abnormal . [facility] HospitalJwdzmphZZOLKUIQBO1579-94-56 11:13:00 Test Item Value Reference Range Interpretation Comments Basophils # (test code 0.1 See_Comment [Aut omated message] The = Basophils #) system which generated this result tra nsmitted reference range : <=0.2. The reference r david was not used to int erpret this result as normal/abnormal . [facility] HospitalGhlducuXPMMSWVIJQ1247-90-85 11:13:00 Test Item Value Reference Range Interpretation Comments Monocytes (test code = Monocytes) 6.1 2.0-12.0 [facility] HospitalQuhnxfhQSTMVRZTGG3477-82-50 11:13:00 Test Item Value Reference Range Interpretation Comments Eosinophils (test code = 0.1 See_Comment [A utomated message] The Eosinophils) system which ge nerated this result tra nsmitted reference range : <=4.0. The reference r david was not used to int erpret this result as normal/abnormal . [facility] HospitalAkpggksYHHOISVQTH5947-03-57 11:13:00 Test Item Value Reference Range Interpretation Comments Basophils (test code = 0.4 See_Comment [Aut omated message] The Basophils) system which ge nerated this result tra nsmitted reference range : <=1.0. The reference r david was not used to int erpret this result as normal/abnormal . [facility] HospitalKnwympzGVACRFLRUB8630-16-47 11:13:00 Test Item Value Reference Range Interpretation Comments Segs (test code = Segs) 68.7 45.0-75.0 [facility] HospitalGwphegaKJZCDSPEYD8597-82-55 11:13:00 Test Item Value Reference Range Interpretation Comments Lymphocytes (test code = Lymphocytes) 24.7 20.0-40.0 [facility] HospitalVdnvzflLMKEJDCQMT3033-63-28 11:13:00 Test Item Value Reference Range Interpretation Comments WBC (test code = WBC) 11.8 3.7-10.4 [facility] HospitalJehpojdFUFZIKWUIU7825-44-23 11:13:00 Test Item Value Reference Range Interpretation Comments RBC (test code = RBC) 5.21 4.70-6.10 [facility] HospitalTkdxvyiITRBWSJTTF9918-41-85 11:13:00 Test Item Value Reference Range Interpretation Comments Hgb (test code = Hgb) 15.0 14.0-18.0 [facility] HospitalQwmnzsfKMEHBOGWFU2235-11-86 11:13:00 Test Item Value Reference Range Interpretation Comments Hct (test code = Hct) 45.0 42.0-54.0 [facility] HospitalRlqlvbuBVLVIRLRII5580-52-28 11:13:00 Test Item Value Reference Range Interpretation Comments MCV (test code = MCV) 86.5 80.0-94.0 [facility] HospitalXyxrdgsYVFNQJKWRJ2753-88-31 11:13:00 Test Item Value Reference Range Interpretation Comments MCH (test code = MCH) 28.7 pg 27.0-31.0 [facility] HospitalSckvlejOLCULHAHCO7830-35-20 11:13:00 Test Item Value Reference Range Interpretation Comments MCHC (test code = MCHC) 33.2 32.0-36.0 [facility] HospitalNqszkfyZBMGHQJWVJ3551-60-11 11:13:00 Test Item Value Reference Range Interpretation Comments RDW (test code = RDW) 14.1 11.5-14.5 [facility] HospitalFhxfepaNYKAOKXQOZ0361-21-47 11:13:00 Test Item Value Reference Range Interpretation Comments Platelet (test code = Platelet) 213 133-450 [facility] HospitalOhjfibxIPFTHUBTUQ2184-12-07 11:13:00 Test Item Value Reference Range Interpretation Comments MPV (test code = MPV) 8.6 7.4-10.4 [facility] AND [id number] 20:56:00 Test Item Value Reference Range Interpretation Comments UA Sq Epi (test code = UA Sq Occasional /LPF Epi) [facility] AND [id number] 20:56:00 Test Item Value Reference Range Interpretation Comments UA Bili (test code = Negative *NA*(01/26/19 UA Bili) 3:56 PM) [facility] AND [id number] 20:56:00 Test Item Value Reference Range Interpretation Comments UA Ketones (test code = UA Ketones) 20 mg/dL [facility] AND [id number] 20:56:00 Test Item Value Reference Range Interpretation Comments UA Glucose (test code = UA Glucose) 500 mg/dL [facility] AND [id number] 20:56:00 Test Item Value Reference Range Interpretation Comments UA Leuk Est (test Negative (01/26/19 3:56 code = UA Leuk Est) PM) [facility] AND [id number] 20:56:00 Test Item Value Reference Range Interpretation Comments UA Nitrite (test code Negative (01/26/19 3:56 = UA Nitrite) PM) [facility] AND [id number] 20:56:00 Test Item Value Reference Range Interpretation Comments UA Blood (test code = Negative (01/26/19 3:56 UA Blood) PM) [facility] AND [id number] 20:56:00 Test Item Value Reference Range Interpretation Comments UA Urobilinogen (test code = UA <=1.0 mg/dL 0.1-1.0 Urobilinogen) [facility] AND [id number] 20:56:00 Test Item Value Reference Range Interpretation Comments UA Protein (test code Negative (01/26/19 3:56 = UA Protein) PM) [facility] AND [id number] 20:56:00 Test Item Value Reference Range Interpretation Comments UA pH (test code = UA pH) 7.0 1 5.0-8.0 [facility] AND [id number] 20:56:00 Test Item Value Reference Range Interpretation Comments UA Spec Grav (test code = UA Spec 1.026 1 Grav) [facility] AND [id number] 20:56:00 Test Item Value Reference Range Interpretation Comments UA Turbidity (test code = Clear (01/26/19 3:56 UA Turbidity) PM) [facility] AND [id number] 20:56:00 Test Item Value Reference Range Interpretation Comments UA Color (test code = UA Color) Ltyellow [facility] AND [id number] 20:56:00 Test Item Value Reference Range Interpretation Comments UA Sq Epi (test code = UA Sq Occasional /LPF Epi) [facility] AND [id number] 20:56:00 Test Item Value Reference Range Interpretation Comments UA Bili (test code = Negative *NA*(01/26/19 UA Bili) 3:56 PM) [facility] AND [id number] 20:56:00 Test Item Value Reference Range Interpretation Comments UA Ketones (test code = UA Ketones) 20 mg/dL [facility] AND [id number] 20:56:00 Test Item Value Reference Range Interpretation Comments UA Glucose (test code = UA Glucose) 500 mg/dL [facility] AND [id number] 20:56:00 Test Item Value Reference Range Interpretation Comments UA Leuk Est (test Negative (01/26/19 3:56 code = UA Leuk Est) PM) [facility] AND [id number] 20:56:00 Test Item Value Reference Range Interpretation Comments UA Nitrite (test code Negative (01/26/19 3:56 = UA Nitrite) PM) [facility] AND [id number] 20:56:00 Test Item Value Reference Range Interpretation Comments UA Blood (test code = Negative (01/26/19 3:56 UA Blood) PM) [facility] AND [id number] 20:56:00 Test Item Value Reference Range Interpretation Comments UA Urobilinogen (test code = UA <=1.0 mg/dL 0.1-1.0 Urobilinogen) [facility] AND [id number] 20:56:00 Test Item Value Reference Range Interpretation Comments UA Protein (test code Negative (01/26/19 3:56 = UA Protein) PM) [facility] AND [id number] 20:56:00 Test Item Value Reference Range Interpretation Comments UA pH (test code = UA pH) 7.0 1 5.0-8.0 [facility] AND [id number] 20:56:00 Test Item Value Reference Range Interpretation Comments UA Spec Grav (test code = UA Spec 1.026 1 Grav) [facility] AND [id number] 20:56:00 Test Item Value Reference Range Interpretation Comments UA Turbidity (test code = Clear (01/26/19 3:56 UA Turbidity) PM) [facility] AND [id number] 20:56:00 Test Item Value Reference Range Interpretation Comments UA Color (test code = UA Color) Ltyellow [facility] AND [id number] 20:56:00 Test Item Value Reference Range Interpretation Comments UA Sq Epi (test code = UA Sq Occasional /LPF Epi) [facility] AND [id number] 20:56:00 Test Item Value Reference Range Interpretation Comments UA Bili (test code = Negative *NA*(01/26/19 UA Bili) 3:56 PM) [facility] AND [id number] 20:56:00 Test Item Value Reference Range Interpretation Comments UA Ketones (test code = UA Ketones) 20 mg/dL [facility] AND [id number] 20:56:00 Test Item Value Reference Range Interpretation Comments UA Glucose (test code = UA Glucose) 500 mg/dL [facility] AND [id number] 20:56:00 Test Item Value Reference Range Interpretation Comments UA Leuk Est (test Negative (01/26/19 3:56 code = UA Leuk Est) PM) [facility] AND [id number] 20:56:00 Test Item Value Reference Range Interpretation Comments UA Nitrite (test code Negative (01/26/19 3:56 = UA Nitrite) PM) [facility] AND [id number] 20:56:00 Test Item Value Reference Range Interpretation Comments UA Blood (test code = Negative (01/26/19 3:56 UA Blood) PM) [facility] AND [id number] 20:56:00 Test Item Value Reference Range Interpretation Comments UA Urobilinogen (test code = UA <=1.0 mg/dL 0.1-1.0 Urobilinogen) [facility] AND [id number] 20:56:00 Test Item Value Reference Range Interpretation Comments UA Protein (test code Negative (01/26/19 3:56 = UA Protein) PM) [facility] AND [id number] 20:56:00 Test Item Value Reference Range Interpretation Comments UA pH (test code = UA pH) 7.0 1 5.0-8.0 [facility] AND [id number] 20:56:00 Test Item Value Reference Range Interpretation Comments UA Spec Grav (test code = UA Spec 1.026 1 Grav) [facility] AND [id number] 20:56:00 Test Item Value Reference Range Interpretation Comments UA Turbidity (test code = Clear (01/26/19 3:56 UA Turbidity) PM) [facility] AND [id number] 20:56:00 Test Item Value Reference Range Interpretation Comments UA Color (test code = UA Color) Ltyellow [facility] AND [id number] 20:56:00 Test Item Value Reference Range Interpretation Comments UA Sq Epi (test code = UA Sq Occasional /LPF Epi) [facility] AND [id number] 20:56:00 Test Item Value Reference Range Interpretation Comments UA Bili (test code = Negative *NA*(01/26/19 UA Bili) 3:56 PM) [facility] AND [id number] 20:56:00 Test Item Value Reference Range Interpretation Comments UA Ketones (test code = UA Ketones) 20 mg/dL [facility] AND [id number] 20:56:00 Test Item Value Reference Range Interpretation Comments UA Glucose (test code = UA Glucose) 500 mg/dL [facility] AND [id number] 20:56:00 Test Item Value Reference Range Interpretation Comments UA Leuk Est (test Negative (01/26/19 3:56 code = UA Leuk Est) PM) [facility] AND [id number] 20:56:00 Test Item Value Reference Range Interpretation Comments UA Nitrite (test code Negative (01/26/19 3:56 = UA Nitrite) PM) [facility] AND [id number] 20:56:00 Test Item Value Reference Range Interpretation Comments UA Blood (test code = Negative (01/26/19 3:56 UA Blood) PM) [facility] AND [id number] 20:56:00 Test Item Value Reference Range Interpretation Comments UA Urobilinogen (test code = UA <=1.0 mg/dL 0.1-1.0 Urobilinogen) [facility] AND [id number] 20:56:00 Test Item Value Reference Range Interpretation Comments UA Protein (test code Negative (01/26/19 3:56 = UA Protein) PM) [facility] AND [id number] 20:56:00 Test Item Value Reference Range Interpretation Comments UA pH (test code = UA pH) 7.0 1 5.0-8.0 [facility] AND [id number] 20:56:00 Test Item Value Reference Range Interpretation Comments UA Spec Grav (test code = UA Spec 1.026 1 Grav) [facility] AND [id number] 20:56:00 Test Item Value Reference Range Interpretation Comments UA Turbidity (test code = Clear (01/26/19 3:56 UA Turbidity) PM) [facility] AND [id number] 20:56:00 Test Item Value Reference Range Interpretation Comments UA Color (test code = UA Color) Ltyellow [facility] [id number] 19:28:00 Test Item Value Reference Range Interpretation Comments Troponin-I (test code no gt See_Comment [Auto mated message] The = Troponin-I) system which g enerated this result transmit anjelica reference range : <=0.40. The reference r david was not used to interpr et this result as randa l/abnormal. [facility] [id number] 19:28:00 Test Item Value Reference Range Interpretation Comments Troponin-I (test code no gt See_Comment [Auto mated message] The = Troponin-I) system which g enerated this result transmit anjelica reference range : <=0.40. The reference r david was not used to interpr et this result as randa l/abnormal. [facility] [id number] 19:28:00 Test Item Value Reference Range Interpretation Comments Troponin-I (test code no gt See_Comment [Auto mated message] The = Troponin-I) system which g enerated this result transmit anjelica reference range : <=0.40. The reference r david was not used to interpr et this result as randa l/abnormal. [facility] [id number] 19:28:00 Test Item Value Reference Range Interpretation Comments Troponin-I (test code no gt See_Comment [Auto mated message] The = Troponin-I) system which g enerated this result transmit anjelica reference range : <=0.40. The reference r david was not used to interpr et this result as randa l/abnormal. [facility] [id number] 14:30:00 Test Item Value Reference Range Interpretation Comments Valproic Acid Lvl (test code = Valproic 13 50-100 Acid Lvl) [place] [id number] 14:30:00 Test Item Value Reference Range Interpretation Comments Valproic Acid Lvl (test code = Valproic 13 50-100 Acid Lvl) [place] [id number] 14:30:00 Test Item Value Reference Range Interpretation Comments Valproic Acid Lvl (test code = Valproic 13 50-100 Acid Lvl) [place] [id number] 14:30:00 Test Item Value Reference Range Interpretation Comments Valproic Acid Lvl (test code = Valproic 13 50-100 Acid Lvl) [facility]2019-04-12 14:22:00 Test Item Value Reference Range Interpretation Comments Lactic Acid Lvl (test code = Lactic 2.8 0.5-2.2 Acid Lvl) [facility]2019-04-12 14:22:00 Test Item Value Reference Range Interpretation Comments Lactic Acid Lvl (test code = Lactic 2.8 0.5-2.2 Acid Lvl) [facility]2019-04-12 14:22:00 Test Item Value Reference Range Interpretation Comments Lactic Acid Lvl (test code = Lactic 2.8 0.5-2.2 Acid Lvl) [facility]2019-04-12 14:22:00 Test Item Value Reference Range Interpretation Comments Lactic Acid Lvl (test code = Lactic 2.8 0.5-2.2 Acid Lvl) [facility] [id number] 11:46:00 Test Item Value Reference Range Interpretation Comments Troponin-I (test code no gt See_Comment [Auto mated message] The = Troponin-I) system which g enerated this result transmit anjelica reference range : <=0.40. The reference r david was not used to interpr et this result as randa l/abnormal. [facility] [id number] 11:46:00 Test Item Value Reference Range Interpretation Comments BNP (test code = BNP) 31 [facility]2019-04-12 11:46:00 Test Item Value Reference Range Interpretation Comments Lactic Acid Lvl (test code = Lactic 2.3 0.5-2.2 Acid Lvl) [facility]2019-04-12 11:46:00 Test Item Value Reference Range Interpretation Comments Magnesium Lvl (test code = Magnesium 1.5 1.8-2.4 Lvl) [facility] [employer] [id number] 11:46:00 Test Item Value Reference Range Interpretation Comments Phosphorus (test code = Phosphorus) 3.5 2.5-4.5 [facility] [id number] 11:46:00 Test Item Value Reference Range Interpretation Comments Troponin-I (test code no gt See_Comment [Auto mated message] The = Troponin-I) system which g enerated this result transmit anjelica reference range : <=0.40. The reference r david was not used to interpr et this result as randa l/abnormal. [facility] 11:46:00 Test Item Value Reference Range Interpretation Comments BNP (test code = BNP) 31 [facility] HospitalPerformance [facility]ks Racing [id number] 11:46:00 Test Item Value Reference Range Interpretation Comments Lactic Acid Lvl (test code = Lactic 2.3 0.5-2.2 Acid Lvl) [facility] [employer] [id number] 11:46:00 Test Item Value Reference Range Interpretation Comments Magnesium Lvl (test code = Magnesium 1.5 1.8-2.4 Lvl) [facility] [employer] [id number] 11:46:00 Test Item Value Reference Range Interpretation Comments Phosphorus (test code = Phosphorus) 3.5 2.5-4.5 [facility] 11:46:00 Test Item Value Reference Range Interpretation Comments Troponin-I (test code no gt See_Comment [Auto mated message] The = Troponin-I) system which g enerated this result transmit anjelica reference range : <=0.40. The reference r david was not used to interpr et this result as randa l/abnormal. [facility] [employer]2019-04-12 11:46:00 Test Item Value Reference Range Interpretation Comments BNP (test code = BNP) 31 [facility] [employer] [id number] 11:46:00 Test Item Value Reference Range Interpretation Comments Lactic Acid Lvl (test code = Lactic 2.3 0.5-2.2 Acid Lvl) [facility] [id number] 11:46:00 Test Item Value Reference Range Interpretation Comments Magnesium Lvl (test code = Magnesium 1.5 1.8-2.4 Lvl) [facility] [id number] 11:46:00 Test Item Value Reference Range Interpretation Comments Phosphorus (test code = Phosphorus) 3.5 2.5-4.5 [facility] [id number] 11:46:00 Test Item Value Reference Range Interpretation Comments Troponin-I (test code no gt See_Comment [Auto mated message] The = Troponin-I) system which g enerated this result transmit anjelica reference range : <=0.40. The reference r david was not used to interpr et this result as randa l/abnormal. [facility] [employer] [id number] 11:46:00 Test Item Value Reference Range Interpretation Comments BNP (test code = BNP) 31 [facility] [employer] [id number] 11:46:00 Test Item Value Reference Range Interpretation Comments Lactic Acid Lvl (test code = Lactic 2.3 0.5-2.2 Acid Lvl) [facility] [employer] [id number] 11:46:00 Test Item Value Reference Range Interpretation Comments Magnesium Lvl (test code = Magnesium 1.5 1.8-2.4 Lvl) [facility] [employer] [id number] 11:46:00 Test Item Value Reference Range Interpretation Comments Phosphorus (test code = Phosphorus) 3.5 2.5-4.5 [facility] [employer] [id number] 10:08:00 Test Item Value Reference Range Interpretation Comments UDS Note (test code = See Note (01/26/19 5:08 UDS Note) AM) [facility]ang[facility]comDR[facility] [id number] 10:08:00 Test Item Value Reference Range Interpretation Comments U Phencyclidine Scr (test Negative code = U Phencyclidine *NA*(01/26/19 5:08 Scr) AM) [facility] [id number] 10:08:00 Test Item Value Reference Range Interpretation Comments U Opiate Scr (test Positive *ABN*(01/26/19 code = U Opiate Scr) 5:08 AM) [facility] HospitalD[facility]Dang.comDR[facility] [id number] 10:08:00 Test Item Value Reference Range Interpretation Comments U Cannab Scr (test Positive *ABN*(01/26/19 code = U Cannab Scr) 5:08 AM) [facility] [id number] 10:08:00 Test Item Value Reference Range Interpretation Comments U Benzodiaz Scr (test Negative *NA*(01/26/19 code = U Benzodiaz Scr) 5:08 AM) [facility] [id number] 10:08:00 Test Item Value Reference Range Interpretation Comments U Brenda Scr (test code Negative *NA*(01/26/19 = U Brenda Scr) 5:08 AM) [facility] [id number] 10:08:00 Test Item Value Reference Range Interpretation Comments U Cocaine Scr (test Negative *NA*(01/26/19 code = U Cocaine Scr) 5:08 AM) [facility] [id number] 10:08:00 Test Item Value Reference Range Interpretation Comments U Amph Scr (test code Negative *NA*(01/26/19 = U Amph Scr) 5:08 AM) [facility] [id number] 10:08:00 Test Item Value Reference Range Interpretation Comments UDS Note (test code = See Note (01/26/19 5:08 UDS Note) AM) [facility] [id number] 10:08:00 Test Item Value Reference Range Interpretation Comments U Phencyclidine Scr (test Negative code = U Phencyclidine *NA*(01/26/19 5:08 Scr) AM) [facility] [id number] 10:08:00 Test Item Value Reference Range Interpretation Comments U Opiate Scr (test Positive *ABN*(01/26/19 code = U Opiate Scr) 5:08 AM) [facility] [id number] 10:08:00 Test Item Value Reference Range Interpretation Comments U Cannab Scr (test Positive *ABN*(01/26/19 code = U Cannab Scr) 5:08 AM) [facility] [id number] 10:08:00 Test Item Value Reference Range Interpretation Comments U Benzodiaz Scr (test Negative *NA*(01/26/19 code = U Benzodiaz Scr) 5:08 AM) [facility] [id number] 10:08:00 Test Item Value Reference Range Interpretation Comments U Brenda Scr (test code Negative *NA*(01/26/19 = U Brenda Scr) 5:08 AM) [facility] [id number] 10:08:00 Test Item Value Reference Range Interpretation Comments U Cocaine Scr (test Negative *NA*(01/26/19 code = U Cocaine Scr) 5:08 AM) [facility] [id number] 10:08:00 Test Item Value Reference Range Interpretation Comments U Amph Scr (test code Negative *NA*(01/26/19 = U Amph Scr) 5:08 AM) [facility] [id number] 10:08:00 Test Item Value Reference Range Interpretation Comments UDS Note (test code = See Note (01/26/19 5:08 UDS Note) AM) [facility] [id number] 10:08:00 Test Item Value Reference Range Interpretation Comments U Phencyclidine Scr (test Negative code = U Phencyclidine *NA*(01/26/19 5:08 Scr) AM) [facility] [id number] 10:08:00 Test Item Value Reference Range Interpretation Comments U Opiate Scr (test Positive *ABN*(01/26/19 code = U Opiate Scr) 5:08 AM) [facility] [id number] 10:08:00 Test Item Value Reference Range Interpretation Comments U Cannab Scr (test Positive *ABN*(01/26/19 code = U Cannab Scr) 5:08 AM) [facility] [id number] 10:08:00 Test Item Value Reference Range Interpretation Comments U Benzodiaz Scr (test Negative *NA*(01/26/19 code = U Benzodiaz Scr) 5:08 AM) [facility] [id number] 10:08:00 Test Item Value Reference Range Interpretation Comments U Brenda Scr (test code Negative *NA*(01/26/19 = U Brenda Scr) 5:08 AM) [facility] [id number] 10:08:00 Test Item Value Reference Range Interpretation Comments U Cocaine Scr (test Negative *NA*(01/26/19 code = U Cocaine Scr) 5:08 AM) [facility] [id number] 10:08:00 Test Item Value Reference Range Interpretation Comments U Amph Scr (test code Negative *NA*(01/26/19 = U Amph Scr) 5:08 AM) [facility] [id number] 10:08:00 Test Item Value Reference Range Interpretation Comments UDS Note (test code = See Note (01/26/19 5:08 UDS Note) AM) [facility] [id number] 10:08:00 Test Item Value Reference Range Interpretation Comments U Phencyclidine Scr (test Negative code = U Phencyclidine *NA*(01/26/19 5:08 Scr) AM) [facility] [id number] 10:08:00 Test Item Value Reference Range Interpretation Comments U Opiate Scr (test Positive *ABN*(01/26/19 code = U Opiate Scr) 5:08 AM) [facility] [id number] 10:08:00 Test Item Value Reference Range Interpretation Comments U Cannab Scr (test Positive *ABN*(01/26/19 code = U Cannab Scr) 5:08 AM) [facility] [id number] 10:08:00 Test Item Value Reference Range Interpretation Comments U Benzodiaz Scr (test Negative *NA*(01/26/19 code = U Benzodiaz Scr) 5:08 AM) [facility] [id number] 10:08:00 Test Item Value Reference Range Interpretation Comments U Brenda Scr (test code Negative *NA*(01/26/19 = U Brenda Scr) 5:08 AM) [facility] [id number] 10:08:00 Test Item Value Reference Range Interpretation Comments U Cocaine Scr (test Negative *NA*(01/26/19 code = U Cocaine Scr) 5:08 AM) [facility] [id number] 10:08:00 Test Item Value Reference Range Interpretation Comments U Amph Scr (test code Negative *NA*(01/26/19 = U Amph Scr) 5:08 AM) [facility]ann[facility] [id number] 08:53:00 Test Item Value Reference Range Interpretation Comments Lactic Acid Lvl (test code = Lactic 2.5 0.5-2.2 Acid Lvl) [facility]ann[facility] [id number] 08:53:00 Test Item Value Reference Range Interpretation Comments Lactic Acid Lvl (test code = Lactic 2.5 0.5-2.2 Acid Lvl) [facility] [id number] 08:53:00 Test Item Value Reference Range Interpretation Comments Lactic Acid Lvl (test code = Lactic 2.5 0.5-2.2 Acid Lvl) [facility]2019-04-12 08:53:00 Test Item Value Reference Range Interpretation Comments Lactic Acid Lvl (test code = Lactic 2.5 0.5-2.2 Acid Lvl) [facility] [id number] 06:13:00 Test Item Value Reference Range Interpretation Comments BNP (test code = BNP) [address] [facility]CAR[facility] [id number] 06:13:00 Test Item Value Reference Range Interpretation Comments Troponin-I (test code no gt See_Comment [Auto mated message] The = Troponin-I) system which g enerated this result transmit anjelica reference range : <=0.40. The reference r david was not used to interpr et this result as randa l/abnormal. [facility]2019-04-12 06:13:00 Test Item Value Reference Range Interpretation Comments Calcium Lvl (test code = Calcium Lvl) 8.8 8.5-10.5 [facility]2019-04-12 06:13:00 Test Item Value Reference Range Interpretation Comments Chloride Lvl (test code = Chloride Lvl) 105 95-109 [facility]2019-04-12 06:13:00 Test Item Value Reference Range Interpretation Comments Potassium Lvl (test code = Potassium 3.8 3.5-5.1 Lvl) [facility]2019-04-12 06:13:00 Test Item Value Reference Range Interpretation Comments CO2 (test code = CO2) 26 24-32 [facility]2019-04-12 06:13:00 Test Item Value Reference Range Interpretation Comments eGFR (test code = eGFR) 101 [facility]2019-04-12 06:13:00 Test Item Value Reference Range Interpretation Comments Sodium Lvl (test code = Sodium Lvl) 139 135-145 [facility]2019-04-12 06:13:00 Test Item Value Reference Range Interpretation Comments Creatinine Lvl (test code = Creatinine 0.84 0.50-1.40 Lvl) [facility]2019-04-12 06:13:00 Test Item Value Reference Range Interpretation Comments BUN (test code = BUN) 7 7-22 [facility]2019-04-12 06:13:00 Test Item Value Reference Range Interpretation Comments Glucose Lvl (test code = Glucose Lvl) 254 70-99 [facility]2019-04-12 06:13:00 Test Item Value Reference Range Interpretation Comments AGAP (test code = AGAP) 11.8 10.0-20.0 [facility] H[id number] 06:13:00 Test Item Value Reference Range Interpretation Comments Segs (test code = Segs) 48.6 45.0-75.0 [facility] [id number] 06:13:00 Test Item Value Reference Range Interpretation Comments Basophils (test code = 0.9 See_Comment [Aut omated message] The Basophils) system which ge nerated this result tra nsmitted reference range : <=1.0. The reference r david was not used to int erpret this result as normal/abnormal . [facility] H[id number] 06:13:00 Test Item Value Reference Range Interpretation Comments Lymphocytes (test code = Lymphocytes) 40.0 20.0-40.0 [facility] H[id number] 06:13:00 Test Item Value Reference Range Interpretation Comments Eosinophils (test code = 2.1 See_Comment [A utomated message] The Eosinophils) system which ge nerated this result tra nsmitted reference range : <=4.0. The reference r david was not used to int erpret this result as normal/abnormal . [facility] Hos[id number] 06:13:00 Test Item Value Reference Range Interpretation Comments Monocytes (test code = Monocytes) 8.4 2.0-12.0 [facility] Hos[id number] 06:13:00 Test Item Value Reference Range Interpretation Comments Eosinophils # (test code 0.2 See_Comment [A utomated message] The = Eosinophils #) system whic h generated this result tra nsmitted reference range : <=0.5. The reference r david was not used to int erpret this result as normal/abnormal . [facility] HospitalVchegwuCLZORXMIRL2252-76-24 06:13:00 Test Item Value Reference Range Interpretation Comments Monocytes # (test code 0.7 See_Comment [Aut omated message] The = Monocytes #) system which generated this result tra nsmitted reference range : <=0.8. The reference r david was not used to int erpret this result as normal/abnormal . [facility] HospitalPczdyfkSOLPVRCGNR1265-39-30 06:13:00 Test Item Value Reference Range Interpretation Comments Basophils # (test code 0.1 See_Comment [Aut omated message] The = Basophils #) system which generated this result tra nsmitted reference range : <=0.2. The reference r david was not used to int erpret this result as normal/abnormal . [facility] HospitalFogllggVPZQZTQQTQ8973-88-60 06:13:00 Test Item Value Reference Range Interpretation Comments Lymphocytes # (test code = Lymphocytes 3.5 1.0-5.5 #) [facility] HospitalXjvfrwnKCFQNFVLDR0563-27-25 06:13:00 Test Item Value Reference Range Interpretation Comments Neutrophils # (test code = Neutrophils 4.2 1.5-8.1 #) [facility] HospitalZfydmynKSPZQVVRLW2230-00-30 06:13:00 Test Item Value Reference Range Interpretation Comments MPV (test code = MPV) 8.4 7.4-10.4 [facility] HospitalTsibqeyRJYUHOCDHU0939-00-50 06:13:00 Test Item Value Reference Range Interpretation Comments MCV (test code = MCV) 86.8 80.0-94.0 [facility] HospitalUzjribqERJPSWMNNR1756-24-54 06:13:00 Test Item Value Reference Range Interpretation Comments Hct (test code = Hct) 47.3 42.0-54.0 [facility] HospitalZljuenzWBXVJGHGWI9089-35-32 06:13:00 Test Item Value Reference Range Interpretation Comments MCH (test code = MCH) 29.0 pg 27.0-31.0 [facility] HospitalWrgnpngJVWVRUOWTS0406-00-12 06:13:00 Test Item Value Reference Range Interpretation Comments RBC (test code = RBC) 5.44 4.70-6.10 [facility] HospitalRcfzmqmSQFKYXMMBI2827-67-44 06:13:00 Test Item Value Reference Range Interpretation Comments Hgb (test code = Hgb) 15.8 14.0-18.0 [facility] HospitalAymnwdrWELDHPPXXL8356-21-93 06:13:00 Test Item Value Reference Range Interpretation Comments RDW (test code = RDW) 14.3 11.5-14.5 [facility] HospitalTzcjmxyWQPQPCUPAC6848-90-08 06:13:00 Test Item Value Reference Range Interpretation Comments MCHC (test code = MCHC) 33.4 32.0-36.0 [facility]PwbbdlfUYGWAHEVZO3460-64-35 06:13:00 Test Item Value Reference Range Interpretation Comments Platelet (test code = Platelet) 238 133-450 [facility] CenterMzuoupfXUTXFPFBHH4220-11-60 06:13:00 Test Item Value Reference Range Interpretation Comments WBC (test code = WBC) 8.7 3.7-10.[address] [facility] CenterVIR[facility] - [id number] 06:13:00 Test Item Value Reference Range Interpretation Comments Influ B (test code = Negative (01/26/19 1:13 Influ B) AM) [facility] CenterVIR[facility] - [id number] 06:13:00 Test Item Value Reference Range Interpretation Comments Influ A (test code = Negative (01/26/19 1:13 Influ A) AM) [facility] HospitalDangDang.comCARTu [facility] SuperAC [id number] 06:13:00 Test Item Value Reference Range Interpretation Comments BNP (test code = BNP) [address] [facility] CenterCARTu Otro SuperAC [id number] 06:13:00 Test Item Value Reference Range Interpretation Comments Troponin-I (test code no gt See_Comment [Auto mated message] The = Troponin-I) system which g enerated this result transmit anjelica reference range : <=0.40. The reference r david was not used to interpr et this result as randa l/abnormal. [facility] [employer] [id number] 06:13:00 Test Item Value Reference Range Interpretation Comments Calcium Lvl (test code = Calcium Lvl) 8.8 8.5-10.5 [facility] [employer] [id number] 06:13:00 Test Item Value Reference Range Interpretation Comments Chloride Lvl (test code = Chloride Lvl) 105 95-109 [facility] [employer] [id number] 06:13:00 Test Item Value Reference Range Interpretation Comments Potassium Lvl (test code = Potassium 3.8 3.5-5.1 Lvl) [facility] [id number] 06:13:00 Test Item Value Reference Range Interpretation Comments CO2 (test code = CO2) 26 24-32 [facility] [id number] 06:13:00 Test Item Value Reference Range Interpretation Comments eGFR (test code = eGFR) 101 [facility]2019-04-12 06:13:00 Test Item Value Reference Range Interpretation Comments Sodium Lvl (test code = Sodium Lvl) 139 135-145 [facility]2019-04-12 06:13:00 Test Item Value Reference Range Interpretation Comments Creatinine Lvl (test code = Creatinine 0.84 0.50-1.40 Lvl) [facility]2019-04-12 06:13:00 Test Item Value Reference Range Interpretation Comments BUN (test code = BUN) 7 7-22 [facility]2019-04-12 06:13:00 Test Item Value Reference Range Interpretation Comments Glucose Lvl (test code = Glucose Lvl) 254 70-99 [facility]2019-04-12 06:13:00 Test Item Value Reference Range Interpretation Comments AGAP (test code = AGAP) 11.8 10.0-20.0 [facility] Ho[id number] 06:13:00 Test Item Value Reference Range Interpretation Comments Segs (test code = Segs) 48.6 45.0-75.0 [facility] HospitalNigzkqtOYHOLYKNEN9143-74-44 06:13:00 Test Item Value Reference Range Interpretation Comments Basophils (test code = 0.9 See_Comment [Aut omated message] The Basophils) system which ge nerated this result tra nsmitted reference range : <=1.0. The reference r david was not used to int erpret this result as normal/abnormal . [facility] HospitalPvjdrggXTWJUVNESS6744-68-40 06:13:00 Test Item Value Reference Range Interpretation Comments Lymphocytes (test code = Lymphocytes) 40.0 20.0-40.0 [facility] HospitalYkexjvxUCLIBZEGVC1329-63-45 06:13:00 Test Item Value Reference Range Interpretation Comments Eosinophils (test code = 2.1 See_Comment [A utomated message] The Eosinophils) system which ge nerated this result tra nsmitted reference range : <=4.0. The reference r david was not used to int erpret this result as normal/abnormal . [facility] HospitalZazpsyzYRDRBGXNPU1549-95-00 06:13:00 Test Item Value Reference Range Interpretation Comments Monocytes (test code = Monocytes) 8.4 2.0-12.0 [place] [id number] 06:13:00 Test Item Value Reference Range Interpretation Comments Eosinophils # (test code 0.2 See_Comment [A utomated message] The = Eosinophils #) system whic h generated this result tra nsmitted reference range : <=0.5. The reference r david was not used to int erpret this result as normal/abnormal . [facility] HospitalZiiabwaMSWXAUXXDQ0774-97-30 06:13:00 Test Item Value Reference Range Interpretation Comments Monocytes # (test code 0.7 See_Comment [Aut omated message] The = Monocytes #) system which generated this result tra nsmitted reference range : <=0.8. The reference r david was not used to int erpret this result as normal/abnormal . [facility] HospitalOrogyqtHMULHSNXXC3351-24-52 06:13:00 Test Item Value Reference Range Interpretation Comments Basophils # (test code 0.1 See_Comment [Aut omated message] The = Basophils #) system which generated this result tra nsmitted reference range : <=0.2. The reference r david was not used to int erpret this result as normal/abnormal . [facility] HospitalPjwxradTGGGFMRAEA8003-37-90 06:13:00 Test Item Value Reference Range Interpretation Comments Lymphocytes # (test code = Lymphocytes 3.5 1.0-5.5 #) [facility] HospitalJsnertkBLDKYBBVJI6859-61-46 06:13:00 Test Item Value Reference Range Interpretation Comments Neutrophils # (test code = Neutrophils 4.2 1.5-8.1 #) [facility] HospitalByahdllKEICPPCRTG0554-34-31 06:13:00 Test Item Value Reference Range Interpretation Comments MPV (test code = MPV) 8.4 7.4-10.4 [facility] HospitalIzmqhrhNWPEVNXHTM8898-07-08 06:13:00 Test Item Value Reference Range Interpretation Comments MCV (test code = MCV) 86.8 80.0-94.0 [facility] HospitalBwiizreOZRINMKFBK7666-17-21 06:13:00 Test Item Value Reference Range Interpretation Comments Hct (test code = Hct) 47.3 42.0-54.0 [facility] HospitalNltfbtvXJKZEBKADO3368-78-67 06:13:00 Test Item Value Reference Range Interpretation Comments MCH (test code = MCH) 29.0 pg 27.0-31.0 [facility] HospitalZpktdjdFIRRWMMXIZ3538-16-62 06:13:00 Test Item Value Reference Range Interpretation Comments RBC (test code = RBC) 5.44 4.70-6.10 [facility] CenterRheisfyOUJHNNZKZD8803-91-69 06:13:00 Test Item Value Reference Range Interpretation Comments Hgb (test code = Hgb) 15.8 14.0-18.0 [facility] CenterGehpypjDFQECWHBAA0751-81-00 06:13:00 Test Item Value Reference Range Interpretation Comments RDW (test code = RDW) 14.3 11.5-14.5 [facility] CenterRuizaxaGQZDQDRXKO9635-54-31 06:13:00 Test Item Value Reference Range Interpretation Comments MCHC (test code = MCHC) 33.4 32.0-36.0 [facility] HospitalIdxkwqfPBXUJUXZYX6992-70-91 06:13:00 Test Item Value Reference Range Interpretation Comments Platelet (test code = Platelet) 238 133-450 [facility] CenterXnkkdvfVFRCNQZPGJ8263-89-13 06:13:00 Test Item Value Reference Range Interpretation Comments WBC (test code = WBC) 8.7 3.7-10.[address] CenterV[facility] - [id number] 06:13:00 Test Item Value Reference Range Interpretation Comments Influ B (test code = Negative (01/26/19 1:13 Influ B) AM) [facility] CenterV[facility] - [id number] 06:13:00 Test Item Value Reference Range Interpretation Comments Influ A (test code = Negative (01/26/19 1:13 Influ A) AM) [facility] CenterCARDIAC [id number] 06:13:00 Test Item Value Reference Range Interpretation Comments BNP (test code = BNP) [address] [facility] CenterC[facility] [id number] 06:13:00 Test Item Value Reference Range Interpretation Comments Troponin-I (test code no gt See_Comment [Auto mated message] The = Troponin-I) system which g enerated this result transmit anjelica reference range : <=0.40. The reference r david was not used to interpr et this result as randa l/abnormal. [facility] [id number] 06:13:00 Test Item Value Reference Range Interpretation Comments Calcium Lvl (test code = Calcium Lvl) 8.8 8.5-10.5 [facility] [id number] 06:13:00 Test Item Value Reference Range Interpretation Comments Chloride Lvl (test code = Chloride Lvl) 105 95-109 [facility]2019-04-12 06:13:00 Test Item Value Reference Range Interpretation Comments Potassium Lvl (test code = Potassium 3.8 3.5-5.1 Lvl) [facility]2019-04-12 06:13:00 Test Item Value Reference Range Interpretation Comments CO2 (test code = CO2) 26 24-32 [facility]2019-04-12 06:13:00 Test Item Value Reference Range Interpretation Comments eGFR (test code = eGFR) 101 [facility]2019-04-12 06:13:00 Test Item Value Reference Range Interpretation Comments Sodium Lvl (test code = Sodium Lvl) 139 135-145 [facility]2019-04-12 06:13:00 Test Item Value Reference Range Interpretation Comments Creatinine Lvl (test code = Creatinine 0.84 0.50-1.40 Lvl) [facility]2019-04-12 06:13:00 Test Item Value Reference Range Interpretation Comments BUN (test code = BUN) 7 7-22 [facility]2019-04-12 06:13:00 Test Item Value Reference Range Interpretation Comments Glucose Lvl (test code = Glucose Lvl) 254 70-99 [facility]2019-04-12 06:13:00 Test Item Value Reference Range Interpretation Comments AGAP (test code = AGAP) 11.8 10.0-20.0 [facility] HospitalZjszuxsCWHJBGEZWQ0798-49-97 06:13:00 Test Item Value Reference Range Interpretation Comments Segs (test code = Segs) 48.6 45.0-75.0 [facility] HospitalZducrgeDXYRYWFWZQ4320-99-30 06:13:00 Test Item Value Reference Range Interpretation Comments Basophils (test code = 0.9 See_Comment [Aut omated message] The Basophils) system which ge nerated this result tra nsmitted reference range : <=1.0. The reference r david was not used to int erpret this result as normal/abnormal . [facility]LtnlgevSPYPOFWYCX4012-55-84 06:13:00 Test Item Value Reference Range Interpretation Comments Lymphocytes (test code = Lymphocytes) 40.0 20.0-40.0 [facility] HospitalMdtkrwlOQJNCRUKOP0517-21-46 06:13:00 Test Item Value Reference Range Interpretation Comments Eosinophils (test code = 2.1 See_Comment [A utomated message] The Eosinophils) system which ge nerated this result tra nsmitted reference range : <=4.0. The reference r david was not used to int erpret this result as normal/abnormal . [facility] HospitalEegqojwWNVUJDULJX7563-36-35 06:13:00 Test Item Value Reference Range Interpretation Comments Monocytes (test code = Monocytes) 8.4 2.0-12.0 [facility] HospitalIxhgxcaQPAGSPXHYI5147-52-61 06:13:00 Test Item Value Reference Range Interpretation Comments Eosinophils # (test code 0.2 See_Comment [A utomated message] The = Eosinophils #) system whic h generated this result tra nsmitted reference range : <=0.5. The reference r david was not used to int erpret this result as normal/abnormal . [facility] HospitalMdmfiavFWSFTVUJZC5126-34-67 06:13:00 Test Item Value Reference Range Interpretation Comments Monocytes # (test code 0.7 See_Comment [Aut omated message] The = Monocytes #) system which generated this result tra nsmitted reference range : <=0.8. The reference r david was not used to int erpret this result as normal/abnormal . [facility] HospitalMwounpuUSVZVZARFD6972-30-44 06:13:00 Test Item Value Reference Range Interpretation Comments Basophils # (test code 0.1 See_Comment [Aut omated message] The = Basophils #) system which generated this result tra nsmitted reference range : <=0.2. The reference r david was not used to int erpret this result as normal/abnormal . [facility] HospitalGlfaukwSODWQLFRHV9469-26-55 06:13:00 Test Item Value Reference Range Interpretation Comments Lymphocytes # (test code = Lymphocytes 3.5 1.0-5.5 #) [facility] HospitalCpabgqbUIJJWUKDQJ5316-80-43 06:13:00 Test Item Value Reference Range Interpretation Comments Neutrophils # (test code = Neutrophils 4.2 1.5-8.1 #) [facility] HospitalIxwakeiNTXCCAYJPL2010-48-86 06:13:00 Test Item Value Reference Range Interpretation Comments MPV (test code = MPV) 8.4 7.4-10.4 [facility] HospitalHsodmweGTKSPUHKWJ4389-56-27 06:13:00 Test Item Value Reference Range Interpretation Comments MCV (test code = MCV) 86.8 80.0-94.0 [facility]WarqkhoPGPUJPKLXG4890-96-99 06:13:00 Test Item Value Reference Range Interpretation Comments Hct (test code = Hct) 47.3 42.0-54.0 [facility] CenterMbtojfwKEFKTIMIBY0570-89-11 06:13:00 Test Item Value Reference Range Interpretation Comments MCH (test code = MCH) 29.0 pg 27.0-31.0 [facility] CenterYljbxjqEXBZHTEQQY3052-57-67 06:13:00 Test Item Value Reference Range Interpretation Comments RBC (test code = RBC) 5.44 4.70-6.10 [facility] CenterNidfpqaFNIRLVDUXV5320-83-98 06:13:00 Test Item Value Reference Range Interpretation Comments Hgb (test code = Hgb) 15.8 14.0-18.0 [facility] CenterBbihmxeBIFEIIHRAW3175-16-37 06:13:00 Test Item Value Reference Range Interpretation Comments RDW (test code = RDW) 14.3 11.5-14.5 [facility] CenterOnawmkwHEQFNLKBHC8852-32-42 06:13:00 Test Item Value Reference Range Interpretation Comments MCHC (test code = MCHC) 33.4 32.0-36.0 [facility] CenterPmavfnlRALVHZMINQ4785-54-58 06:13:00 Test Item Value Reference Range Interpretation Comments Platelet (test code = Platelet) 238 133-450 [facility] CenterAfnyuplXZQLCIVOVU1573-59-68 06:13:00 Test Item Value Reference Range Interpretation Comments WBC (test code = WBC) 8.7 3.7-10.4 [facility] [id number] 06:13:00 Test Item Value Reference Range Interpretation Comments Influ B (test code = Negative (01/26/19 1:13 Influ B) AM) [facility] - [id number] 06:13:00 Test Item Value Reference Range Interpretation Comments Influ A (test code = Negative (01/26/19 1:13 Influ A) AM) [facility] Center[facility]ARD[facility] BIYEVXQ9081-36-97 06:13:00 Test Item Value Reference Range Interpretation Comments BNP (test code = BNP) [address] [facility] CenterCARAC HYSMBXD8570-32-41 06:13:00 Test Item Value Reference Range Interpretation Comments Troponin-I (test code no gt See_Comment [Auto mated message] The = Troponin-I) system which g enerated this result transmit anjelica reference range : <=0.40. The reference r david was not used to interpr et this result as randa l/abnormal. [facility]2019-04-12 06:13:00 Test Item Value Reference Range Interpretation Comments Calcium Lvl (test code = Calcium Lvl) 8.8 8.5-10.5 [facility]2019-04-12 06:13:00 Test Item Value Reference Range Interpretation Comments Chloride Lvl (test code = Chloride Lvl) 105 95-109 [facility]2019-04-12 06:13:00 Test Item Value Reference Range Interpretation Comments Potassium Lvl (test code = Potassium 3.8 3.5-5.1 Lvl) [facility]2019-04-12 06:13:00 Test Item Value Reference Range Interpretation Comments CO2 (test code = CO2) 26 24-32 [facility]2019-04-12 06:13:00 Test Item Value Reference Range Interpretation Comments eGFR (test code = eGFR) 101 [facility]2019-04-12 06:13:00 Test Item Value Reference Range Interpretation Comments Sodium Lvl (test code = Sodium Lvl) 139 135-145 [facility]2019-04-12 06:13:00 Test Item Value Reference Range Interpretation Comments Creatinine Lvl (test code = Creatinine 0.84 0.50-1.40 Lvl) [facility]2019-04-12 06:13:00 Test Item Value Reference Range Interpretation Comments BUN (test code = BUN) 7 7-22 [facility]2019-04-12 06:13:00 Test Item Value Reference Range Interpretation Comments Glucose Lvl (test code = Glucose Lvl) 254 70-99 [facility]2019-04-12 06:13:00 Test Item Value Reference Range Interpretation Comments AGAP (test code = AGAP) 11.8 10.0-20.0 [facility] HospitalLiozmqfBDFHUATLPZ9646-77-40 06:13:00 Test Item Value Reference Range Interpretation Comments Segs (test code = Segs) 48.6 45.0-75.0 [facility] HospitalPaekmvaTYNFZXUODP0412-20-96 06:13:00 Test Item Value Reference Range Interpretation Comments Basophils (test code = 0.9 See_Comment [Aut omated message] The Basophils) system which ge nerated this result tra nsmitted reference range : <=1.0. The reference r david was not used to int erpret this result as normal/abnormal . [facility] HospitalTmkwjnvIJGJEZQGMF7520-09-35 06:13:00 Test Item Value Reference Range Interpretation Comments Lymphocytes (test code = Lymphocytes) 40.0 20.0-40.0 [facility] HospitalRzrfxznHRFIIVXIHZ4690-32-43 06:13:00 Test Item Value Reference Range Interpretation Comments Eosinophils (test code = 2.1 See_Comment [A utomated message] The Eosinophils) system which ge nerated this result tra nsmitted reference range : <=4.0. The reference r david was not used to int erpret this result as normal/abnormal . [facility] HospitalYytwumwRMESAOJRYJ5806-68-89 06:13:00 Test Item Value Reference Range Interpretation Comments Monocytes (test code = Monocytes) 8.4 2.0-12.0 [facility] HospitalCwhzqgtWQDITGEJQZ8686-31-53 06:13:00 Test Item Value Reference Range Interpretation Comments Eosinophils # (test code 0.2 See_Comment [A utomated message] The = Eosinophils #) system the medical center h generated this result tra nsmitted reference range : <=0.5. The reference r david was not used to int erpret this result as normal/abnormal . [facility] HospitalFpyktkrBRCYCLKNOE3971-05-75 06:13:00 Test Item Value Reference Range Interpretation Comments Monocytes # (test code 0.7 See_Comment [Aut omated message] The = Monocytes #) system which generated this result tra nsmitted reference range : <=0.8. The reference r david was not used to int erpret this result as normal/abnormal . [facility] HospitalJzyaywmSFPCPINIKT1719-26-20 06:13:00 Test Item Value Reference Range Interpretation Comments Basophils # (test code 0.1 See_Comment [Aut omated message] The = Basophils #) system which generated this result tra nsmitted reference range : <=0.2. The reference r david was not used to int erpret this result as normal/abnormal . [facility] HospitalSorfbpoNSDBTFOAYB4817-52-99 06:13:00 Test Item Value Reference Range Interpretation Comments Lymphocytes # (test code = Lymphocytes 3.5 1.0-5.5 #) [facility] CenterDvjihjnOGIKOJKMSK6842-53-63 06:13:00 Test Item Value Reference Range Interpretation Comments Neutrophils # (test code = Neutrophils 4.2 1.5-8.1 #) [facility] CenterXtdmxhaYPGDQMWSLH7045-24-87 06:13:00 Test Item Value Reference Range Interpretation Comments MPV (test code = MPV) 8.4 7.4-10.4 [facility] CenterRrsjecnUHSICCACVN4365-80-49 06:13:00 Test Item Value Reference Range Interpretation Comments MCV (test code = MCV) 86.8 80.0-94.0 [facility] CenterCustdntUJRHBOSWQK7500-11-43 06:13:00 Test Item Value Reference Range Interpretation Comments Hct (test code = Hct) 47.3 42.0-54.0 [facility] CenterMrqmfnlMIILCXINZA1719-13-81 06:13:00 Test Item Value Reference Range Interpretation Comments MCH (test code = MCH) 29.0 pg 27.0-31.0 [facility] CenterSwquejaYXIBRATMQJ1168-80-75 06:13:00 Test Item Value Reference Range Interpretation Comments RBC (test code = RBC) 5.44 4.70-6.10 [facility] CenterWutvgegFFSIPUDSVO6133-43-16 06:13:00 Test Item Value Reference Range Interpretation Comments Hgb (test code = Hgb) 15.8 14.0-18.0 [facility] CenterMbgiuxpAJHXJKWGLZ7727-18-63 06:13:00 Test Item Value Reference Range Interpretation Comments RDW (test code = RDW) 14.3 11.5-14.5 [facility] CenterXcbtnzbDOVCQKDCCB8698-21-96 06:13:00 Test Item Value Reference Range Interpretation Comments MCHC (test code = MCHC) 33.4 32.0-36.0 [facility] CenterEwrqdwbYFXKMPGMSY4845-47-71 06:13:00 Test Item Value Reference Range Interpretation Comments Platelet (test code = Platelet) 238 133-450 [facility] CenterPybfswtXPTXRRDIKM6971-30-85 06:13:00 Test Item Value Reference Range Interpretation Comments WBC (test code = WBC) 8.7 3.7-10.[address] [facility] CenterVIRAL - [id number] 06:13:00 Test Item Value Reference Range Interpretation Comments Influ B (test code = Negative (01/26/19 1:13 Influ B) AM) [facility] [id number] 06:13:00 Test Item Value Reference Range Interpretation Comments Influ A (test code = Negative (01/26/19 1:13 Influ A) AM) [facility] sportif225annCARDIAC OSWSZJN4996-31-08 21:36:00 Test Item Value Reference Range Interpretation Comments Troponin-I (test code no gt See_Comment [Auto mated message] The = Troponin-I) system which g enerated this result transmit anjelica reference range : <=0.40. The reference r david was not used to interpr et this result as randa l/abnormal. [facility] sportif225annCARTu Otro SuperAC [id number] 21:36:00 Test Item Value Reference Range Interpretation Comments BNP (test code = BNP) 7 [facility] [employer] [id number] 21:36:00 Test Item Value Reference Range Interpretation Comments Lipase Lvl (test code = Lipase Lvl) 147 73-393 [facility] [employer] [id number] 21:36:00 Test Item Value Reference Range Interpretation Comments B/C Ratio (test code = B/C Ratio) 13 6-25 [facility] [employer] [id number] 21:36:00 Test Item Value Reference Range Interpretation Comments AGAP (test code = AGAP) 10.9 10.0-20.0 [facility] [employer] [id number] 21:36:00 Test Item Value Reference Range Interpretation Comments A/G Ratio (test code = A/G Ratio) 1.0 0.7-1.6 [facility] [employer] [id number] 21:36:00 Test Item Value Reference Range Interpretation Comments Globulin (test code = Globulin) 3.7 2.7-4.2 [facility] [employer] [id number] 21:36:00 Test Item Value Reference Range Interpretation Comments eGFR (test code = eGFR) 103 [facility] [employer] [id number] 21:36:00 Test Item Value Reference Range Interpretation Comments Bili Total (test code = Bili Total) 0.3 0.2-1.3 [facility] [employer] [id number] 21:36:00 Test Item Value Reference Range Interpretation Comments Alk Phos (test code = Alk Phos) 109 39-136 [facility] [employer] [id number] 21:36:00 Test Item Value Reference Range Interpretation Comments ALT (test code = ALT) 33 See_Comment [Auto mated message] The system which ge nerated this result transmit anjelica reference range : <=65. The reference range was not used to interpr et this result as randa l/abnormal. [facility]2017-11-12 21:36:00 Test Item Value Reference Range Interpretation Comments AST (test code = AST) 14 See_Comment [Auto mated message] The system which ge nerated this result transmit anjelica reference range : <=37. The reference range was not used to interpr et this result as randa l/abnormal. [facility]2017-11-12 21:36:00 Test Item Value Reference Range Interpretation Comments Albumin Lvl (test code = Albumin Lvl) 3.6 3.5-5.0 [facility]2017-11-12 21:36:00 Test Item Value Reference Range Interpretation Comments Total Protein (test code = Total 7.3 6.4-8.4 Protein) [facility]2017-11-12 21:36:00 Test Item Value Reference Range Interpretation Comments Calcium Lvl (test code = Calcium Lvl) 9.1 8.5-10.5 [facility]2017-11-12 21:36:00 Test Item Value Reference Range Interpretation Comments Sodium Lvl (test code = Sodium Lvl) 137 135-145 [facility]2017-11-12 21:36:00 Test Item Value Reference Range Interpretation Comments BUN (test code = BUN) 11 7-22 [facility]2017-11-12 21:36:00 Test Item Value Reference Range Interpretation Comments Creatinine Lvl (test code = Creatinine 0.82 0.50-1.40 Lvl) [facility]2017-11-12 21:36:00 Test Item Value Reference Range Interpretation Comments CO2 (test code = CO2) 32 24-32 [facility]2017-11-12 21:36:00 Test Item Value Reference Range Interpretation Comments Chloride Lvl (test code = Chloride Lvl) 98 95-109 [facility]2017-11-12 21:36:00 Test Item Value Reference Range Interpretation Comments Potassium Lvl (test code = Potassium 3.9 3.5-5.1 Lvl) [place] 515927-11-12 21:36:00 Test Item Value Reference Range Interpretation Comments Glucose Lvl (test code = Glucose Lvl) 134 70-99 [facility] HospitalPeocggaEFNSEZKCDW0104-14-19 21:36:00 Test Item Value Reference Range Interpretation Comments MCV (test code = MCV) 83.7 80.0-94.0 [facility] HospitalKtgmjlnNAXJIECFAQ4732-18-88 21:36:00 Test Item Value Reference Range Interpretation Comments Hct (test code = Hct) 45.5 42.0-54.0 [facility] HospitalRhbtrnsRVMMRNHLAB4126-42-95 21:36:00 Test Item Value Reference Range Interpretation Comments RDW (test code = RDW) 14.4 11.5-14.5 [facility] HospitalGmmhydnMGBRCIFAKX8977-57-87 21:36:00 Test Item Value Reference Range Interpretation Comments MCHC (test code = MCHC) 33.2 32.0-36.0 [facility] HospitalGmvsgtgTOLATJCHJV9082-99-73 21:36:00 Test Item Value Reference Range Interpretation Comments MCH (test code = MCH) 27.8 pg 27.0-31.0 [facility] HospitalKdestimJNUQXNBOHG8364-61-57 21:36:00 Test Item Value Reference Range Interpretation Comments Platelet (test code = Platelet) 234 133-450 [facility] HospitalGhfxjjoBNPZLSJESW9078-12-54 21:36:00 Test Item Value Reference Range Interpretation Comments MPV (test code = MPV) 8.2 7.4-10.4 [facility] HospitalQflryfjNHPKIABPRB7375-06-63 21:36:00 Test Item Value Reference Range Interpretation Comments WBC (test code = WBC) 6.8 3.7-10.4 [facility] HospitalXmgiocoLMZHGGRIEK2936-60-02 21:36:00 Test Item Value Reference Range Interpretation Comments RBC (test code = RBC) 5.44 4.70-6.10 [facility] HospitalXddhtrfVOGUHWMIFL2180-85-50 21:36:00 Test Item Value Reference Range Interpretation Comments Hgb (test code = Hgb) 15.1 14.0-18.0 [facility] HospitalHyruiqgCJIURLELPW7801-22-16 21:36:00 Test Item Value Reference Range Interpretation Comments Eosinophils # (test code 0.4 See_Comment [A utomated message] The = Eosinophils #) system the medical center h generated this result tra nsmitted reference range : <=0.5. The reference r david was not used to int erpret this result as normal/abnormal . [facility] HospitalKqywbgqWRFPADAVSX1480-86-32 21:36:00 Test Item Value Reference Range Interpretation Comments Monocytes # (test code 0.8 See_Comment [Aut omated message] The = Monocytes #) system which generated this result tra nsmitted reference range : <=0.8. The reference r david was not used to int erpret this result as normal/abnormal . [facility] HospitalLmvbsypIBYCKSVGBE6942-33-01 21:36:00 Test Item Value Reference Range Interpretation Comments Lymphocytes # (test code = Lymphocytes 3.2 1.0-5.5 #) [facility] HospitalGyxgregOAHRXUUXVE3679-82-08 21:36:00 Test Item Value Reference Range Interpretation Comments Basophils # (test code 0.1 See_Comment [Aut omated message] The = Basophils #) system which generated this result tra nsmitted reference range : <=0.2. The reference r david was not used to int erpret this result as normal/abnormal . [facility] HospitalOxqyhfjZFOZAABGJH3594-21-96 21:36:00 Test Item Value Reference Range Interpretation Comments Segs (test code = Segs) 36.0 45.0-75.0 [facility] HospitalXkwfrhuZDUXAIXVCB2721-51-63 21:36:00 Test Item Value Reference Range Interpretation Comments Segs-Bands # (test code = Segs-Bands #) 2.5 1.5-8.1 [facility] HospitalRixpowyZGWSWNJTIL5408-33-60 21:36:00 Test Item Value Reference Range Interpretation Comments Basophils (test code = 1.2 See_Comment [Aut omated message] The Basophils) system which ge nerated this result tra nsmitted reference range : <=1.0. The reference r david was not used to int erpret this result as normal/abnormal . [facility] HospitalBbqluviHBSVGSJDCE1803-42-80 21:36:00 Test Item Value Reference Range Interpretation Comments Eosinophils (test code = 5.3 See_Comment [A utomated message] The Eosinophils) system which ge nerated this result tra nsmitted reference range : <=4.0. The reference r david was not used to int erpret this result as normal/abnormal . [facility] HospitalKvizynwNAFRYEDGMI2771-90-70 21:36:00 Test Item Value Reference Range Interpretation Comments Monocytes (test code = Monocytes) 11.1 2.0-12.0 [facility] HospitalBvbrpscKLGJGYYBLH7740-10-84 21:36:00 Test Item Value Reference Range Interpretation Comments Lymphocytes (test code = Lymphocytes) 46.4 20.0-40.0 [facility] HospitalannCARDIAC IDGOMQM0543-22-29 21:36:00 Test Item Value Reference Range Interpretation Comments Troponin-I (test code no gt See_Comment [Auto mated message] The = Troponin-I) system which g enerated this result transmit anjelica reference range : <=0.40. The reference r david was not used to interpr et this result as randa l/abnormal. [facility] HospitalFigleaves.com [id number] 21:36:00 Test Item Value Reference Range Interpretation Comments BNP (test code = BNP) [address] [facility] [id number] 21:36:00 Test Item Value Reference Range Interpretation Comments Lipase Lvl (test code = Lipase Lvl) 147 73-393 [facility] HospitalPerformance [employer] Racing [id number] 21:36:00 Test Item Value Reference Range Interpretation Comments B/C Ratio (test code = B/C Ratio) 13 6-25 [facility] [id number] 21:36:00 Test Item Value Reference Range Interpretation Comments AGAP (test code = AGAP) 10.9 10.0-20.0 [facility] [id number] 21:36:00 Test Item Value Reference Range Interpretation Comments A/G Ratio (test code = A/G Ratio) 1.0 0.7-1.6 [facility] [employer] [id number] 21:36:00 Test Item Value Reference Range Interpretation Comments Globulin (test code = Globulin) 3.7 2.7-4.2 [facility] [employer] [id number] 21:36:00 Test Item Value Reference Range Interpretation Comments eGFR (test code = eGFR) 103 [facility] [employer] [id number] 21:36:00 Test Item Value Reference Range Interpretation Comments Bili Total (test code = Bili Total) 0.3 0.2-1.3 [facility] [employer] [id number] 21:36:00 Test Item Value Reference Range Interpretation Comments Alk Phos (test code = Alk Phos) 109 39-136 [facility]2017-11-12 21:36:00 Test Item Value Reference Range Interpretation Comments ALT (test code = ALT) 33 See_Comment [Auto mated message] The system which ge nerated this result transmit anjelica reference range : <=65. The reference range was not used to interpr et this result as randa l/abnormal. [facility]2017-11-12 21:36:00 Test Item Value Reference Range Interpretation Comments AST (test code = AST) 14 See_Comment [Auto mated message] The system which ge nerated this result transmit anjelica reference range : <=37. The reference range was not used to interpr et this result as randa l/abnormal. [facility]2017-11-12 21:36:00 Test Item Value Reference Range Interpretation Comments Albumin Lvl (test code = Albumin Lvl) 3.6 3.5-5.0 [facility]2017-11-12 21:36:00 Test Item Value Reference Range Interpretation Comments Total Protein (test code = Total 7.3 6.4-8.4 Protein) [facility]2017-11-12 21:36:00 Test Item Value Reference Range Interpretation Comments Calcium Lvl (test code = Calcium Lvl) 9.1 8.5-10.5 [facility]2017-11-12 21:36:00 Test Item Value Reference Range Interpretation Comments Sodium Lvl (test code = Sodium Lvl) 137 135-145 [facility]2017-11-12 21:36:00 Test Item Value Reference Range Interpretation Comments BUN (test code = BUN) 11 7-22 [facility]2017-11-12 21:36:00 Test Item Value Reference Range Interpretation Comments Creatinine Lvl (test code = Creatinine 0.82 0.50-1.40 Lvl) [facility]2017-11-12 21:36:00 Test Item Value Reference Range Interpretation Comments CO2 (test code = CO2) 32 24-32 [facility]2017-11-12 21:36:00 Test Item Value Reference Range Interpretation Comments Chloride Lvl (test code = Chloride Lvl) 98 95-109 [facility]2017-11-12 21:36:00 Test Item Value Reference Range Interpretation Comments Potassium Lvl (test code = Potassium 3.9 3.5-5.1 Lvl) [facility]2017-11-12 21:36:00 Test Item Value Reference Range Interpretation Comments Glucose Lvl (test code = Glucose Lvl) 134 70-99 [facility] HospitalHmhmxkoSBPFUMEALR4322-29-80 21:36:00 Test Item Value Reference Range Interpretation Comments MCV (test code = MCV) 83.7 80.0-94.0 [facility] HospitalCtzeetdGYYLFYPXYU8032-69-71 21:36:00 Test Item Value Reference Range Interpretation Comments Hct (test code = Hct) 45.5 42.0-54.0 [facility] HospitalNpovgomDVFQQCRSJC0089-70-65 21:36:00 Test Item Value Reference Range Interpretation Comments RDW (test code = RDW) 14.4 11.5-14.5 [facility] HospitalHlnladsUQBEHLWIAE5889-31-24 21:36:00 Test Item Value Reference Range Interpretation Comments MCHC (test code = MCHC) 33.2 32.0-36.0 [facility] HospitalLcruysgNFNMSKNSBY3560-75-56 21:36:00 Test Item Value Reference Range Interpretation Comments MCH (test code = MCH) 27.8 pg 27.0-31.0 [facility] HospitalBmbvkvzMVRUINRUFU6708-81-16 21:36:00 Test Item Value Reference Range Interpretation Comments Platelet (test code = Platelet) 234 133-450 [facility] HospitalAasvvumAUDOEQQCIZ0899-43-47 21:36:00 Test Item Value Reference Range Interpretation Comments MPV (test code = MPV) 8.2 7.4-10.4 [facility]TnpermbLJGZJRREQW1117-48-77 21:36:00 Test Item Value Reference Range Interpretation Comments WBC (test code = WBC) 6.8 3.7-10.4 [facility] HospitalSlczcgjAPVGDEHDHB4763-36-03 21:36:00 Test Item Value Reference Range Interpretation Comments RBC (test code = RBC) 5.44 4.70-6.10 [facility] HospitalQecicijYTEUQJZLST9094-15-42 21:36:00 Test Item Value Reference Range Interpretation Comments Hgb (test code = Hgb) 15.1 14.0-18.0 [facility] HospitalZkvuuikDTQIVWIMBO9491-64-53 21:36:00 Test Item Value Reference Range Interpretation Comments Eosinophils # (test code 0.4 See_Comment [A utomated message] The = Eosinophils #) system whic h generated this result tra nsmitted reference range : <=0.5. The reference r david was not used to int erpret this result as normal/abnormal . [facility] HospitalMghbnfvSUZLGSOMYV5805-19-64 21:36:00 Test Item Value Reference Range Interpretation Comments Monocytes # (test code 0.8 See_Comment [Aut omated message] The = Monocytes #) system which generated this result tra nsmitted reference range : <=0.8. The reference r david was not used to int erpret this result as normal/abnormal . [facility] HospitalFmtpabzWDCXKMUBHD5386-80-80 21:36:00 Test Item Value Reference Range Interpretation Comments Lymphocytes # (test code = Lymphocytes 3.2 1.0-5.5 #) [facility] HospitalPsjbfnpDITTYCYJZL7812-97-93 21:36:00 Test Item Value Reference Range Interpretation Comments Basophils # (test code 0.1 See_Comment [Aut omated message] The = Basophils #) system which generated this result tra nsmitted reference range : <=0.2. The reference r david was not used to int erpret this result as normal/abnormal . [facility] HospitalGrkrcsrPVEVXBAHZJ1495-69-30 21:36:00 Test Item Value Reference Range Interpretation Comments Segs (test code = Segs) 36.0 45.0-75.0 [facility] HospitalUebhvpyETXLKJSUVW4824-98-41 21:36:00 Test Item Value Reference Range Interpretation Comments Segs-Bands # (test code = Segs-Bands #) 2.5 1.5-8.1 [facility] HospitalKfebhrpVPBANOZTUZ7229-35-21 21:36:00 Test Item Value Reference Range Interpretation Comments Basophils (test code = 1.2 See_Comment [Aut omated message] The Basophils) system which ge nerated this result tra nsmitted reference range : <=1.0. The reference r david was not used to int erpret this result as normal/abnormal . [facility] HospitalJiinbucXAIWIOCSYU4396-88-78 21:36:00 Test Item Value Reference Range Interpretation Comments Eosinophils (test code = 5.3 See_Comment [A utomated message] The Eosinophils) system which ge nerated this result tra nsmitted reference range : <=4.0. The reference r david was not used to int erpret this result as normal/abnormal . [facility] HospitalUvdsdqrMQOAWVXIEL9333-83-64 21:36:00 Test Item Value Reference Range Interpretation Comments Monocytes (test code = Monocytes) 11.1 2.0-12.0 [facility]XatquxwBFHWBTVVMN5569-33-53 21:36:00 Test Item Value Reference Range Interpretation Comments Lymphocytes (test code = Lymphocytes) 46.4 20.0-40.[address] [facility] CenterCARAC NZGRVUI7598-75-58 21:36:00 Test Item Value Reference Range Interpretation Comments Troponin-I (test code no gt See_Comment [Auto mated message] The = Troponin-I) system which g enerated this result transmit anjelica reference range : <=0.40. The reference r david was not used to interpr et this result as randa l/abnormal. [facility] [id number] 21:36:00 Test Item Value Reference Range Interpretation Comments BNP (test code = BNP) 7 [facility]2017-11-12 21:36:00 Test Item Value Reference Range Interpretation Comments Lipase Lvl (test code = Lipase Lvl) 147 73-393 [facility]2017-11-12 21:36:00 Test Item Value Reference Range Interpretation Comments B/C Ratio (test code = B/C Ratio) 13 6-[address] [facility] YLULU7900-05-07 21:36:00 Test Item Value Reference Range Interpretation Comments AGAP (test code = AGAP) 10.9 10.0-20.0 [facility]2017-11-12 21:36:00 Test Item Value Reference Range Interpretation Comments A/G Ratio (test code = A/G Ratio) 1.0 0.7-1.6 [facility]2017-11-12 21:36:00 Test Item Value Reference Range Interpretation Comments Globulin (test code = Globulin) 3.7 2.7-4.[address] [facility] [id number] 21:36:00 Test Item Value Reference Range Interpretation Comments eGFR (test code = eGFR) 103 [facility]2017-11-12 21:36:00 Test Item Value Reference Range Interpretation Comments Bili Total (test code = Bili Total) 0.3 0.2-1.[address] [facility] [id number] 21:36:00 Test Item Value Reference Range Interpretation Comments Alk Phos (test code = Alk Phos) 109 39-136 [facility]2017-11-12 21:36:00 Test Item Value Reference Range Interpretation Comments ALT (test code = ALT) 33 See_Comment [Auto mated message] The system which ge nerated this result transmit anjelica reference range : <=65. The reference range was not used to interpr et this result as randa l/abnormal. [facility]2017-11-12 21:36:00 Test Item Value Reference Range Interpretation Comments AST (test code = AST) 14 See_Comment [Auto mated message] The system which ge nerated this result transmit anjelica reference range : <=37. The reference range was not used to interpr et this result as randa l/abnormal. [facility]2017-11-12 21:36:00 Test Item Value Reference Range Interpretation Comments Albumin Lvl (test code = Albumin Lvl) 3.6 3.5-5.0 [facility]2017-11-12 21:36:00 Test Item Value Reference Range Interpretation Comments Total Protein (test code = Total 7.3 6.4-8.4 Protein) [facility]2017-11-12 21:36:00 Test Item Value Reference Range Interpretation Comments Calcium Lvl (test code = Calcium Lvl) 9.1 8.5-10.5 [facility]2017-11-12 21:36:00 Test Item Value Reference Range Interpretation Comments Sodium Lvl (test code = Sodium Lvl) 137 135-145 [facility]2017-11-12 21:36:00 Test Item Value Reference Range Interpretation Comments BUN (test code = BUN) 11 7-22 [facility]2017-11-12 21:36:00 Test Item Value Reference Range Interpretation Comments Creatinine Lvl (test code = Creatinine 0.82 0.50-1.40 Lvl) [facility]2017-11-12 21:36:00 Test Item Value Reference Range Interpretation Comments CO2 (test code = CO2) 32 24-32 [facility]2017-11-12 21:36:00 Test Item Value Reference Range Interpretation Comments Chloride Lvl (test code = Chloride Lvl) 98 95-109 [facility]2017-11-12 21:36:00 Test Item Value Reference Range Interpretation Comments Potassium Lvl (test code = Potassium 3.9 3.5-5.1 Lvl) [facility]2017-11-12 21:36:00 Test Item Value Reference Range Interpretation Comments Glucose Lvl (test code = Glucose Lvl) 134 70-99 [facility] HospitalRlfeuxkIHMNXGDXXF7088-89-27 21:36:00 Test Item Value Reference Range Interpretation Comments MCV (test code = MCV) 83.7 80.0-94.0 [facility] HospitalNjzllgdMUWLHLLJZT7823-49-11 21:36:00 Test Item Value Reference Range Interpretation Comments Hct (test code = Hct) 45.5 42.0-54.0 [facility] HospitalWlwfcvsKBLUEBNPUA3684-51-74 21:36:00 Test Item Value Reference Range Interpretation Comments RDW (test code = RDW) 14.4 11.5-14.5 [facility] HospitalWzegmbdKOUBYZBQUK0512-96-72 21:36:00 Test Item Value Reference Range Interpretation Comments MCHC (test code = MCHC) 33.2 32.0-36.0 [facility] HospitalQvrdgbpTGDSRPTELC9037-53-93 21:36:00 Test Item Value Reference Range Interpretation Comments MCH (test code = MCH) 27.8 pg 27.0-31.0 [facility] HospitalXakljbjSHYSNXVVSB2223-61-76 21:36:00 Test Item Value Reference Range Interpretation Comments Platelet (test code = Platelet) 234 133-450 [facility] HospitalTafpsvvZFQHPWWYUC5024-68-01 21:36:00 Test Item Value Reference Range Interpretation Comments MPV (test code = MPV) 8.2 7.4-10.4 [facility] HospitalBoogtnnURNKCCPRPC0764-08-30 21:36:00 Test Item Value Reference Range Interpretation Comments WBC (test code = WBC) 6.8 3.7-10.4 [facility] HospitalHyxitmyNJEZYJOEUR9663-68-95 21:36:00 Test Item Value Reference Range Interpretation Comments RBC (test code = RBC) 5.44 4.70-6.10 [facility] HospitalWvydmijKYBNZQHIOZ5662-06-03 21:36:00 Test Item Value Reference Range Interpretation Comments Hgb (test code = Hgb) 15.1 14.0-18.0 [facility] HospitalAubmsjpMPJTGUKBDV3863-53-64 21:36:00 Test Item Value Reference Range Interpretation Comments Eosinophils # (test code 0.4 See_Comment [A utomated message] The = Eosinophils #) system whic h generated this result tra nsmitted reference range : <=0.5. The reference r david was not used to int erpret this result as normal/abnormal . [facility] HospitalGkdmbcfVJONFIVGAO7938-87-01 21:36:00 Test Item Value Reference Range Interpretation Comments Monocytes # (test code 0.8 See_Comment [Aut omated message] The = Monocytes #) system which generated this result tra nsmitted reference range : <=0.8. The reference r david was not used to int erpret this result as normal/abnormal . [facility] HospitalVtwvctqHRRGSIRHIS5163-67-84 21:36:00 Test Item Value Reference Range Interpretation Comments Lymphocytes # (test code = Lymphocytes 3.2 1.0-5.5 #) [facility] HospitalTtpseowJOTBNEIPVX2716-53-52 21:36:00 Test Item Value Reference Range Interpretation Comments Basophils # (test code 0.1 See_Comment [Aut omated message] The = Basophils #) system which generated this result tra nsmitted reference range : <=0.2. The reference r david was not used to int erpret this result as normal/abnormal . [facility] HospitalQdwmmxkHMSJCRIWKG9198-42-66 21:36:00 Test Item Value Reference Range Interpretation Comments Segs (test code = Segs) 36.0 45.0-75.0 [facility] HospitalJgfrjkxMQTUMRLENT0692-13-02 21:36:00 Test Item Value Reference Range Interpretation Comments Segs-Bands # (test code = Segs-Bands #) 2.5 1.5-8.1 [facility] HospitalIrcbahoPWWJHEDQIN1919-72-71 21:36:00 Test Item Value Reference Range Interpretation Comments Basophils (test code = 1.2 See_Comment [Aut omated message] The Basophils) system which ge nerated this result tra nsmitted reference range : <=1.0. The reference r david was not used to int erpret this result as normal/abnormal . [facility] HospitalBcgyohiMTDNRYYMDY6338-08-94 21:36:00 Test Item Value Reference Range Interpretation Comments Eosinophils (test code = 5.3 See_Comment [A utomated message] The Eosinophils) system which ge nerated this result tra nsmitted reference range : <=4.0. The reference r david was not used to int erpret this result as normal/abnormal . [facility]KgjpgrxUQGRDXMEKI9975-08-39 21:36:00 Test Item Value Reference Range Interpretation Comments Monocytes (test code = Monocytes) 11.1 2.0-12.0 [facility] CenterRslbwakSPXFWAFQGD2352-26-79 21:36:00 Test Item Value Reference Range Interpretation Comments Lymphocytes (test code = Lymphocytes) 46.4 20.0-40.0 [facility] QORBYGR1182-49-11 21:36:00 Test Item Value Reference Range Interpretation Comments Troponin-I (test code no gt See_Comment [Auto mated message] The = Troponin-I) system which g enerated this result transmit anjelica reference range : <=0.40. The reference r david was not used to interpr et this result as randa l/abnormal. [facility] OXRVMUE5773-45-66 21:36:00 Test Item Value Reference Range Interpretation Comments BNP (test code = BNP) 7 [facility]2017-11-12 21:36:00 Test Item Value Reference Range Interpretation Comments Lipase Lvl (test code = Lipase Lvl) 147 73-393 [facility]2017-11-12 21:36:00 Test Item Value Reference Range Interpretation Comments B/C Ratio (test code = B/C Ratio) 13 6-25 [facility]2017-11-12 21:36:00 Test Item Value Reference Range Interpretation Comments AGAP (test code = AGAP) 10.9 10.0-20.0 [facility]2017-11-12 21:36:00 Test Item Value Reference Range Interpretation Comments A/G Ratio (test code = A/G Ratio) 1.0 0.7-1.6 [facility]2017-11-12 21:36:00 Test Item Value Reference Range Interpretation Comments Globulin (test code = Globulin) 3.7 2.7-4.2 [facility]2017-11-12 21:36:00 Test Item Value Reference Range Interpretation Comments eGFR (test code = eGFR) 103 [facility]2017-11-12 21:36:00 Test Item Value Reference Range Interpretation Comments Bili Total (test code = Bili Total) 0.3 0.2-1.3 [facility]2017-11-12 21:36:00 Test Item Value Reference Range Interpretation Comments Alk Phos (test code = Alk Phos) 109 39-136 [facility]2017-11-12 21:36:00 Test Item Value Reference Range Interpretation Comments ALT (test code = ALT) 33 See_Comment [Auto mated message] The system which ge nerated this result transmit anjelica reference range : <=65. The reference range was not used to interpr et this result as randa l/abnormal. [facility]2017-11-12 21:36:00 Test Item Value Reference Range Interpretation Comments AST (test code = AST) 14 See_Comment [Auto mated message] The system which ge nerated this result transmit anjelica reference range : <=37. The reference range was not used to interpr et this result as randa l/abnormal. [facility]2017-11-12 21:36:00 Test Item Value Reference Range Interpretation Comments Albumin Lvl (test code = Albumin Lvl) 3.6 3.5-5.0 [facility]2017-11-12 21:36:00 Test Item Value Reference Range Interpretation Comments Total Protein (test code = Total 7.3 6.4-8.4 Protein) [facility]2017-11-12 21:36:00 Test Item Value Reference Range Interpretation Comments Calcium Lvl (test code = Calcium Lvl) 9.1 8.5-10.5 [facility]2017-11-12 21:36:00 Test Item Value Reference Range Interpretation Comments Sodium Lvl (test code = Sodium Lvl) 137 135-145 [facility]2017-11-12 21:36:00 Test Item Value Reference Range Interpretation Comments BUN (test code = BUN) 11 7-22 [facility]2017-11-12 21:36:00 Test Item Value Reference Range Interpretation Comments Creatinine Lvl (test code = Creatinine 0.82 0.50-1.40 Lvl) [facility]2017-11-12 21:36:00 Test Item Value Reference Range Interpretation Comments CO2 (test code = CO2) 32 24-32 [facility]2017-11-12 21:36:00 Test Item Value Reference Range Interpretation Comments Chloride Lvl (test code = Chloride Lvl) 98 95-109 [facility]2017-11-12 21:36:00 Test Item Value Reference Range Interpretation Comments Potassium Lvl (test code = Potassium 3.9 3.5-5.1 Lvl) [facility]2017-11-12 21:36:00 Test Item Value Reference Range Interpretation Comments Glucose Lvl (test code = Glucose Lvl) 134 70-99 [facility] HospitalYcqnhbfEVYUUZJYUU7896-62-80 21:36:00 Test Item Value Reference Range Interpretation Comments MCV (test code = MCV) 83.7 80.0-94.0 [facility] HospitalUwuokcrWDFIKOKKCC8829-62-40 21:36:00 Test Item Value Reference Range Interpretation Comments Hct (test code = Hct) 45.5 42.0-54.0 [facility] HospitalVlsgjruJOGTYFBNUN6253-38-53 21:36:00 Test Item Value Reference Range Interpretation Comments RDW (test code = RDW) 14.4 11.5-14.5 [facility] HospitalYvpgqgwKQVKATGUBS6145-07-40 21:36:00 Test Item Value Reference Range Interpretation Comments MCHC (test code = MCHC) 33.2 32.0-36.0 [facility] HospitalUozlqdjMUZXVZIXIX3295-53-89 21:36:00 Test Item Value Reference Range Interpretation Comments MCH (test code = MCH) 27.8 pg 27.0-31.0 [facility] HospitalWynpbtsSZJSHSMGNS1076-32-47 21:36:00 Test Item Value Reference Range Interpretation Comments Platelet (test code = Platelet) 234 133-450 [facility] HospitalBsglqffJNXECNVVQV5590-26-43 21:36:00 Test Item Value Reference Range Interpretation Comments MPV (test code = MPV) 8.2 7.4-10.4 [facility] HospitalJaljxxhRQFUHEMSHD3085-38-37 21:36:00 Test Item Value Reference Range Interpretation Comments WBC (test code = WBC) 6.8 3.7-10.4 [facility] HospitalXzxjaboLIQDMTIIKW7306-70-25 21:36:00 Test Item Value Reference Range Interpretation Comments RBC (test code = RBC) 5.44 4.70-6.10 [facility] HospitalEuutedxETAKRIAOMG5596-95-24 21:36:00 Test Item Value Reference Range Interpretation Comments Hgb (test code = Hgb) 15.1 14.0-18.0 [facility] HospitalYjokgfqVGQMIRFJCC8910-75-37 21:36:00 Test Item Value Reference Range Interpretation Comments Eosinophils # (test code 0.4 See_Comment [A utomated message] The = Eosinophils #) system the medical center h generated this result tra nsmitted reference range : <=0.5. The reference r david was not used to int erpret this result as normal/abnormal . [facility] HospitalZupjefuWVATAPAVAF9047-76-81 21:36:00 Test Item Value Reference Range Interpretation Comments Monocytes # (test code 0.8 See_Comment [Aut omated message] The = Monocytes #) system which generated this result tra nsmitted reference range : <=0.8. The reference r david was not used to int erpret this result as normal/abnormal . [facility] HospitalTlolfnyGZGGCCHOOZ6547-77-57 21:36:00 Test Item Value Reference Range Interpretation Comments Lymphocytes # (test code = Lymphocytes 3.2 1.0-5.5 #) [facility] HospitalMrrkubxOOSASJNOCH5805-16-06 21:36:00 Test Item Value Reference Range Interpretation Comments Basophils # (test code 0.1 See_Comment [Aut omated message] The = Basophils #) system which generated this result tra nsmitted reference range : <=0.2. The reference r david was not used to int erpret this result as normal/abnormal . [facility] HospitalUqlqcbsSKDNQTBSUZ1136-21-71 21:36:00 Test Item Value Reference Range Interpretation Comments Segs (test code = Segs) 36.0 45.0-75.0 [facility] HospitalEkkaddsZAHZQMYGWF2222-50-04 21:36:00 Test Item Value Reference Range Interpretation Comments Segs-Bands # (test code = Segs-Bands #) 2.5 1.5-8.1 [facility] HospitalDzoneclKFLGWWRIIA6560-45-56 21:36:00 Test Item Value Reference Range Interpretation Comments Basophils (test code = 1.2 See_Comment [Aut omated message] The Basophils) system which ge nerated this result tra nsmitted reference range : <=1.0. The reference r david was not used to int erpret this result as normal/abnormal . [facility] HospitalCmwuclaJKSDGPZYWW4618-47-66 21:36:00 Test Item Value Reference Range Interpretation Comments Eosinophils (test code = 5.3 See_Comment [A utomated message] The Eosinophils) system which ge nerated this result tra nsmitted reference range : <=4.0. The reference r david was not used to int erpret this result as normal/abnormal . [facility]AjtabttGUINJBNNWU2891-84-78 21:36:00 Test Item Value Reference Range Interpretation Comments Monocytes (test code = Monocytes) 11.1 2.0-12.0 [facility] CenterWjiowfqXLIMHKHDZH0974-75-99 21:36:00 Test Item Value Reference Range Interpretation Comments Lymphocytes (test code = Lymphocytes) 46.4 20.0-40.[address] [facility] CenterCARDIAC XTTSVRV4093-80-85 09:51:00 Test Item Value Reference Range Interpretation Comments BNP (test code = BNP) 5 [facility]LkodqnnDACEILTHOLXS2184-62-66 09:51:00 Test Item Value Reference Range Interpretation Comments AGAP (test code = AGAP) 13.8 10.0-20.0 [facility]NilnrabQRALYZDYDFWD0544-82-74 09:51:00 Test Item Value Reference Range Interpretation Comments eGFR (test code = eGFR) 91 [facility]AjrdjrkNBPEPLLJEFFE2565-23-55 09:51:00 Test Item Value Reference Range Interpretation Comments Potassium Lvl (test code = Potassium 3.8 3.5-5.1 Lvl) [facility]EzsturvQXVLTPCGTBBC1242-09-74 09:51:00 Test Item Value Reference Range Interpretation Comments Sodium Lvl (test code = Sodium Lvl) 135 135-145 [facility]TgbkyxbPQTFNSDZFVOD4214-02-27 09:51:00 Test Item Value Reference Range Interpretation Comments CO2 (test code = CO2) 28 24-32 [facility]ZxijukmDMRYUZMJGCQM8616-41-05 09:51:00 Test Item Value Reference Range Interpretation Comments Calcium Lvl (test code = Calcium Lvl) 8.8 8.5-10.5 [facility]ZijxjkzFIZYNLCEJVCV2418-53-57 09:51:00 Test Item Value Reference Range Interpretation Comments Chloride Lvl (test code = Chloride Lvl) 97 95-109 [facility] HospitalWrokxcbARPJUQXGELTP2508-99-43 09:51:00 Test Item Value Reference Range Interpretation Comments Creatinine Lvl (test code = Creatinine 0.97 0.50-1.40 Lvl) [facility] HospitalTcqtdkdNKZANWUGMAFT6079-66-49 09:51:00 Test Item Value Reference Range Interpretation Comments BUN (test code = BUN) 11 7-22 [facility]JgtmnznAMFGSMCJBLHV6350-06-25 09:51:00 Test Item Value Reference Range Interpretation Comments Glucose Lvl (test code = Glucose Lvl) 264 70-99 [facility] HospitalWgtdqouDKIMHDBCUH8904-56-67 09:51:00 Test Item Value Reference Range Interpretation Comments Eosinophils # (test code 0.1 See_Comment [A utomated message] The = Eosinophils #) system whic h generated this result tra nsmitted reference range : <=0.5. The reference r david was not used to int erpret this result as normal/abnormal . [facility] HospitalYsirbtrEAYGVKSYRD8347-23-25 09:51:00 Test Item Value Reference Range Interpretation Comments Basophils # (test code 0.1 See_Comment [Aut omated message] The = Basophils #) system which generated this result tra nsmitted reference range : <=0.2. The reference r david was not used to int erpret this result as normal/abnormal . [facility] HospitalOykegsaBEKDDYZJDZ1570-08-83 09:51:00 Test Item Value Reference Range Interpretation Comments Basophils (test code = 0.9 See_Comment [Aut omated message] The Basophils) system which ge nerated this result tra nsmitted reference range : <=1.0. The reference r david was not used to int erpret this result as normal/abnormal . [facility] HospitalDgdkeioGRSYYBXRYN9551-89-44 09:51:00 Test Item Value Reference Range Interpretation Comments Segs-Bands # (test code = Segs-Bands #) 4.7 1.5-8.1 [facility] HospitalTtmynsiGFICOWAQTT8092-25-75 09:51:00 Test Item Value Reference Range Interpretation Comments Eosinophils (test code = 1.1 See_Comment [A utomated message] The Eosinophils) system which ge nerated this result tra nsmitted reference range : <=4.0. The reference r david was not used to int erpret this result as normal/abnormal . [facility] HospitalYrhiwwwELMPYEFLQF7919-28-47 09:51:00 Test Item Value Reference Range Interpretation Comments Lymphocytes # (test code = Lymphocytes 1.0 1.0-5.5 #) [facility] HospitalIprvvypAMJZLCOTRA2547-39-94 09:51:00 Test Item Value Reference Range Interpretation Comments Monocytes # (test code 0.8 See_Comment [Aut omated message] The = Monocytes #) system which generated this result tra nsmitted reference range : <=0.8. The reference r david was not used to int erpret this result as normal/abnormal . [facility] HospitalNkzhqjfSTVXUBTHFD4918-05-05 09:51:00 Test Item Value Reference Range Interpretation Comments Segs (test code = Segs) 71.5 45.0-75.0 [facility] HospitalDcapvkwLINFJNRXQD0472-35-23 09:51:00 Test Item Value Reference Range Interpretation Comments Lymphocytes (test code = Lymphocytes) 14.8 20.0-40.0 [facility] HospitalUvsrteuBEIRALPTHA9567-78-20 09:51:00 Test Item Value Reference Range Interpretation Comments Monocytes (test code = Monocytes) 11.7 2.0-12.0 [facility] HospitalKddtbfwBTIMLUYHZY3908-37-52 09:51:00 Test Item Value Reference Range Interpretation Comments MPV (test code = MPV) 8.0 7.4-10.4 [facility] HospitalXmmynzjSQVDRLDHTU6697-63-50 09:51:00 Test Item Value Reference Range Interpretation Comments Platelet (test code = Platelet) 186 133-450 [facility]SauxaqjJVWUFSTNQF2841-05-76 09:51:00 Test Item Value Reference Range Interpretation Comments MCH (test code = MCH) 26.9 pg 27.0-31.0 [facility] HospitalYawlnrjGRLWOQBVVK7960-93-06 09:51:00 Test Item Value Reference Range Interpretation Comments RDW (test code = RDW) 14.5 11.5-14.5 [facility] HospitalVuzvgxeLXIHMOPPHB6399-76-41 09:51:00 Test Item Value Reference Range Interpretation Comments MCHC (test code = MCHC) 33.4 32.0-36.0 [facility] HospitalJlywmqmCIFKMYTGES9257-32-58 09:51:00 Test Item Value Reference Range Interpretation Comments Hgb (test code = Hgb) 15.4 14.0-18.0 [facility] HospitalDtsuuudXJDSSXOEMI9098-92-32 09:51:00 Test Item Value Reference Range Interpretation Comments Hct (test code = Hct) 46.1 42.0-54.0 [facility] HospitalBprpgboTDHKCFYVPK2600-92-86 09:51:00 Test Item Value Reference Range Interpretation Comments MCV (test code = MCV) 80.5 80.0-94.0 [facility] HospitalXhvblhsKRYCLFYASI1811-05-16 09:51:00 Test Item Value Reference Range Interpretation Comments WBC (test code = WBC) 6.5 3.7-10.4 [facility]WrgurzbPZPGZXPAZE0620-46-50 09:51:00 Test Item Value Reference Range Interpretation Comments RBC (test code = RBC) 5.73 4.70-6.[address] [facility] KABZGMM5895-21-21 09:51:00 Test Item Value Reference Range Interpretation Comments BNP (test code = BNP) 5 [facility]LmvzmdbYWGQJNMDAZUT2574-51-69 09:51:00 Test Item Value Reference Range Interpretation Comments AGAP (test code = AGAP) 13.8 10.0-20.0 [facility] HospitalItxznzhWOYXDDJEWBUQ6483-88-59 09:51:00 Test Item Value Reference Range Interpretation Comments eGFR (test code = eGFR) 91 [facility] HospitalFdyhxoeOCGSIWQOXXFD6499-15-22 09:51:00 Test Item Value Reference Range Interpretation Comments Potassium Lvl (test code = Potassium 3.8 3.5-5.1 Lvl) [facility] HospitalPyrvrboIFUEOWHEJRXO7876-09-92 09:51:00 Test Item Value Reference Range Interpretation Comments Sodium Lvl (test code = Sodium Lvl) 135 135-145 [facility]UxmdvzuJYQEKNSZJVUM0450-33-58 09:51:00 Test Item Value Reference Range Interpretation Comments CO2 (test code = CO2) 28 24-32 [facility] HospitalZsgvlchBLNEFIAUSWXX4250-85-85 09:51:00 Test Item Value Reference Range Interpretation Comments Calcium Lvl (test code = Calcium Lvl) 8.8 8.5-10.5 [facility] HospitalDuxiomeVLSXGALCGZJR3551-37-49 09:51:00 Test Item Value Reference Range Interpretation Comments Chloride Lvl (test code = Chloride Lvl) 97 95-109 [facility] HospitalAdqtdvqPGKAGPYJQWJI7701-27-16 09:51:00 Test Item Value Reference Range Interpretation Comments Creatinine Lvl (test code = Creatinine 0.97 0.50-1.40 Lvl) [facility] HospitalQajvishBESFXVHNRLIH4569-74-16 09:51:00 Test Item Value Reference Range Interpretation Comments BUN (test code = BUN) 11 7-22 [facility] HospitalTiakdbxIAZJHQYBXQPM5700-27-67 09:51:00 Test Item Value Reference Range Interpretation Comments Glucose Lvl (test code = Glucose Lvl) 264 70-99 [facility] CenterZsmckrzCWVSPCYYHX5583-18-10 09:51:00 Test Item Value Reference Range Interpretation Comments Eosinophils # (test code 0.1 See_Comment [A utomated message] The = Eosinophils #) system whic h generated this result tra nsmitted reference range : <=0.5. The reference r david was not used to int erpret this result as normal/abnormal . [facility] HospitalJcrcrutMTQMXPJHQT7170-59-89 09:51:00 Test Item Value Reference Range Interpretation Comments Basophils # (test code 0.1 See_Comment [Aut omated message] The = Basophils #) system which generated this result tra nsmitted reference range : <=0.2. The reference r david was not used to int erpret this result as normal/abnormal . [facility] HospitalXusgigcHZAXYYLCKG8579-37-71 09:51:00 Test Item Value Reference Range Interpretation Comments Basophils (test code = 0.9 See_Comment [Aut omated message] The Basophils) system which ge nerated this result tra nsmitted reference range : <=1.0. The reference r david was not used to int erpret this result as normal/abnormal . [facility] HospitalGkbbvnbXBLMZRFGOA7398-99-94 09:51:00 Test Item Value Reference Range Interpretation Comments Segs-Bands # (test code = Segs-Bands #) 4.7 1.5-8.1 [facility] HospitalRyhedyhGNXATCHAMS0469-52-40 09:51:00 Test Item Value Reference Range Interpretation Comments Eosinophils (test code = 1.1 See_Comment [A utomated message] The Eosinophils) system which ge nerated this result tra nsmitted reference range : <=4.0. The reference r david was not used to int erpret this result as normal/abnormal . [facility] HospitalRkwbeouMJDQJQEXCG8873-42-77 09:51:00 Test Item Value Reference Range Interpretation Comments Lymphocytes # (test code = Lymphocytes 1.0 1.0-5.5 #) [facility] HospitalNkyhsyiFKWSZMCFJS1871-16-76 09:51:00 Test Item Value Reference Range Interpretation Comments Monocytes # (test code 0.8 See_Comment [Aut omated message] The = Monocytes #) system which generated this result tra nsmitted reference range : <=0.8. The reference r david was not used to int erpret this result as normal/abnormal . [facility] HospitalUdpuzsgWVBMQZPIBP9341-22-27 09:51:00 Test Item Value Reference Range Interpretation Comments Segs (test code = Segs) 71.5 45.0-75.0 [facility] HospitalHsoquapRFQOVHQNHB5279-37-35 09:51:00 Test Item Value Reference Range Interpretation Comments Lymphocytes (test code = Lymphocytes) 14.8 20.0-40.0 [facility] HospitalVidgrkiHRUXVDWOOI7869-83-09 09:51:00 Test Item Value Reference Range Interpretation Comments Monocytes (test code = Monocytes) 11.7 2.0-12.0 [facility] HospitalRevmfltMOASUHCCNT7135-84-48 09:51:00 Test Item Value Reference Range Interpretation Comments MPV (test code = MPV) 8.0 7.4-10.4 [facility] HospitalSchiqrxAFEHHDMTOS8857-01-96 09:51:00 Test Item Value Reference Range Interpretation Comments Platelet (test code = Platelet) 186 133-450 [facility] HospitalHccfklcEVAZFDSFAR8715-88-71 09:51:00 Test Item Value Reference Range Interpretation Comments MCH (test code = MCH) 26.9 pg 27.0-31.0 [facility] HospitalQuglfftKTJEEIVMMV9476-16-80 09:51:00 Test Item Value Reference Range Interpretation Comments RDW (test code = RDW) 14.5 11.5-14.5 [facility] HospitalDcqiryfZZOKARHXXT0662-90-98 09:51:00 Test Item Value Reference Range Interpretation Comments MCHC (test code = MCHC) 33.4 32.0-36.0 [facility] HospitalDumgduwQAKFXBMJKV7542-37-35 09:51:00 Test Item Value Reference Range Interpretation Comments Hgb (test code = Hgb) 15.4 14.0-18.0 [facility] HospitalByucbymCVFYXEWBAV0862-92-91 09:51:00 Test Item Value Reference Range Interpretation Comments Hct (test code = Hct) 46.1 42.0-54.0 [facility] HospitalWjqvlxuFEPYAFXDKR8800-23-45 09:51:00 Test Item Value Reference Range Interpretation Comments MCV (test code = MCV) 80.5 80.0-94.0 [facility] HospitalZjrztvsIQEDRQHJMY8494-47-78 09:51:00 Test Item Value Reference Range Interpretation Comments WBC (test code = WBC) 6.5 3.7-10.4 [facility] HospitalTxsmdpmIDZBFUNZOT3166-37-50 09:51:00 Test Item Value Reference Range Interpretation Comments RBC (test code = RBC) 5.73 4.70-6.[address] [facility] CenterCARD[facility] JOHKQEA2199-31-79 09:51:00 Test Item Value Reference Range Interpretation Comments BNP (test code = BNP) 5 [facility]QzpjufwHMBSZUWUIJPL7983-31-29 09:51:00 Test Item Value Reference Range Interpretation Comments AGAP (test code = AGAP) 13.8 10.0-20.0 [facility]OhfqtclRJQXAJULNONU0425-23-96 09:51:00 Test Item Value Reference Range Interpretation Comments eGFR (test code = eGFR) 91 [facility] HospitalTxuikapZVUGKWDFMTAQ2430-35-02 09:51:00 Test Item Value Reference Range Interpretation Comments Potassium Lvl (test code = Potassium 3.8 3.5-5.1 Lvl) [facility] HospitalHnxwfbmXYGKNNSCPFLU4779-95-40 09:51:00 Test Item Value Reference Range Interpretation Comments Sodium Lvl (test code = Sodium Lvl) 135 135-145 [facility] HospitalGahrkruMVZIFIYVMBRP0434-97-55 09:51:00 Test Item Value Reference Range Interpretation Comments CO2 (test code = CO2) 28 24-32 [facility] HospitalGsbdbxwUADESWOWSIRK1071-65-30 09:51:00 Test Item Value Reference Range Interpretation Comments Calcium Lvl (test code = Calcium Lvl) 8.8 8.5-10.5 [facility]HibszhsRTCNLPQQCXRO9548-18-38 09:51:00 Test Item Value Reference Range Interpretation Comments Chloride Lvl (test code = Chloride Lvl) 97 95-109 [facility] HospitalSxqvwkuOSPPTYOSIQCY2800-94-17 09:51:00 Test Item Value Reference Range Interpretation Comments Creatinine Lvl (test code = Creatinine 0.97 0.50-1.40 Lvl) [facility] HospitalTbzvgcfAJMCCOORFSBY8222-96-30 09:51:00 Test Item Value Reference Range Interpretation Comments BUN (test code = BUN) 11 7-22 [facility] HospitalHacshgbDZRZLHMKKWCO0911-62-09 09:51:00 Test Item Value Reference Range Interpretation Comments Glucose Lvl (test code = Glucose Lvl) 264 70-[address] [facility] CenterJqdrdnsKVDGVVNKDO7019-48-98 09:51:00 Test Item Value Reference Range Interpretation Comments Eosinophils # (test code 0.1 See_Comment [A utomated message] The = Eosinophils #) system ic h generated this result tra nsmitted reference range : <=0.5. The reference r david was not used to int erpret this result as normal/abnormal . [facility] HospitalRmlsvaaXBRLOTPMOE2663-55-89 09:51:00 Test Item Value Reference Range Interpretation Comments Basophils # (test code 0.1 See_Comment [Aut omated message] The = Basophils #) system which generated this result tra nsmitted reference range : <=0.2. The reference r david was not used to int erpret this result as normal/abnormal . [facility] HospitalHlofdjkKPBFLUIFJF7972-22-52 09:51:00 Test Item Value Reference Range Interpretation Comments Basophils (test code = 0.9 See_Comment [Aut omated message] The Basophils) system which ge nerated this result tra nsmitted reference range : <=1.0. The reference r david was not used to int erpret this result as normal/abnormal . [facility] HospitalXyclgpaMIYARQVWNE9605-04-58 09:51:00 Test Item Value Reference Range Interpretation Comments Segs-Bands # (test code = Segs-Bands #) 4.7 1.5-8.1 [facility] HospitalJjzvotcCVDRZSRNGU8161-12-74 09:51:00 Test Item Value Reference Range Interpretation Comments Eosinophils (test code = 1.1 See_Comment [A utomated message] The Eosinophils) system which ge nerated this result tra nsmitted reference range : <=4.0. The reference r david was not used to int erpret this result as normal/abnormal . [facility] HospitalCpqmjygBLRQMAFOAN4620-53-23 09:51:00 Test Item Value Reference Range Interpretation Comments Lymphocytes # (test code = Lymphocytes 1.0 1.0-5.5 #) [facility] HospitalUgljzilZQADYVBEOW1388-82-41 09:51:00 Test Item Value Reference Range Interpretation Comments Monocytes # (test code 0.8 See_Comment [Aut omated message] The = Monocytes #) system which generated this result tra nsmitted reference range : <=0.8. The reference r david was not used to int erpret this result as normal/abnormal . [facility] HospitalKhcnxyoMJEAHFDIVX7222-06-86 09:51:00 Test Item Value Reference Range Interpretation Comments Segs (test code = Segs) 71.5 45.0-75.0 [facility] HospitalCzwkyaeBTGHVKTBDR1080-58-16 09:51:00 Test Item Value Reference Range Interpretation Comments Lymphocytes (test code = Lymphocytes) 14.8 20.0-40.0 [facility] CenterXatdikzNERVPZDTBQ2537-49-95 09:51:00 Test Item Value Reference Range Interpretation Comments Monocytes (test code = Monocytes) 11.7 2.0-12.0 [facility] CenterGzhanvxKWZKYOXXHQ0242-87-41 09:51:00 Test Item Value Reference Range Interpretation Comments MPV (test code = MPV) 8.0 7.4-10.4 [facility] CenterHmlacrgCCQAHRPJGH9831-56-11 09:51:00 Test Item Value Reference Range Interpretation Comments Platelet (test code = Platelet) 186 133-450 [facility] HospitalRbyphbrRJBSEKBEJD6311-00-95 09:51:00 Test Item Value Reference Range Interpretation Comments MCH (test code = MCH) 26.9 pg 27.0-31.0 [facility] HospitalXoxozgbUJJFEGETEW5170-29-53 09:51:00 Test Item Value Reference Range Interpretation Comments RDW (test code = RDW) 14.5 11.5-14.5 [facility] HospitalFrxnwcnCQDJFDNWND5589-33-46 09:51:00 Test Item Value Reference Range Interpretation Comments MCHC (test code = MCHC) 33.4 32.0-36.0 [facility] HospitalMwqpmvtFHKMJTMBBE4040-93-22 09:51:00 Test Item Value Reference Range Interpretation Comments Hgb (test code = Hgb) 15.4 14.0-18.0 [facility] HospitalRznffouCKUBAPVNIK9654-39-00 09:51:00 Test Item Value Reference Range Interpretation Comments Hct (test code = Hct) 46.1 42.0-54.0 [facility] CenterJsdowakMTJWLENDAB0122-24-45 09:51:00 Test Item Value Reference Range Interpretation Comments MCV (test code = MCV) 80.5 80.0-94.0 [facility] HospitalBcwgsajTRRUZXFONW3545-12-52 09:51:00 Test Item Value Reference Range Interpretation Comments WBC (test code = WBC) 6.5 3.7-10.4 [facility] CenterKlhovnoWVFBTWMIBU8430-63-57 09:51:00 Test Item Value Reference Range Interpretation Comments RBC (test code = RBC) 5.73 4.70-6.[address] [facility] CenterCARDIAC SANWGCV1919-53-73 09:51:00 Test Item Value Reference Range Interpretation Comments BNP (test code = BNP) 5 [facility]IvdcbpfIOLSASRMUFNI9441-24-12 09:51:00 Test Item Value Reference Range Interpretation Comments AGAP (test code = AGAP) 13.8 10.0-20.0 [facility]EppkdvxOEGTJZULQIAO0614-43-79 09:51:00 Test Item Value Reference Range Interpretation Comments eGFR (test code = eGFR) 91 [facility] HospitalDxxljkuKPHGGCAJGPWZ2702-19-61 09:51:00 Test Item Value Reference Range Interpretation Comments Potassium Lvl (test code = Potassium 3.8 3.5-5.1 Lvl) [facility] HospitalLwivkhgAKVAKHXNIFHY4830-57-05 09:51:00 Test Item Value Reference Range Interpretation Comments Sodium Lvl (test code = Sodium Lvl) 135 135-145 [facility]DsepdbvUWCMERXQHZCI0717-04-72 09:51:00 Test Item Value Reference Range Interpretation Comments CO2 (test code = CO2) 28 24-32 [facility] HospitalTbuiwdjYHKYOCJMJRFF7905-71-97 09:51:00 Test Item Value Reference Range Interpretation Comments Calcium Lvl (test code = Calcium Lvl) 8.8 8.5-10.5 [facility]NngrwgmGENOPFIYPNYL3959-84-67 09:51:00 Test Item Value Reference Range Interpretation Comments Chloride Lvl (test code = Chloride Lvl) 97 95-109 [facility] HospitalDoaxilwNYSAYWSSIIIS6244-46-39 09:51:00 Test Item Value Reference Range Interpretation Comments Creatinine Lvl (test code = Creatinine 0.97 0.50-1.40 Lvl) [facility] HospitalUxxssrdUZQMROOWNAUS8029-48-02 09:51:00 Test Item Value Reference Range Interpretation Comments BUN (test code = BUN) 11 7-22 [facility] HospitalWkpeuitVAAJDRYKVZEX9566-66-85 09:51:00 Test Item Value Reference Range Interpretation Comments Glucose Lvl (test code = Glucose Lvl) 264 70-99 [facility] HospitalFmnauvsGDCBJGXMRT5525-75-94 09:51:00 Test Item Value Reference Range Interpretation Comments Eosinophils # (test code 0.1 See_Comment [A utomated message] The = Eosinophils #) system whic h generated this result tra nsmitted reference range : <=0.5. The reference r david was not used to int erpret this result as normal/abnormal . [facility] HospitalBkhvkjeRISJHLIYTR1000-81-63 09:51:00 Test Item Value Reference Range Interpretation Comments Basophils # (test code 0.1 See_Comment [Aut omated message] The = Basophils #) system which generated this result tra nsmitted reference range : <=0.2. The reference r david was not used to int erpret this result as normal/abnormal . [facility] HospitalKjcfehsYQNTMSLYRK9619-20-76 09:51:00 Test Item Value Reference Range Interpretation Comments Basophils (test code = 0.9 See_Comment [Aut omated message] The Basophils) system which ge nerated this result tra nsmitted reference range : <=1.0. The reference r david was not used to int erpret this result as normal/abnormal . [facility] HospitalWhwrxlmFUONCAZPDM5470-65-02 09:51:00 Test Item Value Reference Range Interpretation Comments Segs-Bands # (test code = Segs-Bands #) 4.7 1.5-8.1 [facility] HospitalFpviuauQLREDHCAZE9299-50-32 09:51:00 Test Item Value Reference Range Interpretation Comments Eosinophils (test code = 1.1 See_Comment [A utomated message] The Eosinophils) system which ge nerated this result tra nsmitted reference range : <=4.0. The reference r david was not used to int erpret this result as normal/abnormal . [facility] HospitalObyfxjrTGTWFRLTEH7250-24-07 09:51:00 Test Item Value Reference Range Interpretation Comments Lymphocytes # (test code = Lymphocytes 1.0 1.0-5.5 #) [facility] HospitalJckomcnXJXACSIPTW2918-37-98 09:51:00 Test Item Value Reference Range Interpretation Comments Monocytes # (test code 0.8 See_Comment [Aut omated message] The = Monocytes #) system which generated this result tra nsmitted reference range : <=0.8. The reference r david was not used to int erpret this result as normal/abnormal . [facility] HospitalDeffvmyTRWTEOWZJI4953-46-09 09:51:00 Test Item Value Reference Range Interpretation Comments Segs (test code = Segs) 71.5 45.0-75.0 [facility] HospitalPuxllwkXGVLWIXGFE0456-40-05 09:51:00 Test Item Value Reference Range Interpretation Comments Lymphocytes (test code = Lymphocytes) 14.8 20.0-40.0 [facility] HospitalCcldggjTNUBGVUFGV9047-74-98 09:51:00 Test Item Value Reference Range Interpretation Comments Monocytes (test code = Monocytes) 11.7 2.0-12.0 [facility] CenterGlesixoDEOABOFVNF5549-58-22 09:51:00 Test Item Value Reference Range Interpretation Comments MPV (test code = MPV) 8.0 7.4-10.4 [facility] CenterBedqdpoXLNURIXPFT0563-02-74 09:51:00 Test Item Value Reference Range Interpretation Comments Platelet (test code = Platelet) 186 133-450 [facility] CenterCgwtjjvHDSYZGHZXH0979-58-04 09:51:00 Test Item Value Reference Range Interpretation Comments MCH (test code = MCH) 26.9 pg 27.0-31.0 [facility] CenterNfbiwjhNKVOOQFLKQ4698-34-43 09:51:00 Test Item Value Reference Range Interpretation Comments RDW (test code = RDW) 14.5 11.5-14.5 [facility] CenterMnhjnncCJWXPJMYIF1789-94-42 09:51:00 Test Item Value Reference Range Interpretation Comments MCHC (test code = MCHC) 33.4 32.0-36.0 [facility] CenterPwembluHAIDHEFYON5901-31-79 09:51:00 Test Item Value Reference Range Interpretation Comments Hgb (test code = Hgb) 15.4 14.0-18.0 [facility] CenterKlzjwrpACZPKWBUGG2101-75-85 09:51:00 Test Item Value Reference Range Interpretation Comments Hct (test code = Hct) 46.1 42.0-54.0 [facility] HospitalOupnsebNOXIOJGIZV4889-02-14 09:51:00 Test Item Value Reference Range Interpretation Comments MCV (test code = MCV) 80.5 80.0-94.0 [facility] CenterFhwnxzjTHICRPDDXP0451-23-03 09:51:00 Test Item Value Reference Range Interpretation Comments WBC (test code = WBC) 6.5 3.7-10.4 [facility] CenterJwesaytTWMCYRNQWN8524-41-34 09:51:00 Test Item Value Reference Range Interpretation Comments RBC (test code = RBC) 5.73 4.70-6.[address] [facility] CenterCARDIAC DTWWYKY6213-38-79 07:57:00 Test Item Value Reference Range Interpretation Comments Troponin-I (test code no gt See_Comment [Auto mated message] The = Troponin-I) system which g enerated this result transmit najelica reference range : <=0.40. The reference r david was not used to interpr et this result as randa l/abnormal. [facility]annC[facility] UNQSNPE6277-24-76 07:57:00 Test Item Value Reference Range Interpretation Comments Troponin-I (test code no gt See_Comment [Auto mated message] The = Troponin-I) system which g enerated this result transmit anjelica reference range : <=0.40. The reference r david was not used to interpr et this result as randa l/abnormal. [facility] HospitalFigleaves.com NQUQETI9118-23-95 07:57:00 Test Item Value Reference Range Interpretation Comments Troponin-I (test code no gt See_Comment [Auto mated message] The = Troponin-I) system which g enerated this result transmit anjelica reference range : <=0.40. The reference r david was not used to interpr et this result as randa l/abnormal. [facility]aleVeritas, Inc[facility] HOMXEMM8252-10-82 07:57:00 Test Item Value Reference Range Interpretation Comments Troponin-I (test code no gt See_Comment [Auto mated message] The = Troponin-I) system which g enerated this result transmit anjelica reference range : <=0.40. The reference r david was not used to interpr et this result as randa l/abnormal. [facility] [employer] [id number] 02:57:00 Test Item Value Reference Range Interpretation Comments eGFR (test code = eGFR) 88 [facility] [employer] YGHRK0671-79-27 02:57:00 Test Item Value Reference Range Interpretation Comments Potassium Lvl (test code = Potassium 4.1 3.5-5.1 Lvl) [facility] [employer] [id number] 02:57:00 Test Item Value Reference Range Interpretation Comments Sodium Lvl (test code = Sodium Lvl) 137 135-145 [facility] [employer] [id number] 02:57:00 Test Item Value Reference Range Interpretation Comments Creatinine Lvl (test code = Creatinine 1.00 0.50-1.40 Lvl) [facility] [employer] [id number] 02:57:00 Test Item Value Reference Range Interpretation Comments CO2 (test code = CO2) 27 24-32 [facility] [employer] [id number] 02:57:00 Test Item Value Reference Range Interpretation Comments Chloride Lvl (test code = Chloride Lvl) 97 95-109 [facility] [employer] [id number] 02:57:00 Test Item Value Reference Range Interpretation Comments AGAP (test code = AGAP) 17.1 10.0-20.0 [facility]2017-02-06 02:57:00 Test Item Value Reference Range Interpretation Comments Calcium Lvl (test code = Calcium Lvl) 8.7 8.5-10.5 [facility]2017-02-06 02:57:00 Test Item Value Reference Range Interpretation Comments BUN (test code = BUN) 11 - [facility]2017-02-06 02:57:00 Test Item Value Reference Range Interpretation Comments Glucose Lvl (test code = Glucose Lvl) 272 70-99 [facility]2017-02-06 02:57:00 Test Item Value Reference Range Interpretation Comments eGFR (test code = eGFR) 88 [facility]2017-02-06 02:57:00 Test Item Value Reference Range Interpretation Comments Potassium Lvl (test code = Potassium 4.1 3.5-5.1 Lvl) [facility]2017-02-06 02:57:00 Test Item Value Reference Range Interpretation Comments Sodium Lvl (test code = Sodium Lvl) 137 135-145 [facility]2017-02-06 02:57:00 Test Item Value Reference Range Interpretation Comments Creatinine Lvl (test code = Creatinine 1.00 0.50-1.40 Lvl) [facility]2017-02-06 02:57:00 Test Item Value Reference Range Interpretation Comments CO2 (test code = CO2) 27 24-32 [facility]2017-02-06 02:57:00 Test Item Value Reference Range Interpretation Comments Chloride Lvl (test code = Chloride Lvl) 97 95-109 [facility]2017-02-06 02:57:00 Test Item Value Reference Range Interpretation Comments AGAP (test code = AGAP) 17.1 10.0-20.0 [facility]2017-02-06 02:57:00 Test Item Value Reference Range Interpretation Comments Calcium Lvl (test code = Calcium Lvl) 8.7 8.5-10.5 [facility]2017-02-06 02:57:00 Test Item Value Reference Range Interpretation Comments BUN (test code = BUN) 11 - [facility]2017-02-06 02:57:00 Test Item Value Reference Range Interpretation Comments Glucose Lvl (test code = Glucose Lvl) 272 70-99 [facility]2017-02-06 02:57:00 Test Item Value Reference Range Interpretation Comments eGFR (test code = eGFR) 88 [facility]2017-02-06 02:57:00 Test Item Value Reference Range Interpretation Comments Potassium Lvl (test code = Potassium 4.1 3.5-5.1 Lvl) [facility] [facility]2017-02-06 02:57:00 Test Item Value Reference Range Interpretation Comments Sodium Lvl (test code = Sodium Lvl) 137 135-145 [facility]2017-02-06 02:57:00 Test Item Value Reference Range Interpretation Comments Creatinine Lvl (test code = Creatinine 1.00 0.50-1.40 Lvl) [facility]2017-02-06 02:57:00 Test Item Value Reference Range Interpretation Comments CO2 (test code = CO2) 27 24-32 [facility]2017-02-06 02:57:00 Test Item Value Reference Range Interpretation Comments Chloride Lvl (test code = Chloride Lvl) 97 95-109 [facility]2017-02-06 02:57:00 Test Item Value Reference Range Interpretation Comments AGAP (test code = AGAP) 17.1 10.0-20.0 [facility]2017-02-06 02:57:00 Test Item Value Reference Range Interpretation Comments Calcium Lvl (test code = Calcium Lvl) 8.7 8.5-10.5 [facility]2017-02-06 02:57:00 Test Item Value Reference Range Interpretation Comments BUN (test code = BUN) 11 7-22 [facility]2017-02-06 02:57:00 Test Item Value Reference Range Interpretation Comments Glucose Lvl (test code = Glucose Lvl) 272 70-99 [facility]2017-02-06 02:57:00 Test Item Value Reference Range Interpretation Comments eGFR (test code = eGFR) 88 [facility]2017-02-06 02:57:00 Test Item Value Reference Range Interpretation Comments Potassium Lvl (test code = Potassium 4.1 3.5-5.1 Lvl) [facility]2017-02-06 02:57:00 Test Item Value Reference Range Interpretation Comments Sodium Lvl (test code = Sodium Lvl) 137 135-145 [facility]2017-02-06 02:57:00 Test Item Value Reference Range Interpretation Comments Creatinine Lvl (test code = Creatinine 1.00 0.50-1.40 Lvl) [facility]2017-02-06 02:57:00 Test Item Value Reference Range Interpretation Comments CO2 (test code = CO2) 27 24-32 [facility]2017-02-06 02:57:00 Test Item Value Reference Range Interpretation Comments Chloride Lvl (test code = Chloride Lvl) 97 95-109 [facility]2017-02-06 02:57:00 Test Item Value Reference Range Interpretation Comments AGAP (test code = AGAP) 17.1 10.0-20.0 [facility]2017-02-06 02:57:00 Test Item Value Reference Range Interpretation Comments Calcium Lvl (test code = Calcium Lvl) 8.7 8.5-10.5 [facility]2017-02-06 02:57:00 Test Item Value Reference Range Interpretation Comments BUN (test code = BUN) 11 7-22 [facility]2017-02-06 02:57:00 Test Item Value Reference Range Interpretation Comments Glucose Lvl (test code = Glucose Lvl) 272 70-99 [facility]2017-01-28 08:43:00 Test Item Value Reference Range Interpretation Comments eGFR (test code = eGFR) 100 [facility]2017-01-28 08:43:00 Test Item Value Reference Range Interpretation Comments Potassium Lvl (test code = Potassium 3.8 3.5-5.1 Lvl) [facility]2017-01-28 08:43:00 Test Item Value Reference Range Interpretation Comments Chloride Lvl (test code = Chloride Lvl) 99 95-109 [facility]2017-01-28 08:43:00 Test Item Value Reference Range Interpretation Comments CO2 (test code = CO2) 30 24-32 [facility]2017-01-28 08:43:00 Test Item Value Reference Range Interpretation Comments Alk Phos (test code = Alk Phos) 89 39-136 [facility]2017-01-28 08:43:00 Test Item Value Reference Range Interpretation Comments AST (test code = AST) 20 See_Comment [Auto mated message] The system which ge nerated this result transmit anjelica reference range : <=37. The reference range was not used to interpr et this result as randa l/abnormal. [facility]2017-01-28 08:43:00 Test Item Value Reference Range Interpretation Comments Bili Total (test code = Bili Total) 0.3 0.2-1.3 [facility]2017-01-28 08:43:00 Test Item Value Reference Range Interpretation Comments ALT (test code = ALT) 37 See_Comment [Auto mated message] The system which ge nerated this result transmit anjelica reference range : <=65. The reference range was not used to interpr et this result as randa l/abnormal. [facility]2017-01-28 08:43:00 Test Item Value Reference Range Interpretation Comments Albumin Lvl (test code = Albumin Lvl) 3.5 3.5-5.0 [facility]2017-01-28 08:43:00 Test Item Value Reference Range Interpretation Comments Total Protein (test code = Total 7.0 6.4-8.4 Protein) [facility]2017-01-28 08:43:00 Test Item Value Reference Range Interpretation Comments Calcium Lvl (test code = Calcium Lvl) 8.6 8.5-10.5 [facility]2017-01-28 08:43:00 Test Item Value Reference Range Interpretation Comments BUN (test code = BUN) 11 7-22 [facility]2017-01-28 08:43:00 Test Item Value Reference Range Interpretation Comments Sodium Lvl (test code = Sodium Lvl) 137 135-145 [facility]2017-01-28 08:43:00 Test Item Value Reference Range Interpretation Comments Creatinine Lvl (test code = Creatinine 0.90 0.50-1.40 Lvl) [facility]2017-01-28 08:43:00 Test Item Value Reference Range Interpretation Comments Glucose Lvl (test code = Glucose Lvl) 226 70-99 [facility]2017-01-28 08:43:00 Test Item Value Reference Range Interpretation Comments A/G Ratio (test code = A/G Ratio) 1.0 0.7-1.6 [facility]2017-01-28 08:43:00 Test Item Value Reference Range Interpretation Comments AGAP (test code = AGAP) 11.8 10.0-20.0 [facility]2017-01-28 08:43:00 Test Item Value Reference Range Interpretation Comments Globulin (test code = Globulin) 3.5 2.7-4.2 [facility]2017-01-28 08:43:00 Test Item Value Reference Range Interpretation Comments B/C Ratio (test code = B/C Ratio) 12 6-25 [facility]ARMHMJCGY4272-54-80 08:43:00 Test Item Value Reference Range Interpretation Comments MPV (test code = MPV) 7.8 7.4-10.4 [facility]YkcrewwXNDAWUTODW3075-89-69 08:43:00 Test Item Value Reference Range Interpretation Comments RBC (test code = RBC) 5.38 4.70-6.10 [facility]YcvlxepLNSWGSDNHE6764-72-68 08:43:00 Test Item Value Reference Range Interpretation Comments Hgb (test code = Hgb) 14.8 14.0-18.0 [facility] HospitalHmoscfbPVJTSNKCDJ5859-72-83 08:43:00 Test Item Value Reference Range Interpretation Comments Hct (test code = Hct) 43.7 42.0-54.0 [facility] HospitalZasejgpCGRVYBRVZE6395-20-83 08:43:00 Test Item Value Reference Range Interpretation Comments WBC (test code = WBC) 6.7 3.7-10.4 [facility] HospitalSidiwhvZVDRAIIGJZ0093-70-39 08:43:00 Test Item Value Reference Range Interpretation Comments RDW (test code = RDW) 14.0 11.5-14.5 [facility] HospitalDnjyjxfFOAPWGBHXU1384-71-27 08:43:00 Test Item Value Reference Range Interpretation Comments MCHC (test code = MCHC) 33.9 32.0-36.0 [facility] HospitalKznbqfnYMSQWQCIRL8523-42-49 08:43:00 Test Item Value Reference Range Interpretation Comments Platelet (test code = Platelet) 201 133-450 [facility] HospitalMhifpbuXBOHNXVNJL8388-06-73 08:43:00 Test Item Value Reference Range Interpretation Comments MCH (test code = MCH) 27.5 pg 27.0-31.0 [facility] HospitalYyrnxqpIQITLQGPWL5712-69-52 08:43:00 Test Item Value Reference Range Interpretation Comments MCV (test code = MCV) 81.2 80.0-94.0 [facility] HospitalCcgcibsVAFPBUMTYZ2732-34-09 08:43:00 Test Item Value Reference Range Interpretation Comments Eosinophils (test code = 4.5 See_Comment [A utomated message] The Eosinophils) system which ge nerated this result tra nsmitted reference range : <=4.0. The reference r david was not used to int erpret this result as normal/abnormal . [facility] HospitalTfgehziUMMIHUVSIC2417-47-95 08:43:00 Test Item Value Reference Range Interpretation Comments Segs (test code = Segs) 29.5 45.0-75.0 [facility] HospitalIvryvwbTXSGTRTXOH4009-10-23 08:43:00 Test Item Value Reference Range Interpretation Comments Lymphocytes (test code = Lymphocytes) 53.7 20.0-40.0 [facility] HospitalBnqsndwMCJMENQSRA0446-34-70 08:43:00 Test Item Value Reference Range Interpretation Comments Monocytes (test code = Monocytes) 10.9 2.0-12.0 [facility] HospitalTjlonfnRBVOKHYTRK8526-11-62 08:43:00 Test Item Value Reference Range Interpretation Comments Eosinophils # (test code 0.3 See_Comment [A utomated message] The = Eosinophils #) system whic h generated this result tra nsmitted reference range : <=0.5. The reference r david was not used to int erpret this result as normal/abnormal . [facility] HospitalOcqavqsALYVSTDZGH3720-54-10 08:43:00 Test Item Value Reference Range Interpretation Comments Basophils # (test code 0.1 See_Comment [Aut omated message] The = Basophils #) system which generated this result tra nsmitted reference range : <=0.2. The reference r david was not used to int erpret this result as normal/abnormal . [facility] HospitalMkpcevlIKXHKVWIKA7724-32-82 08:43:00 Test Item Value Reference Range Interpretation Comments Segs-Bands # (test code = Segs-Bands #) 2.0 1.5-8.1 [facility] HospitalQrzwonqFUPKQKQPXI2917-63-05 08:43:00 Test Item Value Reference Range Interpretation Comments Lymphocytes # (test code = Lymphocytes 3.6 1.0-5.5 #) [facility] HospitalWgholmdSBTEVQGXXC2817-64-74 08:43:00 Test Item Value Reference Range Interpretation Comments Monocytes # (test code 0.7 See_Comment [Aut omated message] The = Monocytes #) system which generated this result tra nsmitted reference range : <=0.8. The reference r david was not used to int erpret this result as normal/abnormal . [facility] HospitalZswlaspWCQIKDCPXU6033-55-39 08:43:00 Test Item Value Reference Range Interpretation Comments Basophils (test code = 1.4 See_Comment [Aut omated message] The Basophils) system which ge nerated this result tra nsmitted reference range : <=1.0. The reference r david was not used to int erpret this result as normal/abnormal . [facility]2017-01-28 08:43:00 Test Item Value Reference Range Interpretation Comments eGFR (test code = eGFR) 100 [facility]2017-01-28 08:43:00 Test Item Value Reference Range Interpretation Comments Potassium Lvl (test code = Potassium 3.8 3.5-5.1 Lvl) [facility]2017-01-28 08:43:00 Test Item Value Reference Range Interpretation Comments Chloride Lvl (test code = Chloride Lvl) 99 95-109 [facility]2017-01-28 08:43:00 Test Item Value Reference Range Interpretation Comments CO2 (test code = CO2) 30 24-32 [facility]2017-01-28 08:43:00 Test Item Value Reference Range Interpretation Comments Alk Phos (test code = Alk Phos) 89 39-136 [facility]2017-01-28 08:43:00 Test Item Value Reference Range Interpretation Comments AST (test code = AST) 20 See_Comment [Auto mated message] The system which ge nerated this result transmit anjelica reference range : <=37. The reference range was not used to interpr et this result as randa l/abnormal. [facility]2017-01-28 08:43:00 Test Item Value Reference Range Interpretation Comments Bili Total (test code = Bili Total) 0.3 0.2-1.3 [facility]2017-01-28 08:43:00 Test Item Value Reference Range Interpretation Comments ALT (test code = ALT) 37 See_Comment [Auto mated message] The system which ge nerated this result transmit anjelica reference range : <=65. The reference range was not used to interpr et this result as randa l/abnormal. [facility]2017-01-28 08:43:00 Test Item Value Reference Range Interpretation Comments Albumin Lvl (test code = Albumin Lvl) 3.5 3.5-5.0 [facility]2017-01-28 08:43:00 Test Item Value Reference Range Interpretation Comments Total Protein (test code = Total 7.0 6.4-8.4 Protein) [facility]2017-01-28 08:43:00 Test Item Value Reference Range Interpretation Comments Calcium Lvl (test code = Calcium Lvl) 8.6 8.5-10.5 [facility]2017-01-28 08:43:00 Test Item Value Reference Range Interpretation Comments BUN (test code = BUN) 11 - [facility]2017-01-28 08:43:00 Test Item Value Reference Range Interpretation Comments Sodium Lvl (test code = Sodium Lvl) 137 135-145 [facility]2017-01-28 08:43:00 Test Item Value Reference Range Interpretation Comments Creatinine Lvl (test code = Creatinine 0.90 0.50-1.40 Lvl) [facility]2017-01-28 08:43:00 Test Item Value Reference Range Interpretation Comments Glucose Lvl (test code = Glucose Lvl) 226 70-99 [facility]2017-01-28 08:43:00 Test Item Value Reference Range Interpretation Comments A/G Ratio (test code = A/G Ratio) 1.0 0.7-1.6 [facility]2017-01-28 08:43:00 Test Item Value Reference Range Interpretation Comments AGAP (test code = AGAP) 11.8 10.0-20.0 [facility]2017-01-28 08:43:00 Test Item Value Reference Range Interpretation Comments Globulin (test code = Globulin) 3.5 2.7-4.2 [facility]2017-01-28 08:43:00 Test Item Value Reference Range Interpretation Comments B/C Ratio (test code = B/C Ratio) 12 04-10 [facility] HospitalRvqtazmEOHMIBYSDZ3445-50-25 08:43:00 Test Item Value Reference Range Interpretation Comments MPV (test code = MPV) 7.8 7.4-10.4 [facility] HospitalLarsucbADCJIRAVMP0571-30-36 08:43:00 Test Item Value Reference Range Interpretation Comments RBC (test code = RBC) 5.38 4.70-6.10 [facility] HospitalLgdgakfMMURBZAZNZ6717-89-84 08:43:00 Test Item Value Reference Range Interpretation Comments Hgb (test code = Hgb) 14.8 14.0-18.0 [facility] HospitalStpsppiURBFNCIIXE7859-40-18 08:43:00 Test Item Value Reference Range Interpretation Comments Hct (test code = Hct) 43.7 42.0-54.0 [facility] HospitalRyembjfIJRBRQBVZH9819-24-47 08:43:00 Test Item Value Reference Range Interpretation Comments WBC (test code = WBC) 6.7 3.7-10.4 [facility] HospitalUsffcueRWTOJVCQXT9009-68-36 08:43:00 Test Item Value Reference Range Interpretation Comments RDW (test code = RDW) 14.0 11.5-14.5 [facility] HospitalEatjyjbDPWRSVONLT0923-78-01 08:43:00 Test Item Value Reference Range Interpretation Comments MCHC (test code = MCHC) 33.9 32.0-36.0 [facility] HospitalSgwioxbLVOOSINQZT1542-72-39 08:43:00 Test Item Value Reference Range Interpretation Comments Platelet (test code = Platelet) 201 133-450 [facility] HospitalSzrwrdxJUSUMYFUGO9136-62-10 08:43:00 Test Item Value Reference Range Interpretation Comments MCH (test code = MCH) 27.5 pg 27.0-31.0 [facility] HospitalIptbhtsIGRTNZWMCB3095-45-52 08:43:00 Test Item Value Reference Range Interpretation Comments MCV (test code = MCV) 81.2 80.0-94.0 [facility] HospitalRcxguncYLOWMWOHLK7777-11-10 08:43:00 Test Item Value Reference Range Interpretation Comments Eosinophils (test code = 4.5 See_Comment [A utomated message] The Eosinophils) system which ge nerated this result tra nsmitted reference range : <=4.0. The reference r david was not used to int erpret this result as normal/abnormal . [facility] HospitalPflalkfDYBTMWXXAO4442-75-14 08:43:00 Test Item Value Reference Range Interpretation Comments Segs (test code = Segs) 29.5 45.0-75.0 [facility] HospitalCtaxgduVYMYKRJRAN1954-04-64 08:43:00 Test Item Value Reference Range Interpretation Comments Lymphocytes (test code = Lymphocytes) 53.7 20.0-40.0 [facility] HospitalYdqisveQHYTKWOCLH4493-03-53 08:43:00 Test Item Value Reference Range Interpretation Comments Monocytes (test code = Monocytes) 10.9 2.0-12.0 [facility] HospitalPoowuhqEMMZJRFIPR9502-34-94 08:43:00 Test Item Value Reference Range Interpretation Comments Eosinophils # (test code 0.3 See_Comment [A utomated message] The = Eosinophils #) system whic h generated this result tra nsmitted reference range : <=0.5. The reference r david was not used to int erpret this result as normal/abnormal . [facility] HospitalGtfeaxfWOUKRMRNSM9090-35-16 08:43:00 Test Item Value Reference Range Interpretation Comments Basophils # (test code 0.1 See_Comment [Aut omated message] The = Basophils #) system which generated this result tra nsmitted reference range : <=0.2. The reference r david was not used to int erpret this result as normal/abnormal . [facility] HospitalZqojqzeSNZBUYVVAP2977-41-42 08:43:00 Test Item Value Reference Range Interpretation Comments Segs-Bands # (test code = Segs-Bands #) 2.0 1.5-8.1 [facility] HospitalAaqmooiPHKVRJQTUQ6478-91-64 08:43:00 Test Item Value Reference Range Interpretation Comments Lymphocytes # (test code = Lymphocytes 3.6 1.0-5.5 #) [facility] HospitalUgdqvajQYEMYLGXFA9685-37-65 08:43:00 Test Item Value Reference Range Interpretation Comments Monocytes # (test code 0.7 See_Comment [Aut omated message] The = Monocytes #) system which generated this result tra nsmitted reference range : <=0.8. The reference r david was not used to int erpret this result as normal/abnormal . [facility] HospitalXurawteQQSDWVSVFM9383-74-12 08:43:00 Test Item Value Reference Range Interpretation Comments Basophils (test code = 1.4 See_Comment [Aut omated message] The Basophils) system which ge nerated this result tra nsmitted reference range : <=1.0. The reference r david was not used to int erpret this result as normal/abnormal . [facility]2017-01-28 08:43:00 Test Item Value Reference Range Interpretation Comments eGFR (test code = eGFR) 100 [facility]2017-01-28 08:43:00 Test Item Value Reference Range Interpretation Comments Potassium Lvl (test code = Potassium 3.8 3.5-5.1 Lvl) [facility]2017-01-28 08:43:00 Test Item Value Reference Range Interpretation Comments Chloride Lvl (test code = Chloride Lvl) 99 95-109 [facility]2017-01-28 08:43:00 Test Item Value Reference Range Interpretation Comments CO2 (test code = CO2) 30 24-32 [facility]2017-01-28 08:43:00 Test Item Value Reference Range Interpretation Comments Alk Phos (test code = Alk Phos) 89 39-136 [facility]2017-01-28 08:43:00 Test Item Value Reference Range Interpretation Comments AST (test code = AST) 20 See_Comment [Auto mated message] The system which ge nerated this result transmit anjelica reference range : <=37. The reference range was not used to interpr et this result as randa l/abnormal. [facility]2017-01-28 08:43:00 Test Item Value Reference Range Interpretation Comments Bili Total (test code = Bili Total) 0.3 0.2-1.3 [facility]2017-01-28 08:43:00 Test Item Value Reference Range Interpretation Comments ALT (test code = ALT) 37 See_Comment [Auto mated message] The system which ge nerated this result transmit anjelica reference range : <=65. The reference range was not used to interpr et this result as randa l/abnormal. [facility]2017-01-28 08:43:00 Test Item Value Reference Range Interpretation Comments Albumin Lvl (test code = Albumin Lvl) 3.5 3.5-5.0 [facility]2017-01-28 08:43:00 Test Item Value Reference Range Interpretation Comments Total Protein (test code = Total 7.0 6.4-8.4 Protein) [facility]2017-01-28 08:43:00 Test Item Value Reference Range Interpretation Comments Calcium Lvl (test code = Calcium Lvl) 8.6 8.5-10.5 [facility]2017-01-28 08:43:00 Test Item Value Reference Range Interpretation Comments BUN (test code = BUN) 11 - [facility]2017-01-28 08:43:00 Test Item Value Reference Range Interpretation Comments Sodium Lvl (test code = Sodium Lvl) 137 135-145 [facility]2017-01-28 08:43:00 Test Item Value Reference Range Interpretation Comments Creatinine Lvl (test code = Creatinine 0.90 0.50-1.40 Lvl) [facility]2017-01-28 08:43:00 Test Item Value Reference Range Interpretation Comments Glucose Lvl (test code = Glucose Lvl) 226 70-99 [facility]2017-01-28 08:43:00 Test Item Value Reference Range Interpretation Comments A/G Ratio (test code = A/G Ratio) 1.0 0.7-1.6 [facility]2017-01-28 08:43:00 Test Item Value Reference Range Interpretation Comments AGAP (test code = AGAP) 11.8 10.0-20.0 [facility]2017-01-28 08:43:00 Test Item Value Reference Range Interpretation Comments Globulin (test code = Globulin) 3.5 2.7-4.2 [facility]2017-01-28 08:43:00 Test Item Value Reference Range Interpretation Comments B/C Ratio (test code = B/C Ratio) 12 04-10 [facility] HospitalAhxcrioTPWNFOMTHQ7948-20-67 08:43:00 Test Item Value Reference Range Interpretation Comments MPV (test code = MPV) 7.8 7.4-10.4 [facility] HospitalAtukxzpZWXNCDIGFZ0267-42-08 08:43:00 Test Item Value Reference Range Interpretation Comments RBC (test code = RBC) 5.38 4.70-6.10 [facility] HospitalTnfdoojIMVAKQESES1176-62-30 08:43:00 Test Item Value Reference Range Interpretation Comments Hgb (test code = Hgb) 14.8 14.0-18.0 [place] 905277-01-28 08:43:00 Test Item Value Reference Range Interpretation Comments Hct (test code = Hct) 43.7 42.0-54.0 [facility] HospitalJxgqfpzLBBPRJZZXK5996-93-12 08:43:00 Test Item Value Reference Range Interpretation Comments WBC (test code = WBC) 6.7 3.7-10.4 [facility] HospitalVryxkixINQTDEOYQW9309-16-04 08:43:00 Test Item Value Reference Range Interpretation Comments RDW (test code = RDW) 14.0 11.5-14.5 [facility] HospitalMqljwefOQACNJWBJQ8442-68-31 08:43:00 Test Item Value Reference Range Interpretation Comments MCHC (test code = MCHC) 33.9 32.0-36.0 [facility] HospitalEockpnvWXBVYSKFGO5997-47-33 08:43:00 Test Item Value Reference Range Interpretation Comments Platelet (test code = Platelet) 201 133-450 [facility] HospitalKvqghllDJQVGUROLE0229-72-61 08:43:00 Test Item Value Reference Range Interpretation Comments MCH (test code = MCH) 27.5 pg 27.0-31.0 [facility] HospitalBqvaoumJRNJXQRWKW6612-22-06 08:43:00 Test Item Value Reference Range Interpretation Comments MCV (test code = MCV) 81.2 80.0-94.0 [facility] HospitalEjkqcmwOMJJXQZNUG9145-64-71 08:43:00 Test Item Value Reference Range Interpretation Comments Eosinophils (test code = 4.5 See_Comment [A utomated message] The Eosinophils) system which ge nerated this result tra nsmitted reference range : <=4.0. The reference r david was not used to int erpret this result as normal/abnormal . [facility] HospitalRmbdwykTXIGFKEWVG2477-19-20 08:43:00 Test Item Value Reference Range Interpretation Comments Segs (test code = Segs) 29.5 45.0-75.0 [facility] HospitalEeypmwzPBFSUTIPTF3908-53-85 08:43:00 Test Item Value Reference Range Interpretation Comments Lymphocytes (test code = Lymphocytes) 53.7 20.0-40.0 [facility] HospitalJvvyocwKWHUIJBUKG2866-44-21 08:43:00 Test Item Value Reference Range Interpretation Comments Monocytes (test code = Monocytes) 10.9 2.0-12.0 [facility] HospitalSqsmbxrQPMGNIADSQ4359-18-37 08:43:00 Test Item Value Reference Range Interpretation Comments Eosinophils # (test code 0.3 See_Comment [A utomated message] The = Eosinophils #) system whic h generated this result tra nsmitted reference range : <=0.5. The reference r david was not used to int erpret this result as normal/abnormal . [facility] HospitalSiubunyMYOMFWMCOO4100-65-54 08:43:00 Test Item Value Reference Range Interpretation Comments Basophils # (test code 0.1 See_Comment [Aut omated message] The = Basophils #) system which generated this result tra nsmitted reference range : <=0.2. The reference r david was not used to int erpret this result as normal/abnormal . [facility] HospitalXkhuhytWJAKFRREVE8645-42-29 08:43:00 Test Item Value Reference Range Interpretation Comments Segs-Bands # (test code = Segs-Bands #) 2.0 1.5-8.1 [facility] HospitalYmwrfiyVFENMIECGP1497-07-34 08:43:00 Test Item Value Reference Range Interpretation Comments Lymphocytes # (test code = Lymphocytes 3.6 1.0-5.5 #) [id number] 08:43:00 Test Item Value Reference Range Interpretation Comments Monocytes # (test code 0.7 See_Comment [Aut omated message] The = Monocytes #) system which generated this result tra nsmitted reference range : <=0.8. The reference r david was not used to int erpret this result as normal/abnormal . [facility]CxjqqdeMYMEUYVLEC6066-43-59 08:43:00 Test Item Value Reference Range Interpretation Comments Basophils (test code = 1.4 See_Comment [Aut omated message] The Basophils) system which ge nerated this result tra nsmitted reference range : <=1.0. The reference r david was not used to int erpret this result as normal/abnormal . [facility]2017-01-28 08:43:00 Test Item Value Reference Range Interpretation Comments eGFR (test code = eGFR) 100 [facility]2017-01-28 08:43:00 Test Item Value Reference Range Interpretation Comments Potassium Lvl (test code = Potassium 3.8 3.5-5.1 Lvl) [facility]2017-01-28 08:43:00 Test Item Value Reference Range Interpretation Comments Chloride Lvl (test code = Chloride Lvl) 99 95-109 [facility]2017-01-28 08:43:00 Test Item Value Reference Range Interpretation Comments CO2 (test code = CO2) 30 24-32 [facility]2017-01-28 08:43:00 Test Item Value Reference Range Interpretation Comments Alk Phos (test code = Alk Phos) 89 39-136 [facility]2017-01-28 08:43:00 Test Item Value Reference Range Interpretation Comments AST (test code = AST) 20 See_Comment [Auto mated message] The system which ge nerated this result transmit anjelica reference range : <=37. The reference range was not used to interpr et this result as randa l/abnormal. [facility]2017-01-28 08:43:00 Test Item Value Reference Range Interpretation Comments Bili Total (test code = Bili Total) 0.3 0.2-1.3 [facility]2017-01-28 08:43:00 Test Item Value Reference Range Interpretation Comments ALT (test code = ALT) 37 See_Comment [Auto mated message] The system which ge nerated this result transmit anjelica reference range : <=65. The reference range was not used to interpr et this result as randa l/abnormal. [facility]2017-01-28 08:43:00 Test Item Value Reference Range Interpretation Comments Albumin Lvl (test code = Albumin Lvl) 3.5 3.5-5.0 [facility]2017-01-28 08:43:00 Test Item Value Reference Range Interpretation Comments Total Protein (test code = Total 7.0 6.4-8.4 Protein) [facility]2017-01-28 08:43:00 Test Item Value Reference Range Interpretation Comments Calcium Lvl (test code = Calcium Lvl) 8.6 8.5-10.5 [facility]2017-01-28 08:43:00 Test Item Value Reference Range Interpretation Comments BUN (test code = BUN) 11 7-22 [facility]2017-01-28 08:43:00 Test Item Value Reference Range Interpretation Comments Sodium Lvl (test code = Sodium Lvl) 137 135-145 [facility]2017-01-28 08:43:00 Test Item Value Reference Range Interpretation Comments Creatinine Lvl (test code = Creatinine 0.90 0.50-1.40 Lvl) [facility]2017-01-28 08:43:00 Test Item Value Reference Range Interpretation Comments Glucose Lvl (test code = Glucose Lvl) 226 70-99 [facility]2017-01-28 08:43:00 Test Item Value Reference Range Interpretation Comments A/G Ratio (test code = A/G Ratio) 1.0 0.7-1.6 [facility]2017-01-28 08:43:00 Test Item Value Reference Range Interpretation Comments AGAP (test code = AGAP) 11.8 10.0-20.0 [facility]2017-01-28 08:43:00 Test Item Value Reference Range Interpretation Comments Globulin (test code = Globulin) 3.5 2.7-4.2 [facility]2017-01-28 08:43:00 Test Item Value Reference Range Interpretation Comments B/C Ratio (test code = B/C Ratio) 12 6- [facility] HospitalEixamwtDFJBVWGKGC1080-67-68 08:43:00 Test Item Value Reference Range Interpretation Comments MPV (test code = MPV) 7.8 7.4-10.4 [facility] HospitalVwmlmhjEFXKOTFAQM3592-71-01 08:43:00 Test Item Value Reference Range Interpretation Comments RBC (test code = RBC) 5.38 4.70-6.10 [facility] HospitalKylxjyuXPVXJWCNOA1393-75-71 08:43:00 Test Item Value Reference Range Interpretation Comments Hgb (test code = Hgb) 14.8 14.0-18.0 [facility] HospitalIqhyrlmWGUZETMLLH5208-44-13 08:43:00 Test Item Value Reference Range Interpretation Comments Hct (test code = Hct) 43.7 42.0-54.0 [facility] HospitalEvmxihiKPFADNPMPQ6559-25-42 08:43:00 Test Item Value Reference Range Interpretation Comments WBC (test code = WBC) 6.7 3.7-10.4 [facility] HospitalKgclnqeRINSAISEPR0613-83-00 08:43:00 Test Item Value Reference Range Interpretation Comments RDW (test code = RDW) 14.0 11.5-14.5 [facility] HospitalScmvmliNAENFJWLSH6894-36-61 08:43:00 Test Item Value Reference Range Interpretation Comments MCHC (test code = MCHC) 33.9 32.0-36.0 [facility] HospitalMnxthswCXOLOLWBOK7828-84-52 08:43:00 Test Item Value Reference Range Interpretation Comments Platelet (test code = Platelet) 201 133-450 [facility] HospitalPkeubbtBHIERFLPBW4245-78-67 08:43:00 Test Item Value Reference Range Interpretation Comments MCH (test code = MCH) 27.5 pg 27.0-31.0 [facility] HospitalVgjipyrOIWCNEROFR2729-52-21 08:43:00 Test Item Value Reference Range Interpretation Comments MCV (test code = MCV) 81.2 80.0-94.0 [facility] HospitalBnatvxvENFFHMJLII7668-26-41 08:43:00 Test Item Value Reference Range Interpretation Comments Eosinophils (test code = 4.5 See_Comment [A utomated message] The Eosinophils) system which ge nerated this result tra nsmitted reference range : <=4.0. The reference r david was not used to int erpret this result as normal/abnormal . [facility] HospitalBianbudVAHQZIULUD8252-15-20 08:43:00 Test Item Value Reference Range Interpretation Comments Segs (test code = Segs) 29.5 45.0-75.0 [facility] HospitalVgrwzrqITEEFIJTZR7508-71-54 08:43:00 Test Item Value Reference Range Interpretation Comments Lymphocytes (test code = Lymphocytes) 53.7 20.0-40.0 [facility] HospitalTpabxebNRJSQQJHNC5796-48-46 08:43:00 Test Item Value Reference Range Interpretation Comments Monocytes (test code = Monocytes) 10.9 2.0-12.0 [facility] HospitalBpqwcplOVVWSKILVY5350-89-55 08:43:00 Test Item Value Reference Range Interpretation Comments Eosinophils # (test code 0.3 See_Comment [A utomated message] The = Eosinophils #) system whic h generated this result tra nsmitted reference range : <=0.5. The reference r david was not used to int erpret this result as normal/abnormal . [facility] HospitalPjkmyxpPQUCVYJMFZ8152-45-16 08:43:00 Test Item Value Reference Range Interpretation Comments Basophils # (test code 0.1 See_Comment [Aut omated message] The = Basophils #) system which generated this result tra nsmitted reference range : <=0.2. The reference r david was not used to int erpret this result as normal/abnormal . [facility] HospitalFmhrgtoGLTJYLNUPQ2514-93-09 08:43:00 Test Item Value Reference Range Interpretation Comments Segs-Bands # (test code = Segs-Bands #) 2.0 1.5-8.1 [facility] HospitalIyjgeqeUZHHXWZDNT0411-12-18 08:43:00 Test Item Value Reference Range Interpretation Comments Lymphocytes # (test code = Lymphocytes 3.6 1.0-5.5 #) [facility] HospitalVvwovijUGOUTPMFGS3488-06-56 08:43:00 Test Item Value Reference Range Interpretation Comments Monocytes # (test code 0.7 See_Comment [Aut omated message] The = Monocytes #) system which generated this result tra nsmitted reference range : <=0.8. The reference r david was not used to int erpret this result as normal/abnormal . [facility] HospitalNcghfyaUJREJHJXPL1495-88-92 08:43:00 Test Item Value Reference Range Interpretation Comments Basophils (test code = 1.4 See_Comment [Aut omated message] The Basophils) system which ge nerated this result tra nsmitted reference range : <=1.0. The reference r david was not used to int erpret this result as normal/abnormal . [facility]2017-01-18 16:58:00 Test Item Value Reference Range Interpretation Comments eGFR (test code = eGFR) 100 [facility]2017-01-18 16:58:00 Test Item Value Reference Range Interpretation Comments Bili Total (test code = Bili Total) 0.2 0.2-1.3 [facility]2017-01-18 16:58:00 Test Item Value Reference Range Interpretation Comments CO2 (test code = CO2) 27 24-32 [facility]2017-01-18 16:58:00 Test Item Value Reference Range Interpretation Comments Potassium Lvl (test code = Potassium 4.1 3.5-5.1 Lvl) [facility]2017-01-18 16:58:00 Test Item Value Reference Range Interpretation Comments BUN (test code = BUN) 11 7-22 [facility]2017-01-18 16:58:00 Test Item Value Reference Range Interpretation Comments Chloride Lvl (test code = Chloride Lvl) 98 95-109 [facility]2017-01-18 16:58:00 Test Item Value Reference Range Interpretation Comments Sodium Lvl (test code = Sodium Lvl) 136 135-145 [facility]2017-01-18 16:58:00 Test Item Value Reference Range Interpretation Comments Creatinine Lvl (test code = Creatinine 0.90 0.50-1.40 Lvl) [facility]2017-01-18 16:58:00 Test Item Value Reference Range Interpretation Comments Alk Phos (test code = Alk Phos) 80 39-136 [facility]2017-01-18 16:58:00 Test Item Value Reference Range Interpretation Comments AST (test code = AST) 29 See_Comment [Auto mated message] The system which ge nerated this result transmit anjelica reference range : <=37. The reference range was not used to interpr et this result as randa l/abnormal. [facility]2017-01-18 16:58:00 Test Item Value Reference Range Interpretation Comments Albumin Lvl (test code = Albumin Lvl) 3.6 3.5-5.0 [facility]2017-01-18 16:58:00 Test Item Value Reference Range Interpretation Comments Calcium Lvl (test code = Calcium Lvl) 8.8 8.5-10.5 [facility]2017-01-18 16:58:00 Test Item Value Reference Range Interpretation Comments ALT (test code = ALT) 40 See_Comment [Auto mated message] The system which ge nerated this result transmit anjelica reference range : <=65. The reference range was not used to interpr et this result as randa l/abnormal. [facility]2017-01-18 16:58:00 Test Item Value Reference Range Interpretation Comments Total Protein (test code = Total 7.2 6.4-8.4 Protein) [facility]2017-01-18 16:58:00 Test Item Value Reference Range Interpretation Comments Glucose Lvl (test code = Glucose Lvl) 289 70-99 [facility]2017-01-18 16:58:00 Test Item Value Reference Range Interpretation Comments Globulin (test code = Globulin) 3.6 2.7-4.2 [facility]2017-01-18 16:58:00 Test Item Value Reference Range Interpretation Comments AGAP (test code = AGAP) 15.1 10.0-20.0 [facility]2017-01-18 16:58:00 Test Item Value Reference Range Interpretation Comments A/G Ratio (test code = A/G Ratio) 1.0 0.7-1.6 [facility] [id number] 16:58:00 Test Item Value Reference Range Interpretation Comments B/C Ratio (test code = B/C Ratio) 12 6-25 [facility]2017-01-18 16:58:00 Test Item Value Reference Range Interpretation Comments Lipase Lvl (test code = Lipase Lvl) 199 73-393 [facility] HospitalYixcyiqKQOOEDQFKD3418-39-16 16:58:00 Test Item Value Reference Range Interpretation Comments MCHC (test code = MCHC) 33.7 32.0-36.0 [facility] HospitalVnrlbtmYPZQGNHWGU7417-39-46 16:58:00 Test Item Value Reference Range Interpretation Comments RDW (test code = RDW) 14.6 11.5-14.5 [facility] HospitalRchmxflTCYEKBPTZY3389-35-88 16:58:00 Test Item Value Reference Range Interpretation Comments Platelet (test code = Platelet) 186 133-450 [facility] HospitalTxftmbiMZTRZYRNXB1504-66-77 16:58:00 Test Item Value Reference Range Interpretation Comments MCV (test code = MCV) 82.6 80.0-94.0 [facility] HospitalRgihxglTTCXEMYLFS0456-18-72 16:58:00 Test Item Value Reference Range Interpretation Comments MPV (test code = MPV) 8.3 7.4-10.4 [facility] HospitalQzfnfdrPCWXNCQJKF8541-99-56 16:58:00 Test Item Value Reference Range Interpretation Comments MCH (test code = MCH) 27.9 pg 27.0-31.0 [facility] HospitalTrxmghzSOTKZGENCY4925-91-79 16:58:00 Test Item Value Reference Range Interpretation Comments Hct (test code = Hct) 43.8 42.0-54.0 [facility] HospitalXkttaseAATWTCGCXQ4909-12-98 16:58:00 Test Item Value Reference Range Interpretation Comments Hgb (test code = Hgb) 14.8 14.0-18.0 [facility] HospitalMzzpokqWCHXJVPOLI9582-46-07 16:58:00 Test Item Value Reference Range Interpretation Comments RBC (test code = RBC) 5.31 4.70-6.10 [facility] HospitalJsxdgsiLUCKKAXGCD2937-64-74 16:58:00 Test Item Value Reference Range Interpretation Comments WBC (test code = WBC) 5.7 3.7-10.4 [facility] HospitalLarvtvqKQUZAVPAIF8827-22-41 16:58:00 Test Item Value Reference Range Interpretation Comments Eosinophils # (test code 0.4 See_Comment [A utomated message] The = Eosinophils #) system whic h generated this result tra nsmitted reference range : <=0.5. The reference r david was not used to int erpret this result as normal/abnormal . [facility] HospitalYperqeyUVPLBOJBEG6689-70-13 16:58:00 Test Item Value Reference Range Interpretation Comments Basophils # (test code 0.1 See_Comment [Aut omated message] The = Basophils #) system which generated this result tra nsmitted reference range : <=0.2. The reference r david was not used to int erpret this result as normal/abnormal . [facility] HospitalPbkasrcEIEZHJKRXT4185-02-51 16:58:00 Test Item Value Reference Range Interpretation Comments Segs (test code = Segs) 35.9 45.0-75.0 [facility] HospitalErugdhaTUREXBOISL6009-93-85 16:58:00 Test Item Value Reference Range Interpretation Comments Lymphocytes (test code = Lymphocytes) 45.3 20.0-40.0 [facility] HospitalSpqgktyJOMNAEFVMP8321-22-88 16:58:00 Test Item Value Reference Range Interpretation Comments Monocytes (test code = Monocytes) 9.5 2.0-12.0 [facility] HospitalKlsannrTIEHYATTIU7540-44-41 16:58:00 Test Item Value Reference Range Interpretation Comments Eosinophils (test code = 7.9 See_Comment [A utomated message] The Eosinophils) system which ge nerated this result tra nsmitted reference range : <=4.0. The reference r david was not used to int erpret this result as normal/abnormal . [facility] HospitalFheyypkVFXKFFULRW7219-47-65 16:58:00 Test Item Value Reference Range Interpretation Comments Basophils (test code = 1.4 See_Comment [Aut omated message] The Basophils) system which ge nerated this result tra nsmitted reference range : <=1.0. The reference r david was not used to int erpret this result as normal/abnormal . [facility] HospitalJdyjcqhSDKCBBYXFE2460-89-52 16:58:00 Test Item Value Reference Range Interpretation Comments Segs-Bands # (test code = Segs-Bands #) 2.0 1.5-8.1 [facility] HospitalRmcxfnzDCGNKCAMZU6748-66-82 16:58:00 Test Item Value Reference Range Interpretation Comments Monocytes # (test code 0.5 See_Comment [Aut omated message] The = Monocytes #) system which generated this result tra nsmitted reference range : <=0.8. The reference r david was not used to int erpret this result as normal/abnormal . [facility] HospitalHjmvssbMOVNTJTIYR6066-87-52 16:58:00 Test Item Value Reference Range Interpretation Comments Lymphocytes # (test code = Lymphocytes 2.6 1.0-5.5 #) [facility] AND [id number] 16:58:00 Test Item Value Reference Range Interpretation Comments UA Color (test code = UA Color) Ltyellow [facility] AND [id number] 16:58:00 Test Item Value Reference Range Interpretation Comments UA Urobilinogen (test code = UA <=1.0 mg/dL 0.1-1.0 Urobilinogen) [facility] AND [id number] 16:58:00 Test Item Value Reference Range Interpretation Comments UA Glucose (test code = UA Glucose) 500 mg/dL [facility] AND [id number] 16:58:00 Test Item Value Reference Range Interpretation Comments UA Ketones (test code = UA Trace mg/dL Ketones) [facility] AND [id number] 16:58:00 Test Item Value Reference Range Interpretation Comments UA Bili (test code = Negative *NA*(11/03/16 UA Bili) 10:58 AM) [facility] AND [id number] 16:58:00 Test Item Value Reference Range Interpretation Comments UA Nitrite (test code Negative (11/03/16 10:58 = UA Nitrite) AM) [facility] AND [id number] 16:58:00 Test Item Value Reference Range Interpretation Comments UA Blood (test code = Negative (11/03/16 10:58 UA Blood) AM) [facility] AND [id number] 16:58:00 Test Item Value Reference Range Interpretation Comments UA Leuk Est (test Negative (11/03/16 10:58 code = UA Leuk Est) AM) [facility] AND [id number] 16:58:00 Test Item Value Reference Range Interpretation Comments UA Sq Epi (test code = UA Sq Occasional /LPF Epi) [facility] AND [id number] 16:58:00 Test Item Value Reference Range Interpretation Comments UA pH (test code = UA pH) 5.0 5.0-8.0 [facility] AND [id number] 16:58:00 Test Item Value Reference Range Interpretation Comments UA Turbidity (test code = Clear (11/03/16 10:58 UA Turbidity) AM) [facility] AND [id number] 16:58:00 Test Item Value Reference Range Interpretation Comments UA Spec Grav (test code = UA Spec Grav) 1.027 [facility] AND [id number] 16:58:00 Test Item Value Reference Range Interpretation Comments UA Protein (test code = UA Negative mg/dL Protein) [facility]2017-01-18 16:58:00 Test Item Value Reference Range Interpretation Comments eGFR (test code = eGFR) 100 [facility]2017-01-18 16:58:00 Test Item Value Reference Range Interpretation Comments Bili Total (test code = Bili Total) 0.2 0.2-1.3 [facility]2017-01-18 16:58:00 Test Item Value Reference Range Interpretation Comments CO2 (test code = CO2) 27 24-32 [facility]2017-01-18 16:58:00 Test Item Value Reference Range Interpretation Comments Potassium Lvl (test code = Potassium 4.1 3.5-5.1 Lvl) [facility]2017-01-18 16:58:00 Test Item Value Reference Range Interpretation Comments BUN (test code = BUN) 11 7-22 [facility]2017-01-18 16:58:00 Test Item Value Reference Range Interpretation Comments Chloride Lvl (test code = Chloride Lvl) 98 95-109 [facility]2017-01-18 16:58:00 Test Item Value Reference Range Interpretation Comments Sodium Lvl (test code = Sodium Lvl) 136 135-145 [facility]2017-01-18 16:58:00 Test Item Value Reference Range Interpretation Comments Creatinine Lvl (test code = Creatinine 0.90 0.50-1.40 Lvl) [facility]2017-01-18 16:58:00 Test Item Value Reference Range Interpretation Comments Alk Phos (test code = Alk Phos) 80 39-136 [facility]2017-01-18 16:58:00 Test Item Value Reference Range Interpretation Comments AST (test code = AST) 29 See_Comment [Auto mated message] The system which ge nerated this result transmit anjelica reference range : <=37. The reference range was not used to interpr et this result as randa l/abnormal. [facility]2017-01-18 16:58:00 Test Item Value Reference Range Interpretation Comments Albumin Lvl (test code = Albumin Lvl) 3.6 3.5-5.0 [facility]2017-01-18 16:58:00 Test Item Value Reference Range Interpretation Comments Calcium Lvl (test code = Calcium Lvl) 8.8 8.5-10.5 [facility]2017-01-18 16:58:00 Test Item Value Reference Range Interpretation Comments ALT (test code = ALT) 40 See_Comment [Auto mated message] The system which ge nerated this result transmit anjelica reference range : <=65. The reference range was not used to interpr et this result as randa l/abnormal. [facility]2017-01-18 16:58:00 Test Item Value Reference Range Interpretation Comments Total Protein (test code = Total 7.2 6.4-8.4 Protein) [facility]2017-01-18 16:58:00 Test Item Value Reference Range Interpretation Comments Glucose Lvl (test code = Glucose Lvl) 289 70-99 [facility]2017-01-18 16:58:00 Test Item Value Reference Range Interpretation Comments Globulin (test code = Globulin) 3.6 2.7-4.2 [facility]2017-01-18 16:58:00 Test Item Value Reference Range Interpretation Comments AGAP (test code = AGAP) 15.1 10.0-20.0 [facility]2017-01-18 16:58:00 Test Item Value Reference Range Interpretation Comments A/G Ratio (test code = A/G Ratio) 1.0 0.7-1.6 [facility]2017-01-18 16:58:00 Test Item Value Reference Range Interpretation Comments B/C Ratio (test code = B/C Ratio) 12 6-25 [facility]2017-01-18 16:58:00 Test Item Value Reference Range Interpretation Comments Lipase Lvl (test code = Lipase Lvl) 199 73-393 [facility] HospitalJhmfoknKJPXGIOJEO0421-05-59 16:58:00 Test Item Value Reference Range Interpretation Comments MCHC (test code = MCHC) 33.7 32.0-36.0 [facility] HospitalRvilyqyOTCTQPABCH1423-24-93 16:58:00 Test Item Value Reference Range Interpretation Comments RDW (test code = RDW) 14.6 11.5-14.5 [facility] HospitalWbhopcsTPUWFYUXAO9911-55-02 16:58:00 Test Item Value Reference Range Interpretation Comments Platelet (test code = Platelet) 186 133-450 [facility] HospitalPebbwxaLMKYERYDEU9953-61-21 16:58:00 Test Item Value Reference Range Interpretation Comments MCV (test code = MCV) 82.6 80.0-94.0 [facility] HospitalKcycaltFOXKHPAPOJ7462-53-13 16:58:00 Test Item Value Reference Range Interpretation Comments MPV (test code = MPV) 8.3 7.4-10.4 [facility] HospitalCknwutrXAGEROBYHZ6895-60-72 16:58:00 Test Item Value Reference Range Interpretation Comments MCH (test code = MCH) 27.9 pg 27.0-31.0 [facility] HospitalYvupjygVRYRLNBQNA7727-49-11 16:58:00 Test Item Value Reference Range Interpretation Comments Hct (test code = Hct) 43.8 42.0-54.0 [facility] HospitalEydzzpgTSBPXCCUQG1634-55-91 16:58:00 Test Item Value Reference Range Interpretation Comments Hgb (test code = Hgb) 14.8 14.0-18.0 [facility] HospitalBkjgukmOUETXQDWUL6507-11-47 16:58:00 Test Item Value Reference Range Interpretation Comments RBC (test code = RBC) 5.31 4.70-6.10 [facility] HospitalSzamyxfVIRQDBXYUF5121-82-40 16:58:00 Test Item Value Reference Range Interpretation Comments WBC (test code = WBC) 5.7 3.7-10.4 [facility] HospitalUsnixbsNFYGCDBAEQ0518-75-34 16:58:00 Test Item Value Reference Range Interpretation Comments Eosinophils # (test code 0.4 See_Comment [A utomated message] The = Eosinophils #) system ic h generated this result tra nsmitted reference range : <=0.5. The reference r david was not used to int erpret this result as normal/abnormal . [facility] HospitalRbrtijiECENJFFEXE4672-56-62 16:58:00 Test Item Value Reference Range Interpretation Comments Basophils # (test code 0.1 See_Comment [Aut omated message] The = Basophils #) system which generated this result tra nsmitted reference range : <=0.2. The reference r david was not used to int erpret this result as normal/abnormal . [facility] HospitalRvnmuwpXFKWUNQZKU9722-32-81 16:58:00 Test Item Value Reference Range Interpretation Comments Segs (test code = Segs) 35.9 45.0-75.0 [facility] HospitalTuhmwzhRVWZOMTEEE2859-29-41 16:58:00 Test Item Value Reference Range Interpretation Comments Lymphocytes (test code = Lymphocytes) 45.3 20.0-40.0 [id number] 16:58:00 Test Item Value Reference Range Interpretation Comments Monocytes (test code = Monocytes) 9.5 2.0-12.0 [facility] HospitalVlmvhyuHQILEEZQGR7505-41-13 16:58:00 Test Item Value Reference Range Interpretation Comments Eosinophils (test code = 7.9 See_Comment [A utomated message] The Eosinophils) system which ge nerated this result tra nsmitted reference range : <=4.0. The reference r david was not used to int erpret this result as normal/abnormal . [facility] HospitalYtcsazcMXMOWAVWJE3900-16-80 16:58:00 Test Item Value Reference Range Interpretation Comments Basophils (test code = 1.4 See_Comment [Aut omated message] The Basophils) system which ge nerated this result tra nsmitted reference range : <=1.0. The reference r david was not used to int erpret this result as normal/abnormal . [facility] Hospit[id number] 16:58:00 Test Item Value Reference Range Interpretation Comments Segs-Bands # (test code = Segs-Bands #) 2.0 1.5-8.1 [facility] H[id number] 16:58:00 Test Item Value Reference Range Interpretation Comments Monocytes # (test code 0.5 See_Comment [Aut omated message] The = Monocytes #) system which generated this result tra nsmitted reference range : <=0.8. The reference r david was not used to int erpret this result as normal/abnormal . [facility] CenterHskrfaxSRRUMOTZVC7105-45-63 16:58:00 Test Item Value Reference Range Interpretation Comments Lymphocytes # (test code = Lymphocytes 2.6 1.0-5.5 #) [facility] AND [id number] 16:58:00 Test Item Value Reference Range Interpretation Comments UA Color (test code = UA Color) Ltyellow [facility] AND [id number] 16:58:00 Test Item Value Reference Range Interpretation Comments UA Urobilinogen (test code = UA <=1.0 mg/dL 0.1-1.0 Urobilinogen) [facility]ly [facility] AND [id number] 16:58:00 Test Item Value Reference Range Interpretation Comments UA Glucose (test code = UA Glucose) 500 mg/dL [facility] AND [id number] 16:58:00 Test Item Value Reference Range Interpretation Comments UA Ketones (test code = UA Trace mg/dL Ketones) [facility] AND [id number] 16:58:00 Test Item Value Reference Range Interpretation Comments UA Bili (test code = Negative *NA*(11/03/16 UA Bili) 10:58 AM) [facility] AND [id number] 16:58:00 Test Item Value Reference Range Interpretation Comments UA Nitrite (test code Negative (11/03/16 10:58 = UA Nitrite) AM) [facility] AND [id number] 16:58:00 Test Item Value Reference Range Interpretation Comments UA Blood (test code = Negative (11/03/16 10:58 UA Blood) AM) [facility] AND [id number] 16:58:00 Test Item Value Reference Range Interpretation Comments UA Leuk Est (test Negative (11/03/16 10:58 code = UA Leuk Est) AM) [facility] AND [id number] 16:58:00 Test Item Value Reference Range Interpretation Comments UA Sq Epi (test code = UA Sq Occasional /LPF Epi) [facility] AND [id number] 16:58:00 Test Item Value Reference Range Interpretation Comments UA pH (test code = UA pH) 5.0 5.0-8.0 [facility] AND [id number] 16:58:00 Test Item Value Reference Range Interpretation Comments UA Turbidity (test code = Clear (11/03/16 10:58 UA Turbidity) AM) [facility] AND [id number] 16:58:00 Test Item Value Reference Range Interpretation Comments UA Spec Grav (test code = UA Spec Grav) 1.027 [facility] AND [id number] 16:58:00 Test Item Value Reference Range Interpretation Comments UA Protein (test code = UA Negative mg/dL Protein) [facility]2017-01-18 16:58:00 Test Item Value Reference Range Interpretation Comments eGFR (test code = eGFR) 100 [facility]2017-01-18 16:58:00 Test Item Value Reference Range Interpretation Comments Bili Total (test code = Bili Total) 0.2 0.2-1.3 [facility]2017-01-18 16:58:00 Test Item Value Reference Range Interpretation Comments CO2 (test code = CO2) 27 24-32 [facility]2017-01-18 16:58:00 Test Item Value Reference Range Interpretation Comments Potassium Lvl (test code = Potassium 4.1 3.5-5.1 Lvl) [facility]2017-01-18 16:58:00 Test Item Value Reference Range Interpretation Comments BUN (test code = BUN) 11 7-22 [facility]2017-01-18 16:58:00 Test Item Value Reference Range Interpretation Comments Chloride Lvl (test code = Chloride Lvl) 98 95-109 [facility]2017-01-18 16:58:00 Test Item Value Reference Range Interpretation Comments Sodium Lvl (test code = Sodium Lvl) 136 135-145 [facility]2017-01-18 16:58:00 Test Item Value Reference Range Interpretation Comments Creatinine Lvl (test code = Creatinine 0.90 0.50-1.40 Lvl) [facility]2017-01-18 16:58:00 Test Item Value Reference Range Interpretation Comments Alk Phos (test code = Alk Phos) 80 39-136 [facility]2017-01-18 16:58:00 Test Item Value Reference Range Interpretation Comments AST (test code = AST) 29 See_Comment [Auto mated message] The system which ge nerated this result transmit anjelica reference range : <=37. The reference range was not used to interpr et this result as randa l/abnormal. [facility]2017-01-18 16:58:00 Test Item Value Reference Range Interpretation Comments Albumin Lvl (test code = Albumin Lvl) 3.6 3.5-5.0 [facility]2017-01-18 16:58:00 Test Item Value Reference Range Interpretation Comments Calcium Lvl (test code = Calcium Lvl) 8.8 8.5-10.5 [facility]2017-01-18 16:58:00 Test Item Value Reference Range Interpretation Comments ALT (test code = ALT) 40 See_Comment [Auto mated message] The system which ge nerated this result transmit anjelica reference range : <=65. The reference range was not used to interpr et this result as randa l/abnormal. [facility]2017-01-18 16:58:00 Test Item Value Reference Range Interpretation Comments Total Protein (test code = Total 7.2 6.4-8.4 Protein) [facility]2017-01-18 16:58:00 Test Item Value Reference Range Interpretation Comments Glucose Lvl (test code = Glucose Lvl) 289 70-99 [facility]2017-01-18 16:58:00 Test Item Value Reference Range Interpretation Comments Globulin (test code = Globulin) 3.6 2.7-4.2 [facility]2017-01-18 16:58:00 Test Item Value Reference Range Interpretation Comments AGAP (test code = AGAP) 15.1 10.0-20.0 [facility]2017-01-18 16:58:00 Test Item Value Reference Range Interpretation Comments A/G Ratio (test code = A/G Ratio) 1.0 0.7-1.6 [facility]2017-01-18 16:58:00 Test Item Value Reference Range Interpretation Comments B/C Ratio (test code = B/C Ratio) 12 6-25 [facility]2017-01-18 16:58:00 Test Item Value Reference Range Interpretation Comments Lipase Lvl (test code = Lipase Lvl) 199 73-393 [facility] HospitalHezoolsZTYUNWEQBH7050-78-06 16:58:00 Test Item Value Reference Range Interpretation Comments MCHC (test code = MCHC) 33.7 32.0-36.0 [facility] HospitalQcobuznLLWDQCNLIY6646-70-11 16:58:00 Test Item Value Reference Range Interpretation Comments RDW (test code = RDW) 14.6 11.5-14.5 [facility] HospitalKgrgshwLVFXVTJQEY7317-31-66 16:58:00 Test Item Value Reference Range Interpretation Comments Platelet (test code = Platelet) 186 133-450 [facility] HospitalPxvsfziMPFXPLGRSL0576-15-78 16:58:00 Test Item Value Reference Range Interpretation Comments MCV (test code = MCV) 82.6 80.0-94.0 [facility] HospitalRjsczkzVJALZYOQSK5233-24-02 16:58:00 Test Item Value Reference Range Interpretation Comments MPV (test code = MPV) 8.3 7.4-10.4 [facility] HospitalTqkivtoWYMQTXQUON2060-72-60 16:58:00 Test Item Value Reference Range Interpretation Comments MCH (test code = MCH) 27.9 pg 27.0-31.0 [facility] HospitalWyyfpzeOSRXOWNXQL4522-25-81 16:58:00 Test Item Value Reference Range Interpretation Comments Hct (test code = Hct) 43.8 42.0-54.0 [facility] HospitalFxrmzmpLMWUSOFAHC4394-07-95 16:58:00 Test Item Value Reference Range Interpretation Comments Hgb (test code = Hgb) 14.8 14.0-18.0 [facility] HospitalWonhcooLYIFETBHCI4461-71-39 16:58:00 Test Item Value Reference Range Interpretation Comments RBC (test code = RBC) 5.31 4.70-6.10 [facility] Hos[id number] 16:58:00 Test Item Value Reference Range Interpretation Comments WBC (test code = WBC) 5.7 3.7-10.4 [facility] Hos[id number] 16:58:00 Test Item Value Reference Range Interpretation Comments Eosinophils # (test code 0.4 See_Comment [A utomated message] The = Eosinophils #) system whic h generated this result tra nsmitted reference range : <=0.5. The reference r david was not used to int erpret this result as normal/abnormal . [facility] HospitalBmjyispOAYADQYHIQ1801-56-52 16:58:00 Test Item Value Reference Range Interpretation Comments Basophils # (test code 0.1 See_Comment [Aut omated message] The = Basophils #) system which generated this result tra nsmitted reference range : <=0.2. The reference r david was not used to int erpret this result as normal/abnormal . [facility] HospitalBogsyogUFFYCSMNQI8593-07-29 16:58:00 Test Item Value Reference Range Interpretation Comments Segs (test code = Segs) 35.9 45.0-75.0 [facility] Hospit[id number] 16:58:00 Test Item Value Reference Range Interpretation Comments Lymphocytes (test code = Lymphocytes) 45.3 20.0-40.0 [facility] HospitalWkxhzzpXQACSANAPS0801-29-98 16:58:00 Test Item Value Reference Range Interpretation Comments Monocytes (test code = Monocytes) 9.5 2.0-12.0 [facility] HospitalXgtnnonFOWPTAVWGL0067-15-37 16:58:00 Test Item Value Reference Range Interpretation Comments Eosinophils (test code = 7.9 See_Comment [A utomated message] The Eosinophils) system which ge nerated this result tra nsmitted reference range : <=4.0. The reference r david was not used to int erpret this result as normal/abnormal . [facility] HospitalZyvozmbERJBIWEACV5874-76-32 16:58:00 Test Item Value Reference Range Interpretation Comments Basophils (test code = 1.4 See_Comment [Aut omated message] The Basophils) system which ge nerated this result tra nsmitted reference range : <=1.0. The reference r david was not used to int erpret this result as normal/abnormal . [facility] HospitalYafiyqzTKJKUVGRTG8610-15-63 16:58:00 Test Item Value Reference Range Interpretation Comments Segs-Bands # (test code = Segs-Bands #) 2.0 1.5-8.1 [facility] Hos[id number] 16:58:00 Test Item Value Reference Range Interpretation Comments Monocytes # (test code 0.5 See_Comment [Aut omated message] The = Monocytes #) system which generated this result tra nsmitted reference range : <=0.8. The reference r david was not used to int erpret this result as normal/abnormal . [facility] Hospit[id number] 16:58:00 Test Item Value Reference Range Interpretation Comments Lymphocytes # (test code = Lymphocytes 2.6 1.0-5.5 #) [facility] AND [id number] 16:58:00 Test Item Value Reference Range Interpretation Comments UA Color (test code = UA Color) Ltyellow [facility] AND [id number] 16:58:00 Test Item Value Reference Range Interpretation Comments UA Urobilinogen (test code = UA <=1.0 mg/dL 0.1-1.0 Urobilinogen) [facility] AND [id number] 16:58:00 Test Item Value Reference Range Interpretation Comments UA Glucose (test code = UA Glucose) 500 mg/dL [facility] AND [id number] 16:58:00 Test Item Value Reference Range Interpretation Comments UA Ketones (test code = UA Trace mg/dL Ketones) [facility] AND [id number] 16:58:00 Test Item Value Reference Range Interpretation Comments UA Bili (test code = Negative *NA*(11/03/16 UA Bili) 10:58 AM) [facility] AND [id number] 16:58:00 Test Item Value Reference Range Interpretation Comments UA Nitrite (test code Negative (11/03/16 10:58 = UA Nitrite) AM) [facility] AND [id number] 16:58:00 Test Item Value Reference Range Interpretation Comments UA Blood (test code = Negative (11/03/16 10:58 UA Blood) AM) [facility] AND [id number] 16:58:00 Test Item Value Reference Range Interpretation Comments UA Leuk Est (test Negative (11/03/16 10:58 code = UA Leuk Est) AM) [facility] AND [id number] 16:58:00 Test Item Value Reference Range Interpretation Comments UA Sq Epi (test code = UA Sq Occasional /LPF Epi) [facility] AND [id number] 16:58:00 Test Item Value Reference Range Interpretation Comments UA pH (test code = UA pH) 5.0 5.0-8.0 [facility] AND [id number] 16:58:00 Test Item Value Reference Range Interpretation Comments UA Turbidity (test code = Clear (11/03/16 10:58 UA Turbidity) AM) [facility] AND [id number] 16:58:00 Test Item Value Reference Range Interpretation Comments UA Spec Grav (test code = UA Spec Grav) 1.027 [facility] AND [id number] 16:58:00 Test Item Value Reference Range Interpretation Comments UA Protein (test code = UA Negative mg/dL Protein) [facility]2017-01-18 16:58:00 Test Item Value Reference Range Interpretation Comments eGFR (test code = eGFR) 100 [facility]2017-01-18 16:58:00 Test Item Value Reference Range Interpretation Comments Bili Total (test code = Bili Total) 0.2 0.2-1.3 [facility]2017-01-18 16:58:00 Test Item Value Reference Range Interpretation Comments CO2 (test code = CO2) 27 24-32 [facility]2017-01-18 16:58:00 Test Item Value Reference Range Interpretation Comments Potassium Lvl (test code = Potassium 4.1 3.5-5.1 Lvl) [facility]2017-01-18 16:58:00 Test Item Value Reference Range Interpretation Comments BUN (test code = BUN) 11 7-22 [facility]2017-01-18 16:58:00 Test Item Value Reference Range Interpretation Comments Chloride Lvl (test code = Chloride Lvl) 98 95-109 [facility]2017-01-18 16:58:00 Test Item Value Reference Range Interpretation Comments Sodium Lvl (test code = Sodium Lvl) 136 135-145 [facility]2017-01-18 16:58:00 Test Item Value Reference Range Interpretation Comments Creatinine Lvl (test code = Creatinine 0.90 0.50-1.40 Lvl) [facility]2017-01-18 16:58:00 Test Item Value Reference Range Interpretation Comments Alk Phos (test code = Alk Phos) 80 39-136 [facility]2017-01-18 16:58:00 Test Item Value Reference Range Interpretation Comments AST (test code = AST) 29 See_Comment [Auto mated message] The system which ge nerated this result transmit anjelica reference range : <=37. The reference range was not used to interpr et this result as randa l/abnormal. [facility]2017-01-18 16:58:00 Test Item Value Reference Range Interpretation Comments Albumin Lvl (test code = Albumin Lvl) 3.6 3.5-5.0 [facility]2017-01-18 16:58:00 Test Item Value Reference Range Interpretation Comments Calcium Lvl (test code = Calcium Lvl) 8.8 8.5-10.5 [facility]2017-01-18 16:58:00 Test Item Value Reference Range Interpretation Comments ALT (test code = ALT) 40 See_Comment [Auto mated message] The system which ge nerated this result transmit anjelica reference range : <=65. The reference range was not used to interpr et this result as randa l/abnormal. [facility]2017-01-18 16:58:00 Test Item Value Reference Range Interpretation Comments Total Protein (test code = Total 7.2 6.4-8.4 Protein) [facility]2017-01-18 16:58:00 Test Item Value Reference Range Interpretation Comments Glucose Lvl (test code = Glucose Lvl) 289 70-99 [facility]2017-01-18 16:58:00 Test Item Value Reference Range Interpretation Comments Globulin (test code = Globulin) 3.6 2.7-4.2 [facility]2017-01-18 16:58:00 Test Item Value Reference Range Interpretation Comments AGAP (test code = AGAP) 15.1 10.0-20.0 [facility]2017-01-18 16:58:00 Test Item Value Reference Range Interpretation Comments A/G Ratio (test code = A/G Ratio) 1.0 0.7-1.6 [facility]2017-01-18 16:58:00 Test Item Value Reference Range Interpretation Comments B/C Ratio (test code = B/C Ratio) 12 6-25 [facility]2017-01-18 16:58:00 Test Item Value Reference Range Interpretation Comments Lipase Lvl (test code = Lipase Lvl) 199 73-393 [facility] HospitalQmswhxkHJRBBTIEDG6411-32-28 16:58:00 Test Item Value Reference Range Interpretation Comments MCHC (test code = MCHC) 33.7 32.0-36.0 [facility] HospitalCbhsbdlPUJEZBXXHA1793-43-44 16:58:00 Test Item Value Reference Range Interpretation Comments RDW (test code = RDW) 14.6 11.5-14.5 [facility] Ho[id number] 16:58:00 Test Item Value Reference Range Interpretation Comments Platelet (test code = Platelet) 186 133-450 [facility] HospitalVraoemxZVENQQTDQR2319-32-02 16:58:00 Test Item Value Reference Range Interpretation Comments MCV (test code = MCV) 82.6 80.0-94.0 [facility] HospitalCavjzmzHUJCVKPSHA2420-67-77 16:58:00 Test Item Value Reference Range Interpretation Comments MPV (test code = MPV) 8.3 7.4-10.4 [facility] HospitalQkgghamIJYDRMNAJX8494-53-11 16:58:00 Test Item Value Reference Range Interpretation Comments MCH (test code = MCH) 27.9 pg 27.0-31.0 [facility] HospitalOwppkwsVMKKOQXDRH1496-43-00 16:58:00 Test Item Value Reference Range Interpretation Comments Hct (test code = Hct) 43.8 42.0-54.0 [facility] Hos[id number] 16:58:00 Test Item Value Reference Range Interpretation Comments Hgb (test code = Hgb) 14.8 14.0-18.0 [facility] HospitalYjmvgevXHIZLQXEDR4287-19-74 16:58:00 Test Item Value Reference Range Interpretation Comments RBC (test code = RBC) 5.31 4.70-6.10 [facility] HospitalRgowljsYNDBUDJKTM9918-40-95 16:58:00 Test Item Value Reference Range Interpretation Comments WBC (test code = WBC) 5.7 3.7-10.4 [facility] HospitalGtkrtouGAJBESALNN9898-91-88 16:58:00 Test Item Value Reference Range Interpretation Comments Eosinophils # (test code 0.4 See_Comment [A utomated message] The = Eosinophils #) system whic h generated this result tra nsmitted reference range : <=0.5. The reference r david was not used to int erpret this result as normal/abnormal . [facility] HospitalZvejfacJLLSCFBXYW5435-24-66 16:58:00 Test Item Value Reference Range Interpretation Comments Basophils # (test code 0.1 See_Comment [Aut omated message] The = Basophils #) system which generated this result tra nsmitted reference range : <=0.2. The reference r david was not used to int erpret this result as normal/abnormal . [facility] HospitalAbrxuvqZHWJLJBGFD0986-09-63 16:58:00 Test Item Value Reference Range Interpretation Comments Segs (test code = Segs) 35.9 45.0-75.0 [facility] HospitalFcfjxwrAFUJGLUFBK3569-82-57 16:58:00 Test Item Value Reference Range Interpretation Comments Lymphocytes (test code = Lymphocytes) 45.3 20.0-40.0 [facility] HospitalSenrtpqLQQBUVHCCD4793-31-20 16:58:00 Test Item Value Reference Range Interpretation Comments Monocytes (test code = Monocytes) 9.5 2.0-12.0 [facility] HospitalAiiuqihLSFSILNWPU1395-35-75 16:58:00 Test Item Value Reference Range Interpretation Comments Eosinophils (test code = 7.9 See_Comment [A utomated message] The Eosinophils) system which ge nerated this result tra nsmitted reference range : <=4.0. The reference r david was not used to int erpret this result as normal/abnormal . [facility] HospitalTydyotyNULWZDILDF8164-91-88 16:58:00 Test Item Value Reference Range Interpretation Comments Basophils (test code = 1.4 See_Comment [Aut omated message] The Basophils) system which ge nerated this result tra nsmitted reference range : <=1.0. The reference r david was not used to int erpret this result as normal/abnormal . [facility] HospitalSlhpdjsJDPKCRUWJJ4288-32-55 16:58:00 Test Item Value Reference Range Interpretation Comments Segs-Bands # (test code = Segs-Bands #) 2.0 1.5-8.1 [facility] HospitalN[id number] 16:58:00 Test Item Value Reference Range Interpretation Comments Monocytes # (test code 0.5 See_Comment [Aut omated message] The = Monocytes #) system which generated this result tra nsmitted reference range : <=0.8. The reference r david was not used to int erpret this result as normal/abnormal . [facility] HospitalAradahzNTMMPFGRQW1339-80-90 16:58:00 Test Item Value Reference Range Interpretation Comments Lymphocytes # (test code = Lymphocytes 2.6 1.0-5.5 #) [facility]2017-01-18 16:58:00 Test Item Value Reference Range Interpretation Comments UA Color (test code = UA Color) Ltyellow [facility]2017-01-18 16:58:00 Test Item Value Reference Range Interpretation Comments UA Urobilinogen (test code = UA <=1.0 mg/dL 0.1-1.0 Urobilinogen) [facility] AND [id number] 16:58:00 Test Item Value Reference Range Interpretation Comments UA Glucose (test code = UA Glucose) 500 mg/dL [facility] AND [id number] 16:58:00 Test Item Value Reference Range Interpretation Comments UA Ketones (test code = UA Trace mg/dL Ketones) [facility] AND [id number] 16:58:00 Test Item Value Reference Range Interpretation Comments UA Bili (test code = Negative *NA*(11/03/16 UA Bili) 10:58 AM) [facility] AND [id number] 16:58:00 Test Item Value Reference Range Interpretation Comments UA Nitrite (test code Negative (11/03/16 10:58 = UA Nitrite) AM) [facility] AND [id number] 16:58:00 Test Item Value Reference Range Interpretation Comments UA Blood (test code = Negative (11/03/16 10:58 UA Blood) AM) [facility] AND [id number] 16:58:00 Test Item Value Reference Range Interpretation Comments UA Leuk Est (test Negative (11/03/16 10:58 code = UA Leuk Est) AM) [facility] AND [id number] 16:58:00 Test Item Value Reference Range Interpretation Comments UA Sq Epi (test code = UA Sq Occasional /LPF Epi) [facility] AND [id number] 16:58:00 Test Item Value Reference Range Interpretation Comments UA pH (test code = UA pH) 5.0 5.0-8.0 [facility] AND [id number] 16:58:00 Test Item Value Reference Range Interpretation Comments UA Turbidity (test code = Clear (11/03/16 10:58 UA Turbidity) AM) [facility] AND [id number] 16:58:00 Test Item Value Reference Range Interpretation Comments UA Spec Grav (test code = UA Spec Grav) 1.027 [facility] AND [id number] 16:58:00 Test Item Value Reference Range Interpretation Comments UA Protein (test code = UA Negative mg/dL Protein) [facility]2016-10-29 15:29:00 Test Item Value Reference Range Interpretation Comments CK MB Index (test 1.3 See_Comment [Automate d message] The code = CK MB Index) system w [employer] generated this result transmit anjelica reference range : <=2.5. The reference range was not used to interpr et this result as randa l/abnormal. [facility]2016-10-29 15:29:00 Test Item Value Reference Range Interpretation Comments CK MB (test code = CK MB) 1.1 0.5-3.6 [facility] [employer]2016-10-29 15:29:00 Test Item Value Reference Range Interpretation Comments Troponin-I (test code no gt See_Comment [Auto mated message] The = Troponin-I) system which g enerated this result transmit anjelica reference range : <=0.40. The reference r david was not used to interpr et this result as randa l/abnormal. [facility] [employer]2016-10-29 15:29:00 Test Item Value Reference Range Interpretation Comments Total CK (test code = Total CK) 86 12-191 [facility] [employer]2016-10-29 15:29:00 Test Item Value Reference Range Interpretation Comments CK MB Index (test 1.3 See_Comment [Automate d message] The code = CK MB Index) system [employer] generated this result transmit anjelica reference range : <=2.5. The reference range was not used to interpr et this result as randa l/abnormal. [facility] [employer]2016-10-29 15:29:00 Test Item Value Reference Range Interpretation Comments CK MB (test code = CK MB) 1.1 0.5-3.6 [facility] [employer]2016-10-29 15:29:00 Test Item Value Reference Range Interpretation Comments Troponin-I (test code no gt See_Comment [Auto mated message] The = Troponin-I) system which g enerated this result transmit anjelica reference range : <=0.40. The reference r david was not used to interpr et this result as randa l/abnormal. [facility] [employer] [id number] 15:29:00 Test Item Value Reference Range Interpretation Comments Total CK (test code = Total CK) 86 12-191 [facility] [employer]2016-10-29 15:29:00 Test Item Value Reference Range Interpretation Comments CK MB Index (test 1.3 See_Comment [Automate d message] The code = CK MB Index) system [employer] generated this result transmit anjelica reference range : <=2.5. The reference range was not used to interpr et this result as randa l/abnormal. [employer]2016-10-29 15:29:00 Test Item Value Reference Range Interpretation Comments CK MB (test code = CK MB) 1.1 0.5-3.6 [facility] [employer]2016-10-29 15:29:00 Test Item Value Reference Range Interpretation Comments Troponin-I (test code no gt See_Comment [Auto mated message] The = Troponin-I) system which g enerated this result transmit anjelica reference range : <=0.40. The reference r david was not used to interpr et this result as randa l/abnormal. [facility] [employer]2016-10-29 15:29:00 Test Item Value Reference Range Interpretation Comments Total CK (test code = Total CK) 86 12-191 [facility] [employer]2016-10-29 15:29:00 Test Item Value Reference Range Interpretation Comments CK MB Index (test 1.3 See_Comment [Automate d message] The code = CK MB Index) system [employer] generated this result transmit anjelica reference range : <=2.5. The reference range was not used to interpr et this result as randa l/abnormal. [employer]2016-10-29 15:29:00 Test Item Value Reference Range Interpretation Comments CK MB (test code = CK MB) 1.1 0.5-3.6 [facility] [employer]2016-10-29 15:29:00 Test Item Value Reference Range Interpretation Comments Troponin-I (test code no gt See_Comment [Auto mated message] The = Troponin-I) system which g enerated this result transmit anjelica reference range : <=0.40. The reference r david was not used to interpr et this result as randa l/abnormal. [employer]2016-10-29 15:29:00 Test Item Value Reference Range Interpretation Comments Total CK (test code = Total CK) 86 12-191 [facility] [employer]2016-10-29 11:09:00 Test Item Value Reference Range Interpretation Comments CK MB Index (test 0.8 See_Comment [Automate d message] The code = CK MB Index) [facility] generated this result transmit anjelica reference range : <=2.5. The reference range was not used to interpr et this result as randa l/abnormal. [facility] [employer]2016-10-29 11:09:00 Test Item Value Reference Range Interpretation Comments CK MB (test code = CK MB) 0.8 0.5-3.6 [facility] [employer]2016-10-29 11:09:00 Test Item Value Reference Range Interpretation Comments Troponin-I (test code no gt See_Comment [Auto mated message] The = Troponin-I) system which g enerated this result transmit anjelica reference range : <=0.40. The reference r david was not used to interpr et this result as randa l/abnormal. [facility] [employer]2016-10-29 11:09:00 Test Item Value Reference Range Interpretation Comments Total CK (test code = Total CK) 95 12-191 [facility] FpksjvyMBXFUDKADKDW5526-82-69 11:09:00 Test Item Value Reference Range Interpretation Comments AGAP (test code = AGAP) 12.9 10.0-20.0 [facility] TqsgtgaLEIDFCUFYLTG7085-44-05 11:09:00 Test Item Value Reference Range Interpretation Comments eGFR (test code = eGFR) 100 [facility]IPWP7078-82-41 11:09:00 Test Item Value Reference Range Interpretation Comments Calcium Lvl (test code = Calcium Lvl) 8.8 8.5-10.5 [facility] XeqybgoOXZATRWJALDS3540-74-52 11:09:00 Test Item Value Reference Range Interpretation Comments CO2 (test code = CO2) 26 24-32 [facility] JadjcgpLGBNCIOKJKUB9295-70-03 11:09:00 Test Item Value Reference Range Interpretation Comments Potassium Lvl (test code = Potassium 3.9 3.5-5.1 Lvl) [facility] WjwdkdvUCIHWTVHVBWF4430-48-55 11:09:00 Test Item Value Reference Range Interpretation Comments Chloride Lvl (test code = Chloride Lvl) 101 95-109 [facility]YijqmpsOYLYLCDRLRTH8970-94-91 11:09:00 Test Item Value Reference Range Interpretation Comments Sodium Lvl (test code = Sodium Lvl) 136 135-145 [facility]mrmfqcCZGMVDLACJTQ3918-31-47 11:09:00 Test Item Value Reference Range Interpretation Comments Creatinine Lvl (test code = Creatinine 0.90 0.50-1.40 Lvl) [facility] HospitalCaprlxdXDCPMAUFXSEV1556-86-96 11:09:00 Test Item Value Reference Range Interpretation Comments BUN (test code = BUN) 25 7-22 [facility]XwlyacqBXJDUHSCWRDC7100-31-19 11:09:00 Test Item Value Reference Range Interpretation Comments Glucose Lvl (test code = Glucose Lvl) 228 70-99 [facility] JNDAKGEVF3423-01-33 11:09:00 Test Item Value Reference Range Interpretation Comments Hgb A1C (test code = Hgb A1C) 9.[address] [facility] CenterNumara Software [facility]WE[facility]LA[facility] [id number] 11:09:00 Test Item Value Reference Range Interpretation Comments CK MB Index (test 0.8 See_Comment [Automate d message] The code = CK MB Index) system w [facility] generated this result transmit anjelica reference range : <=2.5. The reference range was not used to interpr et this result as randa l/abnormal. [facility] QFMCBBQ2121-96-35 11:09:00 Test Item Value Reference Range Interpretation Comments CK MB (test code = CK MB) 0.8 0.5-3.6 [facility] GLKUXKT6405-20-20 11:09:00 Test Item Value Reference Range Interpretation Comments Troponin-I (test code no gt See_Comment [Auto mated message] The = Troponin-I) system which g enerated this result transmit anjelica reference range : <=0.40. The reference r david was not used to interpr et this result as randa l/abnormal. [facility] LGGYYCW5104-12-19 11:09:00 Test Item Value Reference Range Interpretation Comments Total CK (test code = Total CK) 95 12-191 [facility] HospitalCvauugsKRTSTVRGXEMU0674-77-94 11:09:00 Test Item Value Reference Range Interpretation Comments AGAP (test code = AGAP) 12.9 10.0-20.0 [facility] HospitalOgsihhvDKIBDPMMSBBU7783-37-65 11:09:00 Test Item Value Reference Range Interpretation Comments eGFR (test code = eGFR) 100 [facility] HospitalVifwlrtJWHZQIMSHKRA1201-47-62 11:09:00 Test Item Value Reference Range Interpretation Comments Calcium Lvl (test code = Calcium Lvl) 8.8 8.5-10.5 [facility] HospitalScmforlIUSHEXBRYGXH2811-43-48 11:09:00 Test Item Value Reference Range Interpretation Comments CO2 (test code = CO2) 26 24-32 [facility] HospitalRolddgbQUGNQDOKQBLW1800-53-62 11:09:00 Test Item Value Reference Range Interpretation Comments Potassium Lvl (test code = Potassium 3.9 3.5-5.1 Lvl) [facility] HospitalOzyrovpJMDBLTKPJNUJ2428-63-78 11:09:00 Test Item Value Reference Range Interpretation Comments Chloride Lvl (test code = Chloride Lvl) 101 95-109 [facility] HospitalUxidsziQFXURTFVQBJB3227-61-76 11:09:00 Test Item Value Reference Range Interpretation Comments Sodium Lvl (test code = Sodium Lvl) 136 135-145 [facility] HospitalLvpxefsEDKLZGESCZKG3860-26-01 11:09:00 Test Item Value Reference Range Interpretation Comments Creatinine Lvl (test code = Creatinine 0.90 0.50-1.40 Lvl) [facility] HospitalDwikxjrMDMGRCWGHGLR9379-66-96 11:09:00 Test Item Value Reference Range Interpretation Comments BUN (test code = BUN) 25 7-22 [facility] HospitalYagvofvWHPRBJUQYHYK6666-41-66 11:09:00 Test Item Value Reference Range Interpretation Comments Glucose Lvl (test code = Glucose Lvl) 228 70-99 [facility] NUKCESQPT7725-44-31 11:09:00 Test Item Value Reference Range Interpretation Comments Hgb A1C (test code = Hgb A1C) 9.[address] [facility] CenterCARWESTLA[facility] IMMGYVR4126-68-89 11:09:00 Test Item Value Reference Range Interpretation Comments CK MB Index (test 0.8 See_Comment [Automate d message] The code = CK MB Index) system w [facility] generated this result transmit anjelica reference range : <=2.5. The reference range was not used to interpr et this result as randa l/abnormal. [facility] CenterCARDIAC [id number] 11:09:00 Test Item Value Reference Range Interpretation Comments CK MB (test code = CK MB) 0.8 0.5-3.6 [facility] SGRWUNZ6510-02-76 11:09:00 Test Item Value Reference Range Interpretation Comments Troponin-I (test code no gt See_Comment [Auto mated message] The = Troponin-I) system which g enerated this result transmit anjelica reference range : <=0.40. The reference r david was not used to interpr et this result as randa l/abnormal. [facility] CenterNumara Software [facility]WE[facility]LA[facility] [id number] 11:09:00 Test Item Value Reference Range Interpretation Comments Total CK (test code = Total CK) 95 12-191 [facility] HospitalZwagdgpKPRCOHOIKCSO6525-86-70 11:09:00 Test Item Value Reference Range Interpretation Comments AGAP (test code = AGAP) 12.9 10.0-20.0 [facility] HospitalJyrdzcsMLBCJUEASQOD3482-75-39 11:09:00 Test Item Value Reference Range Interpretation Comments eGFR (test code = eGFR) 100 [facility] HospitalGzwjkdiKLGVVNMJOKPL0803-84-36 11:09:00 Test Item Value Reference Range Interpretation Comments Calcium Lvl (test code = Calcium Lvl) 8.8 8.5-10.5 [facility] SoutheastZjqvkzlJWQTIEUVHKVU8637-96-25 11:09:00 Test Item Value Reference Range Interpretation Comments CO2 (test code = CO2) 26 24-32 [facility] HospitalQdyzylxXOZHTVVSAOHF7483-32-44 11:09:00 Test Item Value Reference Range Interpretation Comments Potassium Lvl (test code = Potassium 3.9 3.5-5.1 Lvl) [facility] HospitalRoqwseqSTNNQYFWGUVN5918-75-28 11:09:00 Test Item Value Reference Range Interpretation Comments Chloride Lvl (test code = Chloride Lvl) 101 95-109 [facility] SoutheastDoynssvXSOXGDKRHWJX5588-11-96 11:09:00 Test Item Value Reference Range Interpretation Comments Sodium Lvl (test code = Sodium Lvl) 136 135-145 [facility] SoutheastSahebxtUGLELYTNYPPI0174-92-25 11:09:00 Test Item Value Reference Range Interpretation Comments Creatinine Lvl (test code = Creatinine 0.90 0.50-1.40 Lvl) [facility] HospitalCxpnlhrQCTVGCZBCZIL9656-80-21 11:09:00 Test Item Value Reference Range Interpretation Comments BUN (test code = BUN) 25 7-22 [facility]ennialMrulxiyKEKKAFIWTYNX8026-59-15 11:09:00 Test Item Value Reference Range Interpretation Comments Glucose Lvl (test code = Glucose Lvl) 228 70-99 [facility] ROSYIKYBF9239-35-38 11:09:00 Test Item Value Reference Range Interpretation Comments Hgb A1C (test code = Hgb A1C) 9.2 [facility] [id number] 11:09:00 Test Item Value Reference Range Interpretation Comments CK MB Index (test 0.8 See_Comment [Automate d message] The code = CK MB Index) system w [facility] generated this result transmit anjelica reference range : <=2.5. The reference range was not used to interpr et this result as randa l/abnormal. [facility] FAWDOJF4656-64-64 11:09:00 Test Item Value Reference Range Interpretation Comments CK MB (test code = CK MB) 0.8 0.5-3.6 [facility] KKWXABR4070-72-62 11:09:00 Test Item Value Reference Range Interpretation Comments Troponin-I (test code no gt See_Comment [Auto mated message] The = Troponin-I) system which g enerated this result transmit anjelica reference range : <=0.40. The reference r david was not used to interpr et this result as randa l/abnormal. [facility] NQNHVHH8126-43-49 11:09:00 Test Item Value Reference Range Interpretation Comments Total CK (test code = Total CK) 95 12-191 [facility] SoutheastPykbpwdMNHOIORLQHYD9545-85-48 11:09:00 Test Item Value Reference Range Interpretation Comments AGAP (test code = AGAP) 12.9 10.0-20.0 [facility] SoutheastPegirieTCEXHJVRJQXC9105-54-67 11:09:00 Test Item Value Reference Range Interpretation Comments eGFR (test code = eGFR) 100 [facility] SoutheastAxefgwsJNADYPARWDPY8897-73-43 11:09:00 Test Item Value Reference Range Interpretation Comments Calcium Lvl (test code = Calcium Lvl) 8.8 8.5-10.5 [facility] SoutheastUepbhtwVUBNFMPICTWL9716-81-02 11:09:00 Test Item Value Reference Range Interpretation Comments CO2 (test code = CO2) 26 24-32 [facility] CentennialVsufonaULZONNRACGGE2596-78-83 11:09:00 Test Item Value Reference Range Interpretation Comments Potassium Lvl (test code = Potassium 3.9 3.5-5.1 Lvl) [facility] CentennialZrsapaeOTMXSAOSJWQX3226-17-27 11:09:00 Test Item Value Reference Range Interpretation Comments Chloride Lvl (test code = Chloride Lvl) 101 95-109 [facility] CentennialVgafisdFIGPEHAZOFCP8502-56-65 11:09:00 Test Item Value Reference Range Interpretation Comments Sodium Lvl (test code = Sodium Lvl) 136 135-145 [facility] SoutheastMumrdchBPRSEKPLJFWX2459-20-79 11:09:00 Test Item Value Reference Range Interpretation Comments Creatinine Lvl (test code = Creatinine 0.90 0.50-1.40 Lvl) [facility] SoutheastRggtxyoEEMHBYMYPKPO4986-88-97 11:09:00 Test Item Value Reference Range Interpretation Comments BUN (test code = BUN) 25 7-22 [facility] SoutheastLjtatzdRYIFSLIFBYIH6190-77-28 11:09:00 Test Item Value Reference Range Interpretation Comments Glucose Lvl (test code = Glucose Lvl) 228 70-99 [facility] CNEMDNQQQ1825-20-79 11:09:00 Test Item Value Reference Range Interpretation Comments Hgb A1C (test code = Hgb A1C) 9.[address] [facility] [address] CenterCARD[facility]AC [id number] 20:21:00 Test Item Value Reference Range Interpretation Comments Troponin-I (test code no gt See_Comment [Auto mated message] The = Troponin-I) system which g enerated this result transmit anjelica reference range : <=0.40. The reference r david was not used to interpr et this result as randa l/abnormal. [facility] [employer] [id number] 20:21:00 Test Item Value Reference Range Interpretation Comments eGFR (test code = eGFR) 88 [facility] [employer] [id number] 20:21:00 Test Item Value Reference Range Interpretation Comments Creatinine Lvl (test code = Creatinine 1.00 0.50-1.40 Lvl) [facility] [employer] [id number] 20:21:00 Test Item Value Reference Range Interpretation Comments Sodium Lvl (test code = Sodium Lvl) 136 135-145 [facility] [employer] [id number] 20:21:00 Test Item Value Reference Range Interpretation Comments Chloride Lvl (test code = Chloride Lvl) 99 95-109 [facility]2016-10-28 20:21:00 Test Item Value Reference Range Interpretation Comments Potassium Lvl (test code = Potassium 3.8 3.5-5.1 Lvl) [facility]2016-10-28 20:21:00 Test Item Value Reference Range Interpretation Comments CO2 (test code = CO2) 26 24-32 [facility]2016-10-28 20:21:00 Test Item Value Reference Range Interpretation Comments Total Protein (test code = Total 8.1 6.4-8.4 Protein) [facility]2016-10-28 20:21:00 Test Item Value Reference Range Interpretation Comments Albumin Lvl (test code = Albumin Lvl) 3.7 3.5-5.0 [facility]2016-10-28 20:21:00 Test Item Value Reference Range Interpretation Comments Calcium Lvl (test code = Calcium Lvl) 9.6 8.5-10.5 [facility]2016-10-28 20:21:00 Test Item Value Reference Range Interpretation Comments Glucose Lvl (test code = Glucose Lvl) 276 70-99 [facility]2016-10-28 20:21:00 Test Item Value Reference Range Interpretation Comments BUN (test code = BUN) 15 7-22 [facility]2016-10-28 20:21:00 Test Item Value Reference Range Interpretation Comments AST (test code = AST) 12 See_Comment [Auto mated message] The system which ge nerated this result transmit anjelica reference range : <=37. The reference range was not used to interpr et this result as randa l/abnormal. [facility]2016-10-28 20:21:00 Test Item Value Reference Range Interpretation Comments ALT (test code = ALT) 44 See_Comment [Auto mated message] The system which ge nerated this result transmit anjelica reference range : <=65. The reference range was not used to interpr et this result as randa l/abnormal. [facility]2016-10-28 20:21:00 Test Item Value Reference Range Interpretation Comments Alk Phos (test code = Alk Phos) 74 39-136 [facility]2016-10-28 20:21:00 Test Item Value Reference Range Interpretation Comments Bili Total (test code = Bili Total) 0.3 0.2-1.3 [facility]2016-10-28 20:21:00 Test Item Value Reference Range Interpretation Comments A/G Ratio (test code = A/G Ratio) 0.8 0.7-1.6 [facility]2016-10-28 20:21:00 Test Item Value Reference Range Interpretation Comments B/C Ratio (test code = B/C Ratio) 15 6-25 [facility]2016-10-28 20:21:00 Test Item Value Reference Range Interpretation Comments Globulin (test code = Globulin) 4.4 2.7-4.2 [facility]2016-10-28 20:21:00 Test Item Value Reference Range Interpretation Comments AGAP (test code = AGAP) 14.8 10.0-20.0 [facility]2016-10-28 20:21:00 Test Item Value Reference Range Interpretation Comments Lipase Lvl (test code = Lipase Lvl) 62 73-393 [facility]DocvtkfCTZRSBTPYR5930-23-12 20:21:00 Test Item Value Reference Range Interpretation Comments Hgb (test code = Hgb) 14.7 14.0-18.0 [facility] HospitalTpuimvkDDKUDLQDVU8969-10-36 20:21:00 Test Item Value Reference Range Interpretation Comments MCV (test code = MCV) 84.2 80.0-94.0 [facility] HospitalDpugnpfVZKVTWWXKE1103-84-47 20:21:00 Test Item Value Reference Range Interpretation Comments RBC (test code = RBC) 5.31 4.70-6.10 [facility] HospitalTtjhsklHOOQSTDNZZ4295-31-80 20:21:00 Test Item Value Reference Range Interpretation Comments WBC (test code = WBC) 6.6 3.7-10.4 [facility] HospitalIrtdvixQOITSQAAKB7565-94-94 20:21:00 Test Item Value Reference Range Interpretation Comments Hct (test code = Hct) 44.7 42.0-54.0 [facility] HospitalQkaiqzkGRAWUSEJDU4641-59-11 20:21:00 Test Item Value Reference Range Interpretation Comments RDW (test code = RDW) 13.8 11.5-14.5 [facility] HospitalGfyvttdVLTAOOZLRC3766-62-84 20:21:00 Test Item Value Reference Range Interpretation Comments MCHC (test code = MCHC) 33.0 32.0-36.0 [facility] HospitalVlsojatLSMMQGOXPC4887-88-76 20:21:00 Test Item Value Reference Range Interpretation Comments MCH (test code = MCH) 27.7 pg 27.0-31.0 [facility] HospitalTstbfpwTWETZMGGSB9087-30-29 20:21:00 Test Item Value Reference Range Interpretation Comments Platelet (test code = Platelet) 255 133-450 [facility] HospitalClnubnmDEKSHVNRFA5669-28-00 20:21:00 Test Item Value Reference Range Interpretation Comments MPV (test code = MPV) 7.7 7.4-10.4 [facility] HospitalLhmsagjJMVKRFSVHZ3806-08-78 20:21:00 Test Item Value Reference Range Interpretation Comments Polychrom (test code = Moderate Polychrom) *ABN*(08/13/16 3:21 PM) [facility] HospitalUsfpsufTLLIOWTFSH0636-31-99 20:21:00 Test Item Value Reference Range Interpretation Comments Basophils # (test code 0.0 See_Comment [Aut omated message] The = Basophils #) system which generated this result tra nsmitted reference range : <=0.2. The reference r david was not used to int erpret this result as normal/abnormal . [facility] HospitalFtmudseVBNWWNUOXU8288-42-33 20:21:00 Test Item Value Reference Range Interpretation Comments Eosinophils # (test code 0.0 See_Comment [A utomated message] The = Eosinophils #) system whic h generated this result tra nsmitted reference range : <=0.5. The reference r david was not used to int erpret this result as normal/abnormal . [facility] HospitalPqfnczvQZRZWWUNJG3267-59-64 20:21:00 Test Item Value Reference Range Interpretation Comments Monocytes # (test code 0.5 See_Comment [Aut omated message] The = Monocytes #) system which generated this result tra nsmitted reference range : <=0.8. The reference r david was not used to int erpret this result as normal/abnormal . [facility] HospitalHmcxbkjGMSMKVTHDV5799-87-08 20:21:00 Test Item Value Reference Range Interpretation Comments Lymphocytes # (test code = Lymphocytes 1.0 1.0-5.5 #) [facility] HospitalEiyalmyCUQPGZPENE5251-08-88 20:21:00 Test Item Value Reference Range Interpretation Comments Segs-Bands # (test code = Segs-Bands #) 5.0 1.5-8.1 [facility] HospitalPnejjlqQGGWZGLKOG3755-21-93 20:21:00 Test Item Value Reference Range Interpretation Comments Basophils (test code = 0.0 See_Comment [Aut omated message] The Basophils) system which ge nerated this result tra nsmitted reference range : <=1.0. The reference r david was not used to int erpret this result as normal/abnormal . [facility] HospitalXrdgoohAROYQFYCWU4093-62-69 20:21:00 Test Item Value Reference Range Interpretation Comments Monocytes (test code = Monocytes) 7.8 2.0-12.0 [facility] HospitalXylxjdyWTEVVGKFSW9678-54-34 20:21:00 Test Item Value Reference Range Interpretation Comments Eosinophils (test code = 0.1 See_Comment [A utomated message] The Eosinophils) system which ge nerated this result tra nsmitted reference range : <=4.0. The reference r david was not used to int erpret this result as normal/abnormal . [facility] HospitalDhnultjIKBDIHTTFX9075-19-15 20:21:00 Test Item Value Reference Range Interpretation Comments Plt Morph (test code = Normal (08/13/16 3:21 Plt Morph) PM) [facility] HospitalTiigrorPHPFYDUADB9998-18-36 20:21:00 Test Item Value Reference Range Interpretation Comments Segs (test code = Segs) 76.7 45.0-75.0 [facility] HospitalUotpbcoYTOYBXXRPR1356-00-81 20:21:00 Test Item Value Reference Range Interpretation Comments Lymphocytes (test code = Lymphocytes) 15.4 20.0-40.0 [facility]2016-10-28 20:21:00 Test Item Value Reference Range Interpretation Comments UA Nitrite (test code Negative (08/13/16 3:21 = UA Nitrite) PM) [facility]2016-10-28 20:21:00 Test Item Value Reference Range Interpretation Comments UA RBC (test code = 0-2 /HPF See_Comment [Automa anjelica message] The UA RBC) system which ge nerated this result tra nsmitted reference range : <=2. The reference range was not used to interpr et this result as randa l/abnormal. [facility]2016-10-28 20:21:00 Test Item Value Reference Range Interpretation Comments UA Bacteria (test code = UA Occasional /HPF Bacteria) [facility] [id number] 20:21:00 Test Item Value Reference Range Interpretation Comments UA Mucus (test code = UA Mucus) Few /LPF [facility] [id number] 20:21:00 Test Item Value Reference Range Interpretation Comments UA Leuk Est (test Negative (08/13/16 3:21 code = UA Leuk Est) PM) [facility] [id number] 20:21:00 Test Item Value Reference Range Interpretation Comments UA Sq Epi (test code = UA Sq Epi) Rare /LPF [facility] AND [id number] 20:21:00 Test Item Value Reference Range Interpretation Comments UA WBC (test code = UA WBC) 3-5 /HPF [facility] [id number] 20:21:00 Test Item Value Reference Range Interpretation Comments UA Ketones (test code = UA Ketones) 40 mg/dL [facility] AND [id number] 20:21:00 Test Item Value Reference Range Interpretation Comments UA Bili (test code = Negative *NA*(08/13/16 UA Bili) 3:21 PM) [facility] AND [id number] 20:21:00 Test Item Value Reference Range Interpretation Comments UA Blood (test code = Negative (08/13/16 3:21 UA Blood) PM) [facility] AND [id number] 20:21:00 Test Item Value Reference Range Interpretation Comments UA Urobilinogen (test code = UA 0.2 0.1-1.0 Urobilinogen) [facility] AND [id number] 20:21:00 Test Item Value Reference Range Interpretation Comments UA Protein (test code = Trace *ABN*(08/13/16 UA Protein) 3:21 PM) [facility] AND [id number] 20:21:00 Test Item Value Reference Range Interpretation Comments UA Glucose (test code = UA >=1000 mg/dL Glucose) [facility] AND [id number] 20:21:00 Test Item Value Reference Range Interpretation Comments UA Turbidity (test code = Clear (08/13/16 3:21 UA Turbidity) PM) [facility] [id number] 20:21:00 Test Item Value Reference Range Interpretation Comments UA Color (test code = Yellow *NA*(08/13/16 UA Color) 3:21 PM) [facility] [id number] 20:21:00 Test Item Value Reference Range Interpretation Comments UA pH (test code = UA pH) 7.0 1 5.0-8.0 [facility] [id number] 20:21:00 Test Item Value Reference Range Interpretation Comments UA Spec Grav (test code = UA Spec 1.015 [address]) [facility] [id number] 20:21:00 Test Item Value Reference Range Interpretation Comments Troponin-I (test code no gt See_Comment [Auto mated message] The = Troponin-I) system which g enerated this result transmit anjelica reference range : <=0.40. The reference r david was not used to interpr et this result as randa l/abnormal. [facility] [employer] [id number] 20:21:00 Test Item Value Reference Range Interpretation Comments eGFR (test code = eGFR) [address] [facility] [id number] 20:21:00 Test Item Value Reference Range Interpretation Comments Creatinine Lvl (test code = Creatinine 1.00 0.50-1.40 Lvl) [facility] [id number] 20:21:00 Test Item Value Reference Range Interpretation Comments Sodium Lvl (test code = Sodium Lvl) 136 135-145 [facility] [employer] [id number] 20:21:00 Test Item Value Reference Range Interpretation Comments Chloride Lvl (test code = Chloride Lvl) 99 95-109 [facility] [id number] 20:21:00 Test Item Value Reference Range Interpretation Comments Potassium Lvl (test code = Potassium 3.8 3.5-5.1 Lvl) [facility] [id number] 20:21:00 Test Item Value Reference Range Interpretation Comments CO2 (test code = CO2) - [facility] [id number] 20:21:00 Test Item Value Reference Range Interpretation Comments Total Protein (test code = Total 8.1 6.4-8.4 Protein) [facility] [id number] 20:21:00 Test Item Value Reference Range Interpretation Comments Albumin Lvl (test code = Albumin Lvl) 3.7 3.5-5.0 [facility]2016-10-28 20:21:00 Test Item Value Reference Range Interpretation Comments Calcium Lvl (test code = Calcium Lvl) 9.6 8.5-10.5 [facility]2016-10-28 20:21:00 Test Item Value Reference Range Interpretation Comments Glucose Lvl (test code = Glucose Lvl) 276 70-99 [facility]2016-10-28 20:21:00 Test Item Value Reference Range Interpretation Comments BUN (test code = BUN) 15 7- [facility]2016-10-28 20:21:00 Test Item Value Reference Range Interpretation Comments AST (test code = AST) 12 See_Comment [Auto mated message] The system which ge nerated this result transmit anjelica reference range : <=37. The reference range was not used to interpr et this result as randa l/abnormal. [facility]2016-10-28 20:21:00 Test Item Value Reference Range Interpretation Comments ALT (test code = ALT) 44 See_Comment [Auto mated message] The system which ge nerated this result transmit anjelica reference range : <=65. The reference range was not used to interpr et this result as randa l/abnormal. [facility]2016-10-28 20:21:00 Test Item Value Reference Range Interpretation Comments Alk Phos (test code = Alk Phos) 74 39-136 [facility]2016-10-28 20:21:00 Test Item Value Reference Range Interpretation Comments Bili Total (test code = Bili Total) 0.3 0.2-1.3 [facility]2016-10-28 20:21:00 Test Item Value Reference Range Interpretation Comments A/G Ratio (test code = A/G Ratio) 0.8 0.7-1.6 [facility]2016-10-28 20:21:00 Test Item Value Reference Range Interpretation Comments B/C Ratio (test code = B/C Ratio) 15 6- [facility]2016-10-28 20:21:00 Test Item Value Reference Range Interpretation Comments Globulin (test code = Globulin) 4.4 2.7-4.2 [facility]2016-10-28 20:21:00 Test Item Value Reference Range Interpretation Comments AGAP (test code = AGAP) 14.8 10.0-20.0 [facility] [id number] 20:21:00 Test Item Value Reference Range Interpretation Comments Lipase Lvl (test code = Lipase Lvl) 62 73-393 [facility] HospitalSawpllxLVGREAWPFH1427-05-00 20:21:00 Test Item Value Reference Range Interpretation Comments Hgb (test code = Hgb) 14.7 14.0-18.0 [facility] Hos[id number] 20:21:00 Test Item Value Reference Range Interpretation Comments MCV (test code = MCV) 84.2 80.0-94.0 [facility] HospitalWuqpacxZKQEDAGORO4263-74-52 20:21:00 Test Item Value Reference Range Interpretation Comments RBC (test code = RBC) 5.31 4.70-6.10 [facility] HospitalFbcrsmsCXMENYICOZ5635-76-23 20:21:00 Test Item Value Reference Range Interpretation Comments WBC (test code = WBC) 6.6 3.7-10.4 [facility] HospitalZjxmcqzZSVJPJCJRL2692-66-35 20:21:00 Test Item Value Reference Range Interpretation Comments Hct (test code = Hct) 44.7 42.0-54.0 [facility] HospitalIbykxzcGSOACABKEE7685-53-14 20:21:00 Test Item Value Reference Range Interpretation Comments RDW (test code = RDW) 13.8 11.5-14.5 [facility] HospitalPgqowscVQAEIRQNZR3275-91-00 20:21:00 Test Item Value Reference Range Interpretation Comments MCHC (test code = MCHC) 33.0 32.0-36.0 [facility] Hos[id number] 20:21:00 Test Item Value Reference Range Interpretation Comments MCH (test code = MCH) 27.7 pg 27.0-31.0 [facility] HospitalQhprpizRUFLWNNXQL1327-32-32 20:21:00 Test Item Value Reference Range Interpretation Comments Platelet (test code = Platelet) 255 133-450 [facility] HospitalFwctnbvCLWERTKDPN5465-68-54 20:21:00 Test Item Value Reference Range Interpretation Comments MPV (test code = MPV) 7.7 7.4-10.4 [facility] HospitalWysmricPHGCZNEIEB3098-18-54 20:21:00 Test Item Value Reference Range Interpretation Comments Polychrom (test code = Moderate Polychrom) *ABN*(08/13/16 3:21 PM) [facility] HospitalSpfptlxERFUNKLJXK6771-59-00 20:21:00 Test Item Value Reference Range Interpretation Comments Basophils # (test code 0.0 See_Comment [Aut omated message] The = Basophils #) system which generated this result tra nsmitted reference range : <=0.2. The reference r david was not used to int erpret this result as normal/abnormal . [facility] HospitalMcqwsyrQLUFWGIDOF2203-58-10 20:21:00 Test Item Value Reference Range Interpretation Comments Eosinophils # (test code 0.0 See_Comment [A utomated message] The = Eosinophils #) system whic h generated this result tra nsmitted reference range : <=0.5. The reference r david was not used to int erpret this result as normal/abnormal . [facility] Ho[id number] 20:21:00 Test Item Value Reference Range Interpretation Comments Monocytes # (test code 0.5 See_Comment [Aut omated message] The = Monocytes #) system which generated this result tra nsmitted reference range : <=0.8. The reference r david was not used to int erpret this result as normal/abnormal . [facility] HospitalQwheokcCCLRCWPTNY2094-37-39 20:21:00 Test Item Value Reference Range Interpretation Comments Lymphocytes # (test code = Lymphocytes 1.0 1.0-5.5 #) [facility] Ho[id number] 20:21:00 Test Item Value Reference Range Interpretation Comments Segs-Bands # (test code = Segs-Bands #) 5.0 1.5-8.1 [facility] HospitalSxawxpaCKLLAWIPOS8067-97-29 20:21:00 Test Item Value Reference Range Interpretation Comments Basophils (test code = 0.0 See_Comment [Aut omated message] The Basophils) system which ge nerated this result tra nsmitted reference range : <=1.0. The reference r david was not used to int erpret this result as normal/abnormal . [facility] HospitalVyiswbuKVNOCLQALY1983-80-21 20:21:00 Test Item Value Reference Range Interpretation Comments Monocytes (test code = Monocytes) 7.8 2.0-12.0 [facility] HospitalXgungsxTLZDVJUZDE2555-33-50 20:21:00 Test Item Value Reference Range Interpretation Comments Eosinophils (test code = 0.1 See_Comment [A utomated message] The Eosinophils) system which ge nerated this result tra nsmitted reference range : <=4.0. The reference r david was not used to int erpret this result as normal/abnormal . [facility] HospitalYfchgwkRWYGIORPED0557-00-72 20:21:00 Test Item Value Reference Range Interpretation Comments Plt Morph (test code = Normal (08/13/16 3:21 Plt Morph) PM) [facility] HospitalWvykgkfEJNIYYFSVJ0673-11-94 20:21:00 Test Item Value Reference Range Interpretation Comments Segs (test code = Segs) 76.7 45.0-75.0 [facility] HospitalOgwptkqAEFDWKBLRP1604-15-64 20:21:00 Test Item Value Reference Range Interpretation Comments Lymphocytes (test code = Lymphocytes) 15.4 20.0-40.0 [facility] AND [id number] 20:21:00 Test Item Value Reference Range Interpretation Comments UA Nitrite (test code Negative (08/13/16 3:21 = UA Nitrite) PM) [facility] AND [id number] 20:21:00 Test Item Value Reference Range Interpretation Comments UA RBC (test code = 0-2 /HPF See_Comment [Automa anjelica message] The UA RBC) system which ge nerated this result tra nsmitted reference range : <=2. The reference range was not used to interpr et this result as randa l/abnormal. [facility] AND [id number] 20:21:00 Test Item Value Reference Range Interpretation Comments UA Bacteria (test code = UA Occasional /HPF Bacteria) [facility] AND [id number] 20:21:00 Test Item Value Reference Range Interpretation Comments UA Mucus (test code = UA Mucus) Few /LPF [facility] AND [id number] 20:21:00 Test Item Value Reference Range Interpretation Comments UA Leuk Est (test Negative (08/13/16 3:21 code = UA Leuk Est) PM) [facility] AND [id number] 20:21:00 Test Item Value Reference Range Interpretation Comments UA Sq Epi (test code = UA Sq Epi) Rare /LPF [facility] AND [id number] 20:21:00 Test Item Value Reference Range Interpretation Comments UA WBC (test code = UA WBC) 3-5 /HPF [facility] [id number] 20:21:00 Test Item Value Reference Range Interpretation Comments UA Ketones (test code = UA Ketones) 40 mg/dL [facility] [id number] 20:21:00 Test Item Value Reference Range Interpretation Comments UA Bili (test code = Negative *NA*(08/13/16 UA Bili) 3:21 PM) [facility] [id number] 20:21:00 Test Item Value Reference Range Interpretation Comments UA Blood (test code = Negative (08/13/16 3:21 UA Blood) PM) [facility] [id number] 20:21:00 Test Item Value Reference Range Interpretation Comments UA Urobilinogen (test code = UA 0.2 0.1-1.0 Urobilinogen) [facility] [id number] 20:21:00 Test Item Value Reference Range Interpretation Comments UA Protein (test code = Trace *ABN*(08/13/16 UA Protein) 3:21 PM) [facility] [id number] 20:21:00 Test Item Value Reference Range Interpretation Comments UA Glucose (test code = UA >=1000 mg/dL Glucose) [facility] [id number] 20:21:00 Test Item Value Reference Range Interpretation Comments UA Turbidity (test code = Clear (08/13/16 3:21 UA Turbidity) PM) [facility] [id number] 20:21:00 Test Item Value Reference Range Interpretation Comments UA Color (test code = Yellow *NA*(08/13/16 UA Color) 3:21 PM) [facility] [id number] 20:21:00 Test Item Value Reference Range Interpretation Comments UA pH (test code = UA pH) 7.0 1 5.0-8.0 [facility] [id number] 20:21:00 Test Item Value Reference Range Interpretation Comments UA Spec Grav (test code = UA Spec 1.015 1 Grav) [facility]annCARDIAC [id number] 20:21:00 Test Item Value Reference Range Interpretation Comments Troponin-I (test code no gt See_Comment [Auto mated message] The = Troponin-I) system which g enerated this result transmit anjelica reference range : <=0.40. The reference r david was not used to interpr et this result as randa l/abnormal. [facility]2016-10-28 20:21:00 Test Item Value Reference Range Interpretation Comments eGFR (test code = eGFR) 88 [facility]2016-10-28 20:21:00 Test Item Value Reference Range Interpretation Comments Creatinine Lvl (test code = Creatinine 1.00 0.50-1.40 Lvl) [facility]2016-10-28 20:21:00 Test Item Value Reference Range Interpretation Comments Sodium Lvl (test code = Sodium Lvl) 136 135-145 [facility]2016-10-28 20:21:00 Test Item Value Reference Range Interpretation Comments Chloride Lvl (test code = Chloride Lvl) 99 95-109 [facility]2016-10-28 20:21:00 Test Item Value Reference Range Interpretation Comments Potassium Lvl (test code = Potassium 3.8 3.5-5.1 Lvl) [facility]2016-10-28 20:21:00 Test Item Value Reference Range Interpretation Comments CO2 (test code = CO2) 26 24-32 [facility]2016-10-28 20:21:00 Test Item Value Reference Range Interpretation Comments Total Protein (test code = Total 8.1 6.4-8.4 Protein) [facility]2016-10-28 20:21:00 Test Item Value Reference Range Interpretation Comments Albumin Lvl (test code = Albumin Lvl) 3.7 3.5-5.0 [facility]2016-10-28 20:21:00 Test Item Value Reference Range Interpretation Comments Calcium Lvl (test code = Calcium Lvl) 9.6 8.5-10.5 [facility]2016-10-28 20:21:00 Test Item Value Reference Range Interpretation Comments Glucose Lvl (test code = Glucose Lvl) 276 70-99 [facility]2016-10-28 20:21:00 Test Item Value Reference Range Interpretation Comments BUN (test code = BUN) 15 7-22 [facility]2016-10-28 20:21:00 Test Item Value Reference Range Interpretation Comments AST (test code = AST) 12 See_Comment [Auto mated message] The system which ge nerated this result transmit anjelica reference range : <=37. The reference range was not used to interpr et this result as randa l/abnormal. [facility]2016-10-28 20:21:00 Test Item Value Reference Range Interpretation Comments ALT (test code = ALT) 44 See_Comment [Auto mated message] The system which ge nerated this result transmit anjelica reference range : <=65. The reference range was not used to interpr et this result as randa l/abnormal. [facility]2016-10-28 20:21:00 Test Item Value Reference Range Interpretation Comments Alk Phos (test code = Alk Phos) 74 39-136 [facility]2016-10-28 20:21:00 Test Item Value Reference Range Interpretation Comments Bili Total (test code = Bili Total) 0.3 0.2-1.3 [facility]2016-10-28 20:21:00 Test Item Value Reference Range Interpretation Comments A/G Ratio (test code = A/G Ratio) 0.8 0.7-1.6 [facility]2016-10-28 20:21:00 Test Item Value Reference Range Interpretation Comments B/C Ratio (test code = B/C Ratio) 15 6-25 [facility]2016-10-28 20:21:00 Test Item Value Reference Range Interpretation Comments Globulin (test code = Globulin) 4.4 2.7-4.2 [facility]2016-10-28 20:21:00 Test Item Value Reference Range Interpretation Comments AGAP (test code = AGAP) 14.8 10.0-20.0 [facility]2016-10-28 20:21:00 Test Item Value Reference Range Interpretation Comments Lipase Lvl (test code = Lipase Lvl) 62 73-393 [facility] HospitalSpvvdyaDMLVPFQDPB8226-83-57 20:21:00 Test Item Value Reference Range Interpretation Comments Hgb (test code = Hgb) 14.7 14.0-18.0 [facility] HospitalLoyvwmkOQBYPPBOEH1056-23-04 20:21:00 Test Item Value Reference Range Interpretation Comments MCV (test code = MCV) 84.2 80.0-94.0 [facility] HospitalKngmlgpKPKJMRSHPG3372-77-70 20:21:00 Test Item Value Reference Range Interpretation Comments RBC (test code = RBC) 5.31 4.70-6.10 [facility] HospitalCeowgeaJAGMKUIBPU4603-86-24 20:21:00 Test Item Value Reference Range Interpretation Comments WBC (test code = WBC) 6.6 3.7-10.4 [facility] HospitalJcoppuoGAWNSCPIXT6575-44-65 20:21:00 Test Item Value Reference Range Interpretation Comments Hct (test code = Hct) 44.7 42.0-54.0 [facility] HospitalTkdnsfgLLIBHVMCFX9879-04-27 20:21:00 Test Item Value Reference Range Interpretation Comments RDW (test code = RDW) 13.8 11.5-14.5 [facility] HospitalAxahodjVLOJXIRPZZ5739-64-20 20:21:00 Test Item Value Reference Range Interpretation Comments MCHC (test code = MCHC) 33.0 32.0-36.0 [facility] HospitalPjpmcocRCTSOUKAUI3036-61-69 20:21:00 Test Item Value Reference Range Interpretation Comments MCH (test code = MCH) 27.7 pg 27.0-31.0 [facility] HospitalUpjielrFCOSJCNJVK9407-90-85 20:21:00 Test Item Value Reference Range Interpretation Comments Platelet (test code = Platelet) 255 133-450 [facility] HospitalDrmedhkHCCMFYFGAR8596-36-86 20:21:00 Test Item Value Reference Range Interpretation Comments MPV (test code = MPV) 7.7 7.4-10.4 [facility] HospitalJjhduvzFILLZHERGO7033-81-90 20:21:00 Test Item Value Reference Range Interpretation Comments Polychrom (test code = Moderate Polychrom) *ABN*(08/13/16 3:21 PM) [facility] HospitalSwuxcclRQBGQWEVNJ1316-66-51 20:21:00 Test Item Value Reference Range Interpretation Comments Basophils # (test code 0.0 See_Comment [Aut omated message] The = Basophils #) system which generated this result tra nsmitted reference range : <=0.2. The reference r david was not used to int erpret this result as normal/abnormal . [facility] HospitalQbvnocdGZUPNGZSFS3014-29-74 20:21:00 Test Item Value Reference Range Interpretation Comments Eosinophils # (test code 0.0 See_Comment [A utomated message] The = Eosinophils #) system whic h generated this result tra nsmitted reference range : <=0.5. The reference r david was not used to int erpret this result as normal/abnormal . [facility] HospitalMwwczzrLIEDNRPHPL0921-29-90 20:21:00 Test Item Value Reference Range Interpretation Comments Monocytes # (test code 0.5 See_Comment [Aut omated message] The = Monocytes #) system which generated this result tra nsmitted reference range : <=0.8. The reference r david was not used to int erpret this result as normal/abnormal . [facility] HospitalTjazqqmCVTOHMDTGC0001-89-48 20:21:00 Test Item Value Reference Range Interpretation Comments Lymphocytes # (test code = Lymphocytes 1.0 1.0-5.5 #) [facility] HospitalEkjdhecHNEWTNYFEP3858-00-76 20:21:00 Test Item Value Reference Range Interpretation Comments Segs-Bands # (test code = Segs-Bands #) 5.0 1.5-8.1 [facility] HospitalZumycflIBHTQUELGZ8634-82-55 20:21:00 Test Item Value Reference Range Interpretation Comments Basophils (test code = 0.0 See_Comment [Aut omated message] The Basophils) system which ge nerated this result tra nsmitted reference range : <=1.0. The reference r david was not used to int erpret this result as normal/abnormal . [facility] HospitalKcpbtyzJWATNDGCLG0022-51-46 20:21:00 Test Item Value Reference Range Interpretation Comments Monocytes (test code = Monocytes) 7.8 2.0-12.0 [facility] HospitalRfeacbzBCAMGKGXDA4149-58-45 20:21:00 Test Item Value Reference Range Interpretation Comments Eosinophils (test code = 0.1 See_Comment [A utomated message] The Eosinophils) system which ge nerated this result tra nsmitted reference range : <=4.0. The reference r daivd was not used to int erpret this result as normal/abnormal . [facility] HospitalDodzvlgOBEQUIQBGA9650-21-75 20:21:00 Test Item Value Reference Range Interpretation Comments Plt Morph (test code = Normal (08/13/16 3:21 Plt Morph) PM) [facility] HospitalSoskgwdGIQIHTWRQJ6256-37-62 20:21:00 Test Item Value Reference Range Interpretation Comments Segs (test code = Segs) 76.7 45.0-75.[address] CenterVqubalzXWORHJTNVJ9704-21-23 20:21:00 Test Item Value Reference Range Interpretation Comments Lymphocytes (test code = Lymphocytes) 15.4 20.0-40.0 [facility] AND [id number] 20:21:00 Test Item Value Reference Range Interpretation Comments UA Nitrite (test code Negative (08/13/16 3:21 = UA Nitrite) PM) [facility] AND [id number] 20:21:00 Test Item Value Reference Range Interpretation Comments UA RBC (test code = 0-2 /HPF See_Comment [Automa anjelica message] The UA RBC) system which ge nerated this result tra nsmitted reference range : <=2. The reference range was not used to interpr et this result as randa l/abnormal. [facility] AND [id number] 20:21:00 Test Item Value Reference Range Interpretation Comments UA Bacteria (test code = UA Occasional /HPF Bacteria) [facility] AND [id number] 20:21:00 Test Item Value Reference Range Interpretation Comments UA Mucus (test code = UA Mucus) Few /LPF [facility] AND [id number] 20:21:00 Test Item Value Reference Range Interpretation Comments UA Leuk Est (test Negative (08/13/16 3:21 code = UA Leuk Est) PM) [facility] AND [id number] 20:21:00 Test Item Value Reference Range Interpretation Comments UA Sq Epi (test code = UA Sq Epi) Rare /LPF [facility] AND [id number] 20:21:00 Test Item Value Reference Range Interpretation Comments UA WBC (test code = UA WBC) 3-5 /HPF [facility] AND [id number] 20:21:00 Test Item Value Reference Range Interpretation Comments UA Ketones (test code = UA Ketones) 40 mg/dL [facility] AND [id number] 20:21:00 Test Item Value Reference Range Interpretation Comments UA Bili (test code = Negative *NA*(08/13/16 UA Bili) 3:21 PM) [facility] AND [id number] 20:21:00 Test Item Value Reference Range Interpretation Comments UA Blood (test code = Negative (08/13/16 3:21 UA Blood) PM) [facility] [id number] 20:21:00 Test Item Value Reference Range Interpretation Comments UA Urobilinogen (test code = UA 0.2 0.1-1.0 Urobilinogen) [facility] [id number] 20:21:00 Test Item Value Reference Range Interpretation Comments UA Protein (test code = Trace *ABN*(08/13/16 UA Protein) 3:21 PM) [facility] [id number] 20:21:00 Test Item Value Reference Range Interpretation Comments UA Glucose (test code = UA >=1000 mg/dL Glucose) [facility] [id number] 20:21:00 Test Item Value Reference Range Interpretation Comments UA Turbidity (test code = Clear (08/13/16 3:21 UA Turbidity) PM) [facility] [id number] 20:21:00 Test Item Value Reference Range Interpretation Comments UA Color (test code = Yellow *NA*(08/13/16 UA Color) 3:21 PM) [facility] [id number] 20:21:00 Test Item Value Reference Range Interpretation Comments UA pH (test code = UA pH) 7.0 1 5.0-8.0 [facility] [id number] 20:21:00 Test Item Value Reference Range Interpretation Comments UA Spec Grav (test code = UA Spec 1.015 1 Grav) [facility] [id number] 20:21:00 Test Item Value Reference Range Interpretation Comments Troponin-I (test code no gt See_Comment [Auto mated message] The = Troponin-I) system which g enerated this result transmit anjelica reference range : <=0.40. The reference r david was not used to interpr et this result as randa l/abnormal. [facility] [id number] 20:21:00 Test Item Value Reference Range Interpretation Comments eGFR (test code = eGFR) [address] [facility] [id number] 20:21:00 Test Item Value Reference Range Interpretation Comments Creatinine Lvl (test code = Creatinine 1.00 0.50-1.40 Lvl) [facility] [id number] 20:21:00 Test Item Value Reference Range Interpretation Comments Sodium Lvl (test code = Sodium Lvl) 136 135-145 [facility]2016-10-28 20:21:00 Test Item Value Reference Range Interpretation Comments Chloride Lvl (test code = Chloride Lvl) 99 95-109 [facility]2016-10-28 20:21:00 Test Item Value Reference Range Interpretation Comments Potassium Lvl (test code = Potassium 3.8 3.5-5.1 Lvl) [facility]2016-10-28 20:21:00 Test Item Value Reference Range Interpretation Comments CO2 (test code = CO2) 26 24-32 [facility]2016-10-28 20:21:00 Test Item Value Reference Range Interpretation Comments Total Protein (test code = Total 8.1 6.4-8.4 Protein) [facility]2016-10-28 20:21:00 Test Item Value Reference Range Interpretation Comments Albumin Lvl (test code = Albumin Lvl) 3.7 3.5-5.0 [facility]2016-10-28 20:21:00 Test Item Value Reference Range Interpretation Comments Calcium Lvl (test code = Calcium Lvl) 9.6 8.5-10.5 [facility]2016-10-28 20:21:00 Test Item Value Reference Range Interpretation Comments Glucose Lvl (test code = Glucose Lvl) 276 70-99 [facility]2016-10-28 20:21:00 Test Item Value Reference Range Interpretation Comments BUN (test code = BUN) 15 7-22 [facility]2016-10-28 20:21:00 Test Item Value Reference Range Interpretation Comments AST (test code = AST) 12 See_Comment [Auto mated message] The system which ge nerated this result transmit anjelica reference range : <=37. The reference range was not used to interpr et this result as randa l/abnormal. [facility]2016-10-28 20:21:00 Test Item Value Reference Range Interpretation Comments ALT (test code = ALT) 44 See_Comment [Auto mated message] The system which ge nerated this result transmit anjelica reference range : <=65. The reference range was not used to interpr et this result as randa l/abnormal. [facility]2016-10-28 20:21:00 Test Item Value Reference Range Interpretation Comments Alk Phos (test code = Alk Phos) 74 39-136 [facility]2016-10-28 20:21:00 Test Item Value Reference Range Interpretation Comments Bili Total (test code = Bili Total) 0.3 0.2-1.3 [facility]2016-10-28 20:21:00 Test Item Value Reference Range Interpretation Comments A/G Ratio (test code = A/G Ratio) 0.8 0.7-1.6 [facility]2016-10-28 20:21:00 Test Item Value Reference Range Interpretation Comments B/C Ratio (test code = B/C Ratio) 15 6-25 [facility]2016-10-28 20:21:00 Test Item Value Reference Range Interpretation Comments Globulin (test code = Globulin) 4.4 2.7-4.2 [facility]2016-10-28 20:21:00 Test Item Value Reference Range Interpretation Comments AGAP (test code = AGAP) 14.8 10.0-20.0 [facility]2016-10-28 20:21:00 Test Item Value Reference Range Interpretation Comments Lipase Lvl (test code = Lipase Lvl) 62 73-393 [facility]JpjreqxLFOVUYEIOB1463-12-36 20:21:00 Test Item Value Reference Range Interpretation Comments Hgb (test code = Hgb) 14.7 14.0-18.0 [facility] HospitalYhmpapxNUYRNXEKKV3924-68-34 20:21:00 Test Item Value Reference Range Interpretation Comments MCV (test code = MCV) 84.2 80.0-94.0 [facility] HospitalErxjpeuLTTFDBAXJB5277-98-24 20:21:00 Test Item Value Reference Range Interpretation Comments RBC (test code = RBC) 5.31 4.70-6.10 [facility] HospitalSrqobkvMITXATAFSO1391-86-47 20:21:00 Test Item Value Reference Range Interpretation Comments WBC (test code = WBC) 6.6 3.7-10.4 [facility] HospitalPvigluoNQWLVNTRIF1639-54-13 20:21:00 Test Item Value Reference Range Interpretation Comments Hct (test code = Hct) 44.7 42.0-54.0 [facility] HospitalGtjkgyqXOKCJNWSCE1685-86-02 20:21:00 Test Item Value Reference Range Interpretation Comments RDW (test code = RDW) 13.8 11.5-14.5 [facility] HospitalZludkfsLHXZVNRRLG9609-73-01 20:21:00 Test Item Value Reference Range Interpretation Comments MCHC (test code = MCHC) 33.0 32.0-36.0 [facility] HospitalTqrcgexSQIBVRBUWG0127-29-99 20:21:00 Test Item Value Reference Range Interpretation Comments MCH (test code = MCH) 27.7 pg 27.0-31.0 [facility] HospitalWdklvwnAJJNYVGZQU0794-96-52 20:21:00 Test Item Value Reference Range Interpretation Comments Platelet (test code = Platelet) 255 133-450 [facility] HospitalSxdsyrqJXVBKQZFDM2297-08-05 20:21:00 Test Item Value Reference Range Interpretation Comments MPV (test code = MPV) 7.7 7.4-10.4 [facility] HospitalUbuoelyIYLZTZXDBS9492-94-94 20:21:00 Test Item Value Reference Range Interpretation Comments Polychrom (test code = Moderate Polychrom) *ABN*(08/13/16 3:21 PM) [facility] HospitalTwkhjcmAIGGIPTLWI8614-23-36 20:21:00 Test Item Value Reference Range Interpretation Comments Basophils # (test code 0.0 See_Comment [Aut omated message] The = Basophils #) system which generated this result tra nsmitted reference range : <=0.2. The reference r david was not used to int erpret this result as normal/abnormal . [facility] HospitalNmfdglzYNRWPNOQTE0557-22-57 20:21:00 Test Item Value Reference Range Interpretation Comments Eosinophils # (test code 0.0 See_Comment [A utomated message] The = Eosinophils #) system whic h generated this result tra nsmitted reference range : <=0.5. The reference r david was not used to int erpret this result as normal/abnormal . [facility] HospitalQtycqxwCVYGZRMOZI1791-88-50 20:21:00 Test Item Value Reference Range Interpretation Comments Monocytes # (test code 0.5 See_Comment [Aut omated message] The = Monocytes #) system which generated this result tra nsmitted reference range : <=0.8. The reference r david was not used to int erpret this result as normal/abnormal . [facility] HospitalTaixqudCKSXHOEGNR0966-49-79 20:21:00 Test Item Value Reference Range Interpretation Comments Lymphocytes # (test code = Lymphocytes 1.0 1.0-5.5 #) [facility] HospitalJudrufmKWESKBQBWY3540-89-36 20:21:00 Test Item Value Reference Range Interpretation Comments Segs-Bands # (test code = Segs-Bands #) 5.0 1.5-8.1 [facility] HospitalPiupooaUESJXPWRMM7721-41-81 20:21:00 Test Item Value Reference Range Interpretation Comments Basophils (test code = 0.0 See_Comment [Aut omated message] The Basophils) system which ge nerated this result tra nsmitted reference range : <=1.0. The reference r david was not used to int erpret this result as normal/abnormal . [facility] HospitalBuxsuviYVBMYULNHG3924-74-46 20:21:00 Test Item Value Reference Range Interpretation Comments Monocytes (test code = Monocytes) 7.8 2.0-12.0 [facility] HospitalTkgxrdwEUPXWFEAVS8033-80-27 20:21:00 Test Item Value Reference Range Interpretation Comments Eosinophils (test code = 0.1 See_Comment [A utomated message] The Eosinophils) system which ge nerated this result tra nsmitted reference range : <=4.0. The reference r david was not used to int erpret this result as normal/abnormal . [facility] HospitalZbgekbbCHTUAUTSTK8886-22-46 20:21:00 Test Item Value Reference Range Interpretation Comments Plt Morph (test code = Normal (08/13/16 3:21 Plt Morph) PM) [facility] HospitalRgcilnkQKDBVUARSO5320-32-69 20:21:00 Test Item Value Reference Range Interpretation Comments Segs (test code = Segs) 76.7 45.0-75.0 [facility] HospitalEnhxmlwPWJSORCNHY6422-39-41 20:21:00 Test Item Value Reference Range Interpretation Comments Lymphocytes (test code = Lymphocytes) 15.4 20.0-40.0 [facility]2016-10-28 20:21:00 Test Item Value Reference Range Interpretation Comments UA Nitrite (test code Negative (08/13/16 3:21 = UA Nitrite) PM) [facility]2016-10-28 20:21:00 Test Item Value Reference Range Interpretation Comments UA RBC (test code = 0-2 /HPF See_Comment [Automa anjelica message] The UA RBC) system which ge nerated this result tra nsmitted reference range : <=2. The reference range was not used to interpr et this result as randa l/abnormal. [facility] AND [id number] 20:21:00 Test Item Value Reference Range Interpretation Comments UA Bacteria (test code = UA Occasional /HPF Bacteria) [facility] AND [id number] 20:21:00 Test Item Value Reference Range Interpretation Comments UA Mucus (test code = UA Mucus) Few /LPF [facility] AND [id number] 20:21:00 Test Item Value Reference Range Interpretation Comments UA Leuk Est (test Negative (08/13/16 3:21 code = UA Leuk Est) PM) [facility] AND [id number] 20:21:00 Test Item Value Reference Range Interpretation Comments UA Sq Epi (test code = UA Sq Epi) Rare /LPF [facility] AND [id number] 20:21:00 Test Item Value Reference Range Interpretation Comments UA WBC (test code = UA WBC) 3-5 /HPF [facility] AND [id number] 20:21:00 Test Item Value Reference Range Interpretation Comments UA Ketones (test code = UA Ketones) 40 mg/dL [facility] AND [id number] 20:21:00 Test Item Value Reference Range Interpretation Comments UA Bili (test code = Negative *NA*(08/13/16 UA Bili) 3:21 PM) [facility] AND [id number] 20:21:00 Test Item Value Reference Range Interpretation Comments UA Blood (test code = Negative (08/13/16 3:21 UA Blood) PM) [facility] AND [id number] 20:21:00 Test Item Value Reference Range Interpretation Comments UA Urobilinogen (test code = UA 0.2 0.1-1.0 Urobilinogen) [facility] AND [id number] 20:21:00 Test Item Value Reference Range Interpretation Comments UA Protein (test code = Trace *ABN*(08/13/16 UA Protein) 3:21 PM) [facility] AND [id number] 20:21:00 Test Item Value Reference Range Interpretation Comments UA Glucose (test code = UA >=1000 mg/dL Glucose) [facility] AND [id number] 20:21:00 Test Item Value Reference Range Interpretation Comments UA Turbidity (test code = Clear (08/13/16 3:21 UA Turbidity) PM) [facility] AND [id number] 20:21:00 Test Item Value Reference Range Interpretation Comments UA Color (test code = Yellow *NA*(08/13/16 UA Color) 3:21 PM) [facility] AND [id number] 20:21:00 Test Item Value Reference Range Interpretation Comments UA pH (test code = UA pH) 7.0 1 5.0-8.0 [facility] AND [id number] 20:21:00 Test Item Value Reference Range Interpretation Comments UA Spec Grav (test code = UA Spec 1.015 1 Grav) [facility]acrhrkGKAZOEYWHKVJ0404[facility] 23:31:00 Test Item Value Reference Range Interpretation Comments Chloride Lvl (test code = Chloride Lvl) 100 95-109 [facility] HospitalMrizuvzWLGXROVIHHJZ0277-51-09 23:31:00 Test Item Value Reference Range Interpretation Comments Calcium Lvl (test code = Calcium Lvl) 8.8 8.5-10.5 [facility] HospitalCgbdzmbVEMCNVRPAGLM2234-00-90 23:31:00 Test Item Value Reference Range Interpretation Comments Sodium Lvl (test code = Sodium Lvl) 135 135-145 [facility] HospitalLbgvtreMUOKPSCJKYGM3874-04-88 23:31:00 Test Item Value Reference Range Interpretation Comments Potassium Lvl (test code = Potassium 3.8 3.5-5.1 Lvl) [facility] HospitalLebjhsoKBDYFQCRLXHH9620-99-65 23:31:00 Test Item Value Reference Range Interpretation Comments AST (test code = AST) 21 See_Comment [Auto mated message] The system which ge nerated this result transmit anjelica reference range : <=37. The reference range was not used to interpr et this result as randa l/abnormal. [facility] HospitalYqnlntlWUVBOWVFGXUT5851-76-63 23:31:00 Test Item Value Reference Range Interpretation Comments Albumin Lvl (test code = Albumin Lvl) 3.9 3.5-5.0 [facility] HospitalRnfoxvcPGOTOFVPDWAI8277-23-15 23:31:00 Test Item Value Reference Range Interpretation Comments Total Protein (test code = Total 7.5 6.4-8.4 Protein) [facility] HospitalFtfogcoZBSFKEJJXWJM8011-30-53 23:31:00 Test Item Value Reference Range Interpretation Comments ALT (test code = ALT) 67 See_Comment [Auto mated message] The system which ge nerated this result transmit anjelica reference range : <=65. The reference range was not used to interpr et this result as randa l/abnormal. [facility] HospitalUkmlppyQMPFTFTOWXYU1922-20-81 23:31:00 Test Item Value Reference Range Interpretation Comments Alk Phos (test code = Alk Phos) 124 39-136 [facility] HospitalRhgahkfOOCVHCJKXLJY6731-98-51 23:31:00 Test Item Value Reference Range Interpretation Comments Bili Total (test code = Bili Total) 0.3 0.2-1.3 [facility] HospitalDrjzdvuLEDFFVJGEZVN2615-56-56 23:31:00 Test Item Value Reference Range Interpretation Comments eGFR (test code = eGFR) 110 [facility] HospitalElinvosGPOVUSKYCAJT7238-41-46 23:31:00 Test Item Value Reference Range Interpretation Comments Creatinine Lvl (test code = Creatinine 0.72 0.50-1.40 Lvl) [facility] HospitalCwrhdbpGVCYVGANTHQO9193-69-06 23:31:00 Test Item Value Reference Range Interpretation Comments BUN (test code = BUN) 15 7-22 [facility] HospitalYrnqrlwLUXWBTWEHZZB1895-96-63 23:31:00 Test Item Value Reference Range Interpretation Comments CO2 (test code = CO2) 29 24-32 [facility] HospitalLbdrmlcHNLKZSPZEYGD5579-84-64 23:31:00 Test Item Value Reference Range Interpretation Comments Glucose Lvl (test code = Glucose Lvl) 266 70-99 [facility] HospitalLurwppnEVPSHLMCWLCB3269-31-66 23:31:00 Test Item Value Reference Range Interpretation Comments Globulin (test code = Globulin) 3.6 2.0-4.0 [facility] HospitalIfngeiiGZZFOZYCHUKK6602-29-67 23:31:00 Test Item Value Reference Range Interpretation Comments AGAP (test code = AGAP) 9.8 10.0-20.0 [facility] HospitalXknfxsvPTLETKQJEIEH3791-64-04 23:31:00 Test Item Value Reference Range Interpretation Comments A/G Ratio (test code = A/G Ratio) 1.1 0.7-1.6 [facility] HospitalKvhmtmmOOZHAXHFRVPS6752-63-24 23:31:00 Test Item Value Reference Range Interpretation Comments B/C Ratio (test code = B/C Ratio) 21 6-25 [facility] HospitalKlmtupdTFJGAEAJDP8387-29-16 23:31:00 Test Item Value Reference Range Interpretation Comments MPV (test code = MPV) 8.5 7.4-10.4 [facility] HospitalFcdozmoESWPXEVSTA4511-99-18 23:31:00 Test Item Value Reference Range Interpretation Comments RDW (test code = RDW) 13.9 11.5-14.5 [facility] HospitalNuvhtrwLCKVKUPJMK0180-89-71 23:31:00 Test Item Value Reference Range Interpretation Comments Platelet (test code = Platelet) 214 133-450 [facility] HospitalOlgxrunEXWZHFGMPZ5434-61-92 23:31:00 Test Item Value Reference Range Interpretation Comments Hct (test code = Hct) 41.6 42.0-54.0 [facility] HospitalFjabhluIUKNGMBYXV8597-51-68 23:31:00 Test Item Value Reference Range Interpretation Comments Hgb (test code = Hgb) 13.6 14.0-18.0 [facility] HospitalBosqhdeJCBCBACEZS2803-73-30 23:31:00 Test Item Value Reference Range Interpretation Comments MCH (test code = MCH) 27.8 pg 27.0-31.0 [facility] HospitalYkddgfkEBCLZRLXYD1941-87-77 23:31:00 Test Item Value Reference Range Interpretation Comments MCV (test code = MCV) 85.2 80.0-94.0 [facility] HospitalXpvcdzeRZFLEUFXKR0182-51-94 23:31:00 Test Item Value Reference Range Interpretation Comments MCHC (test code = MCHC) 32.6 32.0-36.0 [facility] HospitalQhvjmczZCIJQRGUNF6025-21-66 23:31:00 Test Item Value Reference Range Interpretation Comments WBC (test code = WBC) 6.9 3.7-10.4 [facility] HospitalJmdrhjwPYTWYQDLWX9219-05-27 23:31:00 Test Item Value Reference Range Interpretation Comments RBC (test code = RBC) 4.89 4.70-6.10 [facility] HospitalChqydyiBERXBZIJZO7317-40-44 23:31:00 Test Item Value Reference Range Interpretation Comments Monocytes (test code = Monocytes) 6.7 2.0-12.0 [facility] HospitalUhdefosLKTWIFDSAQ8610-73-79 23:31:00 Test Item Value Reference Range Interpretation Comments Basophils (test code = 0.4 See_Comment [Aut omated message] The Basophils) system which ge nerated this result tra nsmitted reference range : <=1.0. The reference r david was not used to int erpret this result as normal/abnormal . [facility] HospitalNktkxokRHSEQKLVSP8839-12-28 23:31:00 Test Item Value Reference Range Interpretation Comments Eosinophils (test code = 4.8 See_Comment [A utomated message] The Eosinophils) system which ge nerated this result tra nsmitted reference range : <=4.0. The reference r david was not used to int erpret this result as normal/abnormal . [facility] HospitalFchxpflVQJHQXTACM0120-63-61 23:31:00 Test Item Value Reference Range Interpretation Comments Segs-Bands # (test code = Segs-Bands #) 3.3 1.5-8.1 [place] [id number] 23:31:00 Test Item Value Reference Range Interpretation Comments Segs (test code = Segs) 48.2 45.0-75.0 [place] [id number] 23:31:00 Test Item Value Reference Range Interpretation Comments Lymphocytes (test code = Lymphocytes) 39.9 20.0-40.0 [place] [id number] 23:31:00 Test Item Value Reference Range Interpretation Comments Lymphocytes # (test code = Lymphocytes 2.7 1.0-5.5 #) [facility] HospitalRxiimfqKEVBCYHKNE5771-48-13 23:31:00 Test Item Value Reference Range Interpretation Comments Monocytes # (test code 0.5 See_Comment [Aut omated message] The = Monocytes #) system which generated this result tra nsmitted reference range : <=0.8. The reference r david was not used to int erpret this result as normal/abnormal . [facility] HospitalTqnzmivXCGSEQWFEI6014-38-95 23:31:00 Test Item Value Reference Range Interpretation Comments Basophils # (test code 0.0 See_Comment [Aut omated message] The = Basophils #) system which generated this result tra nsmitted reference range : <=0.2. The reference r david was not used to int erpret this result as normal/abnormal . [facility] HospitalTqshfykSLLNAICQSZ0786-30-48 23:31:00 Test Item Value Reference Range Interpretation Comments Eosinophils # (test code 0.3 See_Comment [A utomated message] The = Eosinophils #) system whic h generated this result tra nsmitted reference range : <=0.5. The reference r david was not used to int erpret this result as normal/abnormal . [facility] AND [id number] 23:31:00 Test Item Value Reference Range Interpretation Comments UA WBC (test code = UA WBC) 0-2 /HPF [facility] AND [id number] 23:31:00 Test Item Value Reference Range Interpretation Comments UA RBC (test code = 0-2 /HPF See_Comment [Automa anjelica message] The UA RBC) system which ge nerated this result tra nsmitted reference range : <=2. The reference range was not used to interpr et this result as randa l/abnormal. [facility] AND [id number] 23:31:00 Test Item Value Reference Range Interpretation Comments UA Bacteria (test code = UA Occasional /HPF Bacteria) [facility] AND [id number] 23:31:00 Test Item Value Reference Range Interpretation Comments UA Amorph Sera (test code = Occasional /HPF UA Amorph Sera) [facility] AND [id number] 23:31:00 Test Item Value Reference Range Interpretation Comments UA Sq Epi (test code = UA Sq Occasional /LPF Epi) [facility] AND [id number] 23:31:00 Test Item Value Reference Range Interpretation Comments UA Blood (test code = Negative (01/27/16 6:31 UA Blood) PM) [facility] AND [id number] 23:31:00 Test Item Value Reference Range Interpretation Comments UA Urobilinogen (test code = UA 0.2 0.1-1.0 Urobilinogen) [facility] AND [id number] 23:31:00 Test Item Value Reference Range Interpretation Comments UA Nitrite (test code Negative (01/27/16 6:31 = UA Nitrite) PM) [facility] AND [id number] 23:31:00 Test Item Value Reference Range Interpretation Comments UA Leuk Est (test Negative (01/27/16 6:31 code = UA Leuk Est) PM) [facility] AND [id number] 23:31:00 Test Item Value Reference Range Interpretation Comments UA pH (test code = UA pH) 5.5 1 5.0-8.0 [facility] AND [id number] 23:31:00 Test Item Value Reference Range Interpretation Comments UA Protein (test code = UA Negative mg/dL Protein) [facility] AND [id number] 23:31:00 Test Item Value Reference Range Interpretation Comments UA Glucose (test code = UA >=1000 mg/dL Glucose) [facility] AND [id number] 23:31:00 Test Item Value Reference Range Interpretation Comments UA Ketones (test code = UA Negative mg/dL Ketones) [facility] AND [id number] 23:31:00 Test Item Value Reference Range Interpretation Comments UA Bili (test code = Negative *NA*(01/27/16 UA Bili) 6:31 PM) [facility] AND [id number] 23:31:00 Test Item Value Reference Range Interpretation Comments UA Spec Grav (test code = UA Spec 1.025 1 Grav) [facility] AND [id number] 23:31:00 Test Item Value Reference Range Interpretation Comments UA Color (test code = Yellow *NA*(01/27/16 UA Color) 6:31 PM) [facility] AND [id number] 23:31:00 Test Item Value Reference Range Interpretation Comments UA Turbidity (test code = Clear (01/27/16 6:31 UA Turbidity) PM) [facility] [facility]wfwjMYSVQHJTEUON8678-85-68 23:31:00 Test Item Value Reference Range Interpretation Comments Chloride Lvl (test code = Chloride Lvl) 100 95-109 [facility]SharmefMFMSXDFYHXQW8703-26-18 23:31:00 Test Item Value Reference Range Interpretation Comments Calcium Lvl (test code = Calcium Lvl) 8.8 8.5-10.5 [facility] HospitalWdvxeegYEIOGAJMPNAW2729-53-98 23:31:00 Test Item Value Reference Range Interpretation Comments Sodium Lvl (test code = Sodium Lvl) 135 135-145 [facility] HospitalFyhnwrnECZWUSDIHTHK4378-71-58 23:31:00 Test Item Value Reference Range Interpretation Comments Potassium Lvl (test code = Potassium 3.8 3.5-5.1 Lvl) [facility] HospitalIadsmgaUTEBSHRPHQRZ4945-26-69 23:31:00 Test Item Value Reference Range Interpretation Comments AST (test code = AST) 21 See_Comment [Auto mated message] The system which ge nerated this result transmit anjelica reference range : <=37. The reference range was not used to interpr et this result as randa l/abnormal. [facility] HospitalMjnowkvDTFTUXRKJNEK0208-99-27 23:31:00 Test Item Value Reference Range Interpretation Comments Albumin Lvl (test code = Albumin Lvl) 3.9 3.5-5.0 [facility] HospitalQfhvypnBXYERISFYSEC7898-51-43 23:31:00 Test Item Value Reference Range Interpretation Comments Total Protein (test code = Total 7.5 6.4-8.4 Protein) [facility] HospitalShaxnumFJEBVDIAGPVV3195-16-49 23:31:00 Test Item Value Reference Range Interpretation Comments ALT (test code = ALT) 67 See_Comment [Auto mated message] The system which ge nerated this result transmit anjelica reference range : <=65. The reference range was not used to interpr et this result as randa l/abnormal. [facility] HospitalHhwjwmoWKJEVNPEGPKK2565-37-84 23:31:00 Test Item Value Reference Range Interpretation Comments Alk Phos (test code = Alk Phos) 124 39-136 [facility] HospitalElbisrpGMKVFPUYRBMU2832-81-30 23:31:00 Test Item Value Reference Range Interpretation Comments Bili Total (test code = Bili Total) 0.3 0.2-1.3 [facility] HospitalSdoejzaVVVGXEHXSICP5494-67-35 23:31:00 Test Item Value Reference Range Interpretation Comments eGFR (test code = eGFR) 110 [facility] HospitalUmiusyfYRUZBGXEZMUA5038-15-00 23:31:00 Test Item Value Reference Range Interpretation Comments Creatinine Lvl (test code = Creatinine 0.72 0.50-1.40 Lvl) [facility] HospitalJfwsuyiYNTUUWJAKLSW3872-24-47 23:31:00 Test Item Value Reference Range Interpretation Comments BUN (test code = BUN) 15 7-22 [facility] HospitalLemihheUUGAXDVRHPUL3591-25-43 23:31:00 Test Item Value Reference Range Interpretation Comments CO2 (test code = CO2) 29 24-32 [facility] HospitalWoqffzgGISNMMVUWHPA6029-94-21 23:31:00 Test Item Value Reference Range Interpretation Comments Glucose Lvl (test code = Glucose Lvl) 266 70-99 [facility] HospitalQvjoslcGWMGSSCFQQPI9877-30-08 23:31:00 Test Item Value Reference Range Interpretation Comments Globulin (test code = Globulin) 3.6 2.0-4.0 [facility] HospitalArdxzlaTOECYVRDGPQY4603-40-38 23:31:00 Test Item Value Reference Range Interpretation Comments AGAP (test code = AGAP) 9.8 10.0-20.0 [facility] HospitalEbotuybZJZRYLHKLQAM6184-13-10 23:31:00 Test Item Value Reference Range Interpretation Comments A/G Ratio (test code = A/G Ratio) 1.1 0.7-1.6 [facility] HospitalLtzajluXARDMEGCZIMW5879-60-73 23:31:00 Test Item Value Reference Range Interpretation Comments B/C Ratio (test code = B/C Ratio) 21 6-25 [facility] HospitalTywbmisJVKVKZAFDD0968-61-75 23:31:00 Test Item Value Reference Range Interpretation Comments MPV (test code = MPV) 8.5 7.4-10.4 [facility] HospitalVkkzutsOEOHHOCTEQ6474-30-66 23:31:00 Test Item Value Reference Range Interpretation Comments RDW (test code = RDW) 13.9 11.5-14.5 [facility] HospitalTnpbyptJDZIIXBRYQ8469-27-98 23:31:00 Test Item Value Reference Range Interpretation Comments Platelet (test code = Platelet) 214 133-450 [facility] HospitalZgdkmadKJRJAPVULI9359-52-11 23:31:00 Test Item Value Reference Range Interpretation Comments Hct (test code = Hct) 41.6 42.0-54.0 [facility] HospitalOhagmqiHUFDYTFQZU9482-43-32 23:31:00 Test Item Value Reference Range Interpretation Comments Hgb (test code = Hgb) 13.6 14.0-18.0 [facility] HospitalUyntkhiYITEFQNDCT8952-48-42 23:31:00 Test Item Value Reference Range Interpretation Comments MCH (test code = MCH) 27.8 pg 27.0-31.0 [facility] HospitalZsvnrnjRSSDIYTEZF0792-18-25 23:31:00 Test Item Value Reference Range Interpretation Comments MCV (test code = MCV) 85.2 80.0-94.0 [facility] HospitalHvmvaauHQYADHHMNG4137-51-01 23:31:00 Test Item Value Reference Range Interpretation Comments MCHC (test code = MCHC) 32.6 32.0-36.0 [facility] HospitalDsekszzYHARQTLCRD3986-97-98 23:31:00 Test Item Value Reference Range Interpretation Comments WBC (test code = WBC) 6.9 3.7-10.4 [facility] HospitalEajxrufZBLRQITUSV7860-38-16 23:31:00 Test Item Value Reference Range Interpretation Comments RBC (test code = RBC) 4.89 4.70-6.10 [facility] HospitalXiexggsIHIYBCKRGU8325-74-68 23:31:00 Test Item Value Reference Range Interpretation Comments Monocytes (test code = Monocytes) 6.7 2.0-12.0 [facility] HospitalYfqabihTMSZPSRTNY4379-40-63 23:31:00 Test Item Value Reference Range Interpretation Comments Basophils (test code = 0.4 See_Comment [Aut omated message] The Basophils) system which ge nerated this result tra nsmitted reference range : <=1.0. The reference r david was not used to int erpret this result as normal/abnormal . [facility] HospitalRfwheasACYUHKKCJK9112-60-72 23:31:00 Test Item Value Reference Range Interpretation Comments Eosinophils (test code = 4.8 See_Comment [A utomated message] The Eosinophils) system which ge nerated this result tra nsmitted reference range : <=4.0. The reference r david was not used to int erpret this result as normal/abnormal . [facility] HospitalBrymlmeGDSXGDDPLP6957-66-80 23:31:00 Test Item Value Reference Range Interpretation Comments Segs-Bands # (test code = Segs-Bands #) 3.3 1.5-8.1 [facility] HospitalTphxszcPSFGCMYSBH5294-13-39 23:31:00 Test Item Value Reference Range Interpretation Comments Segs (test code = Segs) 48.2 45.0-75.0 [facility] HospitalTblpusrWZCSAIZQNU2267-48-41 23:31:00 Test Item Value Reference Range Interpretation Comments Lymphocytes (test code = Lymphocytes) 39.9 20.0-40.0 [facility] HospitalUwlrzpnQCYSBOUJLK8956-08-95 23:31:00 Test Item Value Reference Range Interpretation Comments Lymphocytes # (test code = Lymphocytes 2.7 1.0-5.5 #) [facility] HospitalXnfohguOEJNAKVMZM1257-00-34 23:31:00 Test Item Value Reference Range Interpretation Comments Monocytes # (test code 0.5 See_Comment [Aut omated message] The = Monocytes #) system which generated this result tra nsmitted reference range : <=0.8. The reference r david was not used to int erpret this result as normal/abnormal . [facility] HospitalJyfsuarZUSLMOEYFY8453-78-79 23:31:00 Test Item Value Reference Range Interpretation Comments Basophils # (test code 0.0 See_Comment [Aut omated message] The = Basophils #) system which generated this result tra nsmitted reference range : <=0.2. The reference r david was not used to int erpret this result as normal/abnormal . [facility] HospitalFefbierFJXBICVMYP0500-29-65 23:31:00 Test Item Value Reference Range Interpretation Comments Eosinophils # (test code 0.3 See_Comment [A utomated message] The = Eosinophils #) system whic h generated this result tra nsmitted reference range : <=0.5. The reference r david was not used to int erpret this result as normal/abnormal . [facility] AND [id number] 23:31:00 Test Item Value Reference Range Interpretation Comments UA WBC (test code = UA WBC) 0-2 /HPF [facility] AND [id number] 23:31:00 Test Item Value Reference Range Interpretation Comments UA RBC (test code = 0-2 /HPF See_Comment [Automa anjelica message] The UA RBC) system which ge nerated this result tra nsmitted reference range : <=2. The reference range was not used to interpr et this result as randa l/abnormal. [facility] AND [id number] 23:31:00 Test Item Value Reference Range Interpretation Comments UA Bacteria (test code = UA Occasional /HPF Bacteria) [facility] AND [id number] 23:31:00 Test Item Value Reference Range Interpretation Comments UA Amorph Sera (test code = Occasional /HPF UA Amorph Sera) [facility] AND [id number] 23:31:00 Test Item Value Reference Range Interpretation Comments UA Sq Epi (test code = UA Sq Occasional /LPF Epi) [facility] AND [id number] 23:31:00 Test Item Value Reference Range Interpretation Comments UA Blood (test code = Negative (01/27/16 6:31 UA Blood) PM) [facility] AND [id number] 23:31:00 Test Item Value Reference Range Interpretation Comments UA Urobilinogen (test code = UA 0.2 0.1-1.0 Urobilinogen) [facility] AND [id number] 23:31:00 Test Item Value Reference Range Interpretation Comments UA Nitrite (test code Negative (01/27/16 6:31 = UA Nitrite) PM) [facility] AND [id number] 23:31:00 Test Item Value Reference Range Interpretation Comments UA Leuk Est (test Negative (01/27/16 6:31 code = UA Leuk Est) PM) [facility] AND [id number] 23:31:00 Test Item Value Reference Range Interpretation Comments UA pH (test code = UA pH) 5.5 1 5.0-8.0 [facility] AND [id number] 23:31:00 Test Item Value Reference Range Interpretation Comments UA Protein (test code = UA Negative mg/dL Protein) [facility] AND [id number] 23:31:00 Test Item Value Reference Range Interpretation Comments UA Glucose (test code = UA >=1000 mg/dL Glucose) [facility] AND [id number] 23:31:00 Test Item Value Reference Range Interpretation Comments UA Ketones (test code = UA Negative mg/dL Ketones) [facility] AND [id number] 23:31:00 Test Item Value Reference Range Interpretation Comments UA Bili (test code = Negative *NA*(01/27/16 UA Bili) 6:31 PM) [facility] AND [id number] 23:31:00 Test Item Value Reference Range Interpretation Comments UA Spec Grav (test code = UA Spec 1.025 1 Grav) [facility] AND [id number] 23:31:00 Test Item Value Reference Range Interpretation Comments UA Color (test code = Yellow *NA*(01/27/16 UA Color) 6:31 PM) [facility] AND [id number] 23:31:00 Test Item Value Reference Range Interpretation Comments UA Turbidity (test code = Clear (01/27/16 6:31 UA Turbidity) PM) [facility] HospitalTbnqonpJMWNGIAFIIHB6479-60-84 23:31:00 Test Item Value Reference Range Interpretation Comments Chloride Lvl (test code = Chloride Lvl) 100 95-109 [facility] HospitalMkxelxiDDHIGSEJCGYB6027-89-15 23:31:00 Test Item Value Reference Range Interpretation Comments Calcium Lvl (test code = Calcium Lvl) 8.8 8.5-10.5 [facility] HospitalBeuexytIKPRBFVXOXSH0114-27-84 23:31:00 Test Item Value Reference Range Interpretation Comments Sodium Lvl (test code = Sodium Lvl) 135 135-145 [facility] HospitalQahvrqvEYWTIDGBFCQT9709-42-49 23:31:00 Test Item Value Reference Range Interpretation Comments Potassium Lvl (test code = Potassium 3.8 3.5-5.1 Lvl) [facility] HospitalGwrnorfMBFVSPYFUBAK9668-86-58 23:31:00 Test Item Value Reference Range Interpretation Comments AST (test code = AST) 21 See_Comment [Auto mated message] The system which ge nerated this result transmit anjelica reference range : <=37. The reference range was not used to interpr et this result as randa l/abnormal. [facility] HospitalMnpsbicMZWIHRCYLWGJ9758-30-80 23:31:00 Test Item Value Reference Range Interpretation Comments Albumin Lvl (test code = Albumin Lvl) 3.9 3.5-5.0 [facility] HospitalAdwlqrxWVTFDLEXYNUN4510-18-14 23:31:00 Test Item Value Reference Range Interpretation Comments Total Protein (test code = Total 7.5 6.4-8.4 Protein) [facility] HospitalOmbyqgbMMBQUOYZGYFE9084-27-07 23:31:00 Test Item Value Reference Range Interpretation Comments ALT (test code = ALT) 67 See_Comment [Auto mated message] The system which ge nerated this result transmit anjelica reference range : <=65. The reference range was not used to interpr et this result as randa l/abnormal. [facility] HospitalEfwhjslWRWNWYWIHHIW4151-07-75 23:31:00 Test Item Value Reference Range Interpretation Comments Alk Phos (test code = Alk Phos) 124 39-136 [facility] HospitalEqsdnvtDSEMQBJIBUZQ7147-54-39 23:31:00 Test Item Value Reference Range Interpretation Comments Bili Total (test code = Bili Total) 0.3 0.2-1.3 [facility] HospitalOdkdenrSMXOZLXPPWQL8627-39-44 23:31:00 Test Item Value Reference Range Interpretation Comments eGFR (test code = eGFR) 110 [facility] HospitalKubrzdlNUQGGSXTJTGA8273-19-85 23:31:00 Test Item Value Reference Range Interpretation Comments Creatinine Lvl (test code = Creatinine 0.72 0.50-1.40 Lvl) [facility] HospitalXzgxrzlUPVVBJILMPGK1880-87-05 23:31:00 Test Item Value Reference Range Interpretation Comments BUN (test code = BUN) 15 7-22 [facility] HospitalKwdimlsGMXYLGXBGRDW7524-75-93 23:31:00 Test Item Value Reference Range Interpretation Comments CO2 (test code = CO2) 29 24-32 [facility] HospitalSmguiwhJUQOTUDOKUUG4004-73-54 23:31:00 Test Item Value Reference Range Interpretation Comments Glucose Lvl (test code = Glucose Lvl) 266 70-99 [facility] HospitalGwgnoseUNSIOWNFTHYV2334-70-15 23:31:00 Test Item Value Reference Range Interpretation Comments Globulin (test code = Globulin) 3.6 2.0-4.0 [facility] HospitalPhpkbgxBQWFTRSYLYBP9856-32-69 23:31:00 Test Item Value Reference Range Interpretation Comments AGAP (test code = AGAP) 9.8 10.0-20.0 [facility] HospitalRyupgkfTRZZCDLUNMSG0226-40-29 23:31:00 Test Item Value Reference Range Interpretation Comments A/G Ratio (test code = A/G Ratio) 1.1 0.7-1.6 [facility] HospitalBtqaxjsFNDDDDTAQVRY1953-47-33 23:31:00 Test Item Value Reference Range Interpretation Comments B/C Ratio (test code = B/C Ratio) 21 6-25 [facility] HospitalVwkfrzrEGJVVUYPMY9386-85-73 23:31:00 Test Item Value Reference Range Interpretation Comments MPV (test code = MPV) 8.5 7.4-10.4 [facility] HospitalZuwzsodMLGYXQQXQT9059-17-45 23:31:00 Test Item Value Reference Range Interpretation Comments RDW (test code = RDW) 13.9 11.5-14.5 [facility] HospitalRrutztlIMPEKOPJLF1979-67-37 23:31:00 Test Item Value Reference Range Interpretation Comments Platelet (test code = Platelet) 214 133-450 [facility] HospitalZieaihyFVLALMRAXE1757-22-83 23:31:00 Test Item Value Reference Range Interpretation Comments Hct (test code = Hct) 41.6 42.0-54.0 [facility] HospitalOitqtvzNWAMBOIPLW1207-42-66 23:31:00 Test Item Value Reference Range Interpretation Comments Hgb (test code = Hgb) 13.6 14.0-18.0 [facility] HospitalDstkoslDECRYWLVWQ1228-64-23 23:31:00 Test Item Value Reference Range Interpretation Comments MCH (test code = MCH) 27.8 pg 27.0-31.0 [facility] HospitalLjoairpQUQBZMNNGO1171-51-19 23:31:00 Test Item Value Reference Range Interpretation Comments MCV (test code = MCV) 85.2 80.0-94.0 [facility] HospitalCuqbcidPKTKILEDSS5851-08-54 23:31:00 Test Item Value Reference Range Interpretation Comments MCHC (test code = MCHC) 32.6 32.0-36.0 [facility] HospitalNnauvfiPPLADIJEJU2362-70-14 23:31:00 Test Item Value Reference Range Interpretation Comments WBC (test code = WBC) 6.9 3.7-10.4 [facility] HospitalIfarhvbYKZEQVZEVL7796-39-82 23:31:00 Test Item Value Reference Range Interpretation Comments RBC (test code = RBC) 4.89 4.70-6.10 [facility] HospitalBgwfrpcBGQJRBAEVG3479-50-01 23:31:00 Test Item Value Reference Range Interpretation Comments Monocytes (test code = Monocytes) 6.7 2.0-12.0 [facility] HospitalLwqjldtFWFJFCDYPY8221-42-12 23:31:00 Test Item Value Reference Range Interpretation Comments Basophils (test code = 0.4 See_Comment [Aut omated message] The Basophils) system which ge nerated this result tra nsmitted reference range : <=1.0. The reference r david was not used to int erpret this result as normal/abnormal . [facility] HospitalOpvzvfaKPOMHZCBTW0850-50-63 23:31:00 Test Item Value Reference Range Interpretation Comments Eosinophils (test code = 4.8 See_Comment [A utomated message] The Eosinophils) system which ge nerated this result tra nsmitted reference range : <=4.0. The reference r david was not used to int erpret this result as normal/abnormal . [facility] HospitalHldyovjNHIJIYRKMN6697-27-25 23:31:00 Test Item Value Reference Range Interpretation Comments Segs-Bands # (test code = Segs-Bands #) 3.3 1.5-8.1 [facility] HospitalQybkipbMXSAEYZLPC9858-58-15 23:31:00 Test Item Value Reference Range Interpretation Comments Segs (test code = Segs) 48.2 45.0-75.0 [facility] HospitalRotpewhMEAQXJPGEO1246-66-33 23:31:00 Test Item Value Reference Range Interpretation Comments Lymphocytes (test code = Lymphocytes) 39.9 20.0-40.0 [facility] HospitalZtjfilyEBVTKRVEGY8571-77-62 23:31:00 Test Item Value Reference Range Interpretation Comments Lymphocytes # (test code = Lymphocytes 2.7 1.0-5.5 #) [facility] HospitalEimrwfbZSKUFXKTCX6806-93-89 23:31:00 Test Item Value Reference Range Interpretation Comments Monocytes # (test code 0.5 See_Comment [Aut omated message] The = Monocytes #) system which generated this result tra nsmitted reference range : <=0.8. The reference r david was not used to int erpret this result as normal/abnormal . [facility] HospitalKpyjpbpQDFOEBLKAY9638-63-54 23:31:00 Test Item Value Reference Range Interpretation Comments Basophils # (test code 0.0 See_Comment [Aut omated message] The = Basophils #) system which generated this result tra nsmitted reference range : <=0.2. The reference r david was not used to int erpret this result as normal/abnormal . [facility] HospitalWclyiukCIDMUNHGZS5145-99-76 23:31:00 Test Item Value Reference Range Interpretation Comments Eosinophils # (test code 0.3 See_Comment [A utomated message] The = Eosinophils #) system whic h generated this result tra nsmitted reference range : <=0.5. The reference r david was not used to int erpret this result as normal/abnormal . [facility]2016-04-12 23:31:00 Test Item Value Reference Range Interpretation Comments UA WBC (test code = UA WBC) 0-2 /HPF [facility]2016-04-12 23:31:00 Test Item Value Reference Range Interpretation Comments UA RBC (test code = 0-2 /HPF See_Comment [Automa anjelica message] The UA RBC) system which ge nerated this result tra nsmitted reference range : <=2. The reference range was not used to interpr et this result as randa l/abnormal. [facility]2016-04-12 23:31:00 Test Item Value Reference Range Interpretation Comments UA Bacteria (test code = UA Occasional /HPF Bacteria) [facility] AND [id number] 23:31:00 Test Item Value Reference Range Interpretation Comments UA Amorph Sera (test code = Occasional /HPF UA Amorph Sera) [facility] AND [id number] 23:31:00 Test Item Value Reference Range Interpretation Comments UA Sq Epi (test code = UA Sq Occasional /LPF Epi) [facility] AND [id number] 23:31:00 Test Item Value Reference Range Interpretation Comments UA Blood (test code = Negative (01/27/16 6:31 UA Blood) PM) [facility] AND [id number] 23:31:00 Test Item Value Reference Range Interpretation Comments UA Urobilinogen (test code = UA 0.2 0.1-1.0 Urobilinogen) [facility] AND [id number] 23:31:00 Test Item Value Reference Range Interpretation Comments UA Nitrite (test code Negative (01/27/16 6:31 = UA Nitrite) PM) [facility] AND [id number] 23:31:00 Test Item Value Reference Range Interpretation Comments UA Leuk Est (test Negative (01/27/16 6:31 code = UA Leuk Est) PM) [facility] AND [id number] 23:31:00 Test Item Value Reference Range Interpretation Comments UA pH (test code = UA pH) 5.5 1 5.0-8.0 [facility] AND [id number] 23:31:00 Test Item Value Reference Range Interpretation Comments UA Protein (test code = UA Negative mg/dL Protein) [facility] AND [id number] 23:31:00 Test Item Value Reference Range Interpretation Comments UA Glucose (test code = UA >=1000 mg/dL Glucose) [facility] AND [id number] 23:31:00 Test Item Value Reference Range Interpretation Comments UA Ketones (test code = UA Negative mg/dL Ketones) [facility] AND [id number] 23:31:00 Test Item Value Reference Range Interpretation Comments UA Bili (test code = Negative *NA*(01/27/16 UA Bili) 6:31 PM) [facility] AND [id number] 23:31:00 Test Item Value Reference Range Interpretation Comments UA Spec Grav (test code = UA Spec 1.025 1 Grav) [facility] AND [id number] 23:31:00 Test Item Value Reference Range Interpretation Comments UA Color (test code = Yellow *NA*(01/27/16 UA Color) 6:31 PM) [facility] Moisés WHATLEY DRJXY0912-30-73 23:31:00 Test Item Value Reference Range Interpretation Comments UA Turbidity (test code = Clear (01/27/16 6:31 UA Turbidity) PM) [facility] XhestbbVHTRIIRKGOJY5537-94-49 23:31:00 Test Item Value Reference Range Interpretation Comments Chloride Lvl (test code = Chloride Lvl) 100 95-109 [facility]kfnuwyYXFMFKKRBWIZ1059-01-00 23:31:00 Test Item Value Reference Range Interpretation Comments Calcium Lvl (test code = Calcium Lvl) 8.8 8.5-10.5 [facility]XfzmwofCEYJXFLZOCQA0062-15-36 23:31:00 Test Item Value Reference Range Interpretation Comments Sodium Lvl (test code = Sodium Lvl) 135 135-145 [facility] HospitalEnpiwwuAQSWUVNBZVSY2003-01-79 23:31:00 Test Item Value Reference Range Interpretation Comments Potassium Lvl (test code = Potassium 3.8 3.5-5.1 Lvl) [facility] HospitalNqjqwciXPULIVZYYVGZ7764-04-23 23:31:00 Test Item Value Reference Range Interpretation Comments AST (test code = AST) 21 See_Comment [Auto mated message] The system which ge nerated this result transmit anjelica reference range : <=37. The reference range was not used to interpr et this result as randa l/abnormal. [facility] NcrtbmaIIIICRTRCAFD8713-41-26 23:31:00 Test Item Value Reference Range Interpretation Comments Albumin Lvl (test code = Albumin Lvl) 3.9 3.5-5.0 [facility] DdyjlbhGOCSPUDRPHRK1888-83-27 23:31:00 Test Item Value Reference Range Interpretation Comments Total Protein (test code = Total 7.5 6.4-8.4 Protein) [facility] HospitalFmviohsAYBLHMNGVRSR1754-63-07 23:31:00 Test Item Value Reference Range Interpretation Comments ALT (test code = ALT) 67 See_Comment [Auto mated message] The system which ge nerated this result transmit anjelica reference range : <=65. The reference range was not used to interpr et this result as randa l/abnormal. [facility] HospitalDqzpkutWVOFWCKFHGCA8029-31-20 23:31:00 Test Item Value Reference Range Interpretation Comments Alk Phos (test code = Alk Phos) 124 39-136 [facility]LlgegroOBVEXBZMHSAD1509-94-48 23:31:00 Test Item Value Reference Range Interpretation Comments Bili Total (test code = Bili Total) 0.3 0.2-1.3 [facility]KzxndwzFZZVTPVQMQVH0019-73-36 23:31:00 Test Item Value Reference Range Interpretation Comments eGFR (test code = eGFR) 110 [facility] HospitalCmmaujvVXOKKUCHVUGU1372-71-66 23:31:00 Test Item Value Reference Range Interpretation Comments Creatinine Lvl (test code = Creatinine 0.72 0.50-1.40 Lvl) [facility]VpyqoegZIFGEKYBVYPF4729-80-15 23:31:00 Test Item Value Reference Range Interpretation Comments BUN (test code = BUN) 15 7-22 [facility] HospitalKamnzpdVFDXQPSZYNXC4239-72-61 23:31:00 Test Item Value Reference Range Interpretation Comments CO2 (test code = CO2) 29 24-32 [facility]bfqwyfJGPBBUJFYZFJ8936-84-05 23:31:00 Test Item Value Reference Range Interpretation Comments Glucose Lvl (test code = Glucose Lvl) 266 70-99 [facility]JkochasRZJPENRVLWHA5936-36-94 23:31:00 Test Item Value Reference Range Interpretation Comments Globulin (test code = Globulin) 3.6 2.0-4.0 [facility]KzleygtQWUQJNLZALAK8127-86-05 23:31:00 Test Item Value Reference Range Interpretation Comments AGAP (test code = AGAP) 9.8 10.0-20.0 [facility]BqgjfebJOQJZNPVNAKZ5552-05-69 23:31:00 Test Item Value Reference Range Interpretation Comments A/G Ratio (test code = A/G Ratio) 1.1 0.7-1.6 [facility]IlegfzgVJYCNEICIDUI1641-55-95 23:31:00 Test Item Value Reference Range Interpretation Comments B/C Ratio (test code = B/C Ratio) 21 6-25 [facility]FdilminNTROIRIOKE4964-76-03 23:31:00 Test Item Value Reference Range Interpretation Comments MPV (test code = MPV) 8.5 7.4-10.4 [facility] HospitalDlqoirsBXYFOVOFAW0796-06-75 23:31:00 Test Item Value Reference Range Interpretation Comments RDW (test code = RDW) 13.9 11.5-14.5 [facility] HospitalBeawmueUBWYNDXZKZ4291-25-87 23:31:00 Test Item Value Reference Range Interpretation Comments Platelet (test code = Platelet) 214 133-450 [facility] HospitalQiawgtoGBWMUEBQVQ5791-73-58 23:31:00 Test Item Value Reference Range Interpretation Comments Hct (test code = Hct) 41.6 42.0-54.0 [facility] HospitalWyumsslKOJTAMGHAE5663-04-93 23:31:00 Test Item Value Reference Range Interpretation Comments Hgb (test code = Hgb) 13.6 14.0-18.0 [facility] HospitalVzpaejyJQEZGTGOXY5113-31-21 23:31:00 Test Item Value Reference Range Interpretation Comments MCH (test code = MCH) 27.8 pg 27.0-31.0 [facility] HospitalGepxjruOTMNUEXCCO4335-52-28 23:31:00 Test Item Value Reference Range Interpretation Comments MCV (test code = MCV) 85.2 80.0-94.0 [facility] HospitalLqeuvldQGKDPKCITT0130-01-95 23:31:00 Test Item Value Reference Range Interpretation Comments MCHC (test code = MCHC) 32.6 32.0-36.0 [facility] HospitalJfktsttNHAVKFUSKR2440-14-74 23:31:00 Test Item Value Reference Range Interpretation Comments WBC (test code = WBC) 6.9 3.7-10.4 [facility] HospitalTtmhzyoKUDBZPKUIZ8595-61-51 23:31:00 Test Item Value Reference Range Interpretation Comments RBC (test code = RBC) 4.89 4.70-6.10 [facility] HospitalYarnnuaOTUUJYGLET2271-75-48 23:31:00 Test Item Value Reference Range Interpretation Comments Monocytes (test code = Monocytes) 6.7 2.0-12.0 [facility] HospitalDfmtlbuEGEESKBFQG8043-81-41 23:31:00 Test Item Value Reference Range Interpretation Comments Basophils (test code = 0.4 See_Comment [Aut omated message] The Basophils) system which ge nerated this result tra nsmitted reference range : <=1.0. The reference r david was not used to int erpret this result as normal/abnormal . [place] [id number] 23:31:00 Test Item Value Reference Range Interpretation Comments Eosinophils (test code = 4.8 See_Comment [A utomated message] The Eosinophils) system which ge nerated this result tra nsmitted reference range : <=4.0. The reference r david was not used to int erpret this result as normal/abnormal . [facility] HospitalPpnhekkTJJHEGPNWT6720-42-21 23:31:00 Test Item Value Reference Range Interpretation Comments Segs-Bands # (test code = Segs-Bands #) 3.3 1.5-8.1 [facility] HospitalInvpptqXIQRBERHJW9464-91-51 23:31:00 Test Item Value Reference Range Interpretation Comments Segs (test code = Segs) 48.2 45.0-75.0 [facility] HospitalKloublnJCBYYFCVCT6055-91-85 23:31:00 Test Item Value Reference Range Interpretation Comments Lymphocytes (test code = Lymphocytes) 39.9 20.0-40.0 [facility] HospitalKgebrvmENSIFLJKUT1051-92-41 23:31:00 Test Item Value Reference Range Interpretation Comments Lymphocytes # (test code = Lymphocytes 2.7 1.0-5.5 #) [facility] HospitalNiewfdaAPPWRLYWNE2896-09-66 23:31:00 Test Item Value Reference Range Interpretation Comments Monocytes # (test code 0.5 See_Comment [Aut omated message] The = Monocytes #) system which generated this result tra nsmitted reference range : <=0.8. The reference r david was not used to int erpret this result as normal/abnormal . [facility] HospitalEouoznzIFUUBZREAZ0885-39-85 23:31:00 Test Item Value Reference Range Interpretation Comments Basophils # (test code 0.0 See_Comment [Aut omated message] The = Basophils #) system which generated this result tra nsmitted reference range : <=0.2. The reference r david was not used to int erpret this result as normal/abnormal . [facility] HospitalUodxdgrTWXTFBWAYK9230-67-84 23:31:00 Test Item Value Reference Range Interpretation Comments Eosinophils # (test code 0.3 See_Comment [A utomated message] The = Eosinophils #) system whic h generated this result tra nsmitted reference range : <=0.5. The reference r david was not used to int erpret this result as normal/abnormal . [facility]2016-04-12 23:31:00 Test Item Value Reference Range Interpretation Comments UA WBC (test code = UA WBC) 0-2 /HPF [facility]2016-04-12 23:31:00 Test Item Value Reference Range Interpretation Comments UA RBC (test code = 0-2 /HPF See_Comment [Automa anjelica message] The UA RBC) system which ge nerated this result tra nsmitted reference range : <=2. The reference range was not used to interpr et this result as randa l/abnormal. [facility] AND [id number] 23:31:00 Test Item Value Reference Range Interpretation Comments UA Bacteria (test code = UA Occasional /HPF Bacteria) [facility] AND [id number] 23:31:00 Test Item Value Reference Range Interpretation Comments UA Amorph Sera (test code = Occasional /HPF UA Amorph Sera) [facility] AND [id number] 23:31:00 Test Item Value Reference Range Interpretation Comments UA Sq Epi (test code = UA Sq Occasional /LPF Epi) [facility] AND [id number] 23:31:00 Test Item Value Reference Range Interpretation Comments UA Blood (test code = Negative (01/27/16 6:31 UA Blood) PM) [facility] AND [id number] 23:31:00 Test Item Value Reference Range Interpretation Comments UA Urobilinogen (test code = UA 0.2 0.1-1.0 Urobilinogen) [facility] AND [id number] 23:31:00 Test Item Value Reference Range Interpretation Comments UA Nitrite (test code Negative (01/27/16 6:31 = UA Nitrite) PM) [facility] AND [id number] 23:31:00 Test Item Value Reference Range Interpretation Comments UA Leuk Est (test Negative (01/27/16 6:31 code = UA Leuk Est) PM) [facility] AND [id number] 23:31:00 Test Item Value Reference Range Interpretation Comments UA pH (test code = UA pH) 5.5 1 5.0-8.0 [facility] AND [id number] 23:31:00 Test Item Value Reference Range Interpretation Comments UA Protein (test code = UA Negative mg/dL Protein) [facility] AND [id number] 23:31:00 Test Item Value Reference Range Interpretation Comments UA Glucose (test code = UA >=1000 mg/dL Glucose) [facility] AND [id number] 23:31:00 Test Item Value Reference Range Interpretation Comments UA Ketones (test code = UA Negative mg/dL Ketones) [facility] [id number] 23:31:00 Test Item Value Reference Range Interpretation Comments UA Bili (test code = Negative *NA*(01/27/16 UA Bili) 6:31 PM) [facility] [id number] 23:31:00 Test Item Value Reference Range Interpretation Comments UA Spec Grav (test code = UA Spec 1.025 1 Grav) [facility] [id number] 23:31:00 Test Item Value Reference Range Interpretation Comments UA Color (test code = Yellow *NA*(01/27/16 UA Color) 6:31 PM) [facility] [id number] 23:31:00 Test Item Value Reference Range Interpretation Comments UA Turbidity (test code = Clear (01/27/16 6:31 UA Turbidity) PM) [facility] SINGLE (NOT PORTABLE) [place] [address] PatientName: LADARIUS MARTIN MR #: [id number] : 1965 Age/Sex: 51/M Req #: [id number] Adm Physician: Ordered by: STEVE DOLAN MD Report #: [id number] Location: ER Room/Bed: Procedure: [id number] DX/CHEST SINGLE (NOT PORTABLE) Exam Date: 09/30/17 Exam Time: 2104 [facility] 8:51 PM Technique: CHEST SINGLE (NOT PORTABLE) Comparison: None available. Clinical history: Shortness of breath, cough Findings: Limited by portable technique and soft tissue attenuation. Given this, grossly unremarkable appearance of the heart, mediastinum, lungs and pleural spaces.. Impression: 1. Lines/Tubes: None 2. No definite acute abnormality. Signed by: Dr Dane Royal MD on 09/30/2017 9:36 PM Dictated By: DANE ROYAL MD 35 Transcribed By: TONY on 09/30/172135 COPY TO: TOOTIE DOLAN MD
[2022-12-17 16:57] LABS: Albumin 4.4 g/dL (3.4-5.0); Bilirubin Total 0.7 mg/dL (0.2-1.0); Potassium 3.9 mmol/L (3.5-5.1); Protein, Total 8.3 g/dL (6.4-8.2)
[2022-12-17] MEDS ORDERED: MORPHINE 4 MG/ML SYR ONE ×2 (16:58→20:16)
[2022-12-17] MEDS ORDERED: ONDANSETRON 4 MG/2 ML VIAL ONE ×2 (16:59→20:16)
[2022-12-17] MEDS ORDERED: NA CHLORIDE 0.9% 1,000 ML ONE (16:59)
[2022-12-17 17:48] LABS: Urine Blood Trace-intact (Negative); Urine Glucose Trace (Negative); Urine Protein 3+ (Negative); Urine Specific Gravity 1.015 (1.005-1.030); Urine pH 5.5 (5.0-7.0)
--- NOTE | 2022-12-17 18:05 | RAD REPORT ---
EXAM DESCRIPTION: CT - Abdomen Pelvis W Contrast - 12/17/2022 5:24 pm CLINICAL HISTORY: Abdominal pain COMPARISON: 2019 TECHNIQUE: Computed axial tomography of the abdomen pelvis was obtained. 95 cc Isovue-300 was admini stered intravenously. Oral contrast was not requested which limits evaluation of bowel and appendix All CT scans are performed using dose optimization technique as appropriate and may include automated exposure control or mA/KV adjustment according to patient size. FINDINGS: The liver, spleen, pancreas, adrenal and right kidney appear unremarkable. Tiny left renal calculus. No hydronephrosis. Diverticula stem from the colon without evidence of diverticulitis. Normal appendix. Small right inguinal hernia contains fat. Postsurgical changes left hip. Fracture fragments have not completely fused yet. Pain pump in place Small to moderate complex fluid ventral hernia contains fat at the level of kidneys. A loop of small bowel extends to the abdominal wall defect. IMPRESSION: Small to moderate ventral hernia Tiny nonobstructing left renal calculus
[2022-12-17 18:08] LABS: Urine Bacteria None Seen /HPF (<20); Urine Mucus Slight /HPF (None Seen); Urine RBC <5 /HPF (None Seen)
[2022-12-17 19:35] LABS: Barbiturates NEGATIVE (NEGATIVE); Benzodiazepines NEGATIVE (NEGATIVE); Cocaine NEGATIVE (NEGATIVE); METHAMPHETAM NEGATIVE (NEGATIVE); Methadone NEGATIVE (NEGATIVE); Opiates POSITIVE (NEGATIVE); Phencyclidine NEGATIVE (NEGATIVE); THC Cannibis NEGATIVE (NEGATIVE)
[2022-12-17] MEDS ORDERED: DICYCLOMINE HCL 20 MG/2 ML AMP IM ONE (19:37)
[2022-12-17] MEDS ORDERED: PROMETHAZINE INJ 25 MG/ML AMP ONE (19:37)
[2022-12-17] MEDS ORDERED: PHENOBARBITAL 32.4 MG TABLET PO ONE (19:37)
[2022-12-17] MEDS ORDERED: ZIPRASIDONE MESYLA 20 MG/VIAL IM ONE (20:16)
[2022-12-17] MEDS ORDERED: WATER FOR INJ,STERILE 10 ML ONE (20:16)
[2022-12-17 20:42] LABS: SARS-CoV-2 Antigen Rapid Res Negative (Negative)
--- NOTE | 2022-12-17 21:20 | EDPHYS ---
Physician Documentation [facility] Name: Lexa Bower Age: 57 yrs Sex: Male : 1965 Arrival Date: 12/17/2022 Time: 16:19 Bed 5 Private MD: ED Physician Joe Garcia HPI: 12/17 16:30 This 57 yrs old Male presents to ER via EMS with complaints of Abd Pain > 50 y/o. ms3 16:30 57-year-old male with past medical history of COPD, hyperlipidemia, GERD, ms3 insulin-dependent diabetes mellitus, seizures, hypertension, heart failure presents via [facility] for abdominal pain that began last night. Patient states the abdominal pain is located in the epigastrium. Patient states pain is a 10/10. Patient denies alleviating or inciting factors. Patient endorses nausea and vomiting.. Historical: - Allergies: 16:24 NKDA; aa5 - Home Meds: 16:24 atorvastatin 20 mg oral tab once daily [Active]; furosemide 40 mg oral tab take 2 tabs aa5 in the morning, 1 tab midday, and 1 tab in the evening [Active]; spironolactone 25 mg Oral tab once daily [Active]; metoprolol succinate 25 mg oral Tb24 1/2 tab in the morning and 1/2 tab every evening. [Active]; - PMHx: 16:24 COPD; Depression; Diabetes - IDDM; GERD; High Cholesterol; Hypertension; Migraines; aa5 Seizures; - PSHx: 16:24 Pain pump (without any medication x 5 yrs); aa5 - Immunization history:: Adult Immunizations up to date. - Social history:: Smoking status: Patient denies any tobacco usage or history of. ROS: 16:30 Constitutional: Negative for fever, and chills. Neck: Negative for injury, pain, and ms3 swelling, Cardiovascular: Negative for chest pain, and palpitations. Respiratory: Negative for shortness of breath, cough, wheezing, and pleuritic chest pain. 16:30 MS/Extremity: Negative for injury and deformity, Skin: Negative for injury, rash, and discoloration. 16:30 Abdomen/GI: Positive for abdominal pain, nausea, vomiting. 16:30 All other systems are negative. Exam: 16:30 Constitutional: This is a well developed, well nourished patient who is awake, alert, ms3 and in no acute distress. Head/Face: Normocephalic, atraumatic. Chest/axilla: Normal chest wall appearance and motion. Nontender with no deformity. Cardiovascular: Regular rate and rhythm with a normal S1 and S2. No gallops, murmurs, or rubs. Normal PMI, no JVD. No pulse deficits. Respiratory: Lungs have equal breath sounds bilaterally, clear to auscultation and percussion. No rales, rhonchi or wheezes noted. No increased work of breathing, no retractions or nasal flaring. 16:30 Abdomen/GI: Inspection: obese scar(s), are noted in the midline, Bowel sounds: normal, in all quadrants, Palpation: moderate abdominal tenderness, Hernia: noted in the paraumbilical area, incarceration, is not appreciated, tenderness, is not appreciated. 16:37 ECG was reviewed by the Attending Physician. ms3 Vital Signs: 16:22 BP 164 / 116; Pulse 102; Resp 20 S; Temp 97.7(O); Pulse Ox 95% on R/A; Pain 10/10; aa5 16:37 BP 168 / 103 LA; Pulse 101; iw 16:37 BP 153 / 100 RA; Pulse 100; iw 17:43 BP 133 / 89; Pulse 103; Resp 18 S; Pulse Ox 98% on R/A; aa5 19:47 BP 145 / 79; Pulse 104; Resp 18 S; Pulse Ox 98% on R/A; as6 20:26 BP 138 / 79; Pulse 101; Resp 18 S; Temp 98.7(O); Pulse Ox 96% on R/A; as6 21:17 BP 96 / 54; Pulse 101; Resp 16 S; Pulse Ox 93% on 2 lpm NC; as6 23:22 BP 123 / 77; Pulse 100; Resp 18 S; Pulse Ox 96% on R/A; as6 0304 00:01 BP 123 / 77; Pulse 98; Resp 18 S; Pulse Ox 95% on R/A; as6 MDM: 12/17 16:25 Patient medically screened. ms3 19:13 Differential diagnosis: bowel obstruction, gastritis, non-specific abd pain. I ms3 considered the following discharge prescriptions or medication management in the emergency department Medications were administered in the Emergency Department. See MAR. Independent interpretation of the following test(s) in the Emergency Department CT Scan: My interpretation is CT images reviewed by me do not show free air.. Historians other than the Patient: EMS: [facility], Senthil Dunn, Safety Lead. 19:15 Transition of care: After a detail discussion of the patient's case, care is ms3 transferred to Joe Garcia MD. 19:22 ED course: Patient is 57-year-old male EMS for massive upper abdominal pain, discharged sp4 from [facility] yesterday where he was managed for congestive heart failure. Patient care was assumed from Dr. Rosales at 7 PM. ED course: No acute abdominal abnormality based on the CAT scan report. Patient has history of left open reduction internal fixation of the left femur. Patient has pain pump that has not been refilled for the past 5 years. CAT scan revealed moderate ventral hernia without obstruction. Once patient improves Symptomatically he may be discharged home.. 21:14 ED course: Patient persisted with complaint of abdominal pain and nausea, he was given sp4 additional dose of morphine for pain and also Geodon for mild persistent agitation, patient's vital signs are stable and oxygen saturation 90% on room air, because of persistent pain we have requested patient to be admitted under Dr. Valdez for observation and pain/nausea management. . 21:20 Data reviewed: vital signs, nurses notes, EMS record, diagnostic data from outside sp4 facility, old medical records, lab test result(s), EKG, radiologic studies. Management of patient was discussed with the following: Hospitalist: Dariel ISAACS . 12/17 16:25 Order name: CBC with Diff 3 12/17 16:25 Order name: CMP ms3 12/17 16:25 Order name: Lipase ms3 12/17 16:25 Order name: Urine Microscopic Only 3 12/17 16:25 Order name: CT Abd/Pelvis - IV Contrast Only 3 12/17 16:25 Order name: IV Saline Lock; Complete Time: 17:03 ms3 12/17 16:25 Order name: Labs collected and sent; Complete Time: 17:03 ms3 12/17 16:25 Order name: Urine Dipstick-Ancillary (obtain specimen); Complete Time: 17:51 3 12/17 16:31 Order name: EKG Strip; Complete Time: 16:52 ms3 12/17 16:31 Order name: EKG; Complete Time: 16:32 ms3 12/17 16:31 Order name: Cardiac monitoring; Complete Time: 16:52 ms3 12/17 16:46 Order name: CBC with Automated Diff; Complete Time: 16:55 EDMS 12/17 16:57 Order name: Comprehensive Metabolic Panel; Complete Time: 17:03 EDMS 12/17 16:57 Order name: Lipase; Complete Time: 17:03 EDMS 12/17 17:48 Order name: Urine Dipstick-Ancillary; Complete Time: 18:06 EDMS 12/17 18:05 Order name: CT; Complete Time: 18:06 EDMS 12/17 18:08 Order name: Urine Microscopic Only; Complete Time: 18:34 EDMS 12/17 18:38 Order name: Lactate w/ 2H reflex if indic. ms3 12/17 18:41 Order name: UDS la1 12/17 19:36 Order name: Urine Drug Screen; Complete Time: 19:38 EDMS 12/17 20:09 Order name: SARS RAPID as6 12/17 20:24 Order name: Lactate w/ 2H reflex if indic.; Complete Time: 20:40 EDMS 12/17 20:40 Order name: Troponin High Sensitivity sp4 12/17 20:42 Order name: SARS-COV-2 Antigen Rapid; Complete Time: 20:45 EDMS 12/17 20:45 Order name: PROBNP sp4 12/17 20:45 Order name: EKG - Nurse/Tech; Complete Time: 21:17 sp4 12/17 21:10 Order name: Troponin High Sensitivity; Complete Time: 21:13 EDMS 12/17 21:17 Order name: NT PRO-BNP; Complete Time: 21:21 EDMS 12/17 21:23 Order name: US Abdomen Limited la1 12/18 00:30 Order name: Lactate Sepsis 2 HR Follow-up EDMS EC:37 Rate is 102 beats/min. Rhythm is regular. Left axis deviation noted. MO interval is ms3 normal. QRS interval is normal. Clinical impression: Sinus tachycardia. Interpreted by me. Reviewed by me. Administered Medications: 16:55 Drug: Zofran (Ondansetron) 4 mg Route: IVP; Site: left antecubital; aa5 17:03 Follow up: Response: No adverse reaction aa5 16:57 Drug: morphine 4 mg Route: IVP; Infused Over: 4 mins; Site: left antecubital; aa5 17:04 Follow up: Response: No adverse reaction aa5 17:00 Drug: NS 0.9% 1000 ml Route: IV; Rate: 1 bolus; Site: left antecubital; aa5 04 01:06 Follow up: Response: No adverse reaction; IV Status: Completed infusion; IV Intake: as6 1000ml 12/17 19:42 Drug: Phenergan (promethazine) 25 mg Route: IM; Site: left ventrogluteal; as6 12/18 01:06 Follow up: Response: No adverse reaction 6 12/17 19:42 Drug: PHENobarbital 60 mg Route: PO; 12/18 01:05 Follow up: Response: No adverse reaction 6 12/17 19:43 Drug: Bentyl (dicyclomine) 20 mg Route: IM; Site: left ventrogluteal; as12/18 01:06 Follow up: Response: No adverse reaction 12/17 20:23 Drug: morphine 4 mg Route: IVP; Infused Over: 4 mins; Site: left antecubital; as12/18 01:05 Follow up: Response: No adverse reaction 12/17 20:23 Drug: Zofran (Ondansetron) 4 mg Route: IVP; Site: left antecubital; as6 12/18 01:04 Follow up: Response: No adverse reaction 12/17 20:23 Drug: Geodon (ziprasidone) 20 mg Route: IM; Site: right deltoid; 12/18 01:04 Follow up: Response: No adverse reaction as6 Disposition Summary: 12/17/22 21:20 Hospitalization Ordered Hospitalization Status: Observation sp4 Provider: Donny Garner4 Location: Telemetry/MedSur (observation) sp4 Condition: Stable sp4 Problem: new sp4 Symptoms: have improved sp4 Bed/Room Type: Standard sp4 Room Assignment: 219(12/17/22 23:18) cg Diagnosis - Upper abdominal pain, unspecified sp4 - Nausea with vomiting, unspecified sp4 - Restlessness and agitation sp4 - Diastolic (congestive) heart failure sp4 - COPD/ Chronic obstructive pulmonary disease, unspecified sp4 - Acidosis sp4 Forms: - Medication Reconciliation Form sp4 - SBAR form sp4 Signatures: Dispatcher [employer] Evi Zhang RN RN aa5 Dariel Florian, MANAGER ORANGE-C MANAGER ORANGE-Etta1 Mirlande Cagle RN RN cg Bobby Ramos DO DO ms3 Matthias Gomez RN RN as6 Joe Garcia MD MD sp4 Corrections: (The following items were deleted from the chart) 12/17 23:18 21:20 sp4 cg
--- NOTE | 2022-12-17 21:20 | ER ---
Nurse's Notes [facility] Name: Lexa Bower Age: 57 yrs Sex: Male : 1965 Arrival Date: 12/17/2022 Time: 16:19 Bed 5 Private MD: Diagnosis: Upper abdominal pain, unspecified;Nausea with vomiting, unspecified;Restlessness and agitation;Diastolic (congestive) heart failure;COPD/ Chronic obstructive pulmonary disease, unspecified;Acidosis Presentation: 12/17 16:22 Chief complaint: Patient states: epigastric pain x 2 days ago, pt also reports aa5 nausea/vomiting. Denies diarrhea. Reports bloody stools on and off x 1 year ago. Coronavirus screen: vomiting. Ebola Screen: Patient denies travel to an Ebola-affected area in the 21 days before illness onset. Initial Sepsis Screen: Does the patient meet any 2 criteria? HR > 90 bpm. Does the patient have a suspected source of infection? No. Patient's initial sepsis screen is negative. Risk Assessment: Do you want to hurt yourself or someone else? Patient reports no desire to harm self or others. Onset of symptoms was December 15, 2022. 16:22 Acuity: JENNY 3 aa5 16:22 Method Of Arrival: EMS: [facility] aa5 Historical: - Allergies: 16:24 NKDA; aa5 - Home Meds: 16:24 atorvastatin 20 mg oral tab once daily [Active]; furosemide 40 mg oral tab take 2 tabs aa5 in the morning, 1 tab midday, and 1 tab in the evening [Active]; spironolactone 25 mg Oral tab once daily [Active]; metoprolol succinate 25 mg oral Tb24 1/2 tab in the morning and 1/2 tab every evening. [Active]; - PMHx: 16:24 COPD; Depression; Diabetes - IDDM; GERD; High Cholesterol; Hypertension; Migraines; aa5 Seizures; - PSHx: 16:24 Pain pump (without any medication x 5 yrs); aa5 - Immunization history:: Adult Immunizations up to date. - Social history:: Smoking status: Patient denies any tobacco usage or history of. Screenin:20 [facility] ED Fall Risk Assessment (Adult) Impaired Gait Yes (1 pt). Abuse screen: Denies iw threats or abuse. Denies injuries from another. 19:47 Nutritional screening: No deficits noted. Tuberculosis screening: No symptoms or risk as6 factors identified. Assessment: 16:22 General: Appears uncomfortable, Behavior is cooperative, restless. Pain: Complains of aa5 pain in epigastric area Pain currently is 10 out of 10 on a pain scale. Quality of pain is described as sharp, Is continuous, Noted to be restless. Neuro: Level of Consciousness is awake, alert, obeys commands, Oriented to person, place, time, situation. Cardiovascular: Heart tones S1 S2 present Rhythm is regular. Respiratory: Airway is patent Respiratory effort is even, unlabored, Respiratory pattern is regular, symmetrical. GI: Abdomen is round Bowel sounds present X 4 quads. Abdomen is tender to palpation in epigastric area Reports nausea, vomiting. : No signs and/or symptoms were reported regarding the genitourinary system. EENT: No signs and/or symptoms were reported regarding the EENT system. Derm: Skin is pink, warm \T\ dry. Musculoskeletal: Range of motion: intact in all extremities. 17:30 Reassessment: Patient is alert, oriented x 3, equal unlabored respirations, skin aa5 warm/dry/pink. Patient states feeling better. Patient states symptoms have improved. General: Appears comfortable. 18:00 Reassessment: Patient and/or family updated on plan of care and expected duration. Pain iw level reassessed. Patient is alert, oriented x 3, equal unlabored respirations, skin warm/dry/pink. family reports pt c/o nausea , advised that ER physician is tied up in another pt room. 18:35 Reassessment: Dr. Ramos at beside speaking to pt and family. iw 19:08 Reassessment: Patient appears in no apparent distress at this time. Patient and/or iw family updated on plan of care and expected duration. Pain level reassessed. blankets given. 19:48 General: Appears uncomfortable, pt dry heaving . as6 20:28 General: mother [phone]. as6 21:17 Reassessment: Patient states feeling better. Patient states symptoms have improved. as6 Vital Signs: 16:22 BP 164 / 116; Pulse 102; Resp 20 S; Temp 97.7(O); Pulse Ox 95% on R/A; Pain 10/10; aa5 16:37 BP 168 / 103 LA; Pulse 101; iw 16:37 BP 153 / 100 RA; Pulse 100; iw 17:43 BP 133 / 89; Pulse 103; Resp 18 S; Pulse Ox 98% on R/A; aa5 19:47 BP 145 / 79; Pulse 104; Resp 18 S; Pulse Ox 98% on R/A; as6 20:26 BP 138 / 79; Pulse 101; Resp 18 S; Temp 98.7(O); Pulse Ox 96% on R/A; as6 21:17 BP 96 / 54; Pulse 101; Resp 16 S; Pulse Ox 93% on 2 lpm NC; as6 23:22 BP 123 / 77; Pulse 100; Resp 18 S; Pulse Ox 96% on R/A; as6 0304 00:01 BP 123 / 77; Pulse 98; Resp 18 S; Pulse Ox 95% on R/A; as6 ED Course: 12/17 16:19 Patient arrived in ED. iw 16:22 Evi Mccoy RN is Primary Nurse. aa5 16:22 Arm band placed on Patient placed in an exam room, on a stretcher. aa5 16:23 Triage completed. aa5 16:25 Bobby Ramos DO is Attending Physician. ms3 16:36 Initial lab(s) drawn, by il, sent to lab. Inserted saline lock: 20 gauge in left iw antecubital area, using aseptic technique. Blood collected. 17:51 Urine Microscopic Only Sent. zm 19:00 Report given to KATHY Rizzo. aa5 19:13 Attending Physician role handed off by Bobby Ramos DO sp4 19:13 Joe Garcia MD is Attending Physician. sp4 19:47 Bed in low position. Call light in reach. Side rails up X 1. Adult w/ patient. as6 20:29 No provider procedures requiring assistance completed. Patient admitted, IV remains in as6 place. 20:33 Primary Nurse role handed off by Evi Mccoy RN wm 21:19 Donny Garner MD is Hospitalizing Provider. sp4 Administered Medications: 16:55 Drug: Zofran (Ondansetron) 4 mg Route: IVP; Site: left antecubital; aa5 17:03 Follow up: Response: No adverse reaction aa5 16:57 Drug: morphine 4 mg Route: IVP; Infused Over: 4 mins; Site: left antecubital; aa5 17:04 Follow up: Response: No adverse reaction aa5 17:00 Drug: NS 0.9% 1000 ml Route: IV; Rate: 1 bolus; Site: left antecubital; aa5 12/18 01:06 Follow up: Response: No adverse reaction; IV Status: Completed infusion; IV Intake: as6 1000ml 12/17 19:42 Drug: Phenergan (promethazine) 25 mg Route: IM; Site: left ventrogluteal; as6 12/18 01:06 Follow up: Response: No adverse reaction as6 12/17 19:42 Drug: PHENobarbital 60 mg Route: PO; as6 12/18 01:05 Follow up: Response: No adverse reaction as6 12/17 19:43 Drug: Bentyl (dicyclomine) 20 mg Route: IM; Site: left ventrogluteal; as6 12/18 01:06 Follow up: Response: No adverse reaction as6 12/17 20:23 Drug: morphine 4 mg Route: IVP; Infused Over: 4 mins; Site: left antecubital; as6 12/18 01:05 Follow up: Response: No adverse reaction as6 12/17 20:23 Drug: Zofran (Ondansetron) 4 mg Route: IVP; Site: left antecubital; as6 12/18 01:04 Follow up: Response: No adverse reaction as6 12/17 20:23 Drug: Geodon (ziprasidone) 20 mg Route: IM; Site: right deltoid; as6 12/18 01:04 Follow up: Response: No adverse reaction as6 Medication: 12/17 19:47 VIS not applicable for this client. as6 Intake: 12/18 01:06 IV: 1000ml; Total: 1000ml. as6 Outcome: 12/17 21:20 Decision to Hospitalize by Provider. sp4 12/18 00:59 Patient left the ED. as6 Signatures: Corry Saucedo RN KATHY iw Evi Mccoy RN RN aa5 Bobby Ramos DO DO ms3 Chloe Paige Ashby, RN RN as6 Valerie Salazar Sergey, MD MD sp4 Corrections: (The following items were deleted from the chart) 12/17 18:39 18:19 Reassessment: Patient appears in no apparent distress at this time. Patient iw and/or family updated on plan of care and expected duration. Pain level reassessed. Patient is alert, oriented x 3, equal unlabored respirations, skin warm/dry/pink. iw
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
[2022-12-18] MEDS ORDERED: PROMETHAZINE INJ 25 MG/ML AMP IV PRN (00:13)
[2022-12-18 01:14] VITALS: BMI 36.1
[2022-12-18] MEDS ORDERED: ALBUTEROL 2.5 MG/3 ML NEB SOL NEB PRN (01:42)
[2022-12-18] MEDS ORDERED: PIPERACIL/TAZO 3.375 GM VIAL IV ONE (01:45)
[2022-12-18] MEDS: PIPER TAZO 3.375 GM in NA CHLORIDE 0.9% 100 ML IV SCH ×3 (01:48→16:32)
[2022-12-18] MEDS: NA CHLORIDE 0.9% 1,000 ML IV SCH ×3 (01:48→13:33)
[2022-12-18 05:46] LABS: Absolute Lymphocytes (CBC) 1.9 K/uL (0.7-4.9); Hematocrit 44.3 % (39.6-49.0); Lymphocytes % 22.3 % (15.3-44.8); MCV 82.8 fL (80-100); MPV 8.1 fL (7.6-11.3); RBC Red Blood Cell Count 5.35 M/uL (4.33-5.43)
[2022-12-18] MEDS: INSULIN -REGULAR HUMAN 50 UNIT/0.5 ML ML SQ SCH ×4 (06:00→21:00)
[2022-12-18 06:11] LABS: Albumin 3.5 g/dL (3.4-5.0); Bilirubin Total 0.8 mg/dL (0.2-1.0); Potassium 3.7 mmol/L (3.5-5.1); Thyroid Stimulating Hormone 1.46 uIU/mL (0.358-3.740)
[2022-12-18] MEDS: MORPHINE 2 MG/ML SYR IV PRN ×3 (06:23→18:09)
[2022-12-18] MEDS ORDERED: INSULIN -REGULAR HUMAN 50 UNIT/0.5 ML ML SQ SCH (07:30)
--- NOTE | 2022-12-18 07:52 | RAD REPORT ---
EXAM DESCRIPTION: RAD - Chest Single View - 12/18/2022 6:55 am CLINICAL HISTORY: hypoxia COMPARISON: <Comparisons> FINDINGS: Lines: Left subclavian approach ICD. Lungs: No evidence of edema or pneumonia. Pleural: No significant pleural effusions or pneumothorax. Cardiac: The heart size is within normal limits. Mediastinum: Within normal limits. Bones: No acute fractures. Other: None IMPRESSION: No acute cardiopulmonary disease.
--- NOTE | 2022-12-18 08:33 | P.PN ---
Subjective Date of Service: 12/18/22 Chief Complaint: Intractable abdominal pain/vomiting Patient admitted with abdominal pain sudden in onset no significant change requiring pain medications denies nausea vomiting or diarrhea has a history of CHF patient had surgeries long time ago of asthma/COPD Review of Systems Unremarkable Physical Examination - Vital Signs Temperature: 98.1 F Blood Pressure: 108/65 Pulse: 97 Respirations: 18 Pulse Ox (%): 96 - Physical Exam General: Alert, In no apparent distress, Oriented x3 Respiratory: Clear to auscultation bilaterally Cardiovascular: No edema, Regular rate/rhythm Gastrointestinal: Tenderness (Tenderness in the epigastrium) - Studies Laboratory Data (last 24 hrs) 12/17/22 16:30: Sodium 131 L, Potassium 3.9, BUN 45 H, Creatinine 1.42 H, Glucose 285 H, Total Bilirubin 0.7, AST 13 L, ALT 20, Alkaline Phosphatase 145 H, Lipase 13 12/17/22 16:30: WBC 6.90, Hgb 16.4, Hct 48.6, Plt Count 278 Assessment And Plan - Current Problems (Diagnosis) (1) Epigastric abdominal pain Current Visit: Yes Status: Acute Plan: Patient is 57 years of age complaining of sudden onset of abdominal pain and is very tender in the epigastrium CT scan of the abdomenSmall to moderate ventral hernia Tiny nonobstructing left renal calculus ultrasound of the abdomen is indeterminate for some pericholecystic fluid recommend a HIDA scan General surgical consult White count is normal patient is currently on Zosyn vital signs oxygenation stable liver function tests are also normal chest x-ray is clear
[2022-12-18] MEDS: ENOXAPARIN 40 MG/0.4 ML SQ SCH (10:22)
[2022-12-18] MEDS ORDERED: INFLUENZA VACCINE (for 6+ mo) 0.5 ML DOSE IMVAC ONE (12:00)
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
--- NOTE | 2022-12-18 15:18 | RAD REPORT ---
EXAM DESCRIPTION: US - Abdomen Exam Limited - 12/17/2022 11:00 pm CLINICAL HISTORY: Abdominal pain. TECHNIQUE: Abdominal ultrasound, limited, right upper quadrant. COMPARISON: None. FINDINGS: Liver: There is increased echotexture within the liver suggestive of fatty liver infiltrat ion. Gallbladder: The gallbladder is mildly distended and demonstrates evidence of internal debris. There is no evidence of gallbladder wall thickening. There is a small amount of pericholecystic fluid. Common Bile Duct: Normal caliber measuring 3 mm in AP diameter. IMPRESSION: 1. Mild gallbladder distention with pericholecystic fluid. Findings are indeterminate. A HIDA scan may be of benefit. 2. Diffuse fatty liver infiltration. Electronically signed by: Odell Gordon MD 12/17/2022 11:49 PM BEAM MACHINE OPERATOR Due to temporary technical issues with the PACS/Fluency reporting system, reports are being signed by the in house radiologists without review as a courtesy to insure prompt reporting. The interpreting radiologist is fully responsible for the content of the report.
[2022-12-18] MEDS ORDERED: MELATONIN 5 MG TABLET PO PRN (18:59)
[2022-12-18] MEDS: ZOLPIDEM TARTRATE 10 MG TABLET PO PRN (21:32)
[2022-12-19] MEDS: MORPHINE 2 MG/ML SYR IV PRN ×2 (00:06→05:39)
[2022-12-19] MEDS: PIPER TAZO 3.375 GM in NA CHLORIDE 0.9% 100 ML IV SCH ×3 (00:07→16:15)
[2022-12-19] MEDS: NA CHLORIDE 0.9% 1,000 ML IV SCH ×4 (00:08→22:59)
[2022-12-19 03:00] LABS: Absolute Lymphocytes (CBC) 2.5 K/uL (0.7-4.9); Hematocrit 40.4 % (39.6-49.0); Lymphocytes % 42.2 % (15.3-44.8); MCV 82.9 fL (80-100); MPV 8.1 fL (7.6-11.3); RBC Red Blood Cell Count 4.87 M/uL (4.33-5.43)
[2022-12-19 03:22] LABS: Bilirubin Total 0.6 mg/dL (0.2-1.0); Potassium 3.8 mmol/L (3.5-5.1)
[2022-12-19] MEDS: ONDANSETRON 4 MG/2 ML VIAL IV PRN ×2 (08:58→15:08)
[2022-12-19] MEDS: ENOXAPARIN 40 MG/0.4 ML SQ SCH (08:59)
[2022-12-19] MEDS: INSULIN -REGULAR HUMAN 50 UNIT/0.5 ML ML SQ SCH ×4 (09:00→21:00)
--- NOTE | 2022-12-19 09:11 | P.PN ---
Subjective Date of Service: 12/19/22 Chief Complaint: Intractable abdominal pain/vomiting Patient is not doing well still complaining of severe abdominal pain able to do the HIDA scan and cannot stay off pain medications Review of Systems Gastrointestinal: Abdominal Pain Physical Examination - Vital Signs Temperature: 97.1 F Blood Pressure: 104/67 Pulse: 102 Respirations: 18 Pulse Ox (%): 96 - Physical Exam General: Alert, Severe distress Gastrointestinal: Tenderness, Rebound Integumentary: No rashes, No breakdown Assessment And Plan - Current Problems (Diagnosis) (1) Epigastric abdominal pain Current Visit: Yes Status: Acute Plan: Patient admitted with abdominal pain he still complains of severe abdominal pain very diffuse pain generalized tenderness with rebound refused to do a HIDA scan Labs unremarkable white count is normal patient does have a ventral hernia patient has a pain pump in place I have discussed again with the patient to hold all pain medication tonight and do a HIDA scan first thing in the morning n.p.o. from Dr. Suazo about the patient's condition ordered another x-ray of the abdomen
--- NOTE | 2022-12-19 10:53 | PN ---
Date of Progress Note: 12/19/2022 Subjective: Patient is tolerating clear liquids, but is having significant abdominal pain right now. No nausea or vomiting, however. Objective: Vital Signs: Stable. He is afebrile. His HIDA scan has still not been done yet. Laboratory Data: Reviewed. Essentially within normal limits. His abdomen is tender on the right si de, but there is no peritonitis elsewhere. Assessment: Incarcerated incisional hernia and possible cholecystitis. Recommendations: Continue parenteral pain and nausea medication as needed, IV antibiotics, and await HIDA scan after which I will make the appropriate surgical recommendation. Please keep the patient n.p.o. after midnight as I anticipate surgery tomorrow. /MODL Voice ID: [id number] Report ID: [id number]
[2022-12-19] MEDS: HYDROMORPHONE HCL 2 MG/ML inj IV PRN ×4 (10:54→22:56)
[2022-12-19 10:56] LABS: Protime INR 0.96
--- NOTE | 2022-12-19 14:17 | RAD REPORT ---
EXAM DESCRIPTION: RAD - Abdomen 1 View (KUB) - 12/19/2022 1:59 pm CLINICAL HISTORY: Abdomen pain FINDINGS: The bowel gas pattern is unremarkable. No significant abnormal calcification is displayed Neurostimulator device in place
[2022-12-19] MEDS: ZOLPIDEM TARTRATE 10 MG TABLET PO PRN (19:31)
[2022-12-20] MEDS: PIPER TAZO 3.375 GM in NA CHLORIDE 0.9% 100 ML IV SCH ×3 (01:11→19:34)
[2022-12-20 03:40] LABS: Absolute Lymphocytes (CBC) 2.3 K/uL (0.7-4.9); Hematocrit 38.4 % (39.6-49.0); MCV 82.8 fL (80-100); MPV 8.5 fL (7.6-11.3); RBC Red Blood Cell Count 4.64 M/uL (4.33-5.43)
[2022-12-20 03:57] LABS: Albumin 3.3 g/dL (3.4-5.0); Bilirubin Total 0.5 mg/dL (0.2-1.0); Potassium 4.1 mmol/L (3.5-5.1); Protein, Total 6.2 g/dL (6.4-8.2)
--- NOTE | 2022-12-20 07:16 | P.PN ---
Date of Service: 12/20/22 Subjective: Complains of severe abdominal pain no significant changes overnight HIDA today ROS: 10 point ROS as noted above, otherwise negative Physical Exam: GEN: Alert, oriented, moderate distress HEENT: Normal conjunctiva, sclera anicteric CV: Regular rate and rhythm, no edema Pulm: Nonlabored respirations on room air ABD: Soft, Tenderness diffusely Neuro: Normal speech, normal affect Problem List: Epigastric abdominal pain/vomiting Chronic systolic congestive heart failure Diabetes mellitus type 2insulin-dependent with hyperglycemia Hypertension Hyperlipidemia Chronic pain Continue IVF NPO and pain medication as needed HIDA per Dr. Suazo CT shows small ventral hernia ABD ultrasound pending Upper abdominal pain, moderate tenderness epigastric/right upper quadrant Continue sliding scale insulin KUB X-ray negative; no calcification tentative plan for hernia repair in AM, +/- hortencia pending HIDA results VTE: Lovenox Code: Full Dispo: ~48 hours
[2022-12-20] MEDS: INSULIN -REGULAR HUMAN 50 UNIT/0.5 ML ML SQ SCH ×4 (08:46→22:09)
[2022-12-20] MEDS: ENOXAPARIN 40 MG/0.4 ML SQ SCH (08:47)
[2022-12-20] MEDS ORDERED: NA CHLORIDE 0.9% 1,000 ML ONE (15:05)
[2022-12-20] MEDS ORDERED: CEFOXITIN SODIUM 1 GM/VIAL ONE (15:19)
[2022-12-20] MEDS ORDERED: FENTANYL CITR 250 MCG/5 ML ONE (15:20)
[2022-12-20] MEDS ORDERED: ROCURONIUM 50 MG/5 ML VIAL IV ONE (15:21)
[2022-12-20] MEDS ORDERED: LIDOCAINE 2% MPF 5 ML VIAL ONE (15:21)
[2022-12-20] MEDS ORDERED: propofoL 200 MG/20 ML VIAL IV ONE (15:22)
[2022-12-20] MEDS ORDERED: KETOROLAC 30 MG/ML INJ ONE (15:22)
[2022-12-20] MEDS ORDERED: dexAMETHasone 10 MG/ML VIAL ONE (15:23)
[2022-12-20] MEDS ORDERED: GLYCOPYRROLATE 0.2 MG/ML SYR ONE (15:23)
[2022-12-20] MEDS ORDERED: ONDANSETRON 4 MG/2 ML VIAL ONE ×2 (15:23→17:26)
[2022-12-20] MEDS ORDERED: NEOSTIGMINE 1 MG/ML -10 ML VIAL ONE (15:24)
[2022-12-20] MEDS ORDERED: Phenylephrine HCl 10 MG/ML 1 ML VIAL ONE (15:33)
--- NOTE | 2022-12-20 15:56 | PN ---
Date of Progress Note: 12/20/2022 Subjective: The patient is still complaining of right-sided abdominal pain, but he does not require constant medication. He is awaiting his HIDA scan, which is scheduled for this afternoon. No nausea or vomiting. Pain is controlled by parenteral pain medications. Please note, the patient does have a pain pump in place, but has not followed up with a pain management doctor in quite some time. Objective: Vital Signs: Stable, afebrile. Abdomen: Tender on the right side. On the left side, there is no tenderness. There is minimal rebou nd, but no rigidity or guarding. Laboratory Data: White count is normal. Chemistry reviewed. Assessment: Abdominal pain, incarcerated incisional hernia, possible cholecystitis. Recommendations: The patient will get a HIDA scan. Based on the results, we will proceed accordingl y. If the HIDA scan is positive for cholecystitis, we will remove the gallbladder. If negative, we will proceed with repair of the incisional right paramedian incarcerated hernia. Plan of care, risks , benefits, and alternatives all discussed with the patient. He understands and agrees. CESIA/MARGARITAL Voice ID: [id number] Report ID: [id number]
--- NOTE | 2022-12-20 16:00 | RAD REPORT ---
EXAM DESCRIPTION: NM - Hepatobiliary System Imagin - 12/20/2022 3:00 pm CLINICAL HISTORY: ICD TECHNIQUE: The patient was administered 7 millicuries technetium Choletec and images of the abdomen obtained for 17 minutes. The patient could not tolerate additional images being obtained so the examination was ended. FINDINGS: Liver demonstrates prompt radiotracer uptake. Activity is seen not seen within the gallbladder by 17 minutes. Uptake is seen within small bowel IMPRESSION: The examination is nondiagnostic as the patient was unable to complete the exam
--- NOTE | 2022-12-20 16:47 | EKG ---
Test Date: 2022-12-17 Test Time: 21:16:20 Concession Cashier: MEASUREMENT RESULTS: Intervals: Rate: 101 WA: 146 QRSD: 98 QT: 368 QTc: 477 [place]: P: 79 WA: 146 QRS: -36 T: 87 INTERPRETIVE STATEMENTS: Sinus tachycardia Left axis deviation ST & T wave abnormality, consider lateral ischemia Abnormal ECG Compared to ECG 07/23/2016 23:16:04 Left-axis deviation now present ST (T wave) deviation now present Possible ischemia now present Electronically Signed On 12-20-22 16:39:47 CARD FIXER by Ej Christopher
--- NOTE | 2022-12-20 16:48 | EKG ---
Test Date: 2022-12-17 Test Time: 16:27:18 Sponge Buffer: DINESH MEASUREMENT RESULTS: Intervals: Rate: 102 MO: 140 QRSD: 96 QT: 366 QTc: 477 [place]: P: 81 MO: 140 QRS: -42 T: 76 INTERPRETIVE STATEMENTS: Sinus tachycardia Left axis deviation Abnormal ECG Compared to ECG 07/23/2016 23:16:04 Left-axis deviation now present Electronically Signed On 12-20-22 16:40:07 DIRECTOR OF SLEEP by Ej Christopher
[2022-12-20] MEDS ORDERED: LABETALOL 20 MG/4ML SYRINGE IV ONE (17:16)
--- NOTE | 2022-12-20 17:19 | P.OP ---
Date of Service: 12/20/22 Preop diagnosis: Incarcerated incisional hernia, possible cholecystitis, abdominal pain Postop diagnosis: Same, patient did not have any laparoscopic evidence of acute cholecystitis Procedure performed: Diagnostic laparoscopy, extensive lysis of adhesion and laparoscopic assisted repair of incarcerated incisional hernia Surgeon: Jerzy Suazo MD Intellectual Property Lawyer: Chitra HERNANDEZ Estimated blood loss: Minimal Specimen: Hernia sac and contents Findings: As above Anesthesia: General Complications: None Drains: None Fluids and blood products: Nonapplicable Disposition: Recovery room Brief history: Patient is a 57-year-old gentleman came in with right-sided abdominal pain. Initial work-up revealed incarcerated incisional hernia and possible cholecystitis. Patient had a HIDA scan performed today, which patient could not tolerate all the way through. Patient did have his gallbladder filled with contrast. And contrast was visible in the small bowel as well. This is evidence that the patient does not have acute cholecystitis. Discussed the possibility of removing the gallbladder with the patient prior to the surgery. We discussed based on the evidence seen laparoscopically we will proceed accordingly. Laparoscopically, the gallbladder did not have any evidence of acute cholecystitis. There was no gallbladder wall thickening, there was no Pericholecystic Fluid and there was no distention of the gallbladder. Therefore, intraoperative decision was made not to remove the gallbladder at this time. Operative note: Patient brought to the OR and placed in supine position. General anesthesia begun. Patient prepped and draped in usual sterile fashion. Marcaine 0.5% infiltrated locally. 15 blade used to make a 1 cm left upper quadrant incision. Subcutaneous tissue divided and bleeding controlled cautery. Fascia identified and divided. #1 Vicryl stay suture placed. Peritoneal cavity entered with sharp and blunt dissection. 12 mm trocar placed into the peritoneal cavity under direct vision. Laparoscopy revealed extensive adhesions throughout the abdomen. 5 mm trocar placed in the left lower quadrant under direct vision. LigaSure utilized to lyse all the adhesions on the left side of the abdomen and work towards the midline. Incarcerated omentum identified near the midline on the right side above the umbilicus. Sharp and blunt dissection utilized to free the omentum from the hernia. A 4 cm incision made over the hernia. Subcutaneous tissue divided and hernia sac identified. Sharp and blunt dissection utilized to work towards the fascial defect. Patient actually had 2 incarcerated incisional hernia. Both had omentum in it. These were freed from the surrounding edges. The 2 openings were connected. One opening approximately 3 cm in length was created. Fascial edges were dissected and were free of any adhesions. #1 PDS suture was used to close the hernia defect. Pneu moperitoneum was reestablished. Further lysis of adhesions towards the right upper quadrant was performed. 5 mm trocar was placed in the right abdomen. The gallbladder was visualized. The gallbladder was thin-walled, without distention and no pericholecystic fluid. There was extensive adhesions in the nearby abdomen. As the problem had been addressed with the repair of the hernia, intraoperative decision was made not to proceed with the gallbladder surgery because there was no evidence of any acute inflammation at this time. Patient also does not have cholelithiasis. All trocars were removed under direct vision. Stay sutures were tied to each other to reapproximate the fascial defect. Subcutaneous wounds irrigated and bleeding controlled with cautery. 3- 0 chromic used approximate subcutaneous tissue. Staple used to close skin. Sterile dressing applied and patient awakened. Patient taken to recovery room in good general condition. CC:
[2022-12-20] MEDS: HYDROMORPHONE HCL 1 MG/ML INJ ONE ×4 (17:23→17:48)
[2022-12-20] MEDS ORDERED: HYDROCODONE/APAP 7.5/325 MG TAB PO PRN (17:43)
[2022-12-20] MEDS: NA CHLORIDE 0.9% 1,000 ML IV SCH ×2 (18:53→22:07)
[2022-12-20] MEDS: HYDROMORPHONE HCL 2 MG/ML inj IV PRN (21:00)
[2022-12-20] MEDS: ZOLPIDEM TARTRATE 10 MG TABLET PO PRN (22:15)
[2022-12-21] MEDS: PIPER TAZO 3.375 GM in NA CHLORIDE 0.9% 100 ML IV SCH ×2 (01:41→09:22)
[2022-12-21] MEDS: HYDROMORPHONE HCL 2 MG/ML inj IV PRN ×3 (02:06→10:31)
[2022-12-21 03:33] LABS: Absolute Lymphocytes (CBC) 0.5 K/uL (0.7-4.9); Hematocrit 39.1 % (39.6-49.0); Lymphocytes % 7.7 % (15.3-44.8); MCV 82.4 fL (80-100); MPV 8.8 fL (7.6-11.3); RBC Red Blood Cell Count 4.75 M/uL (4.33-5.43)
[2022-12-21 03:50] LABS: Magnesium 1.5 mg/dL (1.6-2.4); Phosphorus 3.9 mg/dL (2.5-4.9)
[2022-12-21] MEDS: INSULIN -REGULAR HUMAN 50 UNIT/0.5 ML ML SQ SCH ×2 (09:21→12:39)
[2022-12-21] MEDS: ENOXAPARIN 40 MG/0.4 ML SQ SCH (09:22)
[2022-12-21 11:33] VITALS: O2SAT 96
--- NOTE | 2022-12-21 12:59 | P.DS ---
Admission Date: 12/19/22 Discharge Date: 12/21/22 Disposition: ROUTINE DISCHARGE Discharge Condition: GOOD Reason for Admission: Intractable abdominal pain/vomiting Brief History of Present Illness: 57-year-old male with history of CHF, insulin-dependent diabetes, hyperlipidemia, chronic pain, hypertension presented to the emergency department for vomiting, abdominal pain. He was evaluated in the emergency department, his labs were significant for sodium 131 chloride 96 creatinine 1.42 GFR [address] abdomen pelvis was performed which revealed small to moderate ventral hernia, tiny nonobstructing left renal calculus. Patient received multiple medications including morphine, Zofran, Bentyl, Phenergan, phenobarbital, Geodon and has only mild improvement in his symptoms. EKG without ST elevations, troponin negative BNP mildly elevated. A right upper quadrant ultrasound was ordered to further evaluate the gallbladder. Patient admitted for further evaluation and management of intractable vomiting/abdominal pain. Hospital Course: Diagnosis Epigastric abdominal pain/vomiting Incarcerated incisional hernia Chronic systolic congestive heart failure Diabetes mellitus type 2insulin-dependent with hyperglycemia Hypertension Hyperlipidemia Chronic pain Hospital course Patient admitted to the medical floor and treated supportively with IV fluid, pain medications and antiemetics. Right upper quadrant ultrasound showed mild gallbladder distention with pericholecystic fluid. HIDA scan was recommended. HIDA scan done was nondiagnostic because it was incomplete. Patient treated with IV Zosyn. He was seen and evaluated by surgery Dr. Suazo who did diagnostic laparoscopy and incarcerated hernia repaired with lysis of adhesions. According to Dr. Suazo, examination of the gallbladder during laparoscopy looked normal, not inflamed and no pericholecystic fluid. Acute cholecystitis was ruled out and the gallbladder left intact. Patient was monitored postop overnight with no issues. He tolerated diet advancement to soft consistency. Patient is deemed stable for dischargeper surgery. Vital Signs/Physical Exam: Temp Pulse Resp BP Pulse Ox 97.3 F 86 14 103/68 96 12/21/22 08:00 12/21/22 08:00 12/21/22 10:31 12/21/22 08:00 12/21/22 10:31 General: Alert, In no apparent distress, Oriented x3 HEENT: PERRLA, Mucous membr. moist/pink, Sclerae nonicteric Neck: Supple, JVD not distended Respiratory: Clear to auscultation bilaterally, Normal air movement Cardiovascular: No edema, Regular rate/rhythm, Normal S1 S2 Gastrointestinal: Normal bowel sounds, Soft and benign, Non-distended Musculoskeletal: No swelling, No tenderness Integumentary: No rashes, No cyanosis Neurological: Normal strength at 5/5 x4 extr Laboratory Data at Discharge: WBC 6.00 K/uL (4.3-10.9) 12/21/22 02:41 Hgb 13.0 g/dL (13.6-17.9) L 12/21/22 02:41 Hct 39.1 % (39.6-49.0) L 12/21/22 02:41 Plt Count 186 K/uL (152-406) 12/21/22 02:41 PT 10.6 SECONDS (9.5-12.5) 12/19/22 10:27 INR 0.96 12/19/22 10:27 Sodium 132 mmol/L (136-145) L 12/21/22 02:41 Potassium 5.0 mmol/L (3.5-5.1) D 12/21/22 02:41 BUN 15 mg/dL (7-18) 12/21/22 02:41 Creatinine 1.16 mg/dL (0.70-1.30) 12/21/22 02:41 Glucose 332 mg/dL (74-106) H 12/21/22 02:41 Phosphorus 3.9 mg/dL (2.5-4.9) 12/21/22 02:41 Magnesium 1.5 mg/dL (1.6-2.4) L 12/21/22 02:41 Total Bilirubin 0.5 mg/dL (0.2-1.0) 12/20/22 02:39 AST 10 U/L (15-37) L 12/20/22 02:39 ALT 14 U/L (16-61) L 12/20/22 02:39 Alkaline Phosphatase 95 U/L (45-117) 12/20/22 02:39 Lipase 22 U/L (13-75) 12/19/22 02:52 Home Medications: Insulin 70/30 NPH/Reg Human [Novolin 70/30*] 35 unit SQ BEDTIME 07/21/13 Insulin 70/30 NPH/Reg Human [Novolin 70/30*] 45 unit SQ BREAKFAST 07/21/13 Atorvastatin Calcium [Lipitor] 40 mg PO BEDTIME 12/18/22 Furosemide [Lasix] 1 tab PO TID 12/18/22 Lisinopril [Zestril] 1 tab PO DAILY 12/18/22 Magnesium Oxide [Magnesium] 1 tab PO DAILY 12/18/22 Metoprolol Succinate 25 mg PO BEDTIME 12/18/22 Spironolactone 25 mg PO DAILY 12/18/22 Physician Discharge Instructions: Remove dressing in am and shower Keep wound clean and dry Dry gauze to wound daily Incentive Spirometer as instructed [place] 7.5 called into patient's pharmacy Abdominal Binder as instructed--may remove when sleeping or sitting Diet: AHA Activity: No lifting more than 10 lbs Followup: Jerzy Suazo MD [ACTIVE - CAN ADMIT] - 1 Week (Call to make an appointment) Time spent managing pt's care (in minutes): 34
[2022-12-21 14:39] VITALS: BP 111/72; TEMP 97.7
== END 2022-12-21 13:45 | disposition home or self-care (01) | DRG 336 ==
LOC: ER 16:18 → ERHOLD 21:32 → 2ND 23:24 → OBSVTOIN 12-19 17:15
PROVIDERS: ADMIT Internal Medicine Sleep Medicine; ATTEND Internal Medicine
PROC: 0WQF4ZZ Repair Abdominal Wall, Percutaneous Endoscopic Approach (ICD-10-PCS; 2022-12-20)
PROC: 0DNU4ZZ Release Omentum, Percutaneous Endoscopic Approach (ICD-10-PCS; principal; 2022-12-20 15:15)
DX: K43.0 Incisional hernia with obstruction, without gangrene (principal); I50.22 Chronic systolic (congestive) heart failure; I11.0 Hypertensive heart disease with heart failure; J44.9 Chronic obstructive pulmonary disease, unspecified; E78.5 Hyperlipidemia, unspecified; K21.9 Gastro-esophageal reflux disease without esophagitis; E11.65 Type 2 diabetes mellitus with hyperglycemia; G89.29 Other chronic pain; M54.9 Dorsalgia, unspecified; N20.0 Calculus of kidney; K82.8 Other specified diseases of gallbladder; Z79.4 Long term (current) use of insulin; Z88.8 Allergy status to other drugs, medicaments and biological substances; Z79.84 Long term (current) use of oral hypoglycemic drugs; Z79.899 Other long term (current) drug therapy; Z20.822 Contact with and (suspected) exposure to COVID-19
CPT/HCPCS: 36415; 71045; 74018; 74177; 76705; 78226; 80048; 80053; 80307; 81003; 81015; 82947; 83605; 83690; 83735; 83880; 84100; 84439; 84443; 84484; 85025; 85610; 87811; 93005; 94010; 94640; 96361; 96372; 96374; 96375; 99284; A9537; G0378; J0500; J0694; J1100; J1170; J1650; J1815; J2001; J2270; J2370; J2405; J2543; J2550; J2704; J2710; J3010; J3486; J7030; J7613; Q9967

== ENCOUNTER 2025-06-14 16:45 | Emergency (ER) | payer OTHER ==
[2025-06-14] MEDS ORDERED: IPRATROPIUM BROM 0.5MG/2.5ML ONE (17:11)
[2025-06-14] MEDS ORDERED: ALBUTEROL 2.5 MG/3 ML NEB SOL ONE (17:11)
[2025-06-14] MEDS ORDERED: ASPIRIN 81 MG CHEWABLE TABLET ONE (17:12)
[2025-06-14] MEDS ORDERED: FENTANYL CITR 100 MCG/2 ML ONE (17:12)
[2025-06-14 17:15] LABS: Absolute Lymphocytes (CBC) 1.9 K/uL (0.7-4.9); Hematocrit 45.5 % (39.6-49.0); Hemoglobin 15.4 g/dL (13.6-17.9); MCH 28.3 pg (27.0-35.0); MCHC 33.9 g/dL (32.0-36.0); MCV 83.5 fL (80-100); MPV 8.3 fL (7.6-11.3); Nucleated RBC Absolute Count 0.1 (0-0); Nucleated Red Blood Cells % 0.8 % (0-0); RBC Red Blood Cell Count 5.46 M/uL (4.33-5.43); White Blood Count 6.40 thou/uL (4.3-10.9)
[2025-06-14 17:23] LABS: Urine Microscopic Reflex YN NO UMIC
[2025-06-14 17:27] LABS: PT Prothrombin Time 10.1 SECONDS (10-13.0); Protime INR 0.89
[2025-06-14 17:39] LABS: METHAMPHETAM NEGATIVE (NEGATIVE); THC Cannibis NEGATIVE (NEGATIVE)
--- NOTE | 2025-06-14 17:52 | RAD REPORT ---
EXAM: Chest Single View HISTORY: 59 years Male Chest pain;SOB COMPARISON: 12/19/2022 FINDINGS: LUNGS/PLEURA: The lungs are clear. No pleural effusions or pneumothorax. No pulmonary edema. CARDIAC/MEDIASTINUM: The cardiac silhouette is within normal limits. UPPER ABDOMEN: No significant abnormality. BONES: No acute abnormality. LINES/TUBES/OTHER: Pacemaker present. IMPRESSION: No evidence of acute cardiopulmonary disease. No significant change from prior.
[2025-06-14 17:54] LABS: ALT/SGPT 19 U/L (16-61); Albumin 3.1 g/dL (3.4-5.0); Albumin/Globulin Ratio 0.9 (1.1-1.8); Alkaline Phosphatase 133 U/L (45-117); Anion Gap 19.6 mEq/L (5.0-15.0); BUN Blood Urea Nitrogen 20 mg/dL (7-18); Globulin 3.4 g/dL (2.3-3.5); Magnesium 1.9 mg/dL (1.6-2.4); NT PRO-BNP 362 pg/mL (<125); Potassium 3.6 mEq/L (3.5-5.1); Troponin High Sensitivity 7.8 pg/mL (<58.9)
[2025-06-14 17:55] LABS: AST/SGOT < 10 U/L (15-37); Bilirubin Indirect, Calculated 0.3 mg/dL (0.2-0.8)
[2025-06-14 17:56] LABS: Glucose Level 486 mg/dL (74-106)
[2025-06-14] MEDS ORDERED: NA CHLORIDE 0.9% 1,000 ML ONE (18:40)
[2025-06-14] MEDS ORDERED: INSULIN REGULAR (HUMAN) 100 UNIT/ML ONE ×2 (18:40→20:25)
[2025-06-14] MEDS ORDERED: LORAZEPAM 1 MG TABLET ONE (20:15)
--- NOTE | 2025-06-14 21:07 | EDPHYS ---
Physician Documentation [facility] Name: Lexa Bower Age: 59 yrs Sex: Male : 1965 Arrival Date: 06/14/2025 Time: 16:45 Bed 5 Private MD: ED Physician Joe Garcia HPI: 06/14 17:00 This 59 yrs old Male presents to ER via Wheelchair with complaints of Chest Pain, cp Breathing Difficulty. 17:00 The patient has shortness of breath at rest. Onset: The symptoms/episode began/occurred cp 2 day(s) ago. 17:00 Duration: The symptoms are continuous, and are steadily getting worse. cp 17:00 Associated signs and symptoms: Pertinent positives: non-productive cough, Pertinent cp negatives: diaphoresis, dizziness, fever, hemoptysis. Severity of symptoms: in the emergency department the symptoms are unchanged despite home interventions. Historical: - Allergies: 17:02 NKDA; iw - PMHx: 17:02 Depression; COPD; GERD; Diabetes - IDDM; Hypertension; Migraines; Seizures; High iw Cholesterol; - PSHx: 17:02 Pain pump (without any medication x 5 yrs); iw - Immunization history:: Adult Immunizations unknown. - Infectious Disease History:: Denies. - Social history:: Smoking status: Patient reports the use of cigarette tobacco products, denies chronic smoking, but will smoke occasionally. ROS: 17:05 Constitutional: Negative for body aches, chills, fever, poor PO intake, cp 17:05 Cardiovascular: Positive for chest pain, cp 17:05 Eyes: Negative for injury, pain, redness, and discharge, cp 17:05 ENT: Negative for drainage from ear(s), ear pain, sore throat, difficulty swallowing, difficulty handling secretions, 17:05 Respiratory: Positive for cough, shortness of breath, Negative for wheezing, 17:05 Abdomen/GI: Negative for vomiting, diarrhea, constipation, 17:05 Back: Negative for pain at rest, pain with movement, 17:05 Neuro: Negative for altered mental status, dizziness, headache, numbness, weakness, 17:05 All other systems are negative, Exam: 17:02 ECG was reviewed by the Attending Physician. cp 17:10 Constitutional: The patient appears in no acute distress, alert, awake, cp non-diaphoretic, non-toxic, well developed, well nourished, uncomfortable, 17:10 Head/Face: Normocephalic, atraumatic. cp 17:10 Eyes: Periorbital structures: appear normal, Conjunctiva: normal, no exudate, no injection, Sclera: no appreciated abnormality, Lids and lashes: appear normal, bilaterally, 17:10 ENT: External ear(s): are unremarkable, Nose: is normal, Mouth: Lips: moist, Oral mucosa: moist, Posterior pharynx: Airway: no evidence of obstruction, patent, 17:10 Neck: ROM/movement: is normal, is supple, without pain, no range of motions limitations, 17:10 Chest/axilla: Inspection: normal, Palpation: is normal, no crepitus, no tenderness, 17:10 Cardiovascular: Rate: normal, Rhythm: regular, Edema: is not appreciated, JVD: is not appreciated, 17:10 Respiratory: the patient does not display signs of respiratory distress, Respirations: cp labored breathing, that is mild, Breath sounds: decreased breath sounds, are not appreciated, stridor, is not appreciated, wheezing: is not appreciated, 17:10 Abdomen/GI: Inspection: abdomen appears normal, Palpation: abdomen is soft and non-tender, in all quadrants, 17:10 Back: pain, is absent, ROM is normal, cp 17:10 Neuro: Orientation: to person, place \T\ time. Mentation: is normal, Motor: moves all fours, strength is normal, Sensation: no obvious gross deficits, Vital Signs: 17:01 BP 118 / 66; Pulse 86; Resp 24; Temp 97.9; Pulse Ox 100% on R/A; Weight 58.97 kg; iw Height 5 ft. 7 in. ; Pain 8/10; 20:23 BP 91 / 57; Pulse 89; Resp 20 S; Pulse Ox 98% on R/A; kd3 21:11 BP 109 / 84; Pulse 82; Resp 17; Temp 97.9; Pulse Ox 98% ; Pain 0/10; zm 17:01 Body Mass Index 20.36 (58.97 kg, 170.18 cm) iw 17:01 Pain Scale: Adult iw 21:11 Pain Scale: Adult zm Corina Coma Score: 17:43 Eye Response: spontaneous(4). Motor Response: obeys commands(6). Verbal Response: dd2 oriented(5). Total: 15. 21:11 Eye Response: spontaneous(4). Motor Response: obeys commands(6). Verbal Response: zm oriented(5). Total: 15. MDM: 16:49 Medical Screening Exam initiated cp 17:00 Differential diagnosis: CHF exacerbation, Chronic Obstructive Pulmonary Disease cp Myocardial Infarction pneumonia, Pneumothorax pulmonary edema, Pulmonary Embolism Unstable Angina. 17:44 ED course: Jesús, brother, . ED course: Ledy, Mother, . rn 21:05 Data reviewed: vital signs, nurses notes, lab test result(s), EKG, radiologic studies. cp 21:05 Consideration of Admission/Observation Escalation of care including cp admission/observation considered. I considered the following discharge prescriptions or medication management in the emergency department Medications were administered in the Emergency Department. See MAR. Independent interpretation of the following test(s) in the Emergency Department EKG: See my EKG interpretation above. Care significantly affected by the following chronic conditions: Diabetes, Hypertension, Chronic Obstructive Pulmonary Disease. Counseling: I had a detailed discussion with the patient and/or guardian regarding the historical points, exam findings, and any diagnostic results supporting the discharge/admit diagnosis, lab results, radiology results, to return to the emergency department if symptoms worsen or persist or if there are any questions or concerns that arise at home. Response to treatment: the patient's symptoms have markedly improved after treatment, and as a result, I will discharge patient. Special discussion: Based on the patient's history, exam, and Dx evaluation, there is no indication for emergent intervention or inpatient Tx. It is understood by the patient/guardian that if the Sx's persist or worsen they need to return immediately for re-evaluation. 06/14 16:55 Order name: Basic Metabolic Panel; Complete Time: 18:17 cp 06/14 18:18 Interpretation: Normal except: NA 133; CL 97; CO2 20; ANION GAP 19.6; GLUC 486; BUN 20; cp GFR 73. 06/14 16:55 Order name: CBC with Diff; Complete Time: 17:45 cp 06/14 16:55 Order name: LFT's; Complete Time: 18:17 cp 06/14 16:55 Order name: Magnesium; Complete Time: 18:17 cp 06/14 16:55 Order name: NT PRO-BNP; Complete Time: 18:17 cp 06/14 16:55 Order name: PT-INR; Complete Time: 17:45 cp 06/14 16:55 Order name: Troponin HS; Complete Time: 18:17 cp 06/14 16:55 Order name: UA Rfx Jesus Cult if indicated; Complete Time: 17:45 cp 06/14 16:55 Order name: UDS; Complete Time: 17:45 cp 06/14 20:04 Order name: Troponin High Sensitivity; Complete Time: 20:56 cp 06/14 20:56 Interpretation: Reviewed. cp 06/14 20:34 Order name: Glucose, Ancillary Testing; Complete Time: 20:56 EDMS 06/14 20:56 Interpretation: Reviewed. cp 06/14 16:55 Order name: XRAY Chest (1 view); Complete Time: 18:17 cp 06/14 16:55 Order name: Cardiac monitoring; Complete Time: 17:23 cp 06/14 16:55 Order name: EKG - Nurse/Tech; Complete Time: 17:23 cp 06/14 16:55 Order name: IV Saline Lock; Complete Time: 17:23 cp 06/14 16:55 Order name: Labs collected and sent; Complete Time: 17:23 cp 06/14 16:55 Order name: O2 Per Protocol; Complete Time: 17:23 cp 06/14 16:55 Order name: O2 Sat Monitoring; Complete Time: 17:23 cp 06/14 20:05 Order name: Accucheck Blood Glucose; Complete Time: 20:23 cp EC:02 Rate is 82 beats/min. Rhythm is regular. MO interval is normal. QRS interval is normal. cp QT interval is normal. Interpreted by me. Reviewed by me. Administered Medications: 17:22 Drug: fentaNYL (PF) IVP 25 mcg IVP once Route: IVP; Site: right forearm; dd2 21:13 Follow up: Response: No adverse reaction zm 17:22 Drug: Albuterol Inhalation 2.5 mg Inhalation once Route: Inhalation; dd2 21:13 Follow up: Response: No adverse reaction zm 17:22 Drug: Ipratropium Inhalation Aerosol 0.5 mg Inhalation once Route: Inhalation; dd2 21:13 Follow up: Response: No adverse reaction zm 17:23 Drug: Aspirin PO Chewable Tablet 324 mg PO once; 81 mg tablets x 4 Route: PO; dd2 21:13 Follow up: Response: No adverse reaction zm 18:44 Drug: NS 0.9% IV 1000 ml IV at 1000 ml once; to be given as a bolus over 60 minutes dd2 Route: IV; Rate: 1000 ml; Site: right forearm; 21:13 Follow up: Response: No adverse reaction; IV Status: Completed infusion zm 18:45 Drug: Insulin Regular Human Sub-Q 15 units Sub-Q once {Co-Signature: hb (Blair, dd2 Joi RN).} Route: Sub-Q; Site: right upper arm; 21:13 Follow up: Response: No adverse reaction zm 20:22 Drug: LORazepam PO 1 mg PO once Route: PO; kd3 21:13 Follow up: Response: No adverse reaction zm 20:28 Drug: Insulin Regular Human Sub-Q 10 units Sub-Q once {Co-Signature: [email or web address] (bo Marroquin3 Himanshu RN).} Route: Sub-Q; Site: left upper arm; 21:12 Follow up: Response: No adverse reaction zm Disposition: 22:23 Co-signature as Attending Physician, Joe Garcia MD I agree with the assessment sp4 and plan of care. I reviewed the patient's care provided by the Advanced Practice Provider and agree with the diagnosis and treatment plan. Disposition Summary: 06/14/25 21:06 Discharge Ordered Notes: Location: Home cp Problem: new cp Symptoms: have improved cp Condition: Stable cp Diagnosis - Diabetes mellitus due to underlying condition with hyperglycemia cp - Chest pain, unspecified cp - Shortness of breath cp Followup: cp - With: Private Physician - When: 2 - 3 days - Reason: Recheck today's complaints Discharge Instructions: - Discharge Summary Sheet cp - Nonspecific Chest Pain, Adult cp - Shortness of Breath, Adult cp - Daily Diabetes Mellitus Record cp - Blood Glucose Monitoring, Adult cp - Diabetes Mellitus and Nutrition, Adult cp - Aspirin and Your Heart cp Forms: - Medication Reconciliation Form cp - Antibiotic Education cp - Prescription Opioid Use cp - Patient Portal Instructions cp - Leadership Thank You Letter cp Signatures: Dispatcher [employer] Corry Pretty RN RN iw Nieto, Roman, MD MD rn Page, Corey, PA-C PA-C cp Janessa Obregon RN RN kd3 Potepalov Joe, MD MD sp4 REGLA MOONEY RN RN dd2 Valerie Salazar RN zm Joi Pinto RN hb Himanshu Marroquin RN bm8 Corrections: (The following items were deleted from the chart) 16:55 16:55 BASIC METABOLIC PANEL+C.LAB.BRZ ordered. EDMS EDMS 16:55 16:55 CBC+H.LAB.BRZ ordered. EDMS EDMS 16:55 16:55 HEPATIC FUNCTION+C.LAB.BRZ ordered. EDMS EDMS 16:55 16:55 MAGNESIUM+C.LAB.BRZ ordered. EDMS EDMS 16:55 16:55 PROBNP+C.LAB.BRZ ordered. EDMS EDMS 16:55 16:55 PROTIME (+INR)+COAG.LAB.BRZ ordered. EDMS EDMS 16:55 16:55 Troponin High Sensitivity+C.LAB.BRZ ordered. EDMS EDMS 16:55 16:55 UA Rfx Jesus Cult if indicated+U.LAB.BRZ ordered. EDMS EDMS 16:55 16:55 URINE DRUG SCREEN+UC.LAB.BRZ ordered. EDMS EDMS 16:55 16:55 Chest Single View+RAD.RAD.BRZ ordered. EDMS EDMS 20:05 20:05 Troponin High Sensitivity+C.LAB.BRZ ordered. EDMS EDMS
--- NOTE | 2025-06-14 21:07 | ER ---
Nurse's Notes [facility] Name: Lexa Bower Age: 59 yrs Sex: Male : 1965 Arrival Date: 06/14/2025 Time: 16:45 Bed 5 Private MD: Diagnosis: Diabetes mellitus due to underlying condition with hyperglycemia;Chest pain, unspecified;Shortness of breath Presentation: 06/14 17:01 Chief complaint: Patient states: chest pain, SOB X 2 days. Coronavirus screen: Client iw presents with at least one sign or symptom that may indicate coronavirus-19. Ebola Screen: No symptoms or risks identified at this time. Initial Sepsis Screen: Does the patient meet any 2 criteria? RR > 20 per min. Does the patient have a suspected source of infection? No. Patient's initial sepsis screen is negative. Risk Assessment: Do you want to hurt yourself or someone else? Patient reports no desire to harm self or others. Onset of symptoms was June 12, 2025. 17:01 Method Of Arrival: Wheelchair iw 17:01 Acuity: JENNY 2 iw Historical: - Allergies: 17:02 NKDA; iw - PMHx: 17:02 Depression; COPD; GERD; Diabetes - IDDM; Hypertension; Migraines; Seizures; High iw Cholesterol; - PSHx: 17:02 Pain pump (without any medication x 5 yrs); iw - Immunization history:: Adult Immunizations unknown. - Infectious Disease History:: Denies. - Social history:: Smoking status: Patient reports the use of cigarette tobacco products, denies chronic smoking, but will smoke occasionally. Screenin:43 [facility] ED Fall Risk Assessment (Adult) History of falling in the last 3 months, dd2 including since admission No falls in past 3 months (0 pts) Confusion or Disorientation No (0 pts) Intoxicated or Sedated No (0 pts) Impaired Gait No (0 pts) Mobility Assist Device Used No (0 pt) Altered Elimination No (0 pt) Score/Fall Risk Level 0 - 2 = Low Risk Oriented to surroundings, Maintained a safe environment, Educated pt \T\ family on fall prevention, incl call for assistance when getting out of bed, Assessed \T\ reinforced patient's understanding of fall precautions, Hourly rounding (assess needs \T\ fall precautionary measures) done. Abuse screen: Denies threats or abuse. Denies injuries from another. Nutritional screening: No deficits noted. Tuberculosis screening: No symptoms or risk factors identified. Assessment: 17:43 General: Appears in no apparent distress. uncomfortable, Behavior is cooperative, dd2 appropriate for age, anxious. Pain: Complains of pain in chest. Neuro: No deficits noted. Cardiovascular: Reports chest pain, shortness of breath, Patient's skin is warm and dry. Respiratory: Airway is patent Respiratory effort is even, unlabored, Respiratory pattern is regular, symmetrical, tachypnea Breath sounds are diminished bilaterally. the patient has mild shortness of breath. Respiratory: Reports shortness of breath at rest on exertion. GI: No deficits noted. No signs and/or symptoms were reported involving the gastrointestinal system. : No deficits noted. No signs and/or symptoms were reported regarding the genitourinary system. EENT: No deficits noted. No signs and/or symptoms were reported regarding the EENT system. Derm: No deficits noted. No signs and/or symptoms reported regarding the dermatologic system. Musculoskeletal: No deficits noted. No signs and/or symptoms reported regarding the musculoskeletal system. 21:11 Reassessment: Patient appears in no apparent distress at this time. Patient and/or zm family updated on plan of care and expected duration. Pain level reassessed. Patient is alert, oriented x 3, equal unlabored respirations, skin warm/dry/pink. Patient denies pain at this time. Patient states feeling better. Patient states symptoms have improved. Vital Signs: 17:01 BP 118 / 66; Pulse 86; Resp 24; Temp 97.9; Pulse Ox 100% on R/A; Weight 58.97 kg; iw Height 5 ft. 7 in. ; Pain 8/10; 20:23 BP 91 / 57; Pulse 89; Resp 20 S; Pulse Ox 98% on R/A; kd3 21:11 BP 109 / 84; Pulse 82; Resp 17; Temp 97.9; Pulse Ox 98% ; Pain 0/10; zm 17:01 Body Mass Index 20.36 (58.97 kg, 170.18 cm) iw 17:01 Pain Scale: Adult iw 21:11 Pain Scale: Adult zm Corina Coma Score: 17:43 Eye Response: spontaneous(4). Motor Response: obeys commands(6). Verbal Response: dd2 oriented(5). Total: 15. 21:11 Eye Response: spontaneous(4). Motor Response: obeys commands(6). Verbal Response: zm oriented(5). Total: 15. ED Course: 16:46 Patient arrived in ED. nh2 16:49 Russell Andrade PA-C is PHCP. cp 16:49 Efren Candelario MD is Attending Physician. cp 17:02 Triage completed. iw 17:02 Arm band placed on. iw 17:20 Inserted saline lock: 20 gauge forearm, using aseptic technique. pm7 17:21 Initial lab(s) drawn, by me, sent to lab. pm7 17:23 EKG done, by ED staff, reviewed by Russell Andrade PA-C. Initial Neb Treatment Given as dd2 ordered Patient was instructed and evaluated on procedure. Patient maintains SpO2 saturation greater than 95% on room air. 17:43 Patient has correct armband on for positive identification. Bed in low position. Call dd2 light in reach. Side rails up X2. Client placed on continuous cardiac and pulse oximetry monitoring. NIBP monitoring applied. reservoir engineering consultant on. Door closed. Noise minimized. Warm blanket given. Pillow given. Verbal reassurance given. 17:43 No provider procedures requiring assistance completed. dd2 17:49 XRAY Chest (1 view) In Process Unspecified. EDMS 19:16 Janessa Obregon, RN is Primary Nurse. kd3 19:18 Joe Garcia MD is Attending Physician. cp 20:23 Troponin High Sensitivity Sent. kd3 21:12 Provided Education on: follow up. blood sugar . kd3 21:12 IV discontinued, intact, bleeding controlled, No redness/swelling at site. Pressure kd3 dressing applied. 21:14 Provided Education on: post er care. zm Administered Medications: 17:22 Drug: fentaNYL (PF) IVP 25 mcg IVP once Route: IVP; Site: right forearm; dd2 21:13 Follow up: Response: No adverse reaction zm 17:22 Drug: Albuterol Inhalation 2.5 mg Inhalation once Route: Inhalation; dd2 21:13 Follow up: Response: No adverse reaction zm 17:22 Drug: Ipratropium Inhalation Aerosol 0.5 mg Inhalation once Route: Inhalation; dd2 21:13 Follow up: Response: No adverse reaction zm 17:23 Drug: Aspirin PO Chewable Tablet 324 mg PO once; 81 mg tablets x 4 Route: PO; dd2 21:13 Follow up: Response: No adverse reaction zm 18:44 Drug: NS 0.9% IV 1000 ml IV at 1000 ml once; to be given as a bolus over 60 minutes dd2 Route: IV; Rate: 1000 ml; Site: right forearm; 21:13 Follow up: Response: No adverse reaction; IV Status: Completed infusion zm 18:45 Drug: Insulin Regular Human Sub-Q 15 units Sub-Q once {Co-Signature: roxanne (sudhir Pinto RN).} Route: Sub-Q; Site: right upper arm; 21:13 Follow up: Response: No adverse reaction zm 20:22 Drug: LORazepam PO 1 mg PO once Route: PO; kd3 21:13 Follow up: Response: No adverse reaction zm 20:28 Drug: Insulin Regular Human Sub-Q 10 units Sub-Q once {Co-Signature: lele (britney Marroquin RN).} Route: Sub-Q; Site: left upper arm; 21:12 Follow up: Response: No adverse reaction Medication: 17:43 VIS not applicable for this client. dd2 Outcome: 21:06 Discharge ordered by . charlee 21:12 Discharged to home ambulatory, via wheelchair, kd3 21:12 Condition: stable 21:12 Discharge instructions given to patient, Instructed on discharge instructions, follow up and referral plans. Demonstrated understanding of instructions, follow-up care, 21:14 Patient left the ED. zm Signatures: Dispatcher [employer] EDHI Corry Saucedo RN RN iw Page, Corey, PA-C PA-C Janessa Rain RN RN kd3 Valerie Salazar RN RN zm DAVIS, DIANA, RN RN dd2 Jose C Flor Jr, RN RN nh2 Mills, Paige pm7 Joi Pinto RN, Brad RN [id number] Corrections: (The following items were deleted from the chart) 17:22 17:07 First set of blood cultures drawn by pa, pm7 pm7 20:28 20:23 BP 91 / 57; Pulse 89bpm; Resp 16bpm; Pulse Ox 98% RA; kd3 kd3
[2025-06-14 21:22] VITALS: TEMP 97.9
[2025-06-14 21:23] VITALS: BP 109/84; O2SAT 98
== END 2025-06-14 21:14 | disposition home or self-care (01) ==
LOC: ER 16:45
DX: E11.65 Type 2 diabetes mellitus with hyperglycemia (principal); R06.02 Shortness of breath; R05.9 Cough, unspecified; J44.9 Chronic obstructive pulmonary disease, unspecified; I10 Essential (primary) hypertension; F17.210 Nicotine dependence, cigarettes, uncomplicated
CPT/HCPCS: 96361; 85025; 80048; 36415; 83735; 85610; 82947 ×2; 80076; 81003; 84484 ×2; 83880; 80307; 71045; 94640; 96372; 96374; 99285; J7613; J7644; J3010; J1815 ×2; J7030; 93005